=== PATIENT | female | born 1945 | race Caucasian/White ===

== ENCOUNTER 2023-06-21 16:05 | Outpatient (OUT) | payer MEDICARE, SELFPAY ==
--- NOTE | 2023-06-21 | XR_ITS ---
The [address] [address] Patient Name: MIYA THOMAS MRN: [id number] date: 1945 Sex: F Assigned Patient Location: [facility] Current Patient Location: Accession/Order Number: [id number] Exam Date: 06/21/2023 16:28 Report Date: 06/22/2023 05:37 At the request of: LONI ROSALES Procedure: XR chest 2V EXAMINATION: XR chest 2V HISTORY: Chronic cough, R05.3 COMPARISON: XR chest 03/31/2019, CT chest 09/10/2022 FINDINGS: LUNGS: Hyperexpanded lungs. No appreciable infiltrates or mass. VASCULATURE: No increased pulmonary vasculature. PLEURA: No pneumothorax, effusion, or pleural thickening. CARDIAC: No cardiomegaly or cardiac silhouette abnormality. MEDIASTINUM: No visible mass or adenopathy. BONES: No fracture or visible bone lesion. OTHER: Negative. XR/XR chest 2V IMPRESSION: 1. No acute cardiopulmonary process. 2. Stable hyperexpanded lungs. Electronically authenticated by: ABBE WEBSTER Date: 06/22/2023 05:37
== END 2023-06-21 16:06 | disposition home or self-care (01) ==
LOC: RAD 16:12
PROVIDERS: PCP Family Medicine; Visit Provider Family Medicine
DX: R05.3 Chronic cough (principal)
CPT/HCPCS: 71046

== ENCOUNTER 2023-08-11 09:57 | Outpatient (OUT) | payer MEDICARE, SELFPAY ==
--- NOTE | 2023-08-11 10:10 | MM_ITS ---
Patient: MIYA THOMAS Exam Date: 08/11/2023 : 1945 Gender:F Ordering : DR Dileep Covarrubias . Admission #: [id number] Family : Order #: [id number] CLICK HERE TO VIEW EXAM RADIOLOGY REPORT PROCEDURE: MM TOMOSYNTHESIS SCREENING BI COMPARISON: MG MAMM SCREEN 3D APPLE CAD, 08/03/2021. MG MAMM SCREEN 3D APPLE CAD, 08/04/2022. INDICATIONS: Screening Calculator Name NCI Breast Cancer Risk Assessment Tool 5 Year Breast Cancer Risk 2.40% Lifetime Breast Cancer Risk 4.90% Personal Breast Cancer No Personal Ovarian Cancer No Treatments None Family Cancers Mother with lung cancer at age 82. LOCATION: [facility] BREAST COMPOSITION: Heterogeneously dense,which may obscure small masses. FINDINGS: DIAGNOSTIC CATEGORY 1--NEGATIVE. NO CHANGE FROM COMPARISON ASSESSMENT. Scattered benign-appearing calcifications are present. RIGHT BREAST: No significant suspicious finding. LEFT BREAST: No significant suspicious finding. RECOMMENDATIONS: ROUTINE MAMMOGRAM AND CLINICAL EVALUATION IN 12 MONTHS. PLEASE NOTE: A NORMAL MAMMOGRAM DOES NOT EXCLUDE THE POSSIBILITY OF BREAST CANCER. A CLINICALLY SUSPICIOUS PALPABLE LUMP SHOULD BE BIOPSIED. Dictated by: Amilcar Patterson MD on 08/12/2023 at 08:45 Approved by: Amilcar Patterson MD on 08/12/2023 at 08:47
--- NOTE | 2023-08-11 10:10 | CT_ITS ---
[address] [address] Patient Name: MIYA THOMAS MRN: [id number] date: 1945 Sex: F Assigned Patient Location: CT Current Patient Location: Accession/Order Number: [id number] Exam Date: 08/11/2023 10:20 Report Date: 08/12/2023 07:35 At the request of: LONI ROSALES Procedure: CT lung screening low-dose EXAMINATION: CT lung screening low-dose HISTORY: Nicotine Dependence F17.210 COMPARISON: No relevant comparison available. TECHNIQUE: Axial, Coronal, and Sagittal images were created without the administration of IV contrast material. Dose reduction techniques were achieved by using automated exposure control and/or adjustment of mA and/or kV according to patient size and/or use of iterative reconstruction technique. FINDINGS: LUNGS: Scattered subcentimeter pulmonary nodules the largest measures 5 mm, subpleural right lower lobe axial image #91. Mild centrilobular emphysema with a biapical predominance. No bronchiectasis or peribronchial thickening PLEURA: No mass, effusion, or pneumothorax. VASCULATURE: No abnormality. TEO: No mass or pathologic adenopathy. MEDIASTINUM: No mass or pathologic adenopathy. CARDIAC: No enlargement or pericardial effusion. Moderate coronary atherosclerosis AORTA: No aneurysm or dissection. CHEST WALL: No mass or axillary adenopathy BONES: No bone lesion or fracture. LIMITED ABDOMEN: No suspicious findings. Limited images of the upper abdomen. OTHER: Negative. CT/CT lung screening low-dose IMPRESSION: LUNG SCREENING: Lung-RADS Category 2- Benign Appearance or Behavior. Nodules with a very low likelihood of becoming a clinically active cancer due to size or lack of growth. 2. Continue annual screening with LDCT in 12 months. Electronically authenticated by: VERONICA DUNCAN Date: 08/12/2023 07:35
== END 2023-08-11 09:58 | disposition home or self-care (01) ==
PROVIDERS: PCP Family Medicine; Visit Provider Family Medicine
DX: F17.210 Nicotine dependence, cigarettes, uncomplicated (principal); Z12.31 Encounter for screening mammogram for malignant neoplasm of breast; Z80.1 Family history of malignant neoplasm of trachea, bronchus and lung
CPT/HCPCS: 71271; 77063; 77067

== ENCOUNTER 2023-09-07 11:57 | Outpatient (OUT) | payer MEDICARE, SELFPAY ==
[2023-09-07 12:40] LABS: Basophils Absolute Auto 0.1 10^3/uL (0.0-0.1); Basophils Percent Auto 0.9 % (0.2-2.0); Eosinophils Absolute Auto 0.2 10^3/uL (0.0-0.7); Eosinophils Percent Auto 2.5 % (0.9-7.0); Hematocrit 43.4 % (36.0-48.0); Hemoglobin 14.2 g/dL (12.0-16.0); Immature Granulocytes Abs Auto 0.02 10^3/uL (0.00-0.03); Immature Granulocytes Pct Auto 0.3 % (0.0-0.5); Lymphocytes Absolute Auto 1.8 10^3/uL (1.2-3.8); Lymphocytes Percent Auto 26.2 % (20.5-60.0); Mean Corpuscular HGB Conc 32.7 g/dL (29.9-35.2); Mean Corpuscular Hemoglobin 31.4 pg (26.7-34.0); Mean Platelet Volume 9.7 fL (9.5-13.5); Monocytes Absolute Auto 0.8 10^3/uL (0.3-0.8); Monocytes Percent Auto 12.1 % (1.7-12.0); Neutrophils Absolute Auto 3.9 10^3/uL (1.4-6.5); Platelet Count 332 10^3/uL (150-450); Red Blood Count 4.52 10^6/uL (4.20-5.40); Red Cell Distribution Width 13.2 % (11.0-15.0); White Blood Count 6.7 10^3/uL (4.0-11.0)
[2023-09-07 13:10] LABS: Estimated Average Glucose 114 mg/dL; Glycohemoglobin A1C 5.6 % (4.5-6.2)
[2023-09-07 13:25] LABS: Chloride 102 mmol/L (98-107); Potassium 4.2 mmol/L (3.5-5.1); Sodium 139 mmol/L (136-145)
[2023-09-07 13:26] LABS: Alanine Aminotransferase 18 U/L (14-59); Alkaline Phosphatase 102 U/L (46-116); Anion Gap 9.9; Aspartate Amino Transferase 22 U/L (15-37); BUN Creatinine Ratio 22.7; Bilirubin Total 0.5 mg/dL (0.2-1.0); Calcium 9.8 mg/dL (8.5-10.1); Carbon Dioxide 31.3 mmol/L (21.0-32.0); Estimated GFR (African America >60 (>=60); Estimated GFR (Non-African Ame >60 (>=60); Glucose 88 mg/dL (74-106); Total Protein 7.2 g/dL (6.4-8.2)
[2023-09-07 13:27] LABS: Albumin Globulin Ratio 1.1; Albumin Level 3.8 g/dL (3.4-5.0); Chol HDL Ratio 3.3; Cholesterol 198 mg/dL (<=200); Free T3 2.66 pg/mL (2.18-3.98); Globulin 3.4 g/dL; HDL Cholesterol 60 mg/dL (40-60); Thyroid Stimulating Hormone 2.143 uIU/mL (0.358-3.740); Triglycerides 59 mg/dL (<=150); VLDL CHOLESTEROL 11.8 mg/dL
== END 2023-09-07 11:58 | disposition home or self-care (01) ==
LOC: LAB 12:00
PROVIDERS: PCP Family Medicine; Visit Provider Family Medicine
DX: K21.9 Gastro-esophageal reflux disease without esophagitis (principal); R43.9 Unspecified disturbances of smell and taste; J44.9 Chronic obstructive pulmonary disease, unspecified; E78.00 Pure hypercholesterolemia, unspecified; R73.09 Other abnormal glucose; D64.9 Anemia, unspecified; E55.9 Vitamin D deficiency, unspecified
CPT/HCPCS: 36415; 80053; 80061; 82306; 83036; 83540; 84436; 84443; 84481; 85025

== ENCOUNTER 2023-11-08 12:46 | Emergency (ER) | payer MEDICARE, SELFPAY ==
[2023-11-08 12:56] VITALS: BP 124/51; PULSE 81; RESP 24; TEMP 36.6; O2SAT 94; BMI 21.0
--- OUTSIDE RECORDS SUMMARY | 2023-11-08 12:56 | XMS_ITS | CCD ---
Author Name Unknown Address [address] [place] [address] Organization [facility] Care Team Providers Care Can Line Operator Name Role Phone DR LONI COVARRUBIAS Admitting Unavailable CHERELLEY, DR IVEY Attending Unavailable CHERELLEY, DR IVEY Consulting Unavailable BOBBY, DR IVEY Primary Care Unavailable CHERELLEY, DR IVEY Primary Care Unavailable BOBBY, DR IVEY Admitting Unavailable BOBBY, DR IVEY Attending Unavailable BOBBY, DR IVEY Consulting Unavailable PERLA, DR VERONICA Christian Consulting Unavailable HIPOLITO FRANCO Admitting Unavailable HIPOLITO FRANCO Attending Unavailable ELEANOR, DR ABBE Quiroz Consulting Unavailable BOBBY, DR IVEY Primary Care Unavailable HIPOLITO FRANCO Consulting Unavailable BOBBY, DR IVEY Admitting Unavailable BOBBY, DR IVEY Attending Unavailable BOBBY, DR IVEY Consulting Unavailable BOBBY, DR IVEY Primary Care Unavailable ZIEBSABIHA, DR ABBE Quiroz Consulting Unavailable CHERELLEY, DR IVEY Admitting Unavailable HOY, DR IVEY Attending Unavailable HOY, DR IVEY Consulting Unavailable BOBBY, DR IVEY Primary Care Unavailable BOBBY, DR IVEY Admitting Unavailable BOBBY, DR IVEY Attending Unavailable BOBBY, DR IVEY Consulting Unavailable BOBBY, DR IVEY Primary Care Unavailable BOBBY, DR IVEY Primary Care Unavailable BOBBY, DR IVEY Consulting Unavailable BOBBY, DR IVEY Admitting Unavailable BOBBY, DR IVEY Attending Unavailable BILLY, DR ARNOLD Admitting Unavailable BILLY, DR ARNOLD Attending Unavailable PERLA, DR VERONICA Christian Consulting Unavailable BOBBY, DR IVEY Primary Care Unavailable BILLY, DR ARNOLD Consulting Unavailable Loni Covarrubias MD Primary Care Provider [phone] LONI COVRARUBIAS Primary Care Unavailable CATALINO LONDON Attending Unavaila ble Allergies Allergy Classification Reported Allergen(s) Allergy Type Date of Onset Reaction(s) Facility (1 source) black walnut pollen extract Drug Allergy [facility] Repository (1 source) HMG-CoA reductase inhibitor Drug Allergy 02-28-2023 Unknown [facility] Medications Completed/Discontinued Medications Medication Drug Class(es) Dates Sig (Normalized) Sig (Original) [id number] 200 actuat albuterol 0.09 mg/actuat metered dose inhaler (1 source) beta2-Adrenergic Agonist Start: 11-12-2020 take 2 puff(s) by inhalation every six hours as needed albuterol HFA (PROAIR HFA) 90 mcg/actuation inhaler 2 Puffs every 6 hours as needed. Take as directed 0 11/12/2020 Active Comment on above: 2 Puffs every 6 hour s as needed. Take as directed ascorbic acid 500 mg oral tablet (1 source) Vitamin C Start: 11-07-1999 ascorbic acid, vitamin C, (VITAMIN C) 500 mg tablet aspirin 81 mg delayed release oral tablet (1 source) Platelet Aggregation Inhibitor, Nonsteroidal Anti-inflammatory Drug Start: 11-07-1989 aspirin, enteric coated (ASPIRIN, ENTERIC COATED) 81 mg EC tablet benoxinate hydrochloride 4 mg/ml / fluorescein sodium 2.5 mg/ml ophthalmic solution (1 source) Diagnostic Dye Start: 02-28-2023 End: 03-01-2023 fluorescein-benoxi manuel 0.25-0.4 % 1 Drop (FLURESS) biotin 2.5 mg oral capsule (1 source) Start: 11-07-1989 Biotin 2,500 mcg cap CALCIUM CITRATE-VITAMIN D3 ORAL (1 source) Start: 11-07-1989 CALCIUM CITRATE-VITAMIN D3 ORAL chondroitin sulfates 400 mg / glucosamine hydrochloride 500 mg oral capsule (1 source) Start: 08-07-1990 glucosamine-chondr oitin 500-400 mg capsule denosumab (1 source) RANK Ligand Inhibitor Start: 07-08-2020 denosumab (PROLIA SUBCUTANEOUS) docusate sodium 100 mg oral capsule (1 source) Start: 11-07-1989 docusate sodium (COLACE) 100 mg capsule ezetimibe 10 mg oral tablet (1 source) Dietary Cholesterol Absorption Inhibitor Start: 07-05-2020 take 1 tablet by mouth once daily ezetimibe (ZETIA) 10 mg tablet Take 10 mg by mouth once daily. 0 07/05/2020 Active Comment on above: Take 10 mg by mouth once daily. 30 actuat fluticasone furoate 0.1 mg/actuat / vilanterol 0.025 mg/actuat dry powder inhaler (1 source) Corticosteroid, beta2-Adrenergic Agonist Start: 09-07-2020 BREO ELLIPTA 100-25 mcg/dose inhaler gabapentin 100 mg oral capsule (1 source) Anti-epileptic Agent Start: 11-12-2020 take 1 capsule by mouth once daily as needed gabapentin (NEURONTIN) 100 mg capsule Take 1 capsule by mouth once daily as needed (for sciatica) for up to 180 days. 0 11/12/2020 Active Comment on above: Take 1 capsule by cox monett once daily as needed (for sciatica) for up to 180 days. gemfibrozil 600 mg oral tablet (1 source) Peroxisome Proliferator Receptor alpha Agonist Start: 09-03-2010 take 1 tablet by mouth once daily gemfibrozil (LOPID) 600 mg ORAL tablet Take one(1) tablet two(2) times daily. 0 09/03/2010 Active Comment on above: Take one(1) tablet t wo(2) times daily. ketorolac tromethamine 5 mg/ml ophthalmic solution (2 sources) Nonsteroidal Anti-inflammatory Drug, Cyclooxygenase Inhibitor Start: 11-19-2020 End: 02-28-2023 keTORolac (ACULAR) 0.5 % ophthalmic solution USE DIRECTED BY PHYSICIAN, IN OPERATIVE EYE, BEGINNING ONE DAY AFTER SURGERY 1 Bottle 0 12/03/2020 02/28/2023 Discontinued (Course of therapy completed) Comment on above: USE DIRECTED BY Brandie LAKE, IN OPERATIVE EYE, BEGINNING ONE DAY AFTER SURGERY mecobalamin 1 mg chewable tablet (1 source) Start: 11-07-2014 mecobalamin, vitamin B12, 1,000 mcg chew multivit,iron,cigarette examiner als/lutein (CENTRUM SILVER ULTRA WOMEN'S ORAL) (1 source) Start: 11-07-1999 multivit,iron,mine rals/lutein (CENTRUM SILVER ULTRA WOMEN'S ORAL) omega 4-klv-nfr-fish oil (FISH OIL) 100-160-1,000 mg cap (1 source) omega 2-zhb-fdt-fish oil (FISH OIL) 100-160-1,000 mg cap Fish Oil 0 Active Comment on above: Fish Oil pantoprazole 40 mg delayed release oral tablet (1 source) Proton Pump Inhibitor Start: 09-03-2010 take 1 tablet by mouth once daily pantoprazole (PROTONIX) 40 mg ORAL tablet Take one(1) tablet daily. 0 09/03/2010 Active Comment on above: Take one(1) tablet d aily. phenylephrine hydrochloride 25 mg/ml ophthalmic solution (1 source) alpha-1 Adrenergic Agonist Start: 02-28-2023 End: 03-01-2023 PHENYLephrine 2.5 % 1 Drop (AK-DILATE, HENNA-SYNEPHRINE) prednisoLONE acetate 10 mg/ml ophthalmic suspension (2 sources) Corticosteroid Start: 11-19-2020 End: 02-28-2023 prednisoLONE acetate (PRED FORTE, ECONOPRED PLUS) 1 % ophthalmic suspension USE DIRECTED BY PHYSICIAN, IN OPERATIVE EYE, BEGINNING ONE DAY AFTER SURGERY 1 Bottle 0 12/03/2020 02/28/2023 Discontinued (Course of therapy completed) Comment on above: USE DIRECTED BY Brandie LAKE, IN OPERATIVE EYE, BEGINNING ONE DAY AFTER SURGERY simethicone 125 mg oral capsule (1 source) Start: 11-07-2014 Simethicone 125 mg cap tropicamide 10 mg/ml ophthalmic solution (1 source) Anticholinergic Start: 02-28-2023 End: 03-01-2023 tropicamide 1 % 1 Drop (MYDRIACYL) vitamin e 180 mg oral capsule (1 source) Start: 11-07-1989 vitamin E mixed 400 unit cap Problems Active Problems Problem Classification Problem Date Documented Date Episodic/Chronic Cataract (1 source) Bilateral pseudophakia; Translations: [Presence of intraocular lens] Chronic Chronic obstructive pulmonary disease and bronchiectasis (2 sources) Chronic obstructive pulmonary disease, unspecified; Translations: [Chronic obstructive lung disease] Onset: 2 11-12-2020 Chronic Disorders of lipid metabolism (3 sources) Pure hypercholesterolemia, unspecified; Translations: [Hyperlipidemia, unspecified] Onset: 2 11-12-2020 Chronic Esophageal disorders (1 source) Gastroesophageal reflux disease; Translations: [Gastro-esophageal reflux disease without esophagitis] 11-12-2020 Chronic Inflammation; infection of eye (except that caused by tuberculosis or sexually transmitteddisease) (2 sources) Keratoconjunctivitis sicca; Translations: [Keratoconjunctivitis sicca, not specified as Sjogren's, bilateral] Chronic Nutritional deficiencies (1 source) Vitamin D deficiency, unspecified; Translations: [VITAMIN D DEFICIENCY UNSPECIFIED] Onset: 2 Chronic Osteoporosis (4 sources) Age-related osteoporosis without current pathological fracture; Translations: [AGE-REL OSTEOPOR W/O CURR PATH FX] Onset: 3 Chronic Other eye disorders (1 source) Bilateral vitreous degeneration of eyes; Translations: [Vitreous degeneration, bilateral] Chronic Other eye disorders (1 source) Bilateral vitreous floaters; Translations: [Other vitreous opacities, bilateral] Chronic Other lower respiratory disease (1 source) Other nonspecific abnormal finding of lung field; Translations: [OTH NONSPECIFIC ABN FIND LNG FIELD] Onset: 2 Episodic Residual codes; unclassified (1 source) Tobacco user; Translations: [Tobacco use] 11-12-2020 Episodic Retinal detachments; defects; vascular occlusion; and retinopathy (2 sources) Retinal pigment epithelial abnormality; Translations: [Other specified retinal disorders] Chronic Substance-related disorders (4 sources) Nicotine dependence, cigarettes, uncomplicated; Translations: [NICOTINE DEPEND CIGARETTES UNCOMP] Onset: 2 Chronic Unclassified (3 sources) COUGH, UNSPECIFIED; Translations: [COUGH, UNSPECIFIED] Onset: 2 Unclassified (1 source) CONTACT W/AND (SUSP) EXPOS COVID-19; Translations: [CONTACT W/AND (SUSP) EXPOS COVID-19] Onset: 2 Past or Other Problems Problem Classification Problem Date Documented Da te Episodic/Chronic Calculus of urinary tract (4 sources) Calculus of kidney; Translations: [CALCULUS OF KIDNEY] Onset: 12-18-2021 Episodic Deficiency and other anemia (1 source) Anemia, unspecified; Translations: [ANEMIA UNSPECIFIED] Onset: 09-01-2022 Episodic Diabetes mellitus without complication (1 source) Other abnormal glucose; Translations: [OTHER ABNORMAL GLUCOSE] Onset: 09-01-2022 Episodic Malaise and fatigue (4 sources) Other fatigue; Translations: [OTHER FATIGUE] Onset: 08-27-2022 Episodic Other lower respiratory disease (1 source) Other forms of dyspnea; Translations: [OTHER FORMS OF DYSPNEA] Onset: 09-01-2022 Episodic Other screening for suspected conditions (not mental disorders or infectious disease) (4 sources) Encounter for screening mammogram for malignant neoplasm of breast; Translations: [ENC SCR MAMMO MALIG NEOPLASM BREAST] Onset: 08-04-2022 Episodic Pulmonary heart disease (1 source) Personal history of pulmonary embolism; Translations: [PERSONAL HISTORY PULMONARY EMBOLISM] Onset: 09-01-2022 Episodic Residual codes; unclassified (1 source) Family history of malignant neoplasm of trachea, bronchus and lung; Translations: [FAM HX MALIG NEOPLSM TRACH BRON LNG] Onset: 08-06-2022 Episodic Unclassified (1 source) COUGH, UNSPECIFIED; Translations: [COUGH, UNSPECIFIED] Onset: 05-12-2022 Results Test Name Value Interpretation Reference Range Facil ity CALCIUMon 12-07-2022 Calcium [Mass/Vol] 9.4 mg/dL Normal 8.5-10.1 [facility] Comment on above: Performed By: #### Sherry TAMAYO CA #### [facility] [address] [place] [address] Dr. Lori Bautista CREATININEon 12-07-2022 Creatinine [Mass/Vol] 0.64 mg/dL Normal 0.55-1.02 [facility] Comment on above: Performed By: #### Sherry TAMAYO CA #### [facility] [address] [place] [address] Dr. Lori Bautista EGFR-AF MONTENEGRIN >60 Normal >=60 [facility] Comment on above: Performed By: #### Sherry TAMAYO CA #### [facility] [address] [place] [address] Dr. Lori Bautista EGFR-NON AF MONTENEGRIN >60 Normal >=60 [facility] Comment on above: Performed By: #### Sherry TAMAYO, CA #### [facility] [address] [place] [address] LUNG CANCER SCREENINGon 1 11-10-2021 CT LUNG CANCER SCREENING EXAMINATION: CT LUNG CANCER SCREENING HISTORY: Tobacco dependence caused by cigarettes COMPARISON: No relevant comparison available. TECHNIQUE: Axial, Coronal, and Sagittal images were created without the administration of IV contrast material. Dose reduction techniques were achieved by using automated exposure control and/or adjustment of mA and/or kV according to patient size and/or use of iterative reconstruction technique. FINDINGS: LUNGS: Mild peribronchial thickening without bronchiectasis. Area of patchy and nodular opacity is identified in the medial aspect of the right lower lobe best visualized on images 73 through 90 nodules measuring up to 5.5 mm. A few scattered additional punctate pulmonary nodules, nonspecific mild diffuse centrilobular emphysema with an upper lobe predominance PLEURA: No mass, effusion, or pneumothorax. VASCULATURE: No abnormality. TEO: No mass or pathologic adenopathy. MEDIASTINUM: No mass or pathologic adenopathy. CARDIAC: No enlargement, pericardial thickening, or significant calcification. AORTA: No aneurysm or dissection. CHEST WALL: No mass or axillary adenopathy BONES: No bone lesion or fracture. LIMITED ABDOMEN: No suspicious findings. Limited images of the upper abdomen. OTHER: Negative. IMPRESSION: Area of groundglass and subcentimeter nodules in the medial aspect of the right lower lobe. This could represent an inflammatory, infectious, granulomatous or malignant process. Short interval follow-up is required with CT exam in 6 months Lung-RADs 3 FINDINGS: Solid nodule(s): Greater than/equal 6 mm to >8 mm at baseline OR new 4 mm to <6 mm part solid nodule(s) greater than/equal to 6 mm total diameter with solid component <6 mm OR new <6 mm total diameter; nonsolid nodule(s) (GGN): Greater than/equal to [address] or new. MANAGEMENT: 6 month LDCT. Electronically authenticated by: VERONICA DUNCAN Date: 2022-09-10 14:57 Normal [facility] INSULINon 08-28-2022 Insulin 4.3 uIU/mL Normal 2.6-24.9 [facility] Comment on above: Performed By: #### I NSULIN #### [facility] [address] [place] [address] Dr. Lori Bautista CBC AUTO DIFFon 08-27-2022 BASO # 0.1 103/ul Normal 0.0-0.1 [facility] Comment on above: Performed By: #### C BC #### [facility] [address] [address] [address] Lori Bautista Basophils/100 WBC (Bld) 0.6 % Normal 0.2-2.0 [facility] Comment on above: Performed By: #### C BC #### [facility] [address] [place] [address] Dr. Lori Bautista EO # 0.1 103/ul Normal 0.0-0.7 [facility] Comment on above: Performed By: #### C BC #### [facility] [address] [place] [address] Dr. Lori Bautista Eosinophils/100 WBC (Bld) 0.6 % Critically low 0.9-7.0 [facility] Comment on above: Performed By: #### C BC #### [facility] [address] [place] [address] Dr. Lori Bautista Erythrocyte distribution width (RBC) [Ratio] 13.2 % Normal 11.0-15.0 [facility] Comment on above: Performed By: #### C BC #### [facility] [address] [place] [address] Dr. Lori Bautista Hematocrit (Bld) [Volume fraction] 41.3 % Normal 36.0-48.0 [facility] Comment on above: Performed By: #### C BC #### [facility] [address] [place] [address] Dr. Lori Bautista Hemoglobin (Bld) [Mass/Vol] 13.5 g/dL Normal 12.0-16.0 [facility] Comment on above: Performed By: #### C BC #### [facility] [address] [place] [address] Dr. Lori Bautista IG # 0.02 10e3/ul Normal 0.00-0.03 [facility] Comment on above: Performed By: #### C BC #### [facility] [address] [place] [address] Dr. Lori Bautista IG % 0.3 % Normal 0.0-0.5 [facility] Comment on above: Performed By: #### C BC #### [facility] [address] [place] [address] Dr. Lori Bautista LYMPH # 2.0 103/ul Normal 1.2-3.8 [facility] Comment on above: Performed By: #### C BC #### [facility] [address] [place] [address] Dr. Lori Bautista Lymphocytes/100 WBC (Bld) 25.6 % Normal 20.5-60.0 [facility] Comment on above: Performed By: #### C BC #### [facility] [address] [place] [address] Dr. Lori Bautista MANUAL DIFF REQ NO Normal [facility] Comment on above: Performed By: #### C BC #### [facility] [address] [place] [address] Dr. Lori Bautista MCH (RBC) [Entitic mass] 31.1 pg Normal 26.7-34.0 [facility] Comment on above: Performed By: #### C BC #### [facility] [address] [place] [address] Dr. Lori Bautista MCHC (RBC) [Mass/Vol] 32.7 g/dL Normal 29.9-35.2 [facility] Comment on above: Performed By: #### C BC #### [facility] [address] [place] [address] Dr. Lori Bautista MCV (RBC) [Entitic vol] 95.2 fL Normal 81.0-99.0 [facility] Comment on above: Performed By: #### C BC #### [facility] [address] [place] [address] Dr. Lori Bautista MONO # 0.7 103/ul Normal 0.3-0.8 [facility] Comment on above: Performed By: #### C BC #### [facility] [address] [place] [address] Dr. Lori Bautista Monocytes/100 WBC (Bld) 8.4 % Normal 1.7-12.0 [facility] Comment on above: Performed By: #### C BC #### [facility] [address] [place] [address] Dr. Lori Bautista NEUT # 5.0 103/ul Normal 1.4-6.5 [facility] Comment on above: Performed By: #### C BC #### [facility] [address] [address] [address] Lori Bautista Neutrophils/100 WBC (Bld) 64.5 % Normal 43.0-75.0 [facility] Comment on above: Performed By: #### C BC #### [facility] [address] [address] [address] Lori Bautista Platelet mean volume (Bld) [Entitic vol] 9.9 fL Normal 9.5-13.5 [facility] Comment on above: Performed By: #### C BC #### [facility] [address] [address] [address] Lori Bautista PLT 310 103/ul Normal 150-450 [facility] Comment on above: Performed By: #### C BC #### [facility] [address] [address] [address] Lori Bautista RBC 4.34 106/ul Normal 4.20-5.40 [facility] Comment on above: Performed By: #### C BC #### [facility] [address] [address] [address] Lori Bautista WBC 7.8 103/ul Normal 4.0-11.0 [facility] Comment on above: Performed By: #### C BC #### [facility] [address] [address] [address] Lori Bautista FREE THYROXINE INDEX T7on FTI 2.26 Normal 1.30-4.50 [facility] Comment on above: Performed By: #### L IPID, TSH, T7, CMP ####[facility] [address] [address]Dr. Lori Bautista T3U 31.0 % Normal 30.0-39.0 [facility] Comment on above: Performed By: #### L IPID, TSH, T7, CMP ####[facility] [address] [id number]. Lori Bautista T4 [Mass/Vol] 7.30 ug/dL Normal 4.80-13.90 [facility] Comment on above: Performed By: #### L IPID, TSH, T7, CMP ####[facility] [address] [id number] Bautista GLYCOHEMOGLOBIN A1Con 2021 ADA RECOMMENDATION SEE BELOW Normal [facility] Comment on above: Result Comment: ADA RECOMMENDED LIMIT 4.0 - 6.0 ADA THERAPEUTIC TARGET < 7.0 ACTION SUGGESTED > 7.0 Performed By: #### A 1C #### [facility] [address] [address] [address] Lori Bautista Glucose [Mass/Vol] 117 mg/dL Normal [facility] Comment on above: Performed By: #### A 1C #### [facility] [address] [address] [address] Lori Bautista HbA1c (Bld) [Mass fraction] 5.7 % Normal 4.5-6.2 [facility] Comment on above: Performed By: #### A 1C #### [facility] [address] [address] [address] Lori Bautista IRONon 08-27-2022 Iron [Mass/Vol] 105.0 ug/dL Normal 50.0-170.0 [facility] Comment on above: Performed By: #### I SAROJ VITAD ####[facility] [address] [id number] Bautista LIPID PROFILEon 08-27-2022 CHOL-HDL RATIO NORM SEE BELOW Normal [facility] Comment on above: Result Comment: 3.3 - 4.4 LOW RISK 4.4 - 7.1 AVERAGE RISK 7.1 - 11.0 MODERATE RISK >11.0 HIGH RISK Performed By: #### L IPID, TSH, T7, CMP ####[facility] [address] [id number] Bautista Cholesterol [Mass/Vol] 186 mg/dL Normal <=200 [facility] Comment on above: Performed By: #### L IPID, TSH, T7, CMP ####[facility] [address] [id number] Bautista Cholesterol in HDL [Mass/Vol] 55 mg/dL Normal 40-60 [facility] Comment on above: Performed By: #### L IPID, TSH, T7, CMP ####[facility] [address] [id number]. Lori Bautista Cholesterol in LDL [Mass/Vol] 116.4 mg/dL Normal [facility] Comment on above: Performed By: #### L IPID, TSH, T7, CMP ####[facility] [address] [id number]. Lori Bautista Cholesterol.total/Cho lesterol in HDL [Mass ratio] 3.4 {ratio} Normal [facility] Comment on above: Performed By: #### L IPID, TSH, T7, CMP ####[facility] [address] [id number]. Lori Bautista HDL NORMAL > or = 60 mg/dl - LO W CARDIOVASCULAR RISK <40 mg/dl - HIGH CARDIOVASCULAR RISK Normal [facility] Comment on above: Performed By: #### L IPID, TSH, T7, CMP ####[facility] [address] [id number]. Lori Bautista LDL CALC NORMAL SEE BELOW Normal [facility] Comment on above: Result Comment: <100 mg/dl OPTIMAL 100 - 129 mg/dl NEAR OR ABOVE OPTIMAL 130 - 159 mg/dl BORDERLINE HIGH 160 - 189 mg/dl HIGH >190 mg/dl VERY HIGH Performed By: #### L IPID, TSH, T7, CMP ####[facility] [address] [id number]. Lori Bautista Triglyceride [Mass/Vol] 73 mg/dL Normal <=150 [facility] Comment on above: Performed By: #### L IPID, TSH, T7, CMP ####[facility] [address] [id number]. Lori Bautista VLDL CALC 14.6 mg/dL Normal [facility] Comment on above: Performed By: #### L IPID, TSH, T7, CMP ####[facility] [address] [id number]. Lori Bautista PROF 14(COMP METB)on 022 Albumin [Mass/Vol] 3.9 g/dL Normal 3.4-5.0 [facility] Comment on above: Performed By: #### L IPID, TSH, T7, CMP ####[facility] [address] [address]Dr. Kimcira Michele Albumin/Globulin [Mass ratio] 1.2 {ratio} Normal [facility] Comment on above: Performed By: #### L IPID, TSH, T7, CMP ####[facility] [address] [place], [place] [address]Dr. Lori Bautista ALP [Catalytic activity/Vol] 68 U/L Normal 46-116 [facility] Comment on above: Performed By: #### L IPID, TSH, T7, CMP ####[facility] [address] [place], [place] [address]Dr. Lori Bautista ALT [Catalytic activity/Vol] 20 U/L Normal 14-59 [facility] Comment on above: Performed By: #### L IPID, TSH, T7, CMP ####[facility] [address] [place], [place] [address]Dr. Lori Bautista Anion gap [Moles/Vol] 8.2 mmol/L Normal [facility] Comment on above: Performed By: #### L IPID, TSH, T7, CMP ####[facility] [address] [place], [place] [address]Dr. Lori Bautista AST [Catalytic activity/Vol] 22 U/L Normal 15-37 [facility] Comment on above: Performed By: #### L IPID, TSH, T7, CMP ####[facility] [address] [place], [place] [address]Dr. Lori Bautista Bilirubin [Mass/Vol] 0.3 mg/dL Normal 0.2-1.0 [facility] Comment on above: Performed By: #### L IPID, TSH, T7, CMP ####[facility] [address] [place], [place] [address]Dr. Lori Bautista Calcium [Mass/Vol] 9.2 mg/dL Normal 8.5-10.1 [facility] Comment on above: Performed By: #### L IPID, TSH, T7, CMP ####[facility] [address] [address]Dr. Lori Bautista Chloride [Moles/Vol] 105 mmol/L Normal 98-107 [facility] Comment on above: Performed By: #### L IPID, TSH, T7, CMP ####[facility] [address] [place], [place] [address]Dr. Lori Bautista CO2 [Moles/Vol] 30.0 mmol/L Normal 21.0-32.0 [facility] Comment on above: Performed By: #### L IPID, TSH, T7, CMP ####[facility] [facility] [id number] [place], [place] [address]Dr. Lori Bautista Creatinine [Mass/Vol] 0.67 mg/dL Normal 0.55-1.02 [facility] Comment on above: Performed By: #### L IPID, TSH, T7, CMP ####[facility] [address] [place], [place] [address]Dr. Lori Bautista EGFR-AF MONTENEGRIN >60 Normal >=60 [facility] Comment on above: Performed By: #### L IPID, TSH, T7, CMP ####[facility] [address] [place], [place] [address]Dr. Lori Bautista EGFR-NON AF MONTENEGRIN >60 Normal >=60 [facility] Comment on above: Performed By: #### L IPID, TSH, T7, CMP ####[facility] [address] [place], [place] [address]Dr. Lori Bautista Globulin (S) [Mass/Vol] 3.3 g/dL Normal [facility] Comment on above: Performed By: #### L IPID, TSH, T7, CMP ####[facility] [address] [place], [place] [address]Dr. Lori Michele Glucose [Mass/Vol] 84 mg/dL Normal 74-106 [facility] Comment on above: Performed By: #### L IPID, TSH, T7, CMP ####[facility] [address] [place], [place] [address]Dr. Lori Bautista Potassium [Moles/Vol] 4.2 mmol/L Normal 3.5-5.1 [facility] Comment on above: Performed By: #### L IPID, TSH, T7, CMP ####[facility] [address] [place] [address]Dr. Lori Bautista Protein [Mass/Vol] 7.2 g/dL Normal 6.4-8.2 [facility] Comment on above: Performed By: #### L IPID, TSH, T7, CMP ####[facility] [address] [place], [place] [id number]. Lori Bautista Sodium [Moles/Vol] 139 mmol/L Normal 136-145 [facility] Comment on above: Performed By: #### L IPID, TSH, T7, CMP ####[facility] [address] [place], [place] [address]Dr. Lori Bautista Urea nitrogen [Mass/Vol] 18.0 mg/dL Normal 7.0-18.0 [facility] Comment on above: Performed By: #### L IPID, TSH, T7, CMP ####[facility] [address] [place], [place] [address]Dr. Lori Bautista Urea nitrogen/Creatinine [Mass ratio] 26.9 mg/mg Normal [facility] Comment on above: Performed By: #### L IPID, TSH, T7, CMP ####[facility] [address] [place], [place] [address]Dr. Lori Bautista TSHon 08-27-2022 TSH 1.615 uIU/mL Normal 0.358-3.740 [facility] Comment on above: Performed By: #### L IPID, TSH, T7, CMP ####[facility] [address] [place], [place] [address]Dr. Lori Bautista VITAMIN D 25 OHon 08-27-2022 VIT D 25-OH 73.1 ng/mL Normal [facility] Comment on above: Performed By: #### I SAROJ, VITAD ####[facility] [address] [place], [place] [address]Dr. Lori Bautista VIT D RANGES SEE BELOW Normal [facility] Comment on above: Result Comment: <20 ng/mL Vit D deficient 20 - <30 ng/mL Vit D insufficient 30 - 100 ng/mL Vit D sufficient >100 ng/mL Potential Toxicity Performed By: #### I SAROJ VITROXANNA ####[facility] [address] [place], [place] [address]Yd. Lori Bautista MG MAMM SCREEN 3D APPLE CADon 08-04-2022 MG MAMM SCREEN 3D APPLE CAD Patient: MIYA THOMAS Exam Date: 08/04/2022 : 1945 Gender:F Ordering : DR CATALINA CERVANTES Admission #: [id number] Family : Order #: [id number] CLICK HERE TO VIEW EXAM RADIOLOGY REPORT PROCEDURE: MAMMOGRAM SCREENING 3D BILATERAL CAD COMPARISON: MG MAMM SCREEN APPLE W CAD, 08/01/2020. MG MAMM SCREEN 3D APPLE CAD, 08/03/2021. INDICATIONS: Screening mammography Calculator Name NCI Breast Cancer Risk Assessment Tool 5 Year Breast Cancer Risk 2.40% Lifetime Breast Cancer Risk 5.30% Personal Breast Cancer No Personal Ovarian Cancer No Treatments None Family Cancers Mother with lung cancer at age 82. LOCATION: [facility] BREAST COMPOSITION: Heterogeneously dense,which may obscure small masses. FINDINGS: DIAGNOSTIC CATEGORY 1--NEGATIVE. NO CHANGE FROM COMPARISON ASSESSMENT. Scattered benign-appearing calcifications are present. RIGHT BREAST: No significant suspicious finding. LEFT BREAST: No significant suspicious finding. RECOMMENDATIONS: ROUTINE MAMMOGRAM AND CLINICAL EVALUATION IN 12 MONTHS. PLEASE NOTE: A NORMAL MAMMOGRAM DOES NOT EXCLUDE THE POSSIBILITY OF BREAST CANCER. A CLINICALLY SUSPICIOUS PALPABLE LUMP SHOULD BE BIOPSIED. Dictated by: Veronica Duncan MD on 08/04/2022 at 13:24 Approved by: Veronica Duncan MD on 08/04/2022 at 13:25 Normal [facility] Covid-19 PCR (CVDTBH)on SARS-CoV-2 (COVID-19) RNA PABLO+probe Ql (Unsp spec) Not detected Normal NOT DETECTED [facility] Comment on above: Result Comment: This test is not yet approved or cleared by the [place] FDA. When there are no FDA-approved or cleared tests available, and other criteria are met, FDA can make tests available under an emergency access mechanism called an Emergency Use Authorization (EUA). The EUA for this test is supported by the [place] of Health and Human Service's (HHS's) declaration that circumstances exist to justify the emergency use of in vitro diagnostics for the detection and/or diagnosis of the virus that causes COVID-19. This EUA will remain in effect (meaning this test can be used) for the duration of the COVID-19 declaration justifying emergency of IVDs, unless it is terminated or revoked by FDA (after which the test may no longer be used). When diagnostic testing is negative, the possibility of a false negative should be considered in the context of a patient's recent exposures and the presence of clinical signs and symptoms consistent with SARS-CoV-2. Performed By: #### C VDTB #### [facility] [address] [place] [address] Dr. Lori Bautista SYMPTOMATIC COVID-19 ANTIGEN on 05-12-2022 EUA Statement SEE BELOW Normal [facility] Comment on above: Result Comment: This test has not been FDA cleared or approved, but has been authorized by the FDA under an Emergency Use Authorization (EUA) for use by authorized laboratories certified under CLIA that meet the requirements to perform moderate or high complexity testing. This test has been authorized only for the detection of proteins from SARS-CoV-2, not for any other viruses or pathogens. The emergency use of this test is authorized for the duration of the declaration that circumstances exist justifying the authorization of emergency use of in vitro diagnostic tests for detection and/or diagnosis of Covid-19 under section 564(b)(1) of the Act, 21 U.S.C. 360bbb-3(b)(1), unless the declaration is terminated or authorization is revoked sooner. Performed By: #### C VDAGS #### [facility] [address] [place] [address] Dr. Lori Bautista SARS-CoV-2 (COVID-19) RNA PABLO+probe Ql (Unsp spec) Negative Normal NEGATIVE [facility] Comment on above: Performed By: #### C VDAGS #### [facility] [address] [place] [address] Dr. Lori Bautista CALCIUMon 05-04-2022 Calcium [Mass/Vol] 9.6 mg/dL Normal 8.5-10.1 [facility] Comment on above: Performed By: #### LAZARUS LOBO ####[facility] [address] [place] [address]Dr. Lori Bautista CREATININEon 05-04-2022 Creatinine [Mass/Vol] 0.68 mg/dL Normal 0.55-1.02 [facility] Comment on above: Performed By: #### LAZARUS LOBO ####[facility] [address] [place] [address]Dr. Lori Bautista EGFR-AF MONTENEGRIN Normal >=60 [facility] Comment on above: Performed By: #### LAZARUS LOBO ####[facility] [address] [place] [address]Dr. Lori Bautista EGFR-NON AF MONTENEGRIN Normal >=60 [facility] Comment on above: Performed By: #### LAZARUS LOBO ####[facility] [address] [place] [address]Dr. Lori Bautista XR DEXA BONE DENSITYon 03-29 XR DEXA BONE DENSITY EXAMINATION: XR DEX A BONE DENSITY, 03/29/2022 11:32 AM EDT HISTORY: Senile osteoporosis COMPARISON: DEXA bone densitometry 11/02/2018 TECHNIQUE: Dual-energy X-ray absorptiometry (DEXA) bone density study performed for the axial skeleton. FINDINGS: SPINE ANALYSIS: Average bone mineral density is 1.045 g/cm2. T-score (standard deviation relative to young adult mean): -1.1 . +7.8% change since prior study. HIP ANALYSIS: Lowest bone mineral density is within the left femoral neck, 0.63 g/cm2. T-score (standard deviation relative to young adult mean): -2.6 . -0.6% change since prior study. IMPRESSION: World Da Organization Classification: Osteoporosis - High Fracture Risk Electronically authenticated by: ABBE WEBSTER Date: 2022-03-29 12:43 Normal [facility] XR KUB 1 VIEWon 12-18-2021 XR KUB 1 VIEW EXAMINATION: XR KUB 1 VIEW HISTORY: Kidney stone COMPARISON: XR KUB 03/19/2021 FINDINGS: KIDNEY/URETER - RIGHT: No visible renal or ureteral calcifications. KIDNEY/URETER - LEFT: No visible renal or ureteral calcifications. PELVIS: No visible ureteral stones. Stable pelvic calcifications favoring phleboliths. BOWEL: Large amount of stool throughout the bowel. No abnormal dilation or evidence of obstruction. BONES: Levocurvature of the lumbar spine. OTHER: Negative. No abnormal gaseous collections. IMPRESSION: 1. No visible urinary tract calculi. Evaluation is limited by dense overlying bowel content. Electronically authenticated by: ABBE WEBSTER Date: 2021-12-18 15:43 Normal [facility] Encounters Encounter Date Encounter Type Care Provider Facility Start: 02-28-2023 End: 02-28-2023 ambulatory LONI COVARRUBIAS Facility:[facility] Start: 02-28-2023 End: 02-28-2023 Patient encounter procedure Catalino Connor Lita OD Work Phone: Ophthalmology Comment on above: Vitreous degeneratio n, bilateral (Primary Dx); Floaters in visual field, bilateral; Keratoconjunctivitis sicca of both eyes not specified as Sjogren's; SPK (superficial punctate keratitis), bilateral; Pseudophakia of both eyes; Retinal pigment epithelial mottling of macula; Drusen of right macula Start: 12-07-2022 End: 12-07-[address] LONI COVARRUBIAS Facility:[facility] Start: 09-10-2022 End: 09-11-[address] LONI COVARRUBIAS Facility:[facility] Start: 08-27-2022 End: 08-28-[address] LONI COVARRUBIAS Facility:[facility] Start: 08-04-2022 End: 08-05-[address] CATALINA CERVANTES Facility:[facility] Start: 05-12-2022 End: 05-12-[address] LONI COVARRUBIAS Facility:[facility] Start: 05-04-2022 End: 05-05-[address] LONI COVARRUBIAS Facility:[facility] Start: 03-29-2022 End: 03-30-[address] LONI COVARRUBIAS Facility:[facility] Start: 12-18-2021 End: 12-19-2021 ambulatory HIPOLITO FRANCO Facility:[facility] Plan of Treatment Date Care Activity Detail Author Start: 02-17-2025 OCT MACULA CIRRUS OU (BOTH EYES) OCT MACULA CIRRUS OU (BOTH EYES) OPHT Imaging Routine 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 Expected: 02/17/2025 [facility] Work Phone: Comment on above: Expected: 02/17/2025 Start: 11-07-2022 ADVANCE DIRECTIVE DISCUSSION ADVANCE DIRECTIVE DISCUSSION [facility] Start: 11-07-2022 DEPRESSION ASSESSMENT DEPRESSION ASS ESSMENT [facility] Start: 05-03-2022 COVID-19 VACCINE (4 - Booster for Pfizer series) COVID-19 VACCINE (4 - Booster for Pfizer series) [facility] Start: 02-11-2012 BONE DENSITY BONE DENSITY [facility] Start: 1997 Influenza vaccination LUNG CANCER [facility] Start: 1997 SHINGRIX VACCINE (1 of 2) SHINGRIX VACCINE (1 of 2) [facility] Start: 02-11-1992 DIABETES SCREEN DIABETES SCREEN [facility] Start: 1966 Urine microalbumin profile DTAP,TDAP,TD (1 - Tdap) [facility] Start: 1965 ANNUAL PCP TEAM JAVASCRIPT DEVELOPER ALONDRA DISEASE VISIT ANNUAL PCP TEAM CHRONIC DISEASE VISIT [facility] Start: 1965 HEPATITIS C SCREENING HEPATITIS C [facility] Start: 1965 SPIROMETRY SPIROMETRY [facility] Start: 1953 PNEUMOCOCCAL: 65+ (1 - PCV) PNEUMOCOCCAL: 65+ (1 - PCV) [facility] OCT MACULA CIRRUS OU (BOTH EYES) OCT MACULA CIRRUS OU (BOTH EYES) OPHT Imaging Routine 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 02/28/2023 5:04 PM EDT [facility] Work Phone: [facility] Payers Date Payer Category Payer Unknown [employer] O [id number] 2020-Present [phone] [address] [place] [address] O [id number] 1959 Unknown [id number] 1945 Unknown [id number] 1945 Unknown [id number] 1945 Unknown [id number] 1945 Unknown [id number] 1945 Unknown [id number] 1945 Unknown [id number] 1945 Unknown [id number] 1945 Unknown [id number] Social History Date Type Detail Facility Start: [facility]-12-[facility] Work Phone: History of tobacco use Cigarette Smoker C [facility] Work Phone: Start: 11-12-2020 Cigarettes smoked current (pack per day) - Reported 1 [facility] Start: 11-12-2020 Tobacco use and exposure Smokeless tobacco non-user [facility] Work Phone: Start: 02-28-2023 Alcohol intake Lifetime non-d art (finding) [facility] Start: 09-09-2020 History SDOH Alcohol Frequency 1 [facility] Start: 1945 Sex Assigned At Female C [facility] Medical Equipment Procedure Code Equipment Code Equipment Origin al Text Equipment Identifier Dates Lens Iol 0d +15 Derik Uv Abs - [id number] Start: 11-19-2020 Comment on above: Description: -0.26 Lens Iol 0d +15 Derik Uv Abs - [id number] Start: 12-03-2020 Comment on above: Description: -0.33 Progress note 02-28-2023 Note Date & Type Note Facility 02-28-2023 Note HNO ID: [id number] Author: Catalino London, OD Service: ? Author Type: NETWORK SUPPORT SPECIALIST Type: Progress Notes Filed: 02/28/2023 5:05 PM Note Text: ASSESSMENT/PLAN: 1. Vitreous degeneration, bilateral - ICD9: 379.21, ICD10: H43.813 (primary diagnosis) 2. Floaters in visual field, bilateral - ICD9: 379.24, ICD10: H43.393 Posterior vitreous detachment 's not acute Typical vit floaters OU Pt ed and reassured Monitor Floater and flashes changes and return to clinic if any 3. Keratoconjunctivitis sicca of both eyes not specified as Sjogren's - ICD9: 370.33, ICD10: H16.223 4. SPK (superficial punctate keratitis), bilateral - ICD9: 370.21, ICD10: H16.143 Increase consistent Artificial tears use Return to clinic if signs and/or symptoms changes 5. Pseudophakia of both eyes - ICD9: V43.1, ICD10: Z96.1 Pt happy sc and OTC readers 6. Retinal pigment epithelial mottling of macula - ICD9: 362.89, ICD10: H35.89 7. Drusen of right macula - ICD9: 362.57, ICD10: H35.361 Asymmetric drusen and RPE changes Update Mac oct today I have confirmed and edited as necessary the relevant ophthalmic history, ROS, and the exam findings as obtained by others. I have seen and examined this patient. I also have reviewed and agree with the assessment and plan as stated above and agree with all of its relevant components. Catalino London, OD February 28, 2023 1:19 PM [facility] History of Present illness Narrative 02-28-2023 Catalino Nikolas Lita, OD - 02/28/2023 1:19 PM EDT Note Date & Type Note Facility 02-28-2023 History of Presen t illness Narrative ASSESSMENT/PLAN: 1. Vitreous degeneration, bilateral - ICD9: 379.21, ICD10: H43.813 (primary diagnosis) 2. Floaters in visual field, bilateral - ICD9: 379.24, ICD10: H43.393 Posterior vitreous detachment 's not acute Typical vit floaters OU Pt ed and reassured Monitor Floater and flashes changes and return to clinic if any 3. Keratoconjunctivitis sicca of both eyes not specified as Sjogren's - ICD9: 370.33, ICD10: H16.223 4. SPK (superficial punctate keratitis), bilateral - ICD9: 370.21, ICD10: H16.143 Increase consistent Artificial tears use Return to clinic if signs and/or symptoms changes\ 5. Pseudophakia of both eyes - ICD9: V43.1, ICD10: Z96.1 Pt happy sc and OTC readers 6. Retinal pigment epithelial mottling of macula - ICD9: 362.89, ICD10: H35.89 7. Drusen of right macula - ICD9: 362.57, ICD10: H35.361 Asymmetric drusen and RPE changes Update Mac oct today I have confirmed and edited as necessary the relevant ophthalmic history, ROS, and the exam findings as obtained by others. I have seen and examined this patient. I also have reviewed and agree with the assessment and plan as stated above and agree with all of its relevant components. Catalino London, OD February 28, 2023 1:19 PM documented in this encounter [facility] Evaluation note Note Date & Type Note Facility Evaluation note Diagnosis Vitreous degeneration, bilateral- Primary Floaters in visual field, bilateral Keratoconjunctivitis sicca of both eyes not specified as Sjogren's Keratoconjunctivitis sicca, not specified as Sjogren's SPK (superficial punctate keratitis), bilateral Pseudophakia of both eyes Lens replaced by other means Retinal pigment epithelial mottling of macula Other retinal disorders 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 documented in this encounter [facility] Summary Purpose Family History No Family History Records FoundNo Family History Records Found Advance Directives No Advanced Directives Records FoundNo Advanced Directives Records Found Medications Administered Section Inactive Administered Medications - up to 3 most recent administrations Medication Order MAR Action Action Date Dose Rate Site fluorescein-benoxinate 0.25-0.4 % 1 Drop (FLURESS) 1 Drop, BOTH EYES, DIRECTED, Starting on Tue02/28/23 at 1230, Until Tue03/01/23 at 0029, Administer for applanation tonometry. In the event of a Fluress shortage, administer [place]-Fluor 1 drop into both eyes as directed for applanation tonometry, OPHT CLINIC MED ORDERS Given 02/28/2023 12:30 PM EDT 1 Drop PHENYLephrine 2.5 % 1 Drop (AK-DILATE, HENNA-SYNEPHRINE) 1 Drop, BOTH EYES, DIRECTED, Starting on Tue02/28/23 at 1230, Until Tue03/01/23 at 0029, Administer for dilation PROTECT FROM LIGHT, OPHT CLINIC MED ORDERS Given 02/28/2023 12:30 PM EDT 1 Drop tropicamide 1 % 1 Drop (MYDRIACYL) 1 Drop, BOTH EYES, DIRECTED, Starting on Tue02/28/23 at 1230, Until Tue03/01/23 at 0029, Administer for dilation, OPHT CLINIC MED ORDERS Given 02/28/2023 12:30 PM EDT 1 Drop Additional Source Comments INFORMATION SOURCE (unrecogn ized section and content) DATE CREATED AUTHOR 12/07/2022 [facility] DATE CREATED AUTHOR 'S ORGANBRADY ATION 03/01/2023 [facility] Source Comments (unrecognize d section and content) In the event this informatio n is protected by the Federal Confidentiality of Alcohol and Drug Abuse Patient Records regulations: The Federal rules restrict any use of the information to criminally investigate or prosecute any alcohol or drug abuse patient.[facility] Reason for Visit (unrecogniz ed section and content) Reason Comments Yearly Exam Floaters Both Eyes Care Teams (unrecognized sec tion and content) Can Line Operator Relationship Specialty Start Date End Date Loni Covarrubias MD PCP - General Family Medicine 08/31/10 FOR RECORDS PERTAINING TO PATIENTS WHO ARE OR HAVE BEEN ENROLLED IN A CHEMICAL DEPENDENCY/SUBSTANCEABUSE PROGRAM, SOME INFORMATION MAY BE OMITTED. This clinical summary was aggregated from multiple sources. Caution should be exercised in using it in the provision of clinical care. This summary normalizes information from multiple sources, and as a consequence, information in this document may materially change the coding, format and clinical context of patient data. In addition, data may be omitted in some cases. CLINICAL DECISIONS SHOULD BE BASED ON THE PRIMARY CLINICAL RECORDS. [facility] [employer] [facility]. provides no warranty or guarantee of the accuracy or completeness of information in this document.
[2023-11-08 13:13] VITALS: O2SAT 92
--- NOTE | 2023-11-08 13:23 | XR_ITS ---
The [address] [address] Patient Name: MIYA THOMAS MRN: [id number] date: 1945 Sex: F Assigned Patient Location: ER Current Patient Location: ER Accession/Order Number: [id number] Exam Date: 11/08/2023 13:30 Report Date: 11/08/2023 13:45 At the request of: HARSHAD HERNANDEZ Procedure: XR chest 1V EXAMINATION: XR chest 1V 11/08/2023 10:44 AM PST HISTORY: cough, SOB TECHNIQUE: Single frontal view of the chest acquired. COMPARISONS: Chest CT 08/11/2023 FINDINGS: Lines/tubes/other: None. Heart and mediastinum: The cardiac silhouette is within normal limits for size. Bones: No acute osseous abnormality. Lungs: The lungs are clear. There is no evidence of pneumonia or pulmonary edema. Pleura: There is no significant pleural effusion or pneumothorax. Other: None. XR/XR chest 1V IMPRESSION: No acute cardiopulmonary abnormality. Electronically authenticated by: AME CHURCH Date: 11/08/2023 13:45
--- NOTE | 2023-11-08 13:25 | ED.SOB1 ---
Documented by User: Tracey Howard 11/08/23 15:35 HPI - SOB/Dyspnea General Chief Complaint: Shortness of Breath/Dyspnea Stated Complaint: SHORTNESS OF BREATH/COUGH Time Seen by Provider: 11/08/23 13:23 Source: patient Mode of arrival: walk-in Limitations: no limitations History of Present Illness HPI Narrative: 78 year old female presents to the ED for cough, congestion, SOB, fatigue, body aches. Onset was 11/03/23. She is concerned she was exposed to Covid-19 on 10/31/23 at a family gathering. She has hx COPD. She does not wear oxygen at home. Her is also feeling ill. Denies fever, emesis, diarrhea. Denies pain. Related Data Previous Rx's Medication Instructions Recorded benzonatate 100 mg capsule 100 mg PO TID PRN cough #30 caps 11/08/23 prednisone 10 mg tablet See Rx Instructions .Route 11/08/23 .COMPLEX #30 tabs Allergies Allergy/AdvReac Type Severity Reaction Status Date / Time No Known Drug Allergies Allergy Verified 11/08/23 13:01 Review of Systems ROS Constitutional Reports: chills and fatigue; Denies: fever Ears, nose, mouth, and throat Denies: throat pain or neck pain Cardiovascular Denies: chest pain or edema Respiratory Reports: shortness of breath, cough and wheezing Gastrointestinal Denies: abdominal pain, nausea, vomiting or diarrhea Musculoskeletal Reports: back pain, joint pain and muscle cramps Integumentary/Breast Denies: rash Neurological Denies: headache or weakness in extremities PFSH PFSH Social History Smoking status: Heavy tobacco smoker Exam Constitutional Vital Signs, click to edit/add: Last Vital Signs Temp 98 F 11/08/23 12:56 Pulse 82 11/08/23 14:03 Resp 18 11/08/23 14:03 BP 128/61 11/08/23 14:03 Pulse Ox 95 11/08/23 14:03 O2 Del Method Nasal Cannula 11/08/23 13:36 O2 Flow Rate 2 11/08/23 13:36 Common normals: no apparent distress and oriented x3 General appearance: not in distress HENMT External ear: external ears normal Mouth: oral and palatal mucosa normal, lip normal and tongue normal Eye Common normals: conjunctivae normal and no scleral icterus Neck & C-Spine Common normals: supple Chest Common normals: inspection of chest normal Chest: symmetrical chest wall rise Respiratory Common normals: normal respiratory effort Effort & inspection: symmetric chest movement Auscultation: wheezes and diminished lung sounds Cardio Common normals: regular rate and regular rhythm GI Common normals: soft to palpation and non-tender Neuro Common normals: oriented x3 Sensorium/orientation: awake and alert Course Vital Signs Vital signs: Vital Signs Temperature 98 F 11/08/23 12:56 Pulse Rate 81 11/08/23 12:56 Respiratory Rate 24 11/08/23 12:56 Blood Pressure 124/51 11/08/23 12:56 Pulse Oximetry 94 L 11/08/23 12:56 Oxygen Delivery Method Room Air 11/08/23 12:56 Temperature 98 F 11/08/23 12:56 Pulse Rate 82 11/08/23 14:03 Respiratory Rate 18 11/08/23 14:03 Blood Pressure 128/61 11/08/23 14:03 Pulse Oximetry 95 11/08/23 14:03 Oxygen Delivery Method Nasal Cannula 11/08/23 13:36 Oxygen Delivery Flow Rate 2 11/08/23 13:36 MDM - SOB/Dyspnea MDM Narrative Medical decision making narrative: Laboratory studies were unremarkable. Covid-19 and influenza screens were negative. She was given IV solumedrol and a DuoNeb treatment here with improvement. Prescriptions were provided for prednisone and tessalon perles. Follow up with pcp for a recheck, further evaluation and treatment. Return precautions were discussed. Differential Diagnosis Differential diagnosis: Likely acute exacerbation of chronic obstructive airways disease, community acquired pneumonia and other (Covid-19, pneumonia) Medical Records Attestation: I reviewed the patient's medical records. Lab Data Attestation: I reviewed the patient's lab results. Labs: Lab Results 11/08/23 11/08/23 Range/Units 13:31 13:40 WBC 5.3 (4.0-11.0) 10^3/uL RBC 4.18 L (4.20-5.40) 10^6/uL Hgb 13.2 (12.0-16.0) g/dL Hct 39.1 (36.0-48.0) % MCV 93.5 (81.0-99.0) fL MCH 31.6 (26.7-34.0) pg MCHC 33.8 (29.9-35.2) g/dL RDW 12.5 (11.0-15.0) % Plt Count 232 (150-450) 10^3/uL MPV 10.0 (9.5-13.5) fL Neut % (Auto) 59.4 (43.0-75.0) % Lymph % (Auto) 28.4 (20.5-60.0) % [place] % (Auto) 9.7 (1.7-12.0) % Eos % (Auto) 1.7 (0.9-7.0) % Baso % (Auto) 0.6 (0.2-2.0) % Neut # (Auto) 3.1 (1.4-6.5) 10^3/uL Lymph # (Auto) 1.5 (1.2-3.8) 10^3/uL [place] # (Auto) 0.5 (0.3-0.8) 10^3/uL Eos # (Auto) 0.1 (0.0-0.7) 10^3/uL Baso # (Auto) 0.0 (0.0-0.1) 10^3/uL Abs Immat Gran (auto) 0.01 (0.00-0.03) 10^3/uL Imm/Tot Granulo (auto) 0.2 (0.0-0.5) % Sodium 142 (136-145) mmol/L Potassium 4.3 (3.5-5.1) mmol/L Chloride 106 (98-107) mmol/L Carbon Dioxide 27.7 (21.0-32.0) mmol/L Anion Gap 12.6 BUN 18.0 (7.0-18.0) mg/dL Creatinine 0.62 (0.55-1.02) mg/dL Est GFR ( Amer) >60 (>=60) Est GFR (Non-Af Amer) >60 (>=60) BUN/Creatinine Ratio 29.0 Glucose 110 H (74-106) mg/dL Calcium 9.6 (8.5-10.1) mg/dL SARS-CoV-2 (PCR) Negative (NEGATIVE) Influenza Type A Ag Negative Influenza Type B Ag Negative Imaging Data Chest x-ray: Attestation: I have reviewed the pertinent imaging results. Radiologist's impression: Procedure: XR chest 1V EXAMINATION: XR chest 1V 11/08/2023 10:44 AM PST HISTORY: cough, SOB TECHNIQUE: Single frontal view of the chest acquired. COMPARISONS: Chest CT 08/11/2023 FINDINGS: Lines/tubes/other: None. Heart and mediastinum: The cardiac silhouette is within normal limits for size. Bones: No acute osseous abnormality. Lungs: The lungs are clear. There is no evidence of pneumonia or pulmonary edema. Pleura: There is no significant pleural effusion or pneumothorax. Other: None. XR/XR chest 1V IMPRESSION: No acute cardiopulmonary abnormality. Electronically authenticated by: AME CHURCH Date: 11/08/2023 13:45 Discharge Plan Discharge Chief Complaint: Shortness of Breath/Dyspnea Clinical Impression: Upper respiratory infection, viral, Acute exacerbation of chronic obstructive pulmonary disease Patient Disposition: Home, Self-Care Time of Disposition Decision: 14:40 Condition: Good Mode of Transportation: Private Vehicle Prescriptions / Home Meds: New prednisone 10 mg tablet See Rx Instructions .ROUTE .COMPLEX Qty: 30 0RF Rx Instructions: Take 5 tablets on days 1-2, 4 tabs on days 3-4, 3 tabs on days 5-6, 2 tabs on days 7-8, 1 tab on days 9-10. benzonatate 100 mg capsule 100 mg PO TID PRN (Reason: cough) Qty: 30 0RF Instructions: Upper Respiratory Infection (ED), COPD (Chronic Obstructive Pulmonary Disease) (ED) Additional Instructions: Return to the ER if your condition worsens. Stand Alone Forms: Portal Instructions Referrals: Dileep Covarrubias MD [Primary Care Provider] - As soon as possible Discharge Date/Time: 11/08/23 15:07 Documented by User: Hilario Casey MD 11/08/23 20:00 HPI - SOB/Dyspnea General Chief Complaint: Shortness of Breath/Dyspnea Stated Complaint: SHORTNESS OF BREATH/COUGH Time Seen by Provider: 11/08/23 13:23 Related Data Previous Rx's Medication Instructions Recorded benzonatate 100 mg capsule 100 mg PO TID PRN cough #30 caps 11/08/23 prednisone 10 mg tablet See Rx Instructions .Route 11/08/23 .COMPLEX #30 tabs Allergies Allergy/AdvReac Type Severity Reaction Status Date / Time No Known Drug Allergies Allergy Verified 11/08/23 13:01 PFSH PFSH Social History Smoking status: Heavy tobacco smoker Exam Constitutional Vital Signs, click to edit/add: Last Vital Signs Temp 98 F 11/08/23 12:56 Pulse 82 11/08/23 14:03 Resp 18 11/08/23 14:03 BP 128/61 11/08/23 14:03 Pulse Ox 95 11/08/23 14:03 O2 Del Method Nasal Cannula 11/08/23 13:36 O2 Flow Rate 2 11/08/23 13:36 Course Vital Signs Vital signs: Vital Signs Temperature 98 F 11/08/23 12:56 Pulse Rate 81 11/08/23 12:56 Respiratory Rate 24 11/08/23 12:56 Blood Pressure 124/51 11/08/23 12:56 Pulse Oximetry 94 L 11/08/23 12:56 Oxygen Delivery Method Room Air 11/08/23 12:56 Temperature 98 F 11/08/23 12:56 Pulse Rate 82 11/08/23 14:03 Respiratory Rate 18 11/08/23 14:03 Blood Pressure 128/61 11/08/23 14:03 Pulse Oximetry 95 11/08/23 14:03 Oxygen Delivery Method Nasal Cannula 11/08/23 13:36 Oxygen Delivery Flow Rate 2 11/08/23 13:36 MDM - SOB/Dyspnea MDM Narrative Medical decision making narrative: Laboratory studies were unremarkable. Covid-19 and influenza screens were negative. She was given IV solumedrol and a DuoNeb treatment here with improvement. Prescriptions were provided for prednisone and tessalon perles. Follow up with pcp for a recheck, further evaluation and treatment. Return precautions were discussed. I, Dr Casey, have reviewed the above progress note and course of action in the ER; agree with the above. I have personally seen and evaluated this patient, gone over history and physical, and discussed disposition and treatment plan with the patient. Lab Data Labs: Lab Results 11/08/23 11/08/23 Range/Units 13:31 13:40 WBC 5.3 (4.0-11.0) 10^3/uL RBC 4.18 L (4.20-5.40) 10^6/uL Hgb 13.2 (12.0-16.0) g/dL Hct 39.1 (36.0-48.0) % MCV 93.5 (81.0-99.0) fL MCH 31.6 (26.7-34.0) pg MCHC 33.8 (29.9-35.2) g/dL RDW 12.5 (11.0-15.0) % Plt Count 232 (150-450) 10^3/uL MPV 10.0 (9.5-13.5) fL Neut % (Auto) 59.4 (43.0-75.0) % Lymph % (Auto) 28.4 (20.5-60.0) % [place] % (Auto) 9.7 (1.7-12.0) % Eos % (Auto) 1.7 (0.9-7.0) % Baso % (Auto) 0.6 (0.2-2.0) % Neut # (Auto) 3.1 (1.4-6.5) 10^3/uL Lymph # (Auto) 1.5 (1.2-3.8) 10^3/uL [place] # (Auto) 0.5 (0.3-0.8) 10^3/uL Eos # (Auto) 0.1 (0.0-0.7) 10^3/uL Baso # (Auto) 0.0 (0.0-0.1) 10^3/uL Abs Immat Gran (auto) 0.01 (0.00-0.03) 10^3/uL Imm/Tot Granulo (auto) 0.2 (0.0-0.5) % Sodium 142 (136-145) mmol/L Potassium 4.3 (3.5-5.1) mmol/L Chloride 106 (98-107) mmol/L Carbon Dioxide 27.7 (21.0-32.0) mmol/L Anion Gap 12.6 BUN 18.0 (7.0-18.0) mg/dL Creatinine 0.62 (0.55-1.02) mg/dL Est GFR ( Amer) >60 (>=60) Est GFR (Non-Af Amer) >60 (>=60) BUN/Creatinine Ratio 29.0 Glucose 110 H (74-106) mg/dL Calcium 9.6 (8.5-10.1) mg/dL SARS-CoV-2 (PCR) Negative (NEGATIVE) Influenza Type A Ag Negative Influenza Type B Ag Negative Discharge Plan Discharge Chief Complaint: Shortness of Breath/Dyspnea Clinical Impression: Upper respiratory infection, viral, Acute exacerbation of chronic obstructive pulmonary disease Patient Disposition: Home, Self-Care Time of Disposition Decision: 14:40 Condition: Good Mode of Transportation: Private Vehicle Prescriptions / Home Meds: New prednisone 10 mg tablet See Rx Instructions .ROUTE .COMPLEX Qty: 30 0RF Rx Instructions: Take 5 tablets on days 1-2, 4 tabs on days 3-4, 3 tabs on days 5-6, 2 tabs on days 7-8, 1 tab on days 9-10. benzonatate 100 mg capsule 100 mg PO TID PRN (Reason: cough) Qty: 30 0RF Instructions: Upper Respiratory Infection (ED), COPD (Chronic Obstructive Pulmonary Disease) (ED) Additional Instructions: Return to the ER if your condition worsens. Stand Alone Forms: Portal Instructions Referrals: Dileep Covarrubias MD [Primary Care Provider] - As soon as possible Discharge Date/Time: 11/08/23 15:07
[2023-11-08] MEDS: IPRATROPIUM/ALBUTEROL SULFATE 3 ML AMPUL.NEB IH (13:35)
[2023-11-08 13:36] VITALS: O2SAT 99
[2023-11-08] MEDS: METHYLPREDNISOLONE SOD SUCC PF 125 MG/2 ML VIAL IVP (13:49)
[2023-11-08] MEDS: 0.9 % SODIUM CHLORIDE 1,000 ML 500 ML IV (13:49)
[2023-11-08 13:52] LABS: Basophils Percent Auto 0.6 % (0.2-2.0); Eosinophils Absolute Auto 0.1 10^3/uL (0.0-0.7); Eosinophils Percent Auto 1.7 % (0.9-7.0); Hematocrit 39.1 % (36.0-48.0); Hemoglobin 13.2 g/dL (12.0-16.0); Immature Granulocytes Abs Auto 0.01 10^3/uL (0.00-0.03); Immature Granulocytes Pct Auto 0.2 % (0.0-0.5); Lymphocytes Absolute Auto 1.5 10^3/uL (1.2-3.8); Lymphocytes Percent Auto 28.4 % (20.5-60.0); Mean Corpuscular HGB Conc 33.8 g/dL (29.9-35.2); Mean Corpuscular Hemoglobin 31.6 pg (26.7-34.0); Mean Corpuscular Volume 93.5 fL (81.0-99.0); Monocytes Absolute Auto 0.5 10^3/uL (0.3-0.8); Monocytes Percent Auto 9.7 % (1.7-12.0); Neutrophils Absolute Auto 3.1 10^3/uL (1.4-6.5); Neutrophils Percent Auto 59.4 % (43.0-75.0); Platelet Count 232 10^3/uL (150-450); Red Blood Count 4.18 10^6/uL (4.20-5.40); Red Cell Distribution Width 12.5 % (11.0-15.0); White Blood Count 5.3 10^3/uL (4.0-11.0)
[2023-11-08 13:57] LABS: Influenza Virus A Antigen Negative; Influenza Virus B Antigen Negative; Internal Control Within Normal Limits; SARS-CoV-2 Ag NEGATIVE (NEGATIVE)
[2023-11-08 14:03] VITALS: BP 128/61; PULSE 82; RESP 18; O2SAT 95
[2023-11-08 14:32] LABS: Anion Gap 12.6; Calcium 9.6 mg/dL (8.5-10.1); Carbon Dioxide 27.7 mmol/L (21.0-32.0); Chloride 106 mmol/L (98-107); Estimated GFR (African America >60 (>=60); Estimated GFR (Non-African Ame >60 (>=60); Glucose 110 mg/dL (74-106); Potassium 4.3 mmol/L (3.5-5.1); Sodium 142 mmol/L (136-145)
[2023-11-10 12:00] LABS: SARS-CoV-2 NAA INCONCLUSIVE (NOT DETECTE)
== END 2023-11-08 15:07 | disposition home or self-care (01) ==
PROVIDERS: Nurse Practitioner Family; Emergency Provider Emergency Medicine; PCP Family Medicine
DX: J44.1 Chronic obstructive pulmonary disease with (acute) exacerbation (principal); J06.9 Acute upper respiratory infection, unspecified; R06.02 Shortness of breath; Z20.822 Contact with and (suspected) exposure to COVID-19; F17.200 Nicotine dependence, unspecified, uncomplicated
CPT/HCPCS: 36415; 71045; 80048; 85025; 87635; 87804; 87811; 94640; 96374; 99285; J2930

== ENCOUNTER 2024-02-21 15:58 | Outpatient (RCR) | payer MEDICARE, SELFPAY | END 2024-03-27 12:08 | disposition home or self-care (01) | LOC: PT 15:58 | PROVIDERS: PCP Family Medicine | DX: M67.911 Unspecified disorder of synovium and tendon, right shoulder (principal); M75.41 Impingement syndrome of right shoulder; M25.551 Pain in right hip | CPT/HCPCS: 97035; 97110; 97161; G0283 ==

== ENCOUNTER 2024-02-23 07:29 | Outpatient (RCR) | payer MEDICARE, SELFPAY ==
[2024-02-23 11:50] VITALS: BP 137/77; PULSE 80; TEMP 36.4; O2SAT 95
[2024-02-23 11:52] LABS: Estimated GFR (African America >60 (>=60); Estimated GFR (Non-African Ame >60 (>=60)
--- NOTE | 2024-02-23 11:57 | PC.NURSE ---
1150: Pt. to [facility] amb. for Prolia injection. Labs resulted and WNL. Seated in recliner. VSS. Denies questions or concerns.
[2024-02-23] MEDS: DENOSUMAB 60 MG/ML SYRINGE SUBQ (12:20)
--- NOTE | 2024-02-23 12:28 | PC.NURSE ---
1220: Medicated with Prolia to left upper arm. No bleeding to site. Pt. tolerated without c/o. 1225: Pt. d/c'd amb. to home.
== END 2024-03-06 23:59 | disposition home or self-care (01) ==
LOC: INF 07:29
PROVIDERS: PCP Family Medicine; Visit Provider Family Medicine
DX: M81.0 Age-related osteoporosis without current pathological fracture (principal)
CPT/HCPCS: 36415; 82310; 82565; 96372; J0897

== ENCOUNTER 2024-04-13 15:55 | Outpatient (OUT) | payer MEDICARE, SELFPAY ==
--- NOTE | 2024-04-13 | XR_ITS ---
The [address] [address] Patient Name: MIYA THOMAS MRN: [id number] date: 1945 Sex: F Assigned Patient Location: [facility] Current Patient Location: Accession/Order Number: [id number] Exam Date: 04/13/2024 16:03 Report Date: 04/16/2024 06:46 At the request of: LONI ROSALES Procedure: XR chest 2V EXAMINATION: XR chest 2V HISTORY: Acute bronchitis, unspecified organism COMPARISON: XR chest 06/21/2023 FINDINGS: LUNGS: No significant pulmonary parenchymal abnormalities. VASCULATURE: No increased pulmonary vasculature. PLEURA: No pneumothorax, effusion, or pleural thickening. CARDIAC: No cardiomegaly or cardiac silhouette abnormality. MEDIASTINUM: No visible mass or adenopathy. BONES: No fracture or visible bone lesion. OTHER: Negative. XR/XR chest 2V IMPRESSION: 1. No acute cardiopulmonary process. Electronically authenticated by: ABBE WEBSTER Date: 04/16/2024 06:46
--- OUTSIDE RECORDS SUMMARY | 2024-04-13 16:18 | XMS_ITS | CCD ---
Author Organization [facility] CliniSyva Care Team Providers Care Rock Cutter Name Role Phone BOBBY, DR IVEY Admitting Unavailable BOBBY, DR IVEY Attending Unavailable CHERELLEY, DR IVEY Consulting Unavailable CHERELLEY, DR IVEY Primary Care Unavailable CHERELLEY, DR IVYE Primary Care Unavailable HOY, DR IVEY Admitting Unavailable CHERELLEY, DR IVEY Attending Unavailable HOY, DR IVEY Consulting Unavailable PERLA, DR VERONICA Christian Consulting Unavailable HIPOLITO FRANCO Admitting Unavailable JOAN, HIPOLITO Attending Unavailable ELEANOR, DR ABBE Quiroz Consulting Unavailable BOBBY, DR IVEY Primary Care Unavailable HIPOLITO FRANCO Consulting Unavailable BOBBY, DR IVEY Admitting Unavailable HOY, DR IVEY Attending Unavailable HOY, DR IVEY Consulting Unavailable CHERELLEY, DR IVEY Primary Care Unavailable ZIEBER, DR ABBE Quiroz Consulting Unavailable BOBBY, DR IVEY Admitting Unavailable HOY, DR IVEY Attending Unavailable HOY, DR IVEY Consulting Unavailable CHERELLEY, DR IVEY Primary Care Unavailable HOY, DR IVEY Admitting Unavailable CHERELLEY, DR IVEY Attending Unavailable HOY, DR IVEY [...] Unavailable Loni Covarrubias MD Primary Care Provider [phone] Loni Covarrubias MD Primary Care Provider [phone] LONI COVARRUBIAS Primary Care Unavailable MARCY ESTRELLA Referring Unavailable LONI COVARRUBIAS Primary Care Unavailable MARCY ESTRELLA Attending Unavailable MARCY ESTRELLA Referring Unavailable LONI COVARRUBIAS Primary Care Unavailable LONI COVARRUBIAS Primary Care Unavailable MARCY ESTRELLA Attending Unavailable BOBBY LONI Wong Primary Care Unavailable CATALINO LONDON Attending Unavaila CATALINO Rahman Referring Unavaila ivan BOBBYLONI Primary Care Unavailable NIC COVARRUBIASLAS Judith Referring Unavailable MARCY ESTRELLA Attending Unavailable Allergies Allergy Classification Reported Allergen(s) Allergy Type Date of Onset Reaction(s) Facility (2 sources) black walnut pollen extract; Translations: [[id number] REDUCTASE INHIBITORS] Drug Allergy 02-28-2023 [facility] Repository (6 sources) HMG-CoA reductase inhibitor Drug Allergy 02-28-2023 Unknown [facility] Medications Current Medications Medication Drug Class(es) Dates Sig (Normalized) Sig (Original) [id number] 200 actuat albuterol 0.09 mg/actuat metered dose inhaler (6 sources) beta2-Adrenergic Agonist Start: 11-12-2020 take 2 puff(s) by inhalation every six hours as needed albuterol HFA (PROAIR HFA) 90 mcg/actuation inhaler 2 Puffs every 6 hours as needed. Take as directed 0 11/12/2020 Active Comment on above: 2 Puffs every 6 hour s as needed. Take as directed ascorbic acid 500 mg oral tablet (6 sources) Vitamin C Start: 11-07-1999 ascorbic acid, vitamin C, (VITAMIN C) 500 mg tablet aspirin 81 mg delayed release oral tablet (6 sources) Platelet Aggregation Inhibitor, Nonsteroidal Anti-inflammatory Drug Start: 11-07-1989 aspirin, enteric coated (ASPIRIN, ENTERIC COATED) 81 mg EC tablet biotin 2.5 mg oral capsule (6 sources) Start: 11-07-1989 Biotin 2,500 mcg cap CALCIUM CITRATE-VITAMIN D3 ORAL (6 sources) Start: 11-07-1989 CALCIUM CITRATE-VITAMIN D3 ORAL chondroitin sulfates 400 mg / glucosamine hydrochloride 500 mg oral capsule (6 sources) Start: 08-07-1990 glucosamine-chondr oitin 500-400 mg capsule denosumab (6 sources) RANK Ligand Inhibitor Start: 07-08-2020 denosumab (PROLIA SUBCUTANEOUS) docusate sodium 100 mg oral capsule (6 sources) Start: 11-07-1989 docusate sodium (COLACE) 100 mg capsule ezetimibe 10 mg oral tablet (6 sources) Dietary Cholesterol Absorption Inhibitor Start: 07-05-2020 take 1 tablet by mouth once daily ezetimibe (ZETIA) 10 mg tablet Take 10 mg by mouth once daily. 0 07/05/2020 Active Comment on above: Take 10 mg by mouth once daily. 30 actuat fluticasone furoate 0.1 mg/actuat / vilanterol 0.025 mg/actuat dry powder inhaler (6 sources) Corticosteroid, beta2-Adrenergic Agonist Start: 09-07-2020 BREO ELLIPTA 100-25 mcg/dose inhaler folic acid 0.4 mg / vitamin b12 1 mg sublingual tablet (2 sources) Vitamin B12 cyanocobalamin/f ol ic acid (VITAMIN C01-AMIPX ACID) 1,000-[address] by sublingual route. 0 Active gabapentin 100 mg oral capsule (6 sources) Anti-epileptic Agent Start: 11-12-2020 take 1 capsule by mouth once daily as needed gabapentin (NEURONTIN) 100 mg capsule Take 1 capsule by mouth once daily as needed (for sciatica) for up to 180 days. 0 11/12/2020 Active Comment on above: Take 1 capsule by [facility] once daily as needed (for sciatica) for up to 180 days. gemfibrozil 600 mg oral tablet (6 sources) Peroxisome Proliferator Receptor alpha Agonist Start: 09-03-2010 take 1 tablet by mouth once daily gemfibrozil (LOPID) 600 mg ORAL tablet Take one(1) tablet two(2) times daily. 0 09/03/2010 Active Comment on above: Take one(1) tablet t wo(2) times daily. mecobalamin 1 mg chewable tablet (6 sources) Start: 11-07-2014 mecobalamin, vitamin B12, 1,000 mcg chew meloxicam 7.5 mg oral tablet (2 sources) Nonsteroidal Anti-inflammatory Drug Start: 02-16-2024 End: 03-17-2024 take 1 tablet by mouth once daily meloxicam (MOBIC) 7.5 mg tablet Take 1 tablet by mouth once daily. 30 tablet 0 02/16/2024 03/17/2024 Active Comment on above: Take 1 tablet by [facility] once daily. multivit,iron,minera ls/lutein (CENTRUM SILVER ULTRA WOMEN'S ORAL) (6 sources) Start: 11-07-1999 multivit,iron,mine rals/lutein (CENTRUM SILVER ULTRA WOMEN'S ORAL) naproxen 250 mg oral tablet (3 sources) Nonsteroidal Anti-inflammatory Drug Start: 01-31-2024 End: 03-01-2024 take 1 tablet by mouth twice daily as needed naproxen (NAPROSYN) 250 mg tablet Indications: Pain in right hip Take 1-2 tablets by mouth two times a day as needed. for pain. Take with food. 60 tablet 0 01/31/2024 03/01/2024 Active Comment on above: Take 1-2 tablets by mouth two times a day as needed. for pain. Take with food. omega 0-tnz-zsg-fish oil (FISH OIL) 100-160-1,000 mg cap (6 sources) omega 0-vjq-unj-fish oil (FISH OIL) 100-160-1,000 mg cap Fish Oil 0 Active Comment on above: Fish Oil pantoprazole 40 mg delayed release oral tablet (6 sources) Proton Pump Inhibitor Start: 09-03-2010 take 1 tablet by mouth once daily pantoprazole (PROTONIX) 40 mg ORAL tablet Take one(1) tablet daily. 0 09/03/2010 Active Comment on above: Take one(1) tablet d aily. simethicone 125 mg oral capsule (6 sources) Start: 11-07-2014 Simethicone 125 mg cap vitamin e 180 mg oral capsule (6 sources) Start: 11-07-1989 vitamin E mixed 400 unit cap Completed/Discontinued Medications Medication Drug Class(es) Dates Sig (Normalized) Sig (Original) benoxinate hydrochloride 4 mg/ml / fluorescein sodium 2.5 mg/ml ophthalmic solution (2 sources) Diagnostic Dye Start: 03-05-2024 End: 03-06-2024 fluorescein-benoxi manuel 0.25-0.4 % 1 Drop (FLURESS) Start: 02-28-2023 End: 03-01-2023 fluorescein-benoxinate 0.25- 0.4 % 1 Drop (FLURESS) ketorolac tromethamine 5 mg/ml ophthalmic solution (2 sources) Nonsteroidal Anti-inflammatory Drug, Cyclooxygenase Inhibitor Start: 11-19-2020 End: 02-28-2023 keTORolac (ACULAR) 0.5 % ophthalmic solution USE DIRECTED BY PHYSICIAN, IN OPERATIVE EYE, BEGINNING ONE DAY AFTER SURGERY 1 Bottle 0 12/03/2020 02/28/2023 Discontinued (Course of therapy completed) Comment on above: USE DIRECTED BY Brandie LAKE, IN OPERATIVE EYE, BEGINNING ONE DAY AFTER SURGERY phenylephrine hydrochloride 25 mg/ml ophthalmic solution (2 sources) alpha-1 Adrenergic Agonist Start: 03-05-2024 End: 03-06-2024 PHENYLephrine 2.5 % 1 Drop (AK-DILATE, HENNA-SYNEPHRINE) Start: 02-28-2023 End: 03-01-2023 PHENYLephrine 2.5 % 1 Drop ( AK-DILATE, HENNA-SYNEPHRINE) prednisoLONE acetate 10 mg/ml ophthalmic suspension (2 sources) Corticosteroid Start: 11-19-2020 End: 02-28-2023 prednisoLONE acetate (PRED FORTE, ECONOPRED PLUS) 1 % ophthalmic suspension USE DIRECTED BY PHYSICIAN, IN OPERATIVE EYE, BEGINNING ONE DAY AFTER SURGERY 1 Bottle 0 12/03/2020 02/28/2023 Discontinued (Course of therapy completed) Comment on above: USE DIRECTED BY Brandie LAKE, IN OPERATIVE EYE, BEGINNING ONE DAY AFTER SURGERY tropicamide 10 mg/ml ophthalmic solution (2 sources) Anticholinergic Start: 03-05-2024 End: 03-06-2024 tropicamide 1 % 1 Drop (MYDRIACYL) Start: 02-28-2023 End: 03-01-2023 tropicamide 1 % 1 Drop (MYDR IACYL) Problems Active Problems Problem Classification Problem Date Documented Date Episodic/Chronic Cataract (2 sources) Bilateral pseudophakia; Translations: [Presence of intraocular lens] Chronic Chronic obstructive pulmonary disease and bronchiectasis (7 sources) Chronic obstructive pulmonary disease, unspecified; Translations: [Chronic obstructive lung disease] Onset: 2 11-12-2020 Chronic Disorders of lipid metabolism (8 sources) Pure hypercholesterolemia, unspecified; Translations: [Hyperlipidemia, unspecified] Onset: 2 11-12-2020 Chronic Esophageal disorders (6 sources) Gastroesophageal reflux disease; Translations: [Gastro-esophageal reflux disease without esophagitis] 11-12-2020 Chronic Inflammation; infection of eye (except that caused by tuberculosis or sexually transmitteddisease) (3 sources) Keratoconjunctivitis sicca; Translations: [Keratoconjunctivitis sicca, not specified as Sjogren's, bilateral] Chronic Joint disorders and dislocations; trauma-related (2 sources) Acetabular labrum tear; Translations: [Other articular cartilage disorders, unspecified hip] 01-31-2024 Chronic Nutritional deficiencies (1 source) Vitamin D deficiency, unspecified; Translations: [VITAMIN D DEFICIENCY UNSPECIFIED] Onset: 2 Chronic Osteoarthritis (1 source) Osteoarthritis of right hip joint; Translations: [Unilateral primary osteoarthritis, right hip] 01-31-2024 Chronic Osteoporosis (4 sources) Age-related osteoporosis without current pathological fracture; Translations: [AGE-REL OSTEOPOR W/O CURR PATH FX] Onset: 3 Chronic Other connective tissue disease (2 sources) Disorder of rotator cuff; Translations: [Unspecified disorder of synovium and tendon, right shoulder] 02-16-2024 Episodic Other connective tissue disease (1 source) Impingement syndrome of right shoulder region; Translations: [Impingement syndrome of right shoulder] 02-16-2024 Episodic Other eye disorders (2 sources) Bilateral vitreous degeneration of eyes; Translations: [Vitreous degeneration, bilateral] Chronic Other eye disorders (1 source) Bilateral vitreous floaters; Translations: [Other vitreous opacities, bilateral] Chronic Other lower respiratory disease (1 source) Other nonspecific abnormal finding of lung field; Translations: [OTH NONSPECIFIC ABN FIND LNG FIELD] Onset: 2 Episodic Other non-traumatic joint disorders (1 source) Pain in right hip joint; Translations: [Pain in right hip] 01-31-2024 Episodic Other non-traumatic joint disorders (1 source) Pain in right shoulder; Translations: [Acute pain of right shoulder] Onset: 4 Episodic Residual codes; unclassified (6 sources) Tobacco user; Translations: [Tobacco use] 11-12-2020 Episodic Residual codes; unclassified (1 source) Pain, unspecified; Translations: [Pain] Onset: 4 Episodic Retinal detachments; defects; vascular occlusion; and retinopathy (4 sources) Retinal pigment epithelial abnormality; Translations: [Other [...] Results Test Name Value Interpretation Reference Range Facility [facility] 03-27-2024 CNOV Office Visit (LOORRM ) NEVAEH THOMAS ([id number]) 1945 F Date Time Provider Department 03/27/24 1:15 PM MARCY ESTRELLA LOORRM During your visit today, we recorded the following information about you: Marcy Estrella DO 03/27/2024 8:58 PM Signed Nevaeh Thomas is a patient of Loni Covarrubias MD. CHIEF COMPLAINT: Nevaeh Thomas is a 79 year old female who presents today for follow up of right shoulder and right hip. HISTORY OF PRESENT ILLNESS: Notes improvement in pain in the right shoulder and right hip Denies any new injury Denies any radiating pain PHYSICAL EXAMINATION: Specific MSK Exam Full AROM of the right shoulder No pain with RTC testing IMAGING: No imaging was performed today. CLINICAL IMPRESSION / ASSESSMENT: (M67.911) Tendinopathy of right rotator cuff (primary encounter diagnosis) (M24.159) Degenerative tear of acetabular labrum PLAN: Improved at this time Activities as tolerated Follow-up as needed Procedures Marcy Estrella DO Allergies As of Date: 03/27/2024 Noted Allergy Reaction [id number] REDUCTASE INHIBIT*02/28/2023 16 - Unknown Date Reviewed: 03/27/2024 Reviewed by: Marcy Estrella DO - Fully Assessed Reason for Visit: Established Patient [175] Right Hip Pain [1554] Primary Visit Diagnosis: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] Other Visit Diagnosis: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] Prescriptions as of 03/27/2024 - cyanocobalamin/folic acid (VITAMIN X53-RZYZZ ACID) 1,000-[address] by sublingual route. - gabapentin (NEURONTIN) 100 mg capsule Take 1 capsule by mouth once daily as needed (for sciatica) for up to 180 days. - albuterol HFA (PROAIR HFA) 90 mcg/actuation inhaler 2 Puffs every 6 hours as needed. Take as directed - denosumab (PROLIA SUBCUTANEOUS) - ascorbic acid, vitamin C, (VITAMIN C) 500 mg tablet - aspirin, enteric coated (ASPIRIN, ENTERIC COATED) 81 mg EC tablet - Biotin 2,500 mcg cap - CALCIUM CITRATE-VITAMIN D3 ORAL - docusate sodium (COLACE) 100 mg capsule - ezetimibe (ZETIA) 10 mg tablet Take 10 mg by mouth once daily. - BREO ELLIPTA 100-25 mcg/dose inhaler - glucosamine-chondroiti n 500-400 mg capsule - mecobalamin, vitamin B12, 1,000 mcg chew - multivit,iron,minerals /lutein (CENTRUM SILVER ULTRA WOMEN'S ORAL) - Simethicone 125 mg cap - vitamin E mixed 400 unit cap - omega 5-hds-ggf-fish oil (FISH OIL) 100-160-1,000 mg cap Fish Oil - pantoprazole (PROTONIX) 40 mg ORAL tablet Take one(1) tablet daily. - gemfibrozil (LOPID) 600 mg ORAL tablet Take one(1) tablet two(2) times daily. Problem List As Of Date 03/27/2024 Noted Resolved COPD (chronic obstructive pulmonary disease) (H* GERD (gastroesophageal reflux disease) [K21.9] HLD (hyperlipidemia) [E78.5] Tobacco abuse [Z72.0] Encounter Status:Closed by MARCY ESTRELLA on 03/27/24 [facility] CNOVon 02-16-2024 CNOV Office Visit (LOORRM ) TERESSANEVAEH Cano ([id number]) 1945 F Date Time Provider Department 02/16/24 1:15 PM MARCY ESTRELLA LOORRM During your visit today, we recorded the following information about you: Marcy Estrella, DO 02/16/2024 1:40 PM Signed Nevaeh Thomas is a patient of Loni Covarrubias MD. CHIEF COMPLAINT: Nevaeh Thomas is a 79 year old female who presents today for new evaluation of right shoudler. HISTORY OF PRESENT ILLNESS: PAIN EVALUATION 02/16/2024 1304 Pain Level: 5 Pain Location: Shoulder-Right Description: Pressure Ulcer/Injury Duration Amount of Time: 3 Duration Units: Months Frequency: Continuous Intervention/Comfort measure: Medication Comments: Fiona This is a this is a 79-year-old female who presents with 7 to 8 months of anterior lateral right shoulder pain. Denies any trauma or fall preceding this pain. Denies any numbness or tingling. Has been taking naproxen intermittently with some relief. Has not done physical therapy in the past. Denies any instability or mechanical symptoms. PHYSICAL EXAMINATION: Cervical Exam: Cervical ROM is normal and there is no evidence of direct pain related to, or referred from the cervical spine examination during today's office visit. SHOULDER EXAM Flexion: normal at 150-180 degrees Abduction: normal at 125-150 degrees External rotation: 45 SC JOINT: no tenderness to palpation AC JOINT: no tenderness to palpation Scapula exam: normal examination of scapula with no dyskinetic motion noted Ray Test / Empty Can Test (supraspinatus): positive for pain Resisted lateral rotation test (infraspinatus): normal examination with no pain or weakness elicited Belly press test (subscapualris): normal examination with no pain or weakness elicited Rwight's test: no pain elicited Speed's test: pain elicited at the bicepital groove Pichardo test: pain elicited at the anterior shoulder Neer test: pain elicited at the anterior shoulder IMAGING: Final results and radiologist's interpretation, available in the [facility] health record. Images were reviewed with the patient/family members in the office today. My personal interpretation of the performed imaging is chronic degenerative changes. CLINICAL IMPRESSION / ASSESSMENT: (M67.911) Tendinopathy of right rotator cuff (primary encounter diagnosis) (M75.41) Impingement syndrome of right shoulder RECOMMENDATION / PLAN: Had extensive discussion with patient regarding her diagnosis of rotator cuff tendinopathy with underlying impingement. Likely has a biceps tendon involvement as well. We discussed subacromial injection and she would like to hold off at this time. Patient would like to start off with physical therapy. Additionally, did discuss possibly trying oral meloxicam. Patient would like to try this, as result, was told to discontinue the naproxen that she was prescribed a few weeks ago. Will plan to follow-up as needed in the future to discuss possible subacromial injection at that time. Procedures Verbal health education was given to patient. Patient verbalizes understanding and agrees with the treatment plan as detailed above. Marcy Ogden MD Emergency Medicine Primary Care Sports Medicine Fellow, PGY-5 I personally saw in evaluating the patient today. I personally obtain the leong and critical portions of the history and physical exam. I reviewed the resident/fellow's documentation and discuss the patient with the resident/fellow. I agree with the resident/fellow's medical decision making as documented. Marcy Estrella DO Referring Provider: LONI COVARRUBIAS [[id number]] Allergies As of Date: 02/16/2024 Noted Allergy Reaction [id number] REDUCTASE INHIBIT*02/28/2023 16 - Unknown Date Reviewed: 02/16/2024 Reviewed by: Marcy Estrella DO - Fully Assessed Reason for Visit: New [[id number]] Pain (Shoulder Pain) [1343] Primary Visit Diagnosis: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] Other Visit Diagnosis:Impingement syndrome of right shoulder [M75.41] Order(s):CONSULT TO PHYSICAL THERAPY [4908] Order #: [id number]: 1 FUTURE meloxicam (MOBIC) 7.5 mg tabletTake 1 tablet by mouth once daily.Disp: 30 tabletRfl: 0 Prescriptions as of 02/16/2024 - meloxicam (MOBIC) 7.5 mg tablet Take 1 tablet by mouth once daily. - naproxen (NAPROSYN) 250 mg tablet Take 1-2 tablets by mouth two times a day as needed. for pain. Take with food. - gabapentin (NEURONTIN) 100 mg capsule Take 1 capsule by mouth once daily as needed (for sciatica) for up to 180 days. - albuterol HFA (PROAIR HFA) 90 mcg/actuation inhaler 2 Puffs every 6 hours as needed. Take as directed - denosumab (PROLIA SUBCUTANEOUS) - ascorbic acid, vitamin C, (VITAMIN C) 500 mg tablet - aspirin, enteric coated (ASPIRIN, ENTERIC COATED) 81 mg EC tablet - Biotin 2,500 mcg cap - CALCIUM CITRATE-VITAMIN D3 OR (more content not included)... Normal [facility] XR SHLDR >/=3V AP/LAURA AP/OTH R RTon 02-16-2024 XR SHLDR >/=3V AP/LAURA AP/OTHR RT * * *Final Report* * * DATE OF EXAM: Feb 16 2024 1:03PM LZX [id number] - XR SHLDR >/=3V AP/LAURA AP/OTHR RT / PROCEDURE REASON: Acute pain of right shoulder * * * * Physician Interpretation * * * * HISTORY: Acute pain of right shoulder . rt shoulder pain with limited rom for few months no injury TECHNIQUE: XR SHLDR >/=3V AP/LAURA AP/OTHR RT COMPARISON: None RESULT: Small osteophytes at the acromioclavicular joint. Joint spaces and alignment normal. No evidence of a fracture. Thoracic kyphosis and degenerative changes. Sclerotic calcifications in the aortic arch.. No other significant abnormality. - IMPRESSION: MINIMAL DEGENERATIVE CHANGES RIGHT SHOULDER Vice President Of Brand Management: TAYA Transcribe Date/Time: Feb 16 2024 2:48P Dictated by : MEHNAZ LOBATO MD This examination was interpreted and the report reviewed and electronically signed by: MEHNAZ LOBATO MD on Feb 16 2024 2:49PM EST [id number] Normal [facility] CNOVon 01-31-2024 CNOV Office Visit (LOORRM ) WILLIAMNEVAEH ([id number]) 1945 F Date Time Provider Department 01/31/24 2:15 PM MARCY ESTRELLA LOORRM During your visit today, we recorded the following information about you: Marcy Estrella, DO 01/31/2024 2:59 PM Signed Nevaeh Thomas is a patient of Loni Covarrubias MD. CHIEF COMPLAINT: Nevaeh Thomas is a 78 year old female who presents today for new evaluation of R hip. HISTORY OF PRESENT ILLNESS: PAIN EVALUATION 01/24/2024 1621 01/31/2024 1404 Pain Level: -- 2 Pain Location: Hip-Right Hip-Right Description: Aching;Dull;Sore;Stiff ness;Tingling Aching Duration Amount of Time: -- 3 Duration Units: Hours Months Frequency: Intermittent Continuous Intervention/Comfort measure: Medication Medication Comments: -- Naprosyn Radicular symptoms: No Duration: since October Location of pain: anterior and wrap around posterior Was there an injury that started this? No Does anything make it worse?: Yes, prolonged walking and stairs Does anything make it better?: Yes, naprosyn improves Any numbness or tingling? No PREVIOUS TREATMENTS: NSAIDs: Yes, naprosyn BID with some improvement Injections: No Surgeries: No Physical Therapy: No REVIEW OF SYMPTOMS: Endocrine: Uncontrolled diabetics (A1c>8) No PHYSICAL EXAMINATION: SPINE AND HIP EXAM: Muscle Strength: Hip flexion (L2/L3):4/5 Hip extension (L4/L5): 5/5 Hip adduction (L1/L2): 5/5 Hip abduction (L5/S1/S2): 4/5 ROM: decreased range of motion in internal rotation of the right hip and decreased range of motion in external rotation of the right hip Neurologic: Sensation: sensation to light touch is grossly normal bilaterally Palpation: No tenderness to palpation noted on examination of the lumbar spine, sacroiliac joint, ischial tuberosity, ischiofemoral space or greater trochanter. Special Tests: THANH Test: positive on the right FADIR Test::positive on the right Scour Test: positive on the right IMAGING: Final results and radiologist's interpretation, available in the [facility] health record. Images were reviewed with the patient/family members in the office today. My personal interpretation of the performed imaging is mild chronic degenerative changes. 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 Has glute weakness on exam as well but no tenderness laterally at greater troch. Aquatic therapy is recommended at this time to improve glute strength. When patient tolerating PT goals, may begin transition to land PT and appropriate HEP. Will continue with the use of NSAIDs, naprosyn sent to pharmacy. If use greater than 3-6 months, will recommend follow up for appropriate laboratory monitoring if indicated. If patient has had testing recently with PCP, we will review these with patient when appropriate. Plan for follow up in 8 weeks to assess benefit. Could consider diagnostic/therapeutic injection if no improvement. Verbal health education was given to patient. Patient verbalizes understanding and agrees with the treatment plan as detailed above. Emily Scales MD Primary Care Sports Medicine Fellow, PGY4 I personally saw in evaluating the patient today. I personally obtain the leong and critical portions of the history and physical exam. I reviewed the resident/fellow's documentation and discuss the patient with the resident/fellow. I agree with the resident/fellow's medical decision making as documented. Marcy Estrella DO Allergies As of Date: 01/31/2024 Noted Allergy Reaction [id number] REDUCTASE INHIBIT*02/28/2023 16 - Unknown Date Reviewed: 01/31/2024 Reviewed by: Marcy Estrella, - Fully Assessed Reason for Visit: New [[id number]] Right Hip Pain [1554] Primary Visit Diagnosis: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] Other Visit Diagnoses:Pain in right hip [M25.551] Primary osteoarthritis of right hip [M16.11] Order(s):CONSULT TO PHYSICAL THERAPY [9032] Order #: [id number]: 1 FUTURE naproxen (NAPROSYN) 250 mg tabletTake 1-2 tablets by mouth two times a day as needed. for pain. Take with food.Disp: 60 tabletRfl: 0 Prescriptions as of 01/31/2024 - naproxen (NAPROSYN) 250 mg tablet Take 1-2 tablets by mouth two times a day as needed. for pain. Take with food. - gabapentin (NEURONTIN) 100 mg capsule Take 1 capsule by mouth once daily as needed (for sciatica) for up to 180 days. - albuterol HFA (PROAIR HFA) 90 mcg/actuation inhaler 2 Puffs every 6 hours as needed. Take as directed - denosumab (PROLIA SUBCUTANEOUS) - ascorbic acid, vitamin C, (VITAMIN C) 500 mg tablet - aspirin, enteric c (more content not included)... Normal [facility] XR HIP 3V PELV+ AP/LAT RTon 01-31-2024 XR HIP 3V PELV+ AP/LAT RT * * *Final Report* * * DATE OF EXAM: Jan 31 2024 2:02PM MARKELX 5352 - XR HIP 3V PELV+ AP/LAT RT / PROCEDURE REASON: Pain * * * * Physician Interpretation * * * * HISTORY: Posterior pain that radiates to the groin area. Pain . TECHNIQUE: XR HIP 3V PELV+ AP/LAT RT Laterality: RIGHT Number of different views (projections): 3 COMPARISON: None RESULT: Bones are osteoporotic, otherwise intact with no fracture. Right hip is maintained with normal shape of the femoral head. Bony pelvis grossly intact, poorly visualized due to overlying bowel contents. Surgical clips in the lower abdomen. IMPRESSION: Right hip grossly unremarkable. Vice President Of Brand Management: TAYA Transcribe Date/Time: Jan 31 2024 2:13P Dictated by : PORFIRIO MURPHY MD This examination was interpreted and the report reviewed and electronically signed by: PORFIRIO MURPHY MD on Jan 31 2024 2:14PM EST [id number] Normal [facility] CALCIUMon 12-07-2022 Calcium [Mass/Vol] 9.4 mg/dL Normal 8.5-10.1 [facility] Comment on above: Performed By: #### LAZARUS LOBO #### [facility] [address] [address] [address] Lori Bautista CREATININEon 12-07-2022 Creatinine [Mass/Vol] 0.64 mg/dL Normal 0.55-1.02 [facility] Comment on above: Performed By: #### LAZARUS LOBO #### [facility] [address] [address] [address] Lori Bautista EGFR-AF STATELESS >60 Normal >=60 [facility] Comment on above: Performed By: #### LAZARUS LOBO #### [facility] [address] [address] [address] Lori Bautista EGFR-NON AF STATELESS >60 Normal >=60 [facility] Comment on above: Performed By: #### C RONI, CA #### [facility] [address] [address] [address] LUNG CANCER SCREENINGon [...] VERONICA DUNCAN Date: 2022-09-10 14:57 Normal [facility] INSULINon 08-28-2022 Insulin 4.3 uIU/mL Normal 2.6-24.9 [facility] Comment on above: Performed By: #### I NSULIN #### [facility] [address] [address] [address] Lori Bautista CBC AUTO DIFFon 08-27-2022 BASO # 0.1 103/ul Normal 0.0-0.1 [facility] Comment on above: Performed By: #### C BC #### [facility] [address] [place] [address] Dr. Lori Bautista Basophils/100 WBC (Bld) 0.6 % Normal 0.2-2.0 [facility] Comment on above: Performed By: #### C BC #### [facility] [address] [place] [address] Dr. Lori Bautista EO # 0.1 103/ul Normal 0.0-0.7 [facility] Comment on above: Performed By: #### C BC #### [facility] [address] [place] [address] Dr. Lori Bautista Eosinophils/100 WBC (Bld) 0.6 % Critically low 0.9-7.0 [facility] Comment on above: Performed By: #### C BC #### [facility] [address] [place] [address] Dr. Lori Bautista Erythrocyte distribution width (RBC) [Ratio] 13.2 % Normal 11.0-15.0 [facility] Comment on above: Performed By: #### C BC #### [facility] [address] [place] [address] Dr. Lori Bautista Hematocrit (Bld) [Volume fraction] 41.3 % Normal 36.0-48.0 [facility] Comment on above: Performed By: #### C BC #### [facility] [address] [place] [address] Dr. Lori Bautista Hemoglobin (Bld) [Mass/Vol] 13.5 g/dL Normal 12.0-16.0 [facility] Comment on above: Performed By: #### C BC #### [facility] [address] [place] [address] Dr. Lori Bautista IG # 0.02 10e3/ul Normal 0.00-0.03 [facility] Comment on above: Performed By: #### C BC #### [facility] [address] [place] [address] Dr. Lori Bautista IG % 0.3 % Normal 0.0-0.5 [facility] Comment on above: Performed By: #### C BC #### [facility] [address] [place] [address] Dr. Lori Bautista LYMPH # 2.0 103/ul Normal 1.2-3.8 [facility] Comment on above: Performed By: #### C BC #### [facility] [address] [place] [address] Dr. Lori Bautista Lymphocytes/100 WBC (Bld) 25.6 % Normal 20.5-60.0 [facility] Comment on above: Performed By: #### C BC #### [facility] [address] [place] [address] Dr. Lori Bautista MANUAL DIFF REQ NO Normal [facility] Comment on above: Performed By: #### C BC #### [facility] [address] [place] [address] Dr. Lori Bautista MCH (RBC) [Entitic mass] 31.1 pg Normal 26.7-34.0 [facility] Comment on above: Performed By: #### C BC #### [facility] [address] [place] [address] Dr. Lori Bautista MCHC (RBC) [Mass/Vol] 32.7 g/dL Normal 29.9-35.2 [facility] Comment on above: Performed By: #### C BC #### [facility] [address] [place] [address] Dr. Lori Bautista MCV (RBC) [Entitic vol] 95.2 fL Normal 81.0-99.0 [facility] Comment on above: Performed By: #### C BC #### [facility] [address] [place] [address] Dr. Lori Bautista MONO # 0.7 103/ul Normal 0.3-0.8 [facility] Comment on above: Performed By: #### C BC #### [facility] [address] [address] [address] Lori Bautista Monocytes/100 WBC (Bld) 8.4 % Normal 1.7-12.0 [facility] Comment on above: Performed By: #### C BC #### [facility] [address] [address] [address] Lori Bautista NEUT # 5.0 103/ul Normal 1.4-6.5 [facility] Comment on above: Performed By: #### C BC #### [facility] [address] [place] [address] Dr. Lori Bautista Neutrophils/100 WBC (Bld) 64.5 % Normal 43.0-75.0 [facility] Comment on above: Performed By: #### C BC #### [facility] [address] [place] [address] Dr. Lori Bautista Platelet mean volume (Bld) [Entitic vol] 9.9 fL Normal 9.5-13.5 [facility] Comment on above: Performed By: #### C BC #### [facility] [address] [place] [address] Dr. Lori Bautista PLT 310 103/ul Normal 150-450 [facility] Comment on above: Performed By: #### C BC #### [facility] [address] [place] [address] Dr. Lori Bautista RBC 4.34 106/ul Normal 4.20-5.40 [facility] Comment on above: Performed By: #### C BC #### [facility] [address] [place] [address] Dr. Lori Bautista WBC 7.8 103/ul Normal 4.0-11.0 [facility] Comment on above: Performed By: #### C BC #### [facility] [address] [place] [address] Dr. Lori Bautista FREE THYROXINE INDEX T7on FTI 2.26 Normal 1.30-4.50 [facility] Comment on above: Performed By: #### L IPID, TSH, T7, CMP ####[facility] [address] [place], [place] [address]AdClarence Bautista T3U 31.0 % Normal 30.0-39.0 [facility] Comment on above: Performed By: #### L IPID, TSH, T7, CMP ####[facility] [address] [place], [place] [address]SeClarence Bautista T4 [Mass/Vol] 7.30 ug/dL Normal 4.80-13.90 [facility] Comment on above: Performed By: #### L IPID, TSH, T7, CMP ####[facility] [address] [place], [place] [address]WlClarence Bautista GLYCOHEMOGLOBIN A1Con 2021 ADA RECOMMENDATION SEE BELOW Normal [facility] Comment on above: Result Comment: ADA RECOMMENDED LIMIT 4.0 - 6.0 ADA THERAPEUTIC TARGET < 7.0 ACTION SUGGESTED > 7.0 Performed By: #### A 1C #### [facility] [address] [address] [address] Lori Bautista Glucose [Mass/Vol] 117 mg/dL Normal [facility] Comment on above: Performed By: #### A 1C #### [facility] [address] [address] [address] Lori Bautista HbA1c (Bld) [Mass fraction] 5.7 % Normal 4.5-6.2 [facility] Comment on above: Performed By: #### A 1C #### [facility] [address] [address] [address] Lori Bautista IRONon 08-27-2022 Iron [Mass/Vol] 105.0 ug/dL Normal 50.0-170.0 [facility] Comment on above: Performed By: #### I VANDA KYLE ####[facility] [address] [id number]. Lori Bautista LIPID PROFILEon 08-27-2022 CHOL-HDL RATIO NORM SEE BELOW Normal [facility] Comment on above: Result Comment: 3.3 - 4.4 LOW RISK 4.4 - 7.1 AVERAGE RISK 7.1 - 11.0 MODERATE RISK >11.0 HIGH RISK Performed By: #### L IPID, TSH, T7, CMP ####[facility] [address] [id number]. Lori Bautista Cholesterol [Mass/Vol] 186 mg/dL Normal <=200 [facility] Comment on above: Performed By: #### L IPID, TSH, T7, CMP ####[facility] [address] [id number]. Lori Bautista Cholesterol in HDL [Mass/Vol] 55 mg/dL Normal 40-60 [facility] Comment on above: Performed By: #### L IPID, TSH, T7, CMP ####[facility] [address] [id number]. Lori Bautista Cholesterol in LDL [Mass/Vol] 116.4 mg/dL Normal [facility] Comment on above: Performed By: #### L IPID, TSH, T7, CMP ####[facility] [address] [address]Dr. Lori Bautista Cholesterol.total/Ch olesterol in HDL [Mass ratio] 3.4 {ratio} Normal [facility] Comment on above: Performed By: #### L IPID, TSH, T7, CMP ####[facility] [address] [id number]. Lori Bautista HDL NORMAL > or = 60 mg/dl - LO W CARDIOVASCULAR RISK <40 mg/dl - HIGH CARDIOVASCULAR RISK Normal [facility] Comment on above: Performed By: #### L IPID, TSH, T7, CMP ####[facility] [address] [phone]. Lori Bautista LDL CALC NORMAL SEE BELOW Normal [facility] Comment on above: Result Comment: <100 mg/dl OPTIMAL 100 - 129 mg/dl NEAR OR ABOVE OPTIMAL 130 - 159 mg/dl BORDERLINE HIGH 160 - 189 mg/dl HIGH >190 mg/dl VERY HIGH Performed By: #### L IPID, TSH, T7, CMP ####[facility] [address] [phone]. Lori Bautista Triglyceride [Mass/Vol] 73 mg/dL Normal <=150 [facility] Comment on above: Performed By: #### L IPID, TSH, T7, CMP ####[facility] [address] [address]Dr. Lori Bautista VLDL CALC 14.6 mg/dL Normal [facility] Comment on above: Performed By: #### L IPID, TSH, T7, CMP ####[facility] [address] [address]Dr. Lori Bautista PROF 14(COMP METB)on 022 Albumin [Mass/Vol] 3.9 g/dL Normal 3.4-5.0 [facility] Comment on above: Performed By: #### L IPID, TSH, T7, CMP ####[facility] [address] [place], [place] [address]Dr. Lori Bautista Albumin/Globulin [Mass ratio] 1.2 {ratio} Normal [facility] Comment on above: Performed By: #### L IPID, TSH, T7, CMP ####[facility] [address] [place], [place] [address]Dr. Lori Bautista ALP [Catalytic activity/Vol] 68 U/L Normal 46-116 [facility] Comment on above: Performed By: #### L IPID, TSH, T7, CMP ####[facility] [address] [place], [place] [address]Dr. Lori Bautista ALT [Catalytic activity/Vol] 20 U/L Normal 14-59 [facility] Comment on above: Performed By: #### L IPID, TSH, T7, CMP ####[facility] [address] [place], [place] [address]Dr. Lori Bautista Anion gap [Moles/Vol] 8.2 mmol/L Normal [facility] Comment on above: Performed By: #### L IPID, TSH, T7, CMP ####[facility] [address] [address]Dr. Lori Bautista AST [Catalytic activity/Vol] 22 U/L Normal 15-37 [facility] Comment on above: Performed By: #### L IPID, TSH, T7, CMP ####[facility] [address] [address]Dr. Lori Bautista Bilirubin [Mass/Vol] 0.3 mg/dL Normal 0.2-1.0 [facility] Comment on above: Performed By: #### L IPID, TSH, T7, CMP ####[facility] [address] [address]Dr. Lori Bautista Calcium [Mass/Vol] 9.2 mg/dL Normal 8.5-10.1 [facility] Comment on above: Performed By: #### L IPID, TSH, T7, CMP ####[facility] [address] [place], [place] [address]Dr. Lori Bautista Chloride [Moles/Vol] 105 mmol/L Normal 98-107 [facility] Comment on above: Performed By: #### L IPID, TSH, T7, CMP ####[facility] [address] [place], [place] [address]Dr. Lori Bautista CO2 [Moles/Vol] 30.0 mmol/L Normal 21.0-32.0 [facility] Comment on above: Performed By: #### L IPID, TSH, T7, CMP ####[facility] [address] [place], [place] [address]Dr. Lori Bautista Creatinine [Mass/Vol] 0.67 mg/dL Normal 0.55-1.02 [facility] Comment on above: Performed By: #### L IPID, TSH, T7, CMP ####[facility] [address] [place], [place] [address]Dr. Lori Bautista EGFR-AF STATELESS >60 Normal >=60 [facility] Comment on above: Performed By: #### L IPID, TSH, T7, CMP ####[facility] [address] [place], [place] [address]Dr. Lori Bautista EGFR-NON AF STATELESS >60 Normal >=60 [facility] Comment on above: Performed By: #### L IPID, TSH, T7, CMP ####[facility] [address] [place], [place] [address]Dr. Lori Bautista Globulin (S) [Mass/Vol] 3.3 g/dL Normal [facility] Comment on above: Performed By: #### L IPID, TSH, T7, CMP ####[facility] [address] [address]Dr. Lori Bautista Glucose [Mass/Vol] 84 mg/dL Normal 74-106 [facility] Comment on above: Performed By: #### L IPID, TSH, T7, CMP ####[facility] [address] [place], [place] [address]Dr. Lori Bautista Potassium [Moles/Vol] 4.2 mmol/L Normal 3.5-5.1 [facility] Comment on above: Performed By: #### L IPID, TSH, T7, CMP ####[facility] [address] [place], [place] [address]Dr. Lori Bautista Protein [Mass/Vol] 7.2 g/dL Normal 6.4-8.2 [facility] Comment on above: Performed By: #### L IPID, TSH, T7, CMP ####[facility] [address] [place], [place] [address]Dr. Lori Bautista Sodium [Moles/Vol] 139 mmol/L Normal 136-145 [facility] Comment on above: Performed By: #### L IPID, TSH, T7, CMP ####[facility] [address] [place], [place] [address]Dr. Lori Bautista Urea nitrogen [Mass/Vol] 18.0 mg/dL Normal 7.0-18.0 [facility] Comment on above: Performed By: #### L IPID, TSH, T7, CMP ####[facility] [address] [place], [place] [address]Dr. Lori Bautista Urea nitrogen/Creatinine [Mass ratio] 26.9 mg/mg Normal [facility] Comment on above: Performed By: #### L IPID, TSH, T7, CMP ####[facility] [address] [place], [place] [address]Dr. Lori Bautista TSHon 08-27-2022 TSH 1.615 uIU/mL Normal 0.358-3.[address] [facility] Comment on above: Performed By: #### L IPID, TSH, T7, CMP ####[facility] [address] [phone]. Lori Bautista VITAMIN D 25 OHon 08-27-2022 VIT D 25-OH 73.1 ng/mL Normal [facility] Comment on above: Performed By: #### I SAROJ VITAD ####[facility] [address] [id number]. Lori Bautista VIT D RANGES SEE BELOW Normal [facility] Comment on above: Result Comment: <20 ng/mL Vit D deficient 20 - <30 ng/mL Vit D insufficient 30 - 100 ng/mL Vit D sufficient >100 ng/mL Potential Toxicity Performed By: #### I SAROJ VITAD ####[facility] [address] [id number]. Lori Bautista MG MAMM SCREEN 3D APPLE CADon 08-04-2022 MG MAMM SCREEN 3D APPLE CAD Patient: NEVAEH THOMAS Exam Date: 08/04/2022 : 1945 Gender:F Ordering : DR CATALINA CERVANTES Admission #: [id number] Family : Order #: [id number] CLICK HERE TO VIEW EXAM RADIOLOGY REPORT [...] lung cancer at age 84. LOCATION: [facility] BREAST COMPOSITION: Heterogeneously dense,which may obscure [...] MD on 08/04/2022 at 13:25 Normal [facility] Covid-19 PCR (CVDTB)on SARS-CoV-2 (COVID-19) RNA PABLO+probe Ql (Unsp spec) Not detected Normal NOT DETECTED [facility] Comment on above: Result Comment: This test is not yet approved or cleared by the [place] FDA. When there are no FDA-approved or cleared tests available, and other criteria are met, FDA can make tests available under an emergency access mechanism called an Emergency Use Authorization (EUA). The EUA for this test is supported by the Dell of Health and Human Service's (HHS's) declaration [...] consistent with SARS-CoV-2. Performed By: #### C [facility] #### [facility] [address] [place] [address] Dr. Lori Bautista SYMPTOMATIC COVID-19 ANTIGEN on 05-12-2022 EUA Statement SEE BELOW Normal [facility] Comment on above: Result Comment: This [...] authorization is revoked sooner. Performed By: #### Sherry GUERRERO #### [facility] [address] [address] [address] Lori Bautista SARS-CoV-2 (COVID-19) RNA PABLO+probe Ql (Unsp spec) Negative Normal NEGATIVE [facility] Comment on above: Performed By: #### Sherry GUERRERO #### [facility] [address] [address] [address] Lori Bautista CALCIUMon 05-04-2022 Calcium [Mass/Vol] 9.6 mg/dL Normal 8.5-10.1 [facility] Comment on above: Performed By: #### LAZARUS LOBO ####[facility] [address] [id number]. Lori Bautista CREATININEon 05-04-2022 Creatinine [Mass/Vol] 0.68 mg/dL Normal 0.55-1.02 [facility] Comment on above: Performed By: #### LAZARUS LOBO ####[facility] [address] [address]Dr. Lori Bautista EGFR-AF STATELESS Normal >=60 [facility] Comment on above: Performed By: #### LAZARUS LOBO ####[facility] [address] [id number]. Lori Bautista EGFR-NON AF STATELESS Normal >=60 [facility] Comment on above: Performed By: #### LAZARUS LOBO ####[facility] [address] [phone]. 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); Degenerative tear of acetabular labrum Start: 03-05-2024 End: 03-05-2024 ambulatory [facility] Facility:[facility] Start: 03-05-2024 End: 03-05-2024 Patient encounter procedure Catalino London OD Work Phone: Ophthalmology Comment on above: Keratoconjunctivitis sicca of both eyes not specified as Sjogren's (Primary Dx); Retinal pigment epithelial mottling of macula; Drusen of right macula; Vitreous degeneration, bilateral; Pseudophakia of both eyes Start: 02-16-2024 End: 02-16-2024 ambulatory Judy Lopez RT(R) Radiology Comment on above: Radiology XR Start: 02-16-2024 End: 02-16-2024 Patient encounter procedure Judy Lopez RT(R) SUMAN ARLIN Comment on above: Tendinopathy of righ t rotator cuff (Primary Dx); Impingement syndrome of right shoulder Start: 01-31-2024 End: 01-31-2024 ambulatory LONI COVARRUBIAS Facility:[facility] Start: 01-31-2024 End: 01-31-2024 Patient encounter procedure Marcy Estrella DO Work Phone: Orthopaedics Comment on above: Degenerative tear of acetabular labrum (Primary Dx); Pain in right hip; Primary osteoarthritis of right hip Start: 02-28-2023 End: 02-28-2023 Patient encounter procedure [...] Facility:[facility] Start: 05-12-2022 End: 05-12-[address] OLNI COVARRUBIAS Facility:[facility] Start: 05-04-2022 End: 05-05-[address] LONI COVARRUBIAS Facility:[facility] Start: 03-29-2022 End: 03-30-[address] LONI COVARRUBIAS Facility:[facility] Start: 12-18-2021 End: 12-19-2021 ambulatory HIPOLITO FRANCO Facility:[facility] Plan of Treatment Date Care Activity Detail Author Start: 08-01-2026 Urine microalbumin profile DTaP,Tdap,Td Vaccine (3 - Td or Tdap) [facility] Start: 02-23-2026 OCT MACULA CIRRUS OU (BOTH EYES) OCT MACULA CIRRUS OU (BOTH EYES) OPHT Imaging Routine 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 Expected: 02/23/2026 [facility] Work Phone: Comment on above: Expected: 02/23/2026 Start: 03-06-2025 End: 03-06-2025 Patient encounter procedure 03/06/2025 1:30 PM EDT Office Visit [facility] Ophthalmology [address] [place], [place] [id number] Catalino London, OD [address] [place] [address] Annual Eye exam Ophthalmology Comment on above: Annual Eye exam Start: 02-17-2025 OCT MACULA CIRRUS OU (BOTH EYES) OCT MACULA CIRRUS OU (BOTH EYES) [facility] Imaging Routine 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 Expected: 02/17/2025 [facility] Work Phone: Comment on above: Expected: 02/17/2025 Start: 07-08-2024 Influenza vaccination Influenz a Vaccine (Season Ended) [facility] Start: 05-27-2024 Diabetes Screening Diabetes Screenin g [facility] Start: 03-27-2024 End: 03-27-2024 Patient encounter procedure 03/27/2024 1:15 PM EDT Office Visit Orthopaedics [address] [place] [address] Marcy Estrella, DO [address] [place] [address] 8 week right hip pain Orthopaedics Comment on above: 8 week right hip dave n Start: 11-07-2023 Advance Directive Discussion Advance Directive Discussion [facility] Start: 11-07-2023 Behavioral Health Screening Behavioral Health Screening [facility] Start: 11-07-2023 Depression Assessment Depression Ass essment [facility] Start: 07-08-2023 Covid-19 Vaccine (4 - 2023-24 season) Covid-19 Vaccine ( season) [facility] Start: 07-08-2023 Influenza vaccination Influenza Vacc ine (#1) [facility] Start: 11-07-2022 ADVANCE DIRECTIVE DISCUSSION ADVANCE DIRECTIVE DISCUSSION [facility] Start: 11-07-2022 DEPRESSION ASSESSMENT DEPRESSION ASS ESSMENT [facility] Start: 05-03-2022 COVID-19 VACCINE (4 - Booster for Pfizer series) COVID-19 VACCINE (4 - Booster for Pfizer series) [facility] Start: 02-11-2012 BONE DENSITY BONE DENSITY [facility] Start: 02-11-2012 Screening for osteoporosis Bone Density Screening [facility] Start: 2007 RSV Vaccine (1 - 1-dose 60+ series) RSV Vaccine (1 - 1-dose 60+ series) [facility] Start: 1997 Influenza vaccination LUNG CANCER [facility] Start: 1997 Screening for malignant neoplasm of lung Lung Cancer Screening [facility] Start: 1997 SHINGRIX VACCINE (1 of 2) SHINGRIX VACCINE (1 of 2) [facility] Start: 02-11-1992 DIABETES SCREEN DIABETES SCREEN [facility] Start: 1966 Urine microalbumin profile DTAP,TDAP,TD (1 - Tdap) [facility] Start: 1965 ANNUAL PCP TEAM CHRONIC DISEASE VISIT ANNUAL PCP TEAM CHRONIC DISEASE VISIT [facility] Start: 1965 HEPATITIS C SCREENING HEPATITIS C [facility] Start: 1965 Hepatitis C screening Hepatitis C [facility] Start: 1965 SPIROMETRY SPIROMETRY [facility] Start: 1953 PNEUMOCOCCAL: 65+ (1 - PCV) PNEUMOCOCCAL: 65+ (1 - PCV) [facility] OCT MACULA CIRRUS OU (BOTH EYES) OCT MACULA CIRRUS OU (BOTH EYES) [facility] Imaging Routine 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 1959 Unknown [id number] 1947 Unknown [id number] 2.16.84 [id number] 1947 Unknown [id number] 2.16.84 [id number] 1947 Unknown [id number] 2.16.84 [id number] 1947 Unknown [id number] 2.16.84 [id number] 1947 Unknown [id number] 2.16.84 [id number] 1947 Unknown [id number] 2.16.84 [id number] 1947 Unknown [id number] 2.16.84 [id number] 1947 Unknown [id number] 2.16.84 [id number] Social History Date Type Detail Facility Start: 11-12-2020 Tobacco smoking status NHIS Smokes tobacco daily [facility] Work Phone: History of tobacco use Cigarette Smoker [facility] Work Phone: Start: 11-12-2020 End: 01-31-2024 Cigarettes smoked current (pack per day) - Reported 1 [facility] Start: 11-12-2020 Tobacco use and exposure Smokeless tobacco non-user [facility] Work Phone: Start: 02-28-2023 End: 03-05-2024 Alcohol intake Lifetime non-drinker (finding) [facility] Start: 09-09-2020 History SDOH Alcohol Frequency 1 [facility] Start: 1945 Sex Assigned At Female [facility] Start: 09-09-2020 End: 01-31-2024 Alcohol Use Disorder Identification Test - Consumption [AUDIT-C] [facility] How often to you hav e a drink containing alcohol? Never [facility] Average Number of Drinks Not on file [facility] Start: 09-08-2020 Gender identity Identifies as female gender (finding) [facility] Start: 09-08-2020 Sexual orientation Heterosexual (finding) [facility] Medical Equipment Procedure Code Equipment Code Equipment Origin al Text Equipment Identifier Dates Lens Iol 0d +15 Derik Uv Abs - [id number] Start: 11-19-2020 Comment on above: Description: -0.26 Lens Iol 0d +15 Derik Uv Abs - [id number] Start: 12-03-2020 Comment on above: Description: -0.33 Clinical Notes 02-28-2023 to 03-27-2024 Marcy Estrella DO - 03/27/2024 1:06 PM Catalino Owens, OD - 03/05/2024 5:03 PM Judy Sevilla RT(R) - 02/16/2024 1:02 PM Marcy Leonardo DO - 02/16/2024 12:59 PM EDT Note Date & Type Note Facility 03-27-2024 Note HNO ID: [id number] Author: MARCY ESTRELLA DO Service: ? Author Type: Physician Type: Progress Notes Filed: 03/27/2024 20:58 Note Text: Nevaeh Thomas is a patient of Loni Covarrubias MD. CHIEF COMPLAINT: Nevaeh Thomas is a 79 year old female who presents today for follow up of right shoulder and right hip. HISTORY OF PRESENT ILLNESS: Notes improvement in pain in the right shoulder and right hip Denies any new injury Denies any radiating pain PHYSICAL EXAMINATION: Specific MSK Exam Full AROM of the right shoulder No pain with RTC testing IMAGING: No imaging was performed today. CLINICAL IMPRESSION / ASSESSMENT: (M67.911) Tendinopathy of right rotator cuff (primary encounter diagnosis) (M24.159) Degenerative tear of acetabular labrum PLAN: Improved at this time Activities as tolerated Follow-up as needed Procedures Marcy Estrella DO [facility] 03-27-2024 History of Present illness Narrative Nevaeh Thomas is a patient of Loni Covarrubias MD. CHIEF COMPLAINT: Nevaeh Thomas is a 79 year old female who presents today for follow up of right shoulder and right hip. HISTORY OF PRESENT ILLNESS: Notes improvement in pain in the right shoulder and right hip Denies any new injury Denies any radiating pain PHYSICAL EXAMINATION: Specific MSK Exam Full AROM of the right shoulder No pain with RTC testing IMAGING: No imaging was performed today. 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 Author Type: TOOL MAKER BENCH Type: Progress Notes Filed: 03/05/2024 17:08 Note Text: Documentation transcribed from Paper [facility] from [facility] Downtime ASSESSMENT/PLAN: 1. Keratoconjunctivitis sicca of both eyes not specified as Sjogren's - ICD9: 370.33, ICD10: H16.223 (primary diagnosis) Frequent Artificial Tears - Systane Return to clinic if changes 2. Retinal pigment epithelial mottling of macula - ICD9: 362.89, ICD10: H35.89 3. Drusen of right macula - ICD9: 362.57, ICD10: H35.361 Stable asymmetric RPE changes OD > Left eye Update Mac OCT next full 4. Vitreous degeneration, bilateral - ICD9: 379.21, ICD10: H43.813 Not acute Monitor 5. Pseudophakia of both eyes - ICD9: V43.1, ICD10: Z96.1 Monitor March 05, 2024 5:03 PM [facility] 03-05-2024 History of Present illness Narrative Documentation transcribed from Paper notes from [facility] Downtime ASSESSMENT/PLAN: 1. Keratoconjunctivitis sicca of both eyes not specified as Sjogren's - ICD9: 370.33, ICD10: H16.223 (primary diagnosis) Frequent Artificial Tears - Systane Return to clinic if changes 2. Retinal pigment epithelial mottling of macula - ICD9: 362.89, ICD10: H35.89 3. Drusen of right macula - ICD9: 362.57, ICD10: H35.361 Stable asymmetric RPE changes OD > Left eye Update Mac OCT next full 4. Vitreous degeneration, bilateral - ICD9: 379.21, ICD10: H43.813 Not acute Monitor 5. Pseudophakia of both eyes - ICD9: V43.1, ICD10: Z96.1 Monitor March 05, 2024 5:03 PM documented in this encounter [facility] 02-16-2024 Note HNO ID: [id number] Author: JUDY LOPEZ RT(R) Service: ? Author Type: Technologist Type: Progress Notes Filed: 02/16/2024 13:02 Note Text: Radiology Service Progress Note PATIENT NAME: Nevaeh Thomas DATE OF SERVICE: February 16, 2024 TIME: 1:02 PM PATIENT IDENTITY VERIFICATION COMPLETED USING TWO (2) IDENTIFIERS: Name and Date of confirmed by patient verbally. FALL SCREENING: Has the patient had 2 falls in the last year or 1 fall with injury or currently using an Ambulatory Assistive Device (Walker, Cane, Wheelchair, Crutches, etc.)? No PATIENT GENDER DATA: Female. status: : No status: N/A PATIENT RELEVANT IMPLANT DATA REVIEWED: Not Applicable PATIENT PRESENTS WITH AN IMPLANTABLE OR ATTACHED SEARCH ENGINE MARKETING MANAGER: No RADIOLOGY DEPARTMENT: General X-ray: Exam(s) Completed: Upper Extremity X-Ray(s): Shoulder, AP / TRUE AP / AXILLARY right PERIPHERAL IV DATA: Not applicable SIGNED BY: RT Anthony(R) February 16, 2024 1:02 PM [facility] 02-16-2024 Note HNO ID: [id number] Author: MARCY ESTRELLA, DO Service: ? Author Type: Physician Type: Progress Notes Filed: 02/16/2024 13:40 Note Text: Nevaeh Thomas is a patient of Loni Covarrubias MD. CHIEF COMPLAINT: Nevaeh Thomas is a 79 year old female who presents today for new evaluation of right shoudler. HISTORY OF PRESENT ILLNESS: PAIN EVALUATION 02/16/2024 1304 Pain Level: 5 Pain Location: Shoulder-Right Description: Pressure Ulcer/Injury Duration Amount of Time: 3 Duration Units: Months Frequency: Continuous Intervention/Comfort measure: Medication Comments: Fiona Bailey is a this is a 79-year-old female who presents with 7 to 8 months of anterior lateral right shoulder pain. Denies any trauma or fall preceding this pain. Denies any numbness or tingling. Has been taking naproxen intermittently with some relief. Has not done physical therapy in the past. Denies any instability or mechanical symptoms. PHYSICAL EXAMINATION: Cervical Exam: Cervical ROM is normal and there is no evidence of direct pain related to, or referred from the cervical spine examination during today's office visit. SHOULDER EXAM Flexion: normal at 150-180 degrees Abduction: normal at 125-150 degrees External rotation: 45 SC JOINT: no tenderness to palpation AC JOINT: no tenderness to palpation Scapula exam: normal examination of scapula with no dyskinetic motion noted Ray Test / Empty Can Test (supraspinatus): positive for pain Resisted lateral rotation test (infraspinatus): normal examination with no pain or weakness elicited Belly press test (subscapualris): normal examination with no pain or weakness elicited Wright's test: no pain elicited Speed's test: pain elicited at the bicepital groove Pichardo test: pain elicited at the anterior shoulder Neer test: pain elicited at the anterior shoulder IMAGING: Final results and radiologist's interpretation, available in the [facility] health record. Images were reviewed with the patient/family members in the office today. My personal interpretation of the performed imaging is chronic degenerative changes. CLINICAL IMPRESSION / ASSESSMENT: (M67.911) Tendinopathy of right rotator cuff (primary encounter diagnosis) (M75.41) Impingement syndrome of right shoulder RECOMMENDATION / PLAN: Had extensive discussion with patient regarding her diagnosis of rotator cuff tendinopathy with underlying impingement. Likely has a biceps tendon involvement as well. We discussed subacromial injection and she would like to hold off at this time. Patient would like to start off with physical therapy. Additionally, did discuss possibly trying oral meloxicam. Patient would like to try this, as result, was told to discontinue the naproxen that she was prescribed a few weeks ago. Will plan to follow-up as needed in the future to discuss possible subacromial injection at that time. Procedures Verbal health education was given to patient. Patient verbalizes understanding and agrees with the treatment plan as detailed above. Marcy Ogden MD Emergency Medicine Primary Care Sports Medicine Fellow, PGY-5 I personally saw in evaluating the patient today. I personally obtain the leong and critical portions of the history and physical exam. I reviewed the resident/fellow's documentation and discuss the patient with the resident/fellow. I agree with the resident/fellow's medical decision making as documented. Marcy Estrella DO [facility] 02-16-2024 History of Present illness Narrative Radiology Service Progress Note PATIENT NAME: Nevaeh Thomas DATE OF SERVICE: February 16, 2024 TIME: 1:02 PM PATIENT IDENTITY VERIFICATION COMPLETED USING TWO (2) IDENTIFIERS: Name and Date of confirmed by patient verbally. FALL SCREENING: Has the patient had 2 falls in the last year or 1 fall with injury or currently using an Ambulatory Assistive Device (Walker, Cane, Wheelchair, Crutches, etc.)? No PATIENT GENDER DATA: Female. status: : No status: N/A PATIENT RELEVANT IMPLANT DATA REVIEWED: Not Applicable PATIENT PRESENTS WITH AN IMPLANTABLE OR ATTACHED SEARCH ENGINE MARKETING MANAGER: No RADIOLOGY DEPARTMENT: General X-ray: Exam(s) Completed: Upper Extremity X-Ray(s): Shoulder, AP / TRUE AP / AXILLARY right PERIPHERAL IV DATA: Not applicable SIGNED BY: RT Anthony(R) February 16, 2024 1:02 PM documented in this encounter [facility] 02-16-2024 History of Present illness Narrative Nevaeh Thomas is a patient of Loni Covarrubias MD. CHIEF COMPLAINT: Nevaeh Thomas is a 79 year old female who presents today for new evaluation of right shoudler. HISTORY OF PRESENT ILLNESS: PAIN EVALUATION 02/16/2024 1304 Pain Level: 5 Pain Location: Shoulder-Right Description: Pressure Ulcer/Injury Duration Amount of Time: 3 Duration Units: Months Frequency: Continuous Intervention/Comfort measure: Medication Comments: Fiona Bailey is a this is a 79-year-old female who presents with 7 to 8 months of anterior lateral right shoulder pain. Denies any trauma or fall preceding this pain. Denies any numbness or tingling. Has been taking naproxen intermittently with some relief. Has not done physical therapy in the past. Denies any instability or mechanical symptoms. PHYSICAL EXAMINATION: Cervical Exam: Cervical ROM is normal and there is no evidence of direct pain related to, or referred from the cervical spine examination during today's office visit. SHOULDER EXAM Flexion: normal at 150-180 degrees Abduction: normal at 125-150 degrees External rotation: 45 SC JOINT: no tenderness to palpation AC JOINT: no tenderness to palpation Scapula exam: normal examination of scapula with no dyskinetic motion noted Ray Test / Empty Can Test (supraspinatus): positive for pain Resisted lateral rotation test (infraspinatus): normal examination with no pain or weakness elicited Belly press test (subscapualris): normal examination with no pain or weakness elicited Wright's test: no pain elicited Speed's test: pain elicited at the bicepital groove Pichardo test: pain elicited at the anterior shoulder Neer test: pain elicited at the anterior shoulder IMAGING: Final results and radiologist's interpretation, available in the [facility] health record. Images were reviewed with the patient/family members in the office today. My personal interpretation of the performed imaging is chronic degenerative changes. CLINICAL IMPRESSION / ASSESSMENT: (M67.911) Tendinopathy of right rotator cuff (primary encounter diagnosis) (M75.41) Impingement syndrome of right shoulder RECOMMENDATION / PLAN: Had extensive discussion with patient regarding her diagnosis of rotator cuff tendinopathy with underlying impingement. Likely has a biceps tendon involvement as well. We discussed subacromial injection and she would like to hold off at this time. Patient would like to start off with physical therapy. Additionally, did discuss possibly trying oral meloxicam. Patient would like to try this, as result, was told to discontinue the naproxen that she was prescribed a few weeks ago. Will plan to follow-up as needed in the future to discuss possible subacromial injection at that time. Procedures Verbal health education was given to patient. Patient verbalizes understanding and agrees with the treatment plan as detailed above. Marcy Ogden MD Emergency Medicine Primary Care Sports Medicine Fellow, PGY-5 I personally saw in evaluating the patient today. I personally obtain the leong and critical portions of the history and physical exam. I reviewed the resident/fellow's documentation and discuss the patient with the resident/fellow. I agree with the resident/fellow's medical decision making as documented. Marcy Estrella DO documented in this encounter [facility] 01-31-2024 Note HNO ID: [id number] Author: MARCY ESTRELLA DO Service: ? Author Type: Physician Type: Progress Notes Filed: 01/31/2024 14:59 Note Text: Nevaeh Thomas is a patient of Loni Covarrubias MD. CHIEF COMPLAINT: Nevaeh Thomas is a 78 year old female who presents today for new evaluation of R hip. HISTORY OF PRESENT ILLNESS: PAIN EVALUATION 01/24/2024 1621 01/31/2024 1404 Pain Level: -- 2 Pain Location: Hip-Right Hip-Right Description: Aching;Dull;Sore;Stiffness;Tingling Aching Duration Amount of Time: -- 3 Duration Units: Hours Months Frequency: Intermittent Continuous Intervention/Comfort measure: Medication Medication Comments: -- Naprosyn Radicular symptoms: No Duration: since October Location of pain: anterior and wrap around posterior Was there an injury that started this? No Does anything make it worse?: Yes, prolonged walking and stairs Does anything make it better?: Yes, naprosyn improves Any numbness or tingling? No PREVIOUS TREATMENTS: NSAIDs: Yes, naprosyn BID with some improvement Injections: No Surgeries: No Physical Therapy: No REVIEW OF SYMPTOMS: Endocrine: Uncontrolled diabetics (A1c>8) No PHYSICAL EXAMINATION: SPINE AND HIP EXAM: Muscle Strength: Hip flexion (L2/L3):4/5 Hip extension (L4/L5): 5/5 Hip adduction (L1/L2): 5/5 Hip abduction (L5/S1/S2): 4/5 ROM: decreased range of motion in internal rotation of the right hip and decreased range of motion in external rotation of the right hip Neurologic: Sensation: sensation to light touch is grossly normal bilaterally Palpation: No tenderness to palpation noted on examination of the lumbar spine, sacroiliac joint, ischial tuberosity, ischiofemoral space or greater trochanter. Special Tests: THANH Test: positive on the right FADIR Test::positive on the right Scour Test: positive on the right IMAGING: Final results and radiologist's interpretation, available in the [facility] health record. Images were reviewed with the patient/family members in the office today. My personal interpretation of the performed imaging is mild chronic degenerative changes. 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 Has glute weakness on exam as well but no tenderness laterally at greater troch. Aquatic therapy is recommended at this time to improve glute strength. When patient tolerating PT goals, may begin transition to land PT and appropriate HEP. Will continue with the use of NSAIDs, naprosyn sent to pharmacy. If use greater than 3-6 months, will recommend follow up for appropriate laboratory monitoring if indicated. If patient has had testing recently with PCP, we will review these with patient when appropriate. Plan for follow up in 8 weeks to assess benefit. Could consider diagnostic/therapeutic injection if no improvement. Verbal health education was given to patient. Patient verbalizes understanding and agrees with the treatment plan as detailed above. Emily Scales MD Primary Care Sports Medicine Fellow, PGY4 I personally saw in evaluating the patient today. I personally obtain the leong and critical portions of the history and physical exam. I reviewed the resident/fellow's documentation and discuss the patient with the resident/fellow. I agree with the resident/fellow's medical decision making as documented. Marcy Estrella DO [facility] 01-31-2024 Note HNO ID: [id number] Author: MARTHA CROOKS RT(R) Service: ? Author Type: Technologist Type: Progress Notes Filed: 01/31/2024 14:02 Note Text: Radiology Service Progress Note PATIENT NAME: Nevaeh Thomas DATE OF SERVICE: January 31, 2024 TIME: 2:01 PM PATIENT IDENTITY VERIFICATION COMPLETED USING TWO (2) IDENTIFIERS: Name and Date of confirmed by patient verbally. FALL SCREENING: Has the patient had 2 falls in the last year or 1 fall with injury or currently using an Ambulatory Assistive Device (Walker, Cane, Wheelchair, Crutches, etc.)? No PATIENT GENDER DATA: Female. status: : No status: NO. PATIENT RELEVANT IMPLANT DATA REVIEWED: Not Applicable PATIENT PRESENTS WITH AN IMPLANTABLE OR ATTACHED SEARCH ENGINE MARKETING MANAGER: No RADIOLOGY DEPARTMENT: General X-ray: Exam(s) Completed: Pelvis X-Ray: Pelvis with Hip Right PERIPHERAL IV DATA: Not applicable SIGNED BY: RT Elisa(R) January 31, 2024 2:01 PM [facility] 01-31-2024 History of Present illness Narrative Images from the original note were not included. Nevaeh Thomas is a patient of Loni Covarrubias MD. CHIEF COMPLAINT: Nevaeh Thomas is a 78 year old female who presents today for new evaluation of R hip. HISTORY OF PRESENT ILLNESS: PAIN EVALUATION 01/24/2024 1621 01/31/2024 1404 Pain Level: -- 2 Pain Location: Hip-Right Hip-Right Description: Aching;Dull;Sore;Stiffness;Tingling Aching Duration Amount of Time: -- 3 Duration Units: Hours Months Frequency: Intermittent Continuous Intervention/Comfort measure: Medication Medication Comments: -- Naprosyn Radicular symptoms: No Duration: since October Location of pain: anterior and wrap around posterior Was there an injury that started this? No Does anything make it worse?: Yes, prolonged walking and stairs Does anything make it better?: Yes, naprosyn improves Any numbness or tingling? No PREVIOUS TREATMENTS: NSAIDs: Yes, naprosyn BID with some improvement Injections: No Surgeries: No Physical Therapy: No REVIEW OF SYMPTOMS: Endocrine: Uncontrolled diabetics (A1c>8) No PHYSICAL EXAMINATION: SPINE AND HIP EXAM: Muscle Strength: Hip flexion (L2/L3):4/5 Hip extension (L4/L5): 5/5 Hip adduction (L1/L2): 5/5 Hip abduction (L5/S1/S2): 4/5 ROM: decreased range of motion in internal rotation of the right hip and decreased range of motion in external rotation of the right hip Neurologic: Sensation: sensation to light touch is grossly normal bilaterally Palpation: No tenderness to palpation noted on examination of the lumbar spine, sacroiliac joint, ischial tuberosity, ischiofemoral space or greater trochanter. Special Tests: THANH Test: positive on the right FADIR Test::positive on the right Scour Test: positive on the right IMAGING: Final results and radiologist's interpretation, available in the [facility] health record. Images were reviewed with the patient/family members in the office today. My personal interpretation of the performed imaging is mild chronic degenerative changes. 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 Has glute weakness on exam as well but no tenderness laterally at greater troch. Aquatic therapy is recommended at this time to improve glute strength. When patient tolerating PT goals, may begin transition to land PT and appropriate HEP. Will continue with the use of NSAIDs, naprosyn sent to pharmacy. If use greater than 3-6 months, will recommend follow up for appropriate laboratory monitoring if indicated. If patient has had testing recently with PCP, we will review these with patient when appropriate. Plan for follow up in 8 weeks to assess benefit. Could consider diagnostic/therapeutic injection if no improvement. Verbal health education was given to patient. Patient verbalizes understanding and agrees with the treatment plan as detailed above. Emily Scales MD Primary Care Sports Medicine Fellow, PGY4 I personally saw in evaluating the patient today. I personally obtain the leong and critical portions of the history and physical exam. I reviewed the resident/fellow's documentation and discuss the patient with the resident/fellow. I agree with the resident/fellow's medical decision making as documented. Marcy Estrella DO documented in this encounter [facility] 02-28-2023 History of Present illness Narrative ASSESSMENT/PLAN: 1. Vitreous degeneration, bilateral [...] 2023 1:19 PM documented in this encounter [facility] Evaluation note Diagnosis Vitreous degeneration, bilateral- Primary Floaters in visual field, bilateral Keratoconjunctivitis sicca of both eyes not specified as Sjogren's Keratoconjunctivitis sicca, not specified as Sjogren's SPK (superficial punctate keratitis), bilateral Pseudophakia of both eyes Lens replaced by other means Retinal pigment epithelial mottling of macula Other retinal disorders 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 [facility] Degenerative tear of acetabular labrum- Primary Pain in right hip Pain in joint, pelvic region and thigh Primary osteoarthritis of right hip Primary localized osteoarthrosis, pelvic region and thigh [facility] Tendinopathy of right rotator cuff- Primary Impingement syndrome of right shoulder Other affections of shoulder region, not elsewhere classified [facility] Diagnosis Keratoconjunctivitis sicca of both eyes not specified as Sjogren's- Primary Keratoconjunctivitis sicca, not specified as Sjogren's Retinal pigment epithelial mottling of macula Other retinal disorders 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, bilateral Pseudophakia of both eyes Lens replaced by other means [facility] Tendinopathy of right rotator cuff- Primary Degenerative tear of acetabular labrum documented in this encounter [facility] Summary Purpose Family History No Family History [...] the event of a Fluress shortage, administer Umpire-Fluor 1 drop into both eyes as directed [...] Given 02/28/2023 12:30 PM EDT 1 Drop Reason for Referral Specialty Diagnoses / Procedures Referred By Milagros maxwell Referred To Contact [facility] Diagnoses Pain in right hip Procedures CONSULT TO PHYSICAL THERAPY PHYSICAL THERAPY EVALUATION HIGH COMPLEX 45 MINS Marcy Estrella, DO [address] [place] [address] [facility] [address] [address] Referral ID Status Reason Start Date Expiration Date Visits Requested Visits Authorized [id number] Pending Review Auto-Generat ed Referral 01/31/2024 01/30/2025 1 1 Specialty Diagnoses / Procedures Referred By Milagros maxwell Referred To Contact [facility] Diagnoses Tendinopathy of right rotator cuff Impingement syndrome of right shoulder Procedures CONSULT TO PHYSICAL THERAPY PHYSICAL THERAPY EVALUATION HIGH COMPLEX 45 MINS Marcy Estrella, DO [address] [place] [address] [facility] [address] [address] Referral ID Status Reason Start Date Expiration Date Visits Requested Visits Authorized [id number] Pending Review Auto-Generat ed Referral 02/16/2024 02/15/2025 1 1 Additional Source Comments INFORMATION SOURCE (unrecogn ized section and content) DATE CREATED AUTHOR 12/07/2022 [facility] DATE CREATED AUTHOR AUTHOR'S ORGANIZ ATION 03/29/2024 [facility] Source Comments (unrecognize d section and content) In the event this informatio n is protected by the Federal Confidentiality of Alcohol and Drug Abuse Patient Records regulations: The Federal rules restrict any use of the information to criminally investigate or prosecute any alcohol or drug abuse patient.[facility] the event this information is protected by the Federal Confidentiality of Alcohol and Drug Abuse Patient Records regulations: The Federal rules restrict any use of the information to criminally investigate or prosecute any alcohol or drug abuse patient.[facility] the event this information is protected by the Federal Confidentiality of Alcohol and Drug Abuse Patient Records regulations: The Federal rules restrict any use of the information to criminally investigate or prosecute any alcohol or drug abuse patient.[facility] the event this information is protected by the Federal Confidentiality of Alcohol and Drug Abuse Patient Records regulations: The Federal rules restrict any use of the information to criminally investigate or prosecute any alcohol or drug abuse patient.[facility] the event this information is protected by the Federal Confidentiality of Alcohol and Drug Abuse Patient Records regulations: The Federal rules restrict any use of the information to criminally investigate or prosecute any alcohol or drug abuse patient.[facility] the event this information is protected by the Federal Confidentiality of Alcohol and Drug Abuse Patient Records regulations: The Federal rules restrict any use of the information to criminally investigate or prosecute any alcohol or drug abuse patient.[facility] Reason for Visit (unrecogniz ed section and content) Reason Comments Yearly Exam Floaters Both Eyes Reason Comments New Right Hip Pain Reason Comments Radiology XR Reason Comments New Pain (Shoulder Pain) Reason Comments Dry Eye(s) Both Eyes Vitreous Degeneration (Pvd) Reason Comments Established Patient Right Hip Pain Care Teams (unrecognized sec tion and content) Rock Cutter Relationship Specialty Start Date End Date Loni Covarrubias MD PCP - General Family Medicine 08/31/10 Rock Cutter Relationship Specialty Start Date End Date Loni Covarrubias MD PCP - General Family Medicine 08/31/10 Rock Cutter Relationship Specialty Start Date End Date Loni Covarrubias MD PCP - General Family Medicine 08/31/10 Rock Cutter Relationship Specialty Start Date End Date Loni Covarrubias MD PCP - General Family Medicine 08/31/10 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 [facility] MyPublisher [facility]. provides no warranty or guarantee of the accuracy or completeness of information in this document.
== END 2024-04-13 15:56 | disposition home or self-care (01) ==
PROVIDERS: PCP Family Medicine; Visit Provider Family Medicine
DX: J20.9 Acute bronchitis, unspecified (principal)
CPT/HCPCS: 71046

== ENCOUNTER 2024-08-13 11:21 | Outpatient (OUT) | payer MEDICARE, SELFPAY ==
--- NOTE | 2024-08-13 | MM_ITS ---
Patient Name: MIYA THOMAS MR#: [id number] : 1945 Exam Date: 08/13/2024 Ordering Doctor: DR Dileep Covarrubias . RADIOLOGY REPORT PROCEDURE: MM TOMOSYNTHESIS SCREENING BI COMPARISON: MG MAMM SCREEN 3D APPLE CAD, 08/04/2022. MM TOMOSYNTHESIS SCREENING BI, 08/11/2023. INDICATIONS: Screening for malignant neoplasm Calculator Name NCI Breast Cancer Risk Assessment Tool 5 Year Breast Cancer Risk 2.40% Lifetime Breast Cancer Risk 4.60% Personal Breast Cancer No Personal Ovarian Cancer No Treatments None Family Cancers Mother with lung cancer at age 82. LOCATION: [facility] BREAST COMPOSITION: The breasts are heterogeneously dense,which may obscure small masses. FINDINGS: DIAGNOSTIC CATEGORY 2--BENIGN FINDING. NO CHANGE FROM COMPARISON. Scattered benign-appearing calcifications are present. RIGHT BREAST: No significant suspicious finding. LEFT BREAST: No significant suspicious finding. RECOMMENDATIONS: ROUTINE MAMMOGRAM AND CLINICAL EVALUATION IN 12 MONTHS. PLEASE NOTE: A NORMAL MAMMOGRAM DOES NOT EXCLUDE THE POSSIBILITY OF BREAST CANCER. A CLINICALLY SUSPICIOUS PALPABLE LUMP SHOULD BE BIOPSIED. Dictated by: Amilcar Patterson MD on 08/13/2024 at 12:49 Approved by: Amilcar Patterson MD on 08/13/2024 at 12:51
--- OUTSIDE RECORDS SUMMARY | 2024-08-13 11:26 | XMS_ITS | CCD ---
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 Role Phone BOBBY, DR IVEY Admitting Unavailable BOBBY, DR IVEY Attending Unavailable CHERELLEY, DR IVEY Consulting Unavailable CHERELLEY, DR IVEY Primary Care Unavailable HOY, DR IVEY Primary Care Unavailable HOY, DR IVEY Admitting Unavailable HOY, DR IVEY Attending Unavailable HOY, DR IVEY Consulting Unavailable WEST, DR VERONICA Christian Consulting Unavailable HIPOLITO FRANCO Admitting Unavailable JOAN, HIPOLITO Attending Unavailable ELEANOR, DR ABBE Quiroz Consulting Unavailable BOBBY, DR IVEY Primary Care Unavailable HIPOLITO FRANCO Consulting Unavailable BOBBY, DR IVEY Admitting Unavailable HOY, DR IVEY Attending Unavailable HOY, DR IVEY Consulting Unavailable CHERELLEY, DR IVEY Primary Care Unavailable ZIEBER, DR ABBE Quiroz Consulting Unavailable CHERELLEY, DR IVEY Admitting Unavailable HOY, DR IVEY Attending Unavailable HOY, DR IVEY Consulting Unavailable HOY, DR IVEY Primary Care Unavailable HOY, DR IVEY Admitting Unavailable HOY, DR IVEY [...] Unavailable Loni Covarrubias MD Primary Care Provider [phone] Loni Covarrubias MD Primary Care Provider [phone] LONI COVARRUBIAS Primary Care Unavailable MARCY ESTRELLA Referring Unavailable LONI COVARRUBIAS Primary Care Unavailable MARCY ESTRELLA Attending Unavailable MARCY ESTRELLA Referring Unavailable LONI COVARRUBIAS Primary Care Unavailable LONI COVARRUBIAS Primary Care Unavailable MARCY ESTRELLA Attending Unavailable LONI COVARRUBIAS Primary Care Unavailable CATALINO LONDON Attending Unavaila CATALINO Rahman Referring Unavaila LONI Stephens Primary Care Unavailable BOBBYLONI Referring Unavailable MARCY ESTRELLA Attending Unavailable Allergies Allergy Classification Reported Allergen(s) Allergy Type Date of Onset Reaction(s) Facility (2 sources) black walnut pollen extract; Translations: [[id number] REDUCTASE INHIBITORS] Drug Allergy 02-28-[address] [facility] Repository (8 sources) HMG-CoA reductase inhibitor Drug Allergy 02-28-[address] [facility] Medications Current Medications Medication Drug Class(es) Dates Sig (Normalized) Sig (Original) [id number] 200 actuat albuterol 0.09 mg/actuat metered dose inhaler (8 sources) beta2-Adrenergic Agonist Start: 11-12-2020 take 2 puff(s) by inhalation every six hours as needed albuterol HFA (PROAIR HFA) 90 mcg/actuation inhaler 2 Puffs every 6 hours as needed. Take as directed 11/12/2020 Active Comment on above: 2 Puffs every 6 hour s as needed. Take as directed ascorbic acid 500 mg oral tablet (8 sources) Vitamin C Start: 11-07-1999 ascorbic acid, vitamin C, (VITAMIN C) 500 mg tablet 11/07/1999 Active aspirin 81 mg delayed release oral tablet (8 sources) Platelet Aggregation Inhibitor, Nonsteroidal Anti-inflammatory Drug Start: 11-07-1989 aspirin, enteric coated (ASPIRIN, ENTERIC COATED) 81 mg EC tablet 11/07/1989 Active biotin 2.5 mg oral capsule (8 sources) Start: 11-07-1989 Biotin 2,500 mcg cap 11/07/1989 Active CALCIUM CITRATE-VITAMIN D3 ORAL (8 sources) Start: 11-07-1989 CALCIUM CITRATE-VITAMIN D3 ORAL 11/07/1989 Active Start: 11-07-1989 CALCIUM CITRAT E-VITAMIN D3 ORAL chondroitin sulfates 400 mg / glucosamine hydrochloride 500 mg oral capsule (8 sources) Start: 08-07-1990 glucosamine-ch ondroitin 500-400 mg capsule 08/07/1990 Active denosumab (8 sources) RANK Ligand Inhibitor Start: 07-08-2020 denosumab (PROLIA SUBCUTANEOUS) 07/08/2020 Active Start: 07-08-2020 denosumab (PRO KARIS SUBCUTANEOUS) docusate sodium 100 mg oral capsule (8 sources) Start: 11-07-1989 docusate sodiu m (COLACE) 100 mg capsule 11/07/1989 Active ezetimibe 10 mg oral tablet (8 sources) Dietary Cholesterol Absorption Inhibitor Start: 07-05-2020 take 1 tablet by mouth once daily ezetimibe (ZETIA) 10 mg tablet Take 10 mg by mouth once daily. 07/05/2020 Active Comment on above: Take 10 mg by mouth once daily. 30 actuat fluticasone furoate 0.1 mg/actuat / vilanterol 0.025 mg/actuat dry powder inhaler (8 sources) Corticosteroid, beta2-Adrenergic Agonist Start: 09-07-2020 BREO ELLIPTA 100-25 mcg/dose inhaler 09/07/2020 Active folic acid 0.4 mg / vitamin b12 1 mg sublingual tablet (2 sources) Vitamin B12 cyanocobalamin/f o lic acid (VITAMIN X82-ZLOQP ACID) 1,000-[address] by sublingual route. 0 Active gabapentin 100 mg oral capsule (8 sources) Anti-epileptic Agent Start: 11-12-2020 take 1 capsule by mouth once daily as needed gabapentin (NEURONTIN) 100 mg capsule Take 1 capsule by mouth once daily as needed (for sciatica) for up to 180 days. 11/12/2020 Active Comment on above: Take 1 capsule by [facility] once daily as needed (for sciatica) for up to 180 days. gemfibrozil 600 mg oral tablet (8 sources) Peroxisome Proliferator Receptor alpha Agonist Start: 09-03-2010 take 1 tablet by mouth once daily gemfibrozil (LOPID) 600 mg ORAL tablet Take one(1) tablet two(2) times daily. 0 09/03/2010 Active Comment on above: Take one(1) tablet t wo(2) times daily. mecobalamin 1 mg chewable tablet (8 sources) Start: 11-07-2014 mecobalamin, vitamin B12, 1,000 mcg chew 11/07/2014 Active multivit,iron,mine rals/lutein (CENTRUM SILVER ULTRA WOMEN'S ORAL) (8 sources) Start: 11-07-1999 multivit,iron, min erals/lutein (CENTRUM SILVER ULTRA WOMEN'S ORAL) 11/07/1999 Active Start: 11-07-1999 multivit,iron, minerals/lutein (CENTRUM SILVER ULTRA WOMEN'S ORAL) omega 2-lcq-xxz-fish oil (FI SH OIL) 100-160-1,000 mg cap (8 sources) omega 3-dha-epa- fish oil (FISH OIL) 100-160-1,000 mg cap Fish Oil Active omega 3-dha-epa- fish oil (FISH OIL) 100-160-1,000 mg cap Fish Oil 0 Active Comment on above: Fish Oil pantoprazole 40 mg delayed release oral tablet (8 sources) Proton Pump Inhibitor Start: 0 take 1 tablet by mouth once daily pantoprazole (PROTONIX) 40 mg ORAL tablet Take one(1) tablet daily. 0 09/03/2010 Active Comment on above: Take one(1) tablet d aily. simethicone 125 mg oral capsule (8 sources) Start: 5 Simethicone 125 mg cap 11/07/2014 Active vitamin e 180 mg oral capsule (8 sources) Start: 0 vitamin E mixed 400 unit cap 11/07/1989 Active Completed/Discontinued Medications Medication Drug Class(es) Dates Sig [...] OPERATIVE EYE, BEGINNING ONE DAY AFTER SURGERY meloxicam 7.5 mg oral tablet (3 sources) Nonsteroidal Anti-inflammatory Drug Start: 02-16-2024 End: 03-17-2024 take 1 tablet by mouth once daily meloxicam (MOBIC) 7.5 mg tablet Take 1 tablet by mouth once daily. 30 tablet 02/16/2024 03/17/2024 Comment on above: Take 1 tablet by ashok once daily. naproxen 250 mg oral tablet (5 sources) Nonsteroidal Anti-inflammatory Drug Start: 01-31-2024 End: 03-01-2024 take 1 tablet by mouth twice daily as needed naproxen (NAPROSYN) 250 mg tablet Indications: Pain in right hip Take 1-2 tablets by mouth two times a day as needed. for pain. Take with food. 60 tablet 01/31/2024 03/01/2024 Comment on above: Take 1-2 tablets by mouth two times a day as needed. for pain. Take with food. phenylephrine hydrochloride 25 mg/ml ophthalmic solution (2 [...] Chronic Chronic obstructive pulmonary disease and bronchiectasis (9 sources) Chronic obstructive pulmonary disease, unspecified; Translations: [Chronic obstructive lung disease] Onset: 2 11-12-2020 Chronic Disorders of lipid metabolism (10 sources) Pure hypercholesterolemia, unspecified; Translations: [Hyperlipidemia, unspecified] Onset: 2 11-12-2020 Chronic Esophageal disorders (8 sources) Gastroesophageal reflux disease; Translations: [Gastro-esophageal reflux [...] hip] 01-31-2024 Episodic Other non-traumatic joint disorders (2 sources) Pain in right shoulder; Translations: [Pain in joint, shoulder region] Onset: 4 02-16-2024 Episodic Residual codes; unclassified (8 sources) Tobacco user; Translations: [Tobacco use] 11-12-2020 Episodic Residual codes; unclassified (1 source) Pain, unspecified; Translations: [Pain] Onset: 4 Episodic Residual codes; unclassified (1 source) Pain; Translations: [Pain, unspecified] 01-31-2024 Episodic Retinal detachments; defects; vascular occlusion; and [...] Test Name Value Interpretation Reference Range Facility CNOVon 03-27-2024 CNOV Office Visit (LOORRM ) NEVAEH THOMAS ([id number]) 1945 F Date Time Provider Department 03/27/24 [...] As of Date: 03/27/2024 Noted Allergy Reaction [id number] REDUCTASE INHIBIT*02/28/2023 16 - Unknown Date Reviewed: 03/27/2024 Reviewed by: Marcy Estrella DO - Fully Assessed Reason for Visit: Established Patient [175] Right Hip Pain [1554] Primary Visit Diagnosis: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 CNOVon 02-16-2024 CNOV Office Visit (LOORRM ) NEVAEH THOMAS ([id number]) 1945 F Date Time Provider Department 02/16/24 1:15 PM MARCY ESTRELLA LOORRM During your visit today, we recorded the following information about you: Marcy Estrella DO 02/16/2024 1:40 PM Signed Nevaeh Thomas [...] Months Frequency: Continuous Intervention/Comfort measure: Medication Comments: Jeffrosmanuela This is a this is a 79-year-old [...] results and radiologist's interpretation, available in the [facility] health record. 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 Normal [facility] XR SHLDR >/=3V AP/LAURA AP/OTH R RTon [...] - IMPRESSION: MINIMAL DEGENERATIVE CHANGES RIGHT SHOULDER River Driver: TAYA Transcribe Date/Time: Feb 16 2024 2:48P Dictated by : MEHNAZ LOBATO MD This examination was interpreted and the report reviewed and electronically signed by: MEHNAZ LOBATO MD on Feb 16 2024 2:49PM EST [id number] Normal [facility] XR Shoulder - right 3 Viewso n 02-16-2024 IMPRESSION: MINIMAL DEGENERATIVE CHANGES RIGHT SHOULDER River Driver: TAYA Transcribe Date/Time: Feb 16 2024 2:48P Dictated by : MEHNAZ LOBATO MD This examination was interpreted and the report reviewed and electronically signed by: MEHNAZ LOBATO MD on Feb 16 2024 2:49PM [facility] DIVISION OF RADIOLOGY * * *Final Report* * * DATE [...] aortic arch.. No other significant abnormality. - DIVISION OF RADIOLOGY Provider, mar Giordano - 02/16/2024 * * *Final Report* * * DATE [...] aortic arch.. No other significant abnormality. - IMPRESSION IMPRESSION: MINIMAL DEGENERATIVE CHANGES RIGHT SHOULDER River Driver: TAYA Transcribe Date/Time: Feb 16 2024 2:48P Dictated by : MEHNAZ LOBATO MD This examination was interpreted and the report reviewed and electronically signed by: MEHNAZ LOBATO MD on Feb 16 2024 2:49PM EST [facility] Radiology Study observation (narrative) [facility] XR Shoulder - right 3 ViewsO rdered By: Ccf Provider on 02-16-[address] [facility] CNOVon 01-31-2024 CNOV Office Visit (LOORRM ) NEVAEH THOMAS ([id number]) 1945 F Date Time Provider Department 01/31/24 2:15 PM MARCY ESTRELLA LOORRM During your visit today, we recorded the following information about you: Marcy Estrella DO 01/31/2024 2:59 PM Signed Nevaeh Thomas [...] results and radiologist's interpretation, available in the [facility] health record. 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 Normal [facility] XR HIP 3V PELV+ AP/LAT RTon 01-31-2024 XR HIP 3V PELV+ AP/LAT RT * * *Final Report* * * DATE OF EXAM: Jan 31 2024 2:02PM LZX 5352 - XR HIP 3V PELV+ AP/LAT [...] lower abdomen. IMPRESSION: Right hip grossly unremarkable. River Driver: PSCB Transcribe Date/Time: Jan 31 2024 2:13P Dictated by : PORFIRIO MURPHY MD This examination was interpreted and the report reviewed and electronically signed by: PORFIRIO MURPHY MD on Jan 31 2024 2:14PM EST [id number] Normal [facility] XR Pelvis and Hip - right AP and Lateral frogon 01-31-2024 IMPRESSION: Right hip grossly unremarkable. River Driver: PSCB Transcribe Date/Time: Jan 31 2024 2:13P Dictated by : PORFIROI MURPHY MD This examination was interpreted and the report reviewed and electronically signed by: PORFIRIO MURPHY MD on Jan 31 2024 2:14PM EST DIVISION OF RADIOLOGY * * *Final Report* * * DATE OF EXAM: Jan 31 2024 2:02PM LZX 5352 - XR HIP 3V PELV+ AP/LAT [...] contents. Surgical clips in the lower abdomen. DIVISION OF RADIOLOGY Provider, [facility] - 01/31/2024 * * *Final Report* * * DATE OF EXAM: Jan 31 2024 2:02PM LZX 5352 - XR HIP 3V PELV+ AP/LAT [...] contents. Surgical clips in the lower abdomen. IMPRESSION IMPRESSION: Right hip grossly unremarkable. River Driver: PSCB Transcribe Date/Time: Jan 31 2024 2:13P Dictated by : PORFIRIO MURPHY MD This examination was interpreted and the report reviewed and electronically signed by: PORFIRIO MURPHY MD on Jan 31 2024 2:14PM EST [facility] Radiology Study observation (narrative) [facility] XR Pelvis and Hip - right AP and Lateral frogOrdered By: Ccf Provider on 01-31-[address] [facility] CALCIUMon 12-07-2022 Calcium [Mass/Vol] 9.4 mg/dL Normal 8.5-10.1 [facility] Comment on above: Performed By: #### LAZARUS LOBO #### [facility] [address] [place] [address] Dr. Lori Bautista CREATININEon 12-07-2022 Creatinine [Mass/Vol] 0.64 mg/dL Normal 0.55-1.02 [facility] Comment on above: Performed By: #### LAZARUS LOBO #### [facility] [address] [place] [address] Dr. Lori Bautista EGFR-AF MALDIVIAN >60 Normal >=60 [facility] Comment on above: Performed By: #### LAZARUS LOBO #### [facility] [address] [place] [address] Dr. Lori Bautista EGFR-NON AF MALDIVIAN >60 Normal >=60 [facility] Comment on above: Performed By: #### LAZARUS LOBO #### [facility] [address] [place] [address] LUNG CANCER SCREENINGon [...] VERONICA DUNCAN Date: 2022-09-10 14:[address] [facility] INSULINon 08-28-2022 Insulin 4.3 uIU/mL Normal 2.6-24.9 [facility] Comment on above: Performed By: #### I NSULIN #### [facility] [address] [place] [address] Dr. Lori Bautista CBC AUTO DIFFon 08-27-2022 BASO # 0.1 103/ul Normal 0.0-0.1 [facility] Comment on above: Performed By: #### C BC #### [facility] [address] [place] [address] Dr. Lori Bautista Basophils/100 WBC (Bld) 0.6 % Normal 0.2-2.0 [facility] Comment on above: Performed By: #### C BC #### [facility] [address] [place] [address] Dr. Lori Bautista EO # 0.1 103/ul Normal 0.0-0.7 [facility] Comment on above: Performed By: #### C BC #### [facility] [address] [place] [address] Dr. Lori Bautista Eosinophils/100 WBC (Bld) 0.6 % Critically low 0.9-7.0 [facility] Comment on above: Performed By: #### C BC #### [facility] [address] [place] [address] Dr. Lori Bautista Erythrocyte distribution width (RBC) [Ratio] 13.2 % Normal 11.0-15.0 [facility] Comment on above: Performed By: #### C BC #### [facility] [address] [place] [address] Dr. Lori Bautista Hematocrit (Bld) [Volume fraction] 41.3 % Normal 36.0-48.0 [facility] Comment on above: Performed By: #### C BC #### [facility] [address] [place] [address] Dr. Lori Bautista Hemoglobin (Bld) [Mass/Vol] 13.5 g/dL Normal 12.0-16.0 [facility] Comment on above: Performed By: #### C BC #### [facility] [address] [place] [address] Dr. Lori Bautista IG # 0.02 10e3/ul Normal 0.00-0.[address] [facility] Comment on above: Performed By: #### C BC #### [facility] [address] [place] [address] Dr. Lori Bautista IG % 0.3 % Normal 0.0-0.[address] [facility] Comment on above: Performed By: #### C BC #### [facility] [address] [place] [address] Dr. Lori Bautista LYMPH # 2.0 103/ul Normal 1.2-3.[address] [facility] Comment on above: Performed By: #### C BC #### [facility] [address] [place] [address] Dr. Lori Bautista Lymphocytes/100 WBC (Bld) 25.6 % Normal 20.5-60.0 [facility] Comment on above: Performed By: #### C BC #### [facility] [address] [place] [address] Dr. Lori Bautista MANUAL DIFF REQ NO Normal [facility] Comment on above: Performed By: #### C BC #### [facility] [address] [place] [address] Dr. Lori Bautista MCH (RBC) [Entitic mass] 31.1 pg Normal 26.7-34.0 [facility] Comment on above: Performed By: #### C BC #### [facility] [address] [place] [address] Dr. Lori Bautista MCHC (RBC) [Mass/Vol] 32.7 g/dL Normal 29.9-35.2 [facility] Comment on above: Performed By: #### C BC #### [facility] [address] [place] [address] Dr. Lori Bautista MCV (RBC) [Entitic vol] 95.2 fL Normal 81.0-99.0 [facility] Comment on above: Performed By: #### C BC #### [facility] [address] [place] [address] Dr. Lori Bautista MONO # 0.7 103/ul Normal 0.3-0.8 [facility] Comment on above: Performed By: #### C BC #### [facility] [address] [place] [address] Dr. Lori Bautista Monocytes/100 WBC (Bld) 8.4 % Normal 1.7-12.0 [facility] Comment on above: Performed By: #### C BC #### [facility] [address] [place] [address] Dr. Lori Bautista NEUT # 5.0 103/ul Normal 1.4-6.[address] [facility] Comment on above: Performed By: #### C BC #### [facility] [address] [place] [address] Dr. Lori Bautista Neutrophils/100 WBC (Bld) 64.5 % Normal 43.0-75.[address] [facility] Comment on above: Performed By: #### C BC #### [facility] [address] [place], [place] [address] Dr. Lori Bautista Platelet mean volume (Bld) [Entitic vol] 9.9 fL Normal 9.5-13.5 [facility] Comment on above: Performed By: #### C BC #### [facility] [address] [place] [address] [address] Lori Bautista PLT 310 103/ul Normal 150-[address] [facility] Comment on above: Performed By: #### C BC #### [facility] [address] [place] [address] [address] Lori Bautista RBC 4.34 106/ul Normal 4.20-5.40 [facility] Comment on above: Performed By: #### C BC #### [facility] [address] [place] [address] [address] Lori Bautista WBC 7.8 103/ul Normal 4.0-11.0 [facility] Comment on above: Performed By: #### C BC #### [facility] [address] [place] [address] [address] Lori Bautista FREE THYROXINE INDEX T7on FTI 2.26 Normal 1.30-4.50 [facility] Comment on above: Performed By: #### L IPID, TSH, T7, CMP ####[facility] [address] [place], [place] [address]BhDr. Lori Bautista T3U 31.0 % Normal 30.0-39.0 [facility] Comment on above: Performed By: #### L IPID, TSH, T7, CMP ####[facility] [address] [place], [place] [address]AfDr. Lori Bautista T4 [Mass/Vol] 7.30 ug/dL Normal 4.80-13.90 [facility] Comment on above: Performed By: #### L IPID, TSH, T7, CMP ####[facility] [address] [place] [id number]. Lori Bautista GLYCOHEMOGLOBIN A1Con 2021 ADA RECOMMENDATION SEE BELOW Normal [facility] Comment on above: Result Comment: ADA RECOMMENDED LIMIT 4.0 - 6.0 ADA THERAPEUTIC TARGET < 7.0 ACTION SUGGESTED > 7.0 Performed By: #### A 1C #### [facility] [address] [place] [address] [address] Lori Bautista Glucose [Mass/Vol] 117 mg/dL Normal [facility] Comment on above: Performed By: #### A 1C #### [facility] [address] [place] [address] [address] Lori Bautista HbA1c (Bld) [Mass fraction] 5.7 % Normal 4.5-6.2 [facility] Comment on above: Performed By: #### A 1C #### [facility] [address] [place] [address] [address] Lori Bautista IRONon 08-27-2022 Iron [Mass/Vol] 105.0 ug/dL Normal 50.0-170.0 [facility] Comment on above: Performed By: #### I SAROJ VITAD ####[facility] [address] [place] [address]DrClarence Bautista LIPID PROFILEon 08-27-2022 CHOL-HDL RATIO NORM SEE BELOW Normal [facility] Comment on above: Result Comment: 3.3 - 4.4 LOW RISK 4.4 - 7.1 AVERAGE RISK 7.1 - 11.0 MODERATE RISK >11.0 HIGH RISK Performed By: #### L IPID, TSH, T7, CMP ####[facility] [address] [place] [id number] Bautista Cholesterol [Mass/Vol] 186 mg/dL Normal <=[address] [facility] Comment on above: Performed By: #### L IPID, TSH, T7, CMP ####[facility] [address] [place] [id number] Bautista Cholesterol in HDL [Mass/Vol] 55 mg/dL Normal 40-60 [facility] Comment on above: Performed By: #### L IPID, TSH, T7, CMP ####[facility] [address] [place] [id number]. Lori Bautista Cholesterol in LDL [Mass/Vol] 116.4 mg/dL Normal [facility] Comment on above: Performed By: #### L IPID, TSH, T7, CMP ####[facility] [address] [place] [address]Dr. Lori Bautista Cholesterol.total/Ch olesterol in HDL [Mass ratio] 3.4 {ratio} Normal [facility] Comment on above: Performed By: #### L IPID, TSH, T7, CMP ####[facility] [address] [place] [address]Dr. Lori Bautista HDL NORMAL > or = 60 mg/dl - LO W CARDIOVASCULAR RISK <40 mg/dl - HIGH CARDIOVASCULAR RISK Normal [facility] Comment on above: Performed By: #### L IPID, TSH, T7, CMP ####[facility] [address] [place] [address]Dr. Lori Bautista LDL CALC NORMAL SEE BELOW Normal [facility] Comment on above: Result Comment: <100 mg/dl OPTIMAL 100 - 129 mg/dl NEAR OR ABOVE OPTIMAL 130 - 159 mg/dl BORDERLINE HIGH 160 - 189 mg/dl HIGH >190 mg/dl VERY HIGH Performed By: #### L IPID, TSH, T7, CMP ####[facility] [address] [place] [address]Dr. Lori Bautista Triglyceride [Mass/Vol] 73 mg/dL Normal <=[address] [facility] Comment on above: Performed By: #### L IPID, TSH, T7, CMP ####[facility] [address] [place] [address]Dr. Lori Bautista VLDL CALC 14.6 mg/dL Normal [facility] Comment on above: Performed By: #### L IPID, TSH, T7, CMP ####[facility] [address] [place] [address]Dr. Lori Bautista PROF 14(COMP METB)on 022 Albumin [Mass/Vol] 3.9 g/dL Normal 3.4-5.0 [facility] Comment on above: Performed By: #### L IPID, TSH, T7, CMP ####[facility] [address] [place] [address]Dr. Lori Bautista Albumin/Globulin [Mass ratio] 1.2 {ratio} Normal [facility] Comment on above: Performed By: #### L IPID, TSH, T7, CMP ####[facility] [address] [place] [address]Dr. Lori Bautista ALP [Catalytic activity/Vol] 68 U/L Normal 46-116 [facility] Comment on above: Performed By: #### L IPID, TSH, T7, CMP ####[facility] [address] [place], [place] [address]Dr. Lori Bautista ALT [Catalytic activity/Vol] 20 U/L Normal 14-59 [facility] Comment on above: Performed By: #### L IPID, TSH, T7, CMP ####[facility] [address] [place], [place] [address]Dr. Lori Bautista Anion gap [Moles/Vol] 8.2 mmol/L Normal [facility] Comment on above: Performed By: #### L IPID, TSH, T7, CMP ####[facility] [address] [place], [place] [address]Dr. Lori Bautista AST [Catalytic activity/Vol] 22 U/L Normal 15-37 [facility] Comment on above: Performed By: #### L IPID, TSH, T7, CMP ####[facility] [address] [place], [place] [address]Dr. Lori Bautista Bilirubin [Mass/Vol] 0.3 mg/dL Normal 0.2-1.0 [facility] Comment on above: Performed By: #### L IPID, TSH, T7, CMP ####[facility] [address] [place], [place] [address]Dr. Lori Bautista Calcium [Mass/Vol] 9.2 mg/dL Normal 8.5-10.1 [facility] Comment on above: Performed By: #### L IPID, TSH, T7, CMP ####[facility] [address] [place], [place] [address]Dr. Lori Bautista Chloride [Moles/Vol] 105 mmol/L Normal 98-[address] [facility] Comment on above: Performed By: #### L IPID, TSH, T7, CMP ####[facility] [address] [place] [address]Dr. Lori Bautista CO2 [Moles/Vol] 30.0 mmol/L Normal 21.0-32.[address] [facility] Comment on above: Performed By: #### L IPID, TSH, T7, CMP ####[facility] G[address]em[address] [place], [place] [address]Dr. Lori Bautista Creatinine [Mass/Vol] 0.67 mg/dL Normal 0.55-1.[address] [facility] Comment on above: Performed By: #### L IPID, TSH, T7, CMP ####[facility] L[address] [place], [place] [address]Dr. Lori Bautista EGFR-AF MALDIVIAN >60 Normal >=[address] [facility] Comment on above: Performed By: #### L IPID, TSH, T7, CMP ####[facility] [address] [place], [place] [address]Dr. Lori Bautista EGFR-NON AF MALDIVIAN >60 Normal >=60 [facility] Comment on above: Performed By: #### L IPID, TSH, T7, CMP ####[facility] [address] [place], [place] [address]Dr. Lori Bautista Globulin (S) [Mass/Vol] 3.3 g/dL Normal [facility] Comment on above: Performed By: #### L IPID, TSH, T7, CMP ####[facility] [address] [place] [address]Dr. Lori Bautista Glucose [Mass/Vol] 84 mg/dL Normal 74-106 [facility] Comment on above: Performed By: #### L IPID, TSH, T7, CMP ####[facility] Rxbuwhvlxf[address] [place], [place] [address]Dr. Lori Bautista Potassium [Moles/Vol] 4.2 mmol/L Normal 3.5-5.[address] [facility] Comment on above: Performed By: #### L IPID, TSH, T7, CMP ####[facility] [address] [place] [address]Dr. Lori Bautista Protein [Mass/Vol] 7.2 g/dL Normal 6.4-8.2 [facility] Comment on above: Performed By: #### L IPID, TSH, T7, CMP ####[facility] [address] [place] [address]Dr. Lori Bautista Sodium [Moles/Vol] 139 mmol/L Normal 136-145 [facility] Comment on above: Performed By: #### L IPID, TSH, T7, CMP ####[facility] [address] [place], [place] [address]Dr. Lori Bautista Urea nitrogen [Mass/Vol] 18.0 mg/dL Normal 7.0-18.0 [facility] Comment on above: Performed By: #### L IPID, TSH, T7, CMP ####[facility] [address] [place], [place] [address]Dr. Lori Bautista Urea nitrogen/Creatinine [Mass ratio] 26.9 mg/mg Normal [facility] Comment on above: Performed By: #### L IPID, TSH, T7, CMP ####[facility] [address] [place], [place] [address]Dr. Lori Bautista TSHon 08-27-2022 TSH 1.615 uIU/mL Normal 0.358-3.740 [facility] Comment on above: Performed By: #### L IPID, TSH, T7, CMP ####[facility] [address] [place], [place] [address]Dr. Lori Bautista VITAMIN D 25 OHon 08-27-2022 VIT D 25-OH 73.1 ng/mL Normal [facility] Comment on above: Performed By: #### I SAROJ, VITAD ####[facility] [address] [place], [place] [address]Dr. Lori Bautista VIT D RANGES SEE BELOW Normal [facility] Comment on above: Result Comment: <20 ng/mL Vit D deficient 20 - <30 ng/mL Vit D insufficient 30 - 100 ng/mL Vit D sufficient >100 ng/mL Potential Toxicity Performed By: #### I SAROJ, VITAD ####[facility] [address] [place], [place] [address]DvClarence Bautista MG MAMM SCREEN 3D APPLE CADon 08-04-2022 MG MAMM SCREEN 3D APPLE CAD Patient: NEVAEH THOMAS Exam Date: 08/04/2022 : 1945 Gender:F Ordering : DR CATALINA CERVANTES Admission #: [id number] Family : Order #: [id number] CLICK HERE TO VIEW EXAM RADIOLOGY REPORT [...] lung cancer at age 84. LOCATION: [facility] BREAST COMPOSITION: Heterogeneously dense,which may obscure [...] MD on 08/04/2022 at 13:[address] [facility] Covid-19 PCR (CVDTBH)on SARS-CoV-2 (COVID-19) RNA PABLO+probe Ql (Unsp spec) Not detected Normal NOT DETECTED [facility] Comment on above: Result Comment: This test is not yet approved or cleared by the [place] FDA. When there are no FDA-approved or cleared tests available, and other criteria are met, FDA can make tests available under an emergency access mechanism called an Emergency Use Authorization (EUA). The EUA for this test is supported by the [place] of Health and Human Service's (HHS's) declaration [...] SARS-CoV-2. Performed By: #### C VDTB #### [facility] [address] [place] [address] Dr. Lori Bautista SYMPTOMATIC COVID-19 ANTIGEN on 05-12-2022 EUA Statement SEE BELOW Normal [facility] Comment on above: Result Comment: This test [...] sooner. Performed By: #### C VDAGS #### [facility] [address] [place] [address] Dr. Lori Bautista SARS-CoV-2 (COVID-19) RNA PABLO+probe Ql (Unsp spec) Negative Normal NEGATIVE [facility] Comment on above: Performed By: #### C VDAGS #### [facility] [address] [place] [address] Dr. Lori Bautista CALCIUMon 05-04-2022 Calcium [Mass/Vol] 9.6 mg/dL Normal 8.5-10.1 [facility] Comment on above: Performed By: #### Sherry TAMAYO [place] ####[facility] [address] [place], [place] [address]Jx. Lori Bautista CREATININEon 05-04-2022 Creatinine [Mass/Vol] 0.68 mg/dL Normal 0.55-1.02 [facility] Comment on above: Performed By: #### Sherry TAMAYO, [place] ####[facility] [address] [place], [place] [address]Qa. Lori Bautista EGFR-AF MALDIVIAN Normal >=60 [facility] Comment on above: Performed By: #### Sherry TAMAYO [place] ####[facility] [address] [place], [place] [address]Ja. Lori Bautista EGFR-NON AF MALDIVIAN Normal >=60 [facility] Comment on above: Performed By: #### Sherry TAMAYO [place] ####[facility] [address] [place], [place] [address]Pc. Lori Bautista XR DEXA BONE DENSITYon 03-29 [...] by: ABBE WEBSTER Date: 2022-03-29 12:43 Normal [facility] XR KUB 1 VIEWon 12-18-2021 [...] by: ABBE WEBSTER Date: 2021-12-18 15:43 Normal [facility] Encounters Encounter Date Encounter Type Care Provider Facility Start: 03-27-2024 End: 03-27-2024 ambulatory [facility] Facility:[facility] Start: 03-27-2024 End: 03-27-2024 Patient encounter procedure Marcy Estrella DO Work Phone: Orthopaedics Comment on above: Tendinopathy of righ t rotator cuff (Primary Dx); Degenerative tear of acetabular labrum Start: 03-05-2024 End: 03-05-2024 [facility] Facility:[facility] Start: 03-05-2024 End: 03-05-2024 Patient encounter procedure [...] Patient encounter procedure Judy Lopez RT(R) SUMAN OLIVEROS Comment on above: Tendinopathy of righ t rotator cuff (Primary Dx); Impingement syndrome of right shoulder Start: 02-16-2024 End: 02-16-2024 Subsequent hospital visit by physician Bryson Arana 1 Work Phone: Radiology Comment on above: Acute pain of right shoulder [M25.511] Start: 01-31-2024 End: 01-31-2024 ambulatory [facility] Facility:[facility] Start: 01-31-2024 End: 01-31-2024 Patient encounter procedure Marcy Estrella DO Work Phone: Orthopaedics Comment on above: Degenerative tear of acetabular labrum (Primary Dx); Pain in right hip; Primary osteoarthritis of right hip Start: 01-31-2024 End: 01-31-2024 Subsequent hospital visit by physician Bryson Arana 1 Work Phone: Radiology Comment on above: Pain [R52] Start: 02-28-2023 End: 02-28-2023 Patient encounter procedure Catalino London OD Work [...] 12-18-2021 End: 12-19-2021 ambulatory HIPOLITO FRANCO Facility:[facility] Procedures Date Procedure Procedure Detail Performing Clinician Start: 02-16-2024 Radex shoulder compl ete minimum 2 views Marcy Estrella DO Work Phone: Start: 01-31-2024 Radex hip unilateral with pelvis 2-3 views Marcy Estrella DO Work Phone: Plan of Treatment Date Care Activity Detail Author Start: 08-01-2026 Urine microalbumin profile DTaP,Tdap,Td Vaccine (3 - Td or Tdap) 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 Expected: 02/23/2026 [facility] Work Phone: Comment on above: Expected: 02/23/2026 Start: 03-06-2025 End: 03-06-2025 Patient encounter procedure 03/06/2025 1:30 PM EDT Office Visit [facility] Ophthalmology [address] [place], [place] [id number] Catalino London S, OD [address] [place] [address] Annual Eye exam Ophthalmology Comment on above: Annual Eye exam Start: 02-17-2025 OCT MACULA CIRRUS OU (BOTH EYES) OCT MACULA CIRRUS OU (BOTH EYES) [facility] Imaging Routine 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 Start: 07-08-2024 Influenza vaccination [facility] Start: 05-27-2024 Diabetes Screening Diabetes Screenin g [facility] Start: 03-27-2024 End: 03-27-2024 Patient encounter procedure 03/27/2024 1:15 PM EDT Office Visit Orthopaedics [address] [place] [address] Marcy Estrella, DO [address] [place] [address] 8 week right hip pain Orthopaedics Comment on above: 8 week right hip dave n Start: 11-07-2023 Advance Directive Discussion Advance Directive Discussion [facility] Start: 11-07-2023 Behavioral Health Screening Behavioral Health Screening [facility] Start: 11-07-2023 Depression Assessment Depression Ass essment [facility] Start: 07-08-2023 Covid-19 Vaccine ( season) Covid-19 Vaccine ( season) [facility] Start: 07-08-2023 Influenza vaccination Influenza Vacc ine (#1) [facility] Start: 11-07-2022 ADVANCE DIRECTIVE DISCUSSION ADVANCE DIRECTIVE DISCUSSION [facility] Start: 11-07-2022 DEPRESSION ASSESSMENT DEPRESSION ASS ESSMENT [facility] Start: 05-03-2022 COVID-19 VACCINE (4 - Booster for Pfizer series) COVID-19 VACCINE (4 - Booster for Pfizer series) [facility] Start: 02-11-2012 BONE DENSITY BONE DENSITY [facility] Start: 02-11-2012 Screening for osteoporosis Bone Density Screening [facility] Start: 2007 RSV Vaccine (1 - 1-dose 60+ series) RSV Vaccine (1 - 1-dose 60+ series) [facility] Start: 1997 Influenza vaccination LUNG CANCER [facility] Start: 1997 Screening for malignant neoplasm of lung Lung Cancer Screening [facility] Start: 1997 SHINGRIX VACCINE (1 of 2) SHINGRIX VACCINE (1 of 2) [facility] Start: 02-11-1992 DIABETES SCREEN DIABETES SCREEN [facility] Start: 1966 Urine microalbumin profile DTAP,TDAP,TD (1 - Tdap) [facility] Start: 1965 ANNUAL PCP TEAM CHRONIC DISEASE VISIT ANNUAL PCP TEAM CHRONIC DISEASE VISIT [facility] Start: 1965 Anxiety Screening Anxiety Screening [facility] Start: 1965 Depression Screening Depression Scre ening [facility] Start: 1965 HEPATITIS C SCREENING HEPATITIS C [facility] Start: 1965 Hepatitis C screening Hepatitis C [facility] Start: 1965 SPIROMETRY SPIROMETRY [facility] Start: 1953 PNEUMOCOCCAL: 65+ (1 - PCV) PNEUMOCOCCAL: 65+ (1 - PCV) 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 Payers Date Payer Category Payer Unknown [id number] 1959 Unknown [id number] 1945 Unknown [id number] 2.16.84 [id number] 1945 Unknown [id number] 2.16.84 [id number] 1945 Unknown [id number] 2.16.84 [id number] 1945 Unknown [id number] 2.16.84 [id number] 1945 Unknown [id number] 2.16.84 [id number] 1945 Unknown [id number] 2.16.84 [id number] 1945 Unknown [id number] 2.16.84 [id number] 1945 Unknown [id number] 2.16.84 [id number] Social History Date Type Detail Facility Start: 11-12-2020 Tobacco smoking status NHIS Smokes tobacco daily [facility] Work Phone: History of tobacco use Cigarette Smoker C [facility] Work Phone: Start: 11-12-2020 End: 01-31-2024 Cigarettes smoked current (pack per day) - Reported [address] [facility] Start: 11-12-2020 Tobacco use and exposure Smokeless tobacco non-user [facility] Work Phone: Start: 02-28-2023 End: 03-05-2024 Alcohol intake Lifetime non-drinker (finding) [facility] Start: 09-09-2020 History SDOH Alcohol Frequency [address] [facility] Start: 1945 Sex Assigned At Female [facility] Start: 09-09-2020 End: 01-31-2024 Alcohol Use Disorder Identification Test - Consumption [AUDIT-C] [facility] How often to you hav e a drink containing alcohol? Never [facility] Average Number of Drinks Not on file [facility] Start: 09-08-2020 Gender identity Identifies as female gender (finding) [facility] Start: 09-08-2020 Sexual orientation Heterosexual (finding) [facility] Medical Equipment Procedure Code Equipment Code Equipment Origin al Text Equipment Identifier Dates Lens Iol 0d +15 Derik Uv Abs - [id number] Start: 11-19-2020 Comment on above: Description: -0.26 Lens Iol 0d +15 Derik Uv Abs - [id number] Start: 12-03-2020 Comment on above: Description: -0.33 Clinical Notes 02-28-2023 to 03-27-2024 Marcy Estrella DO - 03/27/2024 1:06 PM Catalino Owens, OD - 03/05/2024 5:03 PM Judy [place] RT(R) - 02/16/2024 1:02 PM Marcy Leonardo DO - 02/16/2024 12:59 PM EDT Note Date & Type Note Facility 03-27-2024 Note HNO ID: [id number] Author: MARCY ESTRELLA DO Service: ? Author [...] Follow-up as needed Procedures Marcy Estrella DO [facility] 03-27-2024 History of Present illness Narrative Nevaeh [...] Marcy Estrella DO documented in this encounter [facility] 03-05-2024 Note HNO ID: [id number] Author: CATALINO LONDON, LUZ MARINA Service: ? Author Type: TRACK INSPECTOR Type: Progress Notes Filed: 03/05/2024 17:08 Note Text: Documentation transcribed from Paper notes from [facility] Downtime ASSESSMENT/PLAN: 1. Keratoconjunctivitis sicca of both [...] Z96.1 Monitor March 05, 2024 5:03 PM [facility] 03-05-2024 History of Present illness Narrative Documentation transcribed from Paper notes from [facility] Downtime ASSESSMENT/PLAN: 1. Keratoconjunctivitis sicca of both [...] 2024 5:03 PM documented in this encounter [facility] 02-16-2024 Note HNO ID: [id number] Author: JUDY LOPEZ RT(R) Service: ? Author [...] PATIENT PRESENTS WITH AN IMPLANTABLE OR ATTACHED MUSIC LIBRARIAN: No RADIOLOGY DEPARTMENT: General X-ray: Exam(s) Completed: Upper Extremity X-Ray(s): Shoulder, AP / TRUE AP / AXILLARY right PERIPHERAL IV DATA: Not applicable SIGNED BY: RT Anthony(R) February 16, 2024 1:02 PM [facility] 02-16-2024 Note HNO ID: [id number] Author: MARCY ESTRELLA, DO Service: ? Author [...] results and radiologist's interpretation, available in the [facility] health record. Images were reviewed with [...] decision making as documented. Marcy Estrella DO [facility] 02-16-2024 History of Present illness Narrative Radiology [...] PATIENT PRESENTS WITH AN IMPLANTABLE OR ATTACHED MUSIC LIBRARIAN: No RADIOLOGY DEPARTMENT: General X-ray: Exam(s) Completed: Upper Extremity X-Ray(s): Shoulder, AP / TRUE AP / AXILLARY right PERIPHERAL IV DATA: Not applicable SIGNED BY: RT Anthony(R) February 16, 2024 1:02 PM documented in this encounter [facility] 02-16-2024 History of Present illness Narrative Nevaeh [...] Months Frequency: Continuous Intervention/Comfort measure: Medication Comments: Josefamanuela Bailey is a this is a 79-year-old [...] results and radiologist's interpretation, available in the [facility] health record. Images were reviewed with [...] Marcy Estrella DO documented in this encounter [facility] 01-31-2024 Note HNO ID: [id number] Author: MARCY ESTRELLA DO Service: ? Author [...] results and radiologist's interpretation, available in the [facility] health record. Images were reviewed with [...] decision making as documented. Marcy Estrella DO [facility] 01-31-2024 Note HNO ID: [id number] Author: MARTHA CROOKS RT(R) Service: ? Author [...] PATIENT PRESENTS WITH AN IMPLANTABLE OR ATTACHED MUSIC LIBRARIAN: No RADIOLOGY DEPARTMENT: General X-ray: Exam(s) Completed: Pelvis X-Ray: Pelvis with Hip Right PERIPHERAL IV DATA: Not applicable SIGNED BY: RT Elisa(R) January 31, 2024 2:01 PM [facility] 01-31-2024 History of Present illness Narrative Images [...] results and radiologist's interpretation, available in the [facility] health record. Images were reviewed with [...] Marcy Estrella DO documented in this encounter [facility] 02-28-2023 History of Present illness Narrative ASSESSMENT/PLAN: [...] 2023 1:19 PM documented in this encounter [facility] Evaluation note Diagnosis Vitreous degeneration, bilateral- Primary Floaters in visual field, bilateral Keratoconjunctivitis sicca of both eyes not specified as Sjogren's Keratoconjunctivitis sicca, not specified as Sjogren's SPK (superficial punctate keratitis), bilateral Pseudophakia of both eyes Lens replaced by other means Retinal pigment epithelial mottling of macula Other retinal disorders 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 [facility] this [facility] [place] [facility] Diagnosis Degenerative tear of acetabular labrum- Primary Pain in right hip Pain in joint, pelvic region and thigh Primary osteoarthritis of right hip Primary localized osteoarthrosis, pelvic region and thigh documented in this [facility] [place] [facility] Diagnosis Tendinopathy of right rotator cuff- Primary Impingement syndrome of right shoulder Other affections of shoulder region, not elsewhere classified [facility] this 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 [place] [facility] Diagnosis Tendinopathy of right rotator cuff- Primary Degenerative tear of acetabular labrum documented in this [facility] [place] [facility]* Diagnosis Preop examination- Primary Preoperative examination, unspecified Combined forms of age-related cataract of both eyes Other and combined forms of senile cataract Chronic obstructive pulmonary disease, unspecified COPD type (HCC) Gastroesophageal reflux disease, unspecified whether esophagitis present Hyperlipidemia, unspecified hyperlipidemia type Tobacco abuse Tobacco use disorder Acute pain of right shoulder documented in this [facility] [place] [facility] Diagnosis Preop examination- Primary Preoperative examination, unspecified Combined forms of age-related cataract of both eyes Other and combined forms of senile cataract Chronic obstructive pulmonary disease, unspecified COPD type (HCC) Gastroesophageal reflux disease, unspecified whether esophagitis present Hyperlipidemia, unspecified hyperlipidemia type Tobacco abuse Tobacco use disorder Pain Generalized pain documented in this encounter [facility] for referral (narrative)* Diagnostic Procedure Only (Routine) - Closed Specialty Diagnoses / Procedures Referred By Contac t Referred To Contact XR IMAGING Diagnoses Acute pain of right shoulder Procedures XR SHOULDER GENERAL 3V OR MORE AP/TRUE AP/OTHER RIGHT RADEX SHOULDER COMPLETE MINIMUM 2 VIEWS Marcy Estrella, DO [address] [place] [address] [place] [address] Referral ID Status Reason Start Date Expiration Date V isits Requested Visits Authorized [id number] Closed Auto-Generate d Referral 02/07/2024 03/08/2025 1 1 [facility] for referral (narrative)* Diagnostic Procedure Only (Routine) - Closed Specialty Diagnoses / Procedures Referred By Contac t Referred To Contact XR IMAGING Diagnoses Pain Procedures XR HIP GENERAL 3V PELV/AP/LAT RIGHT RADEX HIP UNILATERAL WITH PELVIS 2-3 VIEWS Marcy Estrella, DO [address] [place] [address] [place] [address] Referral ID Status Reason Start Date Expiration Date V isits Requested Visits Authorized [id number] Closed Auto-Generate d Referral 01/24/2024 02/22/2025 1 1 [facility] for visit Narrative* Diagnostic Procedure Only (Routine) - Closed Specialty Diagnoses / Procedures Referred By Contac t Referred To Contact XR IMAGING Diagnoses Acute pain of right shoulder Procedures XR SHOULDER GENERAL 3V OR MORE AP/TRUE AP/OTHER RIGHT RADEX SHOULDER COMPLETE MINIMUM 2 VIEWS Marcy Estrella, DO [address] [place] [address] [place] [address] Referral ID Status Reason Start Date Expiration Date V isits Requested Visits Authorized [id number] Closed Auto-Generate d Referral 02/07/2024 03/08/2025 1 1 [facility] for visit Narrative* Diagnostic Procedure Only (Routine) - Closed Specialty Diagnoses / Procedures Referred By Contac t Referred To Contact XR IMAGING Diagnoses Pain Procedures XR HIP GENERAL 3V PELV/AP/LAT RIGHT RADEX HIP UNILATERAL WITH PELVIS 2-3 VIEWS Marcy Estrella, DO [address] [place] [address] [facility] [id number] Referral ID Status Reason Start Date Expiration Date V isits Requested Visits Authorized [id number] Closed Auto-Generate d Referral 01/24/2024 02/22/2025 [address] [facility] Summary Purpose Family History No Family History [...] the event of a Fluress shortage, administer Alejandra-Fluor 1 drop into both eyes as directed [...] COMPLEX 45 MINS Marcy Estrella, DO [address] [place] [address] [facility] [address] [place] [address] Referral ID Status Reason Start Date Expiration Date Visits Requested Visits Authorized [id number] Pending Review Auto-Generat ed Referral 01/31/2024 01/30/2025 1 1 Specialty Diagnoses / Procedures Referred By Contac t Referred To Contact [facility] Diagnoses Tendinopathy of right rotator cuff Impingement syndrome of right shoulder Procedures CONSULT TO PHYSICAL THERAPY PHYSICAL THERAPY EVALUATION HIGH COMPLEX 45 MINS Marcy Estrella DO [address] [place] [address] [facility] [address] [place] [address] Referral ID Status Reason Start Date Expiration Date Visits Requested Visits Authorized [id number] Pending Review Auto-Generat ed Referral 02/16/2024 02/15/2025 1 1 Additional Source Comments INFORMATION SOURCE (unrecogn ized section and content) DATE CREATED AUTHOR 12/07/2022 [facility] DATE CREATED AUTHOR AUTHOR'S ORGANIZ ATION 03/29/2024 [facility] Source Comments (unrecognize d section and content) In the event this informatio n is protected by the Federal Confidentiality of Alcohol and Drug Abuse Patient Records regulations: The Federal rules restrict any use of the information to criminally investigate or prosecute any alcohol or drug abuse patient.[facility] the event this information is protected by the Federal Confidentiality of Alcohol and Drug Abuse Patient Records regulations: The Federal rules restrict any use of the information to criminally investigate or prosecute any alcohol or drug abuse patient.[facility] the event this information is protected by the Federal Confidentiality of Alcohol and Drug Abuse Patient Records regulations: The Federal rules restrict any use of the information to criminally investigate or prosecute any alcohol or drug abuse patient.[facility] the event this information is protected by the Federal Confidentiality of Alcohol and Drug Abuse Patient Records regulations: The Federal rules restrict any use of the information to criminally investigate or prosecute any alcohol or drug abuse patient.[facility] the event this information is protected by the Federal Confidentiality of Alcohol and Drug Abuse Patient Records regulations: The Federal rules restrict any use of the information to criminally investigate or prosecute any alcohol or drug abuse patient.[facility] the event this information is protected by the Federal Confidentiality of Alcohol and Drug Abuse Patient Records regulations: The Federal rules restrict any use of the information to criminally investigate or prosecute any alcohol or drug abuse patient.[facility] the event this information is protected by the Federal Confidentiality of Alcohol and Drug Abuse Patient Records regulations: The Federal rules restrict any use of the information to criminally investigate or prosecute any alcohol or drug abuse patient.[facility] Hospital[facility] the event this information is protected by the Federal Confidentiality of Alcohol and Drug Abuse Patient Records regulations: The Federal rules restrict any use of the information to criminally investigate or prosecute any alcohol or drug abuse patient.[facility] Reason for Visit (unrecogniz ed section and content) Reason Comments Yearly Exam Floaters Both Eyes Reason Comments New Right Hip Pain Reason Comments Radiology XR Reason Comments New Pain (Shoulder Pain) Reason Comments Dry Eye(s) Both Eyes Vitreous Degeneration (Pvd) Reason Comments Established Patient Right Hip Pain Care Teams (unrecognized sec tion and content) [employer] Relationship Specialty Start Date End Date Loni Covarrubias MD PCP - General Family Medicine 08/31/10 [employer] Relationship Specialty Start Date End Date Loni Covarrubias MD PCP - General Family Medicine 08/31/10 [employer] Relationship Specialty Start Date End Date Loni Covarrubias MD PCP - General Family Medicine 08/31/10 [employer] Relationship Specialty Start Date End Date Loni Covarrubias MD PCP - General Family Medicine 08/31/10 [employer] Relationship Specialty Start Date End Date Loni Covarrubias MD PCP - General Family Medicine 08/31/10 [employer] Relationship Specialty Start Date End Date Loni Covarrubias MD PCP - General Family Medicine 08/31/10 [employer] Relationship Specialty Start Date End Date Loni Covarrubias MD PCP - General Family Medicine 08/31/10 [employer] Relationship Specialty Start Date End Date [...] BE BASED ON THE PRIMARY CLINICAL RECORDS. [facility] [employer] [facility]. provides no warranty or guarantee of the accuracy or completeness of information in this document.
== END 2024-08-13 11:22 | disposition home or self-care (01) ==
LOC: MAMMO 11:21
PROVIDERS: PCP Family Medicine; Visit Provider Family Medicine
DX: Z12.31 Encounter for screening mammogram for malignant neoplasm of breast (principal); Z80.1 Family history of malignant neoplasm of trachea, bronchus and lung
CPT/HCPCS: 77063; 77067

== ENCOUNTER 2024-09-13 07:35 | Outpatient (RCR) | payer MEDICARE, SELFPAY ==
[2024-09-12 11:17] LABS: Calcium 9.9 mg/dL (8.5-10.1); Estimated GFR (African America >60 (>=60 mL/min/1.73m^2); Estimated GFR (Non-African Ame >60 (>=60 mL/min/1.73m^2)
[2024-09-13 13:05] VITALS: BP 124/69; PULSE 87; TEMP 35.9
[2024-09-13] MEDS: DENOSUMAB 60 MG/ML SYRINGE SUBQ (13:48)
--- NOTE | 2024-09-13 14:05 | PC.NURSE ---
Pt here for Prolia, labs results done yesterday reviewed. Injection given, pt tolerated without incident. D/c'd stable.
== END 2024-09-27 08:53 | disposition home or self-care (01) ==
LOC: INF 07:35
PROVIDERS: PCP Family Medicine; Visit Provider Family Medicine
DX: M81.0 Age-related osteoporosis without current pathological fracture (principal)
CPT/HCPCS: 36415; 82310; 82565; 96372; J0897

== ENCOUNTER 2024-11-05 18:57 | Inpatient (IN) | payer MEDICARE, SELFPAY ==
[2024-11-05] VITALS (18 sets, daily range): BP systolic 104–148; BP diastolic 56–80; PULSE 97–142; TEMP 36.9–37.5; O2SAT 90–100; BMI 20.1; BMI 21.0
--- OUTSIDE RECORDS SUMMARY | 2024-11-05 19:05 | XMS_ITS | CCD ---
Author Organization [facility] Care Team Providers Care Machine Programmer Name Role Phone DR LONI COVARRUBIAS Admitting Unavailable MARCI, DR IVEY Attending Unavailable HOY, DR IVEY Consulting Unavailable MARCI, DR IVEY Primary Care Unavailable HOY, DR VIEY Primary Care Unavailable HOY, DR IVEY Admitting Unavailable HOY, DR IVEY Attending Unavailable HOY, DR IVEY Consulting Unavailable PERLA, DR VERONICA Christian Consulting Unavailable HIPOLITO FRANCO Admitting Unavailable HIPOLITO FRANCO Attending Unavailable ELEANOR, DR ABBE Quiroz Consulting Unavailable MARCI, DR IVEY Primary Care Unavailable HIPOLITO FRANCO Consulting Unavailable MARCI, DR IVEY Admitting Unavailable HOY, DR IVEY Attending Unavailable HOY, DR IVEY Consulting Unavailable CHERELLEY, DR IVEY Primary Care Unavailable ZIEBER, DR ABBE Quiroz Consulting Unavailable CHERELLEY, DR IVEY Admitting Unavailable HOY, DR IVEY Attending Unavailable HOY, DR IVEY Consulting Unavailable CHERELLEY, DR IVEY Primary Care Unavailable HOY, DR IVEY Admitting Unavailable HOY, DR IVEY Attending Unavailable CHERELLEY, DR IVEY Consulting Unavailable MARCI, DR IVEY Primary Care Unavailable CHERELLEY, DR IVEY Primary Care Unavailable HOJuanita, DR IVEY Consulting Unavailable MARCI, DR IVEY Admitting Unavailable MARCI, DR IVEY Attending Unavailable BILLY, DR ARNOLD Admitting Unavailable BILLY, DR ARNOLD Attending Unavailable PERLA, DR VERONICA Christian Consulting Unavailable MARCI, DR IVEY Primary Care Unavailable BILLY, DR ARNOLD Consulting Unavailable Loni Covarrubias MD Primary Care Provider [phone] Loni Covarrubias MD Primary Care Provider [phone] LONI COVARRUBIAS Primary Care Unavailable MARCY ESTRELLA Referring Unavailable LONI COVARRUBIAS Primary Care Unavailable MARCY ESTRELLA Attending Unavailable MARCY ESTRELLA Referring Unavailable LONI COVARRUBIAS Primary Care Unavailable LONI COVARRUBIAS Primary Care Unavailable MARCY ESTRELLA Attending Unavailable LONI COVARRUBIAS Primary Care Unavailable CATALINO LONDON Attending UnavailCATALINO Weaver Referring Unavaila LONI Stephens Primary Care Unavailable LONI COVARRUBIAS Referring Unavailable MARCY ESTRELLA Attending Unavailable Loni Covarrubias MD Primary Care Provider [phone] DARIUSZ RICH Attending Unavailable Allergies Allergy Classification Reported Allergen(s) Allergy Type Date of Onset Reaction(s) Facility (2 sources) black walnut pollen extract; Translations: [OSSOIHW-MBI-MZB REDUCTASE INHIBITORS] Drug Allergy 02-28-2023 [facility] Repository (8 sources) HMG-CoA reductase inhibitor Drug Allergy 02-28-2023 Unknown [facility] Medications Current Medications Medication Drug Class(es) Dates Sig (Normalized) Sig (Original) [id number] 200 actuat albuterol 0.09 mg/actuat metered dose inhaler (8 sources) beta2-Adrenergic Agonist Start: 11-12-2020 take 2 puff(s) by inhalation every six hours as needed albuterol HFA (PROAIR HFA) 90 mcg/actuation inhaler 2 Puffs every 6 hours as needed. Take as directed 11/12/2020 Active Comment on above: 2 Puffs every 6 hour s as needed. Take as directed ascorbic acid 500 mg oral tablet (10 sources) Vitamin C Start: 11-07-1999 ascorbic acid, vitamin C, (VITAMIN C) 500 mg tablet 11/07/1999 Active Ascorbic Acid (V itamin C) 500 MG capsule Vitamin C Active aspirin 81 mg delayed release oral tablet (10 sources) Platelet Aggregation Inhibitor, Nonsteroidal Anti-inflammatory Drug Start: 11-07-1989 aspirin, enteric coated (ASPIRIN, ENTERIC COATED) 81 mg EC tablet 11/07/1989 Active biotin 2.5 mg oral capsule (10 sources) Start: 11-07-1989 Biotin 2,500 m cg cap 11/07/1989 Active Biotin 2500 MCG chewable tablet Active Calcium Citrate / Vitamin D (2 sources) Calcium Citrate- Vitamin D (CALCIUM CITRATE + D PO) Take by mouth Active CALCIUM CITRATE-VITAMIN D3 ORAL (8 sources) Start: 11-07-1989 CALCIUM CITRAT E-VITAMIN D3 ORAL 11/07/1989 Active Start: 11-07-1989 CALCIUM CITRAT E-VITAMIN D3 ORAL chondroitin sulfates 400 mg / glucosamine hydrochloride 500 mg oral capsule (10 sources) Start: 08-07-1990 glucosamine-ch ondroitin 500-400 mg capsule 08/07/1990 Active take 1 tablet by ashok th in the morning, then take 1 tablet by mouth in the evening, then take 1 tablet by mouth at bedtime glucosamine-chondroitin 500-400 MG table t Take 1 tablet by mouth in the morning and 1 tablet in the evening and 1 tablet before bedtime. Active denosumab (10 sources) RANK Ligand Inhibitor Start: 07-08-2020 denosuma b (PROLIA SUBCUTANEOUS) 07/08/2020 Active Start: 07-08-2020 denosumab (PRO KARIS SUBCUTANEOUS) Denosumab (PROLI A SC) Inject under the skin Active docusate sodium 100 mg oral capsule (10 sources) Start: 11-07-1989 docusate sodiu m (COLACE) 100 mg capsule 11/07/1989 Active ezetimibe 10 mg oral tablet (10 sources) Dietary Cholesterol Absorption Inhibitor Start: 07-05-2020 take 1 tablet by mouth once daily ezetimibe (ZETIA) 10 mg tablet Take 10 mg by mouth once daily. 07/05/2020 Active Comment on above: Take 10 mg by mouth once daily. fish oil concentrate (Olin-3) 300 MG capsule (2 sources) fish oil concentrate (Olin-3) 300 MG capsule Take 550 mg by mouth Daily Active 30 actuat fluticasone furoate 0.1 mg/actuat / vilanterol 0.025 mg/actuat dry powder inhaler (10 sources) Corticosteroid, beta2-Adrenergic Agonist Start: 09-07-2020 BREO ELLIPTA 100-25 mcg/dose inhaler 09/07/2020 Active Fluticasone Furo ate-Vilanterol (Breo Ellipta) 100-25 MCG/ACT aerosol powder Inhale Active folic acid 0.4 mg / vitamin b12 1 mg sublingual tablet (2 sources) Vitamin B12 cyanocobalamin/f olic acid (VITAMIN B03-VCSQX ACID) 1,000-[address] by sublingual route. 0 Active gabapentin 100 mg oral capsule (10 sources) Anti-epileptic Agent Start: 021 take 1 capsule by mouth once daily as needed gabapentin (NEURONTIN) 100 mg capsule Take 1 capsule by mouth once daily as needed (for sciatica) for up to 180 days. 11/12/2020 Active Comment on above: Take 1 capsule by [facility] once daily as needed (for sciatica) for up to 180 days. gemfibrozil 600 mg oral tablet (10 sources) Peroxisome Proliferator Receptor alpha Agonist Start: 010 take 1 tablet by mouth once daily gemfibrozil (LOPID) 600 mg ORAL tablet Take one(1) tablet two(2) times daily. 0 09/03/2010 Active Comment on above: Take one(1) tablet t wo(2) times daily. mecobalamin 1 mg chewable tablet (8 sources) Start: mecobalamin, vitamin B12, 1,000 mcg chew 11/07/2014 Active Multiple Vitamin (multivitamin) tablet (2 sources) take 1 tablet by mouth once daily Multiple Vitamin (multivitamin) tablet Take 1 tablet by mouth Daily Active multivit,iron,mine rals/lutein (CENTRUM SILVER ULTRA WOMEN'S ORAL) (8 sources) Start: 000 multivit,iron,minerals/lute in (CENTRUM SILVER ULTRA WOMEN'S ORAL) 11/07/1999 Active Start: 11-07-1999 multivit,iron, minerals/lutein (CENTRUM SILVER ULTRA WOMEN'S ORAL) omega 8-qsa-taz-fish oil (FI SH OIL) 100-160-1,000 mg cap (8 sources) omega 3-dha-epa- fish oil (FISH OIL) 100-160-1,000 mg cap Fish Oil Active omega 3-dha-epa- fish oil (FISH OIL) 100-160-1,000 mg cap Fish Oil 0 Active Comment on above: Fish Oil pantoprazole 40 mg delayed release oral tablet (10 sources) Proton Pump Inhibitor Start: 0 take 1 tablet by mouth once daily pantoprazole (PROTONIX) 40 mg ORAL tablet Take one(1) tablet daily. 0 09/03/2010 Active Comment on above: Take one(1) tablet d aily. polyethylene glycol 3350 59802 mg powder for oral solution (2 sources) Osmotic Laxative polyethylene gl ycol, PEG, 3350 (Miralax) 17 g packet Take by mouth Active simethicone 125 mg oral capsule (10 sources) Start: Simethicone 125 mg cap 11/07/2014 Active simethicone (Myl icon) 125 MG chewable tablet 1 (one) time each day at the same time Active vitamin b12 1 mg oral tablet (2 sources) Vitamin B12 cyanocobalamin ( Vitamin B-12) 1000 MCG tablet Orally Active vitamin e 180 mg oral capsule (10 sources) Start: 11-07-1989 vitamin E mixed 400 unit cap 11/07/1989 Active take 1 capsule by mouth once cesar ly vitamin E 180 MG (400 UNIT) capsule Take 180 mg by mouth Daily Active Completed/Discontinued Medications Medication Drug Class(es) Dates [...] on above: Take 1 tablet by ashok th once daily. naproxen 250 mg oral tablet [...] Chronic Chronic obstructive pulmonary disease and bronchiectasis (11 sources) Chronic obstructive pulmonary disease, unspecified; Translations: [Chronic obstructive lung disease] Onset: 2 11-12-2020 Chronic Disorders of lipid metabolism (12 sources) Pure hypercholesterolemia, unspecified; Translations: [Hyperlipidemia, unspecified] Onset: 2 11-12-2020 Chronic Esophageal disorders (10 sources) Gastroesophageal reflux disease; Translations: [Gastro-esophageal reflux disease without esophagitis] Onset: 4 11-12-2020 Chronic Inflammation; infection of eye (except [...] CURR PATH FX] Onset: 3 Chronic Other congenital anomalies (2 sources) Acral keratosis; Translations: [Other specified congenital malformations of skin] 10-02-2024 Chronic Other connective tissue disease (2 sources) Disorder of rotator cuff; Translations: [Unspecified disorder of synovium and tendon, right shoulder] 02-16-2024 Episodic Other connective tissue disease (1 source) Impingement syndrome of right shoulder region; Translations: [Impingement syndrome of right shoulder] 02-16-2024 Episodic Other connective tissue disease (4 sources) Pain in right foot; Translations: [Pain in right foot] 10-02-2024 Episodic Other eye disorders (2 sources) Bilateral [...] joint, shoulder region] Onset: 4 02-16-2024 Episodic Other skin disorders (2 sources) Callosity; Translations: [Corns and callosities] 10-02-2024 Episodic Residual codes; unclassified (8 sources) Tobacco [...] Test Name Value Interpretation Reference Range Facility [facility] 03-27-2024 CNOV Office Visit (LOORRM ) NEVAEH THOMAS ([id number]) 1945 F Date Time Provider Department 03/27/24 [...] As of Date: 03/27/2024 Noted Allergy Reaction GELSPSQ-RDB-EKP REDUCTASE INHIBIT*02/28/2023 16 - Unknown Date Reviewed: 03/27/2024 Reviewed by: Marcy Estrella DO - Fully Assessed Reason for Visit: Established Patient [175] Right Hip Pain [1554] Primary Visit Diagnosis: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] Other Visit Diagnosis: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 Normal [facility] [place] XR SHLDR >/=3V AP/LAURA AP/OTH R RTon 02-16-2024 XR SHLDR >/=3V AP/LAURA AP/OTHR RT * * *Final Report* * * DATE OF EXAM: Feb 16 2024 1:03PM KEMI 5253 - XR SHLDR >/=3V AP/LAURA AP/OTHR [...] - IMPRESSION: MINIMAL DEGENERATIVE CHANGES RIGHT SHOULDER Counter Cutter: [facility] Transcribe Date/Time: Feb 16 2024 2:48P Dictated by : MEHNAZ LOBATO MD This examination was interpreted and the report reviewed and electronically signed by: MEHNAZ LOBATO MD on Feb 16 2024 2:49PM EST [id number] Normal [facility] [place] XR Shoulder - right 3 Viewso n 02-16-2024 IMPRESSION: MINIMAL DEGENERATIVE CHANGES RIGHT SHOULDER Counter Cutter: [facility] Transcribe Date/Time: Feb 16 2024 2:48P Dictated by : MEHNAZ LOBATO MD This examination was interpreted and the report reviewed and electronically signed by: MEHNAZ LOBATO MD on Feb 16 2024 2:49PM [facility] DIVISION OF RADIOLOGY * * [...] significant abnormality. - DIVISION OF RADIOLOGY Provider, [facility] - 02/16/2024 * * *Final Report* * [...] IMPRESSION IMPRESSION: MINIMAL DEGENERATIVE CHANGES RIGHT SHOULDER Counter Cutter: [facility] Transcribe Date/Time: Feb 16 2024 2:48P Dictated by : MEHNAZ LOBATO MD This examination was interpreted and the report reviewed and electronically signed by: MEHNAZ LOBATO MD on Feb 16 2024 2:49PM EST [facility] Radiology Study observation (narrative) [facility] XR Shoulder - right 3 ViewsO rdered By: [facility] Provider on 02-16-2024 [facility] CNOVon 01-31-2024 CNOV Office Visit (LOORRM ) NEVAEH THOMAS ([id number]) 1945 F Date Time Provider Department 01/31/24 [...] results and radiologist's interpretation, available in the [facility] health record. Images were reviewed with [...] resident/fellow's medical decision making as documented. 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 Normal [facility] [place] XR HIP 3V PELV+ AP/LAT RTon 01-31-2024 [...] lower abdomen. IMPRESSION: Right hip grossly unremarkable. Counter Cutter: [facility] Transcribe Date/Time: Jan 31 2024 2:13P Dictated by : PORFIRIO MURPHY MD This examination was interpreted and the report reviewed and electronically signed by: PORFIRIO MURPHY MD on Jan 31 2024 2:14PM EST [id number] Normal [facility] XR Pelvis and Hip - right AP and Lateral frogon 01-31-2024 IMPRESSION: Right hip grossly unremarkable. Counter Cutter: [facility] Transcribe Date/Time: Jan 31 2024 2:13P [...] the lower abdomen. DIVISION OF RADIOLOGY Provider, [facility] - 01/31/2024 * * *Final Report* * [...] abdomen. IMPRESSION IMPRESSION: Right hip grossly unremarkable. [facility] Trans[facility] Date/Time: Jan 31 2024 2:13P Dictated by : PORFIRIO MURPHY MD This examination was interpreted and the report reviewed and electronically signed by: PORFIRIO MURPHY MD on Jan 31 2024 2:14PM EST [facility] Radiology Study observation (narrative) [facility] XR Pelvis and Hip - right AP and Lateral frogOrdered By: Ccf Provider on 01-31-2024 [facility] CALCIUMon 12-07-2022 Calcium [Mass/Vol] 9.4 mg/dL Normal 8.5-10.1 [facility] Comment on above: Performed By: #### C RONI, [place] #### [facility] [address] [address] [address] Lori Bautista CREATININEon 12-07-2022 Creatinine [Mass/Vol] 0.64 mg/dL Normal 0.55-1.02 [facility] Comment on above: Performed By: #### C R[place], [place] #### [facility] [address] [place] [address] Dr. Lori Bautista EGFR-AF ANDORRAN >60 Normal >=60 [facility] Comment on above: Performed By: #### C RONI, [place] #### [facility] [address] [address] [address] Lori Bautista EGFR-NON AF ANDORRAN >60 Normal >=60 [facility] Comment on above: Performed By: #### C RONI, [place] #### [facility] [address] [place] [address] LUNG CANCER SCREENINGon [...] VERONICA DUNCAN Date: 2022-09-10 14:57 Normal [facility] INSULINon 08-28-2022 Insulin 4.3 uIU/mL Normal 2.6-24.9 [facility] Comment on above: Performed By: #### I NSULIN #### [facility] [address] [place] [address] Dr. Lori Bautista CBC AUTO DIFFon 08-27-2022 BASO # 0.1 103/ul Normal 0.0-0.1 [facility] Comment on above: Performed By: #### C BC #### [facility] [address] [place] [address] Dr. Lori Bautista Basophils/100 WBC (Bld) 0.6 % Normal 0.2-2.0 [facility] Comment on above: Performed By: #### C BC #### [facility] [address] [place] [address] Dr. Lori Bautista EO # 0.1 103/ul Normal 0.0-0.7 [facility] Comment on above: Performed By: #### C BC #### [facility] [address] [place] [address] Dr. Lori Bautista Eosinophils/100 WBC (Bld) 0.6 % Critically low 0.9-7.0 [facility] Comment on above: Performed By: #### C BC #### [facility] [address] [place] [address] Dr. Lori Bautista Erythrocyte distribution width (RBC) [Ratio] 13.2 % Normal 11.0-15.0 [facility] Comment on above: Performed By: #### C BC #### [facility] [address] [place] [address] Dr. Lori Bautista Hematocrit (Bld) [Volume fraction] 41.3 % Normal 36.0-48.0 [facility] Comment on above: Performed By: #### C BC #### [facility] [address] [place] [address] Dr. Lori Bautista Hemoglobin (Bld) [Mass/Vol] 13.5 g/dL Normal 12.0-16.0 [facility] Comment on above: Performed By: #### C BC #### [facility] [address] [place] [address] Dr. Lori Bautista IG # 0.02 10e3/ul Normal 0.00-0.03 [facility] Comment on above: Performed By: #### C BC #### [facility] [address] [place] [address] Dr. Lori Bautista IG % 0.3 % Normal 0.0-0.5 [facility] Comment on above: Performed By: #### C BC #### [facility] [address] [place] [address] Dr. Lori Bautista LYMPH # 2.0 103/ul Normal 1.2-3.8 [facility] Comment on above: Performed By: #### C BC #### [facility] [address] [place] [address] Dr. Lori Bautista Lymphocytes/100 WBC (Bld) 25.6 % Normal 20.5-60.0 [facility] Comment on above: Performed By: #### C BC #### [facility] [address] [place] [address] Dr. Lori Bautisat MANUAL DIFF REQ NO Normal [facility] Comment on above: Performed By: #### C BC #### [facility] [address] [place] [address] Dr. Lori Bautista MCH (RBC) [Entitic mass] 31.1 pg Normal 26.7-34.0 [facility] Comment on above: Performed By: #### C BC #### [facility] [address] [place] [address] Dr. Lori Bautista MCHC (RBC) [Mass/Vol] 32.7 g/dL Normal 29.9-35.2 [facility] Comment on above: Performed By: #### C BC #### [facility] [address] [place] [address] Dr. Lori Bautista MCV (RBC) [Entitic vol] 95.2 fL Normal 81.0-99.0 [facility] Comment on above: Performed By: #### C BC #### [facility] [address] [place] [address] Dr. Lori Bautista MONO # 0.7 103/ul Normal 0.3-0.8 [facility] Comment on above: Performed By: #### C BC #### [facility] [address] [place] [address] Dr. Lori Bautista Monocytes/100 WBC (Bld) 8.4 % Normal 1.7-12.0 [facility] Comment on above: Performed By: #### C BC #### [facility] [address] [place] [address] Dr. Lori Bautista NEUT # 5.0 103/ul Normal 1.4-6.5 [facility] Comment on above: Performed By: #### C BC #### [facility] [address] [place] [address] Dr. Lori Bautista Neutrophils/100 WBC (Bld) 64.5 % Normal 43.0-75.0 [facility] Comment on above: Performed By: #### C BC #### [facility] [address] [place] [address] Dr. Lori Bautista Platelet mean volume (Bld) [Entitic vol] 9.9 fL Normal 9.5-13.5 [facility] Comment on above: Performed By: #### C BC #### [facility] [address] [address] [address] Lori Bautista PLT 310 103/ul Normal 150-450 [facility] Comment on above: Performed By: #### C BC #### [facility] [address] [address] [address] Lori Bautista RBC 4.34 106/ul Normal 4.20-5.40 [facility] Comment on above: Performed By: #### C BC #### [facility] [address] [address] [address] Lori Bautista WBC 7.8 103/ul Normal 4.0-11.0 [facility] Comment on above: Performed By: #### C BC #### [facility] [address] [address] [address] Lori Bautista FREE THYROXINE INDEX T7on FTI 2.26 Normal 1.30-4.50 [facility] Comment on above: Performed By: #### L IPID, TSH, T7, CMP ####[facility] [address] [address]Dr. Lori Bautista T3U 31.0 % Normal 30.0-39.0 [facility] Comment on above: Performed By: #### L IPID, TSH, T7, CMP ####[facility] [address] [id number][address] Lori Bautista T4 [Mass/Vol] 7.30 ug/dL Normal 4.80-13.90 [facility] Comment on above: Performed By: #### L IPID, TSH, T7, CMP ####[facility] [address] [address]Dr. Lori Bautista GLYCOHEMOGLOBIN A1Con 2021 ADA RECOMMENDATION SEE BELOW Normal [facility] Comment on above: Result Comment: ADA RECOMMENDED LIMIT 4.0 - 6.0 ADA THERAPEUTIC TARGET < 7.0 ACTION SUGGESTED > 7.0 Performed By: #### A 1C #### [facility] [address] [place], [place] [address] Dr. Lori Bautista Glucose [Mass/Vol] 117 mg/dL Normal [facility] Comment on above: Performed By: #### A 1C #### [facility] [address] [place], [place] [address] Dr. Lori Bautista HbA1c (Bld) [Mass fraction] 5.7 % Normal 4.5-6.2 [facility] Comment on above: Performed By: #### A 1C #### [facility] [address] [address] [address] Lori Bautista IRONon 08-27-2022 Iron [Mass/Vol] 105.0 ug/dL Normal 50.0-170.0 [facility] Comment on above: Performed By: #### I VANDA KYLE ####[facility] [address] [id number][address] Lori Bautista LIPID PROFILEon 08-27-2022 CHOL-HDL RATIO NORM SEE BELOW Normal [facility] Comment on above: Result Comment: 3.3 - 4.4 LOW RISK 4.4 - 7.1 AVERAGE RISK 7.1 - 11.0 MODERATE RISK >11.0 HIGH RISK Performed By: #### L IPID, TSH, T7, CMP ####[facility] [address] [place], [place] [address]Td. Lori Bautista Cholesterol [Mass/Vol] 186 mg/dL Normal <=200 [facility] Comment on above: Performed By: #### L IPID, TSH, T7, CMP ####[facility] [address] [place], [place] [address]Vg. Lori Bautista Cholesterol in HDL [Mass/Vol] 55 mg/dL Normal 40-60 [facility] Comment on above: Performed By: #### L IPID, TSH, T7, CMP ####[facility] [address] [place], [place] [address]WeClarence Bautista Cholesterol in LDL [Mass/Vol] 116.4 mg/dL Normal [facility] Comment on above: Performed By: #### L IPID, TSH, T7, CMP ####[facility] [address] [place] [id number]. Lori Bautista Cholesterol.total/Ch olesterol in HDL [Mass ratio] 3.4 {ratio} Normal [facility] Comment on above: Performed By: #### L IPID, TSH, T7, CMP ####[facility] [address] [place] [address]Dr. Lori Bautista HDL NORMAL > or = 60 mg/dl - LO W CARDIOVASCULAR RISK <40 mg/dl - HIGH CARDIOVASCULAR RISK Normal [facility] Comment on above: Performed By: #### L IPID, TSH, T7, CMP ####[facility] [address] [place] [address]Dr. Lori Bautista LDL CALC NORMAL SEE BELOW Normal [facility] Comment on above: Result Comment: <100 mg/dl OPTIMAL 100 - 129 mg/dl NEAR OR ABOVE OPTIMAL 130 - 159 mg/dl BORDERLINE HIGH 160 - 189 mg/dl HIGH >190 mg/dl VERY HIGH Performed By: #### L IPID, TSH, T7, CMP ####[facility] [address] [place] [address]Dr. Lori Bautista Triglyceride [Mass/Vol] 73 mg/dL Normal <=150 [facility] Comment on above: Performed By: #### L IPID, TSH, T7, CMP ####[facility] [address] [place] [address]Dr. Lori Bautista VLDL CALC 14.6 mg/dL Normal [facility] Comment on above: Performed By: #### L IPID, TSH, T7, CMP ####[facility] [address] [place] [address]Dr. Lori Bautista PROF 14(COMP METB)on 022 Albumin [Mass/Vol] 3.9 g/dL Normal 3.4-5.0 [facility] Comment on above: Performed By: #### L IPID, TSH, T7, CMP ####[facility] [address] [place] [address]Dr. Lori Bautista Albumin/Globulin [Mass ratio] 1.2 {ratio} Normal [facility] Comment on above: Performed By: #### L IPID, TSH, T7, CMP ####[facility] [address] [place], [place] [address]Dr. Lori Bautista ALP [Catalytic activity/Vol] 68 U/L Normal 46-116 [facility] Comment on above: Performed By: #### L IPID, TSH, T7, CMP ####[facility] [address] [place], [place] [address]Dr. Lori Bautista ALT [Catalytic activity/Vol] 20 U/L Normal 14-59 [facility] Comment on above: Performed By: #### L IPID, TSH, T7, CMP ####[facility] [address] [place], [place] [address]Dr. Lori Bautista Anion gap [Moles/Vol] 8.2 mmol/L Normal [facility] Comment on above: Performed By: #### L IPID, TSH, T7, CMP ####[facility] [address] [place], [place] [address]Dr. Kimcira Bautista AST [Catalytic activity/Vol] 22 U/L Normal 15-37 [facility] Comment on above: Performed By: #### L IPID, TSH, T7, CMP ####[facility] [address] [place], [place] [address]Dr. Lori Bautista Bilirubin [Mass/Vol] 0.3 mg/dL Normal 0.2-1.0 [facility] Comment on above: Performed By: #### L IPID, TSH, T7, CMP ####[facility] [address] [place], [place] [address]Dr. Lori Bautista Calcium [Mass/Vol] 9.2 mg/dL Normal 8.5-10.1 [facility] Comment on above: Performed By: #### L IPID, TSH, T7, CMP ####[facility] [address] [place], [place] [address]Dr. Lori Bautista Chloride [Moles/Vol] 105 mmol/L Normal 98-107 [facility] Comment on above: Performed By: #### L IPID, TSH, T7, CMP ####[facility] [address] [place] [address]Dr. Lori Michele CO2 [Moles/Vol] 30.0 mmol/L Normal 21.0-32.0 [facility] Comment on above: Performed By: #### L IPID, TSH, T7, CMP ####[facility] [address] [place], [place] [address]Dr. Lori Bautista Creatinine [Mass/Vol] 0.67 mg/dL Normal 0.55-1.02 [facility] Comment on above: Performed By: #### L IPID, TSH, T7, CMP ####[facility] [address] [place], [place] [address]Dr. Lori Bautista EGFR-AF ANDORRAN >60 Normal >=60 [facility] Comment on above: Performed By: #### L IPID, TSH, T7, CMP ####[facility] [address] [place], [place] [address]Dr. Lori Bautista EGFR-NON AF ANDORRAN >60 Normal >=60 [facility] Comment on above: Performed By: #### L IPID, TSH, T7, CMP ####[facility] [address] [place], [place] [address]Dr. Lori Bautista Globulin (S) [Mass/Vol] 3.3 g/dL Normal [facility] Comment on above: Performed By: #### L IPID, TSH, T7, CMP ####[facility] [address] [place], [place] [address]Dr. Lori Bautista Glucose [Mass/Vol] 84 mg/dL Normal 74-106 [facility] Comment on above: Performed By: #### L IPID, TSH, T7, CMP ####[facility] [address] [place], [place] [address]Dr. Lori Bautista Potassium [Moles/Vol] 4.2 mmol/L Normal 3.5-5.1 [facility] Comment on above: Performed By: #### L IPID, TSH, T7, CMP ####[facility] [address] [place], [place] [address]Dr. Lori Bautista Protein [Mass/Vol] 7.2 g/dL Normal 6.4-8.2 [facility] Comment on above: Performed By: #### L IPID, TSH, T7, CMP ####[facility] [address] [place] [address]Dr. Lori Bautista Sodium [Moles/Vol] 139 mmol/L Normal 136-145 [facility] Comment on above: Performed By: #### L IPID, TSH, T7, CMP ####[facility] [address] [place], [place] [address]Dr. Lori Bautista Urea nitrogen [Mass/Vol] 18.0 mg/dL Normal 7.0-18.0 [facility] Comment on above: Performed By: #### L IPID, TSH, T7, CMP ####[facility] [address] [place], [place] [address]Dr. Lori Bautista Urea nitrogen/Creatinine [Mass ratio] 26.9 mg/mg Normal [facility] Comment on above: Performed By: #### L IPID, TSH, T7, CMP ####[facility] [address] [place], [place] [address]Dr. Lori Bautista TSHon 08-27-2022 TSH 1.615 uIU/mL Normal 0.358-3.740 [facility] Comment on above: Performed By: #### L IPID, TSH, T7, CMP ####[facility] [address] [place], [place] [address]Dr. Lori Bautista VITAMIN D 25 OHon 08-27-2022 VIT D 25-OH 73.1 ng/mL Normal [facility] Comment on above: Performed By: #### I SAROJ VITAD ####[facility] [address] [place], [place] [address]Dr. Lori Bautista VIT D RANGES SEE BELOW Normal [facility] Comment on above: Result Comment: <20 ng/mL Vit D deficient 20 - <30 ng/mL Vit D insufficient 30 - 100 ng/mL Vit D sufficient >100 ng/mL Potential Toxicity Performed By: #### I SAROJ VITAD ####[facility] [address] [place], [place] [address]Cw. Lori Bautista MG MAMM SCREEN 3D APPLE CADon 08-04-2022 MG MAMM SCREEN 3D APPLE CAD Patient: NEVAEH THOMAS Exam Date: 08/04/2022 : 1945 Gender:F Ordering : DR CATALINA CERVANTES Admission #: [id number] Family : Order #: [id number] CLICK HERE TO VIEW EXAM RADIOLOGY REPORT [...] lung cancer at age 84. LOCATION: [facility] BREAST COMPOSITION: Heterogeneously dense,which may obscure small [...] MD on 08/04/2022 at 13:25 Normal [facility] Covid-19 PCR (CVDTBH)on SARS-CoV-2 (COVID-19) RNA PABLO+probe Ql (Unsp spec) Not detected Normal NOT DETECTED [facility] Comment on above: Result Comment: This test is not yet approved or cleared by the [place] FDA. When there are no FDA-approved or cleared tests available, and other criteria are met, FDA can make tests available under an emergency access mechanism called an Emergency Use Authorization (EUA). The EUA for this test is supported by the [place] of Health and Human Service's (HHS's) declaration [...] consistent with SARS-CoV-2. Performed By: #### C VDTBH #### [facility] [address] [place] [address] [address] Lori Bautista SYMPTOMATIC COVID-19 ANTIGEN on 05-12-2022 EUA Statement SEE BELOW Normal [facility] Comment on above: Result Comment: [...] sooner. Performed By: #### C VDAGS #### [facility] [address] [place] [address] [address] Lori Bautista SARS-CoV-2 (COVID-19) RNA PABLO+probe Ql (Unsp spec) Negative Normal NEGATIVE [facility] Comment on above: Performed By: #### C VDAGS #### [facility] [id number] Lori Bautista CALCIUMon 05-04-2022 Calcium [Mass/Vol] 9.6 mg/dL Normal 8.5-10.1 [facility] Comment on above: Performed By: #### C RONI, [place] ####[facility] [address] [place] [address]Dr. Lori Bautista CREATININEon 05-04-2022 Creatinine [Mass/Vol] 0.68 mg/dL Normal 0.55-1.02 [facility] Comment on above: Performed By: #### LAZARUS LOBO ####[facility] [address] [place], [place] [address]Vn. Lori Bautista EGFR-AF ANDORRAN Normal >=60 [facility] Comment on above: Performed By: #### LAZARUS LOBO ####[facility] [address] [place], [place] [address]Ek. Lori Bautista EGFR-NON AF ANDORRAN Normal >=60 [facility] Comment on above: Performed By: #### LAZARUS LOBO ####[facility] [address] [place], [place] [address]Ef. Lori Bautista XR DEXA BONE DENSITYon 03-29 [...] High Fracture Risk Electronically authenticated by: ABBE WBESTER Date: 2022-03-29 12:43 Normal [facility] XR KUB 1 VIEWon 12-18-2021 XR [...] by: ABBE WEBSTER Date: 2021-12-18 15:43 Normal [facility] Encounters Encounter Date Encounter Type Care Provider Facility Start: 10-02-2024 End: 10-02-2024 Office outpatient new 30 minutes Dariusz Rich DPM Work Phone: [facility] Comment on above: Pain of right foot ( Primary Dx); Plantar keratosis; Right foot pain; Corns and callosities Start: 10-02-2024 End: 10-02-2024 ambulatory DARIUSZ RICH Not Available Start: 03-27-2024 End: 03-27-2024 ambulatory [facility] Facility:[facility] Start: 03-27-2024 End: 03-27-2024 Patient encounter procedure Marcy Estrella DO Work Phone: Orthopaedics Comment on above: Tendinopathy of righ t rotator cuff (Primary Dx); Degenerative tear of acetabular labrum Start: 03-05-2024 End: 03-05-2024 ambulatory [facility] Facility:[facility] Start: 03-05-2024 End: 03-05-2024 Patient encounter [...] End: 02-16-2024 Subsequent hospital visit by physician Xr Kolczun 1 Work Phone: Radiology Comment on above: Acute pain of right shoulder [M25.511] Start: 01-31-2024 End: 01-31-2024 ambulatory LONI COVARRUBIAS Facility:[facility] Start: 01-31-2024 End: 01-31-2024 Patient encounter [...] DTaP,Tdap,Td Vaccine (3 - Td or Tdap) [facility] Start: 02-23-2026 OCT MACULA CIRRUS OU (BOTH EYES) OCT MACULA CIRRUS OU (BOTH EYES) [facility] Imaging Routine 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 Work Phone: Comment on above: Expected: 02/17/2025 Start: 07-08-2024 Covid-19 Vaccine ( season) Covid-19 Vaccine ( season) [facility] Start: 07-08-2024 Influenza vaccination C [facility] Start: 05-27-2024 Diabetes Screening Diabetes Screenin g [facility] Start: 03-27-2024 End: 03-27-2024 Patient encounter procedure 03/27/2024 1:15 PM EDT Office Visit Orthopaedics [address] [place] [address] Marcy Estrella DO [address] [place] [address] 8 week right hip pain Orthopaedics Comment on above: 8 week right hip dave n Start: 11-07-2023 Advance Directive Discussion Advance Directive Discussion [facility] Start: 11-07-2023 Behavioral Health Screening Behavioral Health Screening [facility] Start: 11-07-2023 Depression Assessment Depression Ass essment [facility] Start: 07-08-2023 Covid-19 Vaccine () Covid-19 Vaccine () [facility] Start: 07-08-2023 Influenza vaccination Influenza Vacc ine (#1) [facility] Start: 11-07-2022 ADVANCE DIRECTIVE DISCUSSION ADVANCE DIRECTIVE DISCUSSION [facility] Start: 11-07-2022 DEPRESSION ASSESSMENT DEPRESSION ASS ESSMENT [facility] Start: 05-03-2022 COVID-19 VACCINE (4 - Booster for Pfizer series) COVID-19 VACCINE (4 - Booster for Pfizer series) [facility] Start: 02-11-2012 BONE DENSITY BONE DENSITY [facility] Start: 02-11-2012 Screening for osteoporosis Bone Density Screening [facility] Start: 2007 RSV Vaccine (1 - 1-dose 60+ series) RSV Vaccine (1 - 1-dose 60+ series) [facility] Start: 1997 Influenza vaccination LUNG CANCER [facility] Start: 1997 Screening for malignant neoplasm of lung Lung Cancer Screening [facility] Start: 1997 SHINGRIX VACCINE (1 of 2) SHINGRIX VACCINE (1 of 2) [facility] Start: 02-11-1992 DIABETES SCREEN DIABETES SCREEN [facility] Start: 1966 Urine microalbumin profile DTAP,TDAP,TD (1 - Tdap) [facility] Start: 1965 ANNUAL PCP TEAM CHRONIC DISEASE VISIT ANNUAL PCP TEAM CHRONIC DISEASE VISIT [facility] Start: 1965 Anxiety Screening Anxiety Screening [facility] Start: 1965 Depression Screening Depression Scre ening [facility] Start: 1965 HEPATITIS C SCREENING HEPATITIS C [facility] Start: 1965 Hepatitis C screening Hepatitis C [facility] Start: 1965 SPIROMETRY SPIROMETRY [facility] Start: 1953 PNEUMOCOCCAL: 65+ (1 - PCV) PNEUMOCOCCAL: 65+ (1 - PCV) [facility] OCT MACULA CIRRUS OU (BOTH EYES) OCT MACULA CIRRUS OU (BOTH EYES) [facility] Imaging Routine 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 Work Phone: [facility] Immunizations Immunization Date Immunization Notes Care Provider Lulu diaz 08-07-2022 influenza virus vacc ine, unspecified formulation Marcy Estrella DO Work Phone: [facility] Payers Date Payer Category Payer Medicare (Managed Care) [employer] Member Subscriber Plan / Payer (Effective 2023-Present) Name: Nevaeh Thomas Relation to Subscriber: Self Name: Nevaeh Thomas Payer ID: Not on file Group ID: [id number] Type: Not on file Address: [facility] [address] [place] [id number] 2020 Unknown [id number] 1959 Unknown [id number] 1945 Unknown [id number] .2.593 1945 Unknown [id number] .2.593 1945 Unknown [id number] .2.593 1945 Unknown [id number] .2.593 1945 Unknown [id number] .2.593 1945 Unknown [id number] [id number] .2.593 1945 Unknown [id number] [id number] .2.593 1945 Unknown [id number] [id number] .2.593 1945 Unknown [id number] .2.1259 Social History Date Type Detail Facility Start: 11-12-2020 End: 10-02-2024 Tobacco smoking status NHIS Smokes tobacco daily [facility] Work Phone: History of tobacco use Cigarette Smoker C [facility] Work Phone: Start: 11-12-2020 End: 10-02-2024 Cigarettes smoked current (pack per day) - Reported 1 [facility] Start: 11-12-2020 End: 10-02-2024 Tobacco use and exposure Smokeless tobacco non-user [facility] Work Phone: Start: 02-28-2023 End: 03-05-2024 Alcohol intake Lifetime non-drinker (finding) [facility] Start: 09-09-2020 History SDOH Alcohol Frequency 1 [facility] Start: 1945 Sex Assigned At Female [facility] Start: 09-09-2020 End: 10-02-2024 Alcohol Use Disorder Identification Test - Consumption [AUDIT-C] [facility] How often to you hav e a drink containing alcohol? Never [facility] Average Number of Drinks Not on file [facility] Start: 09-08-2020 Gender identity Identifies as female gender (finding) [facility] Start: 09-08-2020 Sexual orientation Heterosexual (finding) [facility] Start: 10-02-2024 Alcoholic beverage intake Ex-drinker (finding) [facility] Procedure Code Equipment Code Equipment Origin al Text Equipment Identifier Dates Lens Iol 0d +15 Derik Uv Abs - [id number] Start: 11-19-2020 Comment on above: Description: -0.26 Lens Iol 0d +15 Derik Uv Abs - [id number] Start: 12-03-2020 Comment on above: Description: -0.33 Clinical Notes 02-28-2023 to 10-02-2024 Dariusz Rich, DPM - 10/02/2024 1:30 PM Marcy Holman, DO - 03/27/2024 1:06 PM Catalino Owens, OD - 03/05/2024 5:03 PM Di Judy Glover, RT(R) - 02/16/2024 1:02 PM EDT Note Date & Type Note Facility 10-02-2024 History of Present illness Narrative Reason for Appointment New Patient: RT plantar foot 1st MPJ region painful callus History of Present Illness NEW patient presents for painful callus to the RT plantar foot 1st MPJ region. Painful callus has been present for about a month or so. Pain is mild when she is wearing shoes however pain increases when she is barefoot. Patient has not attempted any treatment. PCP: Dr. Marci Lozano last seen: Review of Systems General: Chills denies. Fatigue denies. Fever denies. Night sweats denies. Endocrine: Hyperpigmentation denies. Diabetes denies. Weakness denies. Cardiovascular: Chest pain denies. Shortness of breath denies. Gastrointestinal: Constipation denies. Diarrhea denies. Nausea denies. Vomiting denies. Hematology: Anemia denies. Bleeding problems denies. Easy bruising denies. Musculoskeletal: Bone/joint symptoms denies. Leg cramps denies. Peripheral Vascular: Edema denies. Rest pain denies. Varicose veins denies. Raynaud's denies. Skin: Ulceration denies. Nail changes denies. Rash denies. Skin lesion(s) denies. Neurologic: Dizziness denies. Gait abnormality denies. Headache denies. Tingling/Numbness denies. Examination General Examination: GENERAL APPEARANCE: awake, aware of surroundings, in no acute distress. Patient was is present through examination. Vascular: DORSALIS PEDIS PULSE: 2/4, bilaterally. POSTERIOR TIBIAL PULSE: 2/4, bilaterally. TEMPERATURE GRADIENT: warm to cool. EDEMA: none. CAPILLARY FILLING TIME(sec): capillary fill intact bilateral digits less than 3 secs. Neurologic: VIBRATORY: normal. SEMMES-JAKE 5.07 MONOFILAMENT: normal. Dermatologic: SKIN FINDINGS: texture, turgor, hair growth, within normal limits. HYPERKERATOSIS: painful callus/ intractable plantar keratosis plantar right foot 1st MPJ right much greater than left. No sign of infection. No sign of foreign body the patient thought she may have had a piece of glass in her foot in that location however none was found after debridement. NAIL PATHOLOGY: digits 1-5 bilateral are intact. Ankle / Foot: RANGE OF MOTION: reduced motion right second toe PIPJ/DIPJ. MUSCLE STRENGTH: 5/5. Orthopedic: JOINT RANGE OF MOTION: Normal, except right second hammertoe mildly contracted. DEFORMITIES: right second hammertoe mildly contracted. Atrophy bilateral foot, mild hallux abductovalgus bilaterally, hammertoes are mildly contracted. PAIN ELICITED WITH PALPATION OF: right second hammertoe Rubs against hallux PAIN ELICITED WITH ROM: none. Imaging Studies: ANKLE X-RAY: deferred. FOOT X-RAY: deferred. Assessments Plantar keratosis plantar foot 1st MPJ - painful Right foot pain sub 1st MPJ Callus - L84, painful callus Plantar right foot 1st MPJ greater than left Hammertoe - M20.40, painful callus distal right second toe hammertoe deformity Treatment 1. Patient seen today for original office visit. Physical examination was performed. 2. Patient was evaluated and advised of her diagnoses. I perform manual and mechanical debridement of thickened hyperkeratosis/plantar keratosis / callus of the right foot 1st metatarsophalangeal joint plantar aspect. Debridement revealed no sign of foreign body / glass or infection or drainage. Patient had stepped on a piece of glass in the distant past as it was uncertain if there was any glass remaining in her foot. None was found. 3. Patient was advised that we may have to proceed with topical salicylic acid or surgical excision in the future versus debridement if this area of pain would return which is a high likelihood. 4. Patient was advised to wear soft padded shoes for all weight-bearing to cushion that Randal as she has no pain while walking with shoes intact, only barefoot. 5. Patient was dispensed silicone toe spacer between right toes 1 and 2 as well as tube foam to be applied of the right 2nd toe. She should alternate both of these until she feels which pad feels best to reduce pressure between toes 1 and 2. She was advised that potential pressure could be due pain, skin pathology including ulcerations or infection. 6. Reappoint p.r.n. documented in this encounter [facility] 03-27-2024 Note HNO ID: [id number] Author: MARCY ESTRELLA DO Service: ? Author [...] needed Procedures Marcy Estrella DO [facility] [place] 03-27-2024 History of Present illness Narrative Nevaeh [...] Marcy Estrella DO documented in this encounter [facility] 03-05-2024 Note HNO ID: [id number] Author: CATALINO LONDON OD Service: ? Author Type: BREAKER MACHINE TENDER Type: Progress Notes Filed: 03/05/2024 17:08 Note Text: Documentation transcribed from Paper notes from [facility] ASSESSMENT/PLAN: 1. Keratoconjunctivitis sicca of both eyes [...] March 05, 2024 5:03 PM [facility] [place] 03-05-2024 History of Present illness Narrative Documentation transcribed from Paper notes from [facility] ASSESSMENT/PLAN: 1. Keratoconjunctivitis sicca of both eyes [...] 2024 5:03 PM documented in this encounter [facility] 02-16-2024 Note HNO ID: [id number] Author: JUDY LOPEZ RT(R) Service: ? Author [...] PATIENT PRESENTS WITH AN IMPLANTABLE OR ATTACHED WELLNESS COORDINATOR: No RADIOLOGY DEPARTMENT: General X-ray: Exam(s) Completed: Upper Extremity X-Ray(s): Shoulder, AP / TRUE AP / AXILLARY right PERIPHERAL IV DATA: Not applicable SIGNED BY: RT Anthony(R) February 16, 2024 1:02 PM [facility] 02-16-2024 Note HNO ID: [id number] Author: MARCY ESTRELLA DO Service: ? Author [...] Frequency: Continuous Intervention/Comfort measure: Medication Comments: Fiona Leo is a this is a 79-year-old female [...] results and radiologist's interpretation, available in the [facility] health record. Images were reviewed with [...] resident/fellow's medical decision making as documented. Marcy D Estrella, DO [facility] 02-16-2024 History of Present illness Narrative Radiology [...] PATIENT PRESENTS WITH AN IMPLANTABLE OR ATTACHED WELLNESS COORDINATOR: No RADIOLOGY DEPARTMENT: General X-ray: Exam(s) Completed: Upper Extremity X-Ray(s): Shoulder, AP / TRUE AP / AXILLARY right PERIPHERAL IV DATA: Not applicable SIGNED BY: RT Anthony(R) February 16, 2024 1:02 PM documented in this encounter [facility] 02-16-2024 History of Present illness Narrative [...] Months Frequency: Continuous Intervention/Comfort measure: Medication Comments: Naprosyn This is a this is a 79-year-old [...] results and radiologist's interpretation, available in the [facility] health record. Images were reviewed with [...] Marcy Estrella DO documented in this encounter [facility] 01-31-2024 Note HNO ID: [id number] Author: MARCY ESTRELLA, DO Service: ? Author [...] results and radiologist's interpretation, available in the [facility] health record. Images were reviewed with [...] as documented. Marcy Estrella DO [facility] 01-31-2024 Note HNO ID: [id number] Author: MARTHA CROOKS RT(R) Service: ? Author [...] PATIENT PRESENTS WITH AN IMPLANTABLE OR ATTACHED WELLNESS COORDINATOR: No RADIOLOGY DEPARTMENT: General X-ray: Exam(s) Completed: Pelvis X-Ray: Pelvis with Hip Right PERIPHERAL IV DATA: Not applicable SIGNED BY: RT Elisa(R) January 31, 2024 2:01 PM [facility] 01-31-2024 History of Present illness Narrative Images [...] results and radiologist's interpretation, available in the [facility] health record. Images were reviewed with [...] Marcy Estrella DO documented in this encounter [facility] 02-28-2023 History of Present illness Narrative [...] 2023 1:19 PM documented in this encounter [facility] Evaluation note Diagnosis Vitreous degeneration, bilateral- Primary Floaters in visual field, bilateral Keratoconjunctivitis sicca of both eyes not specified as Sjogren's Keratoconjunctivitis sicca, not specified as Sjogren's SPK (superficial punctate keratitis), bilateral Pseudophakia of both eyes Lens replaced by other means Retinal pigment epithelial mottling of macula Other retinal disorders 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 [facility] Degenerative tear of acetabular labrum- Primary Pain in right hip Pain in joint, pelvic region and thigh Primary osteoarthritis of right hip Primary localized osteoarthrosis, pelvic region and thigh [facility] Tendinopathy of right rotator cuff- Primary Impingement syndrome of right shoulder Other affections of shoulder region, not elsewhere classified [facility] Diagnosis Keratoconjunctivitis sicca of both eyes not specified as Sjogren's- Primary Keratoconjunctivitis sicca, not specified as Sjogren's Retinal pigment epithelial mottling of macula Other retinal disorders 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, bilateral Pseudophakia of both eyes Lens replaced by other means [facility] Tendinopathy of right rotator cuff- Primary Degenerative tear of acetabular labrum documented in this encounter [facility] note* Diagnosis Preop examination- Primary Preoperative examination, unspecified Combined forms of age-related cataract of both eyes Other and combined forms of senile cataract Chronic obstructive pulmonary disease, unspecified COPD type (HCC) Gastroesophageal reflux disease, unspecified whether esophagitis present Hyperlipidemia, unspecified hyperlipidemia type Tobacco abuse Tobacco use disorder Acute pain of right shoulder documented in this encounter [facility] note* Diagnosis Preop examination- Primary Preoperative examination, unspecified Combined forms of age-related cataract of both eyes Other and combined forms of senile cataract Chronic obstructive pulmonary disease, unspecified COPD type (HCC) Gastroesophageal reflux disease, unspecified whether esophagitis present Hyperlipidemia, unspecified hyperlipidemia type Tobacco abuse Tobacco use disorder Pain Generalized pain documented in this encounter [facility] note* Diagnosis Pain of right foot- Primary Plantar keratosis Right foot pain Pain in soft tissues of limb Corns and callosities documented in this encounter [facility] for referral (narrative)* Diagnostic Procedure Only (Routine) - Closed Specialty Diagnoses / Procedures Referred By Contac t Referred To Contact XR IMAGING Diagnoses Acute pain of right shoulder Procedures XR SHOULDER GENERAL 3V OR MORE AP/TRUE AP/OTHER RIGHT RADEX SHOULDER COMPLETE MINIMUM 2 VIEWS Marcy Estrella DO [address] [place] [address] [place] [address] Referral ID Status Reason Start Date Expiration Date V isits Requested Visits Authorized [id number] Closed Auto-Generate d Referral 02/07/2024 03/08/2025 1 1 [facility] for referral (narrative)* Diagnostic Procedure Only (Routine) - Closed Specialty Diagnoses / Procedures Referred By Contac t Referred To Contact XR IMAGING Diagnoses Pain Procedures XR HIP GENERAL 3V PELV/AP/LAT RIGHT RADEX HIP UNILATERAL WITH PELVIS 2-3 VIEWS Marcy Estrella DO [address] [place] [address] [place] [address] Referral ID Status Reason Start Date Expiration Date V isits Requested Visits Authorized [id number] Closed Auto-Generate d Referral 01/24/2024 02/22/2025 1 1 [facility] for visit Narrative* Diagnostic Procedure Only (Routine) - Closed Specialty Diagnoses / Procedures Referred By Contac t Referred To Contact XR IMAGING Diagnoses Acute pain of right shoulder Procedures XR SHOULDER GENERAL 3V OR MORE AP/TRUE AP/OTHER RIGHT RADEX SHOULDER COMPLETE MINIMUM 2 VIEWS Marcy Estrella, DO [address] [place] [address] [place] [address] Referral ID Status Reason Start Date Expiration Date V isits Requested Visits Authorized [id number] Closed Auto-Generate d Referral 02/07/2024 03/08/2025 1 1 [facility] for visit Narrative* Diagnostic Procedure Only (Routine) - Closed Specialty Diagnoses / Procedures Referred By Contac t Referred To Contact XR IMAGING Diagnoses Pain Procedures XR HIP GENERAL 3V PELV/AP/LAT RIGHT RADEX HIP UNILATERAL WITH PELVIS 2-3 VIEWS Marcy Estrella, DO [address] [place] [address] [place] [address] Referral ID Status Reason Start Date Expiration Date V isits Requested Visits Authorized [id number] Closed Auto-Generate d Referral 01/24/2024 02/22/2025 1 1 [facility] Summary Purpose Family History No Family History Records FoundNo Family History Records FoundNo Family History Records Found Advance Directives No Advanced Directives Records FoundNo Advanced Directives Records FoundNo Advanced Directives Records [...] Referral Specialty Diagnoses / Procedures Referred By Contac t Referred To Contact [facility] Diagnoses Pain in right hip Procedures CONSULT TO PHYSICAL THERAPY PHYSICAL THERAPY EVALUATION HIGH COMPLEX 45 MINS Marcy Estrella, DO [address] [place] [address] [facility] [address] [address] Referral ID Status Reason Start Date Expiration Date Visits Requested Visits Authorized [id number] Pending Review Auto-Generat ed Referral 01/31/2024 01/30/2025 1 1 Specialty Diagnoses / Procedures Referred By Milagros maxwell Referred To Contact [facility] Diagnoses Tendinopathy of right rotator cuff Impingement syndrome of right shoulder Procedures CONSULT TO PHYSICAL THERAPY PHYSICAL THERAPY EVALUATION HIGH COMPLEX 45 MINS Marcy Estrella, DO [address] [place] [address] [facility] [address] [address] Referral ID Status Reason Start Date Expiration Date Visits Requested Visits Authorized [id number] Pending Review Auto-Generat ed Referral 02/16/2024 02/15/2025 1 1 Additional Source Comments INFORMATION SOURCE (unrecogn ized section and content) DATE CREATED AUTHOR 12/07/2022 [facility] DATE CREATED AUTHOR AUTHOR'S ORGANIZ ATION 03/29/2024 [facility] DATE CREATED AUTHOR AUTHOR'S ORGANIZ ATION 10/05/2024 [facility] EPIC Source Comments (unrecognize d section and content) In the event this informatio n is protected by the Federal Confidentiality of Alcohol and Drug Abuse Patient Records regulations: The Federal rules restrict any use of the information to criminally investigate or prosecute any alcohol or drug abuse patient.[facility] the event this information is protected by the Federal Confidentiality of Alcohol and Drug Abuse Patient Records regulations: The Federal rules restrict any use of the information to criminally investigate or prosecute any alcohol or drug abuse patient.[facility] the event this information is protected by the Federal Confidentiality of Alcohol and Drug Abuse Patient Records regulations: The Federal rules restrict any use of the information to criminally investigate or prosecute any alcohol or drug abuse patient.[facility] the event this information is protected by the Federal Confidentiality of Alcohol and Drug Abuse Patient Records regulations: The Federal rules restrict any use of the information to criminally investigate or prosecute any alcohol or drug abuse patient.[facility] the event this information is protected by the Federal Confidentiality of Alcohol and Drug Abuse Patient Records regulations: The Federal rules restrict any use of the information to criminally investigate or prosecute any alcohol or drug abuse patient.[facility] the event this information is protected by the Federal Confidentiality of Alcohol and Drug Abuse Patient Records regulations: The Federal rules restrict any use of the information to criminally investigate or prosecute any alcohol or drug abuse patient.[facility] the event this information is protected by the Federal Confidentiality of Alcohol and Drug Abuse Patient Records regulations: The Federal rules restrict any use of the information to criminally investigate or prosecute any alcohol or drug abuse patient.[facility] the event this information is protected by the Federal Confidentiality of Alcohol and Drug Abuse Patient Records regulations: The Federal rules restrict any use of the information to criminally investigate or prosecute any alcohol or drug abuse patient.[facility] Reason for Visit (unrecogniz ed section and content) Reason Comments Yearly Exam Floaters Both Eyes Reason Comments New Right Hip Pain Reason Comments Radiology XR Reason Comments New Pain (Shoulder Pain) Reason Comments Dry Eye(s) Both Eyes Vitreous Degeneration (Pvd) Reason Comments Established Patient Right Hip Pain Care Teams (unrecognized sec tion and content) Machine Programmer Relationship Specialty Start Date End Date Loni Covarrubias MD PCP - General Family Medicine 08/31/10 Machine Programmer Relationship Specialty Start Date End Date Loni Covarrubias MD PCP - General Family Medicine 08/31/10 Machine Programmer Relationship Specialty Start Date End Date Loni Covarrubias MD PCP - General Family Medicine 08/31/10 Machine Programmer Relationship Specialty Start Date End Date Loni Covarrubias MD PCP - General Family Medicine 08/31/10 Machine Programmer Relationship Specialty Start Date End Date Loni Covarrubias MD PCP - General Family Medicine 08/31/10 Machine Programmer Relationship Specialty Start Date End Date Loni Covarrubias MD PCP - General Family Medicine 08/31/10 Machine Programmer Relationship Specialty Start Date End Date Loni Covarrubias MD PCP - General Family Medicine 08/31/10 Machine Programmer Relationship Specialty Start Date End Date Loni Covarrubias MD PCP - General Family Medicine 08/31/10 Machine Programmer Relationship Specialty Start Date End Date Loni Covarrubias MD [address] [place] [id number] PCP - General Family Medicine 10/02/24 FOR RECORDS PERTAINING TO PATIENTS WHO ARE [...] BE BASED ON THE PRIMARY CLINICAL RECORDS. [email or web address] provides no warranty or guarantee of the accuracy or completeness of information in this document.
--- NOTE | 2024-11-05 19:20 | ED.SOB1 ---
HPI - SOB/Dyspnea General Chief Complaint: Shortness of Breath/Dyspnea Stated Complaint: SOB Time Seen by Provider: 11/05/24 19:11 Mode of arrival: walk-in Limitations: no limitations History of Present Illness HPI Narrative: This 79-year-old female with history of COPD who still smokes cigarettes presents for evaluation of 1 day of increasing shortness of breath. The patient has been using her albuterol inhaler with minimal improvement. She has not had any fevers or chills. She does have a productive cough. She states she has a little bit of chest pain. She denies any abdominal pain or back pain. She denies any dizziness or syncope. She states her symptoms started this morning upon awakening. She denies any lower extremity pain or swelling. She is not on any blood thinners. She denies any sore throat or nasal congestion. Related Data Home Medications ?Medication ?Instructions ?Recorded ?Confirmed B-12 Plus 1,000 mcg PO DAILY 11/05/24 11/05/24 ascorbic acid (vitamin C) 500 mg 500 mg PO DAILY 11/05/24 11/05/24 tablet (C-500) aspirin 81 mg chewable tablet 81 mg PO DAILY 11/05/24 11/05/24 biotin 2,500 mcg capsule 2,500 mcg PO DAILY 11/05/24 11/05/24 calcium citrate-vitamin D3 1 tab PO DAILY 11/05/24 11/05/24 denosumab 60 mg/mL subcutaneous mg subcut .every 6 months 11/05/24 syringe (Prolia) docusate sodium 100 mg capsule 100 mg PO DAILY 11/05/24 11/05/24 (Col-Rite) ezetimibe 10 mg tablet (Zetia) 10 mg PO DAILY 11/05/24 11/05/24 fluticasone furoate 100 1 inh inhalation DAILY 11/05/24 11/05/24 mcg-vilanterol 25 mcg/dose inhalation powder (Breo Ellipta) gabapentin 100 mg capsule 100 mg PO DAILY 11/05/24 11/05/24 (Neurontin) gemfibrozil 600 mg tablet (Lopid) 600 mg PO BID 11/05/24 11/05/24 glucosamine sulf dipot cap PO DAILY 11/05/24 chlr,msm,chond 550 mg-C 30 mg-bettye 1 mg capsule (Glucosamine Chondroitin) multivitamin (Daily Multi-Vitamin 1 tab PO DAILY 11/05/24 11/05/24 tablet) omega-3 300 mg-dha 120 mg-epa 180 1 cap PO DAILY 11/05/24 11/05/24 mg-fish oil 1,000 mg capsule pantoprazole 40 mg tablet,delayed 40 mg PO DAILY 11/05/24 11/05/24 release (Protonix) simethicone 125 mg capsule (Gas 125 mg PO DAILY 11/05/24 11/05/24 Relief (simethicone)) vitamin E 268 mg (400 unit) capsule 268 mg PO DAILY 11/05/24 11/05/24 Previous Rx's ?Medication ?Instructions ?Recorded benzonatate 100 mg capsule 100 mg PO TID PRN cough #30 caps 11/08/23 prednisone 10 mg tablet See Rx Instructions .Route 11/08/23 .COMPLEX #30 tabs Allergies Allergy/AdvReac Type Severity Reaction Status Date / Time No Known Drug Allergies Allergy Verified 11/05/24 19:09 Review of Systems ROS Status of ROS 10 or more systems reviewed and unremarkable except as noted in history and below [facility] Social History Smoking status: Heavy tobacco smoker Little interest or pleasure in doing things: not at all Feeling down, depressed, or hopeless: not at all Exam Narrative Exam Narrative: Vital signs and Nursing Notes reviewed: Patient is afebrile, she is tachycardic and borderline hypoxic with pulse ox of 93% on room air General: Awake, alert, oriented, no acute distress, lying comfortably on the stretcher HEENT: Normocephalic atraumatic, mucous membranes are moist and pink, eyes are clear, normal conjunctiva, vision is grossly intact, posterior pharynx is normal in appearance. Neck: Supple, no meningeal signs, no anterior or posterior cervical lymphadenopathy Chest: Faint expiratory wheezing in all lung valadez without accessory muscle use. Patient is speaking complete sentences, also ox 93 upon arrival CVS: Regular rate and rhythm, tachycardic in the 140s upon arrival, no murmurs rubs or gallops, pulses are brisk and equal bilaterally ABD: Soft, nondistended, nontender, no rebound guarding or rigidity, bowel sounds are normal, no pulsatile masses appreciated Extremities: Moving all extremities, no lower extremity tenderness or swelling noted, negative Homans' sign, pulses are brisk and equal bilaterally Skin: Normal in appearance without rash,pallor, petechiae or purpura Neuro: No focal deficits Constitutional Vital Signs, click to edit/add: Last Vital Signs Temp 99.5 F 11/05/24 19:06 Pulse 116 H 11/05/24 21:00 Resp 24 H 11/05/24 21:00 BP 135/61 11/05/24 21:00 Pulse Ox 95 11/05/24 21:00 O2 Del Method Room Air 11/05/24 19:49 Course Vital Signs Vital signs: Vital Signs Temperature 99.5 F 11/05/24 19:06 Pulse Rate 142 H 11/05/24 19:06 Respiratory Rate 20 11/05/24 19:06 Blood Pressure 127/71 11/05/24 19:06 Pulse Oximetry 93 L 11/05/24 19:06 Oxygen Delivery Method Room Air 11/05/24 19:06 Temperature 99.5 F 11/05/24 19:06 Pulse Rate 116 H 11/05/24 21:00 Respiratory Rate 24 H 11/05/24 21:00 Blood Pressure 135/61 11/05/24 21:00 Pulse Oximetry 95 11/05/24 21:00 Oxygen Delivery Method Room Air 11/05/24 19:49 MDM - SOB/Dyspnea MDM Narrative Medical decision making narrative: This 79-year-old female with a history of COPD and tobacco use presents for evaluation of cough, wheezing and shortness of breath that started earlier today. She denies any kayli chest pain. She has not had any dizziness or syncope. She has no abdominal pain nausea vomiting or diarrhea. She did use her albuterol inhaler earlier in the day without significant improvement. Upon arrival she was noted to be markedly tachycardic with a pulse as high as the 140s. An IV was placed and a septic workup was ordered including CBC with differential, comprehensive metabolic profile, lactic acid, D-dimer, troponin, blood cultures, influenza COVID-19 and RSV. She is positive for influenza A. She is negative for COVID-19 and RSV. Her white count is mildly elevated 11.5 with a stable hemoglobin. Electrolytes are normal. Liver function tests are normal. Lactic acid is normal at 1. Blood cultures are pending at this time. Troponin and D-dimer are both normal. BNP is normal. She was given a DuoNeb treatment as well as IV fluids, Tylenol for the fever and Solu-Medrol. EKG done upon arrival was a rapid atrial rhythm at 130 bpm with a right axis deviation. In light of the normal D-dimer 2 view chest x-ray was ordered and reviewed by myself. I do not see any acute pulmonary infiltrate or sign of pneumonia, pneumothorax or abnormal bony structures. She has remained hemodynamically stable in the emergency department with tachycardia that responded to IV fluids and Tylenol. She does desat into the high 80s and low 90s when she is resting and after falling asleep. She does not wear home oxygen and does not have oxygen at home. The results of her labs x-ray and vital signs were discussed with the patient and she is agreeable to hospitalization. The case was discussed with the hospitalist service and she is excepted for admission to [facility], observation status Differential Diagnosis Differential diagnosis: Likely acute exacerbation of chronic obstructive airways disease, congestive heart failure, community acquired pneumonia, asthma with exacerbation and pulmonary embolism Medical Records Attestation: I reviewed the patient's medical records. Medical records narrative: [place] [address] XRay Report Signed Patient: MIYA THOMAS MR#: [id number] : 1945 Acct:[id number] Age/Sex: 79 / F ADM Date: 11/05/24 Loc: ER Attending Dr: Ordering Physician: Gail Akhtar Date of Service: 11/05/24 Procedure(s): XR chest 2V Accession Number(s): [id number] cc: Dileep Covarrubias M.D.; Gail Akhtar~ [facility] [place] [id number] Patient Name: MIYA THOMAS MRN: [id number] date: 1945 Sex: F Assigned Patient Location: ER Current Patient Location: ED.MAIN Accession/Order Number: [id number] Exam Date: 11/05/2024 20:25 Report Date: 11/05/2024 21:30 At the request of: GAIL AKHTAR Procedure: XR chest 2V EXAMINATION: XR chest 2V HISTORY: SOB, hx copd + influenza COMPARISON: XR chest 04/13/2024 FINDINGS: LUNGS: No significant pulmonary parenchymal abnormalities. VASCULATURE: No increased pulmonary vasculature. PLEURA: No pneumothorax, effusion, or pleural thickening. CARDIAC: No cardiomegaly or cardiac silhouette abnormality. MEDIASTINUM: No visible mass or adenopathy. BONES: No fracture or visible bone lesion. OTHER: Negative. XR/XR chest 2V IMPRESSION: 1. Slightly hyperexpanded lungs. 2. No acute cardiopulmonary process. Electronically authenticated by: ABBE WEBSTER Date: 11/05/2024 21:30 Lab Data Attestation: I reviewed the patient's lab results. Labs: Lab Results 11/05/24 11/05/24 Range/Units 19:12 19:15 WBC 11.5 H (4.0-11.0) 10^3/uL RBC 4.70 (4.20-5.40) 10^6/uL Hgb 14.7 (12.0-16.0) g/dL Hct 44.1 (36.0-48.0) % MCV 93.8 (81.0-99.0) fL MCH 31.3 (26.7-34.0) pg MCHC 33.3 (29.9-35.2) g/dL RDW 13.1 (11.0-15.0) % Plt Count 219 (150-450) 10^3/uL MPV 10.1 (9.5-13.5) fL Seg Neuts % (Manual) 92.0 H (43.0-75.0) Lymphocytes % (Manual) 0.0 L (20.5-60.0) % Atypical Lymphs % (Man) 1.0 % Monocytes % (Manual) 7.0 (1.7-12.0) % Eosinophils % (Manual) 0.0 L (0.9-7.0) % Basophils % (Manual) 0.0 L (0.2-2.0) % Neutrophils # (Manual) 10.58 H (1.4-6.5) 10^3/uL Lymphocytes # (Manual) 0.00 L (1.20-3.80) 10^3/uL Abs Atypical Lymphs Man 0.11 Monocytes # (Manual) 0.80 (0.30-0.80) 10^3/uL Eosinophils # (Manual) 0.00 (0.00-0.70) 10^3/uL Basophils # (Manual) 0.00 (0.00-0.10) 10^3/uL PT 10.5 (9.0-11.6) sec INR 0.99 D-Dimer 0.45 (<=0.59) mg/L FEU Sodium 136 (136-145) mmol/L Potassium 3.5 (3.5-5.1) mmol/L Chloride 101 (98-107) mmol/L Carbon Dioxide 27.7 (21.0-32.0) mmol/L Anion Gap 10.8 BUN 16.0 (7.0-18.0) mg/dL Creatinine 0.70 (0.55-1.02) mg/dL Est GFR ( Amer) >60 (>=60 mL/min/1.73m^2) Est GFR (Non-Af Amer) >60 (>=60 mL/min/1.73m^2) BUN/Creatinine Ratio 22.9 Glucose 103 (74-106) mg/dL Lactate 1.0 (0.4-2.0) mmol/L Calcium 8.9 (8.5-10.1) mg/dL Magnesium 1.6 L (1.8-2.4) mg/dL Total Bilirubin 0.5 (0.2-1.0) mg/dL AST 26 (15-37) U/L ALT 18 (14-59) U/L Alkaline Phosphatase 82 (46-116) U/L Troponin I High Sens 14.0 (4.0-51.3) pg/mL NT-Pro-B Natriuret Pep 1201.0 (<=1800.0) pg/mL Total Protein 7.2 (6.4-8.2) g/dL Albumin 3.8 (3.4-5.0) g/dL Globulin 3.4 g/dL Albumin/Globulin Ratio 1.1 Influenza Type A Ag Positive A Influenza Type B Ag Negative RSV Antigen Not detected (NOT DETECTE) SARS-CoV-2 Ag (CV2AG) Negative (NEGATIVE) ECG Data Attestation: I personally reviewed and interpreted this ECG as follows: (Sinus tachycardia/rapid atrial rhythm at 130 bpm, right axis deviation, no acute ST segment elevation or T wave inversion) Discharge Plan Discharge Chief Complaint: Shortness of Breath/Dyspnea Clinical Impression: Influenza A, COPD (chronic obstructive pulmonary disease), Hypoxia Patient Disposition: Admitted as Observation Time of Disposition Decision: 20:57 Condition: Fair
[2024-11-05 19:26] LABS: Hematocrit 44.1 % (36.0-48.0); Hemoglobin 14.7 g/dL (12.0-16.0); Mean Corpuscular HGB Conc 33.3 g/dL (29.9-35.2); Mean Corpuscular Hemoglobin 31.3 pg (26.7-34.0); Mean Corpuscular Volume 93.8 fL (81.0-99.0); Mean Platelet Volume 10.1 fL (9.5-13.5); Platelet Count 219 10^3/uL (150-450); Red Cell Distribution Width 13.1 % (11.0-15.0); White Blood Count 11.5 10^3/uL (4.0-11.0)
[2024-11-05 19:40] LABS: Influenza Virus A Antigen Positive; Influenza Virus B Antigen Negative; Internal Control Within Normal Limits; Respiratory Syncytial Virus Not Detected (NOT DETECTE); SARS-CoV-2 Ag NEGATIVE (NEGATIVE)
[2024-11-05] MEDS: ACETAMINOPHEN 325 MG TABLET 650 MG PO (19:43)
[2024-11-05] MEDS: 0.9 % SODIUM CHLORIDE 1,000 ML 999 ML IV (19:43)
[2024-11-05] MEDS: METHYLPREDNISOLONE SOD SUCC PF 125 MG/2 ML VIAL IVP (19:43)
[2024-11-05 19:44] LABS: Alanine Aminotransferase 18 U/L (14-59); Albumin Globulin Ratio 1.1; Albumin Level 3.8 g/dL (3.4-5.0); Alkaline Phosphatase 82 U/L (46-116); Anion Gap 10.8; Aspartate Amino Transferase 26 U/L (15-37); BUN Creatinine Ratio 22.9; Bilirubin Total 0.5 mg/dL (0.2-1.0); Calcium 8.9 mg/dL (8.5-10.1); Carbon Dioxide 27.7 mmol/L (21.0-32.0); Chloride 101 mmol/L (98-107); Estimated GFR (African America >60 (>=60 mL/min/1.73m^2); Estimated GFR (Non-African Ame >60 (>=60 mL/min/1.73m^2); Globulin 3.4 g/dL; Glucose 103 mg/dL (74-106); Potassium 3.5 mmol/L (3.5-5.1); Sodium 136 mmol/L (136-145); Total Protein 7.2 g/dL (6.4-8.2)
[2024-11-05] MEDS: IPRATROPIUM/ALBUTEROL SULFATE 3 ML AMPUL.NEB IH (19:46)
[2024-11-05 19:49] LABS: D Dimer 0.45 mg/L FEU (<=0.59); INR 0.99; Prothrombin Time 10.5 sec (9.0-11.6)
[2024-11-05 19:50] LABS: Magnesium 1.6 mg/dL (1.8-2.4)
[2024-11-05 19:52] LABS: Atypical Lymphocytes Abs Man 0.11; Segmented Neut Absolute Manual 10.58 10^3/uL (1.4-6.5)
--- NOTE | 2024-11-05 20:13 | XR_ITS ---
The [address] [address] Patient Name: MIYA THOMAS MRN: [id number] date: 1945 Sex: F Assigned Patient Location: ER Current Patient Location: ED.MAIN Accession/Order Number: [id number] Exam Date: 11/05/2024 20:25 Report Date: 11/05/2024 21:30 At the request of: MESERET MARKER Procedure: XR chest 2V EXAMINATION: XR chest 2V HISTORY: SOB, hx copd + influenza COMPARISON: XR chest 04/13/2024 FINDINGS: LUNGS: No significant pulmonary parenchymal abnormalities. VASCULATURE: No increased pulmonary vasculature. PLEURA: No pneumothorax, effusion, or pleural thickening. CARDIAC: No cardiomegaly or cardiac silhouette abnormality. MEDIASTINUM: No visible mass or adenopathy. BONES: No fracture or visible bone lesion. OTHER: Negative. XR/XR chest 2V IMPRESSION: 1. Slightly hyperexpanded lungs. 2. No acute cardiopulmonary process. Electronically authenticated by: ABBE WEBSTER Date: 11/05/2024 21:30
--- OUTSIDE RECORDS SUMMARY | 2024-11-05 21:53 | XMS_ITS | CCD ---
Author Organization [facility] CliniSyak Care Team Providers Care Clinical Researcher Name Role Phone DR LONI COVARRUBIAS Admitting [...] Unavailable Loni Covarrubias MD Primary Care Provider [phone] Loni Covarrubias MD Primary Care Provider [phone] LONI COVARRUBIAS Primary Care Unavailable MARCY ESTRELLA [...] Unavailable Loni Covarrubias MD Primary Care Provider [phone] DARIUSZ RICH Attending Unavailable Allergies Allergy Classification Reported Allergen(s) Allergy Type Date of Onset Reaction(s) Facility (2 sources) black walnut pollen extract; Translations: [OYRYEOC-QXC-PBZ REDUCTASE INHIBITORS] Drug Allergy 02-28-2023 [facility] Repository (8 sources) HMG-CoA reductase inhibitor Drug Allergy 02-28-2023 Unknown [facility] Medications Current Medications Medication Drug Class(es) Dates Sig (Normalized) Sig (Original) [id number] 200 actuat albuterol 0.09 mg/actuat metered dose [...] by mouth once daily. fish oil concentrate (Laie-3) 300 MG capsule (2 sources) fish oil concentrate (Laie-3) 300 MG capsule Take 550 mg by [...] sources) Vitamin B12 cyanocobalamin/f olic acid (VITAMIN R89-YIQWN ACID) 1,000-[address] by sublingual route. 0 Active gabapentin 100 mg oral capsule (10 sources) Anti-epileptic Agent Start: 021 take 1 capsule by mouth once daily as needed gabapentin (NEURONTIN) 100 mg capsule Take 1 capsule by mouth once daily as needed (for sciatica) for up to 180 days. 11/12/2020 Active Comment on above: Take 1 capsule by [facility] once daily as needed (for sciatica) for [...] minerals/lutein (CENTRUM SILVER ULTRA WOMEN'S ORAL) omega 4-hib-ocu-fish oil (FI SH OIL) 100-160-1,000 mg cap [...] one(1) tablet d aily. 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 Normal [facility] XR SHLDR >/=3V AP/LAURA AP/OTH R RTon [...] - IMPRESSION: MINIMAL DEGENERATIVE CHANGES RIGHT SHOULDER [employer]ier[employer] Knitter: Picodeon Transcribe Date/Time: Feb 16 2024 2:48P Dictated by : MEHNAZ LOBATO MD This examination was interpreted and the report reviewed and electronically signed by: MEHNAZ LOBATO MD on Feb 16 2024 2:49PM EST [id number] Normal [facility] XR Shoulder - right 3 Viewso n 02-16-2024 IMPRESSION: MINIMAL DEGENERATIVE CHANGES RIGHT SHOULDER Seamless Hosiery Knitter: PSCB Transcribe Date/Time: Feb 16 2024 2:48P Dictated by : MEHNAZ LOBATO MD This examination was interpreted and the report reviewed and electronically signed by: MEHNAZ LOBATO MD on Feb 16 2024 2:49PM [facility] DIVISION OF RADIOLOGY * * *Final Report* [...] significant abnormality. - DIVISION OF RADIOLOGY Provider, [facility] - 02/16/2024 * * *Final Report* * [...] IMPRESSION IMPRESSION: MINIMAL DEGENERATIVE CHANGES RIGHT SHOULDER Seamless Hosiery Knitter: TAYA Transcribe Date/Time: Feb 16 2024 2:48P Dictated by : MEHNAZ LOBATO MD This examination was interpreted and the report reviewed and electronically signed by: MEHNAZ LOBATO MD on Feb 16 2024 2:49PM EST [facility] Radiology Study observation (narrative) [facility] XR Shoulder - right 3 ViewsO rdered By: Ccf Provider on 02-16-2024 [facility] CNOVon 01-31-2024 CNOV Office Visit (LOORRM ) NEVAEH THOMAS ([id number]) 1945 F Date Time Provider Department 01/31/24 [...] results and radiologist's interpretation, available in the [facility] health record. 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 Normal [facility] XR HIP 3V PELV+ AP/LAT RTon 01-31-2024 [...] lower abdomen. IMPRESSION: Right hip grossly unremarkable. Se[employer] Knitter: PSCB Transcribe Date/Time: Jan 31 2024 2:13P Dictated by : PORFIRIO MURPHY MD This examination was interpreted and the report reviewed and electronically signed by: PORFIRIO MURPHY MD on Jan 31 2024 2:14PM EST [id number] Normal [facility] XR Pelvis and Hip - right AP and Lateral frogon 01-31-2024 IMPRESSION: Right hip grossly unremarkable. Se[employer] Hosier[employer] Knitter: PSCB Transcribe Date/Time: Jan 31 2024 2:13P [...] the lower abdomen. DIVISION OF RADIOLOGY Provider, [facility] - 01/31/2024 * * *Final Report* [...] abdomen. IMPRESSION IMPRESSION: Right hip grossly unremarkable. [employer]ier[employer] Knitter[facility] Transcribe Date/Time: Jan 31 2024 2:13P Dictated by : PORFIRIO MURPHY MD This examination was interpreted and the report reviewed and electronically signed by: PORFIRIO MURPHY MD on Jan 31 2024 2:14PM EST [facility] Radiology Study observation (narrative) [facility] XR Pelvis and Hip - right AP and Lateral frogOrdered By: Ccf Provider on 01-31-2024 [facility] CALCIUMon 12-07-2022 Calcium [Mass/Vol] 9.4 mg/dL Normal 8.5-10.1 [facility] Comment on above: Performed By: #### C RONI, [place] #### [facility] [address] [address] [address] Lori Bautista CREATININEon 12-07-2022 Creatinine [Mass/Vol] 0.64 mg/dL Normal 0.55-1.02 [facility] Comment on above: Performed By: #### C RONI, [place] #### [facility] [address] [place] [address] Dr. Lori Bautista EGFR-AF SPANISH >60 Normal >=60 [facility] Comment on above: Performed By: #### C RONI, [place] #### [facility] [address] [address] [address] Lori Bautista EGFR-NON AF SPANISH >60 Normal >=60 [facility] Comment on above: Performed By: #### C RONI, [place] #### [facility] [address] [place] [address] LUNG CANCER SCREENINGon [...] VERONICA DUNCAN Date: 2022-09-10 14:57 Normal [facility] INSULINon 08-28-2022 Insulin 4.3 uIU/mL Normal 2.6-24.9 [facility] Comment on above: Performed By: #### I NSULIN #### [facility] [address] [place] [address] Dr. Lori Bautista CBC AUTO DIFFon 08-27-2022 BASO # 0.1 103/ul Normal 0.0-0.1 [facility] Comment on above: Performed By: #### C BC #### [facility] [address] [place] [address] Dr. Lori Bautista Basophils/100 WBC (Bld) 0.6 % Normal 0.2-2.0 [facility] Comment on above: Performed By: #### C BC #### [facility] [address] [place] [address] Dr. Lori Bautista EO # 0.1 103/ul Normal 0.0-0.7 [facility] Comment on above: Performed By: #### C BC #### [facility] [address] [place] [address] Dr. Lori Bautista Eosinophils/100 WBC (Bld) 0.6 % Critically low 0.9-7.0 [facility] Comment on above: Performed By: #### C BC #### [facility] [address] [place] [address] Dr. Lori Bautista Erythrocyte distribution width (RBC) [Ratio] 13.2 % Normal 11.0-15.0 [facility] Comment on above: Performed By: #### C BC #### [facility] [address] [place] [address] Dr. Lori Bautista Hematocrit (Bld) [Volume fraction] 41.3 % Normal 36.0-48.0 [facility] Comment on above: Performed By: #### C BC #### [facility] [address] [place] [address] Dr. Lori Bautista Hemoglobin (Bld) [Mass/Vol] 13.5 g/dL Normal 12.0-16.0 [facility] Comment on above: Performed By: #### C BC #### [facility] [address] [place] [address] Dr. Lori Bautista IG # 0.02 10e3/ul Normal 0.00-0.03 [facility] Comment on above: Performed By: #### C BC #### [facility] [address] [place] [address] Dr. Lori Bautista IG % 0.3 % Normal 0.0-0.5 [facility] Comment on above: Performed By: #### C BC #### [facility] [address] [place] [address] Dr. Lori Bautista LYMPH # 2.0 103/ul Normal 1.2-3.8 [facility] Comment on above: Performed By: #### C BC #### [facility] [address] [place] [address] Dr. Lori Bautista Lymphocytes/100 WBC (Bld) 25.6 % Normal 20.5-60.0 [facility] Comment on above: Performed By: #### C BC #### [facility] [address] [place] [address] Dr. Lori Bautista MANUAL DIFF REQ NO Normal [facility] Comment on above: Performed By: #### C BC #### [facility] [address] [place] [address] Dr. Lori Bautista MCH (RBC) [Entitic mass] 31.1 pg Normal 26.7-34.0 [facility] Comment on above: Performed By: #### C BC #### [facility] [address] [place] [address] Dr. Lori Bautista MCHC (RBC) [Mass/Vol] 32.7 g/dL Normal 29.9-35.2 [facility] Comment on above: Performed By: #### C BC #### [facility] [address] [place] [address] Dr. Lori Bautista MCV (RBC) [Entitic vol] 95.2 fL Normal 81.0-99.0 [facility] Comment on above: Performed By: #### C BC #### [facility] [address] [place] [address] Dr. Lori Bautista MONO # 0.7 103/ul Normal 0.3-0.8 [facility] Comment on above: Performed By: #### C BC #### [facility] [address] [place] [address] Dr. Lori Bautista Monocytes/100 WBC (Bld) 8.4 % Normal 1.7-12.0 [facility] Comment on above: Performed By: #### C BC #### [facility] [address] [place] [address] Dr. Lori Bautista NEUT # 5.0 103/ul Normal 1.4-6.5 [facility] Comment on above: Performed By: #### C BC #### [facility] [address] [place] [address] Dr. Loir Bautista Neutrophils/100 WBC (Bld) 64.5 % Normal 43.0-75.0 [facility] Comment on above: Performed By: #### C BC #### [facility] [address] [place] [address] Dr. Lori Bautista Platelet mean volume (Bld) [Entitic vol] 9.9 fL Normal 9.5-13.5 [facility] Comment on above: Performed By: #### C BC #### [facility] [address] [address] [address] Lori Bautista PLT 310 103/ul Normal 150-450 [facility] Comment on above: Performed By: #### C BC #### [facility] [address] [address] [address] Lori Bautista RBC 4.34 106/ul Normal 4.20-5.40 [facility] Comment on above: Performed By: #### C BC #### [facility] [address] [address] [address] Lori Bautista WBC 7.8 103/ul Normal 4.0-11.0 [facility] Comment on above: Performed By: #### C BC #### [facility] [address] [address] [address] Lori Bautista FREE THYROXINE INDEX T7on FTI 2.26 Normal 1.30-4.50 [facility] Comment on above: Performed By: #### L IPID, TSH, T7, CMP ####[facility] [address] [address]Dr. Lori Bautista T3U 31.0 % Normal 30.0-39.0 [facility] Comment on above: Performed By: #### L IPID, TSH, T7, CMP ####[facility] [address] [id number]. Lori Bautista T4 [Mass/Vol] 7.30 ug/dL Normal 4.80-13.90 [facility] Comment on above: Performed By: #### L IPID, TSH, T7, CMP ####[facility] [address] [address]Dr. Lori Bautista GLYCOHEMOGLOBIN A1Con 2021 ADA RECOMMENDATION SEE BELOW Normal [facility] Comment on above: Result Comment: ADA RECOMMENDED LIMIT 4.0 - 6.0 ADA THERAPEUTIC TARGET < 7.0 ACTION SUGGESTED > 7.0 Performed By: #### A 1C #### [facility] [address] [place], [place] [address] Dr. Lori Bautista Glucose [Mass/Vol] 117 mg/dL Normal [facility] Comment on above: Performed By: #### A 1C #### [facility] [address] [place], [place] [address] Dr. Lori Bautista HbA1c (Bld) [Mass fraction] 5.7 % Normal 4.5-6.2 [facility] Comment on above: Performed By: #### A 1C #### [facility] [address] [address] [address] oLri Bautista IRONon 08-27-2022 Iron [Mass/Vol] 105.0 ug/dL Normal 50.0-170.0 [facility] Comment on above: Performed By: #### I VANDA KYLE ####[facility] [address] [id number]. Lori Bautista LIPID PROFILEon 08-27-2022 CHOL-HDL RATIO NORM SEE BELOW Normal [facility] Comment on above: Result Comment: 3.3 - 4.4 LOW RISK 4.4 - 7.1 AVERAGE RISK 7.1 - 11.0 MODERATE RISK >11.0 HIGH RISK Performed By: #### L IPID, TSH, T7, CMP ####[facility] [address] [place], [place] [address]Ez. Lori Bautista Cholesterol [Mass/Vol] 186 mg/dL Normal <=200 [facility] Comment on above: Performed By: #### L IPID, TSH, T7, CMP ####[facility] [address] [place], [place] [address]Hf. Lori Bautista Cholesterol in HDL [Mass/Vol] 55 mg/dL Normal 40-60 [facility] Comment on above: Performed By: #### L IPID, TSH, T7, CMP ####[facility] [address] [place], [place] [address]InClarence Bautista Cholesterol in LDL [Mass/Vol] 116.4 mg/dL Normal [facility] Comment on above: Performed By: #### L IPID, TSH, T7, CMP ####[facility] [address] [address]Dr. Lori Bautista Cholesterol.total/Ch olesterol in HDL [Mass ratio] 3.4 {ratio} Normal [facility] Comment on above: Performed By: #### L IPID, TSH, T7, CMP ####[facility] [address] [address]Dr. Lori Bautista HDL NORMAL > or = 60 mg/dl - LO W CARDIOVASCULAR RISK <40 mg/dl - HIGH CARDIOVASCULAR RISK Normal [facility] Comment on above: Performed By: #### L IPID, TSH, T7, CMP ####[facility] [address] [address]Dr. Lori Bautista LDL CALC NORMAL SEE BELOW Normal [facility] Comment on above: Result Comment: <100 mg/dl OPTIMAL 100 - 129 mg/dl NEAR OR ABOVE OPTIMAL 130 - 159 mg/dl BORDERLINE HIGH 160 - 189 mg/dl HIGH >190 mg/dl VERY HIGH Performed By: #### L IPID, TSH, T7, CMP ####[facility] [address] [address]Dr. Lori Bautista Triglyceride [Mass/Vol] 73 mg/dL Normal <=150 [facility] Comment on above: Performed By: #### L IPID, TSH, T7, CMP ####[facility] [address] [address]Dr. Lori Bautista VLDL CALC 14.6 mg/dL Normal [facility] Comment on above: Performed By: #### L IPID, TSH, T7, CMP ####[facility] [address] [address]Dr. Lori Bautista PROF 14(COMP METB)on 022 Albumin [Mass/Vol] 3.9 g/dL Normal 3.4-5.0 [facility] Comment on above: Performed By: #### L IPID, TSH, T7, CMP ####[facility] [address] [address]Dr. Lori Bautista Albumin/Globulin [Mass ratio] 1.2 {ratio} Normal [facility] Comment on above: Performed By: #### L IPID, TSH, T7, CMP ####[facility] [address] [place], [place] [address]Dr. Lori Bautista ALP [Catalytic activity/Vol] 68 U/L Normal 46-116 [facility] Comment on above: Performed By: #### L IPID, TSH, T7, CMP ####[facility] [address] [place], [place] [address]Dr. Lori Bautista ALT [Catalytic activity/Vol] 20 U/L Normal 14-59 [facility] Comment on above: Performed By: #### L IPID, TSH, T7, CMP ####[facility] [address] [place], [place] [address]Dr. Lori Bautista Anion gap [Moles/Vol] 8.2 mmol/L Normal [facility] Comment on above: Performed By: #### L IPID, TSH, T7, CMP ####[facility] [address] [place], [place] [address]Dr. Kimcira Bautista AST [Catalytic activity/Vol] 22 U/L Normal 15-37 [facility] Comment on above: Performed By: #### L IPID, TSH, T7, CMP ####[facility] [address] [place], [place] [address]Dr. Lori Bautista Bilirubin [Mass/Vol] 0.3 mg/dL Normal 0.2-1.0 [facility] Comment on above: Performed By: #### L IPID, TSH, T7, CMP ####[facility] [address] [place], [place] [address]Dr. Lori Bautista Calcium [Mass/Vol] 9.2 mg/dL Normal 8.5-10.1 [facility] Comment on above: Performed By: #### L IPID, TSH, T7, CMP ####[facility] [address] [place], [place] [address]Dr. Lori Bautista Chloride [Moles/Vol] 105 mmol/L Normal 98-107 [facility] Comment on above: Performed By: #### L IPID, TSH, T7, CMP ####[facility] [address] [address]Dr. Lori Michele CO2 [Moles/Vol] 30.0 mmol/L Normal 21.0-32.0 [facility] Comment on above: Performed By: #### L IPID, TSH, T7, CMP ####[facility] [address] [place], [place] [address]Dr. Lori Bautista Creatinine [Mass/Vol] 0.67 mg/dL Normal 0.55-1.02 [facility] Comment on above: Performed By: #### L IPID, TSH, T7, CMP ####[facility] [address] [place], [place] [address]Dr. Lori Bautista EGFR-AF SPANISH >60 Normal >=60 [facility] Comment on above: Performed By: #### L IPID, TSH, T7, CMP ####[facility] [address] [place], [place] [address]Dr. Lori Bautista EGFR-NON AF SPANISH >60 Normal >=60 [facility] Comment on above: Performed By: #### L IPID, TSH, T7, CMP ####[facility] [address] [place], [place] [address]Dr. Lori Bautista Globulin (S) [Mass/Vol] 3.3 g/dL Normal [facility] Comment on above: Performed By: #### L IPID, TSH, T7, CMP ####[facility] [address] [place], [place] [address]Dr. Lori Bautista Glucose [Mass/Vol] 84 mg/dL Normal 74-106 [facility] Comment on above: Performed By: #### L IPID, TSH, T7, CMP ####[facility] [address] [place], [place] [address]Dr. Lori Bautista Potassium [Moles/Vol] 4.2 mmol/L Normal 3.5-5.1 [facility] Comment on above: Performed By: #### L IPID, TSH, T7, CMP ####[facility] [address] [place], [place] [address]Dr. Lori Bautista Protein [Mass/Vol] 7.2 g/dL Normal 6.4-8.2 [facility] Comment on above: Performed By: #### L IPID, TSH, T7, CMP ####[facility] [address] [address]Dr. Lori Bautista Sodium [Moles/Vol] 139 mmol/L Normal 136-145 [facility] Comment on above: Performed By: #### L IPID, TSH, T7, CMP ####[facility] [address] [place], [place] [address]Dr. Lori Bautista Urea nitrogen [Mass/Vol] 18.0 mg/dL Normal 7.0-18.0 [facility] Comment on above: Performed By: #### L IPID, TSH, T7, CMP ####[facility] [address] [place], [place] [address]Dr. Lori Bautista Urea nitrogen/Creatinine [Mass ratio] 26.9 mg/mg Normal [facility] Comment on above: Performed By: #### L IPID, TSH, T7, CMP ####[facility] [address] [place], [place] [address]Dr. Lori Bautista TSHon 08-27-2022 TSH 1.615 uIU/mL Normal 0.358-3.740 [facility] Comment on above: Performed By: #### L IPID, TSH, T7, CMP ####[facility] [address] [place], [place] [address]Dr. Lori Bautista VITAMIN D 25 OHon 08-27-2022 VIT D 25-OH 73.1 ng/mL Normal [facility] Comment on above: Performed By: #### I SAROJ VITAD ####[facility] [address] [place], [place] [address]Dr. Lori Bautista VIT D RANGES SEE BELOW Normal [facility] Comment on above: Result Comment: <20 ng/mL Vit D deficient 20 - <30 ng/mL Vit D insufficient 30 - 100 ng/mL Vit D sufficient >100 ng/mL Potential Toxicity Performed By: #### I SAROJ VITAD ####[facility] [address] [place], [place] [address]Ki. Lori Bautista MG MAMM SCREEN 3D APPLE CADon 08-04-2022 MG MAMM SCREEN 3D APPLE CAD Patient: NEVAEH THOMAS Exam Date: 08/04/2022 : 1945 Gender:F Ordering : DR CATALINA CERVANTES Admission #: [id number] Family : Order #: [id number] CLICK HERE TO VIEW EXAM RADIOLOGY REPORT [...] lung cancer at age 84. LOCATION: [facility] BREAST COMPOSITION: Heterogeneously dense,which may obscure [...] MD on 08/04/2022 at 13:25 Normal [facility] Covid-19 PCR (CVDTBH)on SARS-CoV-2 (COVID-19) RNA PABLO+probe Ql (Unsp spec) Not detected Normal NOT DETECTED [facility] Comment on above: Result Comment: This test is not yet approved or cleared by the [place] FDA. When there are no FDA-approved or cleared tests available, and other criteria are met, FDA can make tests available under an emergency access mechanism called an Emergency Use Authorization (EUA). The EUA for this test is supported by the [place] [employer] and Human Service's (HHS's) declaration [...] SARS-CoV-2. Performed By: #### C VDTBH #### [facility] [address] [address] [address] Lori Bautista SYMPTOMATIC COVID-19 ANTIGEN on 05-12-2022 EUA Statement SEE BELOW Normal [facility] Comment on above: Result Comment: This [...] sooner. Performed By: #### C VDAGS #### [facility] [address] [address] [address] Lori Bautista SARS-CoV-2 (COVID-19) RNA PABLO+probe Ql (Unsp spec) Negative Normal NEGATIVE [facility] Comment on above: Performed By: #### C VDAGS #### [facility] [id number] Lori Bautista CALCIUMon 05-04-2022 Calcium [Mass/Vol] 9.6 mg/dL Normal 8.5-10.1 [facility] Comment on above: Performed By: #### C RONI, [place] ####[facility] [id number] [id number]. Lori Bautista CREATININEon 05-04-2022 Creatinine [Mass/Vol] 0.68 mg/dL Normal 0.55-1.02 [facility] Comment on above: Performed By: #### LAZARUS LOBO ####[facility] [id number] [place], [place] [address]Ro. Lori Bautista EGFR-AF SPANISH Normal >=60 [facility] Comment on above: Performed By: #### LAZARUS LOBO ####[facility] [id number] [place], [place] [address]La. Lori Bautista EGFR-NON AF SPANISH Normal >=60 [facility] Comment on above: Performed By: #### LAZARUS LOBO ####[facility] [id number] [place], [place] [address]Fd. Lori Bautista XR DEXA BONE DENSITYon 03-29 [...] by: ABBE WEBSTER Date: 2022-03-29 12:43 Normal [facility] XR KUB 1 VIEWon 12-18-2021 [...] by: ABBE WEBSTER Date: 2021-12-18 15:43 Normal [facility] Encounters Encounter Date Encounter Type Care Provider Facility Start: 10-02-2024 End: 10-02-2024 Office outpatient new 30 minutes Dariusz Rich DPM Work Phone: [facility] Comment on above: Pain of right foot ( Primary Dx); Plantar keratosis; Right foot pain; Corns and callosities Start: 10-02-2024 End: 10-02-2024 ambulatory DARIUSZ RICH Not Available Start: 03-27-2024 End: 03-27-[address] [facility] Facility:[facility] Start: 03-27-2024 End: 03-27-2024 Patient encounter procedure Marcy Estrella DO Work Phone: Orthopaedics Comment on above: Tendinopathy of righ t rotator cuff (Primary Dx); Degenerative tear of acetabular labrum Start: 03-05-2024 End: 03-05-[address] 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 Expected: 02/23/2026 [facility] Work Phone: Comment on above: Expected: 02/23/2026 Start: 03-06-2025 End: 03-06-2025 Patient encounter procedure 03/06/2025 1:30 PM EDT Office Visit [facility] Ophthalmology [address], [place] [id number] Catalino London S, OD [address] [place] [address] Annual Eye exam Ophthalmology Comment on above: Annual Eye exam Start: 02-17-2025 OCT MACULA CIRRUS OU (BOTH EYES) OCT MACULA CIRRUS OU (BOTH EYES) [facility] Imaging Routine 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 Expected: 02/17/2025 [facility] Work Phone: Comment on above: Expected: 02/17/2025 Start: 07-08-2024 Covid-19 Vaccine ( season) Covid-19 Vaccine ( season) [facility] Start: 07-08-2024 Influenza vaccination [facility] [place] [facility] Start: 05-27-2024 Diabetes Screening Diabetes Screenin g [facility] Start: 03-27-2024 End: 03-27-2024 Patient encounter procedure 03/27/2024 1:15 PM EDT Office Visit Orthopaedics [address] [place] [address] Marcy Estrella DO [address] [place] [address] 8 week right hip pain Orthopaedics Comment on above: 8 week right hip dave n Start: 11-07-2023 Advance Directive Discussion Advance Directive Discussion [facility] Start: 11-07-2023 Behavioral Health Screening Behavioral Health Screening [facility] Start: 11-07-2023 Depression Assessment Depression Ass essment [facility] Start: 07-08-2023 Covid-19 Vaccine () Covid-19 Vaccine () [facility] Start: 07-08-2023 Influenza vaccination Influenza Vacc ine (#1) [facility] Start: 11-07-2022 ADVANCE DIRECTIVE DISCUSSION ADVANCE DIRECTIVE DISCUSSION [facility] Start: 11-07-2022 DEPRESSION ASSESSMENT DEPRESSION ASS ESSMENT [facility] Start: 05-03-2022 COVID-19 VACCINE (4 - Booster for Pfizer series) COVID-19 VACCINE (4 - Booster for Pfizer series) [facility] Start: 02-11-2012 BONE DENSITY BONE DENSITY [facility] Start: 02-11-2012 Screening for osteoporosis Bone Density Screening [facility] Start: 2007 RSV Vaccine (1 - 1-dose 60+ series) RSV Vaccine (1 - 1-dose 60+ series) [facility] Start: 1997 Influenza vaccination LUNG CANCER [facility] Start: 1997 Screening for malignant neoplasm of lung Lung Cancer Screening [facility] Start: 1997 SHINGRIX VACCINE (1 of 2) SHINGRIX VACCINE (1 of 2) [facility] Start: 02-11-1992 DIABETES SCREEN DIABETES SCREEN [facility] Start: 1966 Urine microalbumin profile DTAP,TDAP,TD (1 - Tdap) [facility] Start: 1965 ANNUAL PCP TEAM CHRONIC DISEASE VISIT ANNUAL PCP TEAM CHRONIC DISEASE VISIT [facility] Start: 1965 Anxiety Screening Anxiety Screening [facility] Start: 1965 Depression Screening Depression Scre ening [facility] Start: 1965 HEPATITIS C SCREENING HEPATITIS C [facility] Start: 1965 Hepatitis C screening Hepatitis C [facility] Start: 1965 SPIROMETRY SPIROMETRY [facility] Start: 1953 PNEUMOCOCCAL: 65+ (1 - PCV) PNEUMOCOCCAL: 65+ (1 - PCV) [facility] OCT MACULA CIRRUS OU (BOTH EYES) OCT MACULA CIRRUS OU (BOTH EYES) [facility] Imaging Routine 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 02/28/2023 5:04 PM EDT [facility] Work Phone: [facility] Immunizations Immunization Date Immunization Notes Care Provider Lulu diaz 08-07-2022 influenza virus vacc ine, unspecified formulation Marcy Estrella DO Work Phone: [facility] Payers Date Payer Category Payer Medicare (Managed Care) [employer] Member Subscriber Plan / Payer (Effective 2023-Present) Name: Nevaeh Thomas Relation to Subscriber: Self Name: Nevaeh Thomas Payer ID: Not on file Group ID: [id number] Type: Not on file Address: [facility] [id number] [id number] 2020 Unknown [id number] 1959 Unknown [id number] 1945 Unknown [id number] .[id number] 1945 Unknown [id number] .[id number] 1945 Unknown [id number] .2.593 1945 Unknown [id number] .[id number] 1945 Unknown [id number] .2.593 1945 Unknown [id number] .2.593 1947 Unknown [id number] .2.593 1947 Unknown [id number] .[id number] 1945 Unknown [id number] .[id number] Social History Date Type Detail Facility Start: 11-12-2020 End: 10-02-2024 Tobacco smoking status NHIS Smokes tobacco daily [facility] Work Phone: History of tobacco use Cigarette Smoker [facility] [place] [facility] Work Phone: Start: 11-12-2020 End: 10-02-2024 Cigarettes smoked current (pack per day) - Reported 1 [facility] Start: 11-12-2020 End: 10-02-2024 Tobacco use and exposure Smokeless tobacco non-user [facility] Work Phone: Start: 02-28-2023 End: 03-05-2024 Alcohol intake Lifetime non-drinker (finding) [facility] Start: 09-09-2020 History SDOH Alcohol Frequency 1 [facility] Start: 1945 Sex Assigned At Female [facility] Start: 09-09-2020 End: 10-02-2024 Alcohol Use Disorder Identification Test - Consumption [AUDIT-C] [facility] How often to you hav e a drink containing alcohol? Never [facility] Average Number of Drinks Not on file [facility] Start: 09-08-2020 Gender identity Identifies as female gender (finding) [facility] Start: 09-08-2020 Sexual orientation Heterosexual (finding) [facility] Start: 10-02-2024 Alcoholic beverage intake Ex-drinker (finding) [facility] Procedure Code Equipment Code Equipment Origin al Text Equipment Identifier Dates Lens Iol 0d +15 Derik Uv Abs - [id number] Start: 11-19-2020 Comment on above: Description: -0.26 Lens Iol 0d +15 Derik Uv Abs - [id number] Start: 12-03-2020 Comment on above: Description: [...] 6. Reappoint p.r.n. documented in this encounter [facility] 03-27-2024 Note HNO ID: [id number] Author: MARCY ESTRELLA DO Service: ? Author [...] Follow-up as needed Procedures Marcy Estrella DO [facility] 03-27-2024 History of Present illness Narrative Nevaeh [...] Marcy Estrella DO documented in this encounter [facility] 03-05-2024 Note HNO ID: [id number] Author: CATALINO LONDON OD Service: ? Author Type: WREATH MAKER Type: Progress Notes Filed: 03/05/2024 17:08 Note Text: Documentation transcribed from Paper notes from [facility] ASSESSMENT/PLAN: 1. Keratoconjunctivitis sicca of both eyes [...] Z96.1 Monitor March 05, 2024 5:03 PM [facility] 03-05-2024 History of Present illness Narrative Documentation transcribed from Paper notes from [facility] ASSESSMENT/PLAN: 1. Keratoconjunctivitis sicca of both eyes [...] 2024 5:03 PM documented in this encounter [facility] 02-16-2024 Note HNO ID: [id number] Author: JUDY LOPEZ RT(R) Service: ? Author [...] PATIENT PRESENTS WITH AN IMPLANTABLE OR ATTACHED FACILITIES ENGINEER: No RADIOLOGY DEPARTMENT: General X-ray: Exam(s) Completed: Upper Extremity X-Ray(s): Shoulder, AP / TRUE AP / AXILLARY right PERIPHERAL IV DATA: Not applicable SIGNED BY: RT Anthony(R) February 16, 2024 1:02 PM [facility] 02-16-2024 Note HNO ID: [id number] Author: MARCY ESTRELLA DO Service: ? Author [...] results and radiologist's interpretation, available in the [facility] health record. Images were reviewed with [...] making as documented. Marcy D Estrella, DO [facility] 02-16-2024 History of Present illness Narrative Radiology [...] PATIENT PRESENTS WITH AN IMPLANTABLE OR ATTACHED FACILITIES ENGINEER: No RADIOLOGY DEPARTMENT: General X-ray: Exam(s) Completed: Upper Extremity X-Ray(s): Shoulder, AP / TRUE AP / AXILLARY right PERIPHERAL IV DATA: Not applicable SIGNED BY: RT Anthony(R) February 16, 2024 1:02 PM documented in this encounter [facility] 02-16-2024 History of Present [...] results and radiologist's interpretation, available in the [facility] health record. Images were reviewed with [...] Marcy Estrella DO documented in this encounter [facility] 01-31-2024 Note HNO ID: [id number] Author: MARCY ESTRELLA, DO Service: ? Author [...] results and radiologist's interpretation, available in the [facility] health record. Images were reviewed with [...] decision making as documented. Marcy Estrella DO [facility] 01-31-2024 Note HNO ID: [id number] Author: MARTHA CROOKS RT(R) Service: ? Author [...] PATIENT PRESENTS WITH AN IMPLANTABLE OR ATTACHED FACILITIES ENGINEER: No RADIOLOGY DEPARTMENT: General X-ray: Exam(s) Completed: Pelvis X-Ray: Pelvis with Hip Right PERIPHERAL IV DATA: Not applicable SIGNED BY: RT Elisa(R) January 31, 2024 2:01 PM [facility] 01-31-2024 History of Present illness Narrative Images [...] results and radiologist's interpretation, available in the [facility] health record. Images were reviewed with [...] Marcy Estrella DO documented in this encounter [facility] 02-28-2023 History of Present [...] 2023 1:19 PM documented in this encounter [facility] Evaluation note Diagnosis Vitreous [...] (degenerative) of retina [facility] Diagnosis Degenerative tear of acetabular labrum- Primary Pain in right hip Pain in joint, pelvic region and thigh Primary osteoarthritis of right hip Primary localized osteoarthrosis, pelvic region and thigh [facility] Diagnosis Tendinopathy of right rotator cuff- Primary Impingement syndrome of right shoulder Other affections of shoulder region, not elsewhere classified [facility] Diagnosis Keratoconjunctivitis sicca of both eyes not specified as Sjogren's- Primary Keratoconjunctivitis sicca, not specified as Sjogren's Retinal pigment epithelial mottling of macula Other retinal disorders 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, bilateral Pseudophakia of both eyes Lens replaced by other means [facility] Tendinopathy of right rotator cuff- Primary Degenerative tear of acetabular labrum documented in this encounter [facility] note* Diagnosis Preop examination- Primary Preoperative examination, unspecified Combined forms of age-related cataract of both eyes Other and combined forms of senile cataract Chronic obstructive pulmonary disease, unspecified COPD type (HCC) Gastroesophageal reflux disease, unspecified whether esophagitis present Hyperlipidemia, unspecified hyperlipidemia type Tobacco abuse Tobacco use disorder Acute pain of right shoulder documented in this encounter [facility] note* Diagnosis Preop examination- Primary Preoperative examination, unspecified Combined forms of age-related cataract of both eyes Other and combined forms of senile cataract Chronic obstructive pulmonary disease, unspecified COPD type (HCC) Gastroesophageal reflux disease, unspecified whether esophagitis present Hyperlipidemia, unspecified hyperlipidemia type Tobacco abuse Tobacco use disorder Pain Generalized pain documented in this encounter [facility] note* Diagnosis Pain of right foot- Primary Plantar keratosis Right foot pain Pain in soft tissues of limb Corns and callosities documented in this encounter [facility] for referral (narrative)* Diagnostic Procedure Only (Routine) - Closed Specialty Diagnoses / Procedures Referred By Contac t Referred To Contact XR IMAGING Diagnoses Acute pain of right shoulder Procedures XR SHOULDER GENERAL 3V OR MORE AP/TRUE AP/OTHER RIGHT RADEX SHOULDER COMPLETE MINIMUM 2 VIEWS Marcy Estrella DO [address] [place] [address] [place] [address] Referral ID Status Reason Start Date Expiration Date V isits Requested Visits Authorized [id number] Closed Auto-Generate d Referral 02/07/2024 03/08/2025 1 1 [facility] for referral (narrative)* Diagnostic Procedure Only (Routine) - Closed Specialty Diagnoses / Procedures Referred By Contac t Referred To Contact XR IMAGING Diagnoses Pain Procedures XR HIP GENERAL 3V PELV/AP/LAT RIGHT RADEX HIP UNILATERAL WITH PELVIS 2-3 VIEWS Marcy Estrella DO [address] [place] [address] [place] [address] Referral ID Status Reason Start Date Expiration Date V isits Requested Visits Authorized [id number] Closed Auto-Generate d Referral 01/24/2024 02/22/2025 1 1 [facility] for visit Narrative* Diagnostic Procedure Only (Routine) - Closed Specialty Diagnoses / Procedures Referred By Contac t Referred To Contact XR IMAGING Diagnoses Acute pain of right shoulder Procedures XR SHOULDER GENERAL 3V OR MORE AP/TRUE AP/OTHER RIGHT RADEX SHOULDER COMPLETE MINIMUM 2 VIEWS Marcy Estrella, DO [address] [place] [address] [place] [address] Referral ID Status Reason Start Date Expiration Date V isits Requested Visits Authorized [id number] Closed Auto-Generate d Referral 02/07/2024 03/08/2025 1 1 [facility] for visit Narrative* Diagnostic Procedure Only (Routine) - Closed Specialty Diagnoses / Procedures Referred By Contac t Referred To Contact XR IMAGING Diagnoses Pain Procedures XR HIP GENERAL 3V PELV/AP/LAT RIGHT RADEX HIP UNILATERAL WITH PELVIS 2-3 VIEWS Marcy Estrella, DO [address] [place] [address] [place] [address] Referral ID Status Reason Start Date Expiration Date V isits Requested Visits Authorized [id number] Closed Auto-Generate d Referral 01/24/2024 02/22/2025 1 1 [facility] Summary Purpose Family History [...] COMPLEX 45 MINS Marcy Estrella, DO [address] [place] [address] [facility] [address] [address] Referral ID Status Reason Start Date Expiration Date Visits Requested Visits Authorized [id number] Pending Review Auto-Generat ed Referral 01/31/2024 01/30/2025 1 1 Specialty Diagnoses / Procedures Referred By Milagros maxwell Referred To Contact [facility] Diagnoses Tendinopathy of right rotator cuff Impingement syndrome of right shoulder Procedures CONSULT TO PHYSICAL THERAPY PHYSICAL THERAPY EVALUATION HIGH COMPLEX 45 MINS Marcy Estrella, DO [address] [place] [address] [facility] [address] [address] Referral ID Status Reason Start Date Expiration Date Visits Requested Visits Authorized [id number] Pending Review Auto-Generat ed Referral 02/16/2024 02/15/2025 1 1 Additional Source Comments INFORMATION SOURCE (unrecogn ized section and content) DATE CREATED AUTHOR 12/07/2022 [facility] DATE CREATED AUTHOR AUTHOR'S ORGANIZ ATION 03/29/2024 [facility] DATE CREATED AUTHOR AUTHOR'S ORGANIZ ATION 10/05/2024 [facility] EPIC Source Comments (unrecognize d section and content) In the event this informatio n is protected by the Federal Confidentiality of Alcohol and Drug Abuse Patient Records regulations: The Federal rules restrict any use of the information to criminally investigate or prosecute any alcohol or drug abuse patient.[facility] the event this information is protected by the Federal Confidentiality of Alcohol and Drug Abuse Patient Records regulations: The Federal rules restrict any use of the information to criminally investigate or prosecute any alcohol or drug abuse patient.[facility] the event this information is protected by the Federal Confidentiality of Alcohol and Drug Abuse Patient Records regulations: The Federal rules restrict any use of the information to criminally investigate or prosecute any alcohol or drug abuse patient.[facility] the event this information [...] or prosecute any alcohol or drug abuse patient.[facility] the event this information is protected by the Federal Confidentiality of Alcohol and Drug Abuse Patient Records regulations: The Federal rules restrict any use of the information to criminally investigate or prosecute any alcohol or drug abuse patient.[facility] the event this information is protected by the Federal Confidentiality of Alcohol and Drug Abuse Patient Records regulations: The Federal rules restrict any use of the information to criminally investigate or prosecute any alcohol or drug abuse patient.[facility] the event this information is protected by the Federal Confidentiality of Alcohol and Drug Abuse Patient Records regulations: The Federal rules restrict any use of the information to criminally investigate or prosecute any alcohol or drug abuse patient.[facility] Reason for Visit (unrecogniz ed section and content) Reason Comments Yearly Exam Floaters Both Eyes Reason Comments New Right Hip Pain Reason Comments Radiology XR Reason Comments New Pain (Shoulder Pain) Reason Comments Dry Eye(s) Both Eyes Vitreous Degeneration (Pvd) Reason Comments Established Patient Right Hip Pain Care Teams (unrecognized sec tion and content) Clinical Researcher Relationship Specialty Start Date End Date Loni Covarrubias MD PCP - General Family Medicine 08/31/10 Clinical Researcher Relationship Specialty Start Date End Date Loni Covarrubias MD PCP - General Family Medicine 08/31/10 Clinical Researcher Relationship Specialty Start Date End Date Loni Covarrubias MD PCP - General Family Medicine 08/31/10 Clinical Researcher Relationship Specialty Start Date End Date Loni Covarrubias MD PCP - General Family Medicine 08/31/10 Clinical Researcher Relationship Specialty Start Date End Date Loni Covarrubias MD PCP - General Family Medicine 08/31/10 Clinical Researcher Relationship Specialty Start Date End Date Loni Covarrubias MD PCP - General Family Medicine 08/31/10 Clinical Researcher Relationship Specialty Start Date End Date Loni Covarrubias MD PCP - General Family Medicine 08/31/10 Clinical Researcher Relationship Specialty Start Date End Date Loni Covarrubias MD PCP - General Family Medicine 08/31/10 Clinical Researcher Relationship Specialty Start Date End Date Loni Covarrubias MD [address] [place] [id number] PCP - General Family Medicine 10/02/24 FOR [...] BE BASED ON THE PRIMARY CLINICAL RECORDS. [employer] provides no warranty or guarantee of the accuracy or completeness of information in this document.
--- NOTE | 2024-11-05 23:14 | ECG_ITS ---
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
[2024-11-06] VITALS (8 sets, daily range): BP systolic 105–124; BP diastolic 61–71; PULSE 76–107; TEMP 36.3–36.9; O2SAT 91–95
[2024-11-06] MEDS: OSELTAMIVIR PHOSPHATE 30 MG CAPSULE PO ×3 (02:17→22:18)
[2024-11-06] MEDS: GUAIFENESIN 600 MG TAB.ER.12H PO ×3 (02:17→22:18)
[2024-11-06] MEDS: ACETAMINOPHEN 325 MG TABLET 650 MG PO (02:17)
--- OUTSIDE RECORDS SUMMARY | 2024-11-06 06:00 | XMS_ITS | CCD ---
Author Organization [facility] CliniSywa Care Team Providers Care Fisher Diving Name Role Phone DR LONI COVARRUBIAS Admitting [...] Unavailable MARCI, DR IVEY Primary Care Unavailable [employer] Consulting Unavailable MARCI, DR IVEY Admitting [...] Unavailable Loni Covarrubias MD Primary Care Provider [phone] Loni Covarrubias MD Primary Care Provider [phone] LONI COVARRUBIAS Primary Care Unavailable MARCY ESTRELLA [...] Unavailable Loni Covarrubias MD Primary Care Provider [phone] DARIUSZ RICH Attending Unavailable Allergies Allergy Classification Reported Allergen(s) Allergy Type Date of Onset Reaction(s) Facility (2 sources) black walnut pollen extract; Translations: [GAVVYEH-PRS-VTQ REDUCTASE INHIBITORS] Drug Allergy 02-28-2023 [facility] Repository (8 sources) HMG-CoA reductase inhibitor Drug Allergy 02-28-2023 Unknown [facility] Medications Current Medications Medication Drug Class(es) Dates Sig (Normalized) Sig (Original) [id number] 200 actuat albuterol 0.09 mg/actuat metered dose [...] by mouth once daily. fish oil concentrate ([place]-3) 300 MG capsule (2 sources) fish oil concentrate ([place]-3) 300 MG capsule Take 550 mg by [...] sources) Vitamin B12 cyanocobalamin/f olic acid (VITAMIN A06-NJXEQ ACID) 1,000-[address] by sublingual route. 0 Active gabapentin 100 mg oral capsule (10 sources) Anti-epileptic Agent Start: 021 take 1 capsule by mouth once daily as needed gabapentin (NEURONTIN) 100 mg capsule Take 1 capsule by mouth once daily as needed (for sciatica) for up to 180 days. 11/12/2020 Active Comment on above: Take 1 capsule by [facility] once daily as needed (for sciatica) [...] minerals/lutein (CENTRUM SILVER ULTRA WOMEN'S ORAL) omega 6-psa-ruh-fish oil (FI SH OIL) 100-160-1,000 mg cap [...] one(1) tablet d aily. 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] Other Visit Diagnosis: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 Normal [facility] XR SHLDR >/=3V AP/LAURA AP/OTH R RTon [...] - IMPRESSION: MINIMAL DEGENERATIVE CHANGES RIGHT SHOULDER [employer]: [employer] Transcribe Date/Time: Feb 16 2024 2:48P Dictated by : MEHNAZ LOBATO MD This examination was interpreted and the report reviewed and electronically signed by: MEHNAZ LOBATO MD on Feb 16 2024 2:49PM EST [id number] Normal [facility] XR Shoulder - right 3 Viewso n 02-16-2024 IMPRESSION: MINIMAL DEGENERATIVE CHANGES RIGHT SHOULDER [employer] Builder: PSC[employer] Transcribe Date/Time: Feb 16 2024 2:48P Dictated by : MEHNAZ LOBATO MD This examination was interpreted and the report reviewed and electronically signed by: MEHNAZ LOBATO MD on Feb 16 2024 2:49PM [facility] DIVISION OF RADIOLOGY * * *Final Report* [...] IMPRESSION IMPRESSION: MINIMAL DEGENERATIVE CHANGES RIGHT SHOULDER [employer] Builder: TAYA Transcribe Date/Time: Feb 16 2024 2:48P Dictated by : MEHNAZ LOBATO MD This examination was interpreted and the report reviewed and electronically signed by: MEHNAZ LOBATO MD on Feb 16 2024 2:49PM EST [facility] Radiology Study observation (narrative) [facility] XR Shoulder - right 3 ViewsO rdered By: Ccf Provider on 02-16-2024 [facility] CNOVon 01-31-2024 CNOV Office Visit (LOORRM ) NEVAEH THOMAS ([id number]) 1945 F Date Time Provider Department 01/31/24 [...] results and radiologist's interpretation, available in the [facility] health record. 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 Normal [facility] XR HIP 3V PELV+ AP/LAT RTon 01-31-2024 [...] lower abdomen. IMPRESSION: Right hip grossly unremarkable. [employer] Builder: PSC[employer] Transcribe Date/Time: Jan 31 2024 2:13P Dictated by : PORFIRIO MURPHY MD This examination was interpreted and the report reviewed and electronically signed by: PORFIRIO MURPHY MD on Jan 31 2024 2:14PM EST [id number] Normal [facility] XR Pelvis and Hip - right AP and Lateral frogon 01-31-2024 IMPRESSION: Right hip grossly unremarkable. [employer] Builder: PSC[employer] Transcribe Date/Time: Jan 31 2024 2:13P [...] abdomen. IMPRESSION IMPRESSION: Right hip grossly unremarkable. [employer] [facility] Transcribe Date/Time: Jan 31 2024 2:13P Dictated by : PORFIRIO MURPHY MD This examination was interpreted and the report reviewed and electronically signed by: PORFIRIO MURPHY MD on Jan 31 2024 2:14PM EST [facility] Radiology Study observation (narrative) [facility] XR Pelvis and Hip - right AP and Lateral frogOrdered By: Ccf Provider on 01-31-2024 [facility] CALCIUMon 12-07-2022 Calcium [Mass/Vol] 9.4 mg/dL Normal 8.5-10.1 [facility] Comment on above: Performed By: #### C RONI, [place] #### [facility] [address] [address] [address] Lori Bautista CREATININEon 12-07-2022 Creatinine [Mass/Vol] 0.64 mg/dL Normal 0.55-1.02 [facility] Comment on above: Performed By: #### C [place], [place] #### [facility] [address] [place] [address] Dr. Lori Bautista EGFR-AF [place] ISLANDER >60 Normal >=60 [facility] Comment on above: Performed By: #### C [place], [place] #### [facility] [address] [address] [address] Lori Bautista EGFR-NON AF [place] ISLANDER >60 Normal >=60 [facility] Comment on above: Performed By: #### C [place], [place] #### [facility] [address] [place] [address] LUNG CANCER SCREENINGon [...] VERONICA DUNCAN Date: 2022-09-10 14:57 Normal [facility] INSULINon 08-28-2022 Insulin 4.3 uIU/mL Normal 2.6-24.9 [facility] Comment on above: Performed By: #### I NSULIN #### [facility] [address] [place] [address] Dr. Lori Bautista CBC AUTO DIFFon 08-27-2022 BASO # 0.1 103/ul Normal 0.0-0.1 [facility] Comment on above: Performed By: #### C BC #### [facility] [address] [place] [address] Dr. Lori Bautista Basophils/100 WBC (Bld) 0.6 % Normal 0.2-2.0 [facility] Comment on above: Performed By: #### C BC #### [facility] [address] [place] [address] Dr. Lori Bautista EO # 0.1 103/ul Normal 0.0-0.7 [facility] Comment on above: Performed By: #### C BC #### [facility] [address] [place] [address] Dr. Lori Bautista Eosinophils/100 WBC (Bld) 0.6 % Critically low 0.9-7.0 [facility] Comment on above: Performed By: #### C BC #### [facility] [address] [place] [address] Dr. Lori Bautista Erythrocyte distribution width (RBC) [Ratio] 13.2 % Normal 11.0-15.0 [facility] Comment on above: Performed By: #### C BC #### [facility] [address] [place] [address] Dr. Lori Bautista Hematocrit (Bld) [Volume fraction] 41.3 % Normal 36.0-48.0 [facility] Comment on above: Performed By: #### C BC #### [facility] [address] [place] [address] Dr. Lori Bautista Hemoglobin (Bld) [Mass/Vol] 13.5 g/dL Normal 12.0-16.0 [facility] Comment on above: Performed By: #### C BC #### [facility] [address] [place] [address] Dr. Lori Bautista IG # 0.02 10e3/ul Normal 0.00-0.03 [facility] Comment on above: Performed By: #### C BC #### [facility] [address] [place] [address] Dr. Lori Bautista IG % 0.3 % Normal 0.0-0.5 [facility] Comment on above: Performed By: #### C BC #### [facility] [address] [place] [address] Dr. Lori Bautista LYMPH # 2.0 103/ul Normal 1.2-3.8 [facility] Comment on above: Performed By: #### C BC #### [facility] [address] [place] [address] Dr. Lori Bautista Lymphocytes/100 WBC (Bld) 25.6 % Normal 20.5-60.0 [facility] Comment on above: Performed By: #### C BC #### [facility] [address] [place] [address] Dr. Lori Bautista MANUAL DIFF REQ NO Normal [facility] Comment on above: Performed By: #### C BC #### [facility] [address] [place] [address] Dr. Lori Bautista MCH (RBC) [Entitic mass] 31.1 pg Normal 26.7-34.0 [facility] Comment on above: Performed By: #### C BC #### [facility] [address] [place] [address] Dr. Lori Bautista MCHC (RBC) [Mass/Vol] 32.7 g/dL Normal 29.9-35.2 [facility] Comment on above: Performed By: #### C BC #### [facility] [address] [place] [address] Dr. Lori Bautista MCV (RBC) [Entitic vol] 95.2 fL Normal 81.0-99.0 [facility] Comment on above: Performed By: #### C BC #### [facility] [address] [place] [address] Dr. Lori Bautista MONO # 0.7 103/ul Normal 0.3-0.8 [facility] Comment on above: Performed By: #### C BC #### [facility] [address] [place] [address] Dr. Lori Bautista Monocytes/100 WBC (Bld) 8.4 % Normal 1.7-12.0 [facility] Comment on above: Performed By: #### C BC #### [facility] [address] [place] [address] Dr. Lori Bautista NEUT # 5.0 103/ul Normal 1.4-6.5 [facility] Comment on above: Performed By: #### C BC #### [facility] [address] [place] [address] Dr. Lori Bautista Neutrophils/100 WBC (Bld) 64.5 % Normal 43.0-75.0 [facility] Comment on above: Performed By: #### C BC #### [facility] [address] [place] [address] Dr. Lori Bautista Platelet mean volume (Bld) [Entitic vol] 9.9 fL Normal 9.5-13.5 [facility] Comment on above: Performed By: #### C BC #### [facility] [address] [address] [address] Lori Bautista PLT 310 103/ul Normal 150-450 [facility] Comment on above: Performed By: #### C BC #### [facility] [address] [address] [address] Lori Bautista RBC 4.34 106/ul Normal 4.20-5.40 [facility] Comment on above: Performed By: #### C BC #### [facility] [address] [address] [address] Lori Bautista WBC 7.8 103/ul Normal 4.0-11.0 [facility] Comment on above: Performed By: #### C BC #### [facility] [address] [address] [address] Lori Bautista FREE THYROXINE INDEX T7on FTI 2.26 Normal 1.30-4.50 [facility] Comment on above: Performed By: #### L IPID, TSH, T7, CMP ####[facility] [address] [address]Dr. Lori Bautista T3U 31.0 % Normal 30.0-39.0 [facility] Comment on above: Performed By: #### L IPID, TSH, T7, CMP ####[facility] [address] [id number]. Lori Bautista T4 [Mass/Vol] 7.30 ug/dL Normal 4.80-13.[address] [facility] Comment on above: Performed By: #### L IPID, TSH, T7, CMP ####[facility] [address] [address]Dr. Lori Bautista GLYCOHEMOGLOBIN A1Con 2021 ADA RECOMMENDATION SEE BELOW Normal [facility] Comment on above: Result Comment: ADA RECOMMENDED LIMIT 4.0 - 6.0 ADA THERAPEUTIC TARGET < 7.0 ACTION SUGGESTED > 7.0 Performed By: #### A 1C #### [facility] [address] [place], [place] [address] Dr. Lori Bautista Glucose [Mass/Vol] 117 mg/dL Normal [facility] Comment on above: Performed By: #### A 1C #### [facility] [address] [place], [place] [address] Dr. Lori Bautista HbA1c (Bld) [Mass fraction] 5.7 % Normal 4.5-6.2 [facility] Comment on above: Performed By: #### A 1C #### [facility] [address] [address] [address] Lori Bautista IRONon 08-27-2022 Iron [Mass/Vol] 105.0 ug/dL Normal 50.0-170.0 [facility] Comment on above: Performed By: #### I VANDA KYLE ####[facility] [address] [id number]. Lori Bautista LIPID PROFILEon 08-27-2022 CHOL-HDL RATIO NORM SEE BELOW Normal [facility] Comment on above: Result Comment: 3.3 - 4.4 LOW RISK 4.4 - 7.1 AVERAGE RISK 7.1 - 11.0 MODERATE RISK >11.0 HIGH RISK Performed By: #### L IPID, TSH, T7, CMP ####[facility] [address] [place], [place] [address]Cf. Lori Bautista Cholesterol [Mass/Vol] 186 mg/dL Normal <=200 [facility] Comment on above: Performed By: #### L IPID, TSH, T7, CMP ####[facility] [address] [place], [place] [address]Mp. Lori Bautista Cholesterol in HDL [Mass/Vol] 55 mg/dL Normal 40-60 [facility] Comment on above: Performed By: #### L IPID, TSH, T7, CMP ####[facility] [address] [place], [place] [address]ErClarence Bautista Cholesterol in LDL [Mass/Vol] 116.4 mg/dL Normal [facility] Comment on above: Performed By: #### L IPID, TSH, T7, CMP ####[facility] [address] [id number]. Lori Bautista Cholesterol.total/Ch olesterol in HDL [Mass ratio] 3.4 {ratio} Normal [facility] Comment on above: Performed By: #### L IPID, TSH, T7, CMP ####[facility] [address] [id number]. Lori Bautista HDL NORMAL > or = 60 mg/dl - LO W CARDIOVASCULAR RISK <40 mg/dl - HIGH CARDIOVASCULAR RISK Normal [facility] Comment on above: Performed By: #### L IPID, TSH, T7, CMP ####[facility] [address] [address]Dr. Lori Bautista LDL CALC NORMAL SEE BELOW Normal [facility] Comment on above: Result Comment: <100 mg/dl OPTIMAL 100 - 129 mg/dl NEAR OR ABOVE OPTIMAL 130 - 159 mg/dl BORDERLINE HIGH 160 - 189 mg/dl HIGH >190 mg/dl VERY HIGH Performed By: #### L IPID, TSH, T7, CMP ####[facility] [address] [id number]. Lori Bautista Triglyceride [Mass/Vol] 73 mg/dL Normal <=150 [facility] Comment on above: Performed By: #### L IPID, TSH, T7, CMP ####[facility] [address] [id number]. Lori Bautista VLDL CALC 14.6 mg/dL Normal [facility] Comment on above: Performed By: #### L IPID, TSH, T7, CMP ####[facility] [address] [id number]. Lori Bautista PROF 14(COMP METB)on 022 Albumin [Mass/Vol] 3.9 g/dL Normal 3.4-5.0 [facility] Comment on above: Performed By: #### L IPID, TSH, T7, CMP ####[facility] [address] [id number]. Lori Bautista Albumin/Globulin [Mass ratio] 1.2 {ratio} Normal [facility] Comment on above: Performed By: #### L IPID, TSH, T7, CMP ####[facility] [address] [place], [place] [address]Dr. Lori Bautista ALP [Catalytic activity/Vol] 68 U/L Normal 46-116 [facility] Comment on above: Performed By: #### L IPID, TSH, T7, CMP ####[facility] [address] [place], [place] [address]Dr. Lori Bautista ALT [Catalytic activity/Vol] 20 U/L Normal 14-59 [facility] Comment on above: Performed By: #### L IPID, TSH, T7, CMP ####[facility] [address] [place], [place] [address]Dr. Lori Bautista Anion gap [Moles/Vol] 8.2 mmol/L Normal [facility] Comment on above: Performed By: #### L IPID, TSH, T7, CMP ####[facility] [address] [place], [place] [address]Dr. Kimcira Bautista AST [Catalytic activity/Vol] 22 U/L Normal 15-37 [facility] Comment on above: Performed By: #### L IPID, TSH, T7, CMP ####[facility] [address] [place], [place] [address]Dr. Lori Bautista Bilirubin [Mass/Vol] 0.3 mg/dL Normal 0.2-1.0 [facility] Comment on above: Performed By: #### L IPID, TSH, T7, CMP ####[facility] [address] [place], [place] [address]Dr. Lori Bautista Calcium [Mass/Vol] 9.2 mg/dL Normal 8.5-10.1 [facility] Comment on above: Performed By: #### L IPID, TSH, T7, CMP ####[facility] [address] [place], [place] [address]Dr. Lori Bautista Chloride [Moles/Vol] 105 mmol/L Normal 98-107 [facility] Comment on above: Performed By: #### L IPID, TSH, T7, CMP ####[facility] [address] [address]Dr. Lori Michele CO2 [Moles/Vol] 30.0 mmol/L Normal 21.0-32.0 [facility] Comment on above: Performed By: #### L IPID, TSH, T7, CMP ####[facility] [address] [place], [place] [address]Dr. Lori Bautista Creatinine [Mass/Vol] 0.67 mg/dL Normal 0.55-1.02 [facility] Comment on above: Performed By: #### L IPID, TSH, T7, CMP ####[facility] [address] [place], [place] [address]Dr. Lori Bautista EGFR-AF [place]LANDER >60 Normal >=60 [facility] Comment on above: Performed By: #### L IPID, TSH, T7, CMP ####[facility] [address] [place], [place] [address]Dr. Lori Bautista EGFR-NON AF [place]LANDER >60 Normal >=60 [facility] Comment on above: Performed By: #### L IPID, TSH, T7, CMP ####[facility] [address] [place], [place] [address]Dr. Lori Bautista Globulin (S) [Mass/Vol] 3.3 g/dL Normal [facility] Comment on above: Performed By: #### L IPID, TSH, T7, CMP ####[facility] [address] [place], [place] [address]Dr. Lori Bautista Glucose [Mass/Vol] 84 mg/dL Normal 74-106 [facility] Comment on above: Performed By: #### L IPID, TSH, T7, CMP ####[facility] [address] [place], [place] [address]Dr. Lori Bautista Potassium [Moles/Vol] 4.2 mmol/L Normal 3.5-5.1 [facility] Comment on above: Performed By: #### L IPID, TSH, T7, CMP ####[facility] [address] [place], [place] [address]Dr. Lori Bautista Protein [Mass/Vol] 7.2 g/dL Normal 6.4-8.2 [facility] Comment on above: Performed By: #### L IPID, TSH, T7, CMP ####[facility] [address] [address]Dr. Lori Bautista Sodium [Moles/Vol] 139 mmol/L Normal 136-145 [facility] Comment on above: Performed By: #### L IPID, TSH, T7, CMP ####[facility] [address] [place], [place] [address]Dr. Lori Bautista Urea nitrogen [Mass/Vol] 18.0 mg/dL Normal 7.0-18.0 [facility] Comment on above: Performed By: #### L IPID, TSH, T7, CMP ####[facility] [address] [place], [place] [address]Dr. Lori Bautista Urea nitrogen/Creatinine [Mass ratio] 26.9 mg/mg Normal [facility] Comment on above: Performed By: #### L IPID, TSH, T7, CMP ####[facility] [address] [place], [place] [address]Dr. Lori Bautista TSHon 08-27-2022 TSH 1.615 uIU/mL Normal 0.358-3.740 [facility] [place] [facility] Comment on above: Performed By: #### L IPID, TSH, T7, CMP ####[facility] [address] [place], [place] [address]Dr. Lori Bautista VITAMIN D 25 OHon 08-27-2022 VIT D 25-OH 73.1 ng/mL Normal [facility] Comment on above: Performed By: #### I SAROJ VITAD ####[facility] [address] [place], [place] [address]Dr. Lori Bautista VIT D RANGES SEE BELOW Normal [facility] Comment on above: Result Comment: <20 ng/mL Vit D deficient 20 - <30 ng/mL Vit D insufficient 30 - 100 ng/mL Vit D sufficient >100 ng/mL Potential Toxicity Performed By: #### I SAROJ VITAD ####[facility] [address] [place], [place] [address]Rd. Lori Bautista MG MAMM SCREEN 3D APPLE CADon 08-04-2022 MG MAMM SCREEN 3D APPLE CAD Patient: NEVAEH THOMAS Exam Date: 08/04/2022 : 1945 Gender:F Ordering : DR CATALINA CERVANTES Admission #: [id number] Family : Order #: [id number] CLICK HERE TO VIEW EXAM RADIOLOGY REPORT [...] lung cancer at age 84. LOCATION: [facility] BREAST COMPOSITION: Heterogeneously dense,which may obscure [...] MD on 08/04/2022 at 13:25 Normal [facility] Covid-19 PCR (CVDTBH)on SARS-CoV-2 (COVID-19) RNA PABLO+probe Ql (Unsp spec) Not detected Normal NOT DETECTED [facility] Comment on above: Result Comment: This test is not yet approved or cleared by the [place] FDA. When there are no FDA-approved or cleared tests available, and other criteria are met, FDA can make tests available under an emergency access mechanism called an Emergency Use Authorization (EUA). The EUA for this test is supported by the [place] of Health and Human Service's (HHS's) declaration [...] SARS-CoV-2. Performed By: #### C VDTBH #### [facility] [address] [address] [address] Lori Bautista SYMPTOMATIC COVID-19 ANTIGEN on 05-12-2022 EUA Statement SEE BELOW Normal [facility] [place] [facility] Comment on above: Result Comment: This [...] sooner. Performed By: #### C VDAGS #### [facility] [address] [address] [address] Lori Bautista SARS-CoV-2 (COVID-19) RNA PABLO+probe Ql (Unsp spec) Negative Normal NEGATIVE [facility] Comment on above: Performed By: #### C VDAGS #### [facility] [id number] Lori Bautista CALCIUMon 05-04-2022 Calcium [Mass/Vol] 9.6 mg/dL Normal 8.5-10.1 [facility] Comment on above: Performed By: #### C RONI, [place] ####[facility] [address] [id number]. Lori Bautista CREATININEon 05-04-2022 Creatinine [Mass/Vol] 0.68 mg/dL Normal 0.55-1.02 [facility] Comment on above: Performed By: #### LAZARUS LOBO ####[facility] [id number] [place], [place] [address]Rc. Lori Bautista EGFR-AF [place] Normal >=60 [facility] Comment on above: Performed By: #### LAZARUS LOBO ####[facility] [address] [place], [place] [address]Zv. Lori Bautista EGFR-NON AF [place] Normal >=60 [facility] Comment on above: Performed By: #### LAZARUS LOBO ####[facility] [address] [place], [place] [address]Sy. Lori Bautista XR DEXA BONE DENSITYon 03-29 [...] by: ABBE WEBSTER Date: 2022-03-29 12:43 Normal [facility] XR KUB 1 VIEWon 12-18-2021 XR [...] by: ABBE WEBSTER Date: 2021-12-18 15:43 Normal [facility] Encounters Encounter Date Encounter Type Care Provider Facility Start: 10-02-2024 End: 10-02-2024 Office outpatient new 30 minutes Dariusz Rich DPM Work Phone: [facility] Comment on above: Pain of right foot ( Primary Dx); Plantar keratosis; Right foot pain; Corns and callosities Start: 10-02-2024 End: 10-02-2024 ambulatory DARIUSZ RICH Not Available Start: 03-27-2024 End: 03-27-2024 ambulatory [facility] Facility:[facility] Start: 03-27-2024 End: 03-27-2024 Patient encounter procedure Marcy Estrella DO Work Phone: Orthopaedics Comment on above: Tendinopathy of righ t rotator cuff (Primary Dx); Degenerative tear of acetabular labrum Start: 03-05-2024 End: 03-05-2024 ambulatory [facility] Facility:[facility] Start: 03-05-2024 End: 03-05-2024 Patient encounter [...] Start: 01-31-2024 End: 01-31-2024 ambulatory LONI COVARRUBIAS Facility:[facility] Start: 01-31-2024 End: 01-31-2024 Patient encounter [...] DTaP,Tdap,Td Vaccine (3 - Td or Tdap) [facility] Start: 02-23-2026 OCT MACULA CIRRUS OU (BOTH EYES) OCT MACULA CIRRUS OU (BOTH EYES) [facility] Imaging Routine 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 Expected: 02/23/2026 [facility] Work Phone: Comment on above: Expected: 02/23/2026 Start: 03-06-2025 End: 03-06-2025 Patient encounter procedure 03/06/2025 1:30 PM EDT Office Visit [facility] Op[facility]mology [address] [place], [place] [id number] Catalino London S, OD [address] [place] [address] Annual Eye exam Ophthalmology Comment on above: Annual Eye exam Start: 02-17-2025 OCT MACULA CIRRUS OU (BOTH EYES) OCT MACULA CIRRUS OU (BOTH EYES) [facility] Imaging Routine 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 Expected: 02/17/2025 [facility] Work Phone: Comment on above: Expected: 02/17/2025 Start: 07-08-2024 Covid-19 Vaccine ( season) Covid-19 Vaccine ( season) [facility] Start: 07-08-2024 Influenza vaccination C [facility] Start: 05-27-2024 Diabetes Screening Diabetes Screenin g [facility] Start: 03-27-2024 End: 03-27-2024 Patient encounter procedure 03/27/2024 1:15 PM EDT Office Visit Orthopaedics [address] [place] [address] Marcy Estrella DO [address] [place] [address] 8 week right hip pain Orthopaedics Comment on above: 8 week right hip dave n Start: 11-07-2023 Advance Directive Discussion Advance Directive Discussion [facility] Start: 11-07-2023 Behavioral Health Screening Behavioral Health Screening [facility] Start: 11-07-2023 Depression Assessment Depression Ass essment [facility] Start: 07-08-2023 Covid-19 Vaccine () Covid-19 Vaccine () [facility] Start: 07-08-2023 Influenza vaccination Influenza Vacc ine (#1) [facility] Start: 11-07-2022 ADVANCE DIRECTIVE DISCUSSION ADVANCE DIRECTIVE DISCUSSION [facility] Start: 11-07-2022 DEPRESSION ASSESSMENT DEPRESSION ASS ESSMENT [facility] Start: 05-03-2022 COVID-19 VACCINE (4 - Booster for Pfizer series) COVID-19 VACCINE (4 - Booster for Pfizer series) [facility] Start: 02-11-2012 BONE DENSITY BONE DENSITY [facility] Start: 02-11-2012 Screening for osteoporosis Bone Density Screening [facility] Start: 2007 RSV Vaccine (1 - 1-dose 60+ series) RSV Vaccine (1 - 1-dose 60+ series) [facility] Start: 1997 Influenza vaccination LUNG CANCER [facility] Start: 1997 Screening for malignant neoplasm of lung Lung Cancer Screening [facility] Start: 1997 SHINGRIX VACCINE (1 of 2) SHINGRIX VACCINE (1 of 2) [facility] Start: 02-11-1992 DIABETES SCREEN DIABETES SCREEN [facility] Start: 1966 Urine microalbumin profile DTAP,TDAP,TD (1 - Tdap) [facility] Start: 1965 ANNUAL PCP TEAM CHRONIC DISEASE VISIT ANNUAL PCP TEAM CHRONIC DISEASE VISIT [facility] Start: 1965 Anxiety Screening Anxiety Screening [facility] Start: 1965 Depression Screening Depression Scre ening [facility] Start: 1965 HEPATITIS C SCREENING HEPATITIS C [facility] Start: 1965 Hepatitis C screening Hepatitis C [facility] Start: 1965 SPIROMETRY SPIROMETRY [facility] Start: 1953 PNEUMOCOCCAL: 65+ (1 - PCV) PNEUMOCOCCAL: 65+ (1 - PCV) [facility] OCT MACULA CIRRUS OU (BOTH EYES) OCT MACULA CIRRUS OU (BOTH EYES) [facility] Imaging Routine 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 02/28/2023 5:04 PM EDT [facility] Work Phone: [facility] Immunizations Immunization Date Immunization Notes Care Provider Lulu diaz 08-07-2022 influenza virus vacc ine, unspecified formulation Marcy Estrella DO Work Phone: [facility] Payers Date Payer Category Payer Medicare (Managed Care) [employer] Member Subscriber Plan / Payer (Effective 2023-Present) Name: Nevaeh Thomas Relation to Subscriber: Self Name: Nevaeh Thomas Payer ID: Not on file Group ID: [id number] Type: Not on file Address: [facility] [id number] [id number] 2020 Unknown [id number] 1959 Unknown [id number] 1947 Unknown [id number] .[id number] 1947 Unknown [id number] .[id number] 1947 Unknown [id number] .2.593 1947 Unknown [id number] .2.593 1947 Unknown [id number] .2.593 1947 Unknown [id number] .2.593 1947 Unknown [id number] .2.593 1947 Unknown [id number] .[id number] 1947 Unknown [id number] .[id number] Social History Date Type Detail Facility Start: 11-12-2020 End: 10-02-2024 Tobacco smoking status NHIS Smokes tobacco daily [facility] Work Phone: History of tobacco use Cigarette Smoker C [facility] Work Phone: Start: 11-12-2020 End: 10-02-2024 Cigarettes smoked current (pack per day) - Reported 1 [facility] Start: 11-12-2020 End: 10-02-2024 Tobacco use and exposure Smokeless tobacco non-user [facility] Work Phone: Start: 02-28-2023 End: 03-05-2024 Alcohol intake Lifetime non-drinker (finding) [facility] Start: 09-09-2020 History SDOH Alcohol Frequency 1 [facility] Start: 1945 Sex Assigned At Female [facility] Start: 09-09-2020 End: 10-02-2024 Alcohol Use Disorder Identification Test - Consumption [AUDIT-C] [facility] How often to you hav e a drink containing alcohol? Never [facility] Average Number of Drinks Not on file [facility] Start: 09-08-2020 Gender identity Identifies as female gender (finding) [facility] Start: 09-08-2020 Sexual orientation Heterosexual (finding) [facility] Start: 10-02-2024 Alcoholic beverage intake Ex-drinker (finding) [facility] Procedure Code Equipment Code Equipment Origin al Text Equipment Identifier Dates Lens Iol 0d +15 Derik Uv Abs - [id number] Start: 11-19-2020 Comment on above: Description: -0.26 Lens Iol 0d +15 Derik Uv Abs - [id number] Start: 12-03-2020 Comment on above: Description: [...] 6. Reappoint p.r.n. documented in this encounter [facility] 03-27-2024 Note HNO ID: [id number] Author: MARCY ESTRELLA DO Service: ? Author [...] Follow-up as needed Procedures Marcy Estrella DO [facility] 03-27-2024 History of Present illness Narrative Nevaeh [...] Marcy Estrella DO documented in this encounter [facility] 03-05-2024 Note HNO ID: [id number] Author: CATALINO LONDON OD Service: ? Author Type: FLOWER GROWER Type: Progress Notes Filed: 03/05/2024 17:08 Note Text: Documentation transcribed from Paper notes from [facility] ASSESSMENT/PLAN: 1. Keratoconjunctivitis sicca of both eyes [...] Z96.1 Monitor March 05, 2024 5:03 PM [facility] 03-05-2024 History of Present illness Narrative Documentation transcribed from Paper notes from [facility] ASSESSMENT/PLAN: 1. Keratoconjunctivitis sicca of both eyes [...] 2024 5:03 PM documented in this encounter [facility] 02-16-2024 Note HNO ID: [id number] Author: JUDY LOPEZ RT(R) Service: ? Author [...] PATIENT PRESENTS WITH AN IMPLANTABLE OR ATTACHED SAND CONDITIONER: No RADIOLOGY DEPARTMENT: General X-ray: Exam(s) Completed: Upper Extremity X-Ray(s): Shoulder, AP / TRUE AP / AXILLARY right PERIPHERAL IV DATA: Not applicable SIGNED BY: RT Anthony(R) February 16, 2024 1:02 PM [facility] 02-16-2024 Note HNO ID: [id number] Author: MARCY ESTRELLA DO Service: ? Author [...] results and radiologist's interpretation, available in the [facility] health record. Images were reviewed with the [...] making as documented. Marcy D Estrella, DO [facility] 02-16-2024 History of Present illness Narrative Radiology [...] PATIENT PRESENTS WITH AN IMPLANTABLE OR ATTACHED SAND CONDITIONER: No RADIOLOGY DEPARTMENT: General X-ray: Exam(s) Completed: Upper Extremity X-Ray(s): Shoulder, AP / TRUE AP / AXILLARY right PERIPHERAL IV DATA: Not applicable SIGNED BY: RT Anthony(R) February 16, 2024 1:02 PM documented in this encounter [facility] 02-16-2024 History of Present illness Narrative [...] results and radiologist's interpretation, available in the [facility] health record. Images were reviewed with the [...] Marcy Estrella DO documented in this encounter [facility] 01-31-2024 Note HNO ID: [id number] Author: MARCY ESTRELLA, DO Service: ? Author [...] results and radiologist's interpretation, available in the [facility] health record. Images were reviewed with the [...] decision making as documented. Marcy Estrella DO [facility] 01-31-2024 Note HNO ID: [id number] Author: MARTHA CROOKS RT(R) Service: ? Author [...] PATIENT PRESENTS WITH AN IMPLANTABLE OR ATTACHED SAND CONDITIONER: No RADIOLOGY DEPARTMENT: General X-ray: Exam(s) Completed: Pelvis X-Ray: Pelvis with Hip Right PERIPHERAL IV DATA: Not applicable SIGNED BY: RT Elisa(R) January 31, 2024 2:01 PM [facility] 01-31-2024 History of Present illness Narrative Images [...] results and radiologist's interpretation, available in the [facility] health record. Images were reviewed with the [...] Marcy Estrella DO documented in this encounter [facility] 02-28-2023 History of Present illness Narrative [...] 2023 1:19 PM documented in this encounter [facility] Evaluation note Diagnosis Vitreous degeneration, bilateral- Primary Floaters in visual field, bilateral Keratoconjunctivitis sicca of both eyes not specified as Sjogren's Keratoconjunctivitis sicca, not specified as Sjogren's SPK (superficial punctate keratitis), bilateral Pseudophakia of both eyes Lens replaced by other means Retinal pigment epithelial mottling of macula Other retinal disorders 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 [facility] Diagnosis Degenerative tear of acetabular labrum- Primary Pain in right hip Pain in joint, pelvic region and thigh Primary osteoarthritis of right hip Primary localized osteoarthrosis, pelvic region and thigh [facility] Tendinopathy of right rotator cuff- Primary Impingement syndrome of right shoulder Other affections of shoulder region, not elsewhere classified [facility] Diagnosis Keratoconjunctivitis sicca of both eyes not specified as Sjogren's- Primary Keratoconjunctivitis sicca, not specified as Sjogren's Retinal pigment epithelial mottling of macula Other retinal disorders 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, bilateral Pseudophakia of both eyes Lens replaced by other means [facility] Diagnosis Tendinopathy of right rotator cuff- Primary Degenerative tear of acetabular labrum documented in this encounter [facility] note* Diagnosis Preop examination- Primary Preoperative examination, unspecified Combined forms of age-related cataract of both eyes Other and combined forms of senile cataract Chronic obstructive pulmonary disease, unspecified COPD type (HCC) Gastroesophageal reflux disease, unspecified whether esophagitis present Hyperlipidemia, unspecified hyperlipidemia type Tobacco abuse Tobacco use disorder Acute pain of right shoulder documented in this encounter [facility] note* Diagnosis Preop examination- Primary Preoperative examination, unspecified Combined forms of age-related cataract of both eyes Other and combined forms of senile cataract Chronic obstructive pulmonary disease, unspecified COPD type (HCC) Gastroesophageal reflux disease, unspecified whether esophagitis present Hyperlipidemia, unspecified hyperlipidemia type Tobacco abuse Tobacco use disorder Pain Generalized pain documented in this encounter [facility] note* Diagnosis Pain of right foot- Primary Plantar keratosis Right foot pain Pain in soft tissues of limb Corns and callosities documented in this encounter [facility] for referral (narrative)* Diagnostic Procedure Only (Routine) - Closed Specialty Diagnoses / Procedures Referred By Contac t Referred To Contact XR IMAGING Diagnoses Acute pain of right shoulder Procedures XR SHOULDER GENERAL 3V OR MORE AP/TRUE AP/OTHER RIGHT RADEX SHOULDER COMPLETE MINIMUM 2 VIEWS Marcy Estrella DO [address] [place] [address] [place] [address] Referral ID Status Reason Start Date Expiration Date V isits Requested Visits Authorized [id number] Closed Auto-Generate d Referral 02/07/2024 03/08/2025 1 1 [facility] for referral (narrative)* Diagnostic Procedure Only (Routine) - Closed Specialty Diagnoses / Procedures Referred By Contac t Referred To Contact XR IMAGING Diagnoses Pain Procedures XR HIP GENERAL 3V PELV/AP/LAT RIGHT RADEX HIP UNILATERAL WITH PELVIS 2-3 VIEWS Marcy Estrella DO [address] [place] [address] [place] [address] Referral ID Status Reason Start Date Expiration Date V isits Requested Visits Authorized [id number] Closed Auto-Generate d Referral 01/24/2024 02/22/2025 1 1 [facility] for visit Narrative* Diagnostic Procedure Only (Routine) - Closed Specialty Diagnoses / Procedures Referred By Contac t Referred To Contact XR IMAGING Diagnoses Acute pain of right shoulder Procedures XR SHOULDER GENERAL 3V OR MORE AP/TRUE AP/OTHER RIGHT RADEX SHOULDER COMPLETE MINIMUM 2 VIEWS Marcy Estrella, DO [address] [place] [address] [place] [address] Referral ID Status Reason Start Date Expiration Date V isits Requested Visits Authorized [id number] Closed Auto-Generate d Referral 02/07/2024 03/08/2025 1 1 [facility] for visit Narrative* Diagnostic Procedure Only (Routine) - Closed Specialty Diagnoses / Procedures Referred By Contac t Referred To Contact XR IMAGING Diagnoses Pain Procedures XR HIP GENERAL 3V PELV/AP/LAT RIGHT RADEX HIP UNILATERAL WITH PELVIS 2-3 VIEWS Marcy Estrella, DO [address] [place] [address] [place] [address] Referral ID Status Reason Start Date Expiration Date V isits Requested Visits Authorized [id number] Closed Auto-Generate d Referral 01/24/2024 02/22/2025 1 1 [facility] Summary Purpose Family History No Family [...] COMPLEX 45 MINS Marcy Estrella, DO [address] [place] [address] [facility] [address] [address] Referral ID Status Reason Start Date Expiration Date Visits Requested Visits Authorized [id number] Pending Review Auto-Generat ed Referral 01/31/2024 01/30/2025 1 1 Specialty Diagnoses / Procedures Referred By Milagros maxwell Referred To Contact [facility] Diagnoses Tendinopathy of right rotator cuff Impingement syndrome of right shoulder Procedures CONSULT TO PHYSICAL THERAPY PHYSICAL THERAPY EVALUATION HIGH COMPLEX 45 MINS Marcy Estrella, DO [address] [place] [address] [facility] [address] [address] Referral ID Status Reason Start Date Expiration Date Visits Requested Visits Authorized [id number] Pending Review Auto-Generat ed Referral 02/16/2024 02/15/2025 1 1 Additional Source Comments INFORMATION SOURCE (unrecogn ized section and content) DATE CREATED AUTHOR 12/07/2022 [facility] DATE CREATED AUTHOR AUTHOR'S ORGANIZ ATION 03/29/2024 [facility] DATE CREATED AUTHOR AUTHOR'S ORGANIZ ATION 10/05/2024 [...] alcohol or drug abuse patient.[facility] the event this information is protected by the Federal Confidentiality of Alcohol and Drug Abuse Patient Records regulations: The Federal rules restrict any use of the information to criminally investigate or prosecute any alcohol or drug abuse patient.[facility] the event this information is protected by the Federal Confidentiality of Alcohol and Drug Abuse Patient Records regulations: The Federal rules restrict any use of the information to criminally investigate or prosecute any alcohol or drug abuse patient.[facility] the event this information is protected [...] or prosecute any alcohol or drug abuse patient.[facility] the event this information is protected by the Federal Confidentiality of Alcohol and Drug Abuse Patient Records regulations: The Federal rules restrict any use of the information to criminally investigate or prosecute any alcohol or drug abuse patient.[facility] the event this information is protected by the Federal Confidentiality of Alcohol and Drug Abuse Patient Records regulations: The Federal rules restrict any use of the information to criminally investigate or prosecute any alcohol or drug abuse patient.[facility] the event this information is protected by the Federal Confidentiality of Alcohol and Drug Abuse Patient Records regulations: The Federal rules restrict any use of the information to criminally investigate or prosecute any alcohol or drug abuse patient.[facility] Reason for Visit (unrecogniz ed section and content) Reason Comments Yearly Exam Floaters Both Eyes Reason Comments New Right Hip Pain Reason Comments Radiology XR Reason Comments New Pain (Shoulder Pain) Reason Comments Dry Eye(s) Both Eyes Vitreous Degeneration (Pvd) Reason Comments Established Patient Right Hip Pain Care Teams (unrecognized sec tion and content) Fisher D[employer] Relationship Specialty Start Date End Date Loni Covarrubias MD PCP - General Family Medicine 08/31/10 [employer] Relationship Specialty Start Date End Date Loni Covarrubias MD PCP - General Family Medicine 08/31/10 [employer] Relationship Specialty Start Date End Date Loni Covarrubias MD PCP - General Family Medicine 08/31/10 [employer] Relationship Specialty Start Date End Date Loni Covarrubias MD PCP - General Family Medicine 08/31/10 [employer] Relationship Specialty Start Date End Date Loni Covarrubias MD PCP - General Family Medicine 08/31/10 [employer] Relationship Specialty Start Date End Date Loni Covarrubias MD PCP - General Family Medicine 08/31/10 [employer] Relationship Specialty Start Date End Date Loni Covarrubias MD PCP - General Family Medicine 08/31/10 [employer] Relationship Specialty Start Date End Date Loni Covarrubias MD PCP - General Family Medicine 08/31/10 [employer] Relationship Specialty Start Date End Date Loni Covarrubias MD [address] [place] [id number] PCP - General Family Medicine 10/02/24 FOR [...] BE BASED ON THE PRIMARY CLINICAL RECORDS. [employer] provides no warranty or guarantee of the accuracy or completeness of information in this document.
[2024-11-06 06:48] LABS: Basophils Percent Auto 0.4 % (0.2-2.0); Hematocrit 40.9 % (36.0-48.0); Hemoglobin 13.8 g/dL (12.0-16.0); Immature Granulocytes Abs Auto 0.03 10^3/uL (0.00-0.03); Immature Granulocytes Pct Auto 0.4 % (0.0-0.5); Lymphocytes Absolute Auto 0.4 10^3/uL (1.2-3.8); Lymphocytes Percent Auto 4.6 % (20.5-60.0); Mean Corpuscular HGB Conc 33.7 g/dL (29.9-35.2); Mean Corpuscular Hemoglobin 31.8 pg (26.7-34.0); Mean Corpuscular Volume 94.2 fL (81.0-99.0); Mean Platelet Volume 10.4 fL (9.5-13.5); Monocytes Absolute Auto 0.3 10^3/uL (0.3-0.8); Monocytes Percent Auto 3.1 % (1.7-12.0); Neutrophils Absolute Auto 7.3 10^3/uL (1.4-6.5); Neutrophils Percent Auto 91.5 % (43.0-75.0); Platelet Count 213 10^3/uL (150-450); Red Blood Count 4.34 10^6/uL (4.20-5.40); Red Cell Distribution Width 13.1 % (11.0-15.0)
[2024-11-06 07:03] LABS: Alanine Aminotransferase 18 U/L (14-59); Albumin Level 3.1 g/dL (3.4-5.0); Alkaline Phosphatase 60 U/L (46-116); Aspartate Amino Transferase 27 U/L (15-37); BUN Creatinine Ratio 26.2; Bilirubin Total 0.3 mg/dL (0.2-1.0); Calcium 8.2 mg/dL (8.5-10.1); Carbon Dioxide 26.6 mmol/L (21.0-32.0); Chloride 104 mmol/L (98-107); Estimated GFR (African America >60 (>=60 mL/min/1.73m^2); Estimated GFR (Non-African Ame >60 (>=60 mL/min/1.73m^2); Globulin 3.2 g/dL; Glucose 134 mg/dL (74-106); Potassium 3.6 mmol/L (3.5-5.1); Sodium 143 mmol/L (136-145); Total Protein 6.3 g/dL (6.4-8.2)
--- NOTE | 2024-11-06 09:04 | CM.NOTE ---
Rounds made with Dr. Covarrubias, no discharge for pt today. Pt continues to require oxygen, will attempt to wean oxygen today. Pt does not use home oxygen.
[2024-11-06] MEDS: IPRATROPIUM/ALBUTEROL SULFATE 3 ML AMPUL.NEB IH ×3 (10:54→22:50)
[2024-11-06] MEDS: BUDESONIDE 0.5 MG/2 ML AMPULE NEB IH ×2 (10:54→22:50)
[2024-11-06] MEDS: METHYLPREDNISOLONE SOD SUCC PF 40 MG/ML VIAL 60 MG IVP ×3 (10:59→22:19)
[2024-11-06] MEDS: LEVOFLOXACIN IN DEXTROSE 5 % 750 MG/150 ML PREMIX 100 MG IV (10:59)
[2024-11-06] MEDS: OMEPRAZOLE 40 MG CAPSULE.DR PO (11:05)
[2024-11-06] MEDS: DOCUSATE SODIUM 100 MG CAPSULE PO (11:05)
[2024-11-06] MEDS: EZETIMIBE 10 MG TABLET PO (11:05)
[2024-11-06] MEDS: SIMETHICONE 80 MG TAB.CHEW 120 MG PO (11:06)
[2024-11-06] MEDS: ASPIRIN 81 MG TAB.CHEW PO (11:06)
[2024-11-06] MEDS: GEMFIBROZIL 600 MG TABLET PO ×2 (11:07→22:19)
--- NOTE | 2024-11-06 11:29 | SWNOTE1 ---
SW reviewed OT note and pt is independent.
--- NOTE | 2024-11-06 11:31 | CM.NOTE ---
Important Message From Medicare discussed with pt, pt verbalizes understanding and signs paper. Original given to pt and copy placed in pt's chart.
[2024-11-06 11:44] LABS: BOX Test Reference Lab Firelands; BOX Test Sent Out Sputum Culture
--- NOTE | 2024-11-06 12:25 | P.HP_ITS ---
HPI H&P: HPI History of Present Illness Chief complaint: SOB COPD w/ hypoxia influenza A Narrative: Presented to emergency room with increasing cough and shortness of breath, found to have an acute exacerbation of COPD secondary to acute influenza A When I saw her up in the medical surgical floor, I am used to seeing her in the office, she did have some mild conversational dyspnea based on her baseline from office evaluations, cough throughout the visit evaluation. Complains of dyspnea with any activity. Opioid HPI Opioid Management Most Recent Pain and Opioid Data: Last Pain Scale 2 11/06/24 11:55 11/06/24 Last Pain Intensity 2 11/06/24 11:55 11/06/24 Last Pain Assessment 11/06/24 11:00 Last MAR Pain Assessment 11/06/24 02:17 Last ORT Total Score 0 11/05/24 21:58 11/05/24 Last ORT Risk Category Low Risk 11/05/24 21:58 11/05/24 Review of Systems ROS Status of ROS 10 or more systems reviewed and unremark able except as noted in history and below PFSH PFSH Social History (Updated 11/05/24 @ 22:36 by Tawana Franklin RN) Within the past year, how often did you have a drink containing alcohol: monthly or less Smoking status: Heavy tobacco smoker Non-prescribed substance use: denies use Known occupational exposures/hazards: No Highest level of school completed/degree received: 10th grade Are you now , , , , never or living with a partner: In a typical week, how many times do you talk on the telephone with family, frie nds, or neighbors: 3 or more times per week How often do you get together with friends or relatives: once per week Little interest or pleasure in doing things: not at all Feeling down, depressed, or hopeless: not at all Feel stressed/tense/nervous/anxious/difficulty sleeping: not at all Meds Home Medications and Allergies Home Medications ?Medication ?Instructions ?Recorded ?Confirmed ?Type B-12 Plus 1,000 mcg PO DAILY 11/05/24 11/05/24 History ascorbic acid (vitamin C) 500 mg 500 mg PO DAILY 11/05/24 11/05/24 History tablet (C-500) aspirin 81 mg chewable tablet 81 mg PO DAILY 11/05/24 11/05/24 History biotin 2,500 mcg capsule 2,500 mcg PO DAILY 11/05/24 11/05/24 History calcium citrate-vitamin D3 1 tab PO DAILY 11/05/24 11/05/24 History denosumab 60 mg/mL subcutaneous 60 mg subcut .every 6 months 11/05/24 11/06/24 History syringe (Prolia) docusate sodium 100 mg capsule 100 mg PO DAILY 11/05/24 11/05/24 History (Col-Rite) ezetimibe 10 mg tablet (Zetia) 10 mg PO DAILY 11/05/24 11/05/24 History fluticasone furoate 100 1 inh inhalation DAILY 11/05/24 11/05/24 History mcg-vilanterol 25 mcg/dose inhalation powder (Breo Ellipta) gemfibrozil 600 mg tablet (Lopid) 600 mg PO BID 11/05/24 11/05/24 History glucosamine sulf dipot 1 cap PO DAILY 11/05/24 11/06/24 History chlr,msm,chond 550 mg-C 30 mg-bettye 1 mg capsule (Glucosamine Chondroitin) multivitamin (Daily Multi-Vitamin 1 tab PO DAILY 11/05/24 11/05/24 History tablet) omega-3 300 mg-dha 120 mg-epa 180 1 cap PO DAILY 11/05/24 11/05/24 History mg-fish oil 1,000 mg capsule pantoprazole 40 mg tablet,delayed 40 mg PO DAILY 11/05/24 11/05/24 History release (Protonix) simethicone 125 mg capsule (Gas 125 mg PO DAILY 11/05/24 11/05/24 History Relief (simethicone)) vitamin E 268 mg (400 unit) capsule 268 mg PO DAILY 11/05/24 11/05/24 History Allergies Allergy/AdvReac Type Severity Reaction Status Date / Time No Known Drug Allergies Allergy Verified 11/05/24 19:09 Exam Constitutional Vital Signs, click to edit/add: Last Vital Signs Temp 97.3 F L 11/06/24 10:09 Pulse 76 11/06/24 11:00 Resp 18 11/06/24 10:09 BP 124/67 11/06/24 10:09 Pulse Ox 91 L 11/06/24 11:00 O2 Del Method Room Air 11/06/24 11:00 O2 Flow Rate 2 11/06/24 06:21 Documenting provider has reviewed patient's vital signs: yes Common normals: apparent distress (Mild conversational dyspnea with cough throughout the evaluation) Respiratory Common normals: abnormal respiratory effort (Mild conversational dyspnea) Auscultation: rhonchi and wheezes Cardio Common normals: regular rate and regular rhythm Results Labs Labs: Short CBC 11/05/24 11/06/24 Range/Units 19:15 06:07 WBC 11.5 H 8.0 (4.0-11.0) 10^3/uL Hgb 14.7 13.8 (12.0-16.0) g/dL Hct 44.1 40.9 (36.0-48.0) % Plt Count 219 213 (150-450) 10^3/uL BMP 11/05/24 11/06/24 19:15 06:07 Sodium 136 143 Potassium 3.5 3.6 Chloride 101 104 Carbon Dioxide 27.7 26.6 BUN 16.0 17.0 Creatinine 0.70 0.65 Glucose 103 134 H Calcium 8.9 8.2 L Liver Function 11/05/24 11/06/24 Range/Units 19:15 06:07 Total Bilirubin 0.5 0.3 (0.2-1.0) mg/dL AST 26 27 (15-37) U/L ALT 18 18 (14-59) U/L Alkaline Phosphatase 82 60 (46-116) U/L Albumin 3.8 3.1 L (3.4-5.0) g/dL Assessment and Plan Assessment and Plan (1) Hypoxia: (2) COPD (chronic obstructive pulmonary disease): (3) Influenza A: (4) Acute exacerbation of chronic obstructive pulmonary disease: Plan * Admission findings: Sinus tachycardia, respiratory distress, acute hypoxia with O2 sat of 91% on 2 L, leukocytosis with left shift consistent with bacterial process secondary to an acute exacerbation of COPD secondary to acute influenza A. Acute exacerbation of COPD with hypoxia secondary to acute influenza A but complicated by acute bacterial bronchitis based on left shift on leukocytosis. IV antibiotics, steroids, frequent aerosol treatments, Tamiflu. Try to obtain sputum culture. She does have a productive cough of colored sputum GERD-continue with home medications Hyperlipidemia continue with home medications Admission status: Patient was admitted with acute exacerbation of COPD secondary to influenza A and complicated by acute bacterial bronchitis, still wheezing significantly this morning, still hypoxic with O2 saturation of 91% on 2 L and does not wear supplemental oxygen at home, medically necessary treatment will span 2 midnights. Inpatient status
[2024-11-07] VITALS: BP 119/54; PULSE 111; TEMP 35.9; O2SAT 90
[2024-11-07 02:48] LABS: Bilirubin Urine NEGATIVE (NEGATIVE); Blood Urine NEGATIVE (NEGATIVE); Clarity Urine CLEAR (CLEAR); Color Urine LT. YELLOW (YELLOW); Glucose Urine UA NEGATIVE (NEGATIVE); Ketones Urine NEGATIVE (NEGATIVE); Leukocyte Esterase Urine NEGATIVE (NEGATIVE); Nitrite Urine NEGATIVE (NEGATIVE); Protein Urine NEGATIVE (NEG/TRACE); Urine Microscopic Indicated NO; Urobilinogen Urine 0.2 EU/dL (0.2-1.0)
[2024-11-07 04:30] VITALS: BP 102/56; PULSE 102; TEMP 36.9; O2SAT 92
[2024-11-07 04:38] VITALS: PULSE 117; O2SAT 94
[2024-11-07] MEDS: IPRATROPIUM/ALBUTEROL SULFATE 3 ML AMPUL.NEB IH (04:38)
[2024-11-07] MEDS: METHYLPREDNISOLONE SOD SUCC PF 40 MG/ML VIAL 60 MG IVP ×2 (05:47→08:20)
[2024-11-07] MEDS: OMEPRAZOLE 40 MG CAPSULE.DR PO (05:53)
[2024-11-07 08:16] LABS: Basophils Percent Auto 0.1 % (0.2-2.0); Hematocrit 38.5 % (36.0-48.0); Hemoglobin 12.9 g/dL (12.0-16.0); Immature Granulocytes Abs Auto 0.06 10^3/uL (0.00-0.03); Immature Granulocytes Pct Auto 0.5 % (0.0-0.5); Lymphocytes Absolute Auto 0.3 10^3/uL (1.2-3.8); Lymphocytes Percent Auto 2.6 % (20.5-60.0); Mean Corpuscular HGB Conc 33.5 g/dL (29.9-35.2); Mean Corpuscular Hemoglobin 31.2 pg (26.7-34.0); Mean Platelet Volume 10.4 fL (9.5-13.5); Monocytes Absolute Auto 0.6 10^3/uL (0.3-0.8); Monocytes Percent Auto 4.7 % (1.7-12.0); Neutrophils Absolute Auto 11.8 10^3/uL (1.4-6.5); Neutrophils Percent Auto 92.1 % (43.0-75.0); Platelet Count 227 10^3/uL (150-450); Red Blood Count 4.14 10^6/uL (4.20-5.40); White Blood Count 12.9 10^3/uL (4.0-11.0)
[2024-11-07] MEDS: ASPIRIN 81 MG TAB.CHEW PO (08:19)
[2024-11-07] MEDS: DOCUSATE SODIUM 100 MG CAPSULE PO (08:19)
[2024-11-07] MEDS: EZETIMIBE 10 MG TABLET PO (08:20)
[2024-11-07] MEDS: GEMFIBROZIL 600 MG TABLET PO (08:20)
[2024-11-07] MEDS: OSELTAMIVIR PHOSPHATE 30 MG CAPSULE PO (08:20)
[2024-11-07] MEDS: SIMETHICONE 80 MG TAB.CHEW 120 MG PO (08:20)
[2024-11-07 08:30] VITALS: BP 123/70; PULSE 104; TEMP 37.1; O2SAT 94
[2024-11-07 08:35] LABS: Anion Gap 11.5; BUN Creatinine Ratio 29.5; Calcium 8.4 mg/dL (8.5-10.1); Carbon Dioxide 28.7 mmol/L (21.0-32.0); Chloride 108 mmol/L (98-107); Estimated GFR (African America >60 (>=60 mL/min/1.73m^2); Estimated GFR (Non-African Ame >60 (>=60 mL/min/1.73m^2); Glucose 130 mg/dL (74-106); Potassium 3.2 mmol/L (3.5-5.1); Sodium 145 mmol/L (136-145)
[2024-11-07] MEDS: GUAIFENESIN 600 MG TAB.ER.12H PO (09:02)
--- NOTE | 2024-11-07 10:41 | P.DS_ITS ---
DS: Providers Provider Date of admission: 11/05/24 21:46 Primary care physician: Dileep Covarrubias MD Consults: 11/06/24 06:09 Consult to Pharmacy Routine Consulting Provider: Reason for consultation: Please [place] me when Med Rec is Updated Has provider been notified: No Occupational Therapy Eval and Treat Routine Reason for consultation: Only if needed for Rehab Has provider been notified: No Physical Therapy Eval and Treat Routine Reason for consultation: Eval and Treat Has provider been notified: No DS: Diagnosis Discharge Diagnosis (1) Hypoxia: (2) COPD (chronic obstructive pulmonary disease): (3) Influenza A: (4) Acute exacerbation of chronic obstructive pulmonary disease: Plan * Admission findings: Sinus tachycardia, respiratory distress, acute hypoxia with O2 sat of 91% on 2 L, leukocytosis with left shift consistent with bacterial process secondary to an acute exacerbation of COPD secondary to acute influenza A. Acute exacerbation of COPD with hypoxia secondary to acute influenza A but complicated by acute bacterial bronchitis based on left shift on leukocytosis. Improved GERD-continue with home medications Hyperlipidemia continue with home medications Admission status: Patient was admitted with acute exacerbation of COPD secondary to influenza A and complicated by acute bacterial bronchitis, still wheezing significantly this morning, still hypoxic with O2 saturation of 91% on 2 L and does not wear supplemental oxygen at home, medically necessary treatment will span 2 midnights. Inpatient status ? DS: Summary Hospital Course Hospital Course: Patient admitted with acute hypoxia secondary to acute exacerbation of COPD secondary to both influenza A and a bacterial process as she had a significant left shift on her leukocytosis. She was placed on aerosol treatments, steroids and antibiotics, she was not improved significantly yesterday in the morning, she was still requiring supplemental oxygen, that was able to wean off later in the day, she was able to maintain off overnight time, she does not wear supplemental oxygen at home, she feels much improved today, lung exam is much improved today, at this point she can be discharged to home in improving condition. Medications see list. Follow-up with me in the office next week. Time Spent with Patient Time attestation: Total time spent providing and/or coordinating discharge services: Exam Constitutional Vital Signs, click to edit/add: Last Vital Signs Temp 98.8 F 11/07/24 08:30 Pulse 104 H 11/07/24 08:30 Resp 16 11/07/24 08:30 BP 123/70 11/07/24 08:30 Pulse Ox 94 L 11/07/24 08:30 O2 Del Method Room Air 11/07/24 08:30 O2 Flow Rate 2 11/06/24 06:21 Documenting provider has reviewed patient's vital signs: yes Common normals: no apparent distress Chest Common normals: inspection of chest normal and palpation of chest normal Respiratory Common normals: normal respiratory effort and no retractions Auscultation: no rhonchi Cardio Common normals: regular rate and regular rhythm DS: Data Data Completed and Pending Labs on day of discharge: Labs from last 24 hours 11/07/24 11/07/24 11/06/24 07:35 02:15 11:10 WBC 12.9 H RBC 4.14 L Hgb 12.9 Hct 38.5 MCV 93.0 MCH 31.2 MCHC 33.5 RDW 13.0 Plt Count 227 MPV 10.4 Neut % (Auto) 92.1 H Lymph % (Auto) 2.6 L Owen % (Auto) 4.7 Eos % (Auto) 0.0 L Baso % (Auto) 0.1 L Neut # (Auto) 11.8 H Lymph # (Auto) 0.3 L Owen # (Auto) 0.6 Eos # (Auto) 0.0 Baso # (Auto) 0.0 Abs Immat Gran (auto) 0.06 H Imm/Tot Granulo (auto) 0.5 Sodium 145 Potassium 3.2 L Chloride 108 H Carbon Dioxide 28.7 Anion Gap 11.5 BUN 18.0 Creatinine 0.61 Est GFR ( Amer) >60 Est GFR (Non-Af Amer) >60 BUN/Creatinine Ratio 29.5 Glucose 130 H Calcium 8.4 L Urine Color Lt. yellow Urine Clarity Clear Urine pH 6.0 Ur Specific [place] 1.010 Urine Protein Negative Urine Glucose (UA) Negative Urine Ketones Negative Urine Occult Blood Negative Urine Nitrite Negative Urine Bilirubin Negative Urine Urobilinogen 0.2 Ur Leukocyte Esterase Negative Ref Lab Order Date 11/06/24 Ref Lab Test Name Sputum culture Ref Test Addition Info [facility] Discharge Plan Discharge Disposition: Home, Self-Care Condition: Fair Discharge Medications: New prednisone 10 mg tablet 50 mg PO DAILY Qty: 47 0RF Rx Instructions: 5/day for 3 days. 4/day for 3 days, 3/day for 3 days, 2/day for 3 days, 1/day for 3 days, 1/2 /day for 4 days levofloxacin 500 mg tablet 500 mg PO DAILY 7 Days Qty: 7 0RF oseltamivir 30 mg Capsule 30 mg PO BID Qty: 6 0RF Continued ezetimibe [Zetia] 10 mg tablet 10 mg PO DAILY pantoprazole [Protonix] 40 mg tablet,delayed release (DR/EC) 40 mg PO DAILY B-12 Plus 1,000 mcg PO DAILY simethicone [Gas Relief (simethicone)] 125 mg capsule 125 mg PO DAILY biotin 2,500 mcg capsule 2,500 mcg PO DAILY ascorbic acid (vitamin C) [C-500] 500 mg tablet 500 mg PO DAILY calcium citrate-vitamin D3 1 tab PO DAILY Glucosamine Chondroitin 550-30-1 mg capsule 1 cap PO DAILY Rx Instructions: 500/400 omega 4-blh-giq-fish oil 300 mg (120 mg- 180mg)-1,000 mg capsule 1 cap PO DAILY Rx Instructions: 550 mg fluticasone furoate-vilanterol [Breo Ellipta] 100-25 mcg/dose blister with device 1 inh inhalation DAILY gemfibrozil [Lopid] 600 mg tablet 600 mg PO BID Prolia 60 mg/mL syringe 60 mg subcut .every 6 months multivitamin [Daily Multi-Vitamin] Tablet 1 tab PO DAILY vitamin E 268 mg (400 unit) capsule 268 mg PO DAILY docusate sodium [Col-Rite] 100 mg capsule 100 mg PO DAILY aspirin 81 mg tablet,chewable 81 mg PO DAILY Activity: resume usual activities as tolerated Diet: advance to your usual diet Print Language: Portuguese Patient Instructions: Influenza (DC), Hypoxia (ED) Forms: Portal Instructions Follow Up Appointments: Please call Dr. Covarrubias's office tomorrow (11/08/24) to schedule a follow up appt. for next week. [phone]
--- NOTE | 2024-11-08 15:41 | CM.DCFOLLOWU ---
1st attempt 11/08/24, no answer
--- NOTE | 2024-11-09 16:24 | CM.DCFOLLOWU ---
2nd attempt 11/09/24, no answer
== END 2024-11-07 13:59 | disposition home or self-care (01) | DRG 192 ==
LOC: ER 21:41 → MS 11-06 05:58
PROVIDERS: Registered Nurse; Admitting Provider Family Medicine; Emergency Provider Emergency Medicine; PCP Family Medicine; Visit Provider Family Medicine
DX: J44.1 Chronic obstructive pulmonary disease with (acute) exacerbation (principal); J10.1 Influenza due to other identified influenza virus with other respiratory manifestations; J44.0 Chronic obstructive pulmonary disease with (acute) lower respiratory infection; J20.9 Acute bronchitis, unspecified; K21.9 Gastro-esophageal reflux disease without esophagitis; E78.5 Hyperlipidemia, unspecified; R09.02 Hypoxemia; F17.210 Nicotine dependence, cigarettes, uncomplicated; Z20.822 Contact with and (suspected) exposure to COVID-19; Z79.82 Long term (current) use of aspirin; Z79.51 Long term (current) use of inhaled steroids; Z79.52 Long term (current) use of systemic steroids; Z79.899 Other long term (current) drug therapy
CPT/HCPCS: 36415; 71046; 80048; 80053; 81003; 83605; 83735; 83880; 84484; 85007; 85025; 85027; 85378; 85610; 87040; 87070; 87150; 87205; 87420; 87804; 87811; 89220; 93005; 94640; 94667; 94668; 94761; 96374; 97161; 99285; J2919

== ENCOUNTER 2025-01-24 10:36 | Outpatient (OUT) | payer MEDICARE, SELFPAY ==
--- OUTSIDE RECORDS SUMMARY | 2025-01-24 10:54 | XMS_ITS | CCD ---
Author Organization [facility] Care Team Providers Care Guest Services Lead Name Role Phone MARCI, DR IVEY Admitting Unavailable HOY, DR IVEY Attending Unavailable HOY, DR IVEY Consulting Unavailable CHERELLEY, DR IVEY Primary Care Unavailable HOY, DR IVEY Primary Care Unavailable HOY, DR IVEY Admitting Unavailable HOY, DR IVEY Attending Unavailable HOY, DR IVEY Consulting Unavailable WEST, DR VERONICA Christian Consulting Unavailable HIPOLITO FRANCO Admitting Unavailable JOAN, HIPOLITO Attending Unavailable ZIDANIE, DR ABBE Quiroz Consulting Unavailable CHERELLEY, DR IVEY Primary Care Unavailable HIPOLITO FRANCO Consulting Unavailable CHERELLEY, DR IVEY Admitting Unavailable [...] IVEY Primary Care Unavailable HOY, DR IVEY Consulting Unavailable MARCI, DR IVEY Admitting Unavailable MARCI, DR IVEY Attending Unavailable BILLY, DR ARNOLD Admitting Unavailable BILLY, DR ARNOLD Attending Unavailable PERLA, DR VERONICA Christian Consulting Unavailable MARCI, DR IVEY Primary Care Unavailable BILLY, DR ARNOLD Consulting Unavailable Loni Covarrubias MD Primary Care Provider Loni Covarrubias MD Primary Care Provider [phone] Loni Covarrubias MD Primary Care Provider [phone] DARIUSZ RICH Attending Unavailable Loni Covarrubias MD Attending Provider Loni Covarrubias Attending Unavailable Loni Covarrubias Admitting Unavailable CATALINO LONDON Attending Unavaila CATALINO Rahman Referring Unavaila ble LONI COVARRUBIAS Primary Care Unavailable CHENCHO, MARCY D Attending Unavailable LONI COVARRUBIAS M Primary Care Unavailable ESTRELLA, MARCY D Referring Unavailable LONI COVARRUBIAS M Primary Care Unavailable ESTRELLA, MARCY D Attending Unavailable LONI COVARRUBIAS M Primary Care Unavailable ESTRELLA, MARCY D Referring Unavailable LONI COVARRUBIAS M Primary Care Unavailable ESTRELLA, MARCY D Attending Unavailable LONI COVARRUBIAS Referring Unavailable LONI COVARRUBIAS M Primary Care Unavailable Allergies Allergy Classification Reported Allergen(s) Allergy Type Date of Onset Reaction(s) Facility (2 sources) black walnut pollen extract; Translations: [[id number] REDUCTASE INHIBITORS] Drug Allergy 02-28-2023 [facility] Repository (9 sources) HMG-CoA reductase inhibitor Drug Allergy 02-28-2023 Unknown [facility] Medications Current Medications Medication Drug Class(es) Dates Sig (Normalized) Sig (Original) [id number] 200 actuat albuterol 0.09 mg/actuat metered dose inhaler (9 sources) beta2-Adrenergic Agonist Start: 11-12-2020 take 2 puff(s) by inhalation every six hours as needed albuterol HFA (PROAIR HFA) 90 mcg/actuation inhaler 2 Puffs every 6 hours as needed. Take as directed 11/12/2020 Active Comment on above: 2 Puffs every 6 hour s as needed. Take as directed ascorbic acid 500 mg oral tablet (12 sources) Vitamin C Start: 11-07-1999 ascorbic acid, vitamin C, (VITAMIN C) 500 mg tablet 11/07/1999 Active Ascorbic Acid (V itamin C) 500 MG capsule Vitamin C Active aspirin 81 mg delayed release oral tablet (12 sources) Platelet Aggregation Inhibitor, Nonsteroidal Anti-inflammatory Drug Start: 11-07-1989 aspirin, enteric coated (ASPIRIN, ENTERIC COATED) 81 mg EC tablet 11/07/1989 Active biotin 2.5 mg oral capsule (12 sources) Start: 11-07-1989 Biotin 2,500 m cg cap 11/07/1989 Active Biotin 2500 MCG chewable tablet Active calcium carbonate 1250 mg / cholecalciferol 0.01 mg oral tablet (1 source) Vitamin D Start: 12-23-2017 Calcium Carbon ate-Vitamin D3 (Calcium 500 With D) 500 mg(1,250mg) -400 unit Tablet Active 1200 MG PO Daily December 23, 2017 12:00am Calcium Citrate / Vitamin D (2 sources) Calcium Citrate- Vitamin D (CALCIUM CITRATE + D PO) Take by mouth Active CALCIUM CITRATE-VITAMIN D3 ORAL (9 sources) Start: 11-07-1989 CALCIUM CITRAT E-VITAMIN D3 ORAL 11/07/1989 Active Start: 11-07-1989 CALCIUM CITRAT E-VITAMIN D3 ORAL cholecalciferol 0.025 mg oral tablet (1 source) Vitamin D Start: 12-23-2017 take 1 tablet by mouth once daily Cholecalciferol (Vitamin D3) (Vitamin D3) 1,000 unit Tablet Active 1000 UNIT PO Daily December 23, 2017 12:00am chondroitin sulfates 400 mg / glucosamine hydrochloride 500 mg oral tablet (12 sources) Start: 12-23-2017 take 1 tablet by mouth once daily Glucosamine-Chondroiti n 500-400 mg Tablet Active 1 TAB PO Daily December 23, 2017 12:00am Start: 08-07-1990 glucosamine-ch ondroitin 500-400 mg capsule 08/07/1990 Active take 1 tablet by ashok th in the morning, then take 1 tablet by mouth in the evening, then take 1 tablet by mouth at bedtime glucosamine-chondroitin 500-400 MG table t Take 1 tablet by mouth in the morning and 1 tablet in the evening and 1 tablet before bedtime. Active denosumab (11 sources) RANK Ligand Inhibitor Start: 07-08-2020 denosuma b (PROLIA SUBCUTANEOUS) 07/08/2020 Active Start: 07-08-2020 denosumab (PRO KARIS SUBCUTANEOUS) Denosumab (PROLI A SC) Inject under the skin Active docusate sodium 100 mg oral capsule (12 sources) Start: 11-07-1989 docusate sodiu m (COLACE) 100 mg capsule 11/07/1989 Active ezetimibe 10 mg oral tablet (11 sources) Dietary Cholesterol Absorption Inhibitor Start: 07-05-2020 take 1 tablet by mouth once daily ezetimibe (ZETIA) 10 mg tablet Take 10 mg by mouth once daily. 07/05/2020 Active Comment on above: Take 10 mg by mouth once daily. fish oil concentrate (Medicine Bow-3) 300 MG capsule (2 sources) fish oil concentrate (Medicine Bow-3) 300 MG capsule Take 550 mg by mouth Daily Active 30 actuat fluticasone furoate 0.1 mg/actuat / vilanterol 0.025 mg/actuat dry powder inhaler (12 sources) Corticosteroid, beta2-Adrenergic Agonist Start: 09-07-2020 BREO ELLIPTA 100-25 mcg/dose inhaler 09/07/2020 Active Start: 12-23-2017 Fluticasone Fu roate-Vilanterol (Breo Ellipta) 100-25 mcg/dose Blister With Device Active 1 INH INHALATION Q24H December 23, 2017 12:00am Fluticasone Furo ate-Vilanterol (Breo Ellipta) 100-25 MCG/ACT aerosol powder Inhale Active folic acid 0.4 mg / vitamin b12 1 mg sublingual tablet (3 sources) Vitamin B12 cyanocobalamin/f olic acid (VITAMIN Y95-EEAQL ACID) 1,000-[address] by sublingual route. Active gabapentin 100 mg oral capsule (10 sources) Anti-epileptic Agent Start: 021 take 1 capsule by mouth once daily as needed gabapentin (NEURONTIN) 100 mg capsule Take 1 capsule by mouth once daily as needed (for sciatica) for up to 180 days. 11/12/2020 Active Comment on above: Take 1 capsule by mo [facility] once daily as needed (for sciatica) for up to 180 days. gemfibrozil 600 mg oral tablet (12 sources) Peroxisome Proliferator Receptor alpha Agonist Start: 018 take 1 tablet by mouth twice daily Gemfibrozil 600 mg Tablet Active 600 MG PO Twice daily December 23, 2017 12:00am Start: 09-03-2010 [facility] gemfibrozil (LOPID) 600 mg ORAL tablet Take one(1) tablet two(2) times daily. 0 09/03/2010 Active Comment on above: Take one(1) tablet t wo(2) times daily. ibandronic acid 150 mg oral tablet (1 source) Bisphosphonate Start: 8 take 1 tablet by mouth every month Ibandronate 150 mg Tablet Active 150 MG PO every month December 23, 2017 12:00am mecobalamin 1 mg chewable tablet (9 sources) Start: 5 mecobalamin, vitamin B12, 1,000 mcg chew 11/07/2014 Active Multiple Vitamin (multivitamin) tablet (2 sources) take 1 tablet by mouth once daily Multiple Vitamin (multivitamin) tablet Take 1 tablet by mouth Daily Active multivit,iron,minera ls/lutein (CENTRUM SILVER ULTRA WOMEN'S ORAL) (9 sources) Start: 0 multivit,iron,health claims examiner als/lutein (CENTRUM SILVER ULTRA WOMEN'S ORAL) 11/07/1999 Active Start: 11-07-1999 multivit,iron, minerals/lutein (CENTRUM SILVER ULTRA WOMEN'S ORAL) Multivitamin Tablet (1 source) Start: 12-23-2017 take 1 tablet by mouth once daily Multivitamin Tablet Active 1 TAB PO Daily December 23, 2017 12:00am [place] 1-Cow-Adw-Fish Oil (Fish Oil) 1,000 mg (120 mg-180 mg) Capsule (1 source) Start: 12-23-2017 [place] 3-Dha-Ep a-Fish Oil (Fish Oil) 1,000 mg (120 mg-180 mg) Capsule Active 500 MG PO Daily December 23, 2017 12:00am omega 7-fsg-gbu-fish oil (FISH OIL) 100-160-1,000 mg cap (9 sources) omega 3-dha-epa- fish oil (FISH OIL) 100-160-1,000 mg cap Fish Oil Active omega 3-dha-epa- fish oil (FISH OIL) 100-160-1,000 mg cap Fish Oil 0 Active Comment on above: Fish Oil pantoprazole 40 mg delayed release oral tablet (12 sources) Proton Pump Inhibitor Start: 0 take 1 tablet by mouth once daily pantoprazole (PROTONIX) 40 mg ORAL tablet Take one(1) tablet daily. 0 09/03/2010 Active Comment on above: Take one(1) tablet d aily. polyethylene glycol 3350 27796 mg powder for oral solution (2 sources) Osmotic Laxative polyethylene gl ycol, PEG, 3350 (Miralax) 17 g packet Take by mouth Active simethicone 125 mg oral capsule (11 sources) Start: 5 Simethicone 125 mg cap 11/07/2014 Active simethicone (Myl icon) 125 MG chewable tablet 1 (one) time each day at the same time Active vitamin b12 1 mg oral tablet (3 sources) Vitamin B12 Start: 12-23-2017 take 1 tablet by mouth once daily in the evening Cyanocobalamin (Vitamin B-12) (Vitamin B-12) 1,000 mcg Tablet Active 1000 MCG PO Every evening December 23, 2017 12:00am vitamin e 90 mg oral capsule (12 sources) Start: 12-23-2017 take 1 capsule by mouth once daily at bedtime Vitamin E 200 unit Capsule Active 200 UNIT PO Daily at bedtime December 23, 2017 12:00am Start: 11-07-1989 vitamin E mixe d 400 unit cap 11/07/1989 Active take 1 capsule by mo [facility] once daily vitamin E 180 MG (400 UNIT) capsule [...] Comment on above: [facility] naproxen 250 mg oral tablet [...] Chronic Chronic obstructive pulmonary disease and bronchiectasis (12 sources) Chronic obstructive pulmonary disease, unspecified; Translations: [Chronic obstructive lung disease] Onset: 2 11-12-2020 Chronic Disorders of lipid metabolism (13 sources) Pure hypercholesterolemia, unspecified; Translations: [Hyperlipidemia, unspecified] Onset: 2 11-12-2020 Chronic Esophageal disorders (11 sources) Gastroesophageal reflux disease; Translations: [Gastro-esophageal reflux [...] [Pain in right hip] 01-31-2024 Episodic Other skin disorders (2 sources) Callosity; Translations: [Corns and callosities] 10-02-2024 Episodic Residual codes; unclassified (9 sources) Tobacco user; Translations: [Tobacco use] 11-12-2020 Episodic Residual codes; unclassified (1 source) Pain; [...] FORMS OF DYSPNEA] Onset: 09-01-2022 Episodic Other non-traumatic joint disorders (2 sources) Pain in right shoulder; Translations: [Pain in joint, shoulder region] Onset: 02-16-2024 02-16-2024 Episodic Other screening for suspected conditions (not [...] NEOPLSM TRACH BRON LNG] Onset: 08-06-2022 Episodic Residual codes; unclassified (1 source) Pain, unspecified; Translations: [Pain] Onset: 01-31-2024 Episodic Unclassified (1 source) COUGH, UNSPECIFIED; Translations: [COUGH, UNSPECIFIED] Onset: 05-12-2022 Results Test Name Value Interpretation Reference Range Facility Aerobic Cultureon 11-06-2024 Aerobic Culture ORGANISM: Moraxella catarrhalis (O:MORCAT) Beta Lactamase Positive Quantity of Growth Heavy Growth Gram Stain Result 1+ Gram Positive Cocci in Pairs PERFORMED BY: [place] [address] PATHOLOGIST PALLIATIVE NURSE GWEN ABDUL M.D. Normal [facility] Comment on above: Performed By: #### G S, AERC #### [place] [id number] [facility] Gram Stainon 11-06-2024 Microscopic observation Gram stain Nom (Unsp spec) Gram Stain Result 1+ Gram Positive Cocci in Pairs 11/06/2024 1624 PAB PERFORMED BY: [place] [id number] PATHOLOGIST PALLIATIVE NURSE GWEN ABDUL M.D. Normal [facility] Comment on above: Performed By: #### G S, AERC #### [place] [id number] [facility] Gram stain microscopyOrdered By: Loni Covarrubias on 11-06-2024 Microscopic observation Gram stain Nom (Unsp spec) Gram stain microscopy [facility] Adalgisa 04-23-2024 CNPN Telephone (INTMAL) NEVAEH TOHMAS ([id number]) 1945 F Date Time Provider Department 04/23/24 MARCY ESTRELLA INTMAL During your visit today, we recorded the following information about you: Victoria Watson 04/23/2024 11:01 AM Signed April from [facility] is calling Marcy Estrella DO today with concern regarding evaluation that was faxed on February 20. Requested provider's signature to be faxed with it. Please advise. Patient has been identified by name and birthdate. Duration of symptoms: N/A Person calling: April Call patient at: [phone] ext [phone] Was an appointment scheduled: No Closing statement: Results or non-symptom based questions: Thank you for calling [facility], your call will be returned within the next business day. Thank you, Victoria Watson Allergies As of Date: 04/23/2024 Noted Allergy Reaction [id number]-[id number] REDUCTASE INHIBIT*02/28/2023 16 - Unknown Date Reviewed: 03/27/2024 Reviewed by: Marcy Estrella DO - Fully Assessed Reason for Visit: Orders [681] Prescriptions as of 12/10/2024 - cyanocobalamin/folic acid (VITAMIN Y19-OUBAX ACID) 1,000-[address] by sublingual [...] E mixed 400 unit cap - omega 1-stb-ull-fish oil (FISH OIL) 100-160-1,000 mg cap Fish Oil - pantoprazole (PROTONIX) 40 mg ORAL tablet Take one(1) tablet daily. - gemfibrozil (LOPID) 600 mg ORAL tablet Take one(1) tablet two(2) times daily. Problem List As Of Date 04/23/2024 Noted Resolved COPD (chronic obstructive pulmonary disease) (H* GERD (gastroesophageal reflux disease) [K21.9] HLD (hyperlipidemia) [E78.5] Tobacco abuse [Z72.0] Encounter Status:Closed by VICTORIA WATSON on 12/10/24 [facility] CNOVon 03-27-2024 CNOV Office Visit (LOORRM ) JEANETTEJONHNEVAEH DARDEN ([id number]) 1945 F Date Time Provider Department 03/27/24 1:15 PM MARCY ESTRELLAORRJudith During your visit [...] As of Date: 03/27/2024 Noted Allergy Reaction [id number] REDUCTASE INHIBIT*02/28/2023 16 - Unknown Date Reviewed: 03/27/2024 Reviewed by: Marcy Estrella, - Fully Assessed Reason for Visit: Established Patient [175] Right Hip Pain [1554] Primary Visit Diagnosis: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] Other Visit Diagnosis: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 Normal [facility] XR SHLDR >/=3V AP/LAURA AP/OTH R [...] - IMPRESSION: MINIMAL DEGENERATIVE CHANGES RIGHT SHOULDER Stitch Cleaner: TAYA Transcribe Date/Time: Feb 16 2024 2:48P Dictated by : MEHNAZ LOBATO MD This examination was interpreted and the report reviewed and electronically signed by: MEHNAZ LOBATO MD on Feb 16 2024 2:49PM EST [id number] Normal [facility] XR Shoulder - right 3 Viewso n 02-16-2024 IMPRESSION: MINIMAL DEGENERATIVE CHANGES RIGHT SHOULDER Stitch Cleaner: TAYA Transcribe Date/Time: Feb 16 2024 2:48P Dictated by : MEHNAZ LOBATO MD This examination was interpreted and the report reviewed and electronically signed by: MEHNAZ LOBATO MD on Feb 16 2024 2:49PM EST DIVISION OF RADIOLOGY * * *Final [...] significant abnormality. - DIVISION OF RADIOLOGY Provider, Otoniel Peralta [facility] - 02/16/2024 * * *Final Report* [...] IMPRESSION IMPRESSION: MINIMAL DEGENERATIVE CHANGES RIGHT SHOULDER Stitch Cleaner: TAYA Transcribe Date/Time: Feb 16 2024 2:48P Dictated by : MEHNAZ LOBATO MD This examination was interpreted and the report reviewed and electronically signed by: MEHNAZ LOBATO MD on Feb 16 2024 2:49PM EST [facility] Radiology Study observation (narrative) [facility] XR Shoulder - right 3 ViewsO rdered By: [facility] Provider on 02-16-2024 [facility] CNOVon 01-31-2024 CNOV Office Visit (LOORRM ) NEVAEH THOMAS ([id number]) 1945 F Date Time Provider Department 01/31/24 2:15 PM MARCY ESTRELLA LOORR During your visit today, we recorded the following information about you: Marcy Estrella, 01/31/2024 2:59 PM Signed Nevaeh Thomas is [...] results and radiologist's interpretation, available in the [facility] health record. 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 Normal [facility] XR HIP 3V PELV+ AP/LAT RTon [...] lower abdomen. IMPRESSION: Right hip grossly unremarkable. Stitch Cleaner: PSCB Transcribe Date/Time: Jan 31 2024 2:13P Dictated by : PORFIRIO MURPHY MD This examination was interpreted and the report reviewed and electronically signed by: PORFIRIO MURPHY MD on Jan 31 2024 2:14PM EST [id number] Normal [facility] XR Pelvis and Hip - right AP and Lateral frogon 01-31-2024 IMPRESSION: Right hip grossly unremarkable. Stitch Cleaner: PSC Transcribe Date/Time: Jan 31 2024 2:13P Dictated [...] the lower abdomen. DIVISION OF RADIOLOGY Provider, [facility] - 01/31/2024 * * *Final Report* * [...] abdomen. IMPRESSION IMPRESSION: Right hip grossly unremarkable. Stitch Cleaner: TAYA Transcribe Date/Time: Jan 31 2024 2:13P Dictated by : PORFIRIO MURPHY MD This examination was interpreted and the report reviewed and electronically signed by: PORFIRIO MURPHY MD on Jan 31 2024 2:14PM EST [facility] Radiology Study observation (narrative) [facility] XR Pelvis and Hip - right AP and Lateral frogOrdered By: [facility] Provider on 01-31-2024 [facility] CALCIUMon 12-07-2022 Calcium [Mass/Vol] 9.4 mg/dL Normal 8.5-10.1 [facility] Comment on above: Performed By: #### LAZARUS LOBO #### [facility] [address] [place] [address] Dr. Lori Bautista CREATININEon 12-07-2022 Creatinine [Mass/Vol] 0.64 mg/dL Normal 0.55-1.02 [facility] Comment on above: Performed By: #### LAZARUS LOBO #### [facility] [address] [place] [address] Dr. Lori Bautista EGFR-AF [place] >60 Normal >=60 [facility] Comment on above: Performed By: #### LAZARUS LOBO #### [facility] [address] [place] [address] Dr. Lori Bautista EGFR-NON AF [place] >60 Normal >=60 [facility] Comment on above: Performed By: #### Sherry TAMAYO CA #### [facility] [address] [place] [address] LUNG CANCER SCREENINGon [...] DUNCAN Date: 2022-09-10 14:57 Normal [facility] INSULINon 08-28-2022 Insulin 4.3 uIU/mL Normal 2.6-24.9 [facility] Comment on above: Performed By: #### I NSULIN #### [facility] [address] [place] [address] [address] Lori Bautista CBC AUTO DIFFon 08-27-2022 BASO # 0.1 103/ul Normal 0.0-0.1 [facility] Comment on above: Performed By: #### C BC #### [facility] [address] [place], [place] [address] Dr. Lori Bautista Basophils/100 WBC (Bld) 0.6 % Normal 0.2-2.0 [facility] Comment on above: Performed By: #### C BC #### [facility] [address] [place] [address] Dr. Lori Bautista EO # 0.1 103/ul Normal 0.0-0.7 [facility] Comment on above: Performed By: #### C BC #### [facility] [address] [place] [address] Dr. Lori Bautista Eosinophils/100 WBC (Bld) 0.6 % Critically low 0.9-7.0 [facility] Comment on above: Performed By: #### C BC #### [facility] [address] [place] [address] Dr. Lori Bautista Erythrocyte distribution width (RBC) [Ratio] 13.2 % Normal 11.0-15.0 [facility] Comment on above: Performed By: #### C BC #### [facility] [address] [place] [address] Dr. Lori Bautista Hematocrit (Bld) [Volume fraction] 41.3 % Normal 36.0-48.0 [facility] Comment on above: Performed By: #### C BC #### [facility] [address] [place] [address] Dr. Lori Bautista Hemoglobin (Bld) [Mass/Vol] 13.5 g/dL Normal 12.0-16.0 [facility] Comment on above: Performed By: #### C BC #### [facility] [address] [place] [address] Dr. Lori Bautista IG # 0.02 10e3/ul Normal 0.00-0.03 [facility] Comment on above: Performed By: #### C BC #### [facility] [address] [place] [address] Dr. Lori Bautista IG % 0.3 % Normal 0.0-0.5 [facility] Comment on above: Performed By: #### C BC #### [facility] [address] [place] [address] Dr. Lori Bautista LYMPH # 2.0 103/ul Normal 1.2-3.8 [facility] Comment on above: Performed By: #### C BC #### [facility] [address] [place] [address] Dr. Lori Bautista Lymphocytes/100 WBC (Bld) 25.6 % Normal 20.5-60.0 [facility] Comment on above: Performed By: #### C BC #### [facility] [address] [place] [address] Dr. Lori Bautista MANUAL DIFF REQ NO Normal [facility] Comment on above: Performed By: #### C BC #### [facility] [address] [place] [address] Dr. Lori Bautista MCH (RBC) [Entitic mass] 31.1 pg Normal 26.7-34.0 [facility] Comment on above: Performed By: #### C BC #### [facility] [address] [place] [address] Dr. Lori Bautista MCHC (RBC) [Mass/Vol] 32.7 g/dL Normal 29.9-35.2 [facility] Comment on above: Performed By: #### C BC #### [facility] [address] [place] [address] Dr. Lori Bautista MCV (RBC) [Entitic vol] 95.2 fL Normal 81.0-99.0 [facility] Comment on above: Performed By: #### C BC #### [facility] [address] [place] [address] Dr. Lori Bautista MONO # 0.7 103/ul Normal 0.3-0.8 [facility] Comment on above: Performed By: #### C BC #### [facility] [address] [place] [address] Dr. Lori Bautista Monocytes/100 WBC (Bld) 8.4 % Normal 1.7-12.0 [facility] [facility] Comment on above: Performed By: #### C BC #### [facility] [address] [place] [address] Dr. Lori Bautista NEUT # 5.0 103/ul Normal 1.4-6.5 [facility] Comment on above: Performed By: #### C BC #### [facility] [address] [address] [address] Lori Bautista Neutrophils/100 WBC (Bld) 64.5 % Normal 43.0-75.0 [facility] Comment on above: Performed By: #### C BC #### [facility] [address] [address] [address] Lori Bautista Platelet mean volume (Bld) [Entitic vol] 9.9 fL Normal 9.5-13.5 [facility] Comment on above: Performed By: #### C BC #### [facility] [address] [address] [address] Lori Bautista PLT 310 103/ul Normal 150-450 [facility] Comment on above: Performed By: #### C BC #### [facility] [address] [place] [address] Dr. Lori Bautista RBC 4.34 106/ul Normal 4.20-5.40 [facility] Comment on above: Performed By: #### C BC #### [facility] [address] [address] [address] Lori Bautista WBC 7.8 103/ul Normal 4.0-11.0 [facility] Comment on above: Performed By: #### C BC #### [facility] [address] [address] [address] Lori Bautista FREE THYROXINE INDEX T7on FTI 2.26 Normal 1.30-4.50 [facility] Comment on above: Performed By: #### L IPID, TSH, T7, CMP ####[facility] [address] [id number]. Lori Bautista T3U 31.0 % Normal 30.0-39.0 [facility] Comment on above: Performed By: #### L IPID, TSH, T7, CMP ####[facility] [address] [id number]. Lori Bautista T4 [Mass/Vol] 7.30 ug/dL Normal 4.80-13.90 [facility] Comment on above: Performed By: #### L IPID, TSH, T7, CMP ####[facility] [address] [id number] Bautista GLYCOHEMOGLOBIN A1Con 2021 ADA RECOMMENDATION SEE BELOW Normal [facility] Comment on above: Result Comment: ADA RECOMMENDED LIMIT 4.0 - 6.0 ADA THERAPEUTIC TARGET < 7.0 ACTION SUGGESTED > 7.0 Performed By: #### A 1C #### [facility] [address] [address] [address] Lori Bautista Glucose [Mass/Vol] 117 mg/dL Normal [facility] Comment on above: Performed By: #### A 1C #### [facility] [address] [address] [address] Lori Bautista HbA1c (Bld) [Mass fraction] 5.7 % Normal 4.5-6.2 [facility] Comment on above: Performed By: #### A 1C #### [facility] [address] [address] [address] Lori Bautista IRONon 08-27-2022 Iron [Mass/Vol] 105.0 ug/dL Normal 50.0-170.0 [facility] Comment on above: Performed By: #### I VANDA KYLE ####[facility] [address] [address]DrClarence Bautista LIPID PROFILEon 08-27-2022 CHOL-HDL RATIO NORM SEE BELOW Normal [facility] Comment on above: Result Comment: 3.3 - 4.4 LOW RISK 4.4 - 7.1 AVERAGE RISK 7.1 - 11.0 MODERATE RISK >11.0 HIGH RISK Performed By: #### L IPID, TSH, T7, CMP ####[facility] [address] [id number] Bautista Cholesterol [Mass/Vol] 186 mg/dL Normal <=200 [facility] Comment on above: Performed By: #### L IPID, TSH, T7, CMP ####[facility] [address] [id number] Bautista Cholesterol in HDL [Mass/Vol] 55 mg/dL Normal 40-60 [facility] Comment on above: Performed By: #### L IPID, TSH, T7, CMP ####[facility] [address] [id number]. Lori Bautista Cholesterol in LDL [Mass/Vol] 116.4 mg/dL Normal [facility] Comment on above: Performed By: #### L IPID, TSH, T7, CMP ####[facility] [address] [id number]. Lori Bautista Cholesterol.total/Chol esterol in HDL [Mass ratio] 3.4 {ratio} Normal [facility] Comment on above: Performed By: #### L IPID, TSH, T7, CMP ####[facility] [address] [address]Dr. Lori Bautista HDL NORMAL > or = 60 mg/dl - LO W CARDIOVASCULAR RISK <40 mg/dl - HIGH CARDIOVASCULAR RISK Normal [facility] Comment on above: Performed By: #### L IPID, TSH, T7, CMP ####[facility] [address] [id number]. Lori Bautista LDL CALC NORMAL SEE BELOW Normal [facility] Comment on above: Result Comment: <100 mg/dl OPTIMAL 100 - 129 mg/dl NEAR OR ABOVE OPTIMAL 130 - 159 mg/dl BORDERLINE HIGH 160 - 189 mg/dl HIGH >190 mg/dl VERY HIGH Performed By: #### L IPID, TSH, T7, CMP ####[facility] [address] [id number]. Lori Bautista Triglyceride [Mass/Vol] 73 mg/dL Normal <=150 [facility] Comment on above: Performed By: #### L IPID, TSH, T7, CMP ####[facility] [address] [id number]. Lori Bautista VLDL CALC 14.6 mg/dL Normal [facility] Comment on above: Performed By: #### L IPID, TSH, T7, CMP ####[facility] [address] [id number]. Lori Bautista PROF 14(COMP METB)on 022 Albumin [Mass/Vol] 3.9 g/dL Normal 3.4-5.0 [facility] Comment on above: Performed By: #### L IPID, TSH, T7, CMP ####[facility] [address] [address]Dr. Lori Bautista Albumin/Globulin [Mass ratio] 1.2 {ratio} Normal [facility] Comment on above: Performed By: #### L IPID, TSH, T7, CMP ####[facility] [address] [place], [place] [address]Dr. Lori Bautista ALP [Catalytic activity/Vol] 68 U/L Normal 46-116 [facility] Comment on above: Performed By: #### L IPID, TSH, T7, CMP ####[facility] [address] [place], [place] [address]Dr. Lori Bautista ALT [Catalytic activity/Vol] 20 U/L Normal 14-59 [facility] Comment on above: Performed By: #### L IPID, TSH, T7, CMP ####[facility] [address] [place], [place] [address]Dr. Lori Bautista Anion gap [Moles/Vol] 8.2 mmol/L Normal [facility] Comment on above: Performed By: #### L IPID, TSH, T7, CMP ####[facility] [address] [place], [place] [address]Dr. Lori Bautista AST [Catalytic activity/Vol] 22 U/L Normal 15-37 [facility] Comment on above: Performed By: #### L IPID, TSH, T7, CMP ####[facility] [address] [place], [place] [address]Dr. Lori Bautista Bilirubin [Mass/Vol] 0.3 mg/dL Normal 0.2-1.0 [facility] Comment on above: Performed By: #### L IPID, TSH, T7, CMP ####[facility] [address] [place], [place] [address]Dr. Lori Bautista Calcium [Mass/Vol] 9.2 mg/dL Normal 8.5-10.1 [facility] Comment on above: Performed By: #### L IPID, TSH, T7, CMP ####[facility] [address] [address]Dr. Lori Bautista Chloride [Moles/Vol] 105 mmol/L Normal 98-107 [facility] Comment on above: Performed By: #### L IPID, TSH, T7, CMP ####[facility] [address] [place], [place] [address]Dr. Lori Bautista CO2 [Moles/Vol] 30.0 mmol/L Normal 21.0-32.0 [facility] Comment on above: Performed By: #### L IPID, TSH, T7, CMP ####[facility] [address] [place], [place] [address]Dr. Lori Bautista Creatinine [Mass/Vol] 0.67 mg/dL Normal 0.55-1.02 [facility] Comment on above: Performed By: #### L IPID, TSH, T7, CMP ####[facility] [address] [place], [place] [address]Dr. Lori Bautista EGFR-AF PAPUA NEW GUINEAN >60 Normal >=60 [facility] Comment on above: Performed By: #### L IPID, TSH, T7, CMP ####[facility] [address] [place], [place] [address]Dr. Lori Bautista EGFR-NON AF PAPUA [place] GUINEAN >60 Normal >=60 [facility] Comment on above: Performed By: #### L IPID, TSH, T7, CMP ####[facility] [address] [place], [place] [address]Dr. Lori Bautista Globulin (S) [Mass/Vol] 3.3 g/dL Normal [facility] Comment on above: Performed By: #### L IPID, TSH, T7, CMP ####[facility] [address] [place], [place] [address]Dr. Lori Bautista Glucose [Mass/Vol] 84 mg/dL Normal 74-106 [facility] Comment on above: Performed By: #### L IPID, TSH, T7, CMP ####[facility] [address] [id number]. Lori Bautista Potassium [Moles/Vol] 4.2 mmol/L Normal 3.5-5.1 [facility] Comment on above: Performed By: #### L IPID, TSH, T7, CMP ####[facility] [address] [address]Dr. Lori Bautista Protein [Mass/Vol] 7.2 g/dL Normal 6.4-8.2 [facility] Comment on above: Performed By: #### L IPID, TSH, T7, CMP ####[facility] [address] [place], [place] [address]Dr. Lori Bautista Sodium [Moles/Vol] 139 mmol/L Normal 136-145 [facility] Comment on above: Performed By: #### L IPID, TSH, T7, CMP ####[facility] [address] [place], [place] [address]Dr. Lori Bautista Urea nitrogen [Mass/Vol] 18.0 mg/dL Normal 7.0-18.0 [facility] Comment on above: Performed By: #### L IPID, TSH, T7, CMP ####[facility] [address] [place], [place] [address]Dr. Lori Bautista Urea nitrogen/Creatinine [Mass ratio] 26.9 mg/mg Normal [facility] Comment on above: Performed By: #### L IPID, TSH, T7, CMP ####[facility] [address] [place], [place] [address]Dr. Lori Bautista TSHon 08-27-2022 TSH 1.615 uIU/mL Normal 0.358-3.740 [facility] Comment on above: Performed By: #### L IPID, TSH, T7, CMP ####[facility] [address] [place], [place] [address]Dr. Lori Bautista VITAMIN D 25 OHon 08-27-2022 VIT D 25-OH 73.1 ng/mL Normal [facility] Comment on above: Performed By: #### I SAROJ VITAD ####[facility] [address] [place], [place] [address]Lb. Lori Bautista VIT D RANGES SEE BELOW Normal [facility] Comment on above: Result Comment: <20 ng/mL Vit D deficient 20 - <30 ng/mL Vit D insufficient 30 - 100 ng/mL Vit D sufficient >100 ng/mL Potential Toxicity Performed By: #### I SAROJ, VITAD ####[facility] [address] [place], [place] [address]Jm. Lori Bautista MG MAMM SCREEN 3D APPLE CADon 08-04-2022 MG MAMM SCREEN 3D APPLE CAD Patient: NEVAEH THOMAS Exam Date: 08/04/2022 : 1945 Gender:F Ordering : DR CATALINA CERVANTES Admission #: [id number] Family : Order #: [id number] CLICK HERE TO VIEW EXAM RADIOLOGY REPORT [...] cancer at age 84. LOCATION: [facility] BREAST COMPOSITION: Heterogeneously dense,which may obscure [...] on 08/04/2022 at 13:25 Normal [facility] Covid-19 PCR (CVDTB)on SARS-CoV-2 (COVID-19) RNA PABLO+probe Ql (Unsp spec) Not detected Normal NOT DETECTED [facility] Comment on above: Result Comment: This test is not yet approved or cleared by the [place] FDA. When there are no FDA-approved or cleared tests available, and other criteria are met, FDA can make tests available under an emergency access mechanism called an Emergency Use Authorization (EUA). The EUA for this test is supported by the Career Specialist of Health and Human Service's (HHS's) declaration [...] SARS-CoV-2. Performed By: #### C VDTB #### [facility] [address] [place] [address] Dr. Lori Bautista SYMPTOMATIC COVID-19 ANTIGEN on 05-12-2022 EUA Statement SEE BELOW Normal [facility] Comment on above: Result Comment: This test [...] sooner. Performed By: #### C VDAGS #### [facility] [address] [place] [address] Dr. Lori Bautista SARS-CoV-2 (COVID-19) RNA PABLO+probe Ql (Unsp spec) Negative Normal NEGATIVE [facility] Comment on above: Performed By: #### C VDAGS #### [facility] [address] [place], [place] [id number] Dr. Lori Bautista CALCIUMon 05-04-2022 Calcium [Mass/Vol] 9.6 mg/dL Normal 8.5-10.1 [facility] Comment on above: Performed By: #### LAZARUS LOBO ####[facility] [address] [id number] Bautista CREATININEon 05-04-2022 Creatinine [Mass/Vol] 0.68 mg/dL Normal 0.55-1.02 [facility] Comment on above: Performed By: #### LAZARUS LOBO ####[facility] [address] [id number]. Lori Bautista EGFR-AF PAPUA NEW GUINEAN Normal >=60 [facility] Comment on above: Performed By: #### LAZARUS LOBO ####[facility] [address] [id number]. Lori Bautista EGFR-NON AF PAPUA [place] GUINEAN Normal >=60 [facility] Comment on above: Performed By: #### LAZARUS LOBO ####[facility] [address] [id number]. Lori Bautista XR DEXA BONE DENSITYon 03-29 [...] by: ABBE WEBSTER Date: 2022-03-29 12:43 Normal [facility] XR KUB 1 VIEWon 12-18-2021 XR [...] by: ABBE WEBSTER Date: 2021-12-18 15:43 Normal [facility] Encounters Encounter Date Encounter Type Care Provider Facility Start: 11-06-2024 End: 11-06-2024 ambulatory Loni Covarrubias [facility] Work Phone: Start: 11-06-2024 End: 11-06-2024 Departed Referred Loni Covarrubias MD Work Phone: [facility] Path Spec [facility] Start: 10-02-2024 End: 10-02-2024 Office outpatient new 30 minutes Dariusz Rich DPM Work Phone: [facility] Comment on above: Pain of right foot ( Primary Dx); Plantar keratosis; Right foot pain; Corns and callosities Start: 10-02-2024 End: 10-02-2024 ambulatory DARIUSZ RICH Not Available Start: 04-23-2024 End: 12-10-2024 Telephone encounter Marcy Estrella DO Work Phone: Internal Medicine Comment on above: Orders Start: 03-27-2024 End: 03-27-2024 ambulatory MARCY ESTRELLA Facility:[facility] Start: 03-27-2024 End: 03-27-2024 Patient encounter procedure Marcy Estrella DO Work Phone: Orthopaedics Comment on above: Tendinopathy of righ t rotator cuff (Primary Dx); Degenerative tear of acetabular labrum Start: 03-05-2024 End: 03-05-2024 ambulatory CATALINO LONDON Facility:[facility] Start: 03-05-2024 End: 03-05-2024 Patient [...] right shoulder [M25.511] Start: 01-31-2024 End: 01-31-2024 Patient encounter procedure Marcy Estrella DO Work Phone: Orthopaedics Comment on above: Degenerative tear of acetabular labrum (Primary Dx); Pain in right hip; Primary osteoarthritis of right hip Start: 01-31-2024 End: 01-31-2024 ambulatory MARCY D ESTRELLA Facility:[facility] Start: 01-31-2024 End: 01-31-2024 Subsequent hospital visit [...] Date Procedure Procedure Detail Performing Clinician Start: 11-06-2024 Gram stain microscopy Elyse Covarrubias MD Work Phone: Start: 02-16-2024 Radex shoulder compl ete minimum 2 views Marcy Estrella DO Work Phone: Start: 01-31-2024 Radex hip unilateral with pelvis 2-3 views Marcy Pappas Estrella DO Work Phone: Plan of Treatment Date Care Activity Detail Author Start: 08-01-2026 Urine microalbumin profile DTaP,Tdap,Td Vaccine (3 - Td or Tdap) [facility] Start: 02-23-2026 OCT MACULA CIRRUS OU (BOTH EYES) OCT MACULA CIRRUS OU (BOTH EYES) [facility] Imaging Routine 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 Expected: 02/23/2026 [facility] Work Phone: Comment on above: Expected: 02/23/2026 Start: 03-06-2025 End: 03-06-2025 Patient encounter procedure 03/06/2025 1:30 PM EDT Office Visit [facility] Ophthalmology [address] [place] [address] Catalino London, OD [address] [place] [address] Annual Eye exam Ophthalmology Comment on above: Annual Eye exam Start: 02-17-2025 OCT MACULA CIRRUS OU (BOTH EYES) OCT MACULA CIRRUS OU (BOTH EYES) [facility] Imaging Routine 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 Expected: 02/17/2025 [facility] Work Phone: Comment on above: Expected: 02/17/2025 Start: 11-07-2024 Advance Directive Discussion Advance Directive Discussion [facility] Start: 11-06-2024 Aerobic Culture Aerobic Culture [facility] Start: 11-06-2024 Microbial culture of sputum [facility] Start: 07-08-2024 Covid-19 Vaccine () Covid-19 Vaccine () [facility] Start: 07-08-2024 Covid-19 Vaccine () Covid-19 Vaccine () [facility] Start: 07-08-2024 Influenza vaccination [facility] Start: 05-27-2024 Diabetes Screening Diabetes Screenin g [facility] Start: 03-27-2024 End: 03-27-2024 Patient encounter procedure 03/27/2024 1:15 PM EDT Office Visit Orthopaedics [address] [place] [address] Marcy Estrella, DO [address] [place] [address] 8 week right hip pain Orthopaedics Comment on above: 8 week right hip dave n Start: 11-07-2023 Advance Directive Discussion Advance Directive Discussion [facility] Start: 11-07-2023 Behavioral Health Screening Behavioral Health Screening [facility] Start: 11-07-2023 Depression Assessment Depression Ass essment [facility] Start: 07-08-2023 Covid-19 Vaccine () Covid-19 Vaccine () [facility] Start: 07-08-2023 Influenza vaccination Influenza Vacc ine (#1) [facility] Start: 11-07-2022 ADVANCE DIRECTIVE DISCUSSION ADVANCE DIRECTIVE DISCUSSION [facility] Start: 11-07-2022 DEPRESSION ASSESSMENT DEPRESSION ASS ESSMENT [facility] Start: 05-03-2022 COVID-19 VACCINE (4 - Booster for Pfizer series) COVID-19 VACCINE (4 - Booster for Pfizer series) [facility] Start: 2022 RSV Vaccine (1 - 1-dose 75+ series) RSV Vaccine (1 - 1-dose 75+ series) [facility] Start: 02-11-2012 BONE DENSITY BONE DENSITY [facility] Start: 02-11-2012 Screening for osteoporosis Bone Density Screening [facility] Start: 2007 RSV Vaccine (1 - 1-dose 60+ series) RSV Vaccine (1 - 1-dose 60+ series) [facility] Start: 1997 Influenza vaccination LUNG CANCER [facility] Start: 1997 Screening for malignant neoplasm of lung Lung Cancer Screening [facility] Start: 1997 SHINGRIX VACCINE (1 of 2) SHINGRIX VACCINE (1 of 2) [facility] Start: 02-11-1992 DIABETES SCREEN DIABETES SCREEN [facility] Start: 1966 Urine microalbumin profile DTAP,TDAP,TD (1 - Tdap) [facility] Start: 1965 ANNUAL PCP TEAM CHRONIC DISEASE VISIT ANNUAL PCP TEAM CHRONIC DISEASE VISIT [facility] Start: 1965 Anxiety Screening Anxiety Screening [facility] Start: 1965 Depression Screening Depression Scre ening [facility] Start: 1965 HEPATITIS C SCREENING HEPATITIS C [facility] Start: 1965 Hepatitis C screening Hepatitis C [facility] Start: 1965 SPIROMETRY SPIROMETRY [facility] Start: 1953 PNEUMOCOCCAL: 65+ (1 - PCV) PNEUMOCOCCAL: 65+ (1 - PCV) [facility] OCT MACULA CIRRUS OU (BOTH EYES) OCT MACULA CIRRUS OU (BOTH EYES) [facility] Imaging Routine 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 2020 Unknown [id number] 1959 Unknown [id number] 1945 Unknown [id number] [id number]. 2.593 1945 Unknown [id number] [id number]. 2.593 1945 Unknown [id number] [id number]. 2.593 1945 Unknown [id number] 2.16.840.1.859824.3.579. 2.593 1945 Unknown [id number] [id number]. 2.593 1945 Unknown [id number] 2.16.840.1.217905.3.579. 2.593 1945 Unknown [id number] 2.16.840.1.748572.3.579. 2.593 1945 Unknown [id number] 2.16.840.1.441484.3.579. 2.593 1945 Unknown [id number] [id number]. 2.1259 Medicare [id number] Private Health Insurance [id number] Unknown Twin BC/BS [id number] Unknown Twin [facility] PFFS [id number] Unknown [id number]. 2.531 Social History Date Type Detail Facility Start: 11-12-2020 End: 10-02-2024 Tobacco smoking status WYIS Smokes tobacco daily [facility] Work Phone: History of tobacco use Cigarette Smoker [facility] Work Phone: Start: 11-12-2020 End: 01-31-2024 Cigarettes smoked current (pack per day) - Reported 1 [facility] Start: 11-12-2020 End: 10-02-2024 Tobacco use and exposure Smokeless tobacco non-user [facility] Work Phone: Start: 02-28-2023 End: 03-05-2024 Alcohol intake Lifetime non-drinker (finding) [facility] Start: 09-09-2020 History SDOH Alcohol Frequency 1 [facility] Start: 1945 Sex Assigned At Female [facility] Start: 09-09-2020 End: 01-31-2024 Alcohol Use Disorder Identification Test - Consumption [AUDIT-C] [facility] How often to you hav e a drink containing alcohol? Never [facility] Average Number of Drinks Not on file [facility] Start: 09-08-2020 Gender identity Identifies as female gender (finding) [facility] Start: 09-08-2020 Sexual orientation Heterosexual (finding) [facility] Start: 10-02-2024 Alcoholic beverage intake Ex-drinker (finding) [facility] Tobacco smoking stat us WYIS Unknown if ever smoked [facility] Work Phone: Start: 11-07-2024 Sex Female (finding) [facility] Medical Equipment Procedure Code Equipment Code Equipment Origin al Text Equipment Identifier Dates Lens Iol 0d +15 Derik Uv Abs - [id number] Start: 11-19-2020 Comment on above: Description: -0.26 Lens Iol 0d +15 Derik Uv Abs - [id number] Start: 12-03-2020 Comment on above: Description: -0.33 Clinical Notes 02-28-2023 to 10-02-2024 Dariusz Rich DPM - 10/02/2024 1:30 PM ESTTelephone Encounter - Victoria Watson - 04/23/2024 10:58 AM EDTTelephone Encounter - Victoria Watson - 04/23/2024 10:58 AM EDT Note Date & Type Note Facility [...] 6. Reappoint p.r.n. documented in this encounter [facility] 04-23-2024 Telephone encounter Note April from [facility] is calling Marcy Estrella DO today with concern regarding evaluation that was faxed on February 20. Requested provider's signature to be faxed with it. Please advise. Patient has been identified by name and birthdate. Duration of symptoms: N/A Person calling: April Call patient at: [phone] ext [phone] Was an appointment scheduled: No Closing statement: Results or non-symptom based questions: Thank you for calling [facility], your call will be returned within the next business day. Thank you, Victoria Watson [facility] 04-23-2024 Miscellaneous Notes April from [facility] is calling Marcy Estrella DO today with concern regarding evaluation that was faxed on February 20. Requested provider's signature to be faxed with it. Please advise. Patient has been identified by name and birthdate. Duration of symptoms: N/A Person calling: April Call patient at: [phone] ext [phone] Was an appointment scheduled: No Closing statement: Results or non-symptom based questions: Thank you for calling [facility], your call will be returned within the next business day. Thank you, Victoria Watson documented in this encounter [facility] 03-27-2024 Note HNO ID: [id number] Author: MARCY ESTRELLA DO Service: ? Author [...] Follow-up as needed Procedures Marcy Estrella DO [facility] 03-27-2024 History of Present illness Narrative [...] Marcy Estrella DO documented in this encounter [facility] 03-05-2024 Note HNO ID: [id number] Author: CATALINO LONDON OD Service: ? Author Type: SHRINK PIT OPERATOR Type: Progress Notes Filed: 03/05/2024 17:08 Note Text: [facility]: 1. Keratoconjunctivitis sicca of both eyes [...] Z96.1 Monitor March 05, 2024 5:03 PM [facility] 03-05-2024 History of Present illness Narrative Documentation transcribed from Paper notes from [facility] ASSESSMENT/PLAN: 1. Keratoconjunctivitis sicca of [...] 2024 5:03 PM documented in this encounter [facility] 02-16-2024 Note HNO ID: [id number] Author: JUDY LOPEZ RT(R) Service: ? Author [...] PATIENT PRESENTS WITH AN IMPLANTABLE OR ATTACHED TOW BAR DRIVER: No RADIOLOGY DEPARTMENT: General X-ray: Exam(s) Completed: Upper Extremity X-Ray(s): Shoulder, AP / TRUE AP / AXILLARY right PERIPHERAL IV DATA: Not applicable SIGNED BY: RT Anthony(R) February 16, 2024 1:02 PM [facility] 02-16-2024 History of Present illness Narrative [...] PATIENT PRESENTS WITH AN IMPLANTABLE OR ATTACHED TOW BAR DRIVER: No RADIOLOGY DEPARTMENT: General X-ray: Exam(s) Completed: Upper Extremity X-Ray(s): Shoulder, AP / TRUE AP / AXILLARY right PERIPHERAL IV DATA: Not applicable SIGNED BY: RT Anthony(R) February 16, 2024 1:02 PM documented in this encounter [facility] 02-16-2024 Note HNO ID: [id number] Author: MARCY ESTRELLA, DO Service: ? Author [...] results and radiologist's interpretation, available in the [facility] health record. Images were reviewed [...] decision making as documented. Marcy Estrella DO [facility] 02-16-2024 History of Present illness Narrative [...] Frequency: Continuous Intervention/Comfort measure: Medication Comments: Naprosyn Leo is a this is a 79-year-old [...] results and radiologist's interpretation, available in the [facility] health record. Images were reviewed [...] Marcy Estrella DO documented in this encounter [facility] 01-31-2024 Note HNO ID: [id number] Author: MARCY ESTRELLA DO Service: ? Author [...] -- 2 Pain Location: Hip-Right Hip-Right Description: Aching;Dull;Sore;Stiffness;Tinglin g Aching Duration Amount of Time: -- 3 [...] results and radiologist's interpretation, available in the [facility] health record. Images were reviewed [...] decision making as documented. Marcy Estrella DO [facility] 01-31-2024 History of Present illness Narrative Images from the original note were not included. Nevaeh Thomas is a patient of Loni Covarrubias MD. CHIEF COMPLAINT: Nevaeh Thomas is a 78 year old female who presents today for new evaluation of R hip. HISTORY OF PRESENT ILLNESS: PAIN EVALUATION 01/24/2024 1621 01/31/2024 1404 Pain Level: -- 2 Pain Location: Hip-Right Hip-Right Description: Aching;Dull;Sore;Stiffness;Tinglin g Aching Duration Amount of Time: -- 3 [...] results and radiologist's interpretation, available in the [facility] health record. Images were reviewed [...] Marcy Estrella DO documented in this encounter [facility] 01-31-2024 Note HNO ID: [id number] Author: MARTHA CROOKS RT(R) Service: ? Author [...] PATIENT PRESENTS WITH AN IMPLANTABLE OR ATTACHED TOW BAR DRIVER: No RADIOLOGY DEPARTMENT: General X-ray: Exam(s) Completed: Pelvis X-Ray: Pelvis with Hip Right PERIPHERAL IV DATA: Not applicable SIGNED BY: RT Elisa(R) January 31, 2024 2:01 PM [facility] 02-28-2023 History of Present illness Narrative [...] 2023 1:19 PM documented in this encounter [facility] Evaluation note Diagnosis Vitreous degeneration, bilateral- Primary Floaters in visual field, bilateral Keratoconjunctivitis sicca of both eyes not specified as Sjogren's Keratoconjunctivitis sicca, not specified as Sjogren's SPK (superficial punctate keratitis), bilateral Pseudophakia of both eyes Lens replaced by other means Retinal pigment epithelial mottling of macula Other retinal disorders 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 [facility] Diagnosis Degenerative tear of acetabular labrum- Primary Pain in right hip Pain in joint, pelvic region and thigh Primary osteoarthritis of right hip Primary localized osteoarthrosis, pelvic region and thigh [facility] Tendinopathy of right rotator cuff- Primary Impingement syndrome of right shoulder Other affections of shoulder region, not elsewhere classified [facility] Diagnosis Keratoconjunctivitis sicca of both eyes not specified as Sjogren's- Primary Keratoconjunctivitis sicca, not specified as Sjogren's Retinal pigment epithelial mottling of macula Other retinal disorders 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, bilateral Pseudophakia of both eyes Lens replaced by other means [facility] Tendinopathy of right rotator cuff- Primary Degenerative tear of acetabular labrum [facility] Preop examination- Primary Preoperative examination, unspecified Combined forms of age-related cataract of both eyes Other and combined forms of senile cataract Chronic obstructive pulmonary disease, unspecified COPD type (HCC) Gastroesophageal reflux disease, unspecified whether esophagitis present Hyperlipidemia, unspecified hyperlipidemia type Tobacco abuse Tobacco use disorder Acute pain of right shoulder [facility] Preop examination- Primary Preoperative examination, unspecified Combined forms of age-related cataract of both eyes Other and combined forms of senile cataract Chronic obstructive pulmonary disease, unspecified COPD type (HCC) Gastroesophageal reflux disease, unspecified whether esophagitis present Hyperlipidemia, unspecified hyperlipidemia type Tobacco abuse Tobacco use disorder Pain Generalized pain [facility] [place] [facility] Diagnosis Pain of right foot- Primary Plantar keratosis Right foot pain Pain in soft tissues of limb Corns and callosities [facility] Work Phone: [facility] (narrative)* Diagnostic Procedure Only (Routine) - Closed Specialty Diagnoses / Procedures Referred By Contac t Referred To Contact XR IMAGING Diagnoses Acute pain of right shoulder Procedures XR SHOULDER GENERAL 3V OR MORE AP/TRUE AP/OTHER RIGHT RADEX SHOULDER COMPLETE MINIMUM 2 VIEWS Marcy Estrella, DO [address] [place] [address] [place] [address] Referral ID Status Reason Start Date Expiration Date V isits Requested Visits Authorized [id number] Closed Auto-Generate d Referral 02/07/2024 03/08/2025 1 1 [facility] for referral (narrative)* Diagnostic Procedure Only (Routine) - Closed Specialty Diagnoses / Procedures Referred By Contac t Referred To Contact XR IMAGING Diagnoses Pain Procedures XR HIP GENERAL 3V PELV/AP/LAT RIGHT RADEX HIP UNILATERAL WITH PELVIS 2-3 VIEWS Marcy Estrella, DO [address] [place] [address] [place] [address] Referral ID Status Reason Start Date Expiration Date V isits Requested Visits Authorized [id number] Closed Auto-Generate d Referral 01/24/2024 02/22/2025 1 1 [facility] for visit Narrative* Diagnostic Procedure Only (Routine) - Closed Specialty Diagnoses / Procedures Referred By Contac t Referred To Contact XR IMAGING Diagnoses Acute pain of right shoulder Procedures XR SHOULDER GENERAL 3V OR MORE AP/TRUE AP/OTHER RIGHT RADEX SHOULDER COMPLETE MINIMUM 2 VIEWS Marcy Estrella, DO [address] [place] [address] [place] [address] Referral ID Status Reason Start Date Expiration Date V isits Requested Visits Authorized [id number] Closed Auto-Generate d Referral 02/07/2024 03/08/2025 1 1 [facility] Diagnostic Procedure Only (Routine) - Closed Specialty Diagnoses / Procedures Referred By Contac t Referred To Contact XR IMAGING Diagnoses Pain Procedures XR HIP GENERAL 3V PELV/AP/LAT RIGHT RADEX HIP UNILATERAL WITH PELVIS 2-3 VIEWS Marcy Estrella, DO [address] [place] [address] [place] [address] Referral ID Status Reason Start Date Expiration Date V isits Requested Visits Authorized [id number] Closed Auto-Generate d Referral 01/24/2024 02/22/2025 1 1 [facility] Summary Purpose Family History No Family History Records FoundNo Family History Records FoundNo Family History Records FoundNo Family History Records Found Advance Directives No Advanced Directives Records Found Advance Directive Response Recorded Date/ Time Advance Directives No December 11:18am Medications Administered Section Inactive Administered Medications - up to 3 most recent administrations Medication Order MAR Action Action Date Dose Rate Site fluorescein-benoxinate 0.25-0.4 % 1 Drop (FLURESS) 1 Drop, BOTH EYES, DIRECTED, Starting on Tue02/28/23 at 1230, Until Tue03/01/23 at 0029, Administer for applanation tonometry. In the event of a Fluress shortage, administer [place]-Fluor 1 drop into both eyes as directed [...] COMPLEX 45 MINS Marcy Estrella, DO [address] [place] [address] [facility] [address] [address] Referral ID Status Reason Start Date Expiration Date Visits Requested Visits Authorized [id number] Pending Review Auto-Generat ed Referral 01/31/2024 01/30/2025 1 1 Specialty Diagnoses / Procedures Referred By Milagros maxwell Referred To Contact [facility] Diagnoses Tendinopathy of right rotator cuff Impingement syndrome of right shoulder Procedures CONSULT TO PHYSICAL THERAPY PHYSICAL THERAPY EVALUATION HIGH COMPLEX 45 MINS Marcy Estrella, DO [address] [place] [address] [address] Referral ID Status Reason Start Date Expiration Date Visits Requested Visits Authorized [id number] Pending Review Auto-Generat ed Referral 02/16/2024 02/15/2025 1 1 Additional Source Comments INFORMATION SOURCE (unrecogn ized section and content) DATE CREATED AUTHOR 12/07/2022 [facility] DATE CREATED AUTHOR AUTHOR'S ORGANIZ ATION 10/05/2024 [facility] EPIC DATE CREATED AUTHOR AUTHOR'S ORGANIZ ATION 11/18/2024 [facility] DATE CREATED AUTHOR AUTHOR'S ORGANIZ ATION 12/11/2024 [facility] Source Comments (unrecognize d section and content) In the event this informatio n is protected by the Federal Confidentiality of Alcohol and Drug Abuse Patient Records regulations: The Federal rules restrict any use of the information to criminally investigate or prosecute any alcohol or drug abuse patient.[facility] the event this information is protected by the Federal Confidentiality of Alcohol and Drug Abuse Patient Records regulations: The Federal rules restrict any use of the information to criminally investigate or prosecute any alcohol or drug abuse patient.[facility] HospitalIn the event this information is protected by the Federal Confidentiality of Alcohol and Drug Abuse Patient Records regulations: The Federal rules restrict any use of the information to criminally investigate or prosecute any alcohol or drug abuse patient.[facility] HospitalIn the event this information is protected by the Federal Confidentiality of Alcohol and Drug Abuse Patient Records regulations: The Federal rules restrict any use of the information to criminally investigate or prosecute any alcohol or drug abuse patient.[facility] HospitalIn the event this information is protected by the Federal Confidentiality of Alcohol and Drug Abuse Patient Records regulations: The Federal rules restrict any use of the information to criminally investigate or prosecute any alcohol or drug abuse patient.[facility] HospitalIn the event this information is protected by the Federal Confidentiality of Alcohol and Drug Abuse Patient Records regulations: The Federal rules restrict any use of the information to criminally investigate or prosecute any alcohol or drug abuse patient.[facility] HospitalIn the event this information is protected by the Federal Confidentiality of Alcohol and Drug Abuse Patient Records regulations: The Federal rules restrict any use of the information to criminally investigate or prosecute any alcohol or drug abuse patient.[facility] HospitalIn the event this information is protected by the Federal Confidentiality of Alcohol and Drug Abuse Patient Records regulations: The Federal rules restrict any use of the information to criminally investigate or prosecute any alcohol or drug abuse patient.[facility] HospitalIn the event this information is protected by the Federal Confidentiality of Alcohol and Drug Abuse Patient Records regulations: The Federal rules restrict any use of the information to criminally investigate or prosecute any alcohol or drug abuse patient.[facility] Reason for Visit (unrecogniz ed section and content) Reason Comments Yearly Exam Floaters Both Eyes Reason Comments New Right Hip Pain Reason Comments Radiology XR Reason Comments New Pain (Shoulder Pain) Reason Comments Dry Eye(s) Both Eyes Vitreous Degeneration (Pvd) Reason Comments Established Patient Right Hip Pain Reason Comments Orders Care Teams (unrecognized sec tion and content) Guest Services Lead Relationship Specialty Start Date End Date Loni Covarrubias MD PCP - General Family Medicine 08/31/10 Guest Services Lead Relationship Specialty Start Date End Date Loni Covarrubias MD PCP - General Family Medicine 08/31/10 Guest Services Lead Relationship Specialty Start Date End Date Loni Covarrubias MD PCP - General Family Medicine 08/31/10 Guest Services Lead Relationship Specialty Start Date End Date Loni Covarrubias MD PCP - General Family Medicine 08/31/10 Guest Services Lead Relationship Specialty Start Date End Date Loni Covarrubias MD PCP - General Family Medicine 08/31/10 Guest Services Lead Relationship Specialty Start Date End Date Loni Covarrubias MD PCP - General Family Medicine 10/25/10 Guest Services Lead Relationship Specialty Start Date End Date Loni Covarrubias MD PCP - General Family Medicine 08/31/10 Guest Services Lead Relationship Specialty Start Date End Date Loni Covarrubias MD PCP - General Family Medicine 08/31/10 Guest Services Lead Relationship Specialty Start Date End Date Loni Covarrubias MD [address] [place] [address] PCP - General Family Medicine 10/02/24 Team Status: Inactive Member Role Status Dates Loni Covarrubias MD Attending Provider Active Sta rt: November 06, 2024 End: November 06, 2024 Guest Services Lead Relationship Specialty Start Date End Date Loni Covarrubias MD PCP - General Family Medicine 08/31/10 Goals (unrecognized section and content) Goals may be documented in a n alternate section FOR RECORDS PERTAINING TO PATIENTS WHO ARE [...] BE BASED ON THE PRIMARY CLINICAL RECORDS. [facility] [employer] [facility]. provides no warranty or guarantee of the accuracy or completeness of information in this document.
[2025-01-24 11:22] LABS: Estimated Average Glucose 108 mg/dL; Glycohemoglobin A1C 5.4 % (4.5-6.2)
[2025-01-24 11:58] LABS: Chol HDL Ratio 2.5; Cholesterol 163 mg/dL (<=200); HDL Cholesterol 64 mg/dL (40-60); Triglycerides 38 mg/dL (<=150); VLDL CHOLESTEROL 7.6 mg/dL
== END 2025-01-24 10:37 | disposition home or self-care (01) ==
LOC: LAB 10:38
PROVIDERS: PCP Family Medicine; Visit Provider Family Medicine
DX: Z00.00 Encounter for general adult medical examination without abnormal findings (principal); R73.09 Other abnormal glucose
CPT/HCPCS: 36415; 80061; 83036

== ENCOUNTER 2025-02-01 09:52 | Outpatient (OUT) | payer MEDICARE, SELFPAY ==
--- NOTE | 2025-02-01 10:00 | CA_ITS ---
Patient Name: MIYA THOMAS MR#: [id number] : 1945 Exam Date: 02/01/2025 Ordering Doctor: DR Dileep Covarrubias . ECHOCARDIOGRAM REPORT PROCEDURE: CA ECHO DOPPLER COMPLETE INDICATIONS: Edema, COPD COMPARISON: None. DESCRIPTION: COMPLETE ECHOCARDIOGRAM Real-time transthoracic echocardiography with 2D, M-mode, spectral and color flow Doppler performed. QUALITY: Technical quality was good. LEFT VENTRICLE: Normal chamber size. Thickened septal wall. Mild concentric hypertrophy. Normal systolic function. LV EF: Normal left ventricular ejection fraction, (>55%). DIASTOLIC: Diastolic function is indeterminate. ATRIAL SEPTUM: LEFT ATRIUM: Normal chamber size. RIGHT ATRIUM: Normal chamber size. RIGHT VENTRICLE: Normal chamber size. Normal right ventricular systolic function. TRICUSPID VALVE: Normal mobility and thickness. No stenosis with trivial regurgitation. No evidence of pulmonary hypertension. RVSP 31 mmHg MITRAL VALVE: Normal mobility and thickness. No evidence of mitral valve stenosis. Mild mitral regurgitation. Moderate posterior mitral annular calcification. AORTIC VALVE: Normal trileaflet appearance. Thickened aortic valve. Normal leaflet mobility. No evidence of aortic valve stenosis. Trivial aortic regurgitation. AORTIC ROOT: Normal diameter and appearance, measuring 3.0 cm. Ascending aorta is normal in size, measuring 2.8 cm. PULMONIC VALVE: Normal thickness and mobility. No stenosis. No regurgitation. PERICARDIUM: No evidence of pericardial effusion. IVC: Collapses with inspirations. IVC is normal in size. PLEURA: CONCLUSION: 1. Mild concentric left ventricular hypertrophy with normal systolic function. Estimated LVEF is 55 to 60%. 2. Normal right ventricular size and systolic function. 3. No significant valvular dysfunction. 4. Normal right-sided pressures. Adult Echocardiography Procedure Report Left Ventricle LVEDD (3.7 - 5.6 cm): 2.92 cm LVESD (2.2 - 4.0 cm): 2.15 cm LVIVS thickness (0.6 - 1.2 cm): 1.37 cm LVPW thickness (0.5 - 1.0 cm): 1.07 cm e': 0.05 m/s E - e': 16.60 LVOT Max Gradient: 7.12 mm[Hg] LVOT Area (cm2): 1.33 m/s Peak Velocity (LVOT): 1.33 m/s Mean Velocity (LVOT): 1.02 m/s LVOT Diameter 1.98 cm Left Atrium LA Volume Index (2D A2C): 24.28 ml/m2 Left Atrium Systolic Dimension: 3.56 cm Mitral Valve MV E to A Ratio: 0.69 Mitral Valve A-Wave Peak Velocity: 1.29 m/s Mitral Valve E-Wave Peak Velocity: 0.89 m/s Right Ventricle Aorta AO Root Diam: 3.02 cm Ascending Ao Diam: 2.82 cm Aortic Valve AoV Area (Peak Keyshawn): 3.26 cm2, 3.26 cm2 AoV Area (VTI): 3.38 cm2, 3.38 cm2 Peak Velocity(Antegrade Flow): 1.26 m/s Peak Gradient(Antegrade Flow): 6.36 mm[Hg] Mean Velocity(Antegrade Flow): 0.99 m/s Mean Gradient(Antegrade Flow): 4.24 mm[Hg] Velocity Time Integral: 32.66 cm Tricuspid Valve Peak Velocity (Regurgitant Flow): 2.64 m/s Pulmonic Valve Peak Gradient: 2.70 mm[Hg], 3.19 mm[Hg] Right Atrium Right Atrium Systolic Pressure: 35.20 ml, 35.20 ml Dictated by: Josué Vyas M.D. on 02/01/2025 at 17:48 Approved by: Josué Vyas M.D. on 02/01/2025 at 17:52
--- OUTSIDE RECORDS SUMMARY | 2025-02-01 10:13 | XMS_ITS | CCD ---
Author Organization [facility] Care Team Providers Care Gettering Operator Name Role Phone MARCI, DR IVEY Admitting [...] Attending Unavailable Loni Covarrubias MD Attending Provider [phone] Loni Covarrubias Attending Unavailable Loni Covarrubias Admitting [...] (2 sources) black walnut pollen extract; Translations: [ZVJTUIM-LPW-WCL REDUCTASE INHIBITORS] Drug Allergy 02-28-2023 [facility] Repository (9 sources) HMG-CoA reductase inhibitor Drug Allergy 02-28-2023 Unknown [facility] Medications Current Medications Medication Drug Class(es) Dates Sig (Normalized) Sig (Original) [id number] 200 actuat albuterol 0.09 mg/actuat metered dose [...] by mouth once daily. fish oil concentrate ([facility]-3) 300 MG capsule (2 sources) fish oil concentrate ([facility]-3) 300 MG capsule Take 550 mg by [...] sources) Vitamin B12 cyanocobalamin/f olic acid (VITAMIN W46-AGGMD ACID) 1,000-[address] by sublingual route. Active gabapentin 100 mg oral capsule (10 sources) Anti-epileptic Agent Start: 021 take 1 capsule by mouth once daily as needed gabapentin (NEURONTIN) 100 mg capsule Take 1 capsule by mouth once daily as needed (for sciatica) for up to 180 days. 11/12/2020 Active Comment on above: Take 1 capsule by [facility] once daily as needed (for sciatica) for up to 180 days. gemfibrozil 600 mg oral tablet (12 sources) Peroxisome Proliferator Receptor alpha Agonist Start: 018 take 1 tablet by mouth twice daily Gemfibrozil 600 mg Tablet Active 600 MG PO Twice daily December 23, 2017 12:00am Start: 09-03-2010 take 1 tablet by [facility] once daily gemfibrozil (LOPID) 600 mg [...] ULTRA WOMEN'S ORAL) (9 sources) Start: 0 multivit,iron,grey goods examiner als/lutein (CENTRUM SILVER ULTRA WOMEN'S ORAL) 11/07/1999 Active Start: 11-07-1999 multivit,iron, minerals/lutein (CENTRUM SILVER ULTRA WOMEN'S ORAL) Multivitamin Tablet (1 source) Start: 12-23-2017 take 1 tablet by mouth once daily Multivitamin Tablet Active 1 TAB PO Daily December 23, 2017 12:00am [facility] 6-Pok-Huu-Fish Oil (Fish Oil) 1,000 mg (120 mg-180 mg) Capsule (1 source) Start: 12-23-2017 [facility] 3-Dha-Ep a-Fish Oil (Fish Oil) 1,000 mg (120 mg-180 mg) Capsule Active 500 MG PO Daily December 23, 2017 12:00am omega 4-ena-amd-fish oil (FISH OIL) 100-160-1,000 mg cap (9 [...] one(1) tablet d aily. polyethylene glycol 3350 21944 mg powder for oral solution (2 sources) [...] 11/07/1989 Active take 1 capsule by [facility] once daily vitamin E 180 MG (400 [...] Comment on above: Take 1 tablet by [facility] once daily. naproxen 250 mg oral [...] Gram Positive Cocci in Pairs PERFORMED BY: [place] [address] PATHOLOGIST HVAC SPECIALIST GWEN ABDUL M.D. Normal [facility] Comment on above: Performed By: #### G S, AERC #### [place] [id number] [facility] Gram Stainon 11-06-2024 Microscopic observation Gram stain Nom (Unsp spec) Gram Stain Result 1+ Gram Positive Cocci in Pairs 11/06/2024 1624 PAB PERFORMED BY: [place] [id number] PATHOLOGIST HVAC SPECIALIST GWEN ABDUL M.D. Normal [facility] Comment on above: Performed By: #### G S, AERC #### [place] [id number] [facility] Gram stain microscopyOrdered By: Loni Covarrubias on 11-06-2024 Microscopic observation Gram stain Nom (Unsp spec) Gram stain microscopy [facility] Adalgisa 04-23-2024 CNPN Telephone (INTMAL) NEVAEH THOMAS ([id number]) 1945 F Date Time Provider Department 04/23/24 MARCY ESTRELLA INTMAL During your visit today, we recorded the following information about you: Victoria Watson 04/23/2024 11:01 AM Signed April from [facility] is calling Marcy Estrella DO today with concern regarding evaluation that was faxed on February 20. Requested provider's signature to be faxed with it. Please advise. Patient has been identified by name and birthdate. Duration of symptoms: N/A Person calling: April Call patient at: [phone] ext [phone] Was an appointment scheduled: No Closing statement: Results or non-symptom based questions: Thank you for calling [facility], your call will be returned within the next business day. Thank you, Victoria Watsno Allergies As of Date: 04/23/2024 Noted Allergy Reaction EPXRSTX-ZKW-VYW REDUCTASE INHIBIT*02/28/2023 16 - Unknown Date Reviewed: 03/27/2024 Reviewed by: Marcy Estrella DO - Fully Assessed Reason for Visit: Orders [681] Prescriptions as of 12/10/2024 - cyanocobalamin/folic acid (VITAMIN L48-DHQHJ ACID) 1,000-[address] by sublingual [...] E mixed 400 unit cap - omega 4-rct-yyq-fish oil (FISH OIL) 100-160-1,000 mg cap Fish [...] Encounter Status:Closed by VICTORIA WATSON on 12/10/24 [facility] CNOVon 03-27-2024 CNOV Office Visit (LOORRM ) JEANETTEJONHNEVAEH DARDEN ([id number]) 1945 F Date Time Provider Department 03/27/24 [...] As of Date: 03/27/2024 Noted Allergy Reaction WOKWDTN-INT-LRE REDUCTASE INHIBIT*02/28/2023 16 - Unknown Date Reviewed: 03/27/2024 Reviewed by: Marcy Estrella, - Fully Assessed Reason for Visit: Established Patient [175] Right Hip Pain [1554] Primary Visit Diagnosis: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] Other Visit Diagnosis: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] Prescriptions as of 03/27/2024 - cyanocobalamin/folic acid (VITAMIN I67-OJLUO ACID) 1,000-[address] by sublingual [...] E mixed 400 unit cap - omega 2-xgk-zry-fish oil (FISH OIL) 100-160-1,000 mg cap Fish [...] Encounter Status:Closed by MARCY ESTRELLA on 03/27/24 [facility] CNOVon 02-16-2024 CNOV Office Visit (LOORRM ) NEVAEH THOMAS ([id number]) 1945 F Date Time Provider Department 02/16/24 [...] Marcy Estrella DO Referring Provider: LONI COVARRUBIAS [[id number]] Allergies As of Date: 02/16/2024 Noted Allergy Reaction INZQXJR-KFX-ABU REDUCTASE INHIBIT*02/28/2023 16 - Unknown Date Reviewed: 02/16/2024 Reviewed by: Marcy Estrella DO - Fully Assessed Reason for Visit: New [451017] Pain (Shoulder Pain) [1343] Primary Visit Diagnosis: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 Normal [facility] XR SHLDR >/=3V AP/LAURA AP/OTH R [...] - IMPRESSION: MINIMAL DEGENERATIVE CHANGES RIGHT SHOULDER Stereoplotter Operator: TAYA Transcribe Date/Time: Feb 16 2024 2:48P Dictated by : MEHNAZ LOBATO MD This examination was interpreted and the report reviewed and electronically signed by: MEHNAZ LOBATO MD on Feb 16 2024 2:49PM EST [id number] Normal [facility] XR Shoulder - right 3 Viewso n 02-16-2024 IMPRESSION: MINIMAL DEGENERATIVE CHANGES RIGHT SHOULDER Stereoplotter Operator: TAYA Transcribe Date/Time: Feb 16 2024 2:48P [...] - DIVISION OF RADIOLOGY Provider, Otoniel Peralta [facility] - 02/16/2024 * * *Final Report* * [...] IMPRESSION IMPRESSION: MINIMAL DEGENERATIVE CHANGES RIGHT SHOULDER Stereoplotter Operator: TAYA Transcribe Date/Time: Feb 16 2024 2:48P Dictated by : MEHNAZ LOBATO MD This examination was interpreted and the report reviewed and electronically signed by: MEHNAZ LOBATO MD on Feb 16 2024 2:49PM EST [facility] Radiology Study observation (narrative) [facility] XR Shoulder - right 3 ViewsO rdered By: Ccf Provider on 02-16-2024 [facility] CNOVon 01-31-2024 CNOV Office Visit (LOORRM ) NEVAEH THOMAS ([id number]) 1945 F Date Time Provider Department 01/31/24 [...] As of Date: 01/31/2024 Noted Allergy Reaction DQENQPZ-QAK-JTL REDUCTASE INHIBIT*02/28/2023 16 - Unknown Date Reviewed: 01/31/2024 Reviewed by: Marcy Estrella DO - Fully Assessed Reason for Visit: New [080358] Right Hip Pain [1554] Primary Visit Diagnosis: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 Normal [facility] XR HIP 3V PELV+ AP/LAT RTon [...] lower abdomen. IMPRESSION: Right hip grossly unremarkable. Stereoplotter Operator: PSCB Transcribe Date/Time: Jan 31 2024 2:13P Dictated by : PORFIRIO MURPHY MD This examination was interpreted and the report reviewed and electronically signed by: PORFIRIO MURPHY MD on Jan 31 2024 2:14PM EST [id number] Normal [facility] XR Pelvis and Hip - right AP and Lateral frogon 01-31-2024 IMPRESSION: Right hip grossly unremarkable. Stereoplotter Operator: PSC Transcribe Date/Time: Jan 31 2024 2:13P [...] the lower abdomen. DIVISION OF RADIOLOGY Provider, [facility] - 01/31/2024 * * *Final Report* [...] abdomen. IMPRESSION IMPRESSION: Right hip grossly unremarkable. Stereoplotter Operator: TAYA Transcribe Date/Time: Jan 31 2024 2:13P Dictated by : PORFIRIO MURPHY MD This examination was interpreted and the report reviewed and electronically signed by: PORFIRIO MURPHY MD on Jan 31 2024 2:14PM EST [facility] Radiology Study observation (narrative) [facility] XR Pelvis and Hip - right AP and Lateral frogOrdered By: Ccf Provider on 01-31-2024 [facility] CALCIUMon 12-07-2022 Calcium [Mass/Vol] 9.4 mg/dL Normal 8.5-10.1 [facility] Comment on above: Performed By: #### LAZARUS LOBO #### [facility] [address] [place] [address] Dr. Lori Bautista CREATININEon 12-07-2022 Creatinine [Mass/Vol] 0.64 mg/dL Normal 0.55-1.02 [facility] Comment on above: Performed By: #### LAZARUS LOBO #### [facility] [address] [place] [address] Dr. Lori Bautista EGFR-AF SRI LANKAN >60 Normal >=60 [facility] Comment on above: Performed By: #### LAZARUS LOBO #### [facility] [address] [place] [address] Dr. Lori Bautista EGFR-NON AF SRI LANKAN >60 Normal >=60 [facility] Comment on above: Performed By: #### Sherry TAMAYO CA #### [facility] [address] [place] [address] LUNG CANCER SCREENINGon [...] VERONICA DUNCAN Date: 2022-09-10 14:57 Normal [facility] INSULINon 08-28-2022 Insulin 4.3 uIU/mL Normal 2.6-24.9 [facility] Comment on above: Performed By: #### I NSULIN #### [facility] [address] [place] [address] [address] Lori Bautista CBC AUTO DIFFon 08-27-2022 BASO # 0.1 103/ul Normal 0.0-0.1 [facility] Comment on above: Performed By: #### C BC #### [facility] [address] [place], [place] [address] Dr. Lori Bautista Basophils/100 WBC (Bld) 0.6 % Normal 0.2-2.0 [facility] Comment on above: Performed By: #### C BC #### [facility] [address] [place] [address] Dr. Lori Bautista EO # 0.1 103/ul Normal 0.0-0.7 [facility] Comment on above: Performed By: #### C BC #### [facility] [address] [place] [address] Dr. Lori Bautista Eosinophils/100 WBC (Bld) 0.6 % Critically low 0.9-7.0 [facility] Comment on above: Performed By: #### C BC #### [facility] [address] [place] [address] Dr. Lori Bautista Erythrocyte distribution width (RBC) [Ratio] 13.2 % Normal 11.0-15.0 [facility] Comment on above: Performed By: #### C BC #### [facility] [address] [place] [address] Dr. Lori Bautista Hematocrit (Bld) [Volume fraction] 41.3 % Normal 36.0-48.0 [facility] Comment on above: Performed By: #### C BC #### [facility] [address] [place] [address] Dr. Lori Bautista Hemoglobin (Bld) [Mass/Vol] 13.5 g/dL Normal 12.0-16.0 [facility] Comment on above: Performed By: #### C BC #### [facility] [address] [place] [address] Dr. Lori Bautista IG # 0.02 10e3/ul Normal 0.00-0.03 [facility] Comment on above: Performed By: #### C BC #### [facility] [address] [place] [address] Dr. Lori Bautista IG % 0.3 % Normal 0.0-0.5 [facility] Comment on above: Performed By: #### C BC #### [facility] [address] [place] [address] Dr. Lori Bautista LYMPH # 2.0 103/ul Normal 1.2-3.8 [facility] Comment on above: Performed By: #### C BC #### [facility] [address] [place] [address] Dr. Lori Bautista Lymphocytes/100 WBC (Bld) 25.6 % Normal 20.5-60.0 [facility] Comment on above: Performed By: #### C BC #### [facility] [address] [place] [address] Dr. Lori Bautista MANUAL DIFF REQ NO Normal [facility] Comment on above: Performed By: #### C BC #### [facility] [address] [place] [address] Dr. Lori Bautista MCH (RBC) [Entitic mass] 31.1 pg Normal 26.7-34.0 [facility] Comment on above: Performed By: #### C BC #### [facility] [address] [place] [address] Dr. Lori Bautista MCHC (RBC) [Mass/Vol] 32.7 g/dL Normal 29.9-35.2 [facility] Comment on above: Performed By: #### C BC #### [facility] [address] [place] [address] Dr. Lori Bautista MCV (RBC) [Entitic vol] 95.2 fL Normal 81.0-99.0 [facility] Comment on above: Performed By: #### C BC #### [facility] [address] [place] [address] Dr. Lori Bautista MONO # 0.7 103/ul Normal 0.3-0.8 [facility] Comment on above: Performed By: #### C BC #### [facility] [address] [place] [address] Dr. Lori Bautista Monocytes/100 WBC (Bld) 8.4 % Normal 1.7-12.0 [facility] Comment on above: Performed By: #### C BC #### [facility] [address] [place] [address] Dr. Loir Bautista NEUT # 5.0 103/ul Normal 1.4-6.5 [facility] Comment on above: Performed By: #### C BC #### [facility] [address] [place] [address] [address] Lori Bautista Neutrophils/100 WBC (Bld) 64.5 % Normal 43.0-75.0 [facility] Comment on above: Performed By: #### C BC #### [facility] [address] [place] [address] [address] Lori Bautista Platelet mean volume (Bld) [Entitic vol] 9.9 fL Normal 9.5-13.5 [facility] Comment on above: Performed By: #### C BC #### [facility] [address] [place] [address] [address] Lori Bautista PLT 310 103/ul Normal 150-450 [facility] Comment on above: Performed By: #### C BC #### [facility] [address] [place] [address] Dr. Lori Bautista RBC 4.34 106/ul Normal 4.20-5.40 [facility] Comment on above: Performed By: #### C BC #### [facility] [address] [place] [address] [address] Lori Bautista WBC 7.8 103/ul Normal 4.0-11.0 [facility] Comment on above: Performed By: #### C BC #### [facility] [address] [place] [address] [address] Lori Bautista FREE THYROXINE INDEX T7on FTI 2.26 Normal 1.30-4.50 [facility] Comment on above: Performed By: #### L IPID, TSH, T7, CMP ####[facility] [address] [place] [id number]. Lori Bautista T3U 31.0 % Normal 30.0-39.0 [facility] Comment on above: Performed By: #### L IPID, TSH, T7, CMP ####[facility] [address] [place] [address]Dr. Lori Bautista T4 [Mass/Vol] 7.30 ug/dL Normal 4.80-13.90 [facility] Comment on above: Performed By: #### L IPID, TSH, T7, CMP ####[facility] [address] [place] [id number] Bautista GLYCOHEMOGLOBIN A1Con 2021 ADA RECOMMENDATION SEE BELOW Normal [facility] Comment on above: Result Comment: ADA RECOMMENDED LIMIT 4.0 - 6.0 ADA THERAPEUTIC TARGET < 7.0 ACTION SUGGESTED > 7.0 Performed By: #### A 1C #### [facility] [address] [place] [address] [address] Lori Bautista Glucose [Mass/Vol] 117 mg/dL Normal [facility] Comment on above: Performed By: #### A 1C #### [facility] [address] [place] [address] [address] Lori Bautista HbA1c (Bld) [Mass fraction] 5.7 % Normal 4.5-6.2 [facility] Comment on above: Performed By: #### A 1C #### [facility] [address] [place] [address] [address] Lori Bautista IRONon 08-27-2022 Iron [Mass/Vol] 105.0 ug/dL Normal 50.0-170.0 [facility] Comment on above: Performed By: #### I VANDA KYLE ####[facility] [address] [place] [address]DrClarence Bautista LIPID PROFILEon 08-27-2022 CHOL-HDL RATIO NORM SEE BELOW Normal [facility] Comment on above: Result Comment: 3.3 - 4.4 LOW RISK 4.4 - 7.1 AVERAGE RISK 7.1 - 11.0 MODERATE RISK >11.0 HIGH RISK Performed By: #### L IPID, TSH, T7, CMP ####[facility] [address] [place] [id number] Bautista Cholesterol [Mass/Vol] 186 mg/dL Normal <=200 [facility] Comment on above: Performed By: #### L IPID, TSH, T7, CMP ####[facility] [address] [place] [address]DrClarence Bautista Cholesterol in HDL [Mass/Vol] 55 mg/dL Normal 40-60 [facility] Comment on above: Performed By: #### L IPID, TSH, T7, CMP ####[facility] [address] [place] [address]Dr. Lori Bautista Cholesterol in LDL [Mass/Vol] 116.4 mg/dL Normal [facility] Comment on above: Performed By: #### L IPID, TSH, T7, CMP ####[facility] [address] [place] [address]Dr. Lori Bautista Cholesterol.total/Chol esterol in HDL [Mass ratio] 3.4 {ratio} Normal [facility] Comment on above: Performed By: #### L IPID, TSH, T7, CMP ####[facility] [address] [place] [address]Dr. Lori Bautista HDL NORMAL > or = 60 mg/dl - LO W CARDIOVASCULAR RISK <40 mg/dl - HIGH CARDIOVASCULAR RISK Normal [facility] Comment on above: Performed By: #### L IPID, TSH, T7, CMP ####[facility] [address] [place] [address]Dr. Lori Bautista LDL CALC NORMAL SEE BELOW Normal [facility] Comment on above: Result Comment: <100 mg/dl OPTIMAL 100 - 129 mg/dl NEAR OR ABOVE OPTIMAL 130 - 159 mg/dl BORDERLINE HIGH 160 - 189 mg/dl HIGH >190 mg/dl VERY HIGH Performed By: #### L IPID, TSH, T7, CMP ####[facility] [address] [place] [address]Dr. Lori Bautista Triglyceride [Mass/Vol] 73 mg/dL Normal <=150 [facility] Comment on above: Performed By: #### L IPID, TSH, T7, CMP ####[facility] [address] [place] [address]Dr. Lori Bautista VLDL CALC 14.6 mg/dL Normal [facility] Comment on above: Performed By: #### L IPID, TSH, T7, CMP ####[facility] [address] [place] [address]Dr. Lori Bautista PROF 14(COMP METB)on 022 Albumin [Mass/Vol] 3.9 g/dL Normal 3.4-5.0 [facility] Comment on above: Performed By: #### L IPID, TSH, T7, CMP ####[facility] [address] [place] [address]Dr. Lori Bautista Albumin/Globulin [Mass ratio] 1.2 {ratio} Normal [facility] Comment on above: Performed By: #### L IPID, TSH, T7, CMP ####[facility] [address] [place], [place] [address]Dr. Lori Bautista ALP [Catalytic activity/Vol] 68 U/L Normal 46-116 [facility] Comment on above: Performed By: #### L IPID, TSH, T7, CMP ####[facility] [address] [place], [place] [address]Dr. Lori Bautista ALT [Catalytic activity/Vol] 20 U/L Normal 14-59 [facility] Comment on above: Performed By: #### L IPID, TSH, T7, CMP ####[facility] [address] [place], [place] [address]Dr. Lori Bautista Anion gap [Moles/Vol] 8.2 mmol/L Normal [facility] Comment on above: Performed By: #### L IPID, TSH, T7, CMP ####[facility] [address] [place], [place] [address]Dr. Lori Bautista AST [Catalytic activity/Vol] 22 U/L Normal 15-37 [facility] Comment on above: Performed By: #### L IPID, TSH, T7, CMP ####[facility] [address] [place], [place] [address]Dr. Lori Bautista Bilirubin [Mass/Vol] 0.3 mg/dL Normal 0.2-1.0 [facility] Comment on above: Performed By: #### L IPID, TSH, T7, CMP ####[facility] [address] [place], [place] [address]Dr. Lori Bautista Calcium [Mass/Vol] 9.2 mg/dL Normal 8.5-10.1 [facility] Comment on above: Performed By: #### L IPID, TSH, T7, CMP ####[facility] [address] [place] [address]Dr. Lori Bautista Chloride [Moles/Vol] 105 mmol/L Normal 98-107 [facility] Comment on above: Performed By: #### L IPID, TSH, T7, CMP ####[facility] [address] [place], [place] [address]Dr. Lori Bautista CO2 [Moles/Vol] 30.0 mmol/L Normal 21.0-32.0 [facility] Comment on above: Performed By: #### L IPID, TSH, T7, CMP ####[facility] [address] [place], [place] [address]Dr. Lori Batuista Creatinine [Mass/Vol] 0.67 mg/dL Normal 0.55-1.02 [facility] Comment on above: Performed By: #### L IPID, TSH, T7, CMP ####[facility] [address] [place], [place] [address]Dr. Lori Bautista EGFR-AF SRI LANKAN >60 Normal >=60 [facility] Comment on above: Performed By: #### L IPID, TSH, T7, CMP ####[facility] [address] [place], [place] [address]Dr. Lori Bautista EGFR-NON AF SRI LANKAN >60 Normal >=60 [facility] Comment on above: Performed By: #### L IPID, TSH, T7, CMP ####[facility] [address] [place], [place] [address]Dr. Lori Bautista Globulin (S) [Mass/Vol] 3.3 g/dL Normal [facility] Comment on above: Performed By: #### L IPID, TSH, T7, CMP ####[facility] [address] [place], [place] [address]Dr. Lori Bautista Glucose [Mass/Vol] 84 mg/dL Normal 74-106 [facility] Comment on above: Performed By: #### L IPID, TSH, T7, CMP ####[facility] [address] [place] [address]Dr. Lori Bautista Potassium [Moles/Vol] 4.2 mmol/L Normal 3.5-5.1 [facility] Comment on above: Performed By: #### L IPID, TSH, T7, CMP ####[facility] [address] [place] [address]Dr. Lori Bautista Protein [Mass/Vol] 7.2 g/dL Normal 6.4-8.2 [facility] Comment on above: Performed By: #### L IPID, TSH, T7, CMP ####[facility] [address] [place], [place] [address]Dr. Lori Bautista Sodium [Moles/Vol] 139 mmol/L Normal 136-145 [facility] Comment on above: Performed By: #### L IPID, TSH, T7, CMP ####[facility] [address] [place], [place] [address]Dr. Lori Bautista Urea nitrogen [Mass/Vol] 18.0 mg/dL Normal 7.0-18.0 [facility] Comment on above: Performed By: #### L IPID, TSH, T7, CMP ####[facility] [address] [place], [place] [address]Dr. Lori Bautista Urea nitrogen/Creatinine [Mass ratio] 26.9 mg/mg Normal [facility] Comment on above: Performed By: #### L IPID, TSH, T7, CMP ####[facility] [address] [place], [place] [address]Dr. Lori Bautista TSHon 08-27-2022 TSH 1.615 uIU/mL Normal 0.358-3.740 [facility] Comment on above: Performed By: #### L IPID, TSH, T7, CMP ####[facility] [address] [place], [place] [address]Dr. Lori Bautista VITAMIN D 25 OHon 08-27-2022 VIT D 25-OH 73.1 ng/mL Normal [facility] Comment on above: Performed By: #### I SAROJ VITAD ####[facility] [address] [place], [place] [address]Dm. Lori Bautista VIT D RANGES SEE BELOW Normal [facility] Comment on above: Result Comment: <20 ng/mL Vit D deficient 20 - <30 ng/mL Vit D insufficient 30 - 100 ng/mL Vit D sufficient >100 ng/mL Potential Toxicity Performed By: #### I SAROJ, VITAD ####[facility] [address] [place], [place] [address]Eg. Lori Bautista MG MAMM SCREEN 3D APPLE CADon 08-04-2022 MG MAMM SCREEN 3D APPLE CAD Patient: NEVAEH THOMAS Exam Date: 08/04/2022 : 1945 Gender:F Ordering : DR CATALINA CERVANTES Admission #: [id number] Family : Order #: [id number] CLICK HERE TO VIEW EXAM RADIOLOGY REPORT [...] lung cancer at age 84. LOCATION: [facility] BREAST COMPOSITION: Heterogeneously dense,which may [...] MD on 08/04/2022 at 13:25 Normal [facility] Covid-19 PCR (CVDTB)on SARS-CoV-2 (COVID-19) RNA PABLO+probe Ql (Unsp spec) Not detected Normal NOT DETECTED [facility] Comment on above: Result Comment: This test is not yet approved or cleared by the [place] FDA. When there are no FDA-approved or cleared tests available, and other criteria are met, FDA can make tests available under an emergency access mechanism called an Emergency Use Authorization (EUA). The EUA for this test is supported by the Piercing Specialist of Health and Human Service's (HHS's) [...] SARS-CoV-2. Performed By: #### C VDTB #### [facility] [address] [place] [address] Dr. Lori Bautista SYMPTOMATIC COVID-19 ANTIGEN on 05-12-2022 EUA Statement SEE BELOW Normal [facility] Comment on above: Result Comment: This [...] sooner. Performed By: #### C VDAGS #### [facility] [address] [place] [address] Dr. Lori Bautista SARS-CoV-2 (COVID-19) RNA PABLO+probe Ql (Unsp spec) Negative Normal NEGATIVE [facility] Comment on above: Performed By: #### C VDAGS #### [facility] [address] [place], [place] [id number] Dr. Lori Bautista CALCIUMon 05-04-2022 Calcium [Mass/Vol] 9.6 mg/dL [facility] Comment on above: Performed By: #### LAZARUS LOBO ####[facility] [address] [place] [id number] Bautista CREATININEon 05-04-2022 Creatinine [Mass/Vol] 0.68 mg/dL Normal 0.55-1.02 [facility] Comment on above: Performed By: #### LAZARUS LOBO ####[facility] [address] [place] [id number]. Lori Bautista EGFR-AF SRI LANKAN Normal >=60 [facility] Comment on above: Performed By: #### LAZARUS LOBO ####[facility] [address] [place] [id number]. Lori Bautista EGFR-NON AF SRI LANKAN Normal >=60 [facility] Comment on above: Performed By: #### LAZARUS LOBO ####[facility] [address] [place] [id number]. Lori Bautista XR DEXA BONE DENSITYon 03-29 [...] by: ABBE WEBSTER Date: 2022-03-29 12:43 Normal [facility] XR KUB 1 VIEWon 12-18-2021 XR [...] by: ABBE WEBSTER Date: 2021-12-18 15:43 Normal [facility] Encounters Encounter Date Encounter Type Care Provider Facility Start: 11-06-2024 End: 11-06-2024 ambulatory Loni Covarrubias [facility] Work Phone: Start: 11-06-2024 End: 11-06-2024 Departed Referred Loni Covarrubias MD Work Phone: [facility]-LAB Path Spec [facility] Start: 10-02-2024 End: 10-02-2024 Office outpatient new 30 minutes Dariusz Rich DPM Work Phone: [facility] Comment on above: Pain of right foot ( Primary Dx); Plantar keratosis; Right foot pain; Corns and callosities Start: 10-02-2024 End: 10-02-2024 ambulatory DARIUSZ RICH Not Available Start: 04-23-2024 End: 12-10-2024 Telephone encounter Marcy Estrella DO Work Phone: Internal Medicine Comment on above: Orders Start: 03-27-2024 End: 03-27-2024 ambulatory MARCY ESTRELLA Facility:[facility] Start: 03-27-2024 End: 03-27-2024 Patient encounter procedure Marcy Estrella DO Work Phone: Orthopaedics Comment on above: Tendinopathy of righ t rotator cuff (Primary Dx); Degenerative tear of acetabular labrum Start: 03-05-2024 End: 03-05-2024 ambulatory CATALINO LONDON Facility:[facility] Start: 03-05-2024 End: 03-05-2024 Patient encounter [...] 01-31-2024 End: 01-31-2024 ambulatory MARCY D ESTRELLA Facility:[facility] Start: 01-31-2024 End: 01-31-2024 Subsequent hospital visit [...] DTaP,Tdap,Td Vaccine (3 - Td or Tdap) [facility] Start: 02-23-2026 OCT MACULA CIRRUS OU (BOTH EYES) OCT MACULA CIRRUS OU (BOTH EYES) [facility] Imaging Routine 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 Work Phone: Comment on above: Expected: 02/17/2025 Start: 11-07-2024 Advance Directive Discussion Advance Directive Discussion [facility] Start: 11-06-2024 Aerobic Culture Aerobic Culture [facility] Start: 11-06-2024 Microbial culture of sputum [facility] Start: 07-08-2024 Covid-19 Vaccine () Covid-19 Vaccine () [facility] Start: 07-08-2024 Covid-19 Vaccine () Covid-19 Vaccine () [facility] Start: 07-08-2024 Influenza vaccination C [facility] Start: 05-27-2024 Diabetes Screening Diabetes Screenin g [facility] Start: 03-27-2024 End: 03-27-2024 Patient encounter procedure 03/27/2024 1:15 PM EDT Office Visit Orthopaedics [address] [place] [address] Marcy Estrella, DO [address] [place] [address] 8 week right hip pain Orthopaedics Comment on above: 8 week right hip dave n Start: 11-07-2023 Advance Directive Discussion Advance Directive Discussion [facility] Start: 11-07-2023 Behavioral Health Screening Behavioral Health Screening [facility] Start: 11-07-2023 Depression Assessment Depression Ass essment [facility] Start: 07-08-2023 Covid-19 Vaccine () Covid-19 Vaccine () [facility] Start: 07-08-2023 Influenza vaccination Influenza Vacc ine (#1) [facility] Start: 11-07-2022 ADVANCE DIRECTIVE DISCUSSION ADVANCE DIRECTIVE DISCUSSION [facility] Start: 11-07-2022 DEPRESSION ASSESSMENT DEPRESSION ASS ESSMENT [facility] Start: 05-03-2022 COVID-19 VACCINE (4 - Booster for Pfizer series) COVID-19 VACCINE (4 - Booster for Pfizer series) [facility] Start: 2022 RSV Vaccine (1 - 1-dose 75+ series) RSV Vaccine (1 - 1-dose 75+ series) [facility] Start: 02-11-2012 BONE DENSITY BONE DENSITY [facility] Start: 02-11-2012 Screening for osteoporosis Bone Density Screening [facility] Start: 2007 RSV Vaccine (1 - 1-dose 60+ series) RSV Vaccine (1 - 1-dose 60+ series) [facility] Start: 1997 Influenza vaccination LUNG CANCER [facility] Start: 1997 Screening for malignant neoplasm of lung Lung Cancer Screening [facility] Start: 1997 SHINGRIX VACCINE (1 of 2) SHINGRIX VACCINE (1 of 2) [facility] Start: 02-11-1992 DIABETES SCREEN DIABETES SCREEN [facility] Start: 1966 Urine microalbumin profile DTAP,TDAP,TD (1 - Tdap) [facility] Start: 1965 ANNUAL PCP TEAM CHRONIC DISEASE VISIT ANNUAL PCP TEAM CHRONIC DISEASE VISIT [facility] Start: 1965 Anxiety Screening Anxiety Screening [facility] Start: 1965 Depression Screening Depression Scre ening [facility] Start: 1965 HEPATITIS C SCREENING HEPATITIS C [facility] Start: 1965 Hepatitis C screening Hepatitis C [facility] Start: 1965 SPIROMETRY SPIROMETRY [facility] Start: 1953 PNEUMOCOCCAL: 65+ (1 - PCV) PNEUMOCOCCAL: 65+ (1 - PCV) [facility] OCT MACULA CIRRUS OU (BOTH EYES) OCT MACULA CIRRUS OU (BOTH EYES) OPHT Imaging Routine 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 Work Phone: [facility] Immunizations Immunization Date Immunization Notes Care Provider Lulu diaz 08-07-2022 influenza virus vacc ine, unspecified formulation Marcy Estrella DO Work Phone: [facility] Payers Date Payer Category Payer Self-pay 2023 Medicare (Managed Care) [employer] [id number] 2020 Unknown [id number] 1959 Unknown [id number] 1945 Unknown [id number]. 2.593 1945 Unknown [id number] [id number]. 2.593 1945 Unknown [id number] [id number]. 2.593 1945 Unknown [id number] [id number]. 2.593 1945 Unknown [id number] [id number]. 2.593 1945 Unknown [id number] [id number]. 2.593 1945 Unknown [id number] [id number]. 2.593 1945 Unknown [id number] [id number]. 2.593 1945 Unknown [id number] [id number]. 2.1259 Medicare [id number] Private Health Insurance [id number] Unknown [place] [id number] Unknown [place] [facility] PFFS [id number] Unknown [id number] [id number] Social History Date Type Detail Facility Start: 11-12-2020 End: 10-02-2024 Tobacco smoking status MDIS Smokes tobacco daily [facility] Work Phone: History of tobacco use Cigarette Smoker C [facility] Work Phone: Start: 11-12-2020 End: 01-31-2024 Cigarettes smoked current (pack per day) - Reported 1 [facility] Start: 11-12-2020 End: 10-02-2024 Tobacco use and exposure Smokeless tobacco non-user [facility] Work Phone: Start: 02-28-2023 End: 03-05-2024 Alcohol intake Lifetime non-drinker (finding) [facility] Start: 09-09-2020 History SDOH Alcohol Frequency 1 [facility] Start: 1945 Sex Assigned At Female [facility] Start: 09-09-2020 End: 01-31-2024 Alcohol Use Disorder Identification Test - Consumption [AUDIT-C] [facility] How often to you hav e a drink containing alcohol? Never [facility] Average Number of Drinks Not on file [facility] Start: 09-08-2020 Gender identity Identifies as female gender (finding) [facility] Start: 09-08-2020 Sexual orientation Heterosexual (finding) [facility] Start: 10-02-2024 Alcoholic beverage intake Ex-drinker (finding) [facility] Tobacco smoking stat us MDIS Unknown if ever smoked [facility] Work Phone: Start: 11-07-2024 Sex Female (finding) [facility] Medical Equipment Procedure Code Equipment Code Equipment Origin al Text Equipment Identifier Dates Lens Iol 0d +15 Derik Uv Abs - [id number] Start: 11-19-2020 Comment on above: Description: -0.26 Lens Iol 0d +15 Derik Uv Abs - [id number] Start: 12-03-2020 Comment on above: Description: -0.33 Clinical Notes 02-28-2023 to 10-02-2024 Dariusz Rich DPM - 10/02/2024 1:30 PM ESTTelephone Encounter - Victoria Watson - 04/23/2024 10:58 AM EDTTelephone Encounter - Vicotria Watson - 04/23/2024 10:58 AM EDT Note [...] 6. Reappoint p.r.n. documented in this encounter [facility] 04-23-2024 Telephone encounter Note April from [facility] is calling Marcy Estrella DO today with concern regarding evaluation that was faxed on February 20. Requested provider's signature to be faxed with it. Please advise. Patient has been identified by name and birthdate. Duration of symptoms: N/A Person calling: April Call patient at: [phone] ext [phone] Was an appointment scheduled: No Closing statement: Results or non-symptom based questions: Thank you for calling [facility], your call will be returned within the next business day. Thank you, Victoria Watson [facility] 04-23-2024 Miscellaneous Notes April from [facility] is calling Marcy Estrella DO today with concern regarding evaluation that was faxed on February 20. Requested provider's signature to be faxed with it. Please advise. Patient has been identified by name and birthdate. Duration of symptoms: N/A Person calling: April Call patient at: [phone] ext [phone] Was an appointment scheduled: No Closing statement: Results or non-symptom based questions: Thank you for calling [facility], your call will be returned within the next business day. Thank you, Victoria Watson documented in this encounter [facility] 03-27-2024 Note HNO ID: [id number] Author: MARCY ESTRELLA DO Service: ? Author [...] Follow-up as needed Procedures Marcy Estrella DO [facility] 03-27-2024 History of Present illness Narrative [...] Marcy Estrella DO documented in this encounter [facility] 03-05-2024 Note HNO ID: [id number] Author: CATALINO LONDON OD Service: ? Author Type: SCREEN CUTTER AND TRIMMER Type: Progress Notes Filed: 03/05/2024 17:08 Note Text: [facility]: 1. Keratoconjunctivitis sicca of both eyes [...] Z96.1 Monitor March 05, 2024 5:03 PM [facility] 03-05-2024 History of Present illness Narrative Documentation transcribed from Paper notes from [facility] ASSESSMENT/PLAN: 1. Keratoconjunctivitis sicca of [...] 2024 5:03 PM documented in this encounter [facility] 02-16-2024 Note HNO ID: [id number] Author: JUDY LOPEZ RT(R) Service: ? Author [...] PATIENT PRESENTS WITH AN IMPLANTABLE OR ATTACHED MILLER FIRST: No RADIOLOGY DEPARTMENT: General X-ray: Exam(s) Completed: Upper Extremity X-Ray(s): Shoulder, AP / TRUE AP / AXILLARY right PERIPHERAL IV DATA: Not applicable SIGNED BY: RT Anthony(R) February 16, 2024 1:02 PM [facility] 02-16-2024 History of Present illness Narrative [...] PATIENT PRESENTS WITH AN IMPLANTABLE OR ATTACHED MILLER FIRST: No RADIOLOGY DEPARTMENT: General X-ray: Exam(s) Completed: Upper Extremity X-Ray(s): Shoulder, AP / TRUE AP / AXILLARY right PERIPHERAL IV DATA: Not applicable SIGNED BY: RT Anthony(R) February 16, 2024 1:02 PM documented in this encounter [facility] 02-16-2024 Note HNO ID: [id number] Author: MARCY ESTRELLA, DO Service: ? Author [...] decision making as documented. Marcy Estrella DO [facility] 02-16-2024 History of Present illness Narrative [...] Marcy Estrella DO documented in this encounter [facility] 01-31-2024 Note HNO ID: [id number] Author: MARCY ESTRELLA DO Service: ? Author [...] decision making as documented. Marcy Estrella DO [facility] 01-31-2024 History of Present illness Narrative [...] the treatment plan as detailed above. Emily Scalse MD Primary Care Sports Medicine Fellow, PGY4 I personally saw in evaluating the patient today. I personally obtain the leong and critical portions of the history and physical exam. I reviewed the resident/fellow's documentation and discuss the patient with the resident/fellow. I agree with the resident/fellow's medical decision making as documented. Marcy Estrella DO documented in this encounter [facility] 01-31-2024 Note HNO ID: [id number] Author: MARTHA CROOKS RT(R) Service: ? Author [...] PATIENT PRESENTS WITH AN IMPLANTABLE OR ATTACHED MILLER FIRST: No RADIOLOGY DEPARTMENT: General X-ray: Exam(s) Completed: Pelvis X-Ray: Pelvis with Hip Right PERIPHERAL IV DATA: Not applicable SIGNED BY: RT Elisa(R) January 31, 2024 2:01 PM [facility] 02-28-2023 History of Present illness Narrative [...] 2023 1:19 PM documented in this encounter [facility] Evaluation note Diagnosis Vitreous degeneration, [...] (degenerative) of retina [facility] Diagnosis Degenerative tear of acetabular labrum- Primary Pain in right hip Pain in joint, pelvic region and thigh Primary osteoarthritis of right hip Primary localized osteoarthrosis, pelvic region and thigh [facility] Diagnosis Tendinopathy of right rotator cuff- Primary Impingement syndrome of right shoulder Other affections of shoulder region, not elsewhere classified [facility] Diagnosis Keratoconjunctivitis sicca of both [...] of acetabular labrum [facility]* Diagnosis Preop examination- Primary Preoperative [...] Pain Generalized pain [facility] [place] [facility] Diagnosis Pain of right foot- Primary Plantar keratosis Right foot pain Pain in soft tissues of limb Corns and callosities [facility] noteNo assessment information availableDay[facility] Work Phone: [facility] for referral (narrative)* Diagnostic Procedure Only (Routine) - Closed Specialty Diagnoses / Procedures Referred By Contac t Referred To Contact XR IMAGING Diagnoses Acute pain of right shoulder Procedures XR SHOULDER GENERAL 3V OR MORE AP/TRUE AP/OTHER RIGHT RADEX SHOULDER COMPLETE MINIMUM 2 VIEWS Marcy Estrella, DO [address] [place] [address] [place] [address] Referral ID Status Reason Start Date Expiration Date V isits Requested Visits Authorized [id number] Closed Auto-Generate d Referral 02/07/2024 03/08/2025 1 1 [facility] for referral (narrative)* Diagnostic Procedure Only (Routine) - Closed Specialty Diagnoses / Procedures Referred By Contac t Referred To Contact XR IMAGING Diagnoses Pain Procedures XR HIP GENERAL 3V PELV/AP/LAT RIGHT RADEX HIP UNILATERAL WITH PELVIS 2-3 VIEWS Marcy Estrella, DO [address] [place] [address] [place] [id number] Referral ID Status Reason Start Date Expiration Date V isits Requested Visits Authorized [id number] Closed Auto-Generate d Referral 01/24/2024 02/22/2025 1 1 [facility] for visit Narrative* Diagnostic Procedure Only (Routine) - Closed Specialty Diagnoses / Procedures Referred By Contac t Referred To Contact XR IMAGING Diagnoses Acute pain of right shoulder Procedures XR SHOULDER GENERAL 3V OR MORE AP/TRUE AP/OTHER RIGHT RADEX SHOULDER COMPLETE MINIMUM 2 VIEWS Marcy Estrella, DO [address] [place] [address] [place] [address] Referral ID Status Reason Start Date Expiration Date V isits Requested Visits Authorized [id number] Closed Auto-Generate d Referral 02/07/2024 03/08/2025 1 1 [facility]* Diagnostic Procedure Only (Routine) - Closed Specialty Diagnoses / Procedures Referred By Contac t Referred To Contact XR IMAGING Diagnoses Pain Procedures XR HIP GENERAL 3V PELV/AP/LAT RIGHT RADEX HIP UNILATERAL WITH PELVIS 2-3 VIEWS Marcy Estrella, DO [address] [place] [address] [place] [address] Referral ID Status Reason Start Date Expiration Date V isits Requested Visits Authorized [id number] Closed Auto-Generate d Referral 01/24/2024 02/22/2025 1 1 [facility] Summary Purpose Family History No [...] the event of a Fluress shortage, administer Tad-Fluor 1 drop into both eyes as directed [...] THERAPY EVALUATION HIGH COMPLEX 45 MINS Marcy sEtrella, DO [address] [place] [address] [facility] [address] [address] Referral ID Status Reason Start Date Expiration Date Visits Requested Visits Authorized [id number] Pending Review Auto-Generat ed Referral 01/31/2024 01/30/2025 1 1 Specialty Diagnoses / Procedures Referred By Milagros maxwell Referred To Contact [facility] Diagnoses Tendinopathy of right rotator cuff Impingement syndrome of right shoulder Procedures CONSULT TO PHYSICAL THERAPY PHYSICAL THERAPY EVALUATION HIGH COMPLEX 45 MINS Marcy Estrella, DO [address] [place] [address] [address] Referral ID Status Reason Start Date Expiration Date Visits Requested Visits Authorized [id number] Pending Review Auto-Generat ed Referral 02/16/2024 02/15/2025 1 1 Additional Source Comments INFORMATION SOURCE (unrecogn ized section and content) DATE CREATED AUTHOR 12/07/2022 [facility] DATE CREATED AUTHOR AUTHOR'S ORGANIZ ATION 10/05/2024 [facility] EPIC DATE CREATED AUTHOR AUTHOR'S ORGANIZ ATION 11/18/2024 [facility] DATE CREATED AUTHOR AUTHOR'S ORGANIZ ATION 12/11/2024 [facility] Source Comments (unrecognize d section and content) In the event this informatio n is protected by the Federal Confidentiality of Alcohol and Drug Abuse Patient Records regulations: The Federal rules restrict any use of the information to criminally investigate or prosecute any alcohol or drug abuse patient.[facility] the event this information is protected by the Federal Confidentiality of Alcohol and Drug Abuse Patient Records regulations: The Federal rules restrict any use of the information to criminally investigate or prosecute any alcohol or drug abuse patient.[facility] Center[facility] the event this information is protected by the Federal Confidentiality of Alcohol and Drug Abuse Patient Records regulations: The Federal rules restrict any use of the information to criminally investigate or prosecute any alcohol or drug abuse patient.[facility] Center[facility] the event this information is protected by the Federal Confidentiality of Alcohol and Drug Abuse Patient Records regulations: The Federal rules restrict any use of the information to criminally investigate or prosecute any alcohol or drug abuse patient.[facility] Center[facility] the event this information is protected by the Federal Confidentiality of Alcohol and Drug Abuse Patient Records regulations: The Federal rules restrict any use of the information to criminally investigate or prosecute any alcohol or drug abuse patient.[facility] CenterIn the event this information is protected by the Federal Confidentiality of Alcohol and Drug Abuse Patient Records regulations: The Federal rules restrict any use of the information to criminally investigate or prosecute any alcohol or drug abuse patient.[facility] Center[facility] the event this information is protected by the Federal Confidentiality of Alcohol and Drug Abuse Patient Records regulations: The Federal rules restrict any use of the information to criminally investigate or prosecute any alcohol or drug abuse patient.[facility] Center[facility] the event this information is protected by the Federal Confidentiality of Alcohol and Drug Abuse Patient Records regulations: The Federal rules restrict any use of the information to criminally investigate or prosecute any alcohol or drug abuse patient.[facility] Center[facility] the event this information is protected by the Federal Confidentiality of Alcohol and Drug Abuse Patient Records regulations: The Federal rules restrict any use of the information to criminally investigate or prosecute any alcohol or drug abuse patient.[facility] Reason for Visit (unrecogniz ed section and content) Reason Comments Yearly Exam Floaters Both Eyes Reason Comments New Right Hip Pain Reason Comments Radiology XR Reason Comments New Pain (Shoulder Pain) Reason Comments Dry Eye(s) Both Eyes Vitreous Degeneration (Pvd) Reason Comments Established Patient Right Hip Pain Reason Comments Orders Care Teams (unrecognized sec tion and content) Gettering Operator Relationship Specialty Start Date End Date Loni Covarrubias MD PCP - General Family Medicine 08/31/10 Gettering Operator Relationship Specialty Start Date End Date Loni Covarrubias MD PCP - General Family Medicine 08/31/10 Gettering Operator Relationship Specialty Start Date End Date Loni Covarrubias MD PCP - General Family Medicine 08/31/10 Gettering Operator Relationship Specialty Start Date End Date Loni Covarrubias MD PCP - General Family Medicine 08/31/10 Gettering Operator Relationship Specialty Start Date End Date Loni Covarrubias MD PCP - General Family Medicine 08/31/10 Gettering Operator Relationship Specialty Start Date End Date Loni Covarrubias MD PCP - General Family Medicine 10/25/10 Gettering Operator Relationship Specialty Start Date End Date Loni Covarrubias MD PCP - General Family Medicine 08/31/10 Gettering Operator Relationship Specialty Start Date End Date Loni Covarrubias MD PCP - General Family Medicine 08/31/10 Gettering Operator Relationship Specialty Start Date End Date Loni Covarrubias MD [address] [place] [address] PCP - General Family Medicine 10/02/24 Team Status: Inactive Member Role Status Dates Loni Covarrubias MD Attending Provider Active Sta rt: November 06, 2024 End: November 06, 2024 Gettering Operator Relationship Specialty Start Date End Date [...] BE BASED ON THE PRIMARY CLINICAL RECORDS. [facility]. provides no warranty or guarantee of the accuracy or completeness of information in this document.
== END 2025-02-01 09:53 | disposition home or self-care (01) ==
LOC: CARD 09:52
PROVIDERS: PCP Family Medicine; Visit Provider Family Medicine
DX: R60.0 Localized edema (principal); R60.9 Edema, unspecified; Z13.820 Encounter for screening for osteoporosis; M85.80 Other specified disorders of bone density and structure, unspecified site; M81.0 Age-related osteoporosis without current pathological fracture
CPT/HCPCS: 77080; 93306

== ENCOUNTER 2025-05-21 09:59 | Outpatient (OUT) | payer MEDICARE, OTHER, SELFPAY ==
--- OUTSIDE RECORDS SUMMARY | 2025-05-21 10:03 | XMS_ITS | Encounter Summary ---
Author Organization [facility] Address [address] [place] [address] Care Team Providers Care Dry Kiln Operator Name Role Phone Dileep Covarrubias MD Primary Care Provider [phone] Source Comments In the event this information is protected by the Federal Confidentiality of Alcohol and Drug AbusePatient Records regulations: The Federal rules restrict any use of the information to criminally investigate or prosecute any alcohol or drug abuse patient.[facility] Reason for Visit * Reason Comments Radiology XR Encounter Details Date Type Department Care Team (Late st Contact Info) Description 01/31/2024 Radiology Radiology [address] [facility] [place] [address] Lala Ceron RT(R) Radiology XR Social History Tobacco Use Types Packs/Day Years Used Date Smoking Tobacco: Every Day Cigarettes 1 53 Smokeless Tobacco: Never Alcohol Use Standard Drinks/Week Comments Never 0 (1 standard drink = 0.6 oz pur e alcohol) AUDIT-C Answer Date Recorded Q1: How often do you have a drink containing alc ohol? Never 09/09/2020 Average Number of Drinks Not on file 020 Frequency of Binge Drinking Not on file 01/2020 PHQ-2 Answer Date Recorded PHQ-2 score 0 01/24/2024 Area Deprivation Index Answer Date Joe rded National Score (1-100), lower number is lower ri sk 61 01/31/2024 State Score (1-10), lower number is lower risk 4 01/31/2024 Data from: https://www.neighborhoodatlas.medicine.[facility]/. Last address used for calculation [address] 01/31/2024 Comments No Sex and Gender Information Value Date Recorded Sex Assigned at Female 09/08/2020 10:57 PM EST Legal Sex Female 8:32 AM EST Gender Identity Female 09/08/2020 10:57 PM EST Sexual Orientation Straight 09/08/2020 10 :57 PM EST documented as of this encounter Progress Notes * Lala Ceron RT(R) - 01/31/2024 2:01 PM EDT Radiology Service Progress Note PATIENT NAME: Nevaeh Zayas DATE OF SERVICE: January 31, 2024 TIME: 2:01 PM PATIENT IDENTITY VERIFICATION COMPLETED USING TWO (2) IDENTIFIERS: Name and Date of confirmedby patient verbally. FALL SCREENING: Has the patient had 2 falls in the last year or 1 fall with injury or currently using an Ambulatory Assistive Device (Walker, Cane, Wheelchair, Crutches, etc.)? No PATIENT GENDER DATA: Female. status: : No status: NO. PATIENT RELEVANT IMPLANT DATA REVIEWED: Not Applicable PATIENT PRESENTS WITH AN IMPLANTABLE OR ATTACHED YARD ENGINEER: No RADIOLOGY DEPARTMENT: General X-ray: Exam(s) Completed: Pelvis X-Ray: Pelvis with Hip Right PERIPHERAL IV DATA: Not applicable SIGNED BY: RT Elisa(R) January 31, 2024 2:01 PM documented in this encounter Plan of Treatment Not on file documented as of this encounter Visit Diagnoses Not on filedocumented in this encounter Care Teams Dry Kiln Operator Relationship Specialty Start Date End Date Dileep Covarrubias MD PCP - General Family Medicine 08/31/10 documented as of this encounter
--- OUTSIDE RECORDS SUMMARY | 2025-05-21 10:03 | XMS_ITS | Clinical Summary ---
Author Organization [facility] Address [address] [place] [address] Care Team Providers Care Cloth Finishing Range Back Tender Name Role Phone Dileep Covarrubias MD Primary Care Provider [phone] Allergies Active Allergy Reactions Criticality Noted Date Comments Gervaoe-Ozx-Ltp Reductase Inhibitors Unknown 02/28/2023 Medications pantoprazole (PROTONIX) 40 mg ORAL tablet Take one(1) tablet daily. 0 0 Active gemfibrozil (LOPID) 600 mg ORAL tablet Take one(1) tablet two(2) times daily. 0 0 Active ascorbic acid, vitamin C, (VITAMIN C) 500 mg tablet 0 Active aspirin, enteric coated (ASPIRIN, ENTERIC COATED) 81 mg EC tablet 0 Active Biotin 2,500 mcg cap 0 Active CALCIUM CITRATE-VITAMIN D3 ORAL 0 Active docusate sodium (COLACE) 100 mg capsule 0 Active ezetimibe (ZETIA) 10 mg tablet Take 10 mg by mouth once daily. 0 Active BREO ELLIPTA 100-25 mcg/dose inhaler 0 Active glucosamine-cho ndroitin 500-400 mg capsule 0 Active mecobalamin, vitamin B12, 1,000 mcg chew 5 Active multivit,iron,m inerals/lutein (CENTRUM SILVER ULTRA WOMEN'S ORAL) 0 Active Simethicone 125 mg cap 5 Active vitamin E mixed 400 unit cap 0 Active omega 6-dqp-hvt-fish oil (FISH OIL) 100-160-1,000 mg cap Fish Oil Active denosumab (PROLIA SUBCUTANEOUS) 0 Active gabapentin (NEURONTIN) 100 mg capsule Take 1 capsule by mouth once daily as needed (for sciatica) for up to 180 days. 1 Active albuterol HFA (PROAIR HFA) 90 mcg/actuation inhaler 2 Puffs every 6 hours as needed. Take as directed 1 Active cyanocobalamin/ folic acid (VITAMIN T03-YBAMA ACID) 1,000-[address] by sublingual route. Active Active Problems Problem Noted Date Diagnosed Date COPD (chronic obstructive pulmonary disease) Assessment & Plan (11/12/2020 11:32 AM EST): Assessment: uses Breo once daily. States does not need albuterol. States COPD is mild. Admits to chronic mostly dry smoker's cough without new symptoms. States breathing is stable. Denies home oxygen use. Encouraged smoking cessation. GERD (gastroesophageal reflux disease) Assessment & Plan (11/12/2020 11:32 AM EST): Assessment: on prescription Protonix. Reports symptoms are controlled with medication HLD (hyperlipidemia) Assessment & Plan (11/12/2020 11:32 AM EST): Assessment: on Lopid and Zetia. Tobacco abuse Assessment & Plan (11/12/2020 11:32 AM EST): Assessment: 1 ppd x 53 years. 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); Drusen of macula; Keratoconjunctivitis sicca of both eyes not specified as Sjogren's; Vitreous degeneration, bilateral; Pseudophakia of both eyes 02/28/2025 Travel from Last 3 Months Family History Medical History Relation Comments unknown Father unknown Mother Relation Status Comments Father Mother Social History Tobacco Use Types Packs/Day Years Used Date Smoking Tobacco: Every Day Cigarettes 1 53 Smokeless Tobacco: Never Tobacco Cessation:Ready to Q uit: No; Counseling Given: Yes Alcohol Use Standard Drinks/Week Comments Never 0 (1 standard drink = 0.6 oz pur e alcohol) AUDIT-C Answer Date Recorded Q1: How often do you have a drink containing alc ohol? Never 09/09/2020 Average Number of Drinks Not on file 020 Frequency of Binge Drinking Not on file 01/2020 PHQ-2 Answer Date Recorded PHQ-2 score 0 03/26/2024 Area Deprivation Index Answer Date Joe rded National Score (1-100), lower number is lower ri sk 61 01/31/2024 State Score (1-10), lower number is lower risk 4 01/31/2024 Data from: https://www.neighborhoodatlas.medicine.[facility]/. Last address used for calculation [address] [place] [address] 01/31/2024 Comments No Sex and Gender Information Value Date Recorded Sex Assigned at Female 09/08/2020 10:57 PM EST Legal Sex Female 8:32 AM EST Gender Identity Female 09/08/2020 10:57 PM EST Sexual Orientation Straight 09/08/2020 10 :57 PM EST Last Filed Vital Signs Vital Sign Reading Time Taken Comments Blood Pressure 130/60 12/03/2020 9:50 AM EST Pulse 70 12/03/2020 9:50 AM EST Temperature 36.2 C (97.1 F) 12/03/2020 9:38 AM EST Respiratory Rate 16 12/03/2020 9:50 AM EST Oxygen Saturation 95% 12/03/2020 9:5 0 AM EST Inhaled Oxygen Concentration - - Weight 59 kg (130 lb) 11/12/2020 11:08 AM EST patient reported Height 154.9 cm (5' 1 ) 11/12/2020 11:0 8 AM EST patient reported Body Mass Index 24.56 11/12/2020 11:08 AM EST Plan of Treatment Health Maintenance Due Date Last Done Comments Annual PCP Team Chronic Dise ase Visit 1963 Anxiety Screening 1963 Depression Screening 1965 Hepatitis C Screening 1963 Bone Density Screening 02/11/2012 RSV Vaccine (1 - 1-dose 75+ series) 2022 Diabetes Screening 05/27/2024 05/27/2021 Covid-19 Vaccine (4 - 2023-2 5 season) 2024 03/08/2022, 04/28/2021, 04/07/2021 Advance Directive Discussion 11/07/2024 Medicare Advantage Annual Wellness Visit 11/07/2024 Influenza Vaccine (#1) 2025 2, 08/13/2021, 07/20/2020, Additional history exists DTaP,Tdap,Td Vaccine (3 - Td or Tdap) 08/01/2026 08/01/2016, 07/25/2016 Pneumococcal Vaccine: 50+ Completed 08/05/2017, 01/2014 Shingrix Vaccine Completed 11/04/2019, 09/01/2019 Mammogram Screening Discontinued 08/04/2022, 08/04/2022, 08/03/2021, Additional history exists Medical Devices Implanted Type Area Jig Inspector Device Identifier Shelf Expiration Date Model / Serial / Lot Lens Iol 0d +15 Derik Uv Abs - [id number] Implanted:Qty : 1 on 11/19/2020 by Celena Wade V, MD at [facility] Intraocular Lens Left: Eye [employer] 02/03/2025 SA60WF.15 0 / [id number] / Description:-0.26 Lens Iol 0d +15 Derik Uv Abs - [id number] Implanted:Qty : 1 on 12/03/2020 by Celena Wade V, MD at [facility] Intraocular Lens Right: Eye [employer] 05/06/2023 SA60WF.15 0 / [id number] / Description:-0.33 Procedures Procedure Name Priority Date/Time Associated Diagnosis Comments OCT MACULA CIRRUS OU (BOTH EYES) Routine 03/06/2025 1:54 PM EDT 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 Event Lighting Specialist Information [employer] Mdm Developer: . OCT Macula Interpretation Right Eye Normal foveal contour. Findings include Drusen, RPE Irregularity; Negative for Intraretinal fluid, Subretinal fluid. Left Eye Normal foveal contour. Findings include Drusen, RPE Irregularity; Negative for Intraretinal fluid, Subretinal fluid. Interval Change Right Eye Stable. Left Eye Stable. Devon London OD OPHTHALMOLOGY Final Result from Last 3 Months Insurance [employer] MEDICARE ADVANTAGE O Care Teams Cloth Finishing Range Back Tender Relationship Specialty Start Date End Date Dileep Covarrubias MD PCP - General Family Medicine 08/31/10
--- OUTSIDE RECORDS SUMMARY | 2025-05-21 10:03 | XMS_ITS | Clinical Summary ---
Author Organization [facility] Address [address] [place] [address] Care Team Providers Care Machine Welt Butter Name Role Phone Dileep Covarrubias MD Primary Care Provider [phone] Allergies No known active allergies Medications ezetimibe (Zetia) 10 MG tablet TAKE 1 TABLET BY MOUTH EVERY DAY FOR 90 DAYS Active pantoprazole (ProtoNix) 40 MG EC tablet Take 1 tablet by mouth Daily Active gabapentin (Neurontin) 100 MG capsule 1 capsule 1 (one) time each day at the same time Active cyanocobalamin (Vitamin B-12) 1000 MCG tablet Orally Acti ve simethicone (Mylicon) 125 MG chewable tablet 1 (one) time each day at the same time Active Biotin 2500 MCG chewable tablet Acti ve Ascorbic Acid (Vitamin C) 500 MG capsule Vitamin C Active Calcium Citrate-Vitamin D (CALCIUM CITRATE + D PO) Take by mouth Active glucosamine-ander droitin 500-400 MG tablet Take 1 tablet by mouth in the morning and 1 tablet in the evening and 1 tablet before bedtime. Active fish oil concentrate (Wolverine-3) 300 MG capsule Take 550 mg by mouth Daily Active polyethylene glycol, PEG, 3350 (Miralax) 17 g packet Take by mouth Active Fluticasone Furoate-Vilanter ol (Breo Ellipta) 100-25 MCG/ACT aerosol powder Inhale Active gemfibrozil (Lopid) 600 MG tablet Take 600 mg by mouth in the morning and 600 mg in the evening. Take before meals. Active Denosumab (PROLIA SC) Inject under the skin Active Multiple Vitamin (multivitamin) tablet Take 1 tablet by mouth Daily Active vitamin E 180 MG (400 UNIT) capsule Take 180 mg by mouth Daily Active docusate sodium (Colace) 100 MG capsule Take 100 mg by mouth in the morning and 100 mg before bedtime. Active aspirin 81 MG EC tablet Take 81 mg by mouth Daily Active Active Problems Problem Noted Date Diagnosed Date COPD (chronic obstructive pulmonary disease) GERD (gastroesophageal reflux disease) HLD (hyperlipidemia) 10/02/2024 Family History Medical History Relation Name Comments Heart disease Father Cancer Mother Relation Name Status Comments Father Mother Social History Tobacco Use Types Packs/Day Years Used Date Smoking Tobacco: Every Day Cigarettes Smokeless Tobacco: Never Tobacco Cessation:Ready to Q uit: Not Asked; Counseling Given: Not Answered Alcohol Use Standard Drinks/Week Comments Not Currently 0 (1 standard drink = 0.6 oz pur e alcohol) Comments Unknown Sex and Gender Information Value Date Recorded Sex Assigned at Female 09/07/2024 6:09 PM EDT Legal Sex Female 6:47 PM EDT Gender Identity Female 09/07/2024 6:09 PM EDT Sexual Orientation Straight 09/07/2024 6: 09 PM EDT Last Filed Vital Signs Vital Sign Reading Time Taken Comments Blood Pressure 120/80 11/09/2021 12:00 PM EST Pulse - - Temperature - - Respiratory Rate - - Oxygen Saturation - - Inhaled Oxygen Concentration - - Weight 56.7 kg (125 lb) 11/09/2021 12:00 PM EST Height 156.2 cm (5' 1.5 ) 11/09/2021 12:00 PM ES T Body Mass Index 23.24 11/09/2021 12:00 PM EST Plan of Treatment Health Maintenance Due Date Last Done Comments Influenza Vaccine (#1) 2025 2, 08/13/2021, 07/20/2020, Additional history exists Pneumococcal Vaccine: 65+ Years Completed 7, 10/09/2014 Insurance [facility] MEDICARE ADVANTAGE Care Teams Machine Welt Butter Relationship Specialty Start Date End Date Dileep Covarrubias MD PCP - General Family Medicine 10/02/24
--- OUTSIDE RECORDS SUMMARY | 2025-05-21 10:03 | XMS_ITS | Encounter Summary ---
Author Organization [facility] Address [address] [place] [address] Care Team Providers Care Financial Institution Manager Name Role Phone Dileep Covarrubias MD Primary Care Provider [phone] Source Comments In the event this information is protected by the Federal Confidentiality of Alcohol and Drug AbusePatient Records regulations: The Federal rules restrict any use of the information to criminally investigate or prosecute any alcohol or drug abuse patient.[facility] Encounter Details Date Type Department Care Team (Late st Contact Info) Description 01/23/2024 Patient Msg Orthopaedics [address] [place], [place] [id number] Provider, [facility] Appointment Request Social History Tobacco Use Types Packs/Day Years [...] (1-100), lower number is lower ri sk 65 02/28/2023 State Score (1-10), lower number is lower risk N ot on file 02/28/2023 Data from: https://www.neighborhoodatlas.medicine.[facility]/. Last address used for calculation [address] [facility] 02/28/2023 Comments No Sex and Gender Information Value Date Recorded Sex Assigned at Female 09/08/2020 10:57 PM EST Legal Sex Female 8:32 AM EST Gender Identity Female 09/08/2020 10:57 PM EST Sexual Orientation Straight 09/08/2020 10 :57 PM EST documented as of this encounter Plan of Treatment Not on file documented as of this encounter Visit Diagnoses Not on filedocumented in this encounter Care Teams Financial Institution Manager Relationship Specialty Start Date End Date Dileep Covarrubias MD PCP - General Family Medicine 08/31/10 documented as of this encounter
== END 2025-05-21 10:00 | disposition home or self-care (01) ==
LOC: US 10:01
PROVIDERS: PCP Family Medicine; Visit Provider Family Medicine
DX: R60.0 Localized edema (principal)
CPT/HCPCS: 93970

== ENCOUNTER 2025-08-15 11:28 | Outpatient (OUT) | payer MEDICARE, OTHER, SELFPAY ==
--- NOTE | 2025-08-15 11:31 | MM_ITS ---
Patient Name: MIYA THOMAS MR#: [id number] : 1945 Exam Date: 08/15/2025 Ordering Doctor: DR LONI ROSALES . RADIOLOGY REPORT PROCEDURE: MM TOMOSYNTHESIS SCREENING BI COMPARISON: MM TOMOSYNTHESIS SCREENING BI, 08/13/2024. MM TOMOSYNTHESIS SCREENING BI, 08/11/2023. MG MAMM SCREEN 3D APPLE CAD, 08/04/2022. MG MAMM APPLE SCRN W CAD DIG, 09/07/2013. INDICATIONS: Screening for malignant neoplasm Calculator Name NCI Breast Cancer Risk Assessment Tool 5 Year Breast Cancer Risk 2.40% Lifetime Breast Cancer Risk 4.30% Personal Breast Cancer No Personal Ovarian Cancer No Treatments None Family Cancers Mother with lung cancer at age 82. LOCATION: [facility] BREAST COMPOSITION: There are scattered areas of fibroglandular density. FINDINGS: DIAGNOSTIC CATEGORY 1--NEGATIVE. RIGHT BREAST: No significant suspicious finding. LEFT BREAST: No significant suspicious finding. RECOMMENDATIONS: ROUTINE MAMMOGRAM AND CLINICAL EVALUATION IN 12 MONTHS. Dictated by: Brandon Carmona DO on 08/15/2025 at 14:40 Approved by: Brandon Carmona DO on 08/15/2025 at 14:41
--- OUTSIDE RECORDS SUMMARY | 2025-08-15 11:33 | XMS_ITS | CCD ---
Author Organization [facility] Care Team Providers Care Still Photographer Name Role Phone BOBBY, DR IVEY Admitting Unavailable HOY, DR [...] Unavailable BOBBY, DR IVEY Primary Care Unavailable HOY, DR IVEY Primary Care Unavailable HOY, DR IVEY Consulting Unavailable BOBBY, [...] Attending Unavailable Loni Covarrubias MD Attending Provider [phone] Loni Covarrubias Attending Unavailable Loni Covarrubias Admitting Unavailable CATALINO LONDON Attending UnavailCATALINO Weaver Referring Unavaila LONI Stephens Primary Care Unavailable MARCY ESTRELLA Attending Unavailable LONI COVARRUBIAS Primary Care Unavailable Allergies Allergy Classification Reported Allergen(s) Allergy Type Date of Onset Reaction(s) Facility (2 sources) black walnut pollen extract; Translations: [[id number] REDUCTASE INHIBITORS] Drug Allergy 02-28-2023 [facility] Repository (10 sources) HMG-CoA reductase inhibitor Drug Allergy 02-28-2023 Unknown [facility] Medications Current Medications Medication Drug Class(es) Dates Sig (Normalized) Sig (Original) [id number] 200 actuat albuterol 0.09 mg/actuat metered dose inhaler (10 sources) beta2-Adrenergic Agonist Start: 11-12-2020 take 2 puff(s) by inhalation every six hours as needed albuterol HFA (PROAIR HFA) 90 mcg/actuation inhaler 2 Puffs every 6 hours as needed. Take as directed 11/12/2020 Active Comment on above: 2 Puffs every 6 hour s as needed. Take as directed ascorbic acid 500 mg oral tablet (13 sources) Vitamin C Start: 11-07-1999 ascorbic acid, vitamin C, (VITAMIN C) 500 mg tablet 11/07/1999 Active Ascorbic Acid (V itamin C) 500 MG capsule Vitamin C Active aspirin 81 mg delayed release oral tablet (13 sources) Platelet Aggregation Inhibitor, Nonsteroidal Anti-inflammatory Drug Start: 11-07-1989 aspirin, enteric coated (ASPIRIN, ENTERIC COATED) 81 mg EC tablet 11/07/1989 Active benoxinate hydrochloride 4 mg/ml / fluorescein sodium 3 mg/ml ophthalmic solution (3 sources) Diagnostic Dye Start: 03-06-2025 End: 03-07-2025 fluorescein-benoxi manuel 0.3-0.4 % 1 drop (FLURESS) Start: 03-05-2024 End: 03-06-2024 fluorescein-benoxinate 0.25- 0.4 % 1 Drop (FLURESS) Start: 02-28-2023 End: 03-01-2023 fluorescein-benoxinate 0.25- 0.4 % 1 Drop (FLURESS) biotin 2.5 mg oral capsule (13 sources) Start: 11-07-1989 Biotin 2,500 m cg [...] by mouth Active CALCIUM CITRATE-VITAMIN D3 ORAL (10 sources) Start: 11-07-1989 CALCIUM CITRAT E-VITAMIN D3 ORAL 11/07/1989 Active Start: 11-07-1989 CALCIUM CITRAT E-VITAMIN D3 ORAL cholecalciferol 0.025 mg oral tablet (1 source) Vitamin D Start: 12-23-2017 take 1 tablet by mouth once daily Cholecalciferol (Vitamin D3) (Vitamin D3) 1,000 unit Tablet Active 1000 UNIT PO Daily December 23, 2017 12:00am chondroitin sulfates 400 mg / glucosamine hydrochloride 500 mg oral tablet (13 sources) Start: 12-23-2017 take 1 tablet by [...] and 1 tablet before bedtime. Active denosumab (12 sources) RANK Ligand Inhibitor Start: 07-08-2020 denosuma b (PROLIA SUBCUTANEOUS) 07/08/2020 Active Start: 07-08-2020 denosumab (PRO KARIS SUBCUTANEOUS) Denosumab (PROLI A SC) Inject under the skin Active docusate sodium 100 mg oral capsule (13 sources) Start: 11-07-1989 docusate sodiu m (COLACE) 100 mg capsule 11/07/1989 Active ezetimibe 10 mg oral tablet (12 sources) Dietary Cholesterol Absorption Inhibitor Start: 07-05-2020 take 1 tablet by mouth once daily ezetimibe (ZETIA) 10 mg tablet Take 10 mg by mouth once daily. 07/05/2020 Active Comment on above: Take 10 mg by mouth once daily. fish oil concentrate (Thomson-3) 300 MG capsule (2 sources) fish oil concentrate (Thomson-3) 300 MG capsule Take 550 mg by mouth Daily Active 30 actuat fluticasone furoate 0.1 mg/actuat / vilanterol 0.025 mg/actuat dry powder inhaler (13 sources) Corticosteroid, beta2-Adrenergic Agonist Start: 09-07-2020 BREO ELLIPTA 100-25 mcg/dose inhaler 09/07/2020 Active Start: 12-23-2017 Fluticasone Fu roate-Vilanterol (Breo Ellipta) 100-25 mcg/dose Blister With Device Active 1 INH INHALATION Q24H December 23, 2017 12:00am Fluticasone Furo ate-Vilanterol (Breo Ellipta) 100-25 MCG/ACT aerosol powder Inhale Active folic acid 0.4 mg / vitamin b12 1 mg sublingual tablet (4 sources) Vitamin B12 cyanocobalamin/f olic acid (VITAMIN R85-JWWCC ACID) 1,000-[address] by sublingual route. Active gabapentin 100 mg oral capsule (11 sources) Anti-epileptic Agent Start: 021 take 1 capsule by mouth once daily as needed gabapentin (NEURONTIN) 100 mg capsule Take 1 capsule by mouth once daily as needed (for sciatica) for up to 180 days. 11/12/2020 Active Comment on above: Take 1 capsule by [facility] once daily as needed (for sciatica) for up to 180 days. gemfibrozil 600 mg oral tablet (13 sources) Peroxisome Proliferator Receptor alpha Agonist Start: 018 take 1 tablet by mouth twice daily Gemfibrozil 600 mg Tablet Active 600 MG PO Twice daily December 23, 2017 12:00am Start: 09-03-2010 take 1 tablet by ashok once daily gemfibrozil (LOPID) 600 mg ORAL [...] 2017 12:00am mecobalamin 1 mg chewable tablet (10 sources) Start: 5 mecobalamin, vitamin B12, 1,000 mcg chew 11/07/2014 Active Multiple Vitamin (multivitamin) tablet (2 sources) take 1 tablet by mouth once daily Multiple Vitamin (multivitamin) tablet Take 1 tablet by mouth Daily Active multivit,iron,minera ls/lutein (CENTRUM SILVER ULTRA WOMEN'S ORAL) (10 sources) Start: 0 multivit,iron,lens examiner als/lutein (CENTRUM SILVER ULTRA WOMEN'S ORAL) 11/07/1999 Active Start: 11-07-1999 multivit,iron, minerals/lutein (CENTRUM SILVER ULTRA WOMEN'S ORAL) Multivitamin Tablet (1 source) Start: 12-23-2017 take 1 tablet by mouth once daily Multivitamin Tablet Active 1 TAB PO Daily December 23, 2017 12:00am Thomson 4-Ojl-Qvv-Fish Oil (Fish Oil) 1,000 mg (120 mg-180 mg) Capsule (1 source) Start: 12-23-2017 Thomson 3-Dha-Ep a-Fish Oil (Fish Oil) 1,000 mg (120 mg-180 mg) Capsule Active 500 MG PO Daily December 23, 2017 12:00am omega 1-xue-lxt-fish oil (FISH OIL) 100-160-1,000 mg cap (10 sources) omega 3-dha-epa- fish oil (FISH OIL) 100-160-1,000 mg cap Fish Oil Active omega 3-dha-epa- fish oil (FISH OIL) 100-160-1,000 mg cap Fish Oil 0 Active Comment on above: Fish Oil pantoprazole 40 mg delayed release oral tablet (13 sources) Proton Pump Inhibitor Start: 0 take 1 tablet by mouth once daily pantoprazole (PROTONIX) 40 mg ORAL tablet Take one(1) tablet daily. 0 09/03/2010 Active Comment on above: Take one(1) tablet d aily. phenylephrine hydrochloride 25 mg/ml ophthalmic solution (3 sources) alpha-1 Adrenergic Agonist Start: 5 End: 5 PHENYLephrine 2.5 % 1 drop (AK-DILATE, HENNA-SYNEPHRINE) Start: 03-05-2024 End: 03-06-2024 PHENYLephrine 2.5 % 1 Drop ( AK-DILATE, HENNA-SYNEPHRINE) Start: 02-28-2023 End: 03-01-2023 PHENYLephrine 2.5 % 1 Drop ( AK-DILATE, HENNA-SYNEPHRINE) polyethylene glycol 3350 54475 mg powder for oral solution (2 sources) Osmotic Laxative polyethylene gl ycol, PEG, 3350 (Miralax) 17 g packet Take by mouth Active simethicone 125 mg oral capsule (12 sources) Start: 11-07-2014 Simethicone 125 mg cap 11/07/2014 Active simethicone (Myl icon) 125 MG chewable tablet 1 (one) time each day at the same time Active tropicamide 10 mg/ml ophthalmic solution (3 sources) Anticholinergic Start: 03-06-2025 End: 03-07-2025 tropicamide 1 % 1 drop (MYDRIACYL) Start: 03-05-2024 End: 03-06-2024 tropicamide 1 % 1 Drop (MYDR IACYL) Start: 02-28-2023 End: 03-01-2023 tropicamide 1 % 1 Drop (MYDR IACYL) vitamin b12 1 mg oral tablet (3 sources) Vitamin B12 Start: 12-23-2017 take 1 tablet by mouth once daily in the evening Cyanocobalamin (Vitamin B-12) (Vitamin B-12) 1,000 mcg Tablet Active 1000 MCG PO Every evening December 23, 2017 12:00am vitamin e 90 mg oral capsule (13 sources) Start: 12-23-2017 take 1 capsule by mouth once daily at bedtime Vitamin E 200 unit Capsule Active 200 UNIT PO Daily at bedtime December 23, 2017 12:00am Start: 11-07-1989 vitamin E mixe d 400 unit cap 11/07/1989 Active take [address] [facility] once daily vitamin E 180 MG (400 UNIT) capsule Take 180 mg by mouth Daily Active Completed/Discontinued Medications Medication Drug Class(es) Dates Sig (Normalized) Sig (Original) ketorolac tromethamine 5 mg/ml ophthalmic solution (2 sources) Nonsteroidal Anti-inflammatory Drug, Cyclooxygenase Inhibitor Start: 11-19-2020 End: 04-24-2023 keTORolac (ACULAR) 0.5 % ophthalmic solution USE [...] as needed. for pain. Take with food. prednisoLONE acetate 10 mg/ml ophthalmic suspension (2 sources) Corticosteroid Start: 11-19-2020 End: 02-28-2023 prednisoLONE acetate (PRED FORTE, ECONOPRED PLUS) 1 % ophthalmic suspension USE DIRECTED BY PHYSICIAN, IN OPERATIVE EYE, BEGINNING ONE DAY AFTER SURGERY 1 Bottle 0 12/03/2020 02/28/2023 Discontinued (Course of therapy completed) Comment on above: USE DIRECTED BY Brandie LAKE, IN OPERATIVE EYE, BEGINNING ONE DAY AFTER SURGERY Problems Active Problems Problem Classification Problem Date Documented Date Episodic/Chronic Cataract (4 sources) Bilateral pseudophakia; Translations: [Presence of intraocular lens] Onset: 5 Chronic Chronic obstructive pulmonary disease and bronchiectasis (13 sources) Chronic obstructive pulmonary disease, unspecified; Translations: [Chronic obstructive lung disease] Onset: 2 11-12-2020 Chronic Disorders of lipid metabolism (14 sources) Pure hypercholesterolemia, unspecified; Translations: [Hyperlipidemia, unspecified] Onset: 2 11-12-2020 Chronic Esophageal disorders (12 sources) Gastroesophageal reflux disease; Translations: [Gastro-esophageal reflux disease without esophagitis] Onset: 4 11-12-2020 Chronic Inflammation; infection of eye (except that caused by tuberculosis or sexually transmitteddisease) (5 sources) Keratoconjunctivitis sicca; Translations: [Keratoconjunctivitis sicca, not specified as Sjogren's, bilateral] Onset: 5 Chronic Joint disorders and dislocations; trauma-related (2 [...] right foot] 10-02-2024 Episodic Other eye disorders (3 sources) Bilateral vitreous degeneration of eyes; Translations: [Vitreous degeneration, bilateral] Chronic Other eye disorders (1 source) Bilateral vitreous floaters; Translations: [Other vitreous opacities, bilateral] Chronic Other eye disorders (1 source) Vitreous degeneration, bilateral; Translations: [Vitreous degeneration, bilateral] Onset: 5 Chronic Other lower respiratory disease (1 source) Other nonspecific abnormal finding of lung field; Translations: [OTH NONSPECIFIC ABN FIND LNG FIELD] Onset: 2 Episodic Other non-traumatic joint disorders (1 source) Pain in right hip joint; Translations: [Pain in right hip] 01-31-2024 Episodic Other non-traumatic joint disorders (1 source) Pain in right shoulder; Translations: [Pain in joint, shoulder region] 02-16-2024 Episodic Other skin disorders (2 sources) Callosity; Translations: [Corns and callosities] 10-02-2024 Episodic Residual codes; unclassified (10 sources) Tobacco user; Translations: [Tobacco use] 11-12-2020 Episodic Residual codes; unclassified (1 source) Pain; Translations: [Pain, unspecified] 01-31-2024 Episodic Retinal detachments; defects; vascular occlusion; and retinopathy (8 sources) Retinal pigment epithelial abnormality; 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 Normal [facility] Comment on above: Performed By: #### G S, AERC #### [address] Gram Stainon 11-06-2024 Microscopic observation Gram stain Nom (Unsp spec) Gram Stain Result 1+ Gram Positive Cocci in Pairs 11/06/2024 1624 PAB PERFORMED BY: [place] [id number] PATHOLOGIST COFFEE TASTER GWEN ABDUL M.D. Normal [facility] Comment on above: Performed By: #### G S, AERC #### [address] Gram stain microscopyOrdered By: Loni Covarrubias on 11-06-2024 Microscopic observation Gram stain Nom (Unsp spec) Gram stain microscopy [facility] CNPLani 04-23-2024 CNPN Telephone (INTMAL) NEVAEH THOMAS ([id number]) 1945 F Date Time Provider Department 04/23/24 MARCY ESTRELLA During your visit today, we recorded the following information about you: Victoria Watson 04/23/2024 11:01 AM Signed April from [facility] is calling Marcy Estrella DO today with concern regarding evaluation that was faxed on February 20. Requested provider's signature to be faxed with it. Please advise. Patient has been identified by name and birthdate. Duration of symptoms: N/A Person calling: April Call patient at: [phone] ext [phone] Was an appointment scheduled: No Closing statement: Results or non-symptom based questions: Thank you for calling [facility], your call will be returned within the next business day. Thank you, Victoria Watson Allergies As of Date: 04/23/2024 Noted Allergy Reaction [id number] REDUCTASE INHIBIT*02/28/2023 16 - Unknown Date Reviewed: 03/27/2024 Reviewed by: Marcy Estrella DO - Fully Assessed Reason for Visit: Orders [681] Prescriptions as of 12/10/2024 - cyanocobalamin/folic acid (VITAMIN W63-TBSQZ ACID) 1,000-[address] by sublingual [...] E mixed 400 unit cap - omega 5-jtr-ijp-fish oil (FISH OIL) 100-160-1,000 mg cap Fish [...] Encounter Status:Closed by VICTORIA WATSON on 12/10/24 [facility] CNOVon 03-27-2024 CNOV Office Visit (LOORRM ) TERESSANEVAEH Cano ([id number]) 1945 F Date Time Provider Department 03/27/24 1:15 PM MARCY ESTRELLA LOORR During your visit today, we recorded the following information about you: Marcy Estrella, 03/27/2024 8:58 PM Signed Nevaeh Thomas is [...] As of Date: 03/27/2024 Noted Allergy Reaction [id number] REDUCTASE INHIBIT*02/28/2023 16 - Unknown Date Reviewed: 03/27/2024 Reviewed by: Marcy Estrella DO - Fully Assessed Reason for Visit: Established Patient [175] Right Hip Pain [1554] Primary Visit Diagnosis: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] Other Visit Diagnosis: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] Prescriptions as of 03/27/2024 - cyanocobalamin/folic acid (VITAMIN M71-WJGWY ACID) 1,000-[address] by sublingual [...] E mixed 400 unit cap - omega 9-xkv-lce-fish oil (FISH OIL) 100-160-1,000 mg cap Fish [...] Encounter Status:Closed by MARCY ESTRELLA on 03/27/24 Normal [facility] XR Shoulder - right 3 Viewso n 02-16-2024 IMPRESSION: MINIMAL DEGENERATIVE CHANGES RIGHT SHOULDER 3D Modeler: TAYA Transcribe Date/Time: Feb 16 2024 2:48P Dictated by : MEHNAZ LOBATO MD This examination was interpreted and the report reviewed and electronically signed by: MEHNAZ LOBATO MD on Feb 16 2024 2:49PM [facility] DIVISION OF RADIOLOGY * * *Final [...] abnormality. - DIVISION OF RADIOLOGY Provider, Otoniel wiggins Warren - 02/16/2024 * * *Final Report* * [...] IMPRESSION IMPRESSION: MINIMAL DEGENERATIVE CHANGES RIGHT SHOULDER 3[facility] Transcribe Date/Time: Feb 16 2024 2:48P Dictated by : MEHNAZ LOBATO MD This examination was interpreted and the report reviewed and electronically signed by: MEHNAZ LOBATO MD on Feb 16 2024 2:49PM EST [facility] Radiology Study observation (narrative) [facility] XR Shoulder - right 3 ViewsO rdered By: Ccf Provider on 02-16-2024 [facility] XR Pelvis and Hip - right AP and Lateral frogon 01-31-2024 IMPRESSION: Right hip grossly unremarkable. 3D Modeler: [facility] Transcribe Date/Time: Jan 31 2024 2:13P Dictated by : PORFIRIO MURPHY MD This examination was interpreted and the report reviewed and electronically signed by: PORFIRIO MURPHY MD on Jan 31 2024 2:14PM [facility] DIVISION OF RADIOLOGY * * *Final [...] the lower abdomen. DIVISION OF RADIOLOGY Provider, Otoniel Giordano - 01/31/2024 * * *Final Report* * [...] abdomen. IMPRESSION IMPRESSION: Right hip grossly unremarkable. 3D Modeler: [facility] Transcribe Date/Time: Jan 31 2024 2:13P Dictated by : PORFIRIO MURPHY MD This examination was interpreted and the report reviewed and electronically signed by: PORFIRIO MURPHY MD on Jan 31 2024 2:14PM EST [facility] Radiology Study observation (narrative) [facility] XR Pelvis and Hip - right AP and Lateral frogOrdered By: Ccf Provider on 01-31-2024 [facility] CALCIUMon 12-07-2022 Calcium [Mass/Vol] 9.4 mg/dL Normal 8.5-10.1 [facility] Comment on above: Performed By: #### LAZARUS LOBO #### [facility] [address] [place] [address] Dr. Lori Bautista CREATININEon 12-07-2022 Creatinine [Mass/Vol] 0.64 mg/dL Normal 0.55-1.02 [facility] Comment on above: Performed By: #### LAZARUS LOBO #### [facility] [address] [place] [address] Dr. Lori Bautista EGFR-AF TURKS AND CAICOS ISLANDER >60 Normal >=60 [facility] Comment on above: Performed By: #### LAZARUS LOBO #### [facility] [address] [place] [address] Dr. Lori Bautista EGFR-NON AF TURKS AND CAICOS ISLANDER >60 Normal >=60 [facility] Comment on above: Performed By: #### LAZARUS LOBO #### [facility] [address] [place] [address] LUNG CANCER SCREENINGon 11-10-2021 CT LUNG CANCER SCREENING EXAMINATION: CT [...] VERONICA DUNCAN Date: 2022-09-10 14:57 Normal [facility] INSULINon 08-28-2022 Insulin 4.3 uIU/mL Normal 2.6-24.9 [facility] Comment on above: Performed By: #### I NSULIN #### [facility] [address] [place] [id number] [address] Lori Bautista CBC AUTO DIFFon 08-27-2022 BASO # 0.1 103/ul Normal 0.0-0.1 [facility] Comment on above: Performed By: #### C BC #### [facility] [address] [place] [address] Dr. Lori Bautista Basophils/100 WBC (Bld) 0.6 % Normal 0.2-2.0 [facility] Comment on above: Performed By: #### C BC #### [facility] [address] [place] [address] Dr. Lori Bautista EO # 0.1 103/ul Normal 0.0-0.7 [facility] Comment on above: Performed By: #### C BC #### [facility] [address] [place] [address] Dr. Lori Bautista Eosinophils/100 WBC (Bld) 0.6 % Critically low 0.9-7.0 [facility] Comment on above: Performed By: #### C BC #### [facility] [address] [place] [address] Dr. Lori Bautista Erythrocyte distribution width (RBC) [Ratio] 13.2 % Normal 11.0-15.0 [facility] Comment on above: Performed By: #### C BC #### [facility] [address] [place] [address] Dr. Lori Bautista Hematocrit (Bld) [Volume fraction] 41.3 % Normal 36.0-48.0 [facility] Comment on above: Performed By: #### C BC #### [facility] [address] [place] [address] Dr. Lori Bautista Hemoglobin (Bld) [Mass/Vol] 13.5 g/dL Normal 12.0-16.0 [facility] Comment on above: Performed By: #### C BC #### [facility] [address] [place] [address] Dr. Lori Bautista IG # 0.02 10e3/ul Normal 0.00-0.03 [facility] Comment on above: Performed By: #### C BC #### [facility] [address] [place] [address] Dr. Lori Bautista IG % 0.3 % Normal 0.0-0.5 [facility] Comment on above: Performed By: #### C BC #### [facility] [address] [place] [address] Dr. Lori Bautista LYMPH # 2.0 103/ul Normal 1.2-3.8 [facility] Comment on above: Performed By: #### C BC #### [facility] [address] [place] [address] Dr. Lori Bautista Lymphocytes/100 WBC (Bld) 25.6 % Normal 20.5-60.0 [facility] Comment on above: Performed By: #### C BC #### [facility] [address] [place] [address] Dr. Lori Bautista MANUAL DIFF REQ NO Normal [facility] Comment on above: Performed By: #### C BC #### [facility] [address] [place] [address] Dr. Lori Bautista MCH (RBC) [Entitic mass] 31.1 pg Normal 26.7-34.0 [facility] Comment on above: Performed By: #### C BC #### [facility] [address] [place] [address] Dr. Lori Bautista MCHC (RBC) [Mass/Vol] 32.7 g/dL Normal 29.9-35.2 [facility] Comment on above: Performed By: #### C BC #### [facility] [address] [place] [address] Dr. Lori Bautista MCV (RBC) [Entitic vol] 95.2 fL Normal 81.0-99.0 [facility] Comment on above: Performed By: #### C BC #### [facility] [address] [place] [address] Dr. Lori Bautista MONO # 0.7 103/ul Normal 0.3-0.8 [facility] Comment on above: Performed By: #### C BC #### [facility] [address] [place] [address] Dr. Lori Bautista Monocytes/100 WBC (Bld) 8.4 % Normal 1.7-12.0 [facility] Comment on above: Performed By: #### C BC #### [facility] [address] [place] [address] Dr. Lori Bautista NEUT # 5.0 103/ul Normal 1.4-6.5 [facility] Comment on above: Performed By: #### C BC #### [facility] [address] [address] [address] Lori Bautista Neutrophils/100 WBC (Bld) 64.5 % Normal 43.0-75.0 [facility] Comment on above: Performed By: #### C BC #### [facility] [address] [address] [address] Lori Bautista Platelet mean volume (Bld) [Entitic vol] 9.9 fL Normal 9.5-13.5 [facility] Comment on above: Performed By: #### C BC #### [facility] [address] [place] [address] Dr. Lori Bautista PLT 310 103/ul Normal 150-450 [facility] Comment on above: Performed By: #### C BC #### [facility] [address] [place] [address] Dr. Lori Bautista RBC 4.34 106/ul Normal 4.20-5.40 [facility] Comment on above: Performed By: #### C BC #### [facility] [address] [place] [address] Dr. Lori Bautista WBC 7.8 103/ul Normal 4.0-11.0 [facility] Comment on above: Performed By: #### C BC #### [facility] [address] [place] [address] Dr. Lori Bautista FREE THYROXINE INDEX T7on FTI 2.26 Normal 1.30-4.50 [facility] Comment on above: Performed By: #### L IPID, TSH, T7, CMP ####[facility] [address] [address]Dr. Lori Bautista T3U 31.0 % Normal 30.0-39.0 [facility] Comment on above: Performed By: #### L IPID, TSH, T7, CMP ####[facility] [address] [id number]. Lori Bautista T4 [Mass/Vol] 7.30 ug/dL Normal 4.80-13.90 [facility] Comment on above: Performed By: #### L IPID, TSH, T7, CMP ####[facility] [address] [id number] Bautista GLYCOHEMOGLOBIN A1Con 2021 ADA RECOMMENDATION SEE BELOW Normal [facility] Comment on above: Result Comment: ADA RECOMMENDED LIMIT 4.0 - 6.0 ADA THERAPEUTIC TARGET < 7.0 ACTION SUGGESTED > 7.0 Performed By: #### A 1C #### [facility] [address] [address] [address] Lori Bautista Glucose [Mass/Vol] 117 mg/dL Normal [facility] Comment on above: Performed By: #### A 1C #### [facility] [address] [address] [address] Lori Bautista HbA1c (Bld) [Mass fraction] 5.7 % Normal 4.5-6.2 [facility] Comment on above: Performed By: #### A 1C #### [facility] [address] [address] [address] Lori Bautista IRONon 08-27-2022 Iron [Mass/Vol] 105.0 ug/dL Normal 50.0-170.0 [facility] Comment on above: Performed By: #### I SAROJ VITAD ####[facility] [address] [place] [id number] Bautista LIPID PROFILEon 08-27-2022 CHOL-HDL RATIO NORM SEE BELOW Normal [facility] Comment on above: Result Comment: 3.3 - 4.4 LOW RISK 4.4 - 7.1 AVERAGE RISK 7.1 - 11.0 MODERATE RISK >11.0 HIGH RISK Performed By: #### L IPID, TSH, T7, CMP ####[facility] [address] [id number] Bautista Cholesterol [Mass/Vol] 186 mg/dL Normal <=200 [facility] Comment on above: Performed By: #### L IPID, TSH, T7, CMP ####[facility] [address] [phone]. Lori Bautista Cholesterol in HDL [Mass/Vol] 55 mg/dL Normal 40-60 [facility] Comment on above: Performed By: #### L IPID, TSH, T7, CMP ####[facility] [address] [place], [place] [address]Jq. Lori Bautista Cholesterol in LDL [Mass/Vol] 116.4 mg/dL Normal [facility] Comment on above: Performed By: #### L IPID, TSH, T7, CMP ####[facility] [address] [id number]. Lori Bautista Cholesterol.total/Chol esterol in HDL [Mass ratio] 3.4 {ratio} Normal [facility] Comment on above: Performed By: #### L IPID, TSH, T7, CMP ####[facility] [address] [id number]. Lori Bautista HDL NORMAL > or = 60 mg/dl - LO W CARDIOVASCULAR RISK <40 mg/dl - HIGH CARDIOVASCULAR RISK Normal [facility] Comment on above: Performed By: #### L IPID, TSH, T7, CMP ####[facility] [address] [place] [phone]. Lori Bautista LDL CALC NORMAL SEE BELOW Normal [facility] Comment on above: Result Comment: <100 mg/dl OPTIMAL 100 - 129 mg/dl NEAR OR ABOVE OPTIMAL 130 - 159 mg/dl BORDERLINE HIGH 160 - 189 mg/dl HIGH >190 mg/dl VERY HIGH Performed By: #### L IPID, TSH, T7, CMP ####[facility] [address] [place] [id number]. Lori Bautista Triglyceride [Mass/Vol] 73 mg/dL Normal <=150 [facility] Comment on above: Performed By: #### L IPID, TSH, T7, CMP ####[facility] [address] [place] [phone]. Lori Bautista VLDL CALC 14.6 mg/dL Normal [facility] Comment on above: Performed By: #### L IPID, TSH, T7, CMP ####[facility] [address] [place], [place] [address]Dr. Lori Bautista PROF 14(COMP METB)on 022 Albumin [Mass/Vol] 3.9 g/dL Normal 3.4-5.0 [facility] Comment on above: Performed By: #### L IPID, TSH, T7, CMP ####[facility] [address] [place] [address]Dr. Lori Bautista Albumin/Globulin [Mass ratio] 1.2 {ratio} Normal [facility] Comment on above: Performed By: #### L IPID, TSH, T7, CMP ####[facility] [address] [place], [place] [address]Dr. Lori Bautista ALP [Catalytic activity/Vol] 68 U/L Normal 46-116 [facility] Comment on above: Performed By: #### L IPID, TSH, T7, CMP ####[facility] [address] [place], [place] [address]Dr. Lori Bautista ALT [Catalytic activity/Vol] 20 U/L Normal 14-59 [facility] Comment on above: Performed By: #### L IPID, TSH, T7, CMP ####[facility] [address] [place], [place] [address]Dr. Lori Bautista Anion gap [Moles/Vol] 8.2 mmol/L Normal [facility] Comment on above: Performed By: #### L IPID, TSH, T7, CMP ####[facility] [address] [place], [place] [address]Dr. Lori Bautista AST [Catalytic activity/Vol] 22 U/L Normal 15-37 [facility] Comment on above: Performed By: #### L IPID, TSH, T7, CMP ####[facility] [address] [place], [place] [address]Dr. Lori Bautista Bilirubin [Mass/Vol] 0.3 mg/dL Normal 0.2-1.0 [facility] Comment on above: Performed By: #### L IPID, TSH, T7, CMP ####[facility] [address] [place], [place] [address]Dr. Lori Bautista Calcium [Mass/Vol] 9.2 mg/dL Normal 8.5-10.1 [facility] Comment on above: Performed By: #### L IPID, TSH, T7, CMP ####[facility] [address] [address]Dr. Lori Bautista Chloride [Moles/Vol] 105 mmol/L Normal 98-107 [facility] Comment on above: Performed By: #### L IPID, TSH, T7, CMP ####[facility] [address] [place], [place] [address]Dr. Lori Bautista CO2 [Moles/Vol] 30.0 mmol/L Normal 21.0-32.0 [facility] Comment on above: Performed By: #### L IPID, TSH, T7, CMP ####[facility] [address] [place], [place] [address]Dr. Lori Bautista Creatinine [Mass/Vol] 0.67 mg/dL Normal 0.55-1.02 [facility] Comment on above: Performed By: #### L IPID, TSH, T7, CMP ####[facility] [address] [place], [place] [address]Dr. Lori Bautista EGFR-AF TURKS AND CAICOS ISLANDER >60 Normal >=60 [facility] Comment on above: Performed By: #### L IPID, TSH, T7, CMP ####[facility] [address] [place], [place] [address]Dr. Lori Bautista EGFR-NON AF TURKS AND CAICOS ISLANDER >60 Normal >=60 [facility] Comment on above: Performed By: #### L IPID, TSH, T7, CMP ####[facility] [address] [address]Dr. Lori Bautista Globulin (S) [Mass/Vol] 3.3 g/dL Normal [facility] Comment on above: Performed By: #### L IPID, TSH, T7, CMP ####[facility] [address] [address]Dr. Lori Bautista Glucose [Mass/Vol] 84 mg/dL Normal 74-106 [facility] Comment on above: Performed By: #### L IPID, TSH, T7, CMP ####[facility] [address] [address]Dr. Lori Bautista Potassium [Moles/Vol] 4.2 mmol/L Normal 3.5-5.1 [facility] Comment on above: Performed By: #### L IPID, TSH, T7, CMP ####[facility] [address] [address]Dr. Lori Bautista Protein [Mass/Vol] 7.2 g/dL Normal 6.4-8.2 [facility] Comment on above: Performed By: #### L IPID, TSH, T7, CMP ####[facility] [address] [place], [place] [address]Dr. Lori Bautista Sodium [Moles/Vol] 139 mmol/L Normal 136-145 [facility] Comment on above: Performed By: #### L IPID, TSH, T7, CMP ####[facility] [address] [place], [place] [address]Dr. Lori Bautista Urea nitrogen [Mass/Vol] 18.0 mg/dL Normal 7.0-18.0 [facility] Comment on above: Performed By: #### L IPID, TSH, T7, CMP ####[facility] [address] [place], [place] [address]Dr. Lori Bautista Urea nitrogen/Creatinine [Mass ratio] 26.9 mg/mg Normal [facility] Comment on above: Performed By: #### L IPID, TSH, T7, CMP ####[facility] [address] [place], [place] [address]Dr. Lori Bautista TSHon 08-27-2022 TSH 1.615 uIU/mL Normal 0.358-3.740 [facility] Comment on above: Performed By: #### L IPID, TSH, T7, CMP ####[facility] [address] [place], [place] [address]Dr. Lori Bautista VITAMIN D 25 OHon 08-27-2022 VIT D 25-OH 73.1 ng/mL Normal [facility] Comment on above: Performed By: #### I SAROJ VITAD ####[facility] [address] [place], [place] [address]Xf. Lori Bautista VIT D RANGES SEE BELOW Normal [facility] Comment on above: Result Comment: <20 ng/mL Vit D deficient 20 - <30 ng/mL Vit D insufficient 30 - 100 ng/mL Vit D sufficient >100 ng/mL Potential Toxicity Performed By: #### I SAROJ VITAD ####[facility] [address] [place], [place] [address]Cn. Lori Bautista MG MAMM SCREEN 3D APPLE CADon 08-04-2022 MG MAMM SCREEN 3D APPLE CAD Patient: NEVAEH THOMAS Exam Date: 08/04/2022 : 1945 Gender:F Ordering : DR CATALINA CERVANTES Admission #: [id number] Family : Order #: [id number] CLICK HERE TO VIEW EXAM RADIOLOGY REPORT [...] lung cancer at age 84. LOCATION: [facility] BREAST COMPOSITION: Heterogeneously dense,which may obscure [...] MD on 08/04/2022 at 13:25 Normal [facility] Covid-19 PCR (CVDTB)on SARS-CoV-2 (COVID-19) RNA PABLO+probe Ql (Unsp spec) Not detected Normal NOT DETECTED [facility] Comment on above: Result Comment: This test is not yet approved or cleared by the [place] FDA. When there are no FDA-approved or cleared tests available, and other criteria are met, FDA can make tests available under an emergency access mechanism called an Emergency Use Authorization (EUA). The EUA for this test is supported by the [place] of Health and Human Service's (HHS's) declaration [...] SARS-CoV-2. Performed By: #### C VDTB #### [facility] [address] [place] [address] Dr. Lori Bautista SYMPTOMATIC COVID-19 ANTIGEN on 05-12-2022 EUA Statement SEE BELOW Normal [facility] Comment [...] sooner. Performed By: #### C VDAGS #### [facility] [address] [place] [address] Dr. Lori Bautista SARS-CoV-2 (COVID-19) RNA PABLO+probe Ql (Unsp spec) Negative Normal NEGATIVE [facility] Comment on above: Performed By: #### C VDAGS #### [facility] [address] [place], [place] [address] Dr. Lori Bautista CALCIUMon 05-04-2022 Calcium [Mass/Vol] 9.6 mg/dL Normal 8.5-10.1 [facility] Comment on above: Performed By: #### LAZARUS LOBO ####[facility] [address] [place] [id number]. Lori Bautista CREATININEon 05-04-2022 Creatinine [Mass/Vol] 0.68 mg/dL Normal 0.55-1.02 [facility] Comment on above: Performed By: #### LAZARUS LOBO ####[facility] [address] [place] [address]Dr. Lori Bautista EGFR-AF TURKS AND CAICOS ISLANDER Normal >=60 [facility] Comment on above: Performed By: #### LAZARUS LOBO ####[facility] [address] [place] [id number]. Lori Bautista EGFR-NON AF TURKS AND CAICOS ISLANDER Normal >=60 [facility] Comment on above: Performed By: #### LAZARUS LOBO ####[facility] [address] [place] [address]Dr. Lori Bautista XR DEXA BONE DENSITYon 03-29 [...] by: ABBE WEBSTER Date: 2022-03-29 12:43 Normal [facility] XR KUB 1 VIEWon 12-18-2021 XR KUB [...] by: ABBE WEBSTER Date: 2021-12-18 15:43 Normal [facility] Encounters Encounter Date Encounter Type Care Provider Facility Start: 03-06-2025 End: 03-06-2025 Patient encounter procedure Catalino London OD Work Phone: Ophthalmology Comment on above: Retinal pigment epit helial mottling of macula (Primary Dx); Drusen of macula; Keratoconjunctivitis sicca of both eyes not specified as Sjogren's; Vitreous degeneration, bilateral; Pseudophakia of both eyes Start: 03-06-2025 End: 03-06-2025 ambulatory CATALINO LONDON Facility:[facility] Start: 11-06-2024 End: 11-06-2024 ambulatory Loni Covarrubias [facility] Work Phone: Start: 11-06-2024 End: 11-06-2024 Departed Referred Loni Covarrubias MD Work Phone: [facility] Start: 10-02-2024 End: 10-02-2024 Office outpatient new 30 minutes Dariusz Rich DPM Work Phone: [facility] Comment on above: Pain of right foot ( Primary Dx); Plantar keratosis; Right foot pain; Corns and callosities Start: 10-02-2024 End: 10-02-2024 ambulatory DARIUSZ RICH Not Available Start: 04-23-2024 End: 12-10-2024 Telephone encounter Marcy Estrella DO Work Phone: Internal Medicine Comment on above: Orders Start: 03-27-2024 End: 03-27-2024 ambulatory MARCY D ESTRELLA Facility:[facility] Start: 03-27-2024 End: 03-27-2024 Patient encounter procedure Marcy Elyse Estrella DO Work Phone: Orthopaedics Comment on above: Tendinopathy of righ t rotator cuff (Primary Dx); Degenerative tear of acetabular labrum Start: 03-05-2024 End: 03-05-2024 Patient encounter procedure Catalino London OD Work Phone: Ophthalmology Comment on above: Keratoconjunctivitis sicca of both eyes not specified as Sjogren's (Primary Dx); Retinal pigment epithelial mottling of macula; Drusen of right macula; Vitreous degeneration, bilateral; Pseudophakia of both eyes Start: 02-16-2024 ambulatory Cynthia delgadillo RT(R) Radiology Comment on above: Radiology XR Start: 02-16-2024 End: 02-16-2024 Patient encounter procedure Cynthia Donato RT(R) [facility] Comment on above: Tendinopathy of righ t rotator cuff (Primary Dx); Impingement syndrome of right shoulder Start: 02-16-2024 End: 02-16-2024 Subsequent hospital visit by physician Bryson Arana 1 Work Phone: Radiology Comment on above: Acute pain of right shoulder [M25.511] Start: 01-31-2024 End: 01-31-2024 Patient encounter procedure Marcy Elyse Estrella DO Work Phone: Orthopaedics Comment on above: Degenerative tear of acetabular labrum (Primary Dx); Pain in right hip; Primary osteoarthritis of right hip Start: 01-31-2024 End: 01-31-2024 Subsequent hospital visit by physician Bryson Arana 1 Work Phone: Radiology Comment on above: Pain [R52] Start: 02-28-2023 End: 02-28-2023 Patient encounter procedure Catalino Guptager OD Work Phone: Ophthalmology Comment on above: [...] Date Procedure Procedure Detail Performing Clinician Start: 03-06-2025 Computerized ophthal mehdi imaging retina Catalino Brownsairavidhya OD Work Phone: Start: 11-06-2024 Gram stain microscopy Elyse Covarrubias MD Work Phone: Start: 02-16-2024 Radex shoulder compl ete minimum 2 views Marcy Estrella DO Work Phone: Start: 01-31-2024 Radex hip unilateral with pelvis 2-3 views Marcy Estrella DO Work Phone: Plan of Treatment Date Care Activity Detail Author Start: 02-24-2027 OCT MACULA CIRRUS OU (BOTH EYES) OCT MACULA CIRRUS OU (BOTH EYES) [facility] Imaging Routine Retinal pigment epithelial mottling of macula Drusen of macula Expected: 02/24/2027 [facility] Work Phone: Comment on above: Expected: 02/24/2027 Start: 08-01-2026 Urine microalbumin profile DTaP,Tdap,Td Vaccine (3 - Td or Tdap) [facility] Start: 02-23-2026 OCT MACULA CIRRUS OU (BOTH EYES) OCT MACULA CIRRUS OU (BOTH EYES) [facility] Imaging Routine 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 Expected: 02/23/2026 [facility] Work Phone: Comment on above: Expected: 02/23/2026 Start: 03-06-2025 End: 03-06-2025 Patient encounter procedure 03/06/2025 1:30 PM EDT Office Visit [facility] Ophthalmology [address] [place], [place] [id number] Catalino London S, OD [address] [place] [address] Annual Eye exam Ophthalmology Comment on above: Annual Eye exam Start: 02-17-2025 OCT MACULA CIRRUS OU (BOTH EYES) OCT MACULA CIRRUS OU (BOTH EYES) [facility] Imaging Routine 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 Expected: 02/17/2025 [facility] Work Phone: Comment on above: Expected: 02/17/2025 Start: 11-07-2024 Advance Directive Discussion Advance Directive Discussion [facility] Start: 11-06-2024 Aerobic Culture Aerobic Culture [facility] Start: 11-06-2024 Microbial culture of sputum [facility] Start: 07-08-2024 Covid-19 Vaccine ( season) Covid-19 Vaccine ( season) [facility] Start: 07-08-2024 Covid-19 Vaccine ( season) Covid-19 Vaccine ( season) [facility] Start: 07-08-2024 Influenza vaccination [facility] Start: 05-27-2024 Diabetes Screening Diabetes Screenin g [facility] Start: 03-27-2024 End: 03-27-2024 Patient encounter procedure 03/27/2024 1:15 PM EDT Office Visit Orthopaedics [address] [place] [address] Marcy Estrella, DO [address] [place] [address] 8 week right hip pain Orthopaedics Comment on above: 8 week right hip dave n Start: 11-07-2023 Advance Directive Discussion Advance Directive Discussion [facility] Start: 11-07-2023 Behavioral Health Screening Behavioral Health Screening [facility] Start: 11-07-2023 Depression Assessment Depression Ass essment [facility] Start: 07-08-2023 Covid-19 Vaccine () Covid-19 Vaccine () [facility] Start: 07-08-2023 Influenza vaccination Influenza Vacc ine (#1) [facility] Start: 11-07-2022 ADVANCE DIRECTIVE DISCUSSION ADVANCE DIRECTIVE DISCUSSION [facility] Start: 11-07-2022 DEPRESSION ASSESSMENT DEPRESSION ASS ESSMENT [facility] Start: 05-03-2022 COVID-19 VACCINE (4 - Booster for Pfizer series) COVID-19 VACCINE (4 - Booster for Pfizer series) [facility] Start: 2022 RSV Vaccine (1 - 1-dose 75+ series) RSV Vaccine (1 - 1-dose 75+ series) [facility] Start: 02-11-2012 BONE DENSITY BONE DENSITY [facility] Start: 02-11-2012 Screening for osteoporosis Bone Density Screening [facility] Start: 2007 RSV Vaccine (1 - 1-dose 60+ series) RSV Vaccine (1 - 1-dose 60+ series) [facility] Start: 1997 Influenza vaccination LUNG CANCER SC REENING [facility] Start: 1997 Screening for malignant neoplasm of lung Lung Cancer Screening [facility] Start: 1997 SHINGRIX VACCINE (1 of 2) SHINGRIX VACCINE (1 of 2) [facility] Start: 02-11-1992 DIABETES SCREEN DIABETES SCREEN [facility] Start: 1966 Urine microalbumin profile DTAP,TDAP,TD (1 - Tdap) [facility] Start: 1965 ANNUAL PCP TEAM CHRONIC DISEASE VISIT ANNUAL PCP TEAM CHRONIC DISEASE VISIT [facility] Start: 1965 Anxiety Screening Anxiety Screening [facility] Start: 1965 Depression Screening Depression Scre ening [facility] Start: 1965 HEPATITIS C SCREENING HEPATITIS C [facility] Start: 1965 Hepatitis C screening Hepatitis C [facility] Start: 1965 SPIROMETRY SPIROMETRY [facility] Start: 1953 PNEUMOCOCCAL: 65+ (1 - PCV) PNEUMOCOCCAL: 65+ (1 - PCV) [facility] OCT MACULA CIRRUS OU (BOTH EYES) OCT MACULA CIRRUS OU (BOTH EYES) [facility] Imaging Routine 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 02/28/2023 5:04 PM EDT [facility] Work Phone: [facility] Immunizations Immunization Date Immunization Notes Care Provider Lulu diaz 08-07-2022 influenza virus vacc ine, unspecified formulation Marcy Estrella DO Work Phone: [facility] Payers Date Payer Category Payer Self-pay 2020 Medicare (Managed Care) 1.2. [id number] 2020 Unknown [id number] 1959 Unknown [id number] 1945 Unknown [id number] 1945 Unknown [id number] 1945 Unknown [id number] 1945 Unknown [id number] 1945 Unknown [id number] 1945 Unknown [id number] 1945 Unknown [id number] 1945 Unknown [id number] 1945 Unknown [id number] Medicare [id number] Private Health Insurance [id number] Unknown [place] BC/BS [id number] Unknown [place] [facility] PFFS [id number] Unknown [id number] Social History Date Type Detail Facility Start: 11-12-2020 End: 10-02-2024 Tobacco smoking status NHIS Smokes tobacco daily [facility] Work Phone: History of tobacco use Cigarette Smoker [facility] Work Phone: Start: 11-12-2020 End: 01-31-2024 Cigarettes smoked current (pack per day) - Reported 1 [facility] Start: 11-12-2020 End: 10-02-2024 Tobacco use and exposure Smokeless tobacco non-user [facility] Work Phone: Start: 02-28-2023 End: 03-06-2025 Alcohol intake Lifetime non-drinker (finding) [facility] Start: 09-09-2020 History SDOH Alcohol Frequency 1 [facility] Start: 1945 Sex Assigned At Female [facility] Start: 09-09-2020 End: 01-31-2024 Alcohol Use Disorder Identification Test - Consumption [AUDIT-C] [facility] How often to you hav e a drink containing alcohol? Never [facility] Average Number of Drinks Not on file [facility] Start: 09-08-2020 Gender identity Identifies as female gender (finding) [facility] Start: 09-08-2020 Sexual orientation Heterosexual (finding) [facility] Start: 10-02-2024 Alcoholic beverage intake Ex-drinker (finding) [facility] Tobacco smoking stat us MSIS Unknown if ever smoked [facility] Work Phone: Start: 11-07-2024 Sex Female (finding) [facility] Medical Equipment Procedure Code Equipment Code Equipment Origin al Text Equipment Identifier Dates Lens Iol 0d +15 Derik Uv Abs - [id number] Start: 11-19-2020 Comment on above: Description: -0.26 Lens Iol 0d +15 Derik Uv Abs - [id number] Start: 12-03-2020 Comment on above: Description: -0.33 Clinical Notes 02-28-2023 to 03-06-2025 Catalino London, LUZ MARINA - 03/06/2025 2:43 PM Yuliya Rich DPM - 10/02/2024 1:30 PM ESTTelephone Encounter - Victoria Watson - 04/23/2024 10:58 AM Marcy Leonardo DO - 03/27/2024 1:06 PM EDT Note Date & Type Note Facility 03-06-2025 Note Date of Procedure 03/06/2025. 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 OCT Macula Interpretation Right Eye Normal foveal contour. Findings include Drusen, RPE Irregularity; Negative for Intraretinal fluid, Subretinal fluid. Left Eye Normal foveal contour. Findings include Drusen, RPE Irregularity; Negative for Intraretinal fluid, Subretinal fluid. Interval Change Right Eye Stable. Left Eye Stable. ZEISS 03-06-2025 Note HNO ID: [id number] Author: CATALINO LONDON OD Service: ? Author Type: MUSEUM GUIDE Type: Progress Notes Filed: 03/06/2025 14:50 Note Text: ASSESSMENT/PLAN: 1. 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 Drusen of macula - ICD9: 362.57, ICD10: H35.369 Borderline for AMD diagnosis RPE changes and small drusen OD > OS and approximately stable x 2 yr interval Pt ed OK for AREDS2 twice a day Monitor vision changes and return to clinic if any 3. Keratoconjunctivitis sicca of both eyes not specified as Sjogren's - ICD9: 370.33, ICD10: H16.223 Improved ocular surface today Continue Artificial Tears 4. Vitreous degeneration, bilateral - ICD9: 379.21, ICD10: H43.813 Not acute Monitor 5. Pseudophakia of both eyes - ICD9: V43.1, ICD10: Z96.1 Pt declines MRx for specs Will continue readers as needed and supplement with magnifiers if needed March 06, 2025 2:43 PM [facility] 03-06-2025 History of Present illness Narrative ASSESSMENT/PLAN: 1. 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 Drusen of macula - ICD9: 362.57, ICD10: H35.369 Borderline for AMD diagnosis RPE changes and small drusen OD > OS and approximately stable x 2 yr interval Pt ed OK for AREDS2 twice a day Monitor vision changes and return to clinic if any 3. Keratoconjunctivitis sicca of both eyes not specified as Sjogren's - ICD9: 370.33, ICD10: H16.223 Improved ocular surface today Continue Artificial Tears 4. Vitreous degeneration, bilateral - ICD9: 379.21, ICD10: H43.813 Not acute Monitor 5. Pseudophakia of both eyes - ICD9: V43.1, ICD10: Z96.1 Pt declines MRx for specs Will continue readers as needed and supplement with magnifiers if needed March 06, 2025 2:43 PM documented in this encounter [facility] 10-02-2024 History of Present illness Narrative Reason [...] has not attempted any treatment. PCP: Dr. Covarrubias Date last seen: Review of Systems General: Chills [...] 6. Reappoint p.r.n. documented in this encounter [facility] 04-23-2024 Telephone encounter Note April from [facility] is calling Marcy Estrella DO today with concern regarding evaluation that was faxed on February 20. Requested provider's signature to be faxed with it. Please advise. Patient has been identified by name and birthdate. Duration of symptoms: N/A Person calling: April Call patient at: [phone] ext [phone] Was an appointment scheduled: No Closing statement: Results or non-symptom based questions: Thank you for calling [facility], your call will be returned within the next business day. Thank you, Victoria Watson [facility] 04-23-2024 Miscellaneous Notes April from [facility] is calling Marcy Estrella DO today with concern regarding evaluation that was faxed on February 20. Requested provider's signature to be faxed with it. Please advise. Patient has been identified by name and birthdate. Duration of symptoms: N/A Person calling: April Call patient at: [phone] ext [phone] Was an appointment scheduled: No Closing statement: Results or non-symptom based questions: Thank you for calling [facility], your call will be returned within the next business day. Thank you, Victoria Watson documented in this encounter [facility] 03-27-2024 Note HNO ID: [id number] Author: MARCY ESTRELLA DO Service: ? Author [...] Follow-up as needed Procedures Marcy Estrella DO [facility] 03-27-2024 History of Present illness Narrative [...] Marcy Estrella DO documented in this encounter [facility] 03-05-2024 History of Present illness Narrative Documentation transcribed from Paper notes from [facility] Downtime ASSESSMENT/PLAN: 1. Keratoconjunctivitis sicca [...] 2024 5:03 PM documented in this encounter [facility] 02-16-2024 History of Present illness Narrative Radiology [...] PATIENT PRESENTS WITH AN IMPLANTABLE OR ATTACHED EQUAL EMPLOYMENT OPPORTUNITY OFFICER: No RADIOLOGY DEPARTMENT: General X-ray: Exam(s) Completed: Upper Extremity X-Ray(s): Shoulder, AP / TRUE AP / AXILLARY right PERIPHERAL IV DATA: Not applicable SIGNED BY: RT Anthony(R) February 16, 2024 1:02 PM documented in this encounter [facility] 02-16-2024 History of Present illness Narrative Nevaeh [...] results and radiologist's interpretation, available in the [facility] health record. Images were reviewed [...] Marcy Estrella DO documented in this encounter [facility] 01-31-2024 History of Present illness Narrative Images [...] results and radiologist's interpretation, available in the [facility] health record. Images were reviewed [...] Marcy Estrella DO documented in this encounter [facility] 02-28-2023 History of Present illness Narrative ASSESSMENT/PLAN: [...] 2023 1:19 PM documented in this encounter [facility] Evaluation note Diagnosis Vitreous degeneration, bilateral- Primary Floaters in visual field, bilateral Keratoconjunctivitis sicca of both eyes not specified as Sjogren's Keratoconjunctivitis sicca, not specified as Sjogren's SPK (superficial punctate keratitis), bilateral Pseudophakia of both eyes Lens replaced by other means Retinal pigment epithelial mottling of macula Other retinal disorders 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 [facility] Diagnosis Degenerative tear of acetabular labrum- Primary Pain in right hip Pain in joint, pelvic region and thigh Primary osteoarthritis of right hip Primary localized osteoarthrosis, pelvic region and thigh [facility] Tendinopathy of right rotator cuff- Primary Impingement syndrome of right shoulder Other affections of shoulder region, not elsewhere classified [facility] Diagnosis Keratoconjunctivitis sicca of both [...] of acetabular labrum [facility] Diagnosis Preop examination- Primary Preoperative examination, unspecified Combined forms of age-related cataract of both eyes Other and combined forms of senile cataract Chronic obstructive pulmonary disease, unspecified COPD type (HCC) Gastroesophageal reflux disease, unspecified whether esophagitis present Hyperlipidemia, unspecified hyperlipidemia type Tobacco abuse Tobacco use disorder Acute pain of right shoulder [facility] Preop examination- Primary Preoperative examination, unspecified Combined forms of age-related cataract of both eyes Other and combined forms of senile cataract Chronic obstructive pulmonary disease, unspecified COPD type (HCC) Gastroesophageal reflux disease, unspecified whether esophagitis present Hyperlipidemia, unspecified hyperlipidemia type Tobacco abuse Tobacco use disorder Pain Generalized pain [facility] Diagnosis Pain of right foot- Primary Plantar keratosis Right foot pain Pain in soft tissues of limb Corns and callosities documented in this encounter [facility] noteNo assessment information availableH[facility] Work Phone: Evaluation note* Diagnosis Preop examination- Primary Preoperative examination, unspecified Combined forms of age-related cataract of both eyes Other and combined forms of senile cataract Chronic obstructive pulmonary disease, unspecified COPD type (HCC) Gastroesophageal reflux disease, unspecified whether esophagitis present Hyperlipidemia, unspecified hyperlipidemia type Tobacco abuse Tobacco use disorder 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 Other retinal disorders Drusen of macula Keratoconjunctivitis sicca of both eyes not specified as Sjogren's Keratoconjunctivitis sicca, not specified as Sjogren's Vitreous degeneration, bilateral Pseudophakia of both eyes Lens replaced by other means documented in this encounter [facility] for referral (narrative)* Diagnostic Procedure Only (Routine) - Closed Specialty Diagnoses / Procedures Referred By Contac t Referred To Contact XR IMAGING Diagnoses Acute pain of right shoulder Procedures XR SHOULDER GENERAL 3V OR MORE AP/TRUE AP/OTHER RIGHT RADEX SHOULDER COMPLETE MINIMUM 2 VIEWS Marcy Estrella, DO [address] [place] [address] [place] [address] Referral ID Status Reason Start Date Expiration Date V isits Requested Visits Authorized [id number] Closed Auto-Generate d Referral 02/07/2024 03/08/2025 1 1 [facility] for referral (narrative)* Diagnostic Procedure Only (Routine) - Closed Specialty Diagnoses / Procedures Referred By Contac t Referred To Contact XR IMAGING Diagnoses Pain Procedures XR HIP GENERAL 3V PELV/AP/LAT RIGHT RADEX HIP UNILATERAL WITH PELVIS 2-3 VIEWS Marcy Estrella, DO [address] [place] [address] [place] [address] Referral ID Status Reason Start Date Expiration Date V isits Requested Visits Authorized [id number] Closed Auto-Generate d Referral 01/24/2024 02/22/2025 1 1 [facility] for visit Narrative* Diagnostic Procedure Only (Routine) - Closed Specialty Diagnoses / Procedures Referred By Contac t Referred To Contact XR IMAGING Diagnoses Acute pain of right shoulder Procedures XR SHOULDER GENERAL 3V OR MORE AP/TRUE AP/OTHER RIGHT RADEX SHOULDER COMPLETE MINIMUM 2 VIEWS Marcy Estrella, DO [address] [place] [address] [place] [address] Referral ID Status Reason Start Date Expiration Date V isits Requested Visits Authorized [id number] Closed Auto-Generate d Referral 02/07/2024 03/08/2025 1 1 [facility] for visit Narrative* Diagnostic Procedure Only (Routine) - Closed Specialty Diagnoses / Procedures Referred By Contac t Referred To Contact XR IMAGING Diagnoses Pain Procedures XR HIP GENERAL 3V PELV/AP/LAT RIGHT RADEX HIP UNILATERAL WITH PELVIS 2-3 VIEWS Marcy Estrella, DO [address] [place] [address] [place] [address] Referral ID Status Reason Start Date Expiration Date V isits Requested Visits Authorized [id number] Closed Auto-Generate d Referral 01/24/2024 02/22/2025 1 1 [facility] Summary Purpose Family History No Family History [...] maxwell Referred To Contact [facility] Diagnoses Pain in right hip Procedures CONSULT TO PHYSICAL THERAPY PHYSICAL THERAPY EVALUATION HIGH COMPLEX 45 MINS Marcy Estrella, DO [address] [place] [address] [facility] [address] [address] Referral ID Status Reason Start Date Expiration Date Visits Requested Visits Authorized [id number] Pending Review Auto-Generat ed Referral 01/31/2024 01/30/2025 1 1 Specialty Diagnoses / Procedures Referred By Milagros maxwell [facility] Diagnoses Tendinopathy of right rotator cuff Impingement syndrome of right shoulder Procedures CONSULT TO PHYSICAL THERAPY PHYSICAL THERAPY EVALUATION HIGH COMPLEX 45 MINS Marcy Estrella, DO [address] [place] [address] [address] Referral ID Status Reason Start Date Expiration Date Visits Requested Visits Authorized [id number] Pending Review Auto-Generat ed Referral 02/16/2024 02/15/2025 1 1 Additional Source Comments INFORMATION SOURCE (unrecogn ized section and content) DATE CREATED AUTHOR 12/07/2022 [facility] DATE CREATED AUTHOR AUTHOR'S ORGANIZ ATION 10/05/2024 [facility] DATE CREATED AUTHOR AUTHOR'S ORGANIZ ATION 11/18/2024 [facility] DATE CREATED AUTHOR AUTHOR'S ORGANIZ ATION 03/11/2025 [facility] Source Comments (unrecognize d section and content) In the event this informatio n is protected by the Federal Confidentiality of Alcohol and Drug Abuse Patient Records regulations: The Federal rules restrict any use of the information to criminally investigate or prosecute any alcohol or drug abuse patient.[facility] the event this information is protected by the Federal Confidentiality of Alcohol and Drug Abuse Patient Records regulations: The Federal rules restrict any use of the information to criminally investigate or prosecute any alcohol or drug abuse patient.[facility] the event this information is protected by the Federal Confidentiality of Alcohol and Drug Abuse Patient Records regulations: The Federal rules restrict any use of the information to criminally investigate or prosecute any alcohol or drug abuse patient.[facility] the event this information is protected by the Federal Confidentiality of Alcohol and Drug Abuse Patient Records regulations: The Federal rules restrict any use of the information to criminally investigate or prosecute any alcohol or drug abuse patient.[facility] the event this information is protected by the Federal Confidentiality of Alcohol and Drug Abuse Patient Records regulations: The Federal rules restrict any use of the information to criminally investigate or prosecute any alcohol or drug abuse patient.[facility] the event this information is protected by the Federal Confidentiality of Alcohol and Drug Abuse Patient Records regulations: The Federal rules restrict any use of the information to criminally investigate or prosecute any alcohol or drug abuse patient.[facility] the event this information is protected by the Federal Confidentiality of Alcohol and Drug Abuse Patient Records regulations: The Federal rules restrict any use of the information to criminally investigate or prosecute any alcohol or drug abuse patient.[facility] the event this information is protected by the Federal Confidentiality of Alcohol and Drug Abuse Patient Records regulations: The Federal rules restrict any use of the information to criminally investigate or prosecute any alcohol or drug abuse patient.[facility] the event this information is protected by the Federal Confidentiality of Alcohol and Drug Abuse Patient Records regulations: The Federal rules restrict any use of the information to criminally investigate or prosecute any alcohol or drug abuse patient.[facility] the event this information is protected by the Federal Confidentiality of Alcohol and Drug Abuse Patient Records regulations: The Federal rules restrict any use of the information to criminally investigate or prosecute any alcohol or drug abuse patient.[facility] Reason for Visit (unrecogniz ed section and content) Reason Comments Yearly Exam Floaters Both Eyes Reason Comments New Right Hip Pain Reason Comments Radiology XR Reason Comments New Pain (Shoulder Pain) Reason Comments Dry Eye(s) Both Eyes Vitreous Degeneration (Pvd) Reason Comments Established Patient Right Hip Pain Reason Comments Orders Reason Comments Pseudophakia Care Teams (unrecognized sec tion and content) Still Photographer Relationship Specialty Start Date End Date Loni Covarrubias MD PCP - General Family Medicine 08/31/10 Still Photographer Relationship Specialty Start Date End Date Loni Covarrubias MD PCP - General Family Medicine 08/31/10 Still Photographer Relationship Specialty Start Date End Date Loni Covarrubias MD PCP - General Family Medicine 08/31/10 Still Photographer Relationship Specialty Start Date End Date Loni Covarrubias MD PCP - General Family Medicine 08/31/10 Still Photographer Relationship Specialty Start Date End Date Loni Covarrubias MD PCP - General Family Medicine 08/31/10 Still Photographer Relationship Specialty Start Date End Date Loni Covarrubias MD PCP - General Family Medicine 08/31/10 Still Photographer Relationship Specialty Start Date End Date Loni Covarrubias MD PCP - General Family Medicine 08/31/10 Still Photographer Relationship Specialty Start Date End Date Loni Covarrubias MD PCP - General Family Medicine 08/31/10 Still Photographer Relationship Specialty Start Date End Date Loni Covarrubias MD [address] [place] [address] PCP - General Family Medicine 10/02/24 Team Status: Inactive Member Role Status Dates Loni Covarrubias MD Attending Provider Active Sta rt: November 06, 2024 End: November 06, 2024 Still Photographer Relationship Specialty Start Date End Date Loni Covarrubias MD PCP - General Family Medicine 08/31/10 Still Photographer Relationship Specialty Start Date End Date Loni [...] BE BASED ON THE PRIMARY CLINICAL RECORDS. [employer] [facility]. provides no warranty or guarantee of the accuracy or completeness of information in this document.
== END 2025-08-15 11:29 | disposition home or self-care (01) ==
LOC: MAMMO 11:28
PROVIDERS: PCP Family Medicine; Visit Provider Family Medicine
DX: Z12.31 Encounter for screening mammogram for malignant neoplasm of breast (principal)
CPT/HCPCS: 77063; 77067

== ENCOUNTER 2025-08-23 12:21 | Outpatient (RCR) | payer MEDICARE, OTHER, SELFPAY ==
[2025-08-23 12:54] LABS: Calcium 8.9 mg/dL (8.5-10.1); Estimated GFR (African America >60 (>=60 mL/min/1.73m^2); Estimated GFR (Non-African Ame >60 (>=60 mL/min/1.73m^2)
[2025-08-23 13:09] VITALS: BP 116/70; PULSE 69; TEMP 36.6; O2SAT 95
[2025-08-23] MEDS: DENOSUMAB 60 MG/ML SYRINGE SUBQ (13:20)
== END 2025-09-09 11:57 | disposition home or self-care (01) ==
LOC: LAB 12:21
PROVIDERS: PCP Family Medicine; Visit Provider Family Medicine
DX: Z51.81 Encounter for therapeutic drug level monitoring (principal); M81.0 Age-related osteoporosis without current pathological fracture
CPT/HCPCS: 36415; 82310; 82565; 96372; J0897

== ENCOUNTER 2025-09-10 12:06 | Outpatient (OUT) | payer MEDICARE, OTHER, SELFPAY ==
--- OUTSIDE RECORDS SUMMARY | 2025-09-02 09:30 | XMS_ITS | Continuity of Care Document ---
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 Mechanic Apprentice Name Role Phone Hilario Rowland MD Attending Provider NON STAFF Primary Care Provider Unavailabl e Care Teams Patient Care Team Team Status: Active Member Role/Relationship Status Dates NON STAFF Primary Care Provider Active Patient Care Team Team Status: Inactive Member Role/Relationship Status Dates Hilario Rowland MD Attending Provider Active S tart: September 02, 2025 End: September 02, 2025NON STAFFPrimary Care ProviderActiveStart: September 02, 2025 End: September 02, 2025 Chief Complaint and Reason for Visit Chief Complaint Admit Date ref by Dileep Covarrubias for venous insufficie nc September 02, 2025 1:52pm Reason for Visit Admit Date Right leg swelling September 02, 2025 1 :52pm Allergies, Adverse Reactions, Alerts Allergen Type Severity Reaction Last Updated Verified Status No Known Allergies Allergy Unknown September 02, 2025 1:52pmYesActive Social History Smoking Status Status Start Date End Date Date of Observa tion Ex-smoker (finding) September 02, 2025 2:00pm Observation Status Observation Response Date of Response Legal Sex Female (finding) Sex Assigned At BirthFemaleApril 1944 Problems Active Problems Problem Diagnosis/Recorded Date Onset Date Stat Right leg swelling September 02, 2025 2:20pm Unknown Active Mixed hyperlipidemia September 02, 2025 1:59pm Unknown Active Nerve pain September 02, 2025 1:59pm Unknown Ac tive Medications Medication Status Dose Units Route Directions Qty Days Refills S tart Date Stop Date End Date Reason(s) Instructions Adherence Gemfibrozil 600 mg Tablet Active 600 MG PO Twice daily December 23, 2017 1:00amhyperlipidemiaComplies with drug therapyPantoprazole 40 mg Tablet,Delayed Release (Dr/Ec)Aiybjv31NHGXQfwjeHxzweqhj 2017 1:00am Complies with drug therapyIbandronate 150 mg QtnxdbYduserkhacwd206HQZBspqig monthbruary 2017 1:00amOctober 2024 1:57pmMultivitamin Tablet Mahign3TYMYGXyglnMplpjtgc 2017 1:00amsupplementComplies with drug therapy Vitamin E 200 unit EjtuisaDgznts637TUATKTRjtwf at bedtimebruary 2017 1:00amsupplementComplies with drug therapyCyanocobalamin (Vitamin B-12) (Vitamin B-12) 1,000 mcg TjchqxPrbpwg5668YBCTGRosrq eveningFebruary 2017 1:00am supplementComplies with drug therapyAspirin 81 mg Tablet,Delayed Release (Dr/Ec) Nwjbaf59LCLMJxtmr at bedVibra [facility] Massachusettsbruary 2017 1:00amComplies with drug therapy Ascorbic Acid (Vitamin C) (Vitamin C) 500 mg CsmrogJoiusj394RWHNPalelYvzttvko 2017 1:00amComplies with drug therapyDocusate Sodium (Stool Softener) 100 mg GavtsemVgdybv663IBYUSncmc at bedtimebruary 2017 1:00amComplies with drug therapyGlucosamine-Chondroitin 500-400 mg FysetzYtjgag6PXAMBYkswoCrrtudiw 2017 1:00amComplies with drug therapyCholecalciferol (Vitamin D3) (Vitamin D3) 1,000 unit GufaikGqubsv2345EFEWSXCryugYtlmvjkg 2017 1:00amsupplement Complies with drug therapyCalcium Carbonate-Vitamin D3 (Calcium 500 With D) 500 mg(1,250mg) -400 unit NmmcvpBsdomi9405SONQNshixOtudufme 2017 1:00am supplementComplies with drug therapyBiotin 2,500 mcg MmdfuedMpsoqz1071DQBCMSwkod December 23, 2017 1:00amComplies with drug therapyOmega 7-Uga-Uhk-Fish Oil (Fish Oil) 1,000 mg (120 mg-180 mg) MbzrpjxCqtqep995ICLZYncyiBbcakdbt 2017 1:00amsupplementComplies with drug therapyFluticasone Furoate-Vilanterol (Breo Ellipta) 100-25 mcg/dose Blister With KabhskQlkzcv5NQNCFPQVZRZDVB79SZssctwas 2017 1:00amcopdComplies with drug therapyEzetimibe 10 mg tabletActiveMGPO September 02, 2025 12:00amComplies with drug therapyPantoprazole 20 mg tablet,delayed release (DR/EC)Orbsvi19SFOAKmdwiCryoawt 2024 12:00am Complies with drug therapyGabapentin (Neurontin) 100 mg eqjluadMaknpr615TNNY DailyTrinity Health [facility] 2024 12:00amComplies with drug therapyDenosumab (Prolia) 60 mg/mL plqryjdOghkbr29ZWLEMNFGQQNXT 6 MONTHSOctbaptist [facility] 2024 12:00amComplies with drug therapy Vital Signs Vital Reading Result Reference Range Collection Date/Time Height 61 [in_i] September 02, 2025 2:40jeWmpjoa37.96 kgOctbaptist health [facility]mond 2024 2:03pmBody Temperature 97.3 [degF]97.6-99.0[facility] 2024 2:03pmHeart Rate77 /jmp71-245Bywfvrn 2024 2:03pmOxygen saturation by Pulse angsldzy86 %95-100[facility] 2024 2:03pmBP Rtvkionc618 mm[Hg]100-140Octbaptist health [facility] 2024 2:03pmBP Ntvvweidg09 mm[Hg]60-100Octbaptist health [facility] 2024 2:03pmBMI (Body Mass Index)24.5 kg/q4Ojjbpqk 2024 2:03pm Advance Directives Advance Directive Response Recorded Date/ Time Advance Directives No December 12:18pm Insurance Providers Guarantor Nevaeh Zayas Address [address].Home Phone: Coverage Status Update:2024 Payer Group Member ID Coverage Type Subscriber Relationship to Subscriber Effective Date Expiration Date Sandro SILVERMAN Id: [id number] A Bizorik , Jr Id: [id number] [address] [place] [phone] Home Phone: Email: [email or web address] [id number] L Bizorik Id: [id number] [address] [place] [phone] Home Phone: Email: declined SelfMedicare Nonpatient [id number] L Bizorik Id: [id number] [address] [place], [place] [address] Home Phone: Email: declined SelA[facility]prisethe [facility] [employer]FFS Retired Id: [id number] L Bizorik Id: [id number] [address] [place] [phone] Home Phone: Email: declined SelfUnited Healthcare [employer] Retired Id: [id number] L Bizorik Id: [id number] [address] [place] [phone] Home Phone: Email: declined SelfUnited Healthcare Id: [id number] A Bizorik , Jr Id: [id number] [address] [place] [phone] Home Phone: Email: [email or web address] Encounters Encounter Location(s) Arrival/Admit Date Discharge/Departure Date Discharge/Departure Disposition Provider(s) Departed Physician/ Provider Office Visit -[facility] Vascular Surgery [place] September 02, 2025 1:52pm September 02, 2025 2:28pm Discharged to home care or self care (routine discharge) Hilario Rowland MD Recent Diagnosis Onset Date Admit Date Right leg swelling Unknown September 02, 2025 1:52pm Assessments Diagnosis Onset Date Resolution Status Admit Date Right leg swelling acuteOctober 2024 1:52pm Plan of Treatment Author Hilario Rowland [facility] HospitalAuthoredOctbaptist [facility] 2024 2:20pmPhysical examination is more consistent with venous insufficiency than lymphedema. Will obtain a full functional venous duplex examination of both lower extremities to look for any evidence of venous valvular incompetence. I will see her back once that is accomplished and review the findings with her. Future Tests Future scheduled test information is unavailable Pending Tests Pending diagnostic test information is unavailable Future Visits Future appointment information is unavailable Future Procedures Future procedure information is unavailable Future Medications Future medication information is unavailable Patient Instructions Patient instructions are unavailable
--- OUTSIDE RECORDS SUMMARY | 2025-09-10 12:10 | XMS_ITS | Clinical Summary ---
Author Organization [facility] Address [address] [place] [address] Care Team Providers Care Show Host Or Hostess Name Role Phone Dileep Covarrubias MD Primary Care Provider [phone] Allergies Active AllergyReactionsCriticalityNoted WvuyOtaphnrfKvrbsma-Dol-Ukl Reductase LiztnjgtkjKhdkavu97/24/2023 Medications MedicationSigDispense QuantityRefillsLast FilledStart DateEnd DateStatus pantoprazole (PROTONIX) 40 mg ORAL tablet Take one(1) tablet daily.ctive gemfibrozil (LOPID) 600 mg ORAL tablet Take one(1) tablet two(2) times daily.ctive ascorbic acid, vitamin C, (VITAMIN C) 500 mg tablet 11/07/1999Active aspirin, enteric coated (ASPIRIN, ENTERIC COATED) 81 mg EC tablet 11/07/1989Active Biotin 2,500 mcg cap 11/07/1989Active CALCIUM CITRATE-VITAMIN D3 ORAL 11/07/1989Active docusate sodium (COLACE) 100 mg capsule 11/07/1989Active ezetimibe (ZETIA) 10 mg tablet Take 10 mg by mouth once daily.07/05/2020Active BREO ELLIPTA 100-25 mcg/dose inhaler 09/07/2020Active glucosamine-chondroitin 500-400 mg capsule 08/07/1990Active mecobalamin, vitamin B12, 1,000 mcg chew 11/07/2014ctive multivit,iron,minerals/lutein (CENTRUM SILVER ULTRA WOMEN'S ORAL) 11/07/1999Active Simethicone 125 mg cap 01/01/2015Active vitamin E mixed 400 unit cap 11/07/1989Active omega 4-nye-dbd-fish oil (FISH OIL) 100-160-1,000 mg cap Fish OilActive denosumab (PROLIA SUBCUTANEOUS) 07/08/2020Active gabapentin (NEURONTIN) 100 mg capsule Take 1 capsule by mouth once daily as needed (for sciatica) for up to 180 days. 11/12/2020ctive albuterol HFA (PROAIR HFA) 90 mcg/actuation inhaler 2 Puffs every 6 hours as needed. Take as cmbddaid92/06/2021ctive cyanocobalamin/folic acid (VITAMIN L57-WKTRN ACID) 1,000-[address] by sublingual route.Active Active Problems ProblemNoted DateDiagnosed DateCOPD (chronic obstructive pulmonary disease) Assessment & Plan (11/12/2020 11:32 AM EST): Assessment: uses Breo once daily. States does not need albuterol. States COPD is mild. Admits to chronic mostly dry smoker's cough without new symptoms. States breathing is stable. Denies home oxygenuse. Encouraged smoking cessation. GERD (gastroesophageal reflux disease) Assessment & Plan (11/12/2020 11:32 AM EST): Assessment: on prescription Protonix. Reports symptoms are controlled with medication HLD (hyperlipidemia) Assessment & Plan (11/12/2020 11:32 AM EST): Assessment: on Lopid and Zetia. Tobacco abuse Assessment & Plan (11/12/2020 11:32 AM EST): Assessment: 1 ppd x 53 years. Encouraged cessation Family History Medical HistoryRelationCommentsunknownFatherunknownMotherRelationStatusComments FatherMother Social History Tobacco UseTypesPacks/DayYears UsedDateSmoking Tobacco: Every UbgQxcojczmby065 Smokeless Tobacco: Never Tobacco Cessation:Ready to Q uit: No; Counseling Given: Yes Alcohol UseStandard Drinks/WeekCommentsNever0 (1 standard drink = 0.6 oz pure alcohol)AUDIT-CAnswerDate RecordedQ1: How often do you have a drink containing alcohol?Never09/09/2020Average Number of DrinksNot on file09/09/2020Frequency of Binge DrinkingNot on file09/09/2020PHQ-2AnswerDate RecordedPHQ-2 score0 4Area Deprivation IndexAnswerDate RecordedNational Score (1-100), lower number is lower icoq340501/31/2024State Score (1-10), lower number is lower risk4 4Data from: https://www.neighborhoodatlas.medicine.[facility].edu/. Last address used for mbzgkmvvuit[address] [facility]4CommentsNoSex and Gender InformationValueDate RecordedSex Assigned at GpptkOryoxe12/02/2020 10:57 PM ESTLegal VfaZhqfze83/02/2012 8:32 AM ESTGender FrxhlaenIytlfo37/02/2020 10:57 PM ESTSexual NlpfajtvlfyDfnxzrxz77/02/2020 10:57 PM EST Last Filed Vital Signs Vital SignReadingTime TakenCommentsBlood Htcroykm517/60012/03/2020 9:50 AM EST Tudaj133612/03/2020 9:50 AM GYKGmrweijblso19.2 ??C (97.1 ??F)12/03/2020 9:38 AM ESTRespiratory Hmde213612/03/2020 9:50 AM ESTOxygen Nrttptgvcl22%12/03/2020 9:50 AM ESTInhaled Oxygen Concentration--Pooyke25 kg (130 lb)11/12/2020 11:08 AM EST patient abvnnfplUqewfj860.9 cm (5' 1 )11/12/2020 11:08 AM ESTpatient reported Body Mass Index24.56011/12/2020 11:08 AM EST Plan of Treatment Health MaintenanceDue DateLast DoneCommentsAnnual PCP Team Chronic Disease Visit 1963Anxiety Ddfijeseq57/06/1965Depression Steudbqmt77/06/1965Hepatitis C Uhwdimgdu27/06/1965Bone Density Ukvsoiste04/06/2012RSV Vaccine (1 - 1-dose 75+ series)2Diabetes Tfosdvwhk11/21/605579/1Advance Directive Jqjchsgjia83/01/2025Medicare Advantage Annual Wellness Visit5Covid-19 Vaccine ( season)505/12/2021, 04/28/2021, 04/07/2021 Influenza Vaccine (#1)/11/2021, 08/13/2021, 07/20/2020, Additional history existsDTaP,Tdap,Td Vaccine (3 - Td or Tdap), 07/25/2016Pneumococcal Vaccine: 50+Xaqiukcwk88/29/2017, 10/09/2014Shingrix LbnknttNqqqfbwtq29/29/2019, 09/01/2019Mammogram WtxcyfjfkVjwkawfkocag55/28/2022, 08/04/2022, 08/03/2021, Additional history exists Medical Devices ImplantedTypeAreaManufacturerDevice IdentifierShelf Expiration DateModel / Serial / LotLens Iol 0d +15 Edrik Uv Abs - [id number] Implanted:Qty: 1 on 11/19/2020 by Celena Wade V, MD at [facility] Intraocular LensLeft: [employer] [id number]/30/[id number].150 / [id number] / Description:-0.26Lens Iol 0d +15 Derik Uv Abs - [id number] Implanted:Qty: 1 on 12/03/2020 by Celena Wade V, MD at [facility] Intraocular LensRight: [employer] [id number]/30/[id number].150 / [id number] / Description:-0.33 Insurance Care Teams Team MemberRelationshipSpecialtyStart DateEnd Date Dileep Covarrubias MD PCP - GeneralFamily Uutotvzc47/25/10
--- OUTSIDE RECORDS SUMMARY | 2025-09-10 12:10 | XMS_ITS | Clinical Summary ---
Author Organization [facility], Mobile Secretary s tem Address [id number] [place] [address] Care Team Providers Care Package Reinspector Name Role Phone Dileep Covarrubias MD Primary Care Provider [phone] Allergies No known active allergies Medications MedicationSigDispense QuantityRefillsLast FilledStart DateEnd DateStatus ezetimibe (ZETIA) 10 mg tablet Take 10 mg by mouth daily. 02/25/2021ctive BREO ELLIPTA 100-25 mcg/dose blister with device Inhale 1 puff daily. 03/22/2021ctive gemfibroziL (LOPID) 600 mg tablet Take 600 mg by mouth 2 (two) times a day. 2021ctive pantoprazole (PROTONIX) 40 mg EC tablet Take 40 mg by mouth daily.01/20/2021ctive denosumab (PROLIA SUBQ) Inject under the skin every 6 (six) months. Every 6 mos Active aspirin 81 mg Take 81 mg by mouth daily.Active Active Problems ProblemNoted DateDiagnosed DateCris stone03/25/2021 Overview (12/22/2021): 03/25/21: Passed a 3 mm stone 03/20/2021. She is already scheduled for a follow- up ultrasound this weekend to ensure hydronephrosis resolves. We will check a microscopic urine for blood at that time as well. If follow-up testing is negative, we will see her back in 9 months with a KUB or sooner if any problems. I am sending her stone for analysis. We will mail her a copy of the report along with any pertinent dietary guidelines. 04/01/21: US 03/28/21 showed improved but persistent mild hydronephrosis on the right side. I do not see follow-up UA. Plan to recheck another ultrasound in about a month. 05/28/21: Persistent hydronephrosis on ultrasound in April 2021. Cysto with bilateral retrograde pyelogram showing normal caliber ureter. Mild blunting of right upper pole calyx but no filling defects. 12/22/21: KUB with no new stones. Today we talked about ways to decrease stone recurrences includingincreased hydration (more than 2.5 liters or urine output per day), avoidance of Western diet and not changing calcium consumption. Followup if symptomatic Assessment & Plan (03/25/2021 2:40 PM EDT): She would like to follow-up with Dr. Tian as her is a patient of his Family History Medical HistoryRelationNameCommentsCOPDFatherHeart diseaseFatherAnesthesia problemsNeg HxRelationNameStatusCommentsFatherDeceasedMotherDeceased Social History Tobacco UseTypesPacks/DayYears UsedDateSmoking Tobacco: Every OgnSnjijfbhjp984 Smokeless Tobacco: Never Tobacco Cessation:Ready to Q uit: No; Counseling Given: Yes Alcohol UseStandard Drinks/WeekCommentsNever0 (1 standard drink = 0.6 oz pure alcohol)CommentsNoSex and Gender InformationValueDate RecordedSex Assigned at BirthNot on fileLegal IfhMlbpzz32/10/2021 2:45 PM EDTGender Identity Not on fileSexual OrientationNot on file Last Filed Vital Signs Vital SignReadingTime TakenCommentsBlood Uptsmsjf095/63012/22/2021 2:17 PM EST Nfsnk352812/22/2021 2:17 PM NPZNwkjlkyjwjr98.4 ??C (97.5 ??F)05/28/2021 3:45 PM EDTRespiratory Qiyd112812/22/2021 2:17 PM ESTOxygen Qvmfmyhhyu11%05/28/2021 3:45 PM EDTInhaled Oxygen Concentration--Yagfcu83.8 kg (123 lb)12/22/2021 2:17 PM EST Luewkg708.9 cm (5' 1 )12/22/2021 2:17 PM ESTBody Mass Index23.24012/22/2021 2:17 PM EST Plan of Treatment Health MaintenanceDue DateLast DoneCommentsDepression Oaiaimnyy21/06/1959Tobacco Doclzidzz64/06/1959Fall Risk Kcykojeik85/06/2012RSV ( or age 60+ yrs) (1 - 1-dose 75+ series)2COVID-19 Vaccine (3 - season)2025 04/28/2021, 04/07/2021Influenza Vfltkbb30/05/2021, 07/20/2020, 07/27/2019, Additional history existsDTaP,Tdap and Td Vaccines (2 - Td or Tdap) Zoster (Shingles) DxovuibVuvveszju66/29/2019, 09/01/2019 Medical Devices Not on file Insurance Care Teams Team MemberRelationshipSpecialtyStart DateEnd Date Dileep Covarrubias MD PCP - GeneralFavtly Medicine03/25/21
--- OUTSIDE RECORDS SUMMARY | 2025-09-10 12:10 | XMS_ITS | Clinical Summary ---
Author Organization [facility] Address [address] [place] [address] Care Team Providers Care Web Search Evaluator Name Role Phone Dileep Covarrubias MD Primary Care Provider [phone] Allergies No known active allergies Medications MedicationSigDispense QuantityRefillsLast FilledStart DateEnd DateStatus ezetimibe (Zetia) 10 MG tablet TAKE 1 TABLET BY MOUTH EVERY DAY FOR 90 DAYSActive pantoprazole (ProtoNix) 40 MG EC tablet Take 1 tablet by mouth DailyActive gabapentin (Neurontin) 100 MG capsule 1 capsule 1 (one) time each day at the same timeActive cyanocobalamin (Vitamin B-12) 1000 MCG tablet OrallyActive simethicone (Mylicon) 125 MG chewable tablet 1 (one) time each day at the same timeActive Biotin 2500 MCG chewable tablet Active Ascorbic Acid (Vitamin C) 500 MG capsule Vitamin CActive Calcium Citrate-Vitamin D (CALCIUM CITRATE + D PO) Take by mouthActive glucosamine-chondroitin 500-400 MG tablet Take 1 tablet by mouth in the morning and 1 tablet in the evening and 1 tablet before bedtime.Active fish oil concentrate (Crook-3) 300 MG capsule Take 550 mg by mouth DailyActive polyethylene glycol, PEG, 3350 (Miralax) 17 g packet Take by mouthActive Fluticasone Furoate-Vilanterol (Breo Ellipta) 100-25 MCG/ACT aerosol powder InhaleActive gemfibrozil (Lopid) 600 MG tablet Take 600 mg by mouth in the morning and 600 mg in the evening. Take before meals.Active Denosumab (PROLIA SC) Inject under the skinActive Multiple Vitamin (multivitamin) tablet Take 1 tablet by mouth DailyActive vitamin E 180 MG (400 UNIT) capsule Take 180 mg by mouth DailyActive docusate sodium (Colace) 100 MG capsule Take 100 mg by mouth in the morning and 100 mg before bedtime.Active aspirin 81 MG EC tablet Take 81 mg by mouth DailyActive Active Problems ProblemNoted DateDiagnosed DateCOPD (chronic obstructive pulmonary disease) 10/02/2024GERD (gastroesophageal reflux disease)10/02/2024HLD (hyperlipidemia) 10/02/2024 Family History Medical HistoryRelationNameCommentsHeart diseaseFatherCancerMotherRelationName StatusCommentsFatherDeceasedMotherDeceased Social History Tobacco UseTypesPacks/DayYears UsedDateSmoking Tobacco: Every DayCigarettes Smokeless Tobacco: Never Tobacco Cessation:Ready to Q uit: Not Asked; Counseling Given: Not Answered Alcohol UseStandard Drinks/WeekCommentsNot Currently0 (1 standard drink = 0.6 oz pure alcohol)CommentsUnknownSex and Gender InformationValueDate Recorded Sex Assigned at RklkkLgkoni81/01/2024 6:09 PM EDTLegal FrmZinfzp39/15/2023 6:47 PM EDTGender GvsmfbfxAfvmzx36/01/2024 6:09 PM EDTSexual OrientationStraight 09/07/2024 6:09 PM EDT Last Filed Vital Signs Vital SignReadingTime TakenCommentsBlood Nrcyaxfp638/80011/09/2021 12:00 PM EST Pulse--Temperature--Respiratory Rate--Oxygen Saturation--Inhaled Oxygen Concentration--Usvgcf01.7 kg (125 lb)11/09/2021 12:00 PM FIEYacbgv064.2 cm (5' 1.5 )11/09/2021 12:00 PM ESTBody Mass Index23.24011/09/2021 12:00 PM EST Plan of Treatment Not on file Insurance Care Teams Team MemberRelationshipSpecialtyStart DateEnd Dileep Covarrubias MD PCP - GeneralFamily Wenrvvyx19/26/24
--- OUTSIDE RECORDS SUMMARY | 2025-09-10 12:10 | XMS_ITS | Patient Health Record ---
Author Organization [facility] in [place] Address [address] [place] [address] Care Team Providers Care [facility] Specialists Name Role Phone Ron Covarrubias Primary Care Provider Allergies No Known Allergies Results Component Value Reference Range Notes CBC AUTO DIFF Reviewed date:11/05/2024 08:18:21 PM Interpretation: Performing Lab: Notes/Report: [facility] , White Blood Count 11.5 4.0-11.0 10 3/uL Red Blood Count4.704.20-5.40 10 6/iPXzkxjsxxpq60.712.0-16.0 g/bBMvqzkjqcfm56.1 36.0-48.0 %Mean Corpuscular Lgdafu95.881.0-99.0 fLMean Corpuscular Hemoglobin 31.326.7-34.0 pgMean Corpuscular HGB Conc33.329.9-35.2 g/dLRed Cell Distribution Width13.111.0-15.0 %Platelet Jyaol971024-699 10 3/uLMean Platelet Pztfnt99.19.5- 13.5 fLPerforming Lab:see noteML - [facility] LBCALCIUM Reviewed date:09/12/2024 08:58:05 PM Interpretation: Performing Lab: Notes/Report: [facility] ,Calcium9.98.5-10.1 mg/dLPerforming Lab:see noteML - [facility] LB CREATININE Reviewed date:09/12/2024 08:58:05 PM Interpretation: Performing Lab: Notes/Report: [facility] ,Creatinine0.820.55-1.02 mg/dLEstimated GFR ( Laureen>60>=60 mL/min/1.73m 2Estimated GFR (Non- Gely>60>=60 mL/min/1.73m 2Performing Lab:see note - [facility] LBUA (CLEAN or CATCH) PROCESS EXCELLENCE MANAGER or MICRO IF IND. Reviewed date:11/07/2024 03:12:53 PM Interpretation: Performing Lab: Notes/Report: [facility] ,Color UrineLT. YELLOWYELLOWClarity UrineCLEARCLEARSpecific [place] Urine1.010 1.005-1.025pH Urine6.05.0-9.0Protein UrineNEGATIVENEG/TRACE mg/dLGlucose Urine UANEGATIVENEGATIVE mg/dLBilirubin UrineNEGATIVENEGATIVEKetones UrineNEGATIVE NEGATIVE mg/dLBlood UrineNEGATIVENEGATIVENitrite UrineNEGATIVENEGATIVE Urobilinogen Urine0.20.2-1.0 EU/dLLeukocyte Esterase UrineNEGATIVENEGATIVEUrine Microscopic IndicatedNOPerforming Lab:see noteML - [facility] LBMM tomosynthesis screening BI Reviewed date:08/15/2025 05:57:08 PM Interpretation: Performing Lab: Notes/Report: Source Facility: [place] [address] Mammography Report Signed Patient: NEVAEH THOMAS MR#: [id number] : 1945 Acct:[id number] Age/Sex: 80 / F ADM Date: 08/15/25 Loc: MAMMO Attending Dr: Loni Covarrubias M.D. Ordering Physician: Loni Covarrubias M.D. Results: Date of Service: 08/15/25 Follow Up: Procedure(s): MM tomosynthesis screening BI Accession Number(s): [id number] cc: Loni Covarrubias M.D. Patient Name: NEVAEH THOMAS MR#: [id number] : 1945 Exam Date: 08/15/2025 Ordering Doctor: DR LONI COVARRUBIAS . RADIOLOGY REPORT PROCEDURE: MM TOMOSYNTHESIS SCREENING BI COMPARISON: MM TOMOSYNTHESIS SCREENING BI, 08/13/2024. MM TOMOSYNTHESIS SCREENING BI, 08/11/2023. MG MAMM SCREEN 3D APPLE CAD, 08/04/2022. MG MAMM APPLE SCRN W CAD DIG, 09/07/2013. INDICATIONS: Screening for malignant neoplasm Calculator Name NCI Breast Cancer Risk Assessment Tool 5 Year Breast Cancer Risk 2.40% Lifetime Breast Cancer Risk 4.30% Personal Breast Cancer No Personal Ovarian Cancer No Treatments None Family Cancers Mother with lung cancer at age 82. LOCATION: [facility] BREAST COMPOSITION: There are scattered areas of fibroglandular density. FINDINGS: DIAGNOSTIC CATEGORY 1--NEGATIVE. RIGHT BREAST: No significant suspicious finding. LEFT BREAST: No significant suspicious finding. RECOMMENDATIONS: ROUTINE MAMMOGRAM AND CLINICAL EVALUATION IN 12 MONTHS. Dictated by: Brandon Carmona DO on 08/15/2025 at 14:40 Approved by: Brandon Carmona DO on 08/15/2025 at 14:41 Dictated By: Brandon Carmona M.D. Signed By: 08/15/25 1442 DD/ 1441 TD/TT: [place] Operator:CALCIUM Reviewed date:08/25/2025 11:08:12 AM Interpretation: Performing Lab: Notes/Report: [facility] ,Calcium8.98.5-10.1 mg/dLPerforming Lab:see note - [facility] LB CREATININE Reviewed date:08/25/2025 11:08:12 AM Interpretation: Performing Lab: Notes/Report: [facility] ,Creatinine0.610.55-1.02 mg/dLEstimated GFR ( Laureen>60>=60 mL/min/1.73m 2Estimated GFR (Non- Gely>60>=60 mL/min/1.73m 2Performing Lab:see noteML - [facility] LBBox Test Reviewed date:11/11/2024 05:02:28 PM Interpretation: Performing Lab: Notes/Report: Sputum Culture [facility] ,BOX Test Sent OutSputum CultureBOX Test Reference LabFirelandsBOX Test Date Sent11/06/24BOX Test ResultSEE SCANNED REPORTPerforming Lab:see noteML - [facility] LBPROF 14(COMP METB) Reviewed date:11/07/2024 03:12:53 PM Interpretation: Performing Lab: Notes/Report: [facility] ,Rjmnxm555049-381 mmol/LPotassium3.63.5-5.1 mmol/EFbkgbstm64368-481 mmol/LCarbon Rxhumuh74.621.0-32.0 mmol/LAnion Gap16.1Ucipaky99763-964 mg/dLBlood Urea Adxyxbmz33.07.0-18.0 mg/dLCreatinine0.650.55-1.02 mg/dLEstimated GFR ( Laureen>60>=60 mL/min/1.73m 2Estimated GFR (Non- Gely>60>=60 mL/min/1.73m 2BUN Creatinine Ratio26.1Qjzfcmx2.28.5-10.1 mg/dLBilirubin Total0.30.2-1.0 mg/dL Aspartate Amino Sdurnbotchb7643-65 U/LAlanine Loemuhaehnqlvnac8680-87 U/L Alkaline Kjaypajomzz9120-562 U/LTotal Protein6.36.4-8.2 g/dLAlbumin Level3.13.4- 5.0 g/dLGlobulin3.2Albumin Globulin Ratio1.0Performing Lab:see noteML - [facility] LBCBC AUTO DIFF Reviewed date:11/07/2024 03:12:53 PM Interpretation: Performing Lab: Notes/Report: [facility] ,White Blood Count8.04.0-11.0 10 3/uLRed Blood Count4.344.20-5.40 10 6/uL Upudpplrrn24.812.0-16.0 g/lJZoorxgllbc78.936.0-48.0 %Mean Corpuscular Zkietw74.2 81.0-99.0 fLMean Corpuscular Dzxpvcvgkz09.826.7-34.0 pgMean Corpuscular HGB Conc 33.729.9-35.2 g/dLRed Cell Distribution Width13.111.0-15.0 %Platelet Eijpl524 150-450 10 3/uLMean Platelet Epqege86.49.5-13.5 fLNeutrophils Percent Auto91.5 43.0-75.0 %Lymphocytes Percent Auto4.620.5-60.0 %Monocytes Percent Auto3.11.7- 12.0 %Eosinophils Percent Auto0.00.9-7.0 %Basophils Percent Auto0.40.2-2.0 % Immature Granulocytes Pct Auto0.40.0-0.5 %Neutrophils Absolute Auto7.31.4-6.5 10 3/uLLymphocytes Absolute Auto0.41.2-3.8 10 3/uLMonocytes Absolute Auto0.30.3-0.8 10 3/uLEosinophils Absolute Auto0.00.0-0.7 10 3/uLBasophils Absolute Auto0.00.0- 0.1 10 3/uLImmature Granulocytes Abs Auto0.030.00-0.03 10 3/uLPerforming Lab:see noteML - [facility] LBXR chest 2V Reviewed date:11/07/2024 03:12:53 PM Interpretation: Performing Lab: Notes/Report: Source Facility: [place] [address] XRay Report Signed Patient: NEVAEH THOMAS MR#: [id number] : 1945 Acct:[id number] Age/Sex: 79 / F ADM Date: 11/05/24 Loc: ER Attending Dr: Ordering Physician: Meseret Hurley Date of Service: 11/05/24 Procedure(s): XR chest 2V Accession Number(s): [id number] cc: Loni Covarrubias M.D.; Meseret Hurley [place] [address] Patient Name: NEVAEH THOMAS MRN: TBH:[id number] date: 1945 Sex: F Assigned Patient Location: ER Current Patient Location: ED.MAIN Accession/Order Number: [id number] Exam Date: 11/05/2024 20:25 Report Date: 11/05/2024 21:30 At the request of: MESERET HURLEY Procedure: XR chest 2V EXAMINATION: XR chest 2V HISTORY: SOB, hx copd + influenza COMPARISON: XR chest 04/13/2024 FINDINGS: LUNGS: No significant pulmonary parenchymal abnormalities. VASCULATURE: No increased pulmonary vasculature. PLEURA: No pneumothorax, effusion, or pleural thickening. CARDIAC: No cardiomegaly or cardiac silhouette abnormality. MEDIASTINUM: No visible mass or adenopathy. BONES: No fracture or visible bone lesion. OTHER: Negative. XR/XR chest 2V IMPRESSION: 1. Slightly hyperexpanded lungs. 2. No acute cardiopulmonary process. Electronically authenticated by: ELKIN BENAVIDEZ Date: 11/05/2024 21:30 Dictated By: Elkin Benavidez M.D. Signed By: 11/05/242131 DD/ 29 TD/TT: [place] Operator:ECG 12 lead Reviewed date:11/11/2024 05:02:28 PM Interpretation: Performing Lab: Notes/Report: Source Facility: [place] [address] Electrocardiograph Report Signed Patient: NEVAEH THOMAS MR#: [id number] : 1945 Acct:[id number] Age/Sex: 79 / F ADM Date: 11/05/24 Loc: MS 220- Attending Dr: Loni Covarrubias M.D. 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 Signed By: 11/08/24 1626 DD/ 1909 TD/TT: [place] Operator:SARS-CoV-2 Ag* Reviewed date:11/05/2024 08:18:21 PM Interpretation: Performing Lab: Notes/Report: [facility] ,SARS-CoV-2 AgNEGATIVENEGATIVE authorized for the duration of the declaration that and/or diagnosis of Covid-19 under section 564(b)(1) of the emergency use of in vitro diagnostic tests for detection Act, 21 U.S.C. 360bbb-3(b)(1), unless the declaration is authorized by the FDA under an Emergency Use Authorization terminated or authorization is revoked sooner. (EUA) for use by authorized laboratories certified under circumstances exist justifying the authorization of CLIA that meet the requirements to perform moderate or high complexity testing. This test has been authorized only for This test has not been FDA cleared or approved, but has been the detection of proteins from SARS-CoV-2, not for any other viruses or pathogens. The emergency use of this test is Performing Lab:see noteML - [facility] LBTroponin I High Sensitivity Reviewed date:11/05/2024 08:18:21 PM Interpretation: Performing Lab: Notes/Report: [facility] ,Troponin I High Kdgtxeeyita55.04.0-51.3 pg/mL HAS BEEN CONFIRMED THE DECISION THRESHOLD FOR OK PERCENTILE OF cTnI DISTRIBUTION IN A REFERENCE POPULATION, NOTE: HIGH-SENSITIVITY TROPONIN ASSAY IS NOT INTENDED TO BE 99TH PERCENTILE = 51.4 PG/ML REFERENCE LIMIT (URL) OF TROPONIN, DEFINED THE 99TH CUT-OFF POINTS HAVE BEEN ESTABLISHED BASED ON THE FOURTH DIAGNOSIS. WITH OTHER DIAGNOSTIC AND CLINICAL INFORMATION. UNIVERSAL DEFINITION OF MYOCARDIAL INFARCTION. THE UPPER USED IN ISOLATION BUT SHOULD BE INTERPRETED IN CONJUNCTION Performing Lab:see noteML - [facility] LBManual Differential Reviewed date:11/05/2024 08:18:21 PM Interpretation: Performing Lab: Notes/Report: [facility] ,Segmented Neutrophils % Ithqpl85.043.0-75.0Lymphocytes Percent Manual0.020.5- 60.0 %Monocytes Percent Manual7.01.7-12.0 %Eosinophils Percent Manual0.00.9-7.0 %Basophils Percent Manual0.00.2-2.0 %Atypical Lymphocytes % Manual1.0Segmented Neut Absolute Medkiy63.581.4-6.5 10 3/uLLymphocytes Absolute Manual0.001.20-3.80 10 3/uLMonocytes Absolute Manual0.800.30-0.80 10 3/uLEosinophils Absolute Manual 0.000.00-0.70 10 3/uLBasophils Abs Manual0.000.00-0.10 10 3/uLAtypical Lymphocytes Abs Man0.11Performing Lab:see note - [facility] LB Prothrombin Time INR Reviewed date:11/05/2024 08:18:21 PM Interpretation: Performing Lab: Notes/Report: [facility] ,Prothrombin Time10.59.0-11.6 secINR0.99 2.5-3.5 RECURRENT THROMBOSIS 2.5-3.5 FOR PROSTHETIC HEART VALVE REPLACEMENT 2.0-3.0 CONDITIONS NOT LISTED BELOW DESIRED INR: [facility] LBBlood Culture 2 Reviewed date:11/11/2024 05:02:28 PM Interpretation: Performing Lab: Notes/Report: [facility] ,Blood Culture 2See Below For Report NG5D NO GROWTH AT 5 DAYS. Blood Culture 2 Performing [facility] LBBlood Culture 1 Reviewed date:11/11/2024 05:02:28 PM Interpretation: Performing Lab: Notes/Report: [facility] ,Blood Culture 1See Below For Report NG5D NO GROWTH AT 5 DAYS. Blood Culture 1 Performing Lab:see note - [facility] LBRSV Reviewed date:11/05/2024 08:18:21 PM Interpretation: Performing Lab: Notes/Report: [facility] ,Respiratory Syncytial VirusNot DetectedNOT DETECTEPerforming Lab:see [facility] LBPROF 14(COMP METB) Reviewed date:11/05/2024 08:18:21 PM Interpretation: Performing Lab: Notes/Report: [facility] ,Vzcbvv771337-386 mmol/LPotassium3.53.5-5.1 mmol/NZfuddnxy31043-756 mmol/LCarbon Gixmpzu10.721.0-32.0 mmol/LAnion Gap10.9Aweywds28200-443 mg/dLBlood Urea Wxgsztjo34.07.0-18.0 mg/dLCreatinine0.700.55-1.02 mg/dLEstimated GFR ( Laureen>60>=60 mL/min/1.73m 2Estimated GFR (Non- Gely>60>=60 mL/min/1.73m 2BUN Creatinine Ratio22.6Aakqlga5.98.5-10.1 mg/dLBilirubin Total0.50.2-1.0 mg/dL Aspartate Amino Iwwdjqgscmg7841-84 U/LAlanine Teglrnpresvbruhd9252-35 U/L Alkaline Oyfbkucjdsz8096-312 U/LTotal Protein7.26.4-8.2 g/dLAlbumin Level3.83.4- 5.0 g/dLGlobulin3.4Albumin Globulin Ratio1.1Performing Lab:see noteML - [facility] LBMAGNESIUM Reviewed date:11/05/2024 08:18:21 PM Interpretation: Performing Lab: Notes/Report: [facility] ,Magnesium1.61.8-2.4 mg/dLPerforming Lab:see noteML - [facility] LB LACTATE or LACTIC ACID Reviewed date:11/05/2024 08:18:21 PM Interpretation: Performing Lab: Notes/Report: [facility] ,Lactate/Lactic Acid1.00.4-2.0 mmol/LPerforming Lab:see noteML - [facility] LBINFLUENZA A AND B AG Reviewed date:11/05/2024 08:18:21 PM Interpretation: Performing Lab: Notes/Report: [facility] ,Influenza Virus A AntigenPositive NOTE: Live attenuated influenza vaccine viruses can cause a administered up to 7 days prior to rapid testing. positive result for a rapid influenza diagnostic test if Influenza Virus B AntigenNegative below the detection limit of the test. Negative for Flu B protein antigen. Infection due to Flu B cannot be ruled out. Flu B antigen in the sample may be Performing Lab:see noteML - [facility] LBD-DIMER Reviewed date:11/05/2024 08:18:21 PM Interpretation: Performing Lab: Notes/Report: [facility] ,D Dimer0.45<=0.59 mg/L FEU Increases in D-Dimer concentration observed with hospitalization. reference range. D-Dimers may also be elevated for a variety or anticoagulant therapy, stress, and generalized event cannot be diagnosed with certainty on the basis of the disease, cancer, liver disease, infection, inflammation, of disorders including advanced age, , coronary size, and age of the thrombus. Therefore, a thromboembolic hematoma, DIC, trauma, post-surgery, diabetes, thrombolytic thromboembolic events can be variable due to localization, Performing Lab:see note - [facility] LBBNP Reviewed date:11/05/2024 08:18:21 PM Interpretation: Performing Lab: Notes/Report: [facility] ,NT Pro B Type Natriuretic Sdny4456.0<=1800.0 pg/mLPerforming Lab:[facility] LBLIPID PROFILE Reviewed date:01/24/2025 05:05:04 PM Interpretation: Performing Lab: Notes/Report: [facility] ,Iifpmjoslesbw55<=150 mg/rEAaoyndmmqwr641<=200 mg/dLHDL Zgejhbsdqug2899-56 mg/dL > or =60 mg/dl - LOW CARDIOVASCULAR RISK <40 mg/dl - HIGH CARDIOVASCULAR RISK LDL Cholesterol Yyuptxgtjc90.0 130-159 mg/dl BORDERLINE HIGH 160-189 mg/dl HIGH <100 mg/dl OPTIMAL 100-129 mg/dl NEAR OR ABOVE OPTIMAL >190 mg/dl VERY HIGH VLDL CHOLESTEROL7.6Chol HDL Ratio2.5 7.1 - 11.0 MODERATE RISK >11.0 HIGH RISK 3.3 - 4.4 LOW RISK 4.4 - 7.1 AVERAGE RISK Performing Lab:see note - [facility] LBGLYCOHEMOGLOBIN A1C Reviewed date:01/24/2025 05:05:04 PM Interpretation: Performing Lab: Notes/Report: [facility] ,Glycohemoglobin A1C5.44.5-6.2 % ACTION SUGGESTED > 7.0 ADA RECOMMENDED LIMIT 4.0 - 6.0 ADA THERAPEUTIC TARGET < 7.0 Estimated Average Yuqteen255Qybsjfdfkp Lab:[facility] LB CA echo doppler complete Reviewed date:02/03/2025 03:48:38 PM Interpretation: Performing Lab: Notes/Report: Source Facility: [place] [address] [place] [address] Cardiology Report Signed Patient: NEVAEH THOMAS MR#: [id number] : 1945 Acct:[id number] Age/Sex: 79 / F ADM Date: 02/01/25 Loc: CARD Attending Dr: Loni Covarrubias M.D. Ordering Physician: Loni Covarrubias M.D. Date of Service: 02/01/25 Procedure(s): CA echo doppler complete Accession Number(s): [id number] cc: Loni Covarrubias M.D. Patient Name: NEVAEH THOMAS MR#: [id number] : 1945 Exam Date: 02/01/2025 Ordering Doctor: DR Loni Covarrubias . ECHOCARDIOGRAM REPORT PROCEDURE: CA ECHO DOPPLER COMPLETE INDICATIONS: Edema, COPD COMPARISON: None. DESCRIPTION: COMPLETE ECHOCARDIOGRAM Real-time transthoracic echocardiography with 2D, M-mode, spectral and color flow Doppler performed. QUALITY: Technical quality was good. LEFT VENTRICLE: Normal chamber size. Thickened septal wall. Mild concentric hypertrophy. Normal systolic function. LV EF: Normal left ventricular ejection fraction, (>55%). DIASTOLIC: Diastolic function is indeterminate. ATRIAL SEPTUM: LEFT ATRIUM: Normal chamber size. RIGHT ATRIUM: Normal chamber size. RIGHT VENTRICLE: Normal chamber size. Normal right ventricular systolic function. TRICUSPID VALVE: Normal mobility and thickness. No stenosis with trivial regurgitation. No evidence of pulmonary hypertension. RVSP 31 mmHg MITRAL VALVE: Normal mobility and thickness. No evidence of mitral valve stenosis. Mild mitral regurgitation. Moderate posterior mitral annular calcification. AORTIC VALVE: Normal trileaflet appearance. Thickened aortic valve. Normal leaflet mobility. No evidence of aortic valve stenosis. Trivial aortic regurgitation. AORTIC ROOT: Normal diameter and appearance, measuring 3.0 cm. Ascending aorta is normal in size, measuring 2.8 cm. PULMONIC VALVE: Normal thickness and mobility. No stenosis. No regurgitation. PERICARDIUM: No evidence of pericardial effusion. IVC: Collapses with inspirations. IVC is normal in size. PLEURA: CONCLUSION: 1. Mild concentric left ventricular hypertrophy with normal systolic function. Estimated LVEF is 55 to 60%. 2. Normal right ventricular size and systolic function. 3. No significant valvular dysfunction. 4. Normal right-sided pressures. Adult Echocardiography Procedure Report Left Ventricle LVEDD (3.7 - 5.6 cm): 2.92 cm LVESD (2.2 - 4.0 cm): 2.15 cm LVIVS thickness (0.6 - 1.2 cm): 1.37 cm LVPW thickness (0.5 - 1.0 cm): 1.07 cm e': 0.05 m/s E - e': 16.60 LVOT Max Gradient: 7.12 mm[Hg] LVOT Area (cm2): 1.33 m/s Peak Velocity (LVOT): 1.33 m/s Mean Velocity (LVOT): 1.02 m/s LVOT Diameter 1.98 cm Left Atrium LA Volume Index (2D A2C): 24.28 ml/m2 Left Atrium Systolic Dimension: 3.56 cm Mitral Valve MV E to A Ratio: 0.69 Mitral Valve A-Wave Peak Velocity: 1.29 m/s Mitral Valve E-Wave Peak Velocity: 0.89 m/s Right Ventricle Aorta AO Root Diam: 3.02 cm Ascending Ao Diam: 2.82 cm Aortic Valve AoV Area (Peak Keyshawn): 3.26 cm2, 3.26 cm2 AoV Area (VTI): 3.38 cm2, 3.38 cm2 Peak Velocity(Antegrade Flow): 1.26 m/s Peak Gradient(Antegrade Flow): 6.36 mm[Hg] Mean Velocity(Antegrade Flow): 0.99 m/s Mean Gradient(Antegrade Flow): 4.24 mm[Hg] Velocity Time Integral: 32.66 cm Tricuspid Valve Peak Velocity (Regurgitant Flow): 2.64 m/s Pulmonic Valve Peak Gradient: 2.70 mm[Hg], 3.19 mm[Hg] Right Atrium Right Atrium Systolic Pressure: 35.20 ml, 35.20 ml Dictated by: Rohit Sesay M.D. on 02/01/2025 at 17:48 Approved by: Rohit Sesay M.D. on 02/01/2025 at 17:52 Dictated By: ROHIT SESAY Signed By: 02/01/251753 DD/ 51 TD/TT: [place] Operator:PROF CHEM 8 (BAS METB) Reviewed date:11/07/2024 03:12:53 PM Interpretation: Performing Lab: Notes/Report: [facility] ,Nexgsx202574-099 mmol/LPotassium3.23.5-5.1 mmol/MUhynrmby49660-834 mmol/LCarbon Jingwwd42.721.0-32.0 mmol/LAnion Gap11.2Zkqqcvl30389-086 mg/dLBlood Urea Akicactd17.07.0-18.0 mg/dLCreatinine0.610.55-1.02 mg/dLEstimated GFR ( Laureen>60>=60 mL/min/1.73m 2Estimated GFR (Non- Gely>60>=60 mL/min/1.73m 2BUN Creatinine Ratio29.6Icplqpo8.48.5-10.1 mg/dLPerforming Lab:see noteML - [facility] LBCBC AUTO DIFF Reviewed date:11/07/2024 03:12:53 PM Interpretation: Performing Lab: Notes/Report: [facility] ,White Blood Count12.94.0-11.0 10 3/uLRed Blood Count4.144.20-5.40 10 6/uL Wtcatzgekw69.912.0-16.0 g/kNXoeiihxnic03.536.0-48.0 %Mean Corpuscular Imehjc89.0 81.0-99.0 fLMean Corpuscular Supdgwuhov91.226.7-34.0 pgMean Corpuscular HGB Conc 33.529.9-35.2 g/dLRed Cell Distribution Width13.011.0-15.0 %Platelet Qeeva772 150-450 10 3/uLMean Platelet Apbdqi64.49.5-13.5 fLNeutrophils Percent Auto92.1 43.0-75.0 %Lymphocytes Percent Auto2.620.5-60.0 %Monocytes Percent Auto4.71.7- 12.0 %Eosinophils Percent Auto0.00.9-7.0 %Basophils Percent Auto0.10.2-2.0 % Immature Granulocytes Pct Auto0.50.0-0.5 %Neutrophils Absolute Auto11.81.4-6.5 10 3/uLLymphocytes Absolute Auto0.31.2-3.8 10 3/uLMonocytes Absolute Auto0.60.3- 0.8 10 3/uLEosinophils Absolute Auto0.00.0-0.7 10 3/uLBasophils Absolute Auto0.0 0.0-0.1 10 3/uLImmature Granulocytes Abs Auto0.060.00-0.03 10 3/uLPerforming Lab:see noteML - [facility] Reason For Referral Diagnosis 1 Venous reflux (I87.2 ) Referral Organization [facility] Referring Provider First Name Ron Referring Provider Last Name [facility] Referring Provider [facility] kamala Referred Provider Hilario Rowland Referred Provider Specialty Vascular Moody craig Referral Priority Routine Reason Recurrent diarrhea Diagnosis 1 Gastroenteritis (K52 .9) Referral Organization [facility] Referring Provider First Name Ron Referring Provider Last Name Marci Referring Provider [facility] kamala Referred Provider Davon Del Rosario Referred Provider Specialty General Surg tracey Referral Priority Routine Medications Medication SIG (Take, Route, Frequency, Duration) Notes Start Date End Date Status Gemfibrozil 600 MG TAKE 1 TABLET BY TWICE A DAY FOR CHOLESTEROL; Duration: 30 days ActiveMulti For Her -as directed OrallyActiveCompressor/Nebulizer -as directed 5ActiveEzetimibe 10 MGTAKE 1 TABLET BY MOUTH EVERY DAY FOR 90 DAYS; Duration: 90ActiveCompression Stocking Below Knee 20-30mmHg -Wear 1 pair daily, take off at bedtime. DX I87.2; Duration: 30 days5ActiveNamenda XR 7 MG1 capsule Orally Once a day; Duration: 14 days5ActivePantoprazole Sodium 40 MGTAKE 1 TABLET BY MOUTH EVERY DAY Orally bid; Duration: 90 daysActive Albuterol Sulfate (2.5 MG/3ML) 0.083%3 mL as needed Inhalation every 6 hrs 5ActiveProlia 60 MG/MLas directed SubcutaneousActiveDicyclomine HCl 20 MG1 tablet Orally QID; Duration: 30 days5ActiveBreo Ellipta 100-25 MCG/ACTINHALE 1 PUFF BY MOUTH ONCE DAILY 30; Duration: 90ActiveSpironolactone 100 MG1 tablet Orally Once a day; Duration: 4 days5Active Immunizations Vaccine Route Administration Date Status Comme nts Flu, Fluad (06841) 65 yrs and older, single-dose syringe (7081-1810) IM Intramuscular 08/07/2025 Administered Flu, Fluad (47371) 65 yrs+, single-dose syringe (8761-9215)IM Intramuscular 3Administered Social History Tobacco Use: Social History Observation Description Date Details (start date - stop date) Former Smoker NA - 11/07/2024 Tobacco Control (Standard) Question Answer Notes Tobacco use: Former smoker When did you stop smoking?11/07/2024 Problems Problem Type SNOMED Code ICD Code Onset Dates Problem Status W/U Status Risk Notes Problem COPD - Chronic obstr uctive pulmonary disease (12921761) COPD (chronic obstructive pulmonary disease) (J44.9) ActiveconfirmedProblemGastroesophageal reflux disease (942653467)GERD (gastroesophageal reflux disease) (K21.9)ActiveconfirmedProblemEdema (10654370) Edema (R60.9)ActiveconfirmedProblemDementia (02159848)Dementia (F03.90)Active confirmedProblemAcute exacerbation of chronic obstructive airways disease (905194920)COPD exacerbation (J44.1)ActiveconfirmedProblemDiverticulitis (07777267)Diverticulitis (K57.92)ActiveconfirmedProblemPeripheral venous insufficiency (54765760)Venous reflux (I87.2)ActiveconfirmedProblemDisorder of taste (112524209)Taste disorder (R43.9)ActiveconfirmedProblem hypercholesterolemia (disorder) ([id number])Hypercholesteremia (E78.00)Active confirmedProblemPure hypercholesterolemia (544343669)Pure hypercholesterolemia, unspecified (E78.00)ActiveconfirmedProblemImaging result abnormal ([id number]) Abnormal findings on diagnostic imaging of other specified body structures (R93.89)ActiveconfirmedProblemDisease caused by Severe acute respiratory syndrome coronavirus 2 (disorder) (119245011)COVID (U07.1)Activeconfirmed Vital Signs Heart Rate 83 /min 11/15/2024 Qbqfkqlzulv28.1 degrees Eyhugejxla67/10/2003Wwfuulgy89 %11/15/2024lood pressure xavfxfxnz54 mm Hg09/10/20250810Qqcikv93 in09/10/2025lood pressure ometfzoz270 mm Hg09/10/20256871Ardfwa628.2 lbs111/10/2024BMI23.81 kg/m209/10/2025 Procedures Procedure Date Ordered Date Performed Result Body Sit e CARDIO Echocardiogram 12/31/2024 N/A Encounters Encounter Location Date Provider Diagnosis [address] [place] [address] 01/22/2025 Ron Hoy Encounter for Medica re annual wellness exam Z00.00 ; Encounter for screening for osteoporosis Z13.820 ; Pure hypercholesterolemia, unspecified E78.00 and Other abnormal glucose R73.[address] [address] 11/15/2024 Ron Hoy COPD (chronic obstru ctive pulmonary disease) J44.9 and Acute bronchitis, unspecified organism J20.[address] [address] 12/31/2024 Ron Hoy Edema R60.[address] [address] 05/09/2025 Ron Hoy Edema R60.9 and GERD (gastroesophageal reflux disease) K21.[address] [address] 07/17/2025 Ron Hoy Edema R60.[address] [address] 08/07/2025 Ron Hoy Edema R60.9 and [employer] unter for immunization Z23 [address] [address] 08/16/2025 Ron Hoy Diverticulitis K57.[address] [address] 09/10/2025 Ron Hoy Gastroenteritis K52. 9 ; Hip pain, acute, right M25.551 and Dementia F03.90 [facility] [address] [place] [facility] [place] [address] 08/07/2025 [facility] [place] [facility] [place] [address] 08/15/2025[facility] [place] [facility] [place] [address]/05/2025[facility] [place] [facility] [place] [address]/02/2025[facility] [place] [facility] [place] [address]/Doug [facility] [facility] [place] [address]/[facility] [place] [facility] [place] [address]/08/2025 [facility] [place] [facility] [place] [address]/11/2024Doug HoyVenous reflux I87.2[address] [address] [place] [place] [address]/[facility] [place] [facility] [place] [address]/[facility] Wellness examination Z00.00[address] [place] [address]/01/2025[facility] [place] [facility] [place] [address]/Doug [facility] Assessments Encounter Date Diagnosis (ICD Code) Assessment Notes Treatment Notes Treatment Clinical Notes Section Notes 11/15/2024 COPD (chronic obstructive pulmon roxane disease) (ICD-10 - J44.9) 12/31/2024Edema (ICD-10 - R60.9)05/09/2025GERD (gastroesophageal reflux disease) (ICD-10 - K21.9)05/09/2025Edema (ICD-10 - R60.9)07/17/2025Edema (ICD-10 - R60.9)Needs Reflux results - if neg - neds CT pino djzapc4201/22/2025Encounter for screening for osteoporosis (ICD-10 - Z13.820)01/22/2025Encounter for Medicare annual wellness exam (ICD-10 - Z00.00)08/07/2025Edema (ICD-10 - R60.9)08/16/2025 Diverticulitis (ICD-10 - K57.92)09/10/2025Gastroenteritis (ICD-10 - K52.9)Get plenty of rest. Stay hydrated by sucking on ice chips or taking small sips of water. You can also try drinking clear soda, clear broths or noncaffeinated sports drinks. Stop eating solid foods for a few hours to let your stomach settle. East back into eating by eating bland, fice-hc-isxhxd foods like crackers, toast, gelatin, bananas, rice and chicken. Try to avoid foods/substances including dairy products, caffeine, alcohol, nicotine and fatty or highly seasoned foods. Medications such as ibuprofen or tylenol can make your stomach more upset, so use sparingly if at all. Also avoid bwoh-tro-ambfavk anti-diarrheal medications because it can make it harder for your body to eliminate the virus.09/10/2025Hip pain, acute, right (ICD-10 - M25.551) 10/29/2024Wellness examination (ICD-10 - Z00.00)08/07/2025Venous reflux (ICD-10 - I87.2)09/10/2025Dementia (ICD-10 - F03.90)01/22/2025Pure hypercholesterolemia, unspecified (ICD-10 - E78.00)08/07/2025Encounter for immunization (ICD-10 - Z23)11/15/2024ute bronchitis, unspecified organism (ICD-10 - J20.9)Rest and drink more liquids, especially water. You may use a humidifier or vaporizer to help keep the drainage moist. Hrkc-brz-eisvhod Nasal Saline may help the stuffy and runny nose. Use Ibuprofen and or Tylenol as needed for fever, chills, body aches or pain. Children 5 years old should not be given tmmg-ejp-hzgkjol cough and cold medications such as guaifenesin and dextromethorphan. If you're over age 5, you may try zrre-dpt-ysyyxfx cold medications such as guaifenesin and dextromethorphan, or multi-symptom cold reliever such as Dayquil to help reduce the symptoms. Antibiotics have been prescribed. You should take these until completed and follow the directions. Antibiotics can sometimescause upset stomach, and in rare cases, serious allergic reactions or serious gastrointestinal problems. If you start having severe abdominal pain, severe vomiting, or bloody diarrhea, you should be reevaluated by your physician or urgent care immediately. Follow up with your Primary Care Provider or return to clinic if symptoms do not improve within 3-5 days. If you develop severe symptoms such as shortness of breath, repeated vomiting, coughing up blood, or chest pain you should go to the emergency room or call [phone] abnormal glucose (ICD-10 - R73.09) Plan Of Treatment Pending Test Test Name Order Date CMP (COMPLETE METABOLIC PANEL) 3 CMP (COMPLETE METABOLIC PANEL) 4 HEMOGLOBIN A1C (GLYCO) 09/06/2023 IRON, TOTAL 09/06/2023 LIPID PANEL (CHOL/TRIG/HDL/LDL) 09/06/20 CBC WITH DIFF 09/06/2023 VITAMIN D, 25 LEVEL (TOTAL) 09/06/2023 CARDIO Echocardiogram 12/31/2024 FECAL OCCULT BLOOD 10/29/2024 GLYCOHEMOGLOBIN A1C 10/29/2024 LIPID PROFILE 10/29/2024 CT CHEST W CON 06/09/2023 VC VENOUS REFLUX APPLE LMT 05/09/2025 XR DEXA BONE DENSITY 01/22/2025 THYROID PANEL (T4/TSH/FREE T3) 3 THYROID PANEL (T4/TSH/FREE T3) 4 XR HIP RT 2 3V W PELVIS 09/10/2025 XR CHEST COMP MIN 4V 06/17/2023 XR acute abdomen series 09/10/2025 Insurance Providers Payer Name Payer Address Payer Phone Subscriber Number Group Number Insured Name Patient Relationship to Insured Coverage Start Date Coverage End Date [employer] [address] [place] [phone] [id number] Antonio Thomas - patient is the [id number] 2021 Medical (General) History Medical History History ICD Code COVID-19 U07.1 Hydronephrosis N13.30 Shingles B02.9 Liver mass R16.0 Contusion of thorax S20.20XA Contusion of thorax S20.20XA COPD, mild J44.9 Hemangioma D18.00 Dyspnea R06.00 Osteoporosis M81.0 Hypercholesteremia E78.00 Duodenitis K29.80 GERD (gastroesophageal reflux disease) K 21.9 PUD (peptic ulcer disease) K27.9 Pulmonary embolism I26.99 Osteoarthritis M19.90 Degenerative joint disease M19.90 Lumbar radiculopathy M54.16 Surgical History Surgery Date(Month/Year) hernia repair C-Sections x2Left knee replacementGallbladderAppendixHospitalization History Reason Date(Month/Year) Influenza 2023
--- NOTE | 2025-09-10 12:11 | XR_ITS ---
The [address] [address] Patient Name: MIYA THOMAS MRN: [id number] date: 1945 Sex: F Assigned Patient Location: [facility] Current Patient Location: [facility] Accession/Order Number: [id number] Exam Date: 09/10/2025 12:18 Report Date: 09/10/2025 15:21 At the request of: LONI ROSALES MD Procedure: XR acute abdomen series XR acute abdomen series 09/10/2025 12:26 PM SIGNS AND SYMPTOMS: ^K52.9 Gastroenteritis PROTOCOL: Frontal radiographs of the chest, abdomen, and pelvis COMPARISON: 11/05/2024 FINDINGS: The trachea is midline. Atherosclerotic changes are noted in the thoracic aorta. The heart and mediastinal structures are within normal limits. The lung parenchyma is clear. The bony thorax is intact. Degenerative changes are noted in the shoulders. There is a dextro convex curvature of the thoracic spine with a levoconvex curvature of the lumbar spine. There is a nonobstructive bowel gas pattern. There is a moderate amount stool within the colon. No radiographic evidence of free air. XR/XR acute abdomen series IMPRESSION: No acute cardiopulmonary pathology. There is a moderate amount stool within the colon. No bowel obstruction or free air. Impression dictated by: Levy Morales M.D. 09/10/2025 3:21 PM Dictation Location: [place] [address] Electronically authenticated by: [id number] Y Date: 09/10/2025 15:21
--- NOTE | 2025-09-10 12:11 | XR_ITS ---
[address] [address] Patient Name: MIYA THOMAS MRN: [id number] date: 1945 Sex: F Assigned Patient Location: [facility] Current Patient Location: [facility] Accession/Order Number: [id number] Exam Date: 09/10/2025 12:18 Report Date: 09/10/2025 15:22 At the request of: LONI ROSALES MD Procedure: XR hip RT 2V w/ pelvis XR hip RT 2V w/ pelvis 09/10/2025 12:26 PM SIGNS AND SYMPTOMS: ^M25.551 Acute right hip pain PROTOCOL: Frontal radiograph of the pelvis with frontal and frog-leg views of the right hip COMPARISON: None FINDINGS: Clinical history of the pelvis is intact. Degenerative changes are noted in the thoracolumbar spine and sacroiliac joints. The right hip joint space is preserved. There is no fracture or dislocation. Vascular calcifications are present in the pelvis. XR/XR hip RT 2V w/ pelvis IMPRESSION: No fracture or dislocation. The right hip joint space is preserved. Impression dictated by: Levy Morales M.D. 09/10/2025 3:22 PM Dictation Location: [place] [address] Electronically authenticated by: [id number] Y Date: 09/10/2025 15:22
--- OUTSIDE RECORDS SUMMARY | 2025-09-10 12:11 | XMS_ITS | CCD ---
Author Organization [facility] Care Team Providers Care Turn Down Worker Name Role Phone BOBBY, DR IVEY Admitting [...] Attending Unavailable Loni Covarrubias MD Attending Provider [phone] Loni Covarrubias Attending Unavailable Loni Covarrubias Admitting Unavailable CATALINO LONDON Attending UnavailCATALINO Weaver Referring Unavaila LONI Stephens Primary Care Unavailable MARCY ESTRELLA Attending Unavailable LONI COVARRUBIAS Primary Care Unavailable Allergies Allergy ClassificationReported Allergen(s)Allergy TypeDate of OnsetReaction(s) Facility (2 sources)black walnut pollen extract; Translations: [NEIXHMG-SQA-XJL REDUCTASE INHIBITORS]Drug Xtjifph57-65-3711Xed [facility] Repository (10 sources)HMG-CoA reductase inhibitorDrug Niucncy60-61-3816SkvpsrtNcldbnlgn Clinic Medications Current Medications MedicationDrug Class(es)DatesSig (Normalized)Sig (Original)[id number] 200 actuat albuterol 0.09 mg/actuat metered dose inhaler (10 sources)beta2-Adrenergic AgonistStart: 69-50-1394xoqj 2 puff(s) by inhalation every six hours as neededalbuterol HFA (PROAIR HFA) 90 mcg/actuation inhaler 2 Puffs every 6 hours as needed. Take as directed 11/12/2020 Active Comment on above:2 Puffs every 6 hours as needed. Take as directedascorbic acid 500 mg oral tablet (13 sources)Vitamin CStart: 82-25-6871yfxubsrd acid, vitamin C, (VITAMIN C) 500 mg tablet 11/07/1999 ActiveAscorbic Acid (Vitamin C) 500 MG capsule Vitamin C Activeaspirin 81 mg delayed release oral tablet (13 sources)Platelet Aggregation Inhibitor, Nonsteroidal Anti-inflammatory Drug Start: 62-42-6214byndeyw, enteric coated (ASPIRIN, ENTERIC COATED) 81 mg EC tablet 11/07/1989 Activebenoxinate hydrochloride 4 mg/ml / fluorescein sodium 3 mg/ml ophthalmic solution (3 sources)Diagnostic DyeStart: 03-06-2025 End: 55-37-5745xlcosgfwald-benoxinate 0.3-0.4 % 1 drop (FLURESS)Start: 03-05-2024 End: 52-16-4225qqtnnhqlots-benoxinate 0.25-0.4 % 1 Drop (FLURESS)Start: 02-28-2023 End: 00-88-0019cptpdmuknhc-benoxinate 0.25-0.4 % 1 Drop (FLURESS)biotin 2.5 mg oral capsule (13 sources)Start: 21-69-5230Dggrng 2,500 mcg cap 11/07/1989 ActiveBiotin 2500 MCG chewable tablet Activecalcium carbonate 1250 mg / cholecalciferol 0.01 mg oral tablet (1 source)Vitamin DStart: 63-97-4987Bexykeq Carbonate-Vitamin D3 (Calcium 500 With D) 500 mg(1,250mg) -400 unit Tablet Active 1200 MG PO Daily December 23, 2017 12:00amCalcium Citrate / Vitamin D (2 sources)Calcium Citrate-Vitamin D (CALCIUM CITRATE + D PO) Take by mouth ActiveCALCIUM CITRATE-VITAMIN D3 ORAL (10 sources)Start: 74-96-5339SSGPKVA CITRATE-VITAMIN D3 ORAL 11/07/1989 Active Start: 57-02-6463PLGFJYR CITRATE-VITAMIN D3 ORALcholecalciferol 0.025 mg oral tablet (1 source)Vitamin DStart: 79-55-1964afrj 1 tablet by mouth once daily Cholecalciferol (Vitamin D3) (Vitamin D3) 1,000 unit Tablet Active 1000 UNIT PO Daily December 23, 2017 12:00amchondroitin sulfates 400 mg / glucosamine hydrochloride 500 mg oral tablet (13 sources)Start: 75-70-5006fjsh 1 tablet by mouth once dailyGlucosamine- Chondroitin 500-400 mg Tablet Active 1 TAB PO Daily December 23, 2017 12:00am Start: 37-99-8409wuuamnnoygj-chondroitin 500-400 mg capsule 08/07/1990 Active take 1 tablet by mouth in the morning, then take 1 tablet by mouth in the evening, then take 1 tablet by mouth at bedtimeglucosamine-chondroitin 500-400 MG tablet Take 1 tablet by mouth in the morning and 1 tablet in theevening and 1 tablet before bedtime. Activedenosumab (12 sources)RANK Ligand InhibitorStart: 84-33-1340vzjhkhyaw (PROLIA SUBCUTANEOUS) 07/08/2020 ActiveStart: 70-88-4198fasmqlmew (PROLIA SUBCUTANEOUS) Denosumab (PROLIA SC) Inject under the skin Activedocusate sodium 100 mg oral capsule (13 sources)Start: 90-26-0686phozwdne sodium (COLACE) 100 mg capsule 11/07/1989 Activeezetimibe 10 mg oral tablet (12 sources)Dietary Cholesterol Absorption InhibitorStart: 60-25-7752rwjq 1 tablet by mouth once dailyezetimibe (ZETIA) 10 mg tablet Take 10 mg by mouth once daily. 07/05/2020 ActiveComment on above:Take 10 mg by mouth once daily. fish oil concentrate (Haxtun-3) 300 MG capsule (2 sources)fish oil concentrate (Haxtun-3) 300 MG capsule Take 550 mg by mouth Daily Ikbxzp62 actuat fluticasone furoate 0.1 mg/actuat / vilanterol 0.025 mg/actuat dry powder inhaler (13 sources)Corticosteroid, beta2-Adrenergic AgonistStart: 12-06-3843DAIG ELLIPTA 100-25 mcg/dose inhaler 09/07/2020 ActiveStart: 94-86-4829Wzzsyithnbi Furoate-Vilanterol (Breo Ellipta) 100-25 mcg/dose Blister With Device Active 1 INH INHALATION Q24H December 23, 2017 12:00amFluticasone Furoate-Vilanterol (Breo Ellipta) 100-25 MCG/ACT aerosol powder Inhale Activefolic acid 0.4 mg / vitamin b12 1 mg sublingual tablet (4 sources)Vitamin Z89hgybyafzianhrm/folic acid (VITAMIN T82-QQTIW ACID) 1,000- [address] by sublingual route. Activegabapentin 100 mg oral capsule (11 sources)Anti-epileptic AgentStart: 17-03-6804yehy 1 capsule by mouth once daily as neededgabapentin (NEURONTIN) 100 mg capsule Take 1 capsule by mouth once daily as needed (for sciatica) for up to 180 days. 11/12/2020 ActiveComment on above:Take 1 capsule by mouth once daily as needed (for sciatica) for up to 180 days.gemfibrozil 600 mg oral tablet (13 sources)Peroxisome Proliferator Receptor alpha AgonistStart: 38-41-8731nzqo 1 tablet by mouth twice dailyGemfibrozil 600 mg Tablet Active 600 MG PO Twice daily December 23, 2017 12:00amStart: 37-23-0828akyu 1 tablet by mouth once dailygemfibrozil (LOPID) 600 mg ORAL tablet Take one(1) tablet two(2) times daily. 0 09/03/2010 ActiveComment on above:Take one(1) tablet two(2) times daily.ibandronic acid 150 mg oral tablet (1 source)BisphosphonateStart: 33-27-5965zusj 1 tablet by mouth every month Ibandronate 150 mg Tablet Active 150 MG PO every month December 23, 2017 12:00ammecobalamin 1 mg chewable tablet (10 sources)Start: 62-13-4289wzcvvdyasdf, vitamin B12, 1,000 mcg chew 11/07/2014 ActiveMultiple Vitamin (multivitamin) tablet (2 sources)take 1 tablet by mouth once dailyMultiple Vitamin (multivitamin) tablet Take 1 tablet by mouth Daily Activemultivit,iron,minerals/lutein (CENTRUM SILVER ULTRA WOMEN'S ORAL) (10 sources)Start: 18-66-1466byrdaeaj,iron,minerals/lutein (CENTRUM SILVER ULTRA WOMEN'S ORAL) 11/07/1999 ActiveStart: 95-56-4032upxcooxo,iron,minerals/lutein (CENTRUM SILVER ULTRA WOMEN'S ORAL)Multivitamin Tablet (1 source)Start: 54-82-4477ciua 1 tablet by mouth once dailyMultivitamin Tablet Active 1 TAB PO Daily December 23, 2017 12:00amOmega 8-Gnx-Hja-Fish Oil (Fish Oil) 1,000 mg (120 mg-180 mg) Capsule (1 source)Start: 74-23-9769Geagh 1-Cri-Gvg-Fish Oil (Fish Oil) 1,000 mg (120 mg- 180 mg) Capsule Active 500 MG PO Daily December 23, 2017 12:00amomega 5-elo-ezj-fish oil (FISH OIL) 100-160-1,000 mg cap (10 sources)omega 3-wfh-pej-fish oil (FISH OIL) 100-160-1,000 mg cap Fish Oil Activeomega 0-lxa-ykg-fish oil (FISH OIL) 100-160-1,000 mg cap Fish Oil 0 Active Comment on above:Fish Oilpantoprazole 40 mg delayed release oral tablet (13 sources)Proton Pump InhibitorStart: 40-81-4844dnaw 1 tablet by mouth once dailypantoprazole (PROTONIX) 40 mg ORAL tablet Take one(1) tablet daily. 0 09/03/2010 ActiveComment on above:Take one(1) tablet daily.phenylephrine hydrochloride 25 mg/ml ophthalmic solution (3 sources)alpha-1 Adrenergic AgonistStart: 03-06-2025 End: 24-94-2132ERTZGQvdashlf 2.5 % 1 drop (AK-DILATE, HENNA-SYNEPHRINE)Start: 03-05-2024 End: 88-53-3302VXUJHJgvptuyz 2.5 % 1 Drop (AK-DILATE, HENNA-SYNEPHRINE)Start: 02-28-2023 End: 54-68-9596PMFJZEmbouczh 2.5 % 1 Drop (AK-DILATE, HENNA-SYNEPHRINE) polyethylene glycol 3350 99201 mg powder for oral solution (2 sources)Osmotic Laxativepolyethylene glycol, PEG, 3350 (Miralax) 17 g packet Take by mouth Activesimethicone 125 mg oral capsule (12 sources)Start: 25-42-4819Xlrjbsmcvub 125 mg cap 11/07/2014 Activesimethicone (Mylicon) 125 MG chewable tablet 1 (one) time each day at the same time Active tropicamide 10 mg/ml ophthalmic solution (3 sources)AnticholinergicStart: 03-06-2025 End: 05-56-8182bxkkvoakkrq 1 % 1 drop (MYDRIACYL)Start: 03-05-2024 End: 78-13-5587srutatcjqsu 1 % 1 Drop (MYDRIACYL)Start: 02-28-2023 End: 95-28-4889vbnaqnjcsaw 1 % 1 Drop (MYDRIACYL)vitamin b12 1 mg oral tablet (3 sources)Vitamin E95Ezxxo: 31-11-4594zmnm 1 tablet by mouth once daily in the eveningCyanocobalamin (Vitamin B-12) (Vitamin B-12) 1,000 mcg Tablet Active 1000 MCG PO Every evening December 23, 2017 12:00amvitamin e 90 mg oral capsule (13 sources)Start: 36-13-5390vrgi 1 capsule by mouth once daily at bedtime Vitamin E 200 unit Capsule Active 200 UNIT PO Daily at bedtime December 23, 2017 12:00amStart: 45-91-6745dyxbboa E mixed 400 unit cap 11/07/1989 Activetake 1 capsule by mouth once dailyvitamin E 180 MG (400 UNIT) capsule Take 180 mg by mouth Daily Active Completed/Discontinued Medications MedicationDrug Class(es)DatesSig (Normalized)Sig (Original)ketorolac tromethamine 5 mg/ml ophthalmic solution (2 sources)Nonsteroidal Anti-inflammatory Drug, Cyclooxygenase InhibitorStart: 11-19-2020 End: 01-49-3004hlXXTonrh (ACULAR) 0.5 % ophthalmic solution USE DIRECTED BY PHYSICIAN, IN OPERATIVE EYE, BEGINNING ONE DAY AFTER SURGERY 1 Bottle 0 12/03/2020 02/28/2023 Discontinued (Course of therapy completed)Comment on above:USE DIRECTED BY PHYSICIAN, IN OPERATIVE EYE, BEGINNING ONE DAY AFTER SURGERYmeloxicam 7.5 mg oral tablet (3 sources)Nonsteroidal Anti-inflammatory DrugStart: 02-16-2024 End: 57-59-7981ckko 1 tablet by mouth once dailymeloxicam (MOBIC) 7.5 mg tablet Take 1 tablet by mouth once daily. 30 tablet 02/16/2024 03/17/2024 Comment on above:Take 1 tablet by mouth once daily.naproxen 250 mg oral tablet (5 sources)Nonsteroidal Anti-inflammatory DrugStart: 01-31-2024 End: 51-40-1921mttp 1 tablet by mouth twice daily as needednaproxen (NAPROSYN) 250 mg tablet Indications: Pain in right hip Take 1-2 tablets by mouth two times a day as needed. for pain. Take with food. 60 tablet 01/31/2024 03/01/2024 ExpiredComment on above:Take 1-2 tablets by mouth two times a day as needed. for pain. Take with food.prednisoLONE acetate 10 mg/ml ophthalmic suspension (2 sources)CorticosteroidStart: 11-19-2020 End: 10-10-0830fsfowhvmPPNQ acetate (PRED FORTE, ECONOPRED PLUS) 1 % ophthalmic suspension USE DIRECTED BY PHYSICIAN, IN OPERATIVE EYE, BEGINNING ONE DAY AFTER SURGERY 1 Bottle 0 12/03/2020 02/28/2023 Discontinued (Course of therapy completed)Comment on above:USE DIRECTED BY PHYSICIAN, IN OPERATIVE EYE, BEGINNING ONE DAY AFTER SURGERY Problems Active Problems Problem ClassificationProblemDateDocumented DateEpisodic/ChronicCataract (4 sources)Bilateral pseudophakia; Translations: [Presence of intraocular lens] Onset: 42-94-9300YebvgcdFlbqbmn obstructive pulmonary disease and bronchiectasis (13 sources)Chronic obstructive pulmonary disease, unspecified; Translations: [Chronic obstructive lung disease]Onset: 977085-00-6662QbyxyddLpdzqgjqb of lipid metabolism (14 sources)Pure hypercholesterolemia, unspecified; Translations: [Hyperlipidemia, unspecified]Onset: 454033-30-0100XcmsnghPyvljbrjll disorders (12 sources)Gastroesophageal reflux disease; Translations: [Gastro-esophageal reflux disease without esophagitis]Onset: hronic Inflammation; infection of eye (except that caused by tuberculosis or sexually transmitteddisease) (5 sources)Keratoconjunctivitis sicca; Translations: [Keratoconjunctivitis sicca, not specified as Sjogren's, bilateral]Onset: 10-62-2344BfocyymQcyis disorders and dislocations; trauma-related (2 sources)Acetabular labrum tear; Translations: [Other articular cartilage disorders, unspecified hip]53-75-9800XkpvatfAksvqlxdcrl deficiencies (1 source)Vitamin D deficiency, unspecified; Translations: [VITAMIN D DEFICIENCY UNSPECIFIED]Onset: 45-77-6662JavvabjLyhkbdzgrvpphn (1 source)Osteoarthritis of right hip joint; Translations: [Unilateral primary osteoarthritis, right hip]16-40-3659ZwuqdnuHcdqbbqjluia (4 sources)Age-related osteoporosis without current pathological fracture; Translations: [AGE-REL OSTEOPOR W/OCURR PATH FX]Onset: 40-25-6113JzqhegmIlltm congenital anomalies (2 sources)Acral keratosis; Translations: [Other specified congenital malformations of skin]66-29-3635LkxiobkEezve connective tissue disease (2 sources)Disorder of rotator cuff; Translations: [Unspecified disorder of synovium and tendon, right shoulder]23-57-1650FtamrfvrMpkom connective tissue disease (1 source)Impingement syndrome of right shoulder region; Translations: [Impingement syndrome of right shoulder]84-53-7589YntbxgomFomec connective tissue disease (4 sources)Pain in right foot; Translations: [Pain in right foot]10-02-2024 EpisodicOther eye disorders (3 sources)Bilateral vitreous degeneration of eyes; Translations: [Vitreous degeneration, bilateral]ChronicOther eye disorders (1 source)Bilateral vitreous floaters; Translations: [Other vitreous opacities, bilateral]ChronicOther eye disorders (1 source)Vitreous degeneration, bilateral; Translations: [Vitreous degeneration, bilateral]Onset: 14-21-9859LafzbrdKgjhj lower respiratory disease (1 source)Other nonspecific abnormal finding of lung field; Translations: [OTH NONSPECIFIC ABN FIND LNG FIELD]Onset: 88-45-0854HdiugljlFarnq non-traumatic joint disorders (1 source)Pain in right hip joint; Translations: [Pain in right hip]01-31-2024 EpisodicOther non-traumatic joint disorders (1 source)Pain in right shoulder; Translations: [Pain in joint, shoulder region] 64-03-7281BiygavwgSyacy skin disorders (2 sources)Callosity; Translations: [Corns and callosities]74-09-5288Uzbwptph Residual codes; unclassified (10 sources)Tobacco user; Translations: [Tobacco use]47-63-6624JpqihktdEfgfspbh codes; unclassified (1 source)Pain; Translations: [Pain, unspecified]24-44-3967PatovqmtKlswkzj detachments; defects; vascular occlusion; and retinopathy (8 sources)Retinal pigment epithelial abnormality; Translations: [Other specified retinal disorders]Onset: 58-66-1029YdcdzleZqcxomtjw-related disorders (4 sources)Nicotine dependence, cigarettes, uncomplicated; Translations: [NICOTINE DEPEND CIGARETTES UNCOMP]Onset: 47-08-5464CrfscfeWeijkopzznzm (3 sources)COUGH, UNSPECIFIED; Translations: [COUGH, UNSPECIFIED]Onset: 05-73-1169Nefsvpsdrtag (1 source)CONTACT W/AND (SUSP) EXPOS COVID-19; Translations: [CONTACT W/AND (SUSP) EXPOS COVID-19]Onset: 05-16-2022 Past or Other Problems Problem ClassificationProblemDateDocumented DateEpisodic/ChronicCalculus of urinary tract (4 sources)Calculus of kidney; Translations: [CALCULUS OF KIDNEY]Onset: 21-26-6174KadblrgzWdkbvvrvnr and other anemia (1 source)Anemia, unspecified; Translations: [ANEMIA UNSPECIFIED]Onset: 01-74-7128OtjmerteRtsarpfw mellitus without complication (1 source)Other abnormal glucose; Translations: [OTHER ABNORMAL GLUCOSE]Onset: 01-33-4369RonzrsjkTzmafjc and fatigue (4 sources)Other fatigue; Translations: [OTHER FATIGUE]Onset: 63-87-7686Edlvvfhd Other lower respiratory disease (1 source)Other forms of dyspnea; Translations: [OTHER FORMS OF DYSPNEA]Onset: 35-85-0658PoazbcrcQvvvx screening for suspected conditions (not mental disorders or infectious disease) (4 sources)Encounter for screening mammogram for malignant neoplasm of breast; Translations: [ENC SCR MAMMO MALIG NEOPLASM BREAST]Onset: 14-51-2363Tgevrvaq Pulmonary heart disease (1 source)Personal history of pulmonary embolism; Translations: [PERSONAL HISTORY PULMONARY EMBOLISM]Onset: 71-33-9589TpbhnngsBdxldbnz codes; unclassified (1 source)Family history of malignant neoplasm of trachea, bronchus and lung; Translations: [FAM HX MALIG NEOPLSM TRACH BRON LNG]Onset: 65-18-6743Lzsppyja Unclassified (1 source)COUGH, UNSPECIFIED; Translations: [COUGH, UNSPECIFIED]Onset: 05-12-2022 Results Test NameValueInterpretationReference RangeFacilityOCT MACULA CIRRUS OU (BOTH EYES)on 62-37-5602Ubklkkqsd ClinicRadiology Study observation (narrative) [facility] SouthAerobic Cultureon 44-08-6067Pdxilfr CultureORGANISM: Moraxella catarrhalis (O:MORCAT) Beta Lactamase Positive Quantity of Growth Heavy Growth Gram Stain Result 1+ Gram Positive Cocci in Pairs PERFORMED BY: [address] [address] PATHOLOGIST CUSTOMER SUPPORT SPECIALIST GWEN ABDUL M.D.[facility] Physician GroupComment on above: Performed By: #### GS, AERC #### [address] [address] USAGram Stainon 90-71-5471Ubmwddghzxd observation Gram stain Nom (Unsp spec)Gram Stain Result 1+ Gram Positive Cocci in Pairs 11/06/2024 1624 PAB PERFORMED BY: [address] [address] PATHOLOGIST CUSTOMER SUPPORT SPECIALIST GWEN ABDUL M.D.[facility] Physician GroupComment on above: Performed By: #### GS, AERC #### [facility] [address] [place] [address] USAGram stain microscopyOrdered By: Loni Covarrubias on 11-06-2024 Microscopic observation Gram stain Nom (Unsp spec)Gram stain microscopyEast [place] Regional HospitalCNPNon 35-88-8737ZFDNNsmtjskwi (INTMAL) NEVAEH THOMAS ([id number]) 1945 F Date Time Provider Department 04/23/24 MARCY ESTRELLA During your visit today, we recorded the following information about you: Victoria Watson 04/23/2024 11:01 AM Signed April from [facility] is calling Marcy Estrella DO today with concern regarding evaluation that was faxed on February 20. Requested provider's signature to be faxed with it. Please advise. Patient has been identified by name and birthdate. Duration of symptoms: N/A Person calling: April Call patient at: [phone] ext [phone] Was an appointment scheduled: No Closing statement: Results or non-symptom based questions: Thank you for calling [facility], your call will be returned within the next business day. Thank you, Victoria Watson Allergies As of Date: 04/23/2024 Noted Allergy Reaction QDJUQVI-RVG-CMX REDUCTASE INHIBIT*02/28/2023 16 - Unknown Date Reviewed: 03/27/2024 Reviewed by: Marcy Estrella DO - Fully Assessed Reason for Visit: Orders [681] Prescriptions as of 12/10/2024 - cyanocobalamin/folic acid (VITAMIN A39-NPNRI ACID) 1,000-[address] by sublingual [...] - BREO ELLIPTA 100-25 mcg/dose inhaler - glucosamine-chondroitin 500-400 mg capsule - mecobalamin, vitamin B12, 1,000 mcg chew - multivit,iron,minerals/lutein (CENTRUM SILVER ULTRA WOMEN'S ORAL) - Simethicone 125 mg cap - vitamin E mixed 400 unit cap - omega 5-uai-kud-fish oil (FISH OIL) 100-160-1,000 mg cap Fish Oil - pantoprazole (PROTONIX) 40 mg ORAL tablet Take one(1) tablet daily. - gemfibrozil (LOPID) 600 mg ORAL tablet Take one(1) tablet two(2) times daily. Problem List As Of Date 04/23/2024 Noted Resolved COPD (chronic obstructive pulmonary disease) (H* GERD (gastroesophageal reflux disease) [K21.9] HLD (hyperlipidemia) [E78.5] Tobacco abuse [Z72.0] Encounter Status:Closed by VICTORIA WATSON on 12/10/24[facility] 25-59-5576DXMALwcuun Visit (LOORRM) NEVAEH THOMAS ([id number]) 1945 F Date Time Provider Department 03/27/24 1:15 PM MARCY ESTRELLA During your visit today, we [...] As of Date: 03/27/2024 Noted Allergy Reaction DWLXOQC-PRF-BWE REDUCTASE INHIBIT*02/28/2023 16 - Unknown Date Reviewed: 03/27/2024 Reviewed by: Marcy Estrella DO - Fully Assessed Reason for Visit: Established Patient [175] Right Hip Pain [1554] Primary Visit Diagnosis: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] Other Visit Diagnosis: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 - gemfibrozil (LOPID) 600 mg ORAL tablet Take one(1) tablet two(2) times daily. Problem List As Of Date 03/27/2024 Noted Resolved COPD (chronic obstructive pulmonary disease) (H* GERD (gastroesophageal reflux disease) [K21.9] HLD (hyperlipidemia) [E78.5] Tobacco abuse [Z72.0] Encounter Status:Closed by MARCY ESTRELLA on 03/27/24NoAv[facility] HospitalXR Shoulder - right 3 Viewson 03-33-6986WQPXUOROBJ: MINIMAL DEGENERATIVE CHANGES RIGHT SHOULDER Marketing Sales Representative: [facility] Transcribe Date/Time: Feb 16 2024 2:48P Dictated by : MEHNAZ LOBATO MD This examination was interpreted and the report reviewed and electronically signed by: MEHNAZ LOBATO MD on Feb 16 2024 2:49PM [facility] DIVISION OF RADIOLOGY* * *Final Report* * * DATE OF [...] the aortic arch.. No other significant abnormality. DIVISION OF RADIOLOGYProvider, [facility] [place] - 02/16/2024 * * *Final Report* * [...] the aortic arch.. No other significant abnormality. IMPRESSION IMPRESSION: MINIMAL DEGENERATIVE CHANGES RIGHT SHOULDER Marketing Sales Representative: [facility] Transcribe Date/Time: Feb 16 2024 2:48P Dictated by : MEHNAZ LOBATO MD This examination was interpreted and the report reviewed and electronically signed by: MEHNAZ LOBATO MD on Feb 16 2024 2:49PM [facility] CenterRadiology Study observation (narrative)[facility] SouthXR Shoulder - right 3 ViewsOrdered By: [facility] Provider on 73-70-6741Omdzjbrnp ClinicXR Pelvis and Hip - right AP and Lateral frogon 39-88-6128PRFDDRJANP: Right hip grossly unremarkable. Marketing Sales Representative: [facility] Transcribe Date/Time: Jan 31 2024 2:13P Dictated by : PORFIRIO MURPHY MD This examination was interpreted and the report reviewed and electronically signed by: PORFIRIO MURPHY MD on Jan 31 2024 2:14PM [facility] DIVISION OF RADIOLOGY* * *Final Report* * * DATE OF [...] clips in the lower abdomen. DIVISION OF RADIOLOGYProvider, [facility] [place] - 01/31/2024 * * *Final Report* * [...] abdomen. IMPRESSION IMPRESSION: Right hip grossly unremarkable. Marketing Sales Representative: [facility] Transcribe Date/Time: Jan 31 2024 2:13P Dictated by : PORFIRIO MURPHY MD This examination was interpreted and the report reviewed and electronically signed by: PORFIRIO MURPHY MD on Jan 31 2024 2:14PM [facility] CenterRadiology Study observation (narrative)[facility] SouthXR Pelvis and Hip - right AP and Lateral frogOrdered By: [facility] Provider on 01-31-2024 [facility] SouthCALCIUMon 85-59-7036Amnozjc [Mass/Vol]9.4 mg/dLNormal8.5-10.1[facility] HospitalComment on above:Performed By: #### LAZARUS CRUZ #### [facility] [address] [place] [address] Dr. Lori MarionINEon 63-56-4274Dfqqfeizuv [Mass/Vol]0.64 mg/dLNormal 0.55-1.02[facility] HospitalComment on above:Performed By: #### LAZARUS CRUZ #### [facility] [address] [place] [address] Dr. Lori ClaireGFR-AF CITIZEN [place]>60Normal>=60[facility] Community HospitalComment on above:Performed By: #### LAZARUS CRUZ #### [facility] [address] [place], [place] [address] Dr. Lori ClaireGFR-NON AF CITIZEN OF [place]>60Normal>=60[facility] HospitalComment on above:Performed By: #### LAZARUS CRUZ #### [facility] [address] [address] [address] Lori BautistaAZ LUNG CANCER SCREENINGon 48-67-7611ZC LUNG CANCER SCREENING EXAMINATION: CT LUNG CANCER [...] Electronically authenticated by: VERONICA DUNCAN Date: 2022-09-10 14:57NormalThe Pome[facility] HospitalINSULINon 17-05-6998Tagrlml7.3 uIU/mLNormal2.6-24.9[facility] HospitalComment on above:Performed By: #### INSULIN #### [facility] [address] [place] [address] Dr. Lori Nugent AUTO DIFFon 83-66-1321JASO #0.1 103/ulNormal0.0-0.1[facility] HospitalComment on above:Performed By: #### CBC #### [facility] [address] [place] [address] Dr. Lori Mcbridesophils/100 WBC (Bld)0.6 %Normal0.2-2.0[facility] Comment on above:Performed By: #### CBC #### [facility] [address] [place] [address] Dr. Lori Holliday #0.1 103/ulNormal0.0-0.7The [facility] HospitalComment on above: Performed By: #### CBC #### [facility] [address] [place] [address] Dr. Lori Claireosinophils/100 WBC (Bld)0.6 %Critically low0.9-7.0[facility] HospitalComment on above:Performed By: #### CBC #### [facility] [address] [place] [address] Dr. Lori Clairerythrocyte distribution width (RBC) [Ratio]13.2 %Wbeasc76.0-15.0 The [facility] HospitalComment on above:Performed By: #### CBC #### [facility] [address] [place] [address] Dr. Lori BautistaHematocrit (Bld) [Volume fraction]41.3 %Pmpjyw29.0-48.0[facility] HospitalComment on above:Performed By: #### CBC #### [facility] [address] [place] [address] Dr. Lori BautistaHemoglobin (Bld) [Mass/Vol]13.5 g/hGPmncip02.0-16.0The [facility] HospitalComment on above:Performed By: #### CBC #### [facility] [address] [place] [address] Dr. Lori Trinidad #0.02 10e3/ulNormal0.00-0.03The [facility] HospitalComment on above:Performed By: #### CBC #### [facility] [address] [place] [address] Dr. Lori Trinidad %0.3 %Normal0.0-0.5The [facility] HospitalComment on above: Performed By: #### CBC #### [facility] [address] [place] [address] Dr. Lori Whitlock #2.0 103/ulNormal1.2-3.8The [facility] HospitalComment on above:Performed By: #### CBC #### [facility] [address] [place] [address] Dr. Lori Garciahocytes/100 WBC (Bld)25.6 %Swrtpi70.5-60.0The [facility] HospitalComment on above:Performed By: #### CBC #### [facility] [address] [place] [address] Dr. Lori CorriganUAL DIFF REQNONormalThe [facility] HospitalComment on above: Performed By: #### CBC #### [facility] [address] [place] [address] Dr. Lori Henriquez (RBC) [Entitic mass]31.1 bgGnyvpl56.7-34.0The [facility] HospitalComment on above:Performed By: #### CBC #### [facility] [address] [place] [address] Dr. Lori Henriquez (RBC) [Mass/Vol]32.7 g/nSMjccoo05.9-35.2The [facility] HospitalComment on above:Performed By: #### CBC #### [facility] [address] [address] [address] Lori HenriquezV (RBC) [Entitic vol]95.2 uVWljbfh47.0-99.0The [facility] HospitalComment on above:Performed By: #### CBC #### [facility] [address] [place] [address] Dr. Lori Pardo #0.7 103/ulNormal0.3-0.8The [facility] HospitalComment on above:Performed By: #### CBC #### [facility] [address] [place] [address] Dr. Lori Arthurocytes/100 WBC (Bld)8.4 %Normal1.7-12.0[facility] Comment on above:Performed By: #### CBC #### [facility] [address] [place] [address] Dr. Lori KeatingUT #5.0 103/ulNormal1.4-6.5The [facility] HospitalComment on above:Performed By: #### CBC #### [facility] [address] [place] [address] Dr. Lori Keatingutrophils/100 WBC (Bld)64.5 %Iuxihq31.0-75.0The [facility] HospitalComment on above:Performed By: #### CBC #### [facility] [address] [place] [address] Dr. Lori Beaverlet mean volume (Bld) [Entitic vol]9.9 fLNormal9.5-13.5The [facility] HospitalComment on above:Performed By: #### CBC #### [facility] [address] [place] [address] Dr. Lori BautistaPLT310 103/luExjowx715-609Tva [facility] HospitalComment on above: Performed By: #### CBC #### [facility] [address] [place] [address] Dr. Lori BautistaRBC4.34 106/ulNormal4.20-5.40The [facility] HospitalComment on above:Performed By: #### CBC #### [facility] [address] [address] [address] Lori BautistaWBC7.8 103/ulNormal4.0-11.0The [facility] HospitalComment on above: Performed By: #### CBC #### [facility] [address] [address] [address] Lori Foss THYROXINE INDEX T7on 96-01-8767RNA2.20Aiyzuh8.30-4.50The [facility] HospitalComment on above:Performed By: #### LIPID, TSH, T7, CMP ####[facility] [address] [address]Dr. Lori BautistaT3U31.0 %Idhmny40.0-39.0The [facility] HospitalComment on above: Performed By: #### LIPID, TSH, T7, CMP ####[facility] [address] [address]Dr. Lori BautistaT4 [Mass/Vol]7.30 ug/dLNormal 4.80-13.90The [facility] HospitalCombeaumont hospital on above:Performed By: #### LIPID, TSH, T7, CMP ####[facility] [address] [address]Dr. Lori BautistaGLYCOHEMOGLOBIN A1Con 12-71-4849YVW RECOMMENDATIONSEE BELOW NormalThe [facility] on above:Result Comment: ADA RECOMMENDED LIMIT 4.0 - 6.0 ADA THERAPEUTIC TARGET < 7.0 ACTION SUGGESTED > 7.0Performed By: #### A1C #### [facility] [address] [address] [address] Lori BautistaGlucose [Mass/Vol]117 mg/dLNormalThe [facility] HospitalCombeaumont hospital on above:Performed By: #### A1C #### [facility] [address] [address] [address] Lori BautistaHbA1c (Bld) [Mass fraction]5.7 %Normal4.5-6.2The [facility] HospitalComment on above:Performed By: #### A1C #### [facility] [address] [place] [address] Dr. Lori Wilburn 01-76-8034Aill [Mass/Vol]105.0 ug/bRVomrco61.0-170.0[facility] HospitalComment on above:Performed By: #### IRON, VITAD ####[facility] [address] [address]Dr. Lori BautistaLIPID PROFILEon 36-95-6877YFIQ-HDL RATIO NORMSEE [facility] Comment on above:Result Comment: 3.3 - 4.4 LOW RISK 4.4 - 7.1 AVERAGE RISK 7.1 - 11.0 MODERATE RISK >11.0 HIGH RISKPerformed By: #### LIPID, TSH, T7, CMP ####[facility] [address] [place], [place] [address]Dr. Kimlan ChangCholesterol [Mass/Vol]186 mg/dLNormal<=200[facility] Comment on above:Performed By: #### LIPID, TSH, T7, CMP ####[facility] [address] [place], [place] [address]Dr. Yilan ChangCholesterol in HDL [Mass/Vol]55 mg/nHHpvooj72-93Iqa [facility] HospitalComment on above: Performed By: #### LIPID, TSH, T7, CMP ####[facility] R[address]hr[address] [place], [place] [address]Dr. Yilan ChangCholesterol in LDL [Mass/Vol] 116.4 mg/dLNoAdena Fayette Medical CenterComment on above:Performed By: #### LIPID, TSH, T7, CMP ####[facility] [address]ey[address] [place], [place] [address]Dr. Yilan ChangCholesterol.total/Cholesterol in HDL [Mass ratio]3.4 {ratio}NormalPromedica Fostoria Community HospitalComment on above:Performed By: #### LIPID, TSH, T7, CMP ####[facility] Ekxoyej[address] [place], [place] [address]Dr. Yilan ChangHDL NORMAL> or = 60 mg/dl - LOW CARDIOVASCULAR RISK <40 mg/dl - HIGH CARDIOVASCULAR RISKSheltering Arms HospitalComment on above: Performed By: #### LIPID, TSH, T7, CMP ####[facility] [address] [address]Dr. Yilan ChangLDL CALC NORMALSEE BELOWNoAdena Fayette Medical CenterCombeaumont hospital on above:Result Comment: <100 mg/dl OPTIMAL 100 - 129 mg/dl NEAR OR ABOVE OPTIMAL 130 - 159 mg/dl BORDERLINE HIGH 160 - 189 mg/dl HIGH >190 mg/dl VERY HIGHPerformed By: #### LIPID, TSH, T7, CMP ####[facility] [address] [address]Dr. Lori BautistaTriglyceride [Mass/Vol]73 mg/dLNormal<=150The [facility] on above:Performed By: #### LIPID, TSH, T7, CMP ####[facility] W[address]eb[address] [place], [place] [address]Dr. Lori BautistaVLDL CALC14.6 mg/dLNoAdena Fayette Medical CenterCombeaumont hospital on above:Performed By: #### LIPID, TSH, T7, CMP ####[facility] Hg[address] [place], [place] [address]Dr. Lori ChangPROF 14(COMP METB)on 72-70-5824Denleuv [Mass/Vol]3.9 g/dLNormal3.4-5.0The [facility] on above:Performed By: #### LIPID, TSH, T7, CMP ####[facility] U[address] [place], [place] [address]Dr. Lori Bautista Albumin/Globulin [Mass ratio]1.2 {ratio}NormalThe [facility] on above:Performed By: #### LIPID, TSH, T7, CMP ####[facility] Vryhihontx[address] [place], [place] [address]Dr. Lori MicheleALP [Catalytic activity/Vol]68 U/IDmunco13-471Hew [facility] on above:Performed By: #### LIPID, TSH, T7, CMP ####[facility] Amnucnzyci[address] [place], [place] [address]Dr. Kimlan MicheleALT [Catalytic activity/Vol]20 U/L Twwomz03-22Scv [facility] Hospitalment on above:Performed By: #### LIPID, TSH, T7, CMP ####[facility] [address] [address]Dr. Yilan ChangAnion gap [Moles/Vol]8.2 mmol/LNormalThe [facility] Comment on above:Performed By: #### LIPID, TSH, T7, CMP ####[facility] [address] [address]Dr. Yilan ChangAST [Catalytic activity/Vol]22 U/XDzldug97-58Cbz [facility] Hospitalment on above:Performed By: #### LIPID, TSH, T7, CMP ####[facility] T[address]xe[address]guq[address] [place], [place] [address]Dr. Yilan ChangBilirubin [Mass/Vol]0.3 mg/dLNormal 0.2-1.0The [facility] on above:Performed By: #### LIPID, TSH, T7, CMP ####[facility] S[address]uvr[address] [place], [place] [address]Dr. Yilan ChangCalcium [Mass/Vol]9.2 mg/dLNormal8.5-10.1[facility] Comment on above:Performed By: #### LIPID, TSH, T7, CMP ####[facility] Xsdhhraryf[address] [place], [place] [address]Dr. Yilan ChangChloride [Moles/Vol]105 mmol/VSadvqt63-857Ldr [facility] on above:Performed By: #### LIPID, TSH, T7, CMP ####[facility] Nukgsborod[address] [place], [place] [address]Dr. Yilan ChangCO2 [Moles/Vol]30.0 mmol/LNormal 21.0-32.0The [facility] HospitalComment on above:Performed By: #### LIPID, TSH, T7, CMP ####[facility] Gnwhksuwkl[address] [place], [place] [address]Dr. Yilan ChangCreatinine [Mass/Vol]0.67 mg/dLNormal0.55-1.02The [facility] HospitalComment on above:Performed By: #### LIPID, TSH, T7, CMP ####[facility] Yftggmfspv[address] [place], [place] [address]Dr. Yilan ChangEGFR- AF CITIZEN [place]>60Normal>=60The [facility] HospitalComment on above:Performed By: #### LIPID, TSH, T7, CMP ####[facility] [address]ds[address] [place], [place] [address]Dr. Yilan ChangEGFR-NON AF CITIZEN [place]>60Normal>=60The [facility] HospitalComment on above:Performed By: #### LIPID, TSH, T7, CMP ####[facility] Bpqaclzcci[address] [place], [place] [address]Dr. Yilan ChangGlobulin (S) [Mass/Vol]3.3 g/dLNormalThe [facility] HospitalCombeaumont hospital on above:Performed By: #### LIPID, TSH, T7, CMP ####[facility] Nsyukpbmdt[address] [place], [place] [address]Dr. Yilan ChangGlucose [Mass/Vol]84 mg/hXUmonew57-961Dtd [facility] HospitalCombeaumont hospital on above:Performed By: #### LIPID, TSH, T7, CMP ####[facility] Svrfjavmly[address] [place], [place] [address]Dr. Yilan ChangPotassium [Moles/Vol]4.2 mmol/LNormal 3.5-5.1The [facility] HospitalCombeaumont hospital on above:Performed By: #### LIPID, TSH, T7, CMP ####[facility] Dwsqdhdkfk[address] [place], [place] [address]Dr. Yilan ChangProtein [Mass/Vol]7.2 g/dLNormal6.4-8.2The [facility] HospitalComment on above:Performed By: #### LIPID, TSH, T7, CMP ####[facility] Qjgfjqppmw[address] [place], [place] [address]Dr. Yilan ChangSodium [Moles/Vol]139 mmol/QSidqdd707-902Mdw [facility] HospitalComment on above: Performed By: #### LIPID, TSH, T7, CMP ####[facility] Nqymozsspw[address] [place], [place] [address]Dr. Lori BautistaUrea nitrogen [Mass/Vol]18.0 mg/dLNormal7.0-18.0[facility] HospitalComment on above:Performed By: #### LIPID, TSH, T7, CMP ####[facility] [address] [address]Dr. Lori BautistaUrea nitrogen/Creatinine [Mass ratio] 26.9 mg/mgNoAdena Fayette Medical CenterComment on above:Performed By: #### LIPID, TSH, T7, CMP ####[facility] [address] [address]Dr. Lori BautistaTSHon 76-20-8839RXC1.615 uIU/mLNormal0.358-3.740[facility] HospitalComment on above:Performed By: #### LIPID, TSH, T7, CMP ####[facility] [address] [address]Dr. Lori Michele VITAMIN D 25 OHon 83-51-6148QKK D 25-OH73.1 ng/mLNormalPromedica [facility] Comment on above:Performed By: #### IRON, VITAD ####[facility] [address] [address]Dr. Kimcira BautistaVIT D RANGES SEE BELOWSheltering Arms HospitalComment on above:Result Comment: <20 ng/mL Vit D deficient 20 - <30 ng/mL Vit D insufficient 30 - 100 ng/mL Vit D sufficient >100 ng/mL Potential ToxicityPerformed By: #### IRON, VITAD ####[facility] [address] [address]Dr. Lori BautistaMG MAMM SCREEN 3D APPLE CADon 99-39-8987XH MAMM SCREEN 3D APPLE CAD Patient: NEVAEH THOMAS Exam Date: 08/04/2022 : 1945 Gender:F Ordering : DR CATALINA CERVANTES Admission #: [id number] Family : Order #: [id number] CLICK HERE TO VIEW EXAM RADIOLOGY REPORT [...] lung cancer at age 84. LOCATION: [facility] BREAST COMPOSITION: Heterogeneously dense,which may obscure [...] by: Veronica Duncan MD on 08/04/2022 at 13:25NoAdena [facility] Center Covid-19 PCR (CVDTBH)on 70-38-0678HSOY-CoV-2 (COVID-19) RNA PABLO+probe Ql (Unsp spec)Not detectedNormalNOT DETECTEDThe [facility] HospitalComment on above:Result Comment: This test is not yet approved or cleared by the [place] FDA. When there are no FDA-approved or cleared tests available, and other criteria are met, FDA can make tests available under an emergency access mechanism called an Emergency Use Authorization (EUA). The EUA for this test is supported by the [employer] Developer of Health and Human Service's (HHS's) declaration [...] of clinical signs and symptoms consistent with SARS-CoV-2.Performed By: #### CVDTBH #### [facility] [address] [place] [address] Dr. Lori Seay COVID-19 ANTIGENon 97-36-6621SWU StatementSEE BELOW NormalThe [facility] on above:Result Comment: This test has not been FDA [...] declaration is terminated or authorization is revoked sooner.Performed By: #### RUFUS #### [facility] [address] [place] [address] Dr. Lori Cole-CoV-2 (COVID-19) RNA PABLO+probe Ql (Unsp spec)NegativeNormal NEGATIVEThe [facility] HospitalComment on above:Performed By: #### RUFUS #### [facility] [address] [place] [address] Dr. Lori BautistaCALCIUMon 21-84-2034Npcvtro [Mass/Vol]9.6 mg/dLNormal8.5-10.1The [facility] HospitalComment on above:Performed By: ###LAZARUS HURST ####[facility] [address] [address]Dr. Lori Bautista CREATININEon 72-95-2737Hyldqlzzqk [Mass/Vol]0.68 mg/dLNormal0.55-1.02The [facility] HospitalComment on above:Performed By: ###LAZARUS HURST ####[facility] [address] [address]DrClarence Sandoval ChangEGFR- AF AMERICANNormal>=60The [facility] Hospitalment on above:Performed By: ###LAZARUS HURST ####[facility] [address] [place], [place] [address]GiClarence Sandoval ChangEGFR-NON AF AMERICANNormal>=60The [facility] HospitalComment on above:Performed By: #### LAZRAUS CRUZ ####[facility] [address] [place], [place] [address]MnClarence Sandoval ChangXR DEXA BONE DENSITYon 03-29-2022 XR DEXA BONE DENSITYEXAMINATION: XR DEXA BONE DENSITY, 03/29/2022 11:32 AM EDT HISTORY: [...] Electronically authenticated by: ABBE WEBSTER Date: 2022-03-29 12:43[facility] HospitalXR KUB 1 VIEWon 05-46-7117AB KUB 1 VIEWEXAMINATION: XR KUB 1 VIEW HISTORY: Kidney stone [...] Electronically authenticated by: ABBE WEBSTER Date: 2021-12-18 15:43[facility] Encounters Encounter DateEncounter TypeCare ProviderFacilityStart: 03-06-2025 End: 73-22-4531Albrbun encounter procedureRandall S Loudenslager OD Work Phone: OphthalmologyComment on above: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); Drusen of macula; Keratoconjunctivitis sicca of both eyes not specified as Sjogren's; Vitreous degeneration, bilateral; Pseudophakia of both eyesStart: 03-06-2025 End: 36-05-6502vrdfxlhlneLSLQFHS S LOUDENSLAGERFacility:[facility]tart: 11-06-2024 End: 19-42-8108wtpzwduvgfPxckepq [facility] Work Phone: Start: 11-06-2024 End: 67-82-9444Iocbkwgk ReferredLoni Covarrubias MD Work Phone: [facility]-LAB Path Spec Makayla HospStart: 10-02-2024 End: 24-03-4555Fpmcxb outpatient new 30 minutesEugene Richie Rich DPM Work Phone: [facility] SWS PODIATRYComment on above:Pain of right foot (Primary Dx); Plantar keratosis; Right foot pain; Corns and callositiesStart: 10-02-2024 End: 37-39-9400fhigijfdqhSFPBSG Richie Hui AvailableStart: 04-23-2024 End: 86-89-5664Fyemybnfu encounterMarcy Pappas Estrella DO Work Phone: Internal MedicineComment on above:OrdersStart: 03-27-2024 End: 63-73-4041oqnpullfxuHFTZM D PATELFacility:[facility]tart: 03-27-2024 End: 64-65-3983Boieuet encounter procedureVizion Pappas Estrella DO Work Phone: OrthopaedicsComment on above:Tendinopathy of right rotator cuff (Primary Dx); Degenerative tear of acetabular labrumStart: 03-05-2024 End: 46-26-6654Kkbfksw encounter procedureCatalino Guptager OD Work Phone: OphthalmologyComment on above:Keratoconjunctivitis sicca of both eyes not specified as Sjogren's (Primary Dx); Retinal pigment epithelial mottling of macula; Drusen of right macula; Vitreous degeneration, bilateral; Pseudophakia of both eyesStart: 51-45-1088ycbkplebbjRfqise A Radman RT(R) RadiologyComment on above:Radiology XRStart: 02-16-2024 End: 89-79-3357Nmgoimd encounter procedureCynthia Donato RT(R)[facility] Comment on above:Tendinopathy of right rotator cuff (Primary Dx); Impingement syndrome of right shoulderStart: 02-16-2024 End: 74-47-9179Jyloloelnt hospital visit by physicianBryson Arana 1 Work Phone: RadiologyComment on above:Acute pain of right shoulder [M25.511]Start: 01-31-2024 End: 94-91-8424Akczqam encounter Joelle Estrella DO Work Phone: OrthopaedicsComment on above:Degenerative tear of acetabular labrum (Primary Dx); Pain in right hip; Primary osteoarthritis of right hipStart: 01-31-2024 End: 75-94-1551Oilocfusjc hospital visit by physicianBryson Arana 1 Work Phone: RadiologyComment on above:Pain [R52]Start: 02-28-2023 End: 10-23-2740Ltkwwjj encounter Bobby London OD Work Phone: OphthalmologyComment on above:Vitreous degeneration, bilateral (Primary Dx); Floaters in visual field, bilateral; Keratoconjunctivitis sicca of both eyes not specified as Sjogren's; SPK (superficial punctate keratitis), bilateral; Pseudophakia of both eyes; Retinal pigment epithelial mottling of macula; Drusen of right maculaStart: 12-07-2022 End: 38-80-8267mozrhntfipCZ LONI HOYFacility:N7Sjysd: 09-10-2022 End: 34-41-4205ybwblqbjsuEU LONI HOYFacility:N9Yseuf: 08-27-2022 End: 10-05-1154cosfttbkgpWU LONI HOYFacility:A8Nisou: 08-04-2022 End: 61-77-5432hucybvouytRX CATALINA BRUNERFacility:N6Oeswq: 05-12-2022 End: 28-61-9862hhnjhrbdavOH LONI HOYFacility:H8Bplad: 05-04-2022 End: 88-07-5173ipmqkygebsAV LONI HOYFacility:Y8Slhtu: 03-29-2022 End: 57-18-6340slozfqsksgUR LONI HOYFacility:S6Uaqub: 12-18-2021 End: 92-46-0782tpynrknhdbBMWWEZEE MURPHYFacility:H1 Procedures DateProcedureProcedure DetailPerforming ClinicianStart: 24-30-6539Ksxcqmftmhml ophthalmic imaging retinaRandakerry Connor Loudenslager OD Work Phone: Start: 25-12-8429Yqim stain microscopyLoni Covarrubias MD Work Phone: Start: 25-75-2375Tkfaw shoulder complete minimum 2 viewsVikas Elyse Estrella DO Work Phone: Start: 35-72-2803Sospb hip unilateral with pelvis 2-3 viewsVikas D Estrella DO Work Phone: Plan of Treatment DateCare ActivityDetailAuthorStart: 57-31-7469TEW MACULA CIRRUS OU (BOTH EYES) OCT MACULA CIRRUS OU (BOTH EYES) OPHT Imaging Routine Retinal pigment epithelial mottling of maculaDrusen of macula Expected: 02/24/2027[facility] Work Phone: Comment on above:Expected: 02/24/2027Start: 08-01-2026 Urine microalbumin profileDTaP,Tdap,Td Vaccine (3 - Td or Tdap)[facility] Start: 96-05-7271QYG MACULA CIRRUS OU (BOTH EYES)OCT MACULA CIRRUS OU (BOTH EYES) OPHT Imaging Routine Retinal pigment epithelial mottling of maculaDrusen of right macula Expected: 02/23/2026[facility] Work Phone: Comment on above:Expected: 02/23/2026Start: 03-06-2025 End: 91-19-0969Codsktd encounter ekpgthalt54/30/2025 1:30 PM EDT Office Visit OPHT Ophthalmology [address] [place] [address] Madisynjewels Catalino S, OD [address] [place] [address] Annual Eye examOphthalmologyComment on above:Annual Eye examStart: 23-90-4168LJZ MACULA CIRRUS OU (BOTH EYES)OCT MACULA CIRRUS OU (BOTH EYES) OPHT Imaging Routine Retinal pigment epithelial mottling of maculaDrusen of right macula Expected: 02/17/2025[facility] Work Phone: Comment on above:Expected: 02/17/2025Start: 11-07-2024 Advance Directive DiscussionAdvance Directive DiscussionFisher-Titus Medical Centertart: 51-73-5523Zfuxtus CultureAerobic CultureCity Hospitaltart: 27-97-6948Fjirshaog culture of sputumCity Hospitaltart: 53-24-9904Tpgke-19 Vaccine ( season)Covid-19 Vaccine ( season)[facility]ert[facility]: 91-38-4784Uyrox-19 Vaccine ( season) Covid-19 Vaccine ( season)[facility]: 41-72-5069Diyoqfujr vaccinationFisher-Titus Medical Centertart: 81-22-6803Evsettau ScreeningDiabetes Screening [facility]ertart: 03-27-2024 End: 56-71-6051Wthdwcs encounter uewffatzq78/21/2024 1:15 PM EDT Office Visit Orthopaedics [address] [place] [address] Marcy Estrella, [address] [place] [address] 8 week right hip painOrthopaedicsComment on above:8 week right hip pain Start: 04-88-7842Kqberzv Directive DiscussionAdvance Directive Discussion [facility]ertart: 46-94-4753Hpvpukteql Health ScreeningBehavioral Health ScreeningFisher-Titus Medical Centertart: 92-20-1653Zmljfhzsev AssessmentDepression AssessmentFisher-Titus Medical Centertart: 55-58-7678Qafaf-19 Vaccine ( season) Covid-19 Vaccine ( season)[facility]: 32-96-8566Uxqekkate vaccinationInfluenza Vaccine (#1)[facility]: 72-95-1760HXJCMAT DIRECTIVE DISCUSSIONADVANCE DIRECTIVE DISCUSSIONFisher-Titus Medical Centertart: 78-86-9884LMJKEMFVWT ASSESSMENTDEPRESSION ASSESSMENTFisher-Titus Medical Centertart: 47-47-4204SNRGP-19 VACCINE (4 - Booster for Pfizer series)COVID-19 VACCINE (4 - Booster for Pfizer series)[facility]: 55-54-4769MID Vaccine (1 - 1- dose 75+ series)RSV Vaccine (1 - 1-dose 75+ series)[facility]: 49-12-9788RSBD DENSITYBONE DENSITYFisher-Titus Medical Centertart: 92-12-3630Apiiufrsc for osteoporosisBone Density ScreeningFisher-Titus Medical Centertart: 98-74-2888HYE Vaccine (1 - 1-dose 60+ series)RSV Vaccine (1 - 1-dose 60+ series)[facility]: 55-62-7936Urawpmviq vaccinationLUNG CANCER SCREENINGFisher-Titus Medical Centertart: 53-88-1116Lndlckldf for malignant neoplasm of lungLung Cancer ScreeningFisher-Titus Medical Centertart: 93-44-9566NBTFJGYG VACCINE (1 of 2)SHINGRIX VACCINE (1 of 2) [facility]: 99-28-1764OOMRBZQO SCREENDIABETES SCREENPremier Health [facility] Start: 72-12-7578Brehv microalbumin profileDTAP,TDAP,TD (1 - Tdap)[facility]ertart: 60-03-7760CAKAWX PCP TEAM CHRONIC DISEASE VISITANNUAL PCP TEAM CHRONIC DISEASE VISITFisher-Titus Medical Centertart: 51-92-4941Ibnczne ScreeningAnxiety ScreeningFisher-Titus Medical Centertart: 45-10-3347Sbmyhoilxg ScreeningDepression ScreeningFisher-Titus Medical Centertart: 27-30-0499CRMKHSVKT C SCREENINGHEPATITIS C SCREENINGFisher-[facility]itus Medical Centertart: 33-29-9967Ptzevhotx C screeningHepatitis C ScreeningFisher-Titus Medical Centertart: 93-12-9402JMCQCZIXCELNYJMVDLTHAeqqzoewl Clinic Start: 67-75-3118EULLQRYJBUXZ: 65+ (1 - PCV)PNEUMOCOCCAL: 65+ (1 - PCV)[facility] [facility]OCT MACULA CIRRUS OU (BOTH EYES) OPHT Imaging Routine Retinal pigment epithelial mottling of maculaDrusen of right macula 02/28/2023 5:04 PM [facility] Work Phone: [facility] Immunizations Immunization DateImmunizationNotesCare XwzncojzSgkwxmix92-53-7209ufgryliqv virus vaccine, unspecified formulationMarcy Estrella DO Work Phone: [facility] Payers DatePayer CategoryPayerPolicy [id number]-pay2020Medicare (Managed Care)[id number] [id number] [id number] 2.0.1.694623.3.57[id number] 2.0.1.016038.3.57[id number] 2.840.1.745681.3.57[id number] 2.0.1.087173.3.57[id number] 2.840.1.776348.3.57[id number] 2.16.840.1.605161.3.57[id number] 2.16.840.1.265226.3.57[id number] 2.16.840.1.742964.3.57[id number] 2.16.840.1.799[id number] Health [id number] BC/[id number] MCR [id number] 2.840.1.455228.3.579.2.531 Social History DateTypeDetailFacilityStart: 11-12-2020 End: 87-41-4327Uaiibhm smoking status NHISSmokes tobacco dailyPrem[facility] Health [facility] Work Phone: History of tobacco useCigarette SmokerPrem[facility] Health [facility] Work Phone: Start: 11-12-2020 End: 40-22-2953Lnexlwpgzh smoked current (pack per day) - Gjrbbkie3Xavvesmzg ClinicStart: 11-12-2020 End: 83-01-2348Qgoiivv use and exposureSmokeless tobacco non-userPrem[facility] Health [facility] Work Phone: Start: 02-28-2023 End: 47-57-6508Tfayrpw intakeLifetime non-drinker (finding)[facility] Start: 16-43-0052Neuqchg SDOH Alcohol Fmdcskawc6Rmisqnkml ClinicStart: 36-76-9424Qag Assigned At BirthFemaleCNationwide Children's Hospitaltart: 09-09-2020 End: 81-14-1944Fdctmpx Use Disorder Identification Test - Consumption [AUDIT-C] [facility] often to you have a drink containing alcohol?NeverPremier Health Miami Valley Hospital SouthAverage Number of DrinksNot on fileFisher-Titus Medical Centertart: 13-95-0614Pqjnys identityIdentifies as female gender (finding)[facility]: 09-08-2020 Sexual orientationHeterosexual (finding)[facility]: 10-02-2024 Alcoholic beverage intakeEx-drinker (finding)[facility] NHISUnknown if ever smokedOhiohealth Mansfield Hospital Work Phone: Start: 31-90-3365ZhkNtfnmh (finding)[facility] Medical Equipment Procedure CodeEquipment CodeEquipment Original TextEquipment IdentifierDatesLens Iol 0d +15 Derik Uv Abs - [id number]: 79-32-0230Woyzotr on above:Description: -0.26Lens Iol 0d +15 Derik Uv Abs - [id number] Start: 15-76-6940Xmsrcmo on above:Description: -0.33 Clinical Notes 02-28-2023 to 03-06-2025 Note Date & ZcsnMveyZzfucpbs78-48-6188 NoteDate of Procedure 03/06/2025. Needle Felt Making Machine Operator Information Ccnp: . OCT Macula Interpretation Right Eye Normal foveal contour. Findings include Drusen, RPE Irregularity; Negative for Intraretinal fluid, Subretinal fluid. Left Eye Normal foveal contour. Findings include Drusen, RPE Irregularity; Negative for Intraretinal fluid, Subretinal fluid. Interval Change Right Eye Stable. Left Eye Stable.VGNQL25-30-4750 NoteHNO ID: [id number] Author: CATALINO LONDON, OD Service: ? Author Type: RELATIONSHIP MGR Type: Progress Notes Filed: 03/06/2025 14:50 Note [...] magnifiers if needed March 06, 2025 2:43 PMCSelect [facility]04[facility]30[facility] History of Present illness Narrative * Catalino London, OD - 03/06/2025 2:43 PM EDT ASSESSMENT/PLAN: 1. Retinal pigment epithelial mottling of [...] 06, 2025 2:43 PM documented in this encounterPremier Health [facility] South11-26-2024 History of Present illness Narrative* Dariusz Rich DPM - 10/02/2024 1:30 PM EST Reason for Appointment New Patient: RT plantar foot 1st MPJ region painful callus History of Present Illness NEW patient presents for painful callus to the RT plantar foot 1st MPJ region. Painful callus has been present for about a month or so. Pain is mild when she is wearing shoes however pain increaseswhen she is barefoot. Patient has not attempted [...] keratosis plantar right foot 1st MPJ right muchgreater than left. No sign of infection. No [...] it was uncertain if there was any glassremaining in her foot. None was found. 3. Patient was advised that we may have to proceed with topical salicylic acid or surgical excisionin the future versus debridement if this area of pain would return which is a high likelihood. 4. Patient was advised to wear soft padded shoes for all weight-bearing to cushion that Randal as shehas no pain while walking with shoes intact, [...] infection. 6. Reappoint p.r.n. documented in this encounterBarnes-Jewish Saint Peters HospitalRltsjxxeoi93-13-9222 Telephone encounter Note* Telephone Encounter - Victoria Watson - 04/23/2024 10:58 AM EDT April from [facility] is calling Marcy Estrella DO today with concern regarding evaluation that was faxed on February 20. Requested provider's signature to be faxed with it. Please advise. Patient has been identified by name and birthdate. Duration of symptoms: N/A Person calling: April Call patient at: [phone] ext [phone] Was an appointment scheduled: No Closing statement: Results or non-symptom based questions: Thank you for calling [facility], your call will be returned within the next business day. Thank you, Victoria Watson [facility]06-17-2024 Miscellaneous Notes* Telephone Encounter - Victoria Watson - 04/23/2024 10:58 AM EDT April from [facility] is calling Marcy Estrella DO today with concern regarding evaluation that was faxed on February 20. Requested provider's signature to be faxed with it. Please advise. Patient has been identified by name and birthdate. Duration of symptoms: N/A Person calling: April Call patient at: [phone] ext [phone] Was an appointment scheduled: No Closing statement: Results or non-symptom based questions: Thank you for calling [facility], your call will be returned within the next business day. Thank you, Victoria Watson documented in this encounterPremier Health [facility] South05-21-2024 NoteHNO ID: [id number] Author: MARCY ESTRELLA DO Service: ? Author [...] Activities as tolerated Follow-up as needed Procedures CRISTINO AgostoSelect Medical [facility]05-21-2024 History of Present illness Narrative* Marcy Estrella DO - 03/27/2024 1:06 PM EDT Nevaeh Thomas is a patient of Loni [...] Procedures Marcy Estrella DO documented in this encounterPremier Health [facility] South04-29-2024 History of Present illness Narrative* Catalino London, OD - 03/05/2024 5:03 PM EDT Documentation transcribed from Paper notes from [facility] Downtime ASSESSMENT/PLAN: 1. Keratoconjunctivitis sicca of [...] 05, 2024 5:03 PM documented in this encounterPremier Health Miami [facility] Hospital South04-11-2024 History of Present illness Narrative* Cynthia Donato RT(R) - 02/16/2024 1:02 PM EDT Radiology Service Progress Note PATIENT [...] PATIENT PRESENTS WITH AN IMPLANTABLE OR ATTACHED PLACEMENT OFFICER: No RADIOLOGY DEPARTMENT: General X-ray: Exam(s) Completed: Upper Extremity X- Ray(s): Shoulder, AP / TRUE AP / AXILLARY right PERIPHERAL IV DATA: Not applicable SIGNED BY: RT Anthony(R) February 16, 2024 1:02 PM documented in this encounterPremier Health [facility] South04-11-2024 History of Present illness Narrative* Marcy Estrella DO - 02/16/2024 12:59 PM EDT Nevaeh Thomas is a patient of Loni [...] not done physical therapy in the past. Deniesany instability or mechanical symptoms. PHYSICAL EXAMINATION: Cervical [...] results and radiologist's interpretation, available in the [facility] health record. Images were reviewed [...] needed in the future to discuss possible subacromialinjection at that time. Procedures Verbal health education was given to patient. Patient verbalizes understanding and agrees with the treatment plan as detailed above. Marcy Ogden MD Emergency Medicine Primary Care Sports Medicine Fellow, PGY-5 I personally saw in evaluating the patient today. I personally obtain the leong and critical portionsof the history and physical exam. I reviewed the resident/fellow's documentation and discuss the patient with the resident/fellow. I agree with the resident/fellow's medical decision making as documented. Marcy Estrella DO documented in this encounterPremier Health [facility] South03-26-2024 History of Present illness Narrative* Marcy Estrella DO - 01/31/2024 2:06 PM EDT Images from the original note were not included. Nevaeh Thomas is a patient of Loni Covarrubias MD. CHIEF COMPLAINT: Nevaeh Thomas is a 78 year old female who presents today for new evaluation of Rhip. HISTORY OF PRESENT ILLNESS: PAIN EVALUATION 01/24/2024 [...] results and radiologist's interpretation, available in the [facility] health record. Images were reviewed [...] although XR did not indicate significant degenerative changes.Has glute weakness on exam as well but [...] to assess benefit. Could consider diagnostic/therapeutic injection ifno improvement. Verbal health education was given to patient. Patient verbalizes understanding and agrees with the treatment plan as detailed above. Emily Scales MD Primary Care Sports Medicine Fellow, PGY4 I personally saw in evaluating the patient today. I personally obtain the leong and critical portionsof the history and physical exam. I reviewed the resident/fellow's documentation and discuss the patient with the resident/fellow. I agree with the resident/fellow's medical decision making as documented. Marcy Estrella DO documented in this encounterPremier Health [facility]04-24-2023 History of Present illness Narrative* Catalino London, OD - 02/28/2023 1:19 PM EDT ASSESSMENT/PLAN: 1. Vitreous degeneration, bilateral - ICD9: [...] 28, 2023 1:19 PM documented in this encounterPremier Health [facility] Hospital SouthEvaluation note* Diagnosis Vitreous degeneration, bilateral- Primary Floaters in visual field, bilateral Keratoconjunctivitis sicca of both eyes not specified as Sjogren's Keratoconjunctivitis sicca, not specified as Sjogren's SPK (superficial punctate keratitis), bilateral Pseudophakia of both eyes Lens replaced by other means Retinal pigment epithelial mottling of macula Other retinal disorders 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 documented in this encounter [facility]Evaluation [facility]* Diagnosis Degenerative tear of acetabular labrum- Primary Pain in right hip Pain in joint, pelvic region and thigh Primary osteoarthritis of right hip Primary localized osteoarthrosis, pelvic region and thigh documented in this encounter [facility]Evaluation [facility]* Diagnosis Tendinopathy of right rotator cuff- Primary Impingement syndrome of right shoulder Other affections of shoulder region, not elsewhere classified documented in this encounter [facility]* Diagnosis Keratoconjunctivitis sicca of both eyes not specified as Sjogren's- Primary Keratoconjunctivitis sicca, not specified as Sjogren's Retinal pigment epithelial mottling of macula Other retinal disorders 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, bilateral Pseudophakia of both eyes Lens replaced by other means documented in this encounter [facility]* Diagnosis Tendinopathy of right rotator cuff- Primary Degenerative tear of acetabular labrum documented in this encounter [facility] SouthEvaluchristianacare note* Diagnosis Preop examination- Primary Preoperative examination, unspecified Combined forms of age-related cataract of both eyes Other and combined forms of senile cataract Chronic obstructive pulmonary disease, unspecified COPD type (HCC) Gastroesophageal reflux disease, unspecified whether esophagitis present Hyperlipidemia, unspecified hyperlipidemia type Tobacco abuse Tobacco use disorder Acute pain of right shoulder documented in this encounter [facility] note* Diagnosis Preop examination- Primary Preoperative examination, unspecified Combined forms of age-related cataract of both eyes Other and combined forms of senile cataract Chronic obstructive pulmonary disease, unspecified COPD type (HCC) Gastroesophageal reflux disease, unspecified whether esophagitis present Hyperlipidemia, unspecified hyperlipidemia type Tobacco abuse Tobacco use disorder Pain Generalized pain documented in this encounter [facility] note* Diagnosis Pain of right foot- Primary Plantar keratosis Right foot pain Pain in soft tissues of limb Corns and callosities documented in this encounter [facility] HospitalEvaluchristianacare noteNo assessment information availableOhiohealth Mansfield Hospital Work Phone: Evaluation note* Diagnosis Preop examination- [...] by other means documented in this encounter [facility] for referral (narrative)* Diagnostic Procedure Only (Routine) - ClosedSpecialtyDiagnoses / ProceduresReferred By ContactReferred To ContactXR IMAGING Diagnoses Acute pain of right shoulder Procedures XR SHOULDER GENERAL 3V OR MORE AP/TRUE AP/OTHER RIGHT RADEX SHOULDER COMPLETE MINIMUM 2 VIEWS Marcy Estrella, DO [address] [place] [address] [place] [address] Referral IDStatusReasonStart DateExpiration DateVisits RequestedVisits [id number] Auto-Generated Referral / [facility] for referral (narrative)* Diagnostic Procedure Only (Routine) - ClosedSpecialtyDiagnoses / ProceduresReferred By ContactReferred To ContactXR IMAGING Diagnoses Pain Procedures XR HIP GENERAL 3V PELV/AP/LAT RIGHT RADEX HIP UNILATERAL WITH PELVIS 2-3 VIEWS Marcy Estrella, DO [address] [place] [address] [place] [address] Referral IDStatusReasonStart DateExpiration DateVisits RequestedVisits [id number] Auto-Generated Referral / [facility] for visit Narrative* Diagnostic Procedure Only (Routine) - ClosedSpecialtyDiagnoses / ProceduresReferred By ContactReferred To Contact XR IMAGING Diagnoses Acute pain of right shoulder Procedures XR SHOULDER GENERAL 3V OR MORE AP/TRUE AP/OTHER RIGHT RADEX SHOULDER COMPLETE MINIMUM 2 VIEWS Marcy Estrella, DO [address] [place] [address] [place] [address] Referral IDStatusReasonStart DateExpiration DateVisits RequestedVisits [id number] Auto-Generated Referral [facility] for visit Narrative* Diagnostic Procedure Only (Routine) - ClosedSpecialtyDiagnoses / ProceduresReferred By ContactReferred To Contact XR IMAGING Diagnoses Pain Procedures XR HIP GENERAL 3V PELV/AP/LAT RIGHT RADEX HIP UNILATERAL WITH PELVIS 2-3 VIEWS Marcy Estrella, DO [address] [facility] [place] [address] [place] [address] Referral IDStatusReasonStart DateExpiration DateVisits RequestedVisits [id number] Auto-Generated Referral / [facility] Summary Purpose Family History No Family History Records FoundNo Family History Records FoundNo Family History Records FoundNo Family History Records Found Advance Directives No Advanced Directives Records Found Advance Directive Response Recorded Date/ Time Advance Directives No December 11:18am Medications Administered Section Medication OrderMAR ActionAction DateDoseRateSite fluorescein-benoxinate 0.25-0.4 % 1 Drop (FLURESS) 1 Drop, BOTH EYES, DIRECTED, Starting on Tue02/28/23 at 1230, Until Tue03/01/23 at 0029, Administer for applanation tonometry. In the event of a Fluress shortage, administer Alejandra-Fluor 1 drop intoboth eyes as directed for applanation tonometry, OPHT CLINIC MED ORDERS Given02/28/2023 12:30 PM EDT1 Drop PHENYLephrine 2.5 % 1 Drop (AK-DILATE, HENNA-SYNEPHRINE) 1 Drop, BOTH EYES, DIRECTED, Starting on Tue02/28/23 at 1230, Until Tue03/01/23 at 0029, Administer for dilation PROTECT FROM LIGHT, OPHT CLINIC MED ORDERS Given02/28/2023 12:30 PM EDT1 Drop tropicamide 1 % 1 Drop (MYDRIACYL) 1 Drop, BOTH EYES, DIRECTED, Starting on Tue02/28/23 at 1230, Until Tue03/01/23 at 0029, Administer for dilation, OPHT CLINIC MED ORDERS Given02/28/2023 12:30 PM EDT1 Drop Reason for Referral SpecialtyDiagnoses / ProceduresReferred By ContactReferred To ContactREHAB AND SPORTS THERAPY INS Diagnoses Pain in right hip Procedures CONSULT TO PHYSICAL THERAPY PHYSICAL THERAPY EVALUATION HIGH COMPLEX 45 MINS Marcy Estrella, DO [address] [place] [address] [facility] [place] [address] [place] [address] Referral IDStatusReasonStart DateExpiration DateVisits RequestedVisits [id number] Review Auto-Generated Referral /[id number] / ProceduresReferred By ContactReferred To ContactREHAB AND SPORTS THERAPY INS Diagnoses Tendinopathy of right rotator cuff Impingement syndrome of right shoulder Procedures CONSULT TO PHYSICAL THERAPY PHYSICAL THERAPY EVALUATION HIGH COMPLEX 45 MINS Marcy Estrella, DO [address] [place] [address] [facility] [address] [address] Referral IDStatusReasonStart DateExpiration DateVisits RequestedVisits [id number] Review Auto-Generated Referral / Additional Source Comments INFORMATION SOURCE (unrecogn ized section and content) DATE CREATED AUTHOR 12/07/2022 [facility] DATE CREATED AUTHOR AUTHOR'S ORGANIZ ATION 10/05/2024 [facility] DATE CREATED AUTHOR AUTHOR'S ORGANIZ ATION 11/18/2024 [facility] DATE CREATED AUTHOR AUTHOR'S ORGANIZ ATION 03/11/2025 [facility] Source Comments (unrecognize d section and content) In the event this informatio n is protected by the Federal Confidentiality of Alcohol and Drug Abuse Patient Records regulations: The Federal rules restrict any use of the information to criminally investigate or prosecute any alcohol or drug abuse patient.[facility] SouthIn the event this information is protected by the Federal Confidentiality of Alcohol and Drug Abuse Patient Records regulations: The Federal rules restrict any use of the information to criminally investigate or prosecute any alcohol or drug abuse patient.[facility] SouthIn the event this information is protected by the Federal Confidentiality of Alcohol and Drug Abuse Patient Records regulations: The Federal rules restrict any use of the information to criminally investigate or prosecute any alcohol or drug abuse patient.[facility] SouthIn the event this information is protected by the Federal Confidentiality of Alcohol and Drug Abuse Patient Records regulations: The Federal rules restrict any use of the information to criminally investigate or prosecute any alcohol or drug abuse patient.[facility] SouthIn the event this information is protected by the Federal Confidentiality of Alcohol and Drug Abuse Patient Records regulations: The Federal rules restrict any use of the information to criminally investigate or prosecute any alcohol or drug abuse patient.[facility] SouthIn the event this information is protected by the Federal Confidentiality of Alcohol and Drug Abuse Patient Records regulations: The Federal rules restrict any use of the information to criminally investigate or prosecute any alcohol or drug abuse patient.[facility] SouthIn the event this information is protected by the Federal Confidentiality of Alcohol and Drug Abuse Patient Records regulations: The Federal rules restrict any use of the information to criminally investigate or prosecute any alcohol or drug abuse patient.[facility] SouthIn the event this information is protected by the Federal Confidentiality of Alcohol and Drug Abuse Patient Records regulations: The Federal rules restrict any use of the information to criminally investigate or prosecute any alcohol or drug abuse patient.[facility] SouthIn the event this information is protected by the Federal Confidentiality of Alcohol and Drug Abuse Patient Records regulations: The Federal rules restrict any use of the information to criminally investigate or prosecute any alcohol or drug abuse patient.[facility] SouthIn the event this information is protected by the Federal Confidentiality of Alcohol and Drug Abuse Patient Records regulations: The Federal rules restrict any use of the information to criminally investigate or prosecute any alcohol or drug abuse patient.[facility] Reason for Visit (unrecogniz ed section and content) ReasonCommentsYearly ExamFloaters Both EyesReasonCommentsNewRight Hip PainReason CommentsRadiology XRReasonCommentsNewPain (Shoulder Pain)ReasonCommentsDry Eye(s) Both EyesVitreous Degeneration (Pvd)ReasonCommentsEstablished Patient Right Hip PainReasonCommentsOrdersReasonCommentsPseudophakia Care Teams (unrecognized sec tion and content) Team MemberRelationshipSpecialtyStart DateEnd Date Loni Covarrubias MD PCP - GeneralFamily Pptqviwz72/25/10am MemberRelationshipSpecialtyStart Date End Date Loni Covarrubias MD PCP - GeneralFamily Zuzfmfmw46/25/10am MemberRelationshipSpecialtyStart Date End Date Loni Covarrubias MD PCP - GeneralFamily Jahzgbtx64/25/10am MemberRelationshipSpecialtyStart Date End Date Loni Covarrubias MD PCP - GeneralFamily Bfepqjoj86/25/10am MemberRelationshipSpecialtyStart Date End Date Loni Covarrubias MD PCP - Generalmi Idnzjrra67/25/10Team MemberRelationshipSpecialtyStart Date End Date L[facility]ubias [facility]31[facility]10Team MemberRelationshipSpecialtyStart Date End Date Loni Covarrubias MD PCP - [facility]08/31/10Team MemberRelationshipSpecialtyStart Date End Date Loni Covarrubias MD PCP - [facility]08/31/10Te MemberRelationshipSpecialtyStart Date End Date Loni Covarrubias MD [address] [place] [id number] PCP - [facility]10/02/24 Team Status: Inactive Member Role Status Dates Loni Covarrubias MD Attending Provider Active Sta rt: November 06, 2024 End: November 06, 2024Team MemberRelationshipSpecialtyStart DateEnd Date Loni Covarrubias MD PCP - [facility]08/31/10Team MemberRelationshipSpecialtyStart Date End Date Loni Covarrubias MD [facility] - [facility]08/31/10 Goals (unrecognized section and content) Goals may [...] BE BASED ON THE PRIMARY CLINICAL RECORDS. [facility] [facility]. provides no warranty or guarantee of the accuracy or completeness of information in this document.
== END 2025-09-10 12:07 | disposition home or self-care (01) ==
LOC: RAD 12:07
PROVIDERS: PCP Family Medicine; Visit Provider Family Medicine
DX: K52.9 Noninfective gastroenteritis and colitis, unspecified (principal); M25.551 Pain in right hip
CPT/HCPCS: 73502; 74022

== ENCOUNTER 2025-10-11 07:52 | Outpatient (OUT) | payer MEDICARE, SELFPAY ==
--- OUTSIDE RECORDS SUMMARY | 2025-10-11 07:56 | XMS_ITS | Clinical Summary ---
Author Organization [facility] Healthcare Address [address] [place] [address] Care Team Providers Care Warehouse Order Picker Name Role Phone Dileep Covarrubias MD Primary Care Provider [phone] Allergies No known active allergies Medications MedicationSigDispense [...] 1 tablet before bedtime.Active fish oil concentrate (Reserve-3) 300 MG capsule Take 550 mg by [...] and Gender InformationValueDate Recorded Sex Assigned at XshexAeakxe92/01/2024 6:09 PM EDTLegal TybEnjstd64/15/2023 6:47 PM EDTGender WvyfidpeWwnmaw89/01/2024 6:09 PM EDTSexual OrientationStraight 09/07/2024 6:09 PM EDT Last Filed Vital Signs Vital SignReadingTime TakenCommentsBlood Zgdrvuqx425/80011/09/2021 12:00 PM EST Pulse--Temperature--Respiratory Rate--Oxygen Saturation--Inhaled Oxygen Concentration--Mmzmwe04.7 kg (125 lb)11/09/2021 12:00 PM MGDMafanp324.2 cm (5' 1.5 )11/09/2021 12:00 PM ESTBody Mass Index23.24011/09/2021 12:00 PM EST Plan of Treatment Not on file Insurance Care Teams Team MemberRelationshipSpecialtyStart DateEnd Dileep Covarrubias MD PCP - GeneralFamily Pmqxfcix58/26/24
--- OUTSIDE RECORDS SUMMARY | 2025-10-11 07:56 | XMS_ITS | CCD ---
Author Organization [facility] CliniSyne Care Team Providers Care Business Process Associate Name Role Phone BOBBY, DR IVEY Admitting Unavailable CHERELLEY, DR IVEY Attending Unavailable HOY, DR IVEY Consulting Unavailable CHERELLEY, DR IVEY Primary Care Unavailable HOY, DR IVEY Primary Care Unavailable HOY, DR IVEY Admitting Unavailable HOY, DR IVEY Attending Unavailable HOY, DR IVEY Consulting Unavailable PERLA, DR VERONICA Christian Consulting Unavailable JOAN, HIPOLITO Admitting Unavailable JOAN, HIPOLITO Attending Unavailable ELEANOR, DR ABBE Quiroz Consulting Unavailable CHERELLEY, DR IVEY Primary Care Unavailable JOAN, HIPOLITO Consulting Unavailable CHERELLEY, DR IVEY Admitting Unavailable [...] Provider Loni Covarrubias MD Primary Care Provider [phone] Loni Covarrubias MD Primary Care Provider DARIUSZ RICH Attending Unavailable Loni Covarrubias MD Attending Provider [phone] Loni Covarrubias Attending Unavailable Loni Covarrubias Admitting Unavailable CATALINO LONDON Attending Unavaila CATALINO Rahman Referring Unavaila LONI Stephens Primary Care Unavailable MARCY ESTRELLA Attending Unavailable LONI COVARRUBIAS Primary Care Unavailable Davon ORELLANA Attending Unavailable Loni Covarrubias Referring Unavailable Allergies Allergy ClassificationReported Allergen(s)Allergy TypeDate of OnsetReaction(s) Facility (2 sources)black walnut pollen extract; Translations: [SEYHFQH-ONT-SHS REDUCTASE INHIBITORS]Drug Hvehrtw51-54-9606Idv [facility] Repository (10 sources)HMG-CoA reductase inhibitorDrug Ymojgqb18-54-1082VqwiwzeAxjetoarx Clinic Medications Current Medications MedicationDrug Class(es)DatesSig (Normalized)Sig (Original)[id number] 200 actuat albuterol 0.09 mg/actuat metered dose inhaler (10 sources)beta2-Adrenergic AgonistStart: 85-24-0521scsg 2 puff(s) by inhalation every six hours as neededalbuterol HFA (PROAIR HFA) 90 mcg/actuation inhaler 2 Puffs every 6 hours as needed. Take as directed 11/12/2020 Active Comment on above:2 Puffs every 6 hours as needed. Take as directedascorbic acid 500 mg oral tablet (13 sources)Vitamin CStart: 47-22-3504sxarbkcf acid, vitamin C, (VITAMIN C) 500 mg tablet 11/07/1999 ActiveAscorbic Acid (Vitamin C) 500 MG capsule Vitamin C Activeaspirin 81 mg delayed release oral tablet (13 sources)Platelet Aggregation Inhibitor, Nonsteroidal Anti-inflammatory Drug Start: 71-35-6945cezfklh, enteric coated (ASPIRIN, ENTERIC COATED) 81 mg EC tablet 11/07/1989 Activebenoxinate hydrochloride 4 mg/ml / fluorescein sodium 3 mg/ml ophthalmic solution (3 sources)Diagnostic DyeStart: 03-06-2025 End: 77-94-1026khhwyanldsf-benoxinate 0.3-0.4 % 1 drop (FLURESS)Start: 03-05-2024 End: 51-58-8039panlczsnhvq-benoxinate 0.25-0.4 % 1 Drop (FLURESS)Start: 02-28-2023 End: 33-46-2279hfiifqzpycd-benoxinate 0.25-0.4 % 1 Drop (FLURESS)biotin 2.5 mg oral capsule (13 sources)Start: 50-79-1698Fppuax 2,500 mcg cap 11/07/1989 ActiveBiotin 2500 MCG chewable tablet Activecalcium carbonate 1250 mg / cholecalciferol 0.01 mg oral tablet (1 source)Vitamin DStart: 21-75-8727Cfbjvki Carbonate-Vitamin D3 (Calcium 500 With D) 500 mg(1,250mg) -400 unit Tablet Active 1200 MG PO Daily December 23, 2017 12:00amCalcium Citrate / Vitamin D (2 sources)Calcium Citrate-Vitamin D (CALCIUM CITRATE + D PO) Take by mouth ActiveCALCIUM CITRATE-VITAMIN D3 ORAL (10 sources)Start: 10-92-3308DMMRLFV CITRATE-VITAMIN D3 ORAL 11/07/1989 Active Start: 95-26-8652QMBYTBP CITRATE-VITAMIN D3 ORALcholecalciferol 0.025 mg oral tablet (1 source)Vitamin DStart: 67-91-6190epvc 1 tablet by mouth once daily Cholecalciferol (Vitamin D3) (Vitamin D3) 1,000 unit Tablet Active 1000 UNIT PO Daily December 23, 2017 12:00amchondroitin sulfates 400 mg / glucosamine hydrochloride 500 mg oral tablet (13 sources)Start: 80-37-8205addw 1 tablet by mouth once dailyGlucosamine- Chondroitin 500-400 mg Tablet Active 1 TAB PO Daily December 23, 2017 12:00am Start: 08-08-0319wvfiyfvddfz-chondroitin 500-400 mg capsule 08/07/1990 Active take 1 tablet by mouth in the morning, then take 1 tablet by mouth in the evening, then take 1 tablet by mouth at bedtimeglucosamine-chondroitin 500-400 MG tablet Take 1 tablet by mouth in the morning and 1 tablet in theevening and 1 tablet before bedtime. Activedenosumab (12 sources)RANK Ligand InhibitorStart: 47-74-0856gtjkqvvac (PROLIA SUBCUTANEOUS) 07/08/2020 ActiveStart: 26-09-9713asnmvdvgv (PROLIA SUBCUTANEOUS) Denosumab (PROLIA SC) Inject under the skin Activedocusate sodium 100 mg oral capsule (13 sources)Start: 11-90-1768iblokzbd sodium (COLACE) 100 mg capsule 11/07/1989 Activeezetimibe 10 mg oral tablet (12 sources)Dietary Cholesterol Absorption InhibitorStart: 24-66-9012mfcb 1 tablet by mouth once dailyezetimibe (ZETIA) 10 mg tablet Take 10 mg by mouth once daily. 07/05/2020 ActiveComment on above:Take 10 mg by mouth once daily. fish oil concentrate ([place]-3) 300 MG capsule (2 sources)fish oil concentrate ([place]-3) 300 MG capsule Take 550 mg by mouth Daily Jzynzi01 actuat fluticasone furoate 0.1 mg/actuat / vilanterol 0.025 mg/actuat dry powder inhaler (13 sources)Corticosteroid, beta2-Adrenergic AgonistStart: 11-65-6807ICFV ELLIPTA 100-25 mcg/dose inhaler 09/07/2020 ActiveStart: 57-20-4837Tjmhuwkadza Furoate-Vilanterol (Breo Ellipta) 100-25 mcg/dose Blister With Device Active 1 INH INHALATION Q24H December 23, 2017 12:00amFluticasone Furoate-Vilanterol (Breo Ellipta) 100-25 MCG/ACT aerosol powder Inhale Activefolic acid 0.4 mg / vitamin b12 1 mg sublingual tablet (4 sources)Vitamin Q34bjmxpuirqymztk/folic acid (VITAMIN G53-RVICM ACID) 1,000- [address] by sublingual route. Activegabapentin 100 mg oral capsule (11 sources)Anti-epileptic AgentStart: 82-60-6948ariz 1 capsule by mouth once daily as neededgabapentin (NEURONTIN) 100 mg capsule Take 1 capsule by mouth once daily as needed (for sciatica) for up to 180 days. 11/12/2020 ActiveComment on above:Take 1 capsule by mouth once daily as needed (for sciatica) for up to 180 days.gemfibrozil 600 mg oral tablet (13 sources)Peroxisome Proliferator Receptor alpha AgonistStart: 41-72-7556icsj 1 tablet by mouth twice dailyGemfibrozil 600 mg Tablet Active 600 MG PO Twice daily December 23, 2017 12:00amStart: 24-38-5943lymd 1 tablet by mouth once dailygemfibrozil (LOPID) 600 mg ORAL tablet Take one(1) tablet two(2) times daily. 0 09/03/2010 ActiveComment on above:Take one(1) tablet two(2) times daily.ibandronic acid 150 mg oral tablet (1 source)BisphosphonateStart: 94-29-3866aokt 1 tablet by mouth every month Ibandronate 150 mg Tablet Active 150 MG PO every month December 23, 2017 12:00ammecobalamin 1 mg chewable tablet (10 sources)Start: 82-34-9509erlrhgshsok, vitamin B12, 1,000 mcg chew 11/07/2014 ActiveMultiple Vitamin (multivitamin) tablet (2 sources)take 1 tablet by mouth once dailyMultiple Vitamin (multivitamin) tablet Take 1 tablet by mouth Daily Activemultivit,iron,minerals/lutein (CENTRUM SILVER ULTRA WOMEN'S ORAL) (10 sources)Start: 13-70-5531qgjtrzha,iron,minerals/lutein (CENTRUM SILVER ULTRA WOMEN'S ORAL) 11/07/1999 ActiveStart: 88-99-4798jfsxtgro,iron,minerals/lutein (CENTRUM SILVER ULTRA WOMEN'S ORAL)Multivitamin Tablet (1 source)Start: 56-45-9938yogl 1 tablet by mouth once dailyMultivitamin Tablet Active 1 TAB PO Daily December 23, 2017 12:00amOmega 7-Jjk-Hby-Fish Oil (Fish Oil) 1,000 mg (120 mg-180 mg) Capsule (1 source)Start: 62-22-8477Ehsxg 9-Dbg-Wdh-Fish Oil (Fish Oil) 1,000 mg (120 mg- 180 mg) Capsule Active 500 MG PO Daily December 23, 2017 12:00amomega 8-hsa-wix-fish oil (FISH OIL) 100-160-1,000 mg cap (10 sources)omega 8-gcq-dok-fish oil (FISH OIL) 100-160-1,000 mg cap Fish Oil Activeomega 4-vnd-xma-fish oil (FISH OIL) 100-160-1,000 mg cap Fish Oil 0 Active Comment on above:Fish Oilpantoprazole 40 mg delayed release oral tablet (13 sources)Proton Pump InhibitorStart: 42-33-1255wdau 1 tablet by mouth once dailypantoprazole (PROTONIX) 40 mg ORAL tablet Take one(1) tablet daily. 0 09/03/2010 ActiveComment on above:Take one(1) tablet daily.phenylephrine hydrochloride 25 mg/ml ophthalmic solution (3 sources)alpha-1 Adrenergic AgonistStart: 03-06-2025 End: 90-20-8544VLZWSFadwrtkq 2.5 % 1 drop (AK-DILATE, HENNA-SYNEPHRINE)Start: 03-05-2024 End: 26-29-2267WSEPRUzobfunu 2.5 % 1 Drop (AK-DILATE, HENNA-SYNEPHRINE)Start: 02-28-2023 End: 92-28-4122RMNUQNlijacnb 2.5 % 1 Drop (AK-DILATE, HENNA-SYNEPHRINE) polyethylene glycol 3350 69433 mg powder for oral solution (2 sources)Osmotic Laxativepolyethylene glycol, PEG, 3350 (Miralax) 17 g packet Take by mouth Activesimethicone 125 mg oral capsule (12 sources)Start: 78-81-8591Clffndkmpvc 125 mg cap 11/07/2014 Activesimethicone (Mylicon) 125 MG chewable tablet 1 (one) time each day at the same time Active tropicamide 10 mg/ml ophthalmic solution (3 sources)AnticholinergicStart: 03-06-2025 End: 25-63-2287tqzbjtxavwb 1 % 1 drop (MYDRIACYL)Start: 03-05-2024 End: 11-78-3756iowaidafjqo 1 % 1 Drop (MYDRIACYL)Start: 02-28-2023 End: 03-67-6264qvutaujcqgp 1 % 1 Drop (MYDRIACYL)vitamin b12 1 mg oral tablet (3 sources)Vitamin T19Prnck: 85-54-2997qvax 1 tablet by mouth once daily in the eveningCyanocobalamin (Vitamin B-12) (Vitamin B-12) 1,000 mcg Tablet Active 1000 MCG PO Every evening December 23, 2017 12:00amvitamin e 90 mg oral capsule (13 sources)Start: 67-61-9703hvuc 1 capsule by mouth once daily at bedtime Vitamin E 200 unit Capsule Active 200 UNIT PO Daily at bedtime December 23, 2017 12:00amStart: 81-61-6835cfrvmnd E mixed 400 unit cap 11/07/1989 Activetake 1 capsule by mouth once dailyvitamin E 180 MG (400 UNIT) capsule Take 180 mg by mouth Daily Active Completed/Discontinued Medications MedicationDrug Class(es)DatesSig (Normalized)Sig (Original)ketorolac tromethamine 5 mg/ml ophthalmic solution (2 sources)Nonsteroidal Anti-inflammatory Drug, Cyclooxygenase InhibitorStart: 11-19-2020 End: 26-65-1835ewIEWipus (ACULAR) 0.5 % ophthalmic solution USE DIRECTED BY PHYSICIAN, IN OPERATIVE EYE, BEGINNING ONE DAY AFTER SURGERY 1 Bottle 0 12/03/2020 02/28/2023 Discontinued (Course of therapy completed)Comment on above:USE DIRECTED BY PHYSICIAN, IN OPERATIVE EYE, BEGINNING ONE DAY AFTER SURGERYmeloxicam 7.5 mg oral tablet (3 sources)Nonsteroidal Anti-inflammatory DrugStart: 02-16-2024 End: 26-76-0915ygxr 1 tablet by mouth once dailymeloxicam (MOBIC) 7.5 mg tablet Take 1 tablet by mouth once daily. 30 tablet 02/16/2024 03/17/2024 Comment on above:Take 1 tablet by mouth once daily.naproxen 250 mg oral tablet (5 sources)Nonsteroidal Anti-inflammatory DrugStart: 01-31-2024 End: 00-11-4050cqrb 1 tablet by mouth twice daily as [...] mg/ml ophthalmic suspension (2 sources)CorticosteroidStart: 11-19-2020 End: 47-81-0577fjjkgjnxIXRO acetate (PRED FORTE, ECONOPRED PLUS) 1 % ophthalmic suspension USE DIRECTED BY PHYSICIAN, IN OPERATIVE EYE, BEGINNING ONE DAY AFTER SURGERY 1 Bottle 0 12/03/2020 02/28/2023 Discontinued (Course of therapy completed)Comment on above:USE DIRECTED BY PHYSICIAN, IN OPERATIVE EYE, BEGINNING ONE DAY AFTER SURGERY Problems Active Problems Problem ClassificationProblemDateDocumented DateEpisodic/ChronicCataract (4 sources)Bilateral pseudophakia; Translations: [Presence of intraocular lens] Onset: 70-97-3426QyxpkkyXbapzao obstructive pulmonary disease and bronchiectasis (13 sources)Chronic obstructive pulmonary disease, unspecified; Translations: [Chronic obstructive lung disease]Onset: 571572-01-8415UeiywmkVyhhsugrk of lipid metabolism (14 sources)Pure hypercholesterolemia, unspecified; Translations: [Hyperlipidemia, unspecified]Onset: 598099-01-0723BtgrukuJbmbxhcsqy disorders (12 sources)Gastroesophageal reflux disease; Translations: [Gastro-esophageal reflux disease without esophagitis]Onset: hronic Inflammation; infection of eye (except that caused by tuberculosis or sexually transmitteddisease) (5 sources)Keratoconjunctivitis sicca; Translations: [Keratoconjunctivitis sicca, not specified as Sjogren's, bilateral]Onset: 24-38-0535TwmyavxWsqdy disorders and dislocations; trauma-related (2 sources)Acetabular labrum tear; Translations: [Other articular cartilage disorders, unspecified hip]57-75-2228UheaecmFevqpgqlduz deficiencies (1 source)Vitamin D deficiency, unspecified; Translations: [VITAMIN D DEFICIENCY UNSPECIFIED]Onset: 88-91-7477TqfvjbnVdeotjmibkbdvy (1 source)Osteoarthritis of right hip joint; Translations: [Unilateral primary osteoarthritis, right hip]83-53-8156LpemiprAvfnwybjkkhu (4 sources)Age-related osteoporosis without current pathological fracture; Translations: [AGE-REL OSTEOPOR W/OCURR PATH FX]Onset: 04-02-5545PwsanplQblgq congenital anomalies (2 sources)Acral keratosis; Translations: [Other specified congenital malformations of skin]10-30-0078XukitkmZngra connective tissue disease (2 sources)Disorder of rotator cuff; Translations: [Unspecified disorder of synovium and tendon, right shoulder]44-76-1155VmoayfapAzxzp connective tissue disease (1 source)Impingement syndrome of right shoulder region; Translations: [Impingement syndrome of right shoulder]71-03-8944GnssboylSvvkr connective tissue disease (4 sources)Pain in right foot; Translations: [Pain in right foot]10-02-2024 EpisodicOther eye disorders (3 sources)Bilateral vitreous degeneration of eyes; Translations: [Vitreous degeneration, bilateral]ChronicOther eye disorders (1 source)Bilateral vitreous floaters; Translations: [Other vitreous opacities, bilateral]ChronicOther eye disorders (1 source)Vitreous degeneration, bilateral; Translations: [Vitreous degeneration, bilateral]Onset: 51-71-2409UdowktqNmgkw lower respiratory disease (1 source)Other nonspecific abnormal finding of lung field; Translations: [OTH NONSPECIFIC ABN FIND LNG FIELD]Onset: 55-56-3064VrgavwjfMqost non-traumatic joint disorders (1 source)Pain in right hip joint; Translations: [Pain in right hip]01-31-2024 EpisodicOther non-traumatic joint disorders (1 source)Pain in right shoulder; Translations: [Pain in joint, shoulder region] 20-39-5326NdryewngScimu skin disorders (2 sources)Callosity; Translations: [Corns and callosities]41-90-5125Ssnbhnly Residual codes; unclassified (10 sources)Tobacco user; Translations: [Tobacco use]23-16-5944QtimawfwDpzursax codes; unclassified (1 source)Pain; Translations: [Pain, unspecified]06-36-1808WlrdxnxuWvwesju detachments; defects; vascular occlusion; and retinopathy (8 sources)Retinal pigment epithelial abnormality; Translations: [Other specified retinal disorders]Onset: 38-94-2873NcdbnpmBalglzbic-related disorders (4 sources)Nicotine dependence, cigarettes, uncomplicated; Translations: [NICOTINE DEPEND CIGARETTES UNCOMP]Onset: 08-64-6377LopxdtjDeopdtebwkaq (3 sources)COUGH, UNSPECIFIED; Translations: [COUGH, UNSPECIFIED]Onset: 51-97-5528Bvwehpmyudum (1 source)CONTACT W/AND (SUSP) EXPOS COVID-19; Translations: [CONTACT W/AND (SUSP) EXPOS COVID-19]Onset: 05-16-2022 Past or Other Problems Problem ClassificationProblemDateDocumented DateEpisodic/ChronicCalculus of urinary tract (4 sources)Calculus of kidney; Translations: [CALCULUS OF KIDNEY]Onset: 68-78-5185OtnbhpetEltczbdktx and other anemia (1 source)Anemia, unspecified; Translations: [ANEMIA UNSPECIFIED]Onset: 75-88-8445QdlcelgoRaqfnxhd mellitus without complication (1 source)Other abnormal glucose; Translations: [OTHER ABNORMAL GLUCOSE]Onset: 79-78-4710SiaebdejHwanvnk and fatigue (4 sources)Other fatigue; Translations: [OTHER FATIGUE]Onset: 94-05-6171Ztbtglpf Other lower respiratory disease (1 source)Other forms of dyspnea; Translations: [OTHER FORMS OF DYSPNEA]Onset: 45-36-1964AbdxdpyzVrmkm screening for suspected conditions (not mental disorders or infectious disease) (4 sources)Encounter for screening mammogram for malignant neoplasm of breast; Translations: [ENC SCR MAMMO MALIG NEOPLASM BREAST]Onset: 87-96-5016Sytbiilj Pulmonary heart disease (1 source)Personal history of pulmonary embolism; Translations: [PERSONAL HISTORY PULMONARY EMBOLISM]Onset: 73-37-8982LijzdkfcYjogquzw codes; unclassified (1 source)Family history of malignant neoplasm of trachea, bronchus and lung; Translations: [FAM HX MALIG NEOPLSM TRACH BRON LNG]Onset: 25-28-2337Qvowqsyj Unclassified (1 source)COUGH, UNSPECIFIED; Translations: [COUGH, UNSPECIFIED]Onset: 05-12-2022 Results Test NameValueInterpretationReference RangeFacilityOCT MACULA CIRRUS OU (BOTH EYES)on 80-73-7981Fyrexllko ClinicRadiology Study observation (narrative) [facility] HospitalAerobic Cultureon 25-99-2995Iihkjiu CultureORGANISM: Moraxella catarrhalis (O:MORCAT) Beta Lactamase Positive Quantity of Growth Heavy Growth Gram Stain Result 1+ Gram Positive Cocci in Pairs PERFORMED BY: [address] [address] PATHOLOGIST GEOLOGY FACULTY MEMBER GWEN ABDUL M.D.NormalThe [facility] Physician GroupComment on above: Performed By: #### GS, AERC #### [address] [address] USAGram Stainon 49-03-5665Qrgqdllkuan observation Gram stain Nom (Unsp spec)Gram Stain Result 1+ Gram Positive Cocci in Pairs 11/06/2024 1624 PAB PERFORMED BY: [address] [address] PATHOLOGIST GEOLOGY FACULTY MEMBER GWEN ABDUL M.D.NormalThe [facility] Physician GroupComment on above: Performed By: #### GS, AERC #### [facility] [address]yer StreetGram stain microscopyOrdered By: Loni Covarrubias on 11-06-2024 Microscopic observation Gram stain Nom (Unsp spec)Gram stain microscopySelect Medical Specialty Hospital - Boardman, IncCNPNon 19-66-6203KIKFHglymkfgi (INTMAL) NEVAEH THOMAS ([id number]) 1945 F Date Time Provider Department 04/23/24 MARCY ESTRELLA INTANTOINETTE During your visit today, we recorded the following information about you: Victoria Watson 04/23/2024 11:01 AM Signed April from [facility] is calling Marcy Estrella DO today with concern regarding evaluation that was faxed on February 20. Requested provider's signature to be faxed with it. Please advise. Patient has been identified by name and birthdate. Duration of symptoms: N/A Person calling: April Call patient at: [phone] ext [phone] Was an appointment scheduled: No Closing statement: Results or non-symptom based questions: Thank you for calling [facility], your call will be returned within the next business day. Thank you, Victoria Watson Allergies As of Date: 04/23/2024 Noted Allergy Reaction ULUQAVT-ANX-ROD REDUCTASE INHIBIT*02/28/2023 16 - Unknown Date Reviewed: 03/27/2024 Reviewed by: Marcy Estrella DO - Fully Assessed Reason for Visit: Orders [681] Prescriptions as of 12/10/2024 - cyanocobalamin/folic acid (VITAMIN D71-UWVUO ACID) 1,000-[address] by sublingual [...] E mixed 400 unit cap - omega 1-ndy-ltq-fish oil (FISH OIL) 100-160-1,000 mg cap Fish Oil - pantoprazole (PROTONIX) 40 mg ORAL tablet Take one(1) tablet daily. - gemfibrozil (LOPID) 600 mg ORAL tablet Take one(1) tablet two(2) times daily. Problem List As Of Date 04/23/2024 Noted Resolved COPD (chronic obstructive pulmonary disease) (H* GERD (gastroesophageal reflux disease) [K21.9] HLD (hyperlipidemia) [E78.5] Tobacco abuse [Z72.0] Encounter Status:Closed by VICTORIA WATSON on 12/10/24[facility] 95-73-4711URVPNoomkl Visit (LOORRM) NEVAEH THOMAS ([id number]) 1945 F Date Time Provider Department 03/27/24 1:15 PM ESTRELLA, MARCY D LOORRM During your visit today, we recorded [...] As of Date: 03/27/2024 Noted Allergy Reaction VCYHOVP-ZDM-YBE REDUCTASE INHIBIT*02/28/2023 16 - Unknown Date Reviewed: 03/27/2024 Reviewed by: Marcy Estrella DO - Fully Assessed Reason for Visit: Established Patient [175] Right Hip Pain [1554] Primary Visit Diagnosis: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] Other Visit Diagnosis: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 - gemfibrozil (LOPID) 600 mg ORAL tablet Take one(1) tablet two(2) times daily. Problem List As Of Date 03/27/2024 Noted Resolved COPD (chronic obstructive pulmonary disease) (H* GERD (gastroesophageal reflux disease) [K21.9] HLD (hyperlipidemia) [E78.5] Tobacco abuse [Z72.0] Encounter Status:Closed by MARCY ESTRELLA on 03/27/24NoGood Samaritan HospitalXR Shoulder - right 3 Viewson 65-29-2309PPPNGOSEUG: MINIMAL DEGENERATIVE CHANGES RIGHT SHOULDER Enterprise Infrastructure Architect: TAYA Transcribe Date/Time: Feb 16 2024 2:48P Dictated by : MEHNAZ LOBATO MD This examination was interpreted and the report reviewed and electronically signed by: MEHNAZ LOBATO MD on Feb 16 2024 2:49PM [facility] DIVISION OF RADIOLOGY* * *Final Report* * [...] No other significant abnormality. DIVISION OF RADIOLOGYProvider, [facility] [place] - 02/16/2024 * * *Final Report* * [...] IMPRESSION IMPRESSION: MINIMAL DEGENERATIVE CHANGES RIGHT SHOULDER Enterprise Infrastructure Architect: [employer] Transcribe Date/Time: Feb 16 2024 2:48P Dictated by : MEHNAZ LOBATO MD This examination was interpreted and the report reviewed and electronically signed by: MEHNAZ LOBATO MD on Feb 16 2024 2:49PM [facility] ClinicRadiology Study observation (narrative)[facility]XR Shoulder - right 3 ViewsOrdered By: [facility] Provider on 29-51-8816Wpxcvariu ClinicXR Pelvis and Hip - right AP and Lateral frogon 83-13-8437IBXBJVSNOC: Right hip grossly unremarkable. Enterprise Infrastructure Architect: [employer] Transcribe Date/Time: Jan 31 2024 2:13P Dictated by : PORFIRIO MURPHY MD This examination was interpreted and the report reviewed and electronically signed by: PORFIRIO MURPHY MD on Jan 31 2024 2:14PM [facility] DIVISION OF RADIOLOGY* * *Final Report* * [...] in the lower abdomen. DIVISION OF RADIOLOGYProvider, [facility] [place] - 01/31/2024 * * *Final Report* * [...] abdomen. IMPRESSION IMPRESSION: Right hip grossly unremarkable. Enterprise Infrastructure Architect: [facility] Transcribe Date/Time: Jan 31 2024 2:13P Dictated by : PORFIRIO MURPHY MD This examination was interpreted and the report reviewed and electronically signed by: PORFIRIO MURPHY MD on Jan 31 2024 2:14PM [facility] ClinicRadiology Study observation (narrative)[facility] HospitalXR Pelvis and Hip - right AP and Lateral frogOrdered By: [facility] Provider on 01-31-2024 [facility] HospitalCALCIUMon 05-43-7618Nyltsoz [Mass/Vol]9.4 mg/dLNormal8.5-10.1[facility] HospitalComment on above:Performed By: #### LAZARUS CRUZ #### [facility] [address] [address] [address] Lori MarionINEon 61-87-6893Ohwruejpis [Mass/Vol]0.64 mg/dLNormal 0.55-1.02[facility] HospitalComment on above:Performed By: #### LAZARUS CRUZ #### [facility] [address] [place], [place] [address] Dr. Lori ClaireGFR-AF CYPRIOT>60Normal>=60The [facility]riners HospitalComment on above:Performed By: #### LAZARUS CRUZ #### [facility] [address] [place], [place] [address] Dr. Lori ClaireGFR-NON AF CYPRIOT>60Normal>=60The [facility] HospitalComment on above:Performed By: #### LAZARUS CRUZ #### [facility] [address] [place], [place] [address] Dr. Lori BautistaCT LUNG CANCER SCREENINGon [id number] LUNG CANCER SCREENING EXAMINATION: CT LUNG CANCER [...] authenticated by: VERONICA DUNCAN Date: 2022-09-10 14:57NormalThe [facility]riners HospitalINSULINon 21-87-7846Oedpffb1.3 uIU/mLNormal2.6-24.9[facility] HospitalComment on above:Performed By: #### INSULIN #### [facility] [address] [place] [address] Dr. Lori Nugent AUTO DIFFon [id number] #0.1 103/ulNormal0.0-0.1[facility] HospitalComment on above:Performed By: #### CBC #### [facility] [address] [place] [address] Dr. Lori BautistaBasophils/100 WBC (Bld)0.6 %Normal0.2-2.0[facility] Comment on above:Performed By: #### CBC #### [facility] [address] [place] [address] Dr. Lori Holliday #0.1 103/ulNormal0.0-0.7The [facility]ers HospitalComment on above: Performed By: #### CBC #### [facility] [address] [place] [address] Dr. Lori Claireosinophils/100 WBC (Bld)0.6 %Critically low0.9-7.0The [facility] HospitalComment on above:Performed By: #### CBC #### [facility] [address] [place] [address] Dr. Lori Clairerythrocyte distribution width (RBC) [Ratio]13.2 %Sugkwr59.0-15.0 The [facility] HospitalComment on above:Performed By: #### CBC #### [facility] [address] [place] [address] Dr. Lori BautistaHematocrit (Bld) [Volume fraction]41.3 %Hxwfir97.0-48.0The [facility] HospitalComment on above:Performed By: #### CBC #### [facility] [address] [place] [address] Dr. Lori BautistaHemoglobin (Bld) [Mass/Vol]13.5 g/gZVyaawt08.0-16.0The [facility] on above:Performed By: #### CBC #### [facility] [address] [place] [address] Dr. Lori Trinidad #0.02 10e3/ulNormal0.00-0.03The [facility] HospitalComment on above:Performed By: #### CBC #### [facility] [address] [place] [address] Dr. Lori Trinidad %0.3 %Normal0.0-0.5The [facility] HospitalComc.[facility] on above: Performed By: #### CBC #### [facility] [address] [place] [address] Dr. Lori Whitlock #2.0 103/ulNormal1.2-3.8The [facility] HospitalComment on above:Performed By: #### CBC #### [facility] [address] [place] [address] Dr. Lori Garciahocytes/100 WBC (Bld)25.6 %Xgceyi48.5-60.0The [facility] HospitalComc.[facility] on above:Performed By: #### CBC #### [facility] [address] [place] [address] Dr. Lori CorriganUAL DIFF REQNONormalThe [facility] HospitalComment on above: Performed By: #### CBC #### [facility] [address] [place] [address] Dr. Lori Henriquez (RBC) [Entitic mass]31.1 htSpywhq61.7-34.0The [facility] HospitalComment on above:Performed By: #### CBC #### [facility] [address] [place] [address] Dr. Lori Henriquez (RBC) [Mass/Vol]32.7 g/nSMzxevi47.9-35.2The [facility] HospitalComment on above:Performed By: #### CBC #### [facility] [address] [place] [address] Dr. Lori HenriquezV (RBC) [Entitic vol]95.2 tERjtvfq32.0-99.0The [facility] on above:Performed By: #### CBC #### [facility] [address] [place] [address] Dr. Lori Pardo #0.7 103/ulNormal0.3-0.8The [facility] HospitalComment on above:Performed By: #### CBC #### [facility] [address] [place] [address] Dr. Lori Arthurocytes/100 WBC (Bld)8.4 %Normal1.7-12.0The [facility] Comment on above:Performed By: #### CBC #### [facility] [address] [place] [address] Dr. Lori KeatingUT #5.0 103/ulNormal1.4-6.5The [facility] on above:Performed By: #### CBC #### [facility] [address] [place] [address] Dr. Lori Keatingutrophils/100 WBC (Bld)64.5 %Qztzkx57.0-75.0The [facility] on above:Performed By: #### CBC #### [facility] [address] [place] [address] Dr. Lori Beaverlet mean volume (Bld) [Entitic vol]9.9 fLNormal9.5-13.5The [facility] on above:Performed By: #### CBC #### [facility] [address] [place] [address] Dr. Lori BautistaPLT310 103/ozQlxsrp303-208Opr [facility] on above: Performed By: #### CBC #### [facility] [address] [place] [address] Dr. Lori BautistaRBC4.34 106/ulNormal4.20-5.40The [facility] on above:Performed By: #### CBC #### [facility] [address] [address] [address] Lori BautistaWBC7.8 103/ulNormal4.0-11.0The [facility] on above: Performed By: #### CBC #### [facility] [address] [address] [address] Lori BautistaFRYANI THYROXINE INDEX T7on 29-42-6069IKO2.02Ijsgdp8.30-4.50The [facility] on above:Performed By: #### LIPID, TSH, T7, CMP ####[facility] [address] [address]DrClarence BautistaT3U31.0 %Wsirxz02.0-39.0The [facility] on above: Performed By: #### LIPID, TSH, T7, CMP ####[facility] [address] [address]DrClarence BautistaT4 [Mass/Vol]7.30 ug/dLNormal 4.80-13.90The [facility] on above:Performed By: #### LIPID, TSH, T7, CMP ####[facility] [address] [address]Dr. Lori BautistaGLYCOHEMOGLOBIN A1Con 86-01-6890QAA RECOMMENDATIONSEE BELOW NormalThe [facility] [place] on above:Result Comment: ADA RECOMMENDED LIMIT 4.0 - 6.0 ADA THERAPEUTIC TARGET < 7.0 ACTION SUGGESTED > 7.0Performed By: #### A1C #### [facility] [address] [address] [address] Lori BautistaGlucose [Mass/Vol]117 mg/dLNormalThe [facility] [place] on above:Performed By: #### A1C #### [facility] [address] [address] [address] Lori BautistaHbA1c (Bld) [Mass fraction]5.7 %Normal4.5-6.2The [facility] on above:Performed By: #### A1C #### [facility] [address] [place], [place] [address] Dr. Lori Wilburn 28-09-3746Qoto [Mass/Vol]105.0 ug/qAVoelnd29.0-170.0The [facility] HospitalComment on above:Performed By: #### IRON, VITAD ####[facility] [address] [address]Dr. Lori ChangLIPID PROFILEon 13-77-1862CRBR-HDL RATIO NORMSEE [facility] Comment on above:Result Comment: 3.3 - 4.4 LOW RISK 4.4 - 7.1 AVERAGE RISK 7.1 - 11.0 MODERATE RISK >11.0 HIGH RISKPerformed By: #### LIPID, TSH, T7, CMP ####[facility] [address] [address]Dr. Lori ChangCholesterol [Mass/Vol]186 mg/dLNormal<=200The [facility] Comment on above:Performed By: #### LIPID, TSH, T7, CMP ####[facility] [address] [address]Dr. Lori ChangCholesterol in HDL [Mass/Vol]55 mg/eAWtmarr08-27Eyi [facility] HospitalComment on above: Performed By: #### LIPID, TSH, T7, CMP ####[facility] [address] [address]Dr. Yilan ChangCholesterol in LDL [Mass/Vol] 116.4 mg/dLNoMercy Health Willard HospitalComment on above:Performed By: #### LIPID, TSH, T7, CMP ####[facility] [address] [address]Dr. Lori ChangCholesterol.total/Cholesterol in HDL [Mass ratio]3.4 {ratio}NormalBellevue HospitalComment on above:Performed By: #### LIPID, TSH, T7, CMP ####[facility] [address] [address]Dr. Lori ChangHDL NORMAL> or = 60 mg/dl - LOW CARDIOVASCULAR RISK <40 mg/dl - HIGH CARDIOVASCULAR RISKTogus VA Medical Center on above: Performed By: #### LIPID, TSH, T7, CMP ####[facility] [address] [place], [place] [address]Dr. Yicira ChangLDL CALC NORMALSEE BELOWUniversity Hospitals Samaritan Medical CenterComment on above:Result Comment: <100 mg/dl OPTIMAL 100 - 129 mg/dl NEAR OR ABOVE OPTIMAL 130 - 159 mg/dl BORDERLINE HIGH 160 - 189 mg/dl HIGH >190 mg/dl VERY HIGHPerformed By: #### LIPID, TSH, T7, CMP ####[facility] Xih[address]la[address] [place], [place] [address]Dr. Lori BautistaTriglyceride [Mass/Vol]73 mg/dLNormal<=150The [facility] on above:Performed By: #### LIPID, TSH, T7, CMP ####[facility] W[address]em[address]ab[address] [place], [place] [address]Dr. Lori BautistaVLDL CALC14.6 mg/dLNoMercy Health Willard HospitalComc.s[facility] on above:Performed By: #### LIPID, TSH, T7, CMP ####[facility] Usp[address] [place], [place] [address]Dr. Lori BautistaPROF 14(COMP METB)on 50-05-2892Bjkhzlo [Mass/Vol]3.9 g/dLNormal3.4-5.0The [facility] on above:Performed By: #### LIPID, TSH, T7, CMP ####[facility] Xfq[address]eg[address] [place], [place] [address]Dr. Lori Bautista Albumin/Globulin [Mass ratio]1.2 {ratio}NormalThe [facility] [place] on above:Performed By: #### LIPID, TSH, T7, CMP ####[facility] S[address]akgdxsr[address] [place], [place] [address]Dr. Lori BautistaALP [Catalytic activity/Vol]68 U/ORsldrg71-071Phm [facility] on above:Performed By: #### LIPID, TSH, T7, CMP ####[facility] Oz[address]xoxv[address] [place], [place] [address]Dr. Yilan ChangALT [Catalytic activity/Vol]20 U/L Sjadrc75-23Ymd [facility] HospitalComment on above:Performed By: #### LIPID, TSH, T7, CMP ####[facility] [address] [address]Dr. Yilan ChangAnion gap [Moles/Vol]8.2 mmol/LNormalThe [facility] Comment on above:Performed By: #### LIPID, TSH, T7, CMP ####[facility] [address] [address]Dr. Yilan ChangAST [Catalytic activity/Vol]22 U/RXtffhw94-95Low [facility] HospitalComment on above:Performed By: #### LIPID, TSH, T7, CMP ####[facility] Nffqrkov[address] [place], [place] [address]Dr. Yilan ChangBilirubin [Mass/Vol]0.3 mg/dLNormal 0.2-1.0The [facility] HospitalComc.[facility] on above:Performed By: #### LIPID, TSH, T7, CMP ####[facility] P[address] [place], [place] [address]Dr. Yilan ChangCalcium [Mass/Vol]9.2 mg/dLNormal8.5-10.1The [facility] Comment on above:Performed By: #### LIPID, TSH, T7, CMP ####[facility] [address] [address]Dr. Yilan ChangChloride [Moles/Vol]105 mmol/IBnlvub97-526Wzf [facility] HospitalComment on above:Performed By: #### LIPID, TSH, T7, CMP ####[facility] [address] [place], [place] [address]Dr. Yilan ChangCO2 [Moles/Vol]30.0 mmol/LNormal 21.0-32.0The [facility] HospitalComment on above:Performed By: #### LIPID, TSH, T7, CMP ####[facility] Afmqnoefpe[address] [place], [place] [address]Dr. Yilan ChangCreatinine [Mass/Vol]0.67 mg/dLNormal0.55-1.02The [facility] on above:Performed By: #### LIPID, TSH, T7, CMP ####[facility] Cndwmrgfnc[address] [place], [place] [address]Dr. Yilan ChangEGFR- AF CYPRIOT>60Normal>=60The [facility] on above:Performed By: #### LIPID, TSH, T7, CMP ####[facility] Plwvhx[address]ww[address] [place], [place] [address]Dr. Yilan ChangEGFR-NON AF CYPRIOT>60Normal>=60The [facility] HospitalComment on above:Performed By: #### LIPID, TSH, T7, CMP ####[facility] Uzhbbr[address] [place], [place] [address]Dr. Yilan ChangGlobulin (S) [Mass/Vol]3.3 g/dLNormalThMorrow County HospitalComc.[facility] on above:Performed By: #### LIPID, TSH, T7, CMP ####[facility] Kacocitehs[address] [place], [place] [address]Dr. Yilan ChangGlucose [Mass/Vol]84 mg/hMQatqvt79-300Lyf [facility] on above:Performed By: #### LIPID, TSH, T7, CMP ####[facility] Uqsonlkw[address] [place], [place] [address]Dr. Yilan ChangPotassium [Moles/Vol]4.2 mmol/LNormal 3.5-5.1The [facility] on above:Performed By: #### LIPID, TSH, T7, CMP ####[facility] Rmkgtikejf[address] [place], [place] [address]Dr. Yilan ChangProtein [Mass/Vol]7.2 g/dLNormal6.4-8.2The [facility] on above:Performed By: #### LIPID, TSH, T7, CMP ####[facility] Pzlq[address]eqaos[address] [place], [place] [address]Dr. Yilan ChangSodium [Moles/Vol]139 mmol/LUdvsdv748-152Off [facility] on above: Performed By: #### LIPID, TSH, T7, CMP ####[facility] [address] [address]Dr. Lori BautistaUrea nitrogen [Mass/Vol]18.0 mg/dLNormal7.0-18.0Bellevue HospitalComment on above:Performed By: #### LIPID, TSH, T7, CMP ####[facility] [address] [address]Dr. Lori ChangUrea nitrogen/Creatinine [Mass ratio] 26.9 mg/mgNoMercy Health Willard HospitalComment on above:Performed By: #### LIPID, TSH, T7, CMP ####[facility] [address] [address]Dr. Lori BautistaTSHon 03-40-7134HPH9.615 uIU/mLNormal0.358-3.740Bellevue HospitalComment on above:Performed By: #### LIPID, TSH, T7, CMP ####[facility] [address] [address]Dr. Lori Bautista VITAMIN D 25 OHon 97-12-3311IJG D 25-OH73.1 ng/mLNormalBellevue Hospital Comment on above:Performed By: #### IRON, VITAD ####[facility] Nxfnwdxikq[address] [place], [place] [address]Dr. Lori MicheleVIT D RANGES SEE BELOWUniversity Hospitals Samaritan Medical CenterComment on above:Result Comment: <20 ng/mL Vit D deficient 20 - <30 ng/mL Vit D insufficient 30 - 100 ng/mL Vit D sufficient >100 ng/mL Potential ToxicityPerformed By: #### IRON, VITAD ####[facility] [address]ks[address] [place], [place] [address]Dr. Lori BautistaMG MAMM SCREEN 3D APPLE CADon 29-09-8392VO MAMM SCREEN 3D APPLE CAD Patient: NEVAEH THOMAS Exam Date: 08/04/2022 : 1945 Gender:F Ordering : DR CATALINA CERVANTES Admission #: [id number] Family : Order #: [id number] CLICK HERE TO VIEW EXAM RADIOLOGY REPORT [...] lung cancer at age 84. LOCATION: [facility] BREAST COMPOSITION: Heterogeneously dense,which may obscure [...] by: Veronica Duncan MD on 08/04/2022 at 13:25NoMercy Health Willard Hospital Covid-19 PCR (CVDTBH)on 53-11-1021AVHN-CoV-2 (COVID-19) RNA PABLO+probe Ql (Unsp spec)Not detectedNormalNOT DETECTEDThe [facility] HospitalComment on above:Result Comment: This test is not yet approved or cleared by the [place] FDA. When there are no FDA-approved or cleared tests available, and other criteria are met, FDA can make tests available under an emergency access mechanism called an Emergency Use Authorization (EUA). The EUA for this test is supported by the [place] of Health and Human Service's (HHS's) declaration [...] consistent with SARS-CoV-2.Performed By: #### CVDTBH #### [facility] [address] [place] [address] Dr. Lori ChaudhariMATIC COVID-19 ANTIGENon 56-32-4245THY StatementSEE BELOW NormalThe [facility] [place] on above:Result Comment: This test has not [...] or authorization is revoked sooner.Performed By: #### ARLENEAGNikolas #### [facility] [address] [place] [address] Dr. Lori Cole-CoV-2 (COVID-19) RNA PABLO+probe Ql (Unsp spec)NegativeNormal NEGATIVEThe [facility] on above:Performed By: #### CVDAGS #### [facility] [address] [place] [address] Dr. Lori BautistaCALCIUMon 74-28-0165Hsnrazb [Mass/Vol]9.6 mg/dLNormal8.5-10.1The [facility] HospitalComment on above:Performed By: #### LAZARUS CRUZ ####[facility] [address] [place], [place] [address]Dr. Lori Bautista CREATININEon 86-73-2917Zgrtkdeqad [Mass/Vol]0.68 mg/dLNormal0.55-1.02The [facility] HospitalComment on above:Performed By: #### LAZARUS CRUZ ####[facility] Q[address] [place], [place] [address]DrClarence Sandoval ChangEGFR- AF AMERICANNormal>=60The [facility] on above:Performed By: #### LAZARUS CRUZ ####[facility] [address] [place], [place] [address]Ld. Lori ChangEGFR-NON AF AMERICANNormal>=60The [facility] HospitalComment on above:Performed By: #### LAZARUS CRUZ ####[facility] [address] [place], [place] [address]Yj. Lori ChangXR DEXA BONE DENSITYon 03-29-2022 XR DEXA [...] Electronically authenticated by: ABBE WEBSTER Date: 2022-03-29 12:[address] [place], [place] [address]XR KUB 1 VIEWon 69-25-3689PE KUB 1 VIEWEXAMINATION: XR KUB 1 VIEW [...] Electronically authenticated by: ABBE WEBSTER Date: 2021-12-18 15:[address] [place] [address] Encounters Encounter DateEncounter TypeCare ProviderFacilityStart: 50-63-7932chosnmwhwy Davon Quiroz NILLFacility:[facility]art: 56-62-6786bqdkhqxvyaNrsbzgd NILL Facility:[facility]: 03-06-2025 End: 25-21-4833Jcpzglz encounter procedureCatalino London OD Work Phone: OphthalmologyComment on above: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); Drusen of macula; Keratoconjunctivitis sicca of both eyes not specified as Sjogren's; Vitreous degeneration, bilateral; Pseudophakia of both eyesStart: 03-06-2025 End: 21-75-8659ztlxzsgxqyITJXWLB S LOUDENSLAGERFacility:[facility] Troytart: 11-06-2024 End: 04-46-8317hdlibemkloWlmdjrw M [facility] Work Phone: Start: 11-06-2024 End: 12-19-5034Fikkovhr ReferredLoni Covarrubias MD Work Phone: [facility]-LAB Path Spec Makayla HospStart: 10-02-2024 End: 67-50-7027Gipiwx outpatient new 30 minutesEugene Richie Rich DPM Work Phone: NOGX SWS PODIATRYComment on above:Pain of right foot (Primary Dx); Plantar keratosis; Right foot pain; Corns and callositiesStart: 10-02-2024 End: 09-26-8266tzfkoajjayHFDDMJ Richie Hui AvailableStart: 04-23-2024 End: 23-88-8296Ndngotlux encounterMarcy Estrella DO Work Phone: Internal MedicineComment on above:OrdersStart: 03-27-2024 End: 05-34-1598ttohfvdzznBJESU D PATELFacility:[facility] Troytart: 03-27-2024 End: 02-88-7383Qpifatd encounter procedureMarcy Pappas Estrella DO Work Phone: OrthopaedicsComment on above:Tendinopathy of right rotator cuff (Primary Dx); Degenerative tear of acetabular labrumStart: 03-05-2024 End: 43-62-7424Qzxtsov encounter procedureRandakerry S Madisynenslager OD Work Phone: OphthalmologyComment on above:Keratoconjunctivitis sicca of both eyes not specified as Sjogren's (Primary Dx); Retinal pigment epithelial mottling of macula; Drusen of right macula; Vitreous degeneration, bilateral; Pseudophakia of both eyesStart: 64-65-0078ckloqldhdjKwnfbj A Radman RT(R) RadiologyComment on above:Radiology XRStart: 02-16-2024 End: 93-47-7836Tabvnze encounter procedureCynthia Donato RT(R)[facility] Comment on above:Tendinopathy of right rotator cuff (Primary Dx); Impingement syndrome of right shoulderStart: 02-16-2024 End: 68-79-4031Lxzfmeegnj hospital visit by physicianBryson Arana 1 Work Phone: RadiologyComment on above:Acute pain of right shoulder [M25.511]Start: 01-31-2024 End: 94-80-7178Egtdypw encounter procedureMarcy Estrella DO Work Phone: OrthopaedicsComment on above:Degenerative tear of acetabular labrum (Primary Dx); Pain in right hip; Primary osteoarthritis of right hipStart: 01-31-2024 End: 85-98-5517Nqnzumbrpg hospital visit by physicianBryson Arana 1 Work Phone: RadiologyComment on above:Pain [R52]Start: 02-28-2023 End: 39-59-7907Ktlnsnc encounter procedureRanarturo S Madisynenslager OD Work Phone: OphthalmologyComment on above:Vitreous degeneration, bilateral (Primary Dx); Floaters in visual field, bilateral; Keratoconjunctivitis sicca of both eyes not specified as Sjogren's; SPK (superficial punctate keratitis), bilateral; Pseudophakia of both eyes; Retinal pigment epithelial mottling of macula; Drusen of right maculaStart: 12-07-2022 End: 00-11-2064cjlgblyrbsUP LONI HOYFacility:V6Tdark: 09-10-2022 End: 72-47-5985xqvwqagtxuIB LONI HOYFacility:W1Ugzau: 08-27-2022 End: 48-56-9981kzmbwpkjoyMY LONI HOYFacility:O9Kgtay: 08-04-2022 End: 31-34-6823nhlpucloklPS CATALINA BRUNERFacility:W3Nyzya: 05-12-2022 End: 50-09-7259dwqsheuibqDQ LONI HOYFacility:X4Scauc: 05-04-2022 End: 94-13-9452icxqjgvfnnYN LONI HOYFacility:D5Jcsiz: 03-29-2022 End: 93-69-1130ouqenvcdrcIQ LONI HOYFacility:Y8Tytmg: 12-18-2021 End: 13-09-9897fjaariyecdLJPZNELY MURPHYFacility:H1 Procedures DateProcedureProcedure DetailPerforming ClinicianStart: 64-85-7978Qgfxupggnwra ophthalmic imaging retinaRandall S Stephanielager OD Work Phone: Start: 75-60-6000Tduj stain microscopyLoni Covarrubias MD Work Phone: Start: 56-64-3914Khgca shoulder complete minimum 2 viewsVizion Pappas Estrella DO Work Phone: Start: 76-93-6930Mdslj hip unilateral with pelvis 2-3 viewsVikas D Estrella DO Work Phone: Plan of Treatment DateCare ActivityDetailAuthorStart: 10-69-0366UNJ MACULA CIRRUS OU (BOTH EYES) OCT MACULA CIRRUS OU (BOTH EYES) OP[facility] Imaging Routine Retinal pigment epithelial mottling of maculaDrusen of macula Expected: 02/24/2027[facility] Work Phone: Comment on above:Expected: 02/24/2027Start: 08-01-2026 Urine microalbumin profileDTaP,Tdap,Td Vaccine (3 - Td or Tdap)[facility] Start: 88-76-4771UJA MACULA CIRRUS OU (BOTH EYES)OCT MACULA CIRRUS OU (BOTH EYES) [facility] Imaging Routine Retinal pigment epithelial mottling of maculaDrusen of right macula Expected: 02/23/2026[facility] Work Phone: Comment on above:Expected: 02/23/2026Start: 03-06-2025 End: 90-83-8141Oueoscc encounter yjwlbhurk06/30/2025 1:30 PM EDT Office Visit OPHT Ophthalmology [address] [place] [address] Catalino London S, OD [address] [place] [address] Annual Eye examOphthalmologyComment on above:Annual Eye examStart: 96-57-5028YCZ MACULA CIRRUS OU (BOTH EYES)OCT MACULA CIRRUS OU (BOTH EYES) OPHT Imaging Routine Retinal pigment epithelial mottling of maculaDrusen of right macula Expected: 02/17/2025[facility] Work Phone: Comment on above:Expected: 02/17/2025Start: 11-07-2024 Advance Directive DiscussionAdvance Directive DiscussionMercy Health St. Elizabeth [facility] Hospitaltart: 52-62-9232Dghiyou CultureAerobic CultureFulton County Health Centertart: 58-33-5056Kdqwlawwu culture of sputumFulton County Health Centertart: 08-23-4509Nvkva-19 Vaccine ( season)Covid-19 Vaccine ( season)[facility] Hospitaltart: 03-14-4369Llsad-19 Vaccine ( season) Covid-19 Vaccine ( season)[facility] Hospitaltart: 02-05-2596Baiildczk vaccinationMercy Health St. Elizabeth [facility] Hospitaltart: 64-07-6865Klssvgho ScreeningDiabetes Screening [facility] Hospitaltart: 03-27-2024 End: 05-15-8344Iexrkpv encounter vylterdty31/21/2024 1:15 PM EDT Office Visit Orthopaedics [address] [place] [address] Marcy Estrella, DO [address] [place] [address] 8 week right hip painOrthopaedicsComment on above:8 week right hip pain Start: 28-31-5702Hledhzx Directive DiscussionAdvance Directive Discussion [facility] Hospitaltart: 72-36-7757Qrcxefjcwi Health ScreeningBehavioral Health ScreeningMercy Health St. [facility] Hospitaltart: 20-03-4360Kcbhrjreoa AssessmentDepression AssessmentMercy Health St. [facility] Hospitaltart: 30-52-0284Cyvcj-19 Vaccine ( season) Covid-19 Vaccine ( season)[facility]: 83-55-7893Brguypyrw vaccinationInfluenza Vaccine (#1)[facility]tart: 95-15-5826ANWDXVK DIRECTIVE DISCUSSIONADVANCE DIRECTIVE DISCUSSIONMercy Health St. Elizabeth [facility] Hospitaltart: 27-14-2937NUEDWQTCPE ASSESSMENTDEPRESSION ASSESSMENTMercy Health [facility]: 03-97-0896VLQRX-19 VACCINE (4 - Booster for Pfizer series)COVID-19 VACCINE (4 - Booster for Pfizer series)[facility]: 34-16-0990OAU Vaccine (1 - 1- dose 75+ series)RSV Vaccine (1 - 1-dose 75+ series)[facility]: 03-63-9722RWDV DENSITYBONE DENSITYMercy Health St[facility]: 92-09-3283Vchsbsalh for osteoporosisBone Density ScreeningMercy Health St. [facility]: 81-29-2550MWM Vaccine (1 - 1-dose 60+ series)RSV Vaccine (1 - 1-dose 60+ series)[facility]: 38-77-3447Ujllmvhig vaccinationLUNG CANCER SCREENINGMercy Health St. [facility]: 53-76-8920Wmzdxqsfw for malignant neoplasm of lungLung Cancer ScreeningMercy Health St. [facility]: 19-70-7842JWOVQUAH VACCINE (1 of 2)SHINGRIX VACCINE (1 of 2) [facility]: 63-06-1790BGOWCWTH SCREENDIABETES SCREENMorrow County Hospital Start: 34-05-9466Znioo microalbumin profileDTAP,TDAP,TD (1 - Tdap)[facility]: 00-92-2682FRPWJV PCP TEAM CHRONIC DISEASE VISITANNUAL PCP TEAM CHRONIC DISEASE VISITMercy Health St[facility]: 68-51-8465Ajpamun ScreeningAnxiety ScreeningMercy Health St. [facility]: 31-82-9962Xwrlnyzbvv ScreeningDepression ScreeningMercy Health St. [facility]: 54-73-2719KNDCAMPZY C SCREENINGHEPATITIS C SCREENINGMercy Health St[facility]: 61-54-9974Rbmmsxwsh C screeningHepatitis C ScreeningMercy Health St. [facility]: 03-87-0944TALJYATZCAKWAUJUVJGRGkdojsoag Clinic Start: 03-22-2995OVKBODSFGQYR: 65+ (1 - PCV)PNEUMOCOCCAL: 65+ (1 - PCV)[facility] HospitalOCT MACULA CIRRUS OU (BOTH EYES)OCT MACULA CIRRUS OU (BOTH EYES) OPHT Imaging Routine Retinal pigment epithelial mottling of maculaDrusen of right macula 02/28/2023 5:04 PM [facility]TCLima [facility] Work Phone: [facility] Immunizations Immunization DateImmunizationNotesCare LzgxbfqgTumgdovj95-26-3645ybedzfpvc virus vaccine, unspecified formulationMarcy Estrella DO Work Phone: [facility] Payers DatePayer CategoryPayerPolicy [id number]-pay2020Medicare (Managed Care)[id number] [id number] [id number] 2..1.917882.3.57[id number] 2..1.392759.3.57[id number] 2..1.029558.3.57[id number] 2.16.840.1.771868.3.57[id number] 2.16.840.1.174353.3.57[id number] 2.16.840.1.755044.3.57[id number] 2.16.840.1.816097.3.57[id number] 2.16.840.1.176783.3.57[id number] 2.16.840.1.901004.3.57[id number] 2.16.840.1.88[id number] Health [id number]-ygds-[id number]-i46x-[id number] /[id number] [id number]-5554-[id number] MCR [id number] 2.0.1.138634.3.579.2.531 Social History DateTypeDetailFacilityStart: 11-12-2020 End: 78-43-2124Vmssqaw smoking status NHISSmokes tobacco dailyMorrow County Hospital Work Phone: History of tobacco useCigarette SmokerMorrow County Hospital Work Phone: Start: 11-12-2020 End: 13-90-8688Eiimkkawlm smoked current (pack per day) - Zlcwtkxa8Nsdeqydzi ClinicStart: 11-12-2020 End: 50-57-0631Rklrtgc use and exposureSmokeless tobacco non-userMorrow County Hospital Work Phone: Start: 02-28-2023 End: 49-10-9516Skccgnz intakeLifetime non-drinker (finding)[facility] Start: 99-42-3431Kjgyafu SDOH Alcohol Igawfiryk0Inoryqvwk ClinicStart: 19-24-7354Lrj Assigned At BirthFemaleCOhioHealth Shelby Hospitaltart: 09-09-2020 End: 33-57-8356Tzktsoz Use Disorder Identification Test - Consumption [AUDIT-C] [facility] HospitalHow often to you have a drink containing alcohol?NeverMorrow County HospitalAverage Number of DrinksNot on fileMercy Health St. [facility]: 64-95-7435Owlhza identityIdentifies as female gender (finding)[facility]: 09-08-2020 Sexual orientationHeterosexual (finding)[facility]: 10-02-2024 Alcoholic beverage intakeEx-drinker (finding)[facility] HealthcareTobacco smoking status NHISUnknown if ever smokedMercy Health St[facility] Work Phone: Start: 64-99-6798VqgQarwxw (finding)[facility] Medical Equipment Procedure CodeEquipment CodeEquipment Original TextEquipment IdentifierDatesLens Iol 0d +15 Derik Uv Abs - [id number]: 87-68-4839Qsrekgi on above:Description: -0.26Lens Iol 0d +15 Derik Uv Abs - [id number] Start: 38-45-5541Eyfxxiu on above:Description: -0.33 Clinical Notes 02-28-2023 to 03-06-2025 Note Date & WighSxozFjqmatzm91-24-7161 NoteDate of Procedure 03/06/2025. [employer] Developer Information Cork Compounder: . OCT Macula Interpretation Right Eye Normal foveal contour. Findings include Drusen, RPE Irregularity; Negative for Intraretinal fluid, Subretinal fluid. Left Eye Normal foveal contour. Findings include Drusen, RPE Irregularity; Negative for Intraretinal fluid, Subretinal fluid. Interval Change Right Eye Stable. Left Eye Stable.SOJSY15-98-7958 NoteHNO ID: [id number] Author: CATALINO LONDON, OD Service: ? Author Type: MULTIGRAPH OPERATOR Type: Progress Notes Filed: 03/06/2025 14:50 Note [...] magnifiers if needed March 06, 2025 2:43 [facility]04-30-2025 History of Present illness Narrative * Catalino London S, OD - 03/06/2025 2:43 PM EDT ASSESSMENT/PLAN: [...] 06, 2025 2:43 PM documented in this encounterMorrow County Hospital11-26-2024 History of Present illness Narrative* Dariusz Quiroz Torie, SURYM - 10/02/2024 1:30 PM EST Reason for [...] infection. 6. Reappoint p.r.n. documented in this encounterEastern [facility] HospitalPwohnhpwnk91-69-8903 Telephone encounter Note* Telephone Encounter - Victoria Watson - 04/23/2024 10:58 AM EDT April from [facility] is calling Marcy Estrella DO today with concern regarding evaluation that was faxed on February 20. Requested provider's signature to be faxed with it. Please advise. Patient has been identified by name and birthdate. Duration of symptoms: N/A Person calling: April Call patient at: [phone] ext [phone] Was an appointment scheduled: No Closing statement: Results or non-symptom based questions: Thank you for calling [facility], your call will be returned within the next business day. Thank you, Victoria Watson [facility]06-17-2024 Miscellaneous Notes* Telephone Encounter - Victoria Watson - 04/23/2024 10:58 AM EDT April from [facility] is calling Marcy Estrella DO today with concern regarding evaluation that was faxed on February 20. Requested provider's signature to be faxed with it. Please advise. Patient has been identified by name and birthdate. Duration of symptoms: N/A Person calling: April Call patient at: [phone] ext [phone] Was an appointment scheduled: No Closing statement: Results or non-symptom based questions: Thank you for calling [facility], your call will be returned within the next business day. Thank you, Victoria Watson documented in this encounterMorrow County Hospital05-21-2024 NoteHNO ID: [id number] Author: MARCY ESTRELLA DO Service: ? Author [...] tolerated Follow-up as needed Procedures Marcy Estrella [facility]05-21-2024 History of Present illness Narrative* Marcy [...] Procedures Marcy Estrella DO documented in this encounterMorrow County Hospital04-29-2024 History of Present illness Narrative* Catalino London OD - 03/05/2024 5:03 PM EDT Documentation transcribed from Paper notes from [facility] Downtime ASSESSMENT/PLAN: 1. Keratoconjunctivitis sicca of [...] 05, 2024 5:03 PM documented in this encounterMorrow County Hospital04-11-2024 History of Present illness Narrative* Cynthia Donato [...] PATIENT PRESENTS WITH AN IMPLANTABLE OR ATTACHED EARLY CHILDHOOD SPECIALIST: No RADIOLOGY DEPARTMENT: General X-ray: Exam(s) Completed: Upper Extremity X- Ray(s): Shoulder, AP / TRUE AP / AXILLARY right PERIPHERAL IV DATA: Not applicable SIGNED BY: RT Anthony(R) February 16, 2024 1:02 PM documented in this encounterMorrow County Hospital04-11-2024 History of Present illness Narrative* Marcy Estrella [...] documented. Marcy Estrella DO documented in this encounterMorrow County Hospital03-26-2024 History of Present illness Narrative* Marcy Estrella [...] documented. Marcy Estrella DO documented in this encounterMorrow County Hospital04-24-2023 History of Present illness Narrative* Catalino London, [...] 28, 2023 1:19 PM documented in this encounterMorrow County HospitalEvaluation note* Diagnosis Vitreous degeneration, bilateral- Primary Floaters in visual field, bilateral Keratoconjunctivitis sicca of both eyes not specified as Sjogren's Keratoconjunctivitis sicca, not specified as Sjogren's SPK (superficial punctate keratitis), bilateral Pseudophakia of both eyes Lens replaced by other means Retinal pigment epithelial mottling of macula Other retinal disorders 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 documented in this encounter [facility]* Diagnosis Degenerative tear of acetabular labrum- Primary Pain in right hip Pain in joint, pelvic region and thigh Primary osteoarthritis of right hip Primary localized osteoarthrosis, pelvic region and thigh [facility]* Diagnosis Tendinopathy of right rotator cuff- Primary Impingement syndrome of right shoulder Other affections of shoulder region, not elsewhere classified documented [facility] this [facility]* Diagnosis Keratoconjunctivitis sicca of both eyes not specified as Sjogren's- Primary Keratoconjunctivitis sicca, not specified as Sjogren's Retinal pigment epithelial mottling of macula Other retinal disorders 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, bilateral Pseudophakia of both eyes Lens replaced by other means documented in this encounter [facility]* Diagnosis Tendinopathy of right rotator cuff- Primary Degenerative tear of acetabular labrum documented [facility] this [facility]* Diagnosis Preop examination- Primary Preoperative examination, unspecified Combined forms of age-related cataract of both eyes Other and combined forms of senile cataract Chronic obstructive pulmonary disease, unspecified COPD type (HCC) Gastroesophageal reflux disease, unspecified whether esophagitis present Hyperlipidemia, unspecified hyperlipidemia type Tobacco abuse Tobacco use disorder Acute pain of right shoulder documented [facility] this [facility]* Diagnosis Preop examination- Primary Preoperative examination, unspecified Combined forms of age-related cataract of both eyes Other and combined forms of senile cataract Chronic obstructive pulmonary disease, unspecified COPD type (HCC) Gastroesophageal reflux disease, unspecified whether esophagitis present Hyperlipidemia, unspecified hyperlipidemia type Tobacco abuse Tobacco use disorder Pain Generalized pain documented [facility] this encounter [facility]* Diagnosis Pain of right foot- Primary Plantar keratosis Right foot pain Pain in soft tissues of limb Corns and callosities documented in this encounter [facility]Eval[facility] noteNo assessment information availableMercy Health St[facility] Work Phone: Evaluation note* Diagnosis Preop [...] by other means documented in this encounter [facility] for referral (narrative)* Diagnostic Procedure Only (Routine) - ClosedSpecialtyDiagnoses / ProceduresReferred By ContactReferred To ContactXR IMAGING Diagnoses Acute pain of right shoulder Procedures XR SHOULDER GENERAL 3V OR MORE AP/TRUE AP/OTHER RIGHT RADEX SHOULDER COMPLETE MINIMUM 2 VIEWS Marcy Estrella, DO [address] [place] [address] [place] [address] Ref[facility] [address] HospitalSthenrietta DateExpiration DateVisits RequestedVisits [id number] Auto-Generated Referral / [facility] for referral (narrative)* Diagnostic Procedure Only (Routine) - ClosedSpecialtyDiagnoses / ProceduresReferred By ContactReferred To ContactXR IMAGING Diagnoses Pain Procedures XR HIP GENERAL 3V PELV/AP/LAT RIGHT RADEX HIP UNILATERAL WITH PELVIS 2-3 VIEWS Marcy Estrella, DO [address] [place] [address] [place] [address] Ref[facility]Status[facility] DateExpiration DateVisits RequestedVisits [id number] Auto-Generated Referral / [facility] for visit Narrative* Diagnostic Procedure Only (Routine) - ClosedSpecialtyDiagnoses / ProceduresReferred By ContactReferred To Contact XR IMAGING Diagnoses Acute pain of right shoulder Procedures XR SHOULDER GENERAL 3V OR MORE AP/TRUE AP/OTHER RIGHT RADEX SHOULDER COMPLETE MINIMUM 2 VIEWS Marcy Estrella, DO [address] [place] [address] [place] [address] Referral IDStatusReasonSthenrietta DateExpiration DateVisits RequestedVisits [id number] Auto-Generated Referral / [facility] HospitalReason for visit Narrative* Diagnostic Procedure Only (Routine) - ClosedSpecialtyDiagnoses / ProceduresReferred By ContactReferred To Contact XR IMAGING Diagnoses Pain Procedures XR HIP GENERAL 3V PELV/AP/LAT RIGHT RADEX HIP UNILATERAL WITH PELVIS 2-3 VIEWS Marcy sEtrella, DO [address] [place] [address] [place] [address] Referral IDStatusReasonSthenrietta DateExpiration DateVisits RequestedVisits [id number] Auto-Generated Referral [facility] Summary Purpose Family History No Family [...] 1 Drop, BOTH EYES, DIRECTED, Starting on 02/28/23 at 1230, Until Tue03/01/23 at 0029, Administer for dilation, OPHT CLINIC MED ORDERS Given02/28/2023 12:30 PM EDT1 Drop Reason for Referral SpecialtyDiagnoses / ProceduresReferred By ContactReferred To ContactREHAB AND SPORTS THERAPY INS Diagnoses Pain in right hip Procedures CONSULT TO PHYSICAL THERAPY PHYSICAL THERAPY EVALUATION HIGH COMPLEX 45 MINS Marcy Estrella, DO [address] [place] [address] [facility] [address] [address] Referral IDStatusReasonStart DateExpiration DateVisits RequestedVisits [id number] Review Auto-Generated Referral /[id number] / ProceduresReferred By ContactReferred To ContactREHAB AND SPORTS THERAPY INS Diagnoses Tendinopathy of right rotator cuff Impingement syndrome of right shoulder Procedures CONSULT TO PHYSICAL THERAPY PHYSICAL THERAPY EVALUATION HIGH COMPLEX 45 MINS Marcy Estrella, DO [address] [place] [address] [facility] [address] [address] Referral IDStatusReasonStart DateExpiration DateVisits RequestedVisits [id number] Review Auto-Generated Referral Additional Source Comments INFORMATION SOURCE (unrecogn ized section and content) DATE CREATED AUTHOR 12/07/2022 [facility] DATE CREATED AUTHOR AUTHOR'S ORGANIZ ATION 10/05/2024 [facility] DATE CREATED AUTHOR AUTHOR'S ORGANIZ ATION 11/18/2024 [facility] DATE CREATED AUTHOR AUTHOR'S ORGANIZ ATION 03/11/2025 [facility] DATE CREATED AUTHOR AUTHOR'S ORGANIZ ATION 09/11/2025 [facility] Source Comments (unrecognize d section and content) In the event this informatio n is protected by the Federal Confidentiality of Alcohol and Drug Abuse Patient Records regulations: The Federal rules restrict any use of the information to criminally investigate or prosecute any alcohol or drug abuse patient.[facility] HospitalIn the event this information is protected by the Federal Confidentiality of Alcohol and Drug Abuse Patient Records regulations: The Federal rules restrict any use of the information to criminally investigate or prosecute any alcohol or drug abuse patient.[facility] HospitalIn the event this information is protected by the Federal Confidentiality of Alcohol and Drug Abuse Patient Records regulations: The Federal rules restrict any use of the information to criminally investigate or prosecute any alcohol or drug abuse patient.[facility] HospitalIn the event this information is protected by the Federal Confidentiality of Alcohol and Drug Abuse Patient Records regulations: The Federal rules restrict any use of the information to criminally investigate or prosecute any alcohol or drug abuse patient.[facility] HospitalIn the event this information is protected by the Federal Confidentiality of Alcohol and Drug Abuse Patient Records regulations: The Federal rules restrict any use of the information to criminally investigate or prosecute any alcohol or drug abuse patient.[facility] HospitalIn the event this information is protected by the Federal Confidentiality of Alcohol and Drug Abuse Patient Records regulations: The Federal rules restrict any use of the information to criminally investigate or prosecute any alcohol or drug abuse patient.[facility] HospitalIn the event this information is protected by the Federal Confidentiality of Alcohol and Drug Abuse Patient Records regulations: The Federal rules restrict any use of the information to criminally investigate or prosecute any alcohol or drug abuse patient.[facility] HospitalIn the event this information is protected by the Federal Confidentiality of Alcohol and Drug Abuse Patient Records regulations: The Federal rules restrict any use of the information to criminally investigate or prosecute any alcohol or drug abuse patient.[facility] HospitalIn the event this information is protected by the Federal Confidentiality of Alcohol and Drug Abuse Patient Records regulations: The Federal rules restrict any use of the information to criminally investigate or prosecute any alcohol or drug abuse patient.[facility] HospitalIn the event this information is protected by the Federal Confidentiality of Alcohol and Drug Abuse Patient Records regulations: The Federal rules restrict any use of the information to criminally investigate or prosecute any alcohol or drug abuse patient.[facility] Reason for Visit (unrecogniz ed section and content) ReasonCommentsYearly ExamFloaters Both EyesReasonCommentsNewRight Hip PainReason CommentsRadiology XRReasonCommentsNewPain (Shoulder Pain)ReasonCommentsDry Eye(s) Both EyesVitreous Degeneration (Pvd)ReasonCommentsEstablished Patient Right Hip PainReasonCommentsOrdersReasonCommentsPseudophakia Care Teams (unrecognized sec tion and content) Team MemberRelationshipSpecialtyStart DateEnd Date Loni Covarrubias MD PCP - GeneralFamily Dreqicff49/25/10Team MemberRelationshipSpecialtyStart Date End Date Loni Covarrubias MD PCP - GeneralFamily Ibqnusqf39/25/10Team MemberRelationshipSpecialtyStart Date End Date Loni Covarrubias MD PCP - GeneralFamily Rtnizmho31/25/10 MemberRelationshipSpecialtyStart Date End Date Loni Covarrubias MD PCP - GeneralFamily Qlzuehta21/25/10 MemberRelationshipSpecialtyStart Date End Date Loni Covarrubias MD PCP - Generalmily Ugbdutxo92/25/10Team MemberRelationshipSpecialtyStart Date End Date Loni Covarrubias MD PCP - Generalmi Xvbwtztj33/25/10 MemberRelationshipSpecialtyStart Date End Date Loni Covarrubias MD PCP - Generalmi Frnmhzaz63/25/10Team MemberRelationshipSpecialtyStart Date End Date Loni Covarrubias MD PCP - GeneralFamily Entflrcr70/25/10 MemberRelationshipSpecialtyStart Date End Date Loni Covarrubias MD [address] [place] [address] (Fax) PCP - GeneralFamily Riaylyvj01/26/24 Team Status: Inactive Member Role Status Dates Loni Covarrubias MD Attending Provider Active Sta rt: November 06, 2024 End: November 06, 2024Team MemberRelationshipSpecialtyStart DateEnd Date Loni Covarrubias MD PCP - GeneralFamily Rfxbcmxy68/25/10Te MemberRelationshipSpecialtyStart Date End Date Loni Covarrubias MD PCP - GeneralFamily Eayofxmn67/25/10 Goals (unrecognized section and content) Goals may [...] BE BASED ON THE PRIMARY CLINICAL RECORDS. [employer] provides no warranty or guarantee of the accuracy or completeness of information in this document.
--- OUTSIDE RECORDS SUMMARY | 2025-10-11 07:56 | XMS_ITS | Clinical Summary ---
Author Organization [employer] s tem Address [id number] [place] [address] Care Team Providers Care City Engineer Name Role Phone Dileep Covarrubias MD Primary Care Provider [phone] Allergies No known active allergies Medications MedicationSigDispense [...] Social History Tobacco UseTypesPacks/DayYears UsedDateSmoking Tobacco: Every GpqHwuodfagma805 Smokeless Tobacco: Never Tobacco Cessation:Ready to Q uit: No; Counseling Given: Yes Alcohol UseStandard Drinks/WeekCommentsNever0 (1 standard drink = 0.6 oz pure alcohol)CommentsNoSex and Gender InformationValueDate RecordedSex Assigned at BirthNot on fileLegal UejLylmqq06/10/2021 2:45 PM EDTGender Identity Not on fileSexual OrientationNot on file Last Filed Vital Signs Vital SignReadingTime TakenCommentsBlood Czcoufzc097/63012/22/2021 2:17 PM EST Xclpr221812/22/2021 2:17 PM YZYQygjsufjuxw67.4 ??C (97.5 ??F)05/28/2021 3:45 PM EDTRespiratory Rnpv543112/22/2021 2:17 PM ESTOxygen Kycekclpfo23%05/28/2021 3:45 PM EDTInhaled Oxygen Concentration--Lgafpx80.8 kg (123 lb)12/22/2021 2:17 PM EST Aoduod531.9 cm (5' 1 )12/22/2021 2:17 PM ESTBody Mass Index23.24012/22/2021 2:17 PM EST Plan of Treatment Health MaintenanceDue DateLast DoneCommentsDepression Xbwzzpmos92/06/1959Tobacco Axsdmkzqq70/06/1959Fall Risk Xqkyzexuc07/06/2012RSV ( or age 60+ yrs) (1 - 1-dose 75+ series)2COVID-19 Vaccine (3 - season)2025 04/28/2021, 04/07/2021Influenza Smiqula25/05/2021, 07/20/2020, 07/27/2019, Additional history existsDTaP,Tdap and Td Vaccines (2 - Td or Tdap) Zoster (Shingles) XrvsfkqEkyiijouf73/29/2019, 09/01/2019 Medical Devices Not on file Insurance Care Teams Team MemberRelationshipSpecialtyStart DateEnd Date Dileep Covarrubias MD PCP - GeneralFaarly Medicine03/25/21
--- OUTSIDE RECORDS SUMMARY | 2025-10-11 07:56 | XMS_ITS | Clinical Summary ---
Author Organization [facility] Address [address] [place] [id number] Care Team Providers Care Mechanical Insulator Name Role Phone Dileep Covarrubias MD Primary Care Provider [phone] Allergies Active AllergyReactionsCriticalityNoted SvumUxspwzzqOyiwnix-Qex-Yej Reductase BuikcuwjhhRfkdwcd75/24/2023 Medications MedicationSigDispense QuantityRefillsLast FilledStart DateEnd DateStatus pantoprazole [...] E mixed 400 unit cap 11/07/1989Active omega 2-tla-hjh-fish oil (FISH OIL) 100-160-1,000 mg cap Fish OilActive denosumab (PROLIA SUBCUTANEOUS) 07/08/2020Active gabapentin (NEURONTIN) 100 mg capsule Take 1 capsule by mouth once daily as needed (for sciatica) for up to 180 days. 11/12/2020ctive albuterol HFA (PROAIR HFA) 90 mcg/actuation inhaler 2 Puffs every 6 hours as needed. Take as cqecukkt02/06/2021ctive cyanocobalamin/folic acid (VITAMIN X50-YDGDM ACID) 1,000-[address] by sublingual [...] Social History Tobacco UseTypesPacks/DayYears UsedDateSmoking Tobacco: Every EgyUlmlkdjawm612 Smokeless Tobacco: Never Tobacco Cessation:Ready to Q uit: No; Counseling Given: Yes Alcohol UseStandard Drinks/WeekCommentsNever0 (1 standard drink = 0.6 oz pure alcohol)AUDIT-CAnswerDate RecordedQ1: How often do you have a drink containing alcohol?Never09/09/2020Average Number of DrinksNot on file09/09/2020Frequency of Binge DrinkingNot on file09/09/2020PHQ-2AnswerDate RecordedPHQ-2 score0 4Area Deprivation IndexAnswerDate RecordedNational Score (1-100), lower number is lower synq711101/31/2024State Score (1-10), lower number is lower risk4 4Data from: https://www.neighborhoodatlas.medicine.[facility].edu/. Last address used for dowpgvpeagr[address] [facility]4CommentsNoSex and Gender InformationValueDate RecordedSex Assigned at StdbkQsnuqe03/02/2020 10:57 PM ESTLegal FiaIbtwgz08/02/2012 8:32 AM ESTGender FsckhhgnPqnrzs33/02/2020 10:57 PM ESTSexual HsilofjjhiaKzpywcaq29/02/2020 10:57 PM EST Last Filed Vital Signs Vital SignReadingTime TakenCommentsBlood Eoeixsek547/60012/03/2020 9:50 AM EST Xnesj803612/03/2020 9:50 AM TJYAwnzzfwasyo41.2 ??C (97.1 ??F)12/03/2020 9:38 AM ESTRespiratory Usmx226412/03/2020 9:50 AM ESTOxygen Logbuejasz25%12/03/2020 9:50 AM ESTInhaled Oxygen Concentration--Gojfoq68 kg (130 lb)11/12/2020 11:08 AM EST patient lflxzmrhVtwrnx650.9 cm (5' 1 )11/12/2020 11:08 AM ESTpatient reported Body Mass Index24.56011/12/2020 11:08 AM EST Plan of Treatment Health MaintenanceDue DateLast DoneCommentsAnnual PCP Team Chronic Disease Visit 1965Anxiety Uogvkfkqq69/06/1965Depression Dizkmjknl59/06/1965Hepatitis C Xtqxbovfv33/06/1965Bone Density Hsduxaqra20/06/2012RSV Vaccine (1 - 1-dose 75+ series)2Diabetes Tpgygdxgc09/21/431025/1Advance Directive Tqoypkqzuw20/01/2025Medicare Advantage Annual Wellness Visit5Covid-19 Vaccine ( season)505/12/2021, 04/28/2021, 04/07/2021 Influenza Vaccine (#1)/11/2021, 08/13/2021, 07/20/2020, Additional history existsDTaP,Tdap,Td Vaccine (3 - Td or Tdap), 07/25/2016Pneumococcal Vaccine: 50+Nvcfffuri84/29/2017, 10/09/2014Shingrix HaaxfvzTlfjdvvld96/29/2019, 09/01/2019Mammogram GvpctfltlQboyyljcdurm46/28/2022, 08/04/2022, 08/03/2021, Additional history exists Medical Devices ImplantedTypeAreaManufacturerDevice IdentifierShelf Expiration DateModel / Serial / LotLens Iol 0d +15 Derik Uv Abs - [id number] Implanted:Qty: 1 on 11/19/2020 by Celena Wade V, MD at [facility] Intraocular LensLeft: [employer] [id number]/30/[id number].150 / [id number] / Description:-0.26Lens Iol 0d +15 Derik Uv Abs - [id number] Implanted:Qty: 1 on 12/03/2020 by Celena Wade V, MD at [facility] Intraocular LensRight: [employer] ZKJHBPXC16/30/[id number].150 / [id number] / Description:-0.33 Insurance Care Teams Team MemberRelationshipSpecialtyStart DateEnd Date Dileep Covarrubias MD PCP - GeneralFamily Yfezlkoo63/25/10
== END 2025-10-11 07:53 | disposition home or self-care (01) ==
LOC: PST 07:52
PROVIDERS: PCP Family Medicine; Visit Provider Surgery
DX: Z01.818 Encounter for other preprocedural examination (principal); R19.4 Change in bowel habit

== ENCOUNTER 2025-10-16 08:13 | Day surgery (SDC) | payer MEDICARE, SELFPAY ==
--- NOTE | 2025-10-16 | OP_ITS ---
OPERATION DATE: 10/16/2025 PREOPERATIVE DIAGNOSIS: Change in bowel habits with constipation. POSTOPERATIVE DIAGNOSIS: Redundant tortuous colon. PROCEDURE: Colonoscopy to cecum. SURGEON: Davon Del Rosario M.D. ANESTHESIA: Monitored anesthesia care. ESTIMATED BLOOD LOSS: Zero. INDICATIONS AND CONSENT: Patient is a 80-year-old female, referred for change in bowel habits, initially with loose stools, now with constipation. Indications, risks, benefits, alternatives of proceeding with colonoscopy were explained extensively to the patient, including the risks of bleeding, colon perforation or anesthetic complications. All of her questions were answered. Informed consent was obtained. PROCEDURE: Patient brought to the operating room, placed in the left lateral decubitus position. Monitored anesthesia care was provided. Rectal exam was performed which showed no masses or blood. The scope was inserted into the anal canal. Under direct visualization was advanced. With the aid of abdominal compression, it was advanced to the cecum where cecal markings were clearly identified. Upon withdrawal of the scope, mucosal surfaces were carefully examined. There was noted to be a good prep. There was a markedly redundant colon with spasm. There were no mass lesions or polyps. No inflammatory changes or ulcerations. There were rare sigmoid diverticula without inflammatory changes or scarring. The scope was retroflexed in the anal canal. There was no significant hemorrhoidal disease. The scope was then withdrawn. Patient tolerated procedure well, was sent to recovery room in good condition. She should not require follow up screening colonoscopy. CC: Dileep Covarrubias M.D. . [facility]OSPITALElyse
--- OUTSIDE RECORDS SUMMARY | 2025-10-16 08:19 | XMS_ITS | CCD ---
Author Organization [facility] CliniSymn Care Team Providers Care Director Of Rotc Name Role Phone BOBBY, DR IVEY Admitting [...] Provider Loni Covarrubias MD Primary Care Provider Loni Covarrubias MD Primary Care Provider DARIUSZ RICH Attending Unavailable Loni Covarrubias MD Attending Provider [phone] Loni Covarrubias Attending Unavailable Loni Covarrubias Admitting Unavailable CATALINO LONDON Attending Unavaila CATALINO Rahman Referring Unavaila LONI Stephens Primary Care Unavailable MARCY ESTRELLA Attending Unavailable LONI COVARRUBIAS Primary Care Unavailable Davon ORELLANA Attending Unavailable Loni Covarrubias Referring Unavailable Allergies Allergy ClassificationReported Allergen(s)Allergy TypeDate of OnsetReaction(s) Facility (2 sources)black walnut pollen extract; Translations: [CFMRKML-TEZ-NJA REDUCTASE INHIBITORS]Drug Xdprtvm29-59-6951Uvr [facility] Repository (10 sources)HMG-CoA reductase inhibitorDrug Azqjzdh39-50-8119DojxutqAlgzuhrwn Clinic Medications Current Medications MedicationDrug Class(es)DatesSig (Normalized)Sig (Original)[id number] 200 actuat albuterol 0.09 mg/actuat metered dose inhaler (10 sources)beta2-Adrenergic AgonistStart: 34-55-0005ityz 2 puff(s) by inhalation every six hours as neededalbuterol HFA (PROAIR HFA) 90 mcg/actuation inhaler 2 Puffs every 6 hours as needed. Take as directed 11/12/2020 Active Comment on above:2 Puffs every 6 hours as needed. Take as directedascorbic acid 500 mg oral tablet (13 sources)Vitamin CStart: 90-12-1239vqverety acid, vitamin C, (VITAMIN C) 500 mg tablet 11/07/1999 ActiveAscorbic Acid (Vitamin C) 500 MG capsule Vitamin C Activeaspirin 81 mg delayed release oral tablet (13 sources)Platelet Aggregation Inhibitor, Nonsteroidal Anti-inflammatory Drug Start: 91-43-9628gyfxiqq, enteric coated (ASPIRIN, ENTERIC COATED) 81 mg EC tablet 11/07/1989 Activebenoxinate hydrochloride 4 mg/ml / fluorescein sodium 3 mg/ml ophthalmic solution (3 sources)Diagnostic DyeStart: 03-06-2025 End: 41-50-8795tzgpgzduysz-benoxinate 0.3-0.4 % 1 drop (FLURESS)Start: 03-05-2024 End: 89-20-7040fwewinhawqt-benoxinate 0.25-0.4 % 1 Drop (FLURESS)Start: 02-28-2023 End: 90-36-5492dpvfbjyhtxx-benoxinate 0.25-0.4 % 1 Drop (FLURESS)biotin 2.5 mg oral capsule (13 sources)Start: 83-12-2738Usdcbs 2,500 mcg cap 11/07/1989 ActiveBiotin 2500 MCG chewable tablet Activecalcium carbonate 1250 mg / cholecalciferol 0.01 mg oral tablet (1 source)Vitamin DStart: 12-15-7142Lyrvhkn Carbonate-Vitamin D3 (Calcium 500 With D) 500 mg(1,250mg) -400 unit Tablet Active 1200 MG PO Daily December 23, 2017 12:00amCalcium Citrate / Vitamin D (2 sources)Calcium Citrate-Vitamin D (CALCIUM CITRATE + D PO) Take by mouth ActiveCALCIUM CITRATE-VITAMIN D3 ORAL (10 sources)Start: 71-18-6936RSSXUTT CITRATE-VITAMIN D3 ORAL 11/07/1989 Active Start: 30-97-9102KTCOQZZ CITRATE-VITAMIN D3 ORALcholecalciferol 0.025 mg oral tablet (1 source)Vitamin DStart: 76-68-5272idfp 1 tablet by mouth once daily Cholecalciferol (Vitamin D3) (Vitamin D3) 1,000 unit Tablet Active 1000 UNIT PO Daily December 23, 2017 12:00amchondroitin sulfates 400 mg / glucosamine hydrochloride 500 mg oral tablet (13 sources)Start: 73-97-6202nesm 1 tablet by mouth once dailyGlucosamine- Chondroitin 500-400 mg Tablet Active 1 TAB PO Daily December 23, 2017 12:00am Start: 48-66-1283mdttmoglgon-chondroitin 500-400 mg capsule 08/07/1990 Active take 1 tablet by mouth in the morning, then take 1 tablet by mouth in the evening, then take 1 tablet by mouth at bedtimeglucosamine-chondroitin 500-400 MG tablet Take 1 tablet by mouth in the morning and 1 tablet in theevening and 1 tablet before bedtime. Activedenosumab (12 sources)RANK Ligand InhibitorStart: 00-32-6350nkvxgnwny (PROLIA SUBCUTANEOUS) 07/08/2020 ActiveStart: 69-17-9346zidduexkj (PROLIA SUBCUTANEOUS) Denosumab (PROLIA SC) Inject under the skin Activedocusate sodium 100 mg oral capsule (13 sources)Start: 40-05-4693nwayvsmv sodium (COLACE) 100 mg capsule 11/07/1989 Activeezetimibe 10 mg oral tablet (12 sources)Dietary Cholesterol Absorption InhibitorStart: 22-19-9238mmqy 1 tablet by mouth once dailyezetimibe (ZETIA) 10 mg tablet Take 10 mg by mouth once daily. 07/05/2020 ActiveComment on above:Take 10 mg by mouth once daily. fish oil concentrate ([place]-3) 300 MG capsule (2 sources)fish oil concentrate ([place]-3) 300 MG capsule Take 550 mg by mouth Daily Zcddzd38 actuat fluticasone furoate 0.1 mg/actuat / vilanterol 0.025 mg/actuat dry powder inhaler (13 sources)Corticosteroid, beta2-Adrenergic AgonistStart: 53-28-2449MUVK ELLIPTA 100-25 mcg/dose inhaler 09/07/2020 ActiveStart: 09-43-1998Zrpksfmigoo Furoate-Vilanterol (Breo Ellipta) 100-25 mcg/dose Blister With Device Active 1 INH INHALATION Q24H December 23, 2017 12:00amFluticasone Furoate-Vilanterol (Breo Ellipta) 100-25 MCG/ACT aerosol powder Inhale Activefolic acid 0.4 mg / vitamin b12 1 mg sublingual tablet (4 sources)Vitamin R53lcfwypgrifxgbt/folic acid (VITAMIN F29-LOLVG ACID) 1,000- [address] by sublingual route. Activegabapentin 100 mg oral capsule (11 sources)Anti-epileptic AgentStart: 62-72-0667lfow 1 capsule by mouth once daily as neededgabapentin (NEURONTIN) 100 mg capsule Take 1 capsule by mouth once daily as needed (for sciatica) for up to 180 days. 11/12/2020 ActiveComment on above:Take 1 capsule by mouth once daily as needed (for sciatica) for up to 180 days.gemfibrozil 600 mg oral tablet (13 sources)Peroxisome Proliferator Receptor alpha AgonistStart: 69-80-4308pilk 1 tablet by mouth twice dailyGemfibrozil 600 mg Tablet Active 600 MG PO Twice daily December 23, 2017 12:00amStart: 33-34-4413xzel 1 tablet by mouth once dailygemfibrozil (LOPID) 600 mg ORAL tablet Take one(1) tablet two(2) times daily. 0 09/03/2010 ActiveComment on above:Take one(1) tablet two(2) times daily.ibandronic acid 150 mg oral tablet (1 source)BisphosphonateStart: 62-75-3623htdm 1 tablet by mouth every month Ibandronate 150 mg Tablet Active 150 MG PO every month December 23, 2017 12:00ammecobalamin 1 mg chewable tablet (10 sources)Start: 57-36-8626pppwkivnqfk, vitamin B12, 1,000 mcg chew 11/07/2014 ActiveMultiple Vitamin (multivitamin) tablet (2 sources)take 1 tablet by mouth once dailyMultiple Vitamin (multivitamin) tablet Take 1 tablet by mouth Daily Activemultivit,iron,minerals/lutein (CENTRUM SILVER ULTRA WOMEN'S ORAL) (10 sources)Start: 73-73-1044ivzgywzd,iron,minerals/lutein (CENTRUM SILVER ULTRA WOMEN'S ORAL) 11/07/1999 ActiveStart: 87-41-5156cgbedzwv,iron,minerals/lutein (CENTRUM SILVER ULTRA WOMEN'S ORAL)Multivitamin Tablet (1 source)Start: 58-78-7587hzvl 1 tablet by mouth once dailyMultivitamin Tablet Active 1 TAB PO Daily December 23, 2017 12:00amOmega 2-Uzc-Uzm-Fish Oil (Fish Oil) 1,000 mg (120 mg-180 mg) Capsule (1 source)Start: 45-49-7587Ioute 4-Mnw-Rfd-Fish Oil (Fish Oil) 1,000 mg (120 mg- 180 mg) Capsule Active 500 MG PO Daily December 23, 2017 12:00amomega 5-emo-osf-fish oil (FISH OIL) 100-160-1,000 mg cap (10 sources)omega 6-txc-fqg-fish oil (FISH OIL) 100-160-1,000 mg cap Fish Oil Activeomega 0-ngw-wun-fish oil (FISH OIL) 100-160-1,000 mg cap Fish Oil 0 Active Comment on above:Fish Oilpantoprazole 40 mg delayed release oral tablet (13 sources)Proton Pump InhibitorStart: 41-89-4058hame 1 tablet by mouth once dailypantoprazole (PROTONIX) 40 mg ORAL tablet Take one(1) tablet daily. 0 09/03/2010 ActiveComment on above:Take one(1) tablet daily.phenylephrine hydrochloride 25 mg/ml ophthalmic solution (3 sources)alpha-1 Adrenergic AgonistStart: 03-06-2025 End: 78-02-5918EORVIEayymiwi 2.5 % 1 drop (AK-DILATE, HENNA-SYNEPHRINE)Start: 03-05-2024 End: 87-06-1021ODUQHGgvlvuls 2.5 % 1 Drop (AK-DILATE, HENNA-SYNEPHRINE)Start: 02-28-2023 End: 85-01-1535IVKVYCqzigvnc 2.5 % 1 Drop (AK-DILATE, HENNA-SYNEPHRINE) polyethylene glycol 3350 23908 mg powder for oral solution (2 sources)Osmotic Laxativepolyethylene glycol, PEG, 3350 (Miralax) 17 g packet Take by mouth Activesimethicone 125 mg oral capsule (12 sources)Start: 04-78-7854Etqhlcedkqw 125 mg cap 11/07/2014 Activesimethicone (Mylicon) 125 MG chewable tablet 1 (one) time each day at the same time Active tropicamide 10 mg/ml ophthalmic solution (3 sources)AnticholinergicStart: 03-06-2025 End: 50-96-3904jmwlswrufrt 1 % 1 drop (MYDRIACYL)Start: 03-05-2024 End: 03-53-8960hquiiudimih 1 % 1 Drop (MYDRIACYL)Start: 02-28-2023 End: 38-44-6337osqqsujpmzx 1 % 1 Drop (MYDRIACYL)vitamin b12 1 mg oral tablet (3 sources)Vitamin M99Boxnm: 54-29-6334uzay 1 tablet by mouth once daily in the eveningCyanocobalamin (Vitamin B-12) (Vitamin B-12) 1,000 mcg Tablet Active 1000 MCG PO Every evening December 23, 2017 12:00amvitamin e 90 mg oral capsule (13 sources)Start: 41-17-8436xova 1 capsule by mouth once daily at bedtime Vitamin E 200 unit Capsule Active 200 UNIT PO Daily at bedtime December 23, 2017 12:00amStart: 76-66-4001sxtdxgw E mixed 400 unit cap 11/07/1989 Activetake 1 capsule by mouth once dailyvitamin E 180 MG (400 UNIT) capsule Take 180 mg by mouth Daily Active Completed/Discontinued Medications MedicationDrug Class(es)DatesSig (Normalized)Sig (Original)ketorolac tromethamine 5 mg/ml ophthalmic solution (2 sources)Nonsteroidal Anti-inflammatory Drug, Cyclooxygenase InhibitorStart: 11-19-2020 End: 33-93-2248jtUSNuxsb (ACULAR) 0.5 % ophthalmic solution USE DIRECTED BY PHYSICIAN, IN OPERATIVE EYE, BEGINNING ONE DAY AFTER SURGERY 1 Bottle 0 12/03/2020 02/28/2023 Discontinued (Course of therapy completed)Comment on above:USE DIRECTED BY PHYSICIAN, IN OPERATIVE EYE, BEGINNING ONE DAY AFTER SURGERYmeloxicam 7.5 mg oral tablet (3 sources)Nonsteroidal Anti-inflammatory DrugStart: 02-16-2024 End: 59-23-5844tgsr 1 tablet by mouth once dailymeloxicam (MOBIC) 7.5 mg tablet Take 1 tablet by mouth once daily. 30 tablet 02/16/2024 03/17/2024 Comment on above:Take 1 tablet by mouth once daily.naproxen 250 mg oral tablet (5 sources)Nonsteroidal Anti-inflammatory DrugStart: 01-31-2024 End: 79-82-8407brwj 1 tablet by mouth twice daily as [...] mg/ml ophthalmic suspension (2 sources)CorticosteroidStart: 11-19-2020 End: 04-93-5473waiuvdnqIKPC acetate (PRED FORTE, ECONOPRED PLUS) 1 % ophthalmic suspension USE DIRECTED BY PHYSICIAN, IN OPERATIVE EYE, BEGINNING ONE DAY AFTER SURGERY 1 Bottle 0 12/03/2020 02/28/2023 Discontinued (Course of therapy completed)Comment on above:USE DIRECTED BY PHYSICIAN, IN OPERATIVE EYE, BEGINNING ONE DAY AFTER SURGERY Problems Active Problems Problem ClassificationProblemDateDocumented DateEpisodic/ChronicCataract (4 sources)Bilateral pseudophakia; Translations: [Presence of intraocular lens] Onset: 95-64-9430UmrdbcwRradftj obstructive pulmonary disease and bronchiectasis (13 sources)Chronic obstructive pulmonary disease, unspecified; Translations: [Chronic obstructive lung disease]Onset: 394995-28-8676NsjebuzJihlkjrnd of lipid metabolism (14 sources)Pure hypercholesterolemia, unspecified; Translations: [Hyperlipidemia, unspecified]Onset: 783079-39-2678AxdgzinJhbwvxohue disorders (12 sources)Gastroesophageal reflux disease; Translations: [Gastro-esophageal reflux disease without esophagitis]Onset: hronic Inflammation; infection of eye (except that caused by tuberculosis or sexually transmitteddisease) (5 sources)Keratoconjunctivitis sicca; Translations: [Keratoconjunctivitis sicca, not specified as Sjogren's, bilateral]Onset: 46-14-0212CuzipruCdcts disorders and dislocations; trauma-related (2 sources)Acetabular labrum tear; Translations: [Other articular cartilage disorders, unspecified hip]18-24-1651KnkvmgpPmntyyuqupr deficiencies (1 source)Vitamin D deficiency, unspecified; Translations: [VITAMIN D DEFICIENCY UNSPECIFIED]Onset: 37-75-8142VdkxsorArsjtaqgrksblw (1 source)Osteoarthritis of right hip joint; Translations: [Unilateral primary osteoarthritis, right hip]61-10-8751LcosdlwGcfwhhjyeltc (4 sources)Age-related osteoporosis without current pathological fracture; Translations: [AGE-REL OSTEOPOR W/OCURR PATH FX]Onset: 16-14-7092XcazzikFfmlx congenital anomalies (2 sources)Acral keratosis; Translations: [Other specified congenital malformations of skin]22-05-3085CejymecYpjgk connective tissue disease (2 sources)Disorder of rotator cuff; Translations: [Unspecified disorder of synovium and tendon, right shoulder]53-62-4671QmxholfeGtayx connective tissue disease (1 source)Impingement syndrome of right shoulder region; Translations: [Impingement syndrome of right shoulder]43-53-9824GemjkhypNhpha connective tissue disease (4 sources)Pain in right foot; Translations: [Pain in right foot]10-02-2024 EpisodicOther eye disorders (3 sources)Bilateral vitreous degeneration of eyes; Translations: [Vitreous degeneration, bilateral]ChronicOther eye disorders (1 source)Bilateral vitreous floaters; Translations: [Other vitreous opacities, bilateral]ChronicOther eye disorders (1 source)Vitreous degeneration, bilateral; Translations: [Vitreous degeneration, bilateral]Onset: 64-67-9171RgzhjgiObwse lower respiratory disease (1 source)Other nonspecific abnormal finding of lung field; Translations: [OTH NONSPECIFIC ABN FIND LNG FIELD]Onset: 00-27-8899TawhsllzUsmwl non-traumatic joint disorders (1 source)Pain in right hip joint; Translations: [Pain in right hip]01-31-2024 EpisodicOther non-traumatic joint disorders (1 source)Pain in right shoulder; Translations: [Pain in joint, shoulder region] 54-12-9030CfdjlfhmDapan skin disorders (2 sources)Callosity; Translations: [Corns and callosities]53-66-5624Kstjgpwt Residual codes; unclassified (10 sources)Tobacco user; Translations: [Tobacco use]96-03-0491TkmjkfdxXsndrrtn codes; unclassified (1 source)Pain; Translations: [Pain, unspecified]55-56-9383OvtxtbqxOvnrthw detachments; defects; vascular occlusion; and retinopathy (8 sources)Retinal pigment epithelial abnormality; Translations: [Other specified retinal disorders]Onset: 20-46-8762DcgqyajLrhjhmnvg-related disorders (4 sources)Nicotine dependence, cigarettes, uncomplicated; Translations: [NICOTINE DEPEND CIGARETTES UNCOMP]Onset: 94-00-5424BqukbmwOolyqkbbsyav (3 sources)COUGH, UNSPECIFIED; Translations: [COUGH, UNSPECIFIED]Onset: 88-01-6962Ectruwhobleq (1 source)CONTACT W/AND (SUSP) EXPOS COVID-19; Translations: [CONTACT W/AND (SUSP) EXPOS COVID-19]Onset: 05-16-2022 Past or Other Problems Problem ClassificationProblemDateDocumented DateEpisodic/ChronicCalculus of urinary tract (4 sources)Calculus of kidney; Translations: [CALCULUS OF KIDNEY]Onset: 44-89-8922BzaefmozDvobsowesn and other anemia (1 source)Anemia, unspecified; Translations: [ANEMIA UNSPECIFIED]Onset: 92-66-1551DsxbofjaUtqjpaxv mellitus without complication (1 source)Other abnormal glucose; Translations: [OTHER ABNORMAL GLUCOSE]Onset: 99-79-2107CdaksbshVwkvfcr and fatigue (4 sources)Other fatigue; Translations: [OTHER FATIGUE]Onset: 11-33-2359Fzofxxbp Other lower respiratory disease (1 source)Other forms of dyspnea; Translations: [OTHER FORMS OF DYSPNEA]Onset: 85-51-5832PpopmngcNnuyb screening for suspected conditions (not mental disorders or infectious disease) (4 sources)Encounter for screening mammogram for malignant neoplasm of breast; Translations: [ENC SCR MAMMO MALIG NEOPLASM BREAST]Onset: 62-28-3759Npohikoj Pulmonary heart disease (1 source)Personal history of pulmonary embolism; Translations: [PERSONAL HISTORY PULMONARY EMBOLISM]Onset: 59-57-8824BuqmdhlxBihzebhr codes; unclassified (1 source)Family history of malignant neoplasm of trachea, bronchus and lung; Translations: [FAM HX MALIG NEOPLSM TRACH BRON LNG]Onset: 54-01-0472Lwdpbosm Unclassified (1 source)COUGH, UNSPECIFIED; Translations: [COUGH, UNSPECIFIED]Onset: 05-12-2022 Results Test NameValueInterpretationReference RangeFacilityOCT MACULA CIRRUS OU (BOTH EYES)on 44-49-9120Cptvrvzja ClinicRadiology Study observation (narrative) [facility] HospitalAerobic Cultureon 51-97-6512Wunwqwz CultureORGANISM: Moraxella catarrhalis (O:MORCAT) Beta Lactamase Positive Quantity of Growth Heavy Growth Gram Stain Result 1+ Gram Positive Cocci in Pairs PERFORMED BY: [address] [id number] PATHOLOGIST HEAD SWAMPER GWEN ABDUL M.D.NormalThe [facility] Physician GroupComment on above: Performed By: #### GS, AERC #### [address] [address] USAGram Stainon 79-23-8726Iinbldztlfc observation Gram stain Nom (Unsp spec)Gram Stain Result 1+ Gram Positive Cocci in Pairs 11/06/2024 1624 PAB PERFORMED BY: [address] [address] PATHOLOGIST HEAD SWAMPER GWEN ABDUL M.D.NormalThe [facility] Physician GroupComment on above: Performed By: #### GS, AERC #### [facility] [address] StreetGram stain microscopyOrdered By: Loni Covarrubias on 11-06-2024 Microscopic observation Gram stain Nom (Unsp spec)Gram stain microscopyMercy Health West HospitalCNPNon 47-77-7699KHRGFlubqzsnb (INTMAL) NEVAEH THOMAS ([id number]) 1945 F Date Time Provider Department 04/23/24 MARCY ESTRELLA INTANTOINETTE During your visit today, we recorded the following information about you: Victoria Watson 04/23/2024 11:01 AM Signed April from [facility] is calling Marcy Estrella DO today with concern regarding evaluation that was faxed on February 20. Requested provider's signature to be faxed with it. Please advise. Patient has been identified by name and birthdate. Duration of symptoms: N/A Person calling: April Call patient at: [phone] ext [phone] Was an appointment scheduled: No Closing statement: Results or non-symptom based questions: Thank you for calling [facility], your call will be returned within the next business day. Thank you, Victoria Watson Allergies As of Date: 04/23/2024 Noted Allergy Reaction DBPJZTM-ECV-DMD REDUCTASE INHIBIT*02/28/2023 16 - Unknown Date Reviewed: 03/27/2024 Reviewed by: Marcy Estrella DO - Fully Assessed Reason for Visit: Orders [681] Prescriptions as of 12/10/2024 - cyanocobalamin/folic acid (VITAMIN M41-ZUWJY ACID) 1,000-[address] by sublingual [...] E mixed 400 unit cap - omega 1-vzw-vvz-fish oil (FISH OIL) 100-160-1,000 mg cap Fish Oil - pantoprazole (PROTONIX) 40 mg ORAL tablet Take one(1) tablet daily. - gemfibrozil (LOPID) 600 mg ORAL tablet Take one(1) tablet two(2) times daily. Problem List As Of Date 04/23/2024 Noted Resolved COPD (chronic obstructive pulmonary disease) (H* GERD (gastroesophageal reflux disease) [K21.9] HLD (hyperlipidemia) [E78.5] Tobacco abuse [Z72.0] Encounter Status:Closed by VICTORIA WATSON on 12/10/24[facility] 55-70-4415VUUTPzspxc Visit (LOORRM) NEVAEH THOMAS ([id number]) 1945 F Date Time Provider Department 03/27/24 [...] As of Date: 03/27/2024 Noted Allergy Reaction GAEKUQC-DXQ-GRP REDUCTASE INHIBIT*02/28/2023 16 - Unknown Date Reviewed: 03/27/2024 Reviewed by: Marcy Estrella DO - Fully Assessed Reason for Visit: Established Patient [175] Right Hip Pain [1554] Primary Visit Diagnosis: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] Other Visit Diagnosis: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 - gemfibrozil (LOPID) 600 mg ORAL tablet Take one(1) tablet two(2) times daily. Problem List As Of Date 03/27/2024 Noted Resolved COPD (chronic obstructive pulmonary disease) (H* GERD (gastroesophageal reflux disease) [K21.9] HLD (hyperlipidemia) [E78.5] Tobacco abuse [Z72.0] Encounter Status:Closed by MARCY ESTRELLA on 03/27/24NoMer[facility] Medical CenterXR Shoulder - right 3 Viewson 27-86-2188WXWCQPHPAN: MINIMAL DEGENERATIVE CHANGES RIGHT SHOULDER Gold Letterer: TAYA Transcribe Date/Time: Feb 16 2024 2:48P Dictated by : MEHNAZ LOBATO MD This examination was interpreted and the report reviewed and electronically signed by: MEHNAZ LOBATO MD on Feb 16 2024 2:49PM [facility] DIVISION OF RADIOLOGY* * *Final Report* [...] No other significant abnormality. DIVISION OF RADIOLOGYProvider, [facility] [place] - 02/16/2024 * * *Final Report* * [...] IMPRESSION IMPRESSION: MINIMAL DEGENERATIVE CHANGES RIGHT SHOULDER Gold Letterer: MIGNONtinyclues Transcribe Date/Time: Feb 16 2024 2:48P Dictated by : MEHNAZ LOBATO MD This examination was interpreted and the report reviewed and electronically signed by: MEHNAZ LOBATO MD on Feb 16 2024 2:49PM [facility] HospitalRadiology Study observation (narrative)[facility] HospitalXR Shoulder - right 3 ViewsOrdered By: [facility] Provider on 02-54-8536Qgakcfjxw ClinicXR Pelvis and Hip - right AP and Lateral frogon 19-78-0235IVYMNUQFIP: Right hip grossly unremarkable. Gold Letterer: AkvoB Transcribe Date/Time: Jan 31 2024 2:13P Dictated by : PORFIRIO MURPHY MD This examination was interpreted and the report reviewed and electronically signed by: PORFIRIO MURPHY MD on Jan 31 2024 2:14PM [facility] DIVISION OF RADIOLOGY* * *Final Report* [...] in the lower abdomen. DIVISION OF RADIOLOGYProvider, [facility] [place] - 01/31/2024 * * *Final Report* * [...] abdomen. IMPRESSION IMPRESSION: Right hip grossly unremarkable. Gold Letterer: [facility] Transcribe Date/Time: Jan 31 2024 2:13P Dictated by : PORFIRIO MURPHY MD This examination was interpreted and the report reviewed and electronically signed by: PORFIRIO MURPHY MD on Jan 31 2024 2:14PM [facility] HospitalRadiology Study observation (narrative)[facility] HospitalXR Pelvis and Hip - right AP and Lateral frogOrdered By: [facility] Provider on 01-31-[address] [facility] HospitalCALCIUMon 57-70-6802Rjdidxe [Mass/Vol]9.4 mg/dLNormal8.5-10.1The [facility] HospitalComment on above:Performed By: #### LAZARUS CRUZ #### [facility] [address] [address] [address] Lori MarionINEon 92-38-3802Vtuvajikyh [Mass/Vol]0.64 mg/dLNormal 0.55-1.02The [facility] HospitalComment on above:Performed By: #### LAZARUS CRUZ #### [facility] [address] [place], [place] [address] Dr. Lori ClaireGFR-AF PORTUGUESE>60Normal>=60The [facility] HospitalComment on above:Performed By: #### LAZARUS CRUZ #### [facility] [address] [place], [place] [address] Dr. Lori ClaireGFR-NON AF PORTUGUESE>60Normal>=60The [facility] HospitalComment on above:Performed By: #### LAZARUS CRUZ #### [facility] [address] [place], [place] [address] Dr. Lori BautistaCT LUNG CANCER SCREENINGon 44-84-9073XG LUNG CANCER SCREENING EXAMINATION: CT LUNG CANCER [...] authenticated by: VERONICA DUNCAN Date: 2022-09-10 14:57NormalThe [facility] HospitalINSULINon 76-92-9740Xfjgaoc7.3 uIU/mLNormal2.6-24.9The [facility] HospitalComment on above:Performed By: #### INSULIN #### [facility] [address] [place] [address] Dr. Lori Nugent AUTO DIFFon 91-79-4360ETIP #0.1 103/ulNormal0.0-0.1The [facility] HospitalComment on above:Performed By: #### CBC #### [facility] [address] [place] [address] Dr. Lori BautistaBasophils/100 WBC (Bld)0.6 %Normal0.2-2.0The [facility] Comment on above:Performed By: #### CBC #### [facility] [address] [place] [address] Dr. Lori Holliday #0.1 103/ulNormal0.0-0.7The [facility] HospitalComment on above: Performed By: #### CBC #### [facility] [address] [place] [address] Dr. Lori Claireosinophils/100 WBC (Bld)0.6 %Critically low0.9-7.0The [facility] HospitalComment on above:Performed By: #### CBC #### [facility] [address] [place] [address] Dr. Lori Clairerythrocyte distribution width (RBC) [Ratio]13.2 %Skvrcq58.0-15.0 The [facility] HospitalComment on above:Performed By: #### CBC #### [facility] [address] [place] [address] Dr. Lori BautistaHematocrit (Bld) [Volume fraction]41.3 %Vebjjr44.0-48.0The [facility] HospitalComment on above:Performed By: #### CBC #### [facility] [address] [place] [address] Dr. Lori BautistaHemoglobin (Bld) [Mass/Vol]13.5 g/jJTkrwwt60.0-16.0The [facility] on above:Performed By: #### CBC #### [facility] [address] [place] [address] Dr. Lori Trinidad #0.02 10e3/ulNormal0.00-0.03The [facility] HospitalComment on above:Performed By: #### CBC #### [facility] [address] [place] [address] Dr. Lori Trinidad %0.3 %Normal0.0-0.5The [facility] HospitalCompaul [facility] on above: Performed By: #### CBC #### [facility] [address] [place] [address] Dr. Lori Whitlock #2.0 103/ulNormal1.2-3.8The [facility] HospitalComment on above:Performed By: #### CBC #### [facility] [address] [place] [address] Dr. Lori Garciahocytes/100 WBC (Bld)25.6 %Dselgk40.5-60.0The [facility] HospitalCompaul [facility] on above:Performed By: #### CBC #### [facility] [address] [place] [address] Dr. Lori CorriganUAL DIFF REQNONormalThe [facility] HospitalComment on above: Performed By: #### CBC #### [facility] [address] [place] [address] Dr. Lori Henriquez (RBC) [Entitic mass]31.1 omNodxdk92.7-34.0The [facility] HospitalComment on above:Performed By: #### CBC #### [facility] [address] [place] [address] Dr. Lori Henriquez (RBC) [Mass/Vol]32.7 g/vDHcnthc56.9-35.2The [facility] HospitalComment on above:Performed By: #### CBC #### [facility] [address] [place] [address] Dr. Lori HenriquezV (RBC) [Entitic vol]95.2 sZKfkaup94.0-99.0The [facility] on above:Performed By: #### CBC #### [facility] [address] [place] [address] Dr. Lori Pardo #0.7 103/ulNormal0.3-0.8The [facility] HospitalComment on above:Performed By: #### CBC #### [facility] [address] [place] [address] Dr. Lori Arthurocytes/100 WBC (Bld)8.4 %Normal1.7-12.0The [facility] Comment on above:Performed By: #### CBC #### [facility] [address] [place] [address] Dr. Lori KeatingUT #5.0 103/ulNormal1.4-6.5The [facility] Hospitalment on above:Performed By: #### CBC #### [facility] [address] [place] [address] Dr. Lori Keatingutrophils/100 WBC (Bld)64.5 %Xsdqie51.0-75.0The [facility] Hospitalment on above:Performed By: #### CBC #### [facility] [address] [place] [address] Dr. Lori Beaverlet mean volume (Bld) [Entitic vol]9.9 fLNormal9.5-13.5The [facility] Hospitalment on above:Performed By: #### CBC #### [facility] [address] [place] [address] Dr. Lori BautistaPLT310 103/wgUysqlp451-028Lhb [facility] on above: Performed By: #### CBC #### [facility] [address] [place] [address] Dr. Lori BautistaRBC4.34 106/ulNormal4.20-5.40The [facility] Hospitalment on above:Performed By: #### CBC #### [facility] [address] [address] [address] Lori BautistaWBC7.8 103/ulNormal4.0-11.0The [facility] on above: Performed By: #### CBC #### [facility] [address] [address] [address] Lori BautistaFRYANI THYROXINE INDEX T7on 10-83-5892DGM6.07Elfnqu1.30-4.50The [facility] on above:Performed By: #### LIPID, TSH, T7, CMP ####[facility] [address] [address]DrClarence BautistaT3U31.0 %Zimvwb84.0-39.0The [facility] on above: Performed By: #### LIPID, TSH, T7, CMP ####[facility] [address] [address]DrClarence BautistaT4 [Mass/Vol]7.30 ug/dLNormal 4.80-13.90The [facility] on above:Performed By: #### LIPID, TSH, T7, CMP ####[facility] [address] [address]Dr. Lori BautistaGLYCOHEMOGLOBIN A1Con 23-79-9545WDP RECOMMENDATIONSEE BELOW NormalThe [facility] on above:Result Comment: ADA RECOMMENDED LIMIT 4.0 - 6.0 ADA THERAPEUTIC TARGET < 7.0 ACTION SUGGESTED > 7.0Performed By: #### A1C #### [facility] [address] [address] [address] Lori BautistaGlucose [Mass/Vol]117 mg/dLNormalThe [facility] on above:Performed By: #### A1C #### [facility] [address] [address] [address] Lori BautistaHbA1c (Bld) [Mass fraction]5.7 %Normal4.5-6.2The [facility] on above:Performed By: #### A1C #### [facility] [address] [place], [place] [address] Dr. Lori Wilburn 12-59-5283Ojlb [Mass/Vol]105.0 ug/gLIcbiak67.0-170.0The [facility] HospitalComment on above:Performed By: #### IRON, VITAD ####[facility] [address] [id number]. Lori ChangLIPID PROFILEon 77-71-2438OIXS-HDL RATIO NORMSEE [facility] Comment on above:Result Comment: 3.3 - 4.4 LOW RISK 4.4 - 7.1 AVERAGE RISK 7.1 - 11.0 MODERATE RISK >11.0 HIGH RISKPerformed By: #### LIPID, TSH, T7, CMP ####[facility] [address] [address]Dr. Lori ChangCholesterol [Mass/Vol]186 mg/dLNormal<=200The [facility] Comment on above:Performed By: #### LIPID, TSH, T7, CMP ####[facility] [address] [id number]. Lori ChangCholesterol in HDL [Mass/Vol]55 mg/qAFtjadl51-37Nzq [facility] HospitalComment on above: Performed By: #### LIPID, TSH, T7, CMP ####[facility] [address] [id number]. Yilan ChangCholesterol in LDL [Mass/Vol] 116.4 mg/dLNoKing's Daughters Medical Center OhioComment on above:Performed By: #### LIPID, TSH, T7, CMP ####[facility] [address] [id number]. Lori ChangCholesterol.total/Cholesterol in HDL [Mass ratio]3.4 {ratio}NormalKettering Health – Soin Medical CenterComment on above:Performed By: #### LIPID, TSH, T7, CMP ####[facility] [address] [address]Dr. Lori ChangHDL NORMAL> or = 60 mg/dl - LOW CARDIOVASCULAR RISK <40 mg/dl - HIGH CARDIOVASCULAR RISKSheltering Arms Hospital on above: Performed By: #### LIPID, TSH, T7, CMP ####[facility] [address] [place], [place] [address]Dr. Yicira ChangLDL CALC NORMALSEE BELOWParkview HealthComment on above:Result Comment: <100 mg/dl OPTIMAL 100 - 129 mg/dl NEAR OR ABOVE OPTIMAL 130 - 159 mg/dl BORDERLINE HIGH 160 - 189 mg/dl HIGH >190 mg/dl VERY HIGHPerformed By: #### LIPID, TSH, T7, CMP ####[facility] [address] [place], [place] [address]Dr. Lori BautistaTriglyceride [Mass/Vol]73 mg/dLNormal<=150The [facility] on above:Performed By: #### LIPID, TSH, T7, CMP ####[facility] V[address] [place], [place] [address]Dr. Lori BautistaVLDL CALC14.6 mg/dLNoKing's Daughters Medical Center OhioCompaul [facility] on above:Performed By: #### LIPID, TSH, T7, CMP ####[facility] X[address] [place], [place] [address]Dr. Lori BautistaPROF 14(COMP METB)on 52-90-5092Hmlfacl [Mass/Vol]3.9 g/dLNormal3.4-5.0The [facility] on above:Performed By: #### LIPID, TSH, T7, CMP ####[facility] [address] [place], [place] [address]Dr. Lori Bautista Albumin/Globulin [Mass ratio]1.2 {ratio}NormalThe [facility] on above:Performed By: #### LIPID, TSH, T7, CMP ####[facility] [address]von[address] [place], [place] [address]Dr. Lori BautistaALP [Catalytic activity/Vol]68 U/GXidymq44-525Nqv [facility] on above:Performed By: #### LIPID, TSH, T7, CMP ####[facility] [address] [place], [place] [address]Dr. Yilan ChangALT [Catalytic activity/Vol]20 U/L Zbnfdb11-22Xtp [facility] HospitalComment on above:Performed By: #### LIPID, TSH, T7, CMP ####[facility] [address] [address]Dr. Yilan ChangAnion gap [Moles/Vol]8.2 mmol/LNormalThe [facility] Comment on above:Performed By: #### LIPID, TSH, T7, CMP ####[facility] [address] [address]Dr. Yilan ChangAST [Catalytic activity/Vol]22 U/CMwkhdp78-13Yym [facility] HospitalComment on above:Performed By: #### LIPID, TSH, T7, CMP ####[facility] Us[address] [place], [place] [address]Dr. Yilan ChangBilirubin [Mass/Vol]0.3 mg/dLNormal 0.2-1.0The [facility] HospitalCompaul [facility] on above:Performed By: #### LIPID, TSH, T7, CMP ####[facility] [address] [place], [place] [address]Dr. Yilan ChangCalcium [Mass/Vol]9.2 mg/dLNormal8.5-10.1The [facility] Comment on above:Performed By: #### LIPID, TSH, T7, CMP ####[facility] [address] [address]Dr. Yilan ChangChloride [Moles/Vol]105 mmol/FQzbqpl32-462Vsg [facility] HospitalComment on above:Performed By: #### LIPID, TSH, T7, CMP ####[facility] [address] [place], [place] [address]Dr. Yilan ChangCO2 [Moles/Vol]30.0 mmol/LNormal 21.0-32.0The [facility] HospitalComment on above:Performed By: #### LIPID, TSH, T7, CMP ####[facility] [address] [place], [place] [address]Dr. Yilan ChangCreatinine [Mass/Vol]0.67 mg/dLNormal0.55-1.02The [facility] Hospitalment on above:Performed By: #### LIPID, TSH, T7, CMP ####[facility] [address] [place], [place] [address]Dr. Yilan ChangEGFR- AF PORTUGUESE>60Normal>=60The [facility] Hospitalment on above:Performed By: #### LIPID, TSH, T7, CMP ####[facility] [address] [place], [place] [address]Dr. Yilan ChangEGFR-NON AF PORTUGUESE>60Normal>=60The [facility] HospitalComment on above:Performed By: #### LIPID, TSH, T7, CMP ####[facility] [address] [place], [place] [address]Dr. Yilan ChangGlobulin (S) [Mass/Vol]3.3 g/dLNormalThHolzer Health SystemCompaul [facility] on above:Performed By: #### LIPID, TSH, T7, CMP ####[facility] Svsrxgsb[address] [place], [place] [address]Dr. Yilan ChangGlucose [Mass/Vol]84 mg/eHHohpsa97-617Rzs [facility] on above:Performed By: #### LIPID, TSH, T7, CMP ####[facility] [address]ds[address] [place], [place] [address]Dr. Yilan ChangPotassium [Moles/Vol]4.2 mmol/LNormal 3.5-5.1The [facility] on above:Performed By: #### LIPID, TSH, T7, CMP ####[facility] [address] [place], [place] [address]Dr. Yilan ChangProtein [Mass/Vol]7.2 g/dLNormal6.4-8.2The [facility] on above:Performed By: #### LIPID, TSH, T7, CMP ####[facility] [address]virxm[address] [place], [place] [address]Dr. Yilan ChangSodium [Moles/Vol]139 mmol/VAbmswy237-535Kgm Protestant Hospitalment on above: Performed By: #### LIPID, TSH, T7, CMP ####[facility] [address] [id number]. Lori BautistaUrea nitrogen [Mass/Vol]18.0 mg/dLNormal7.0-18.0[facility] Soin Medical CenterComment on above:Performed By: #### LIPID, TSH, T7, CMP ####[facility] [address] [address]Dr. Lori ChangUrea nitrogen/Creatinine [Mass ratio] 26.9 mg/mgNoKing's Daughters Medical Center OhioComment on above:Performed By: #### LIPID, TSH, T7, CMP ####[facility] [address] [address]Dr. Lori BautistaTSHon 94-99-6420PYH5.615 uIU/mLNormal0.358-3.740K[facility] Soin Medical CenterComment on above:Performed By: #### LIPID, TSH, T7, CMP ####[facility] [address] [address]Dr. Lori Bautista VITAMIN D 25 [place]on 69-44-0508KFD D 25-OH73.1 ng/mLNormalKettering Health – Soin Medical Center Comment on above:Performed By: #### IRON, VITAD ####[facility] [address] [place], [place] [address]Dr. Lori MicheleVIT D RANGES SEE BELOWParkview HealthComment on above:Result Comment: <20 ng/mL Vit D deficient 20 - <30 ng/mL Vit D insufficient 30 - 100 ng/mL Vit D sufficient >100 ng/mL Potential ToxicityPerformed By: #### IRON, VITAD ####[facility] [address] [place], [place] [address]Dr. Lori BautistaMG MAMM SCREEN 3D APPLE CADon 67-01-6002WG MAMM SCREEN 3D APPLE CAD Patient: NEVAEH THOMAS Exam Date: 08/04/2022 : 1945 Gender:F Ordering : DR CATALINA CERVANTES Admission #: [id number] Family : Order #: [id number] CLICK HERE TO VIEW EXAM RADIOLOGY REPORT [...] lung cancer at age 84. LOCATION: The [facility] BREAST COMPOSITION: Heterogeneously dense,which may obscure [...] by: Veronica Duncan MD on 08/04/2022 at 13:25NoKing's Daughters Medical Center [place] Covid-19 PCR (CVDTBH)on 50-93-4263WFJU-CoV-2 (COVID-19) RNA PABLO+probe Ql (Unsp spec)Not detectedNormalNOT DETECTEDThe [facility] HospitalComment on above:Result Comment: This test is not yet approved or cleared by the [place] FDA. When there are no FDA-approved or cleared tests available, and other criteria are met, FDA can make tests available under an emergency access mechanism called an Emergency Use Authorization (EUA). The EUA for this test is supported by the [employer] Architect of Health and Human Service's (HHS's) declaration [...] consistent with SARS-CoV-2.Performed By: #### CVDTBH #### [facility] [address] [place] [address] Dr. Lori ChaudhariMATIC COVID-19 ANTIGENon 85-40-7485SKD StatementSEE BELOW NormalThe [facility] on above:Result Comment: This test has not [...] is revoked sooner.Performed By: #### ARLENEAGNikolas #### [facility] [address] [place] [address] Dr. Lori Cole-CoV-2 (COVID-19) RNA PABLO+probe Ql (Unsp spec)NegativeNormal NEGATIVEThe [facility] Hospitalment on above:Performed By: #### CVDAGS #### [facility] [address] [place] [address] Dr. Lori BautistaCALCIUMon 32-24-0787Chejmag [Mass/Vol]9.6 mg/dLNormal8.5-10.1The [facility] HospitalComment on above:Performed By: #### LAZARUS CRUZ ####[facility] [address] [place], [place] [address]Dr. Lori Bautista CREATININEon 54-23-6428Omsecevucn [Mass/Vol]0.68 mg/dLNormal0.55-1.02The [facility] HospitalComment on above:Performed By: #### LAZARUS CRUZ ####[facility] [address] [place], [place] [address]DrClarence Sandoval ChangEGFR- AF AMERICANNormal>=60The [facility] Hospitalment on above:Performed By: #### LAZARUS CRUZ ####[facility] [address] [place], [place] [address]Hv. Lori ChangEGFR-NON AF AMERICANNormal>=60The [facility] HospitalComment on above:Performed By: #### LAZARUS CRUZ ####[facility] [address] [place], [place] [address]Rm. Lori ChangXR DEXA BONE DENSITYon 03-29-2022 XR [...] Electronically authenticated by: ABBE WEBSTER Date: 2022-03-29 12:[address] [place], [place] [address]XR KUB 1 VIEWon 17-60-2323BZ KUB 1 VIEWEXAMINATION: XR KUB 1 VIEW [...] Electronically authenticated by: ABBE WEBSTER Date: 2021-12-18 15:[address] [place] [address] Encounters Encounter DateEncounter TypeCare ProviderFacilityStart: 32-14-4420rmppmrlhdm Davon Quiroz NILLFacility:[facility]art: 40-82-7200pvbyprseptDsxejjh NILL Facility:[facility]ertart: 03-06-2025 End: 27-54-4412Xsupsjc encounter procedureCatalino London OD Work Phone: OphthalmologyComment on above: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-LAB Path Spec Makayla HospStart: 10-02-2024 End: 16-44-5890Ppqbyw outpatient new 30 minutesEugene Richie Rich DPM Work Phone: NOTA SWS PODIATRYComment on above:Pain of right foot (Primary Dx); Plantar keratosis; Right foot pain; Corns and callositiesStart: 10-02-2024 End: 15-26-2600rnluhxcunzNPVYNX Richie Hui AvailableStart: 04-23-2024 End: 55-77-4820Ocsyvfsqu encounterMarcy Estrella DO Work Phone: Internal MedicineComment on above:OrdersStart: 03-27-2024 End: 76-68-6839susczfvalhHXHJY D PATELFacility:[facility] Healthtart: 03-27-2024 End: 00-30-3083Shgtpba encounter procedureMarcy Pappas Estrella DO Work Phone: OrthopaedicsComment on above:Tendinopathy of right rotator cuff (Primary Dx); Degenerative tear of acetabular labrumStart: 03-05-2024 End: 12-48-0486Tvfmdae encounter procedureRandakerry S Madisynenslager OD Work Phone: OphthalmologyComment on above:Keratoconjunctivitis sicca of both eyes not specified as Sjogren's (Primary Dx); Retinal pigment epithelial mottling of macula; Drusen of right macula; Vitreous degeneration, bilateral; Pseudophakia of both eyesStart: 43-81-2436kkknfmuserSxbfpv A Radman RT(R) RadiologyComment on above:Radiology XRStart: 02-16-2024 End: 56-65-8718Nhhoroo encounter procedureCynthia Donato RT(R)[facility] [place] Comment on above:Tendinopathy of right rotator cuff (Primary Dx); Impingement syndrome of right shoulderStart: 02-16-2024 End: 72-45-0552Bxgincdcmv hospital visit by physicianBryson Arana 1 Work Phone: RadiologyComment on above:Acute pain of right shoulder [M25.511]Start: 01-31-2024 End: 42-66-7025Ipvneqc encounter procedureMarcy Estrella DO Work Phone: OrthopaedicsComment on above:Degenerative tear of acetabular labrum (Primary Dx); Pain in right hip; Primary osteoarthritis of right hipStart: 01-31-2024 End: 49-66-9704Hzbndraujf hospital visit by physicianBryson Arana 1 Work Phone: RadiologyComment on above:Pain [R52]Start: 02-28-2023 End: 26-25-8569Csqfoeh encounter procedureRanarturo S Madisynenslager OD Work Phone: OphthalmologyComment on above:Vitreous degeneration, bilateral (Primary Dx); Floaters in visual field, bilateral; Keratoconjunctivitis sicca of both eyes not specified as Sjogren's; SPK (superficial punctate keratitis), bilateral; Pseudophakia of both eyes; Retinal pigment epithelial mottling of macula; Drusen of right maculaStart: 12-07-2022 End: 15-62-8671tvlbttbvhnOT LONI HOYFacility:T5Scbdg: 09-10-2022 End: 97-23-2060gtwrypmrteIT LONI HOYFacility:R8Eoxnh: 08-27-2022 End: 68-34-4932cndjdbrygnQS LONI HOYFacility:E8Rmcst: 08-04-2022 End: 19-31-0377nicnsjzgsgOR CATALINA BRUNERFacility:R6Pvjsq: 05-12-2022 End: 81-88-3248ziwdvtqrloRT LONI HOYFacility:E6Qvayi: 05-04-2022 End: 89-90-6056cebmnnnxvlYK LONI HOYFacility:V3Qsbja: 03-29-2022 End: 86-25-4007vqwwsbkpsyEK LONI HOYFacility:G9Mwkcy: 12-18-2021 End: 89-59-0079cyevqsjfplKINGONJH MURPHYFacility:H1 Procedures DateProcedureProcedure DetailPerforming ClinicianStart: 39-97-3136Othoizgmmmtr ophthalmic imaging retinaRandall S Stephanielager OD Work Phone: Start: 29-36-6230Jmpw stain microscopyLoni Covarrubias MD Work Phone: Start: 12-67-5487Osdff shoulder complete minimum 2 viewsVizion Pappas Estrella DO Work Phone: Start: 41-68-1974Bbitw hip unilateral with pelvis 2-3 viewsVikas D Estrella DO Work Phone: Plan of Treatment DateCare ActivityDetailAuthorStart: 96-84-1304WZZ MACULA CIRRUS OU (BOTH EYES) OCT MACULA CIRRUS OU (BOTH EYES) OPHT Imaging Routine Retinal pigment epithelial mottling of maculaDrusen of macula Expected: 02/24/2027[facility] Work Phone: Comment on above:Expected: 02/24/2027Start: 08-01-2026 Urine microalbumin profileDTaP,Tdap,Td Vaccine (3 - Td or Tdap)[facility] Start: 96-22-1638XRX MACULA CIRRUS OU (BOTH EYES)OCT MACULA CIRRUS OU (BOTH EYES) OPHT Imaging Routine Retinal pigment epithelial mottling of maculaDrusen of right macula Expected: 02/23/2026[facility] Work Phone: Comment on above:Expected: 02/23/2026Start: 03-06-2025 End: 37-46-9373Qkmrpmd encounter gphpbflum24/30/2025 1:30 PM EDT Office Visit OPHT Ophthalmology [address] [place] [address] Catalino London S, OD [address] [place] [address] Annual Eye examOphthalmologyComment on above:Annual Eye examStart: 19-73-1783IGQ MACULA CIRRUS OU (BOTH EYES)OCT MACULA CIRRUS OU (BOTH EYES) OPHT Imaging Routine Retinal pigment epithelial mottling of maculaDrusen of right macula Expected: 02/17/2025[facility] Work Phone: Comment on above:Expected: 02/17/2025Start: 11-07-2024 Advance Directive DiscussionAdvance Directive DiscussionHolzer Hospitaltart: 29-20-6499Mahozgf CultureAerobic CultureAshtabula County Medical Centertart: 14-60-1894Wurvqnrgm culture of sputumAshtabula County Medical Centertart: 94-55-4481Tzzwq-19 Vaccine ( season)Covid-19 Vaccine ( season)Holzer Hospitaltart: 19-59-7699Pbito-19 Vaccine ( season) Covid-19 Vaccine ( season)[facility]: 70-83-8954Apwrhruyp vaccinationHolzer Hospitalt[facility]: 63-53-6096Hynbeqio ScreeningDiabetes Screening [facility]: 03-27-2024 End: 63-43-7367Ikykkvj encounter rwiksnuzr08/21/2024 1:15 PM EDT Office Visit Orthopaedics [address] [place] [address] Marcy Estrella, DO [address] [place] [address] 8 week right hip painOrthopaedicsComment on above:8 week right hip pain Start: 57-82-2639Ztpvhyv Directive DiscussionAdvance Directive Discussion [facility]: 70-34-0410Pilshpgcmk Health ScreeningBehavioral Health ScreeningHolzer Hospitalt[facility]: 49-17-3778Wvrpjusozk AssessmentDepression AssessmentHolzer Hospitalt[facility]: 60-14-3214Miced-19 Vaccine ( season) Covid-19 Vaccine ( season)[facility]: 72-49-2645Jwirlsoxj vaccinationInfluenza Vaccine (#1)[facility]: 37-38-2057FAEELAZ DIRECTIVE DISCUSSIONADVANCE DIRECTIVE DISCUSSIONHol[facility]: 17-36-9748XTSUJAWCOF ASSESSMENTDEPRESSION ASSESSMENTHolzer [facility]: 65-62-6309FIZYS-19 VACCINE (4 - Booster for Pfizer series)COVID-19 VACCINE (4 - Booster for Pfizer series)[facility]: 38-59-0432BTE Vaccine (1 - 1- dose 75+ series)RSV Vaccine (1 - 1-dose 75+ series)[facility]: 59-02-2443QDOY DENSITYBONE DENSITYHol[facility]: 15-23-8706Rtrtjhhci for osteoporosisBone Density ScreeningHol[facility]: 27-45-5522BGX Vaccine (1 - 1-dose 60+ series)RSV Vaccine (1 - 1-dose 60+ series)[facility]: 85-62-1498Ugjtqnwsb vaccinationLUNG CANCER SCREENINGHol[facility]: 75-80-3948Afgpkbqan for malignant neoplasm of lungLung Cancer ScreeningHolzer Hospitalt[facility]: 92-01-6758SCRWQIOA VACCINE (1 of 2)SHINGRIX VACCINE (1 of 2) [facility]: 29-64-7325WICYAEHP SCREENDIABETES SCREENMercy Health St. [facility] Start: 11-78-2718Iphdr microalbumin profileDTAP,TDAP,TD (1 - Tdap)[facility]: 55-91-4994OKJCEG PCP TEAM CHRONIC DISEASE VISITANNUAL PCP TEAM CHRONIC DISEASE VISITHolzer Hospital[facility]: 66-07-1024Jqylvle ScreeningAnxiety ScreeningHol[facility]: 12-92-3701Eiffqotspw ScreeningDepression ScreeningHol[facility]: 77-48-2854FZHUTPRTC C SCREENINGHEPATITIS C SCREENINGHol[facility]: 41-69-6171Twkdookxs C screeningHepatitis C ScreeningHol[facility]: 12-41-6237DNZQKQKIRAGIQUPOEMDKSbxsnkdgx Clinic Start: 62-91-7627KJXXUIDQJVFH: 65+ (1 - PCV)PNEUMOCOCCAL: 65+ (1 - PCV)[facility] HospitalOCT MACULA CIRRUS OU (BOTH EYES)OCT MACULA CIRRUS OU (BOTH EYES) OPHT Imaging Routine Retinal pigment epithelial mottling of maculaDrusen of right macula 02/28/2023 5:[facility] Work Phone: [facility] Immunizations Immunization DateImmunizationNotesCare AomoosjzNjnjdxlr44-62-1847oxfzerwev virus vaccine, unspecified formulationMarcy Estrella DO Work Phone: [facility] Payers DatePayer CategoryPayerPolicy [id number]-pay2020Medicare (Managed Care)[id number] [id number] [id number] 2..1.417712.3.57[id number] 2..1.595268.3.57[id number] 2..1.938508.3.57[id number] 2.16.840.1.171087.3.57[id number] 2.16.840.1.530721.3.57[id number] 2.16.840.1.807993.3.57[id number] 2.16.840.1.179054.3.57[id number] 2.16.840.1.659470.3.57[id number] 2.16.840.1.298419.3.57[id number] 2.16.840.1.15[id number] Health [id number] 2pnd9nnp-lfcf-3j25-u48x-[id number] /[id number] ns8ef0a2-3djh-8922-d8c5-33v5sq30060qCexzxfeXszxhu MCR [id number]-[id number]-[id number] 2.0.1.210034.3.579.2.531 Social History DateTypeDetailFacilityStart: 11-12-2020 End: 79-75-1260Obaqyax smoking status NHISSmokes tobacco dailyMercy Health St. [facility] Work Phone: History of tobacco useCigarette SmokerMercy Health St. [facility] Work Phone: Start: 11-12-2020 End: 54-57-6593Cinmrxumpd smoked current (pack per day) - Znjzukqf9Ngcvdrbqm ClinicStart: 11-12-2020 End: 07-82-0827Yiyvzxt use and exposureSmokeless tobacco non-userMercy Health St. [facility] Work Phone: Start: 02-28-2023 End: 47-60-8616Bmkstxp intakeLifetime non-drinker (finding)[facility] Start: 71-11-4769Ycwqqtz SDOH Alcohol Asqwvxeao0Abezqqbmh ClinicStart: 35-59-8882Xno Assigned At BirthFemaleCAdena Fayette Medical Centertart: 09-09-2020 End: 63-07-5713Xpjttly Use Disorder Identification Test - Consumption [AUDIT-C] [facility] HospitalHow often to you have a drink containing alcohol?NeverMercy Health St. Joseph Warren HospitalAverage Number of DrinksNot on fileHolzer Hospitaltart: 18-67-9792Drbola identityIdentifies as female gender (finding)[facility]: 09-08-2020 Sexual orientationHeterosexual (finding)[facility]: 10-02-2024 Alcoholic beverage intakeEx-drinker (finding)[facility] HealthcareTobacco smoking status NHISUnknown if ever smokedKettering Health Main Campus Work Phone: Start: 55-10-2632BacQrrqji (finding)[facility] Medical Equipment Procedure CodeEquipment CodeEquipment Original TextEquipment IdentifierDatesLens Iol 0d +15 Derik Uv Abs - [id number]: 73-55-5383Ildqryn on above:Description: -0.26Lens Iol 0d +15 Derik Uv Abs - [id number] Start: 14-28-7146Ggjtpqy on above:Description: -0.33 Clinical Notes 02-28-2023 to 03-06-2025 Note Date & ButbAlsoQhcghtnh56-62-4153 NoteDate of Procedure 03/06/2025. 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 OCT Macula Interpretation Right Eye Normal foveal contour. Findings include Drusen, RPE Irregularity; Negative for Intraretinal fluid, Subretinal fluid. Left Eye Normal foveal contour. Findings include Drusen, RPE Irregularity; Negative for Intraretinal fluid, Subretinal fluid. Interval Change Right Eye Stable. Left Eye Stable.GBQWT49-53-0406 NoteHNO ID: [id number] Author: CATALINO LONDON, OD Service: ? Author Type: PHOTOVOLTAIC PANEL INSTALLER Type: Progress Notes Filed: 03/06/2025 14:50 Note [...] magnifiers if needed March 06, 2025 2:43 [facility]04-30-2025 History of Present illness Narrative * [...] 06, 2025 2:43 PM documented in this encounterMer[facility] St. [facility]11-26-2024 History of Present illness Narrative* Dariusz [...] infection. 6. Reappoint p.r.n. documented in this encounterL[facility]eland [facility] HospitalByxguhnclx40-18-9182 Telephone encounter Note* Telephone Encounter - Victoria Watson - 04/23/2024 10:58 AM EDT April from [facility] is calling Marcy Estrella DO today with concern regarding evaluation that was faxed on February 20. Requested provider's signature to be faxed with it. Please advise. Patient has been identified by name and birthdate. Duration of symptoms: N/A Person calling: April Call patient at: [phone] ext [phone] Was an appointment scheduled: No Closing statement: Results or non-symptom based questions: Thank you for calling [facility], your call will be returned within the next business day. Thank you, Victoria Watson [facility]06-17-2024 Miscellaneous Notes* Telephone Encounter - Victoria Watson - 04/23/2024 10:58 AM EDT April from [facility] is calling Marcy Estrella DO today with concern regarding evaluation that was faxed on February 20. Requested provider's signature to be faxed with it. Please advise. Patient has been identified by name and birthdate. Duration of symptoms: N/A Person calling: April Call patient at: [phone] ext [phone] Was an appointment scheduled: No Closing statement: Results or non-symptom based questions: Thank you for calling [facility], your call will be returned within the next business day. Thank you, Victoria Watson documented in this encounterMercy Health St. [facility]05-21-2024 NoteHNO ID: [id number] Author: MARCY ESTRELLA DO Service: ? Author [...] tolerated Follow-up as needed Procedures Marcy Estrella [facility]05-21-2024 History of Present illness Narrative* Marcy Estrella [...] Procedures Marcy Estrella DO documented in this encounterMer[facility]04-29-2024 History of Present illness Narrative* Catalino London OD - 03/05/2024 5:03 PM EDT Documentation transcribed from Paper notes from [facility] Downtime ASSESSMENT/PLAN: 1. Keratoconjunctivitis sicca of [...] 05, 2024 5:03 PM documented in this encounterMer[facility] St. [facility]04-11-2024 History of Present illness Narrative* Cynthia [...] PATIENT PRESENTS WITH AN IMPLANTABLE OR ATTACHED TEMPLE MEAT CUTTER: No RADIOLOGY DEPARTMENT: General X-ray: Exam(s) Completed: Upper Extremity X- Ray(s): Shoulder, AP / TRUE AP / AXILLARY right PERIPHERAL IV DATA: Not applicable SIGNED BY: RT Anthony(R) February 16, 2024 1:02 PM documented in this encounterMercy Health St. [facility]04-11-2024 History of Present illness Narrative* Marcy [...] results and radiologist's interpretation, available in the [facility] health record. Images were reviewed [...] documented. Marcy Estrella DO documented in this encounterMercy Health St. [facility]03-26-2024 History of Present illness Narrative* Marcy [...] results and radiologist's interpretation, available in the [facility] health record. Images were reviewed [...] documented. Marcy Estrella DO documented in this encounterMer[facility]. [facility]04-24-2023 History of Present illness Narrative* Catalino [...] 28, 2023 1:19 PM documented in this encounterMer[facility] St. Joseph Warren HospitalEvaluation note* Diagnosis Vitreous degeneration, bilateral- Primary [...] this encounter [facility]Eval[facility]* Diagnosis Degenerative tear of acetabular labrum- Primary Pain in right hip Pain in joint, pelvic region and thigh Primary osteoarthritis of right hip Primary localized osteoarthrosis, pelvic region and thigh documented [facility] this [facility]* Diagnosis Tendinopathy of right rotator cuff- Primary Impingement syndrome of right shoulder Other affections of shoulder region, not elsewhere classified documented in this encounter [facility]* Diagnosis Keratoconjunctivitis sicca of both eyes not specified as Sjogren's- Primary Keratoconjunctivitis sicca, not specified as Sjogren's Retinal pigment epithelial mottling of macula Other retinal disorders 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, bilateral Pseudophakia of both eyes Lens replaced by other means documented in this encounter [facility] HospitalEval[facility]* Diagnosis Tendinopathy of right rotator cuff- Primary Degenerative tear of acetabular labrum documented in this encounter [facility]* Diagnosis Preop examination- Primary Preoperative examination, unspecified Combined forms of age-related cataract of both eyes Other and combined forms of senile cataract Chronic obstructive pulmonary disease, unspecified COPD type (HCC) Gastroesophageal reflux disease, unspecified whether esophagitis present Hyperlipidemia, unspecified hyperlipidemia type Tobacco abuse Tobacco use disorder Acute pain of right shoulder documented in this encounter [facility]* Diagnosis Preop examination- Primary Preoperative examination, unspecified Combined forms of age-related cataract of both eyes Other and combined forms of senile cataract Chronic obstructive pulmonary disease, unspecified COPD type (HCC) Gastroesophageal reflux disease, unspecified whether esophagitis present Hyperlipidemia, unspecified hyperlipidemia type Tobacco abuse Tobacco use disorder Pain Generalized pain documented in this encounter [facility]* Diagnosis Pain of right foot- Primary Plantar keratosis Right foot pain Pain in soft tissues of limb Corns and callosities documented in this encounter [facility]Eval[facility] department noteNo assessment information availableKettering Health Main Campus Work Phone: Evaluation note* Diagnosis Preop examination- [...] by other means documented in this encounter [facility] for referral (narrative)* Diagnostic Procedure Only (Routine) - ClosedSpecialtyDiagnoses / ProceduresReferred By ContactReferred To ContactXR IMAGING Diagnoses Acute pain of right shoulder Procedures XR SHOULDER GENERAL 3V OR MORE AP/TRUE AP/OTHER RIGHT RADEX SHOULDER COMPLETE MINIMUM 2 VIEWS Marcy Estrella, DO [address] [place] [address] [place] [address] Referral IDStatusFreeman Heart InstituteStwhiteville DateExpiration DateVisits RequestedVisits [id number] Auto-Generated Referral / [facility] for referral (narrative)* Diagnostic Procedure Only (Routine) - ClosedSpecialtyDiagnoses / ProceduresReferred By ContactReferred To ContactXR IMAGING Diagnoses Pain Procedures XR HIP GENERAL 3V PELV/AP/LAT RIGHT RADEX HIP UNILATERAL WITH PELVIS 2-3 VIEWS Marcy Estrella, DO [address] [place] [address] [place] [address] Referral IDStatus[facility] DateExpiration DateVisits RequestedVisits [id number] Auto-Generated Referral / [facility] for visit Narrative* Diagnostic Procedure Only (Routine) - ClosedSpecialtyDiagnoses / ProceduresReferred By ContactReferred To Contact XR IMAGING Diagnoses Acute pain of right shoulder Procedures XR SHOULDER GENERAL 3V OR MORE AP/TRUE AP/OTHER RIGHT RADEX SHOULDER COMPLETE MINIMUM 2 VIEWS Marcy Estrella, DO [address] [place] [address] [place] [address] Referral IDStatusReasonStwhiteville DateExpiration DateVisits RequestedVisits [id number] Auto-Generated Referral / [facility] HospitalReason for visit Narrative* Diagnostic Procedure Only (Routine) - ClosedSpecialtyDiagnoses / ProceduresReferred By ContactReferred To Contact XR IMAGING Diagnoses Pain Procedures XR HIP GENERAL 3V PELV/AP/LAT RIGHT RADEX HIP UNILATERAL WITH PELVIS 2-3 VIEWS Marcy Estrella, DO [address] [place] [address] [place] [address] Referral IDStatusReasonStwhiteville DateExpiration DateVisits RequestedVisits [id number] Auto-Generated Referral [facility] Summary [...] COMPLEX 45 MINS Marcy Estrella, DO [address] [place] [address] [facility] [address] [address] Referral IDStatusReasonStart DateExpiration DateVisits RequestedVisits [id number] Review Auto-Generated Referral /[id number] / ProceduresReferred By ContactReferred To ContactREHAB AND SPORTS THERAPY INS Diagnoses Tendinopathy of right rotator cuff Impingement syndrome of right shoulder Procedures CONSULT TO PHYSICAL THERAPY PHYSICAL THERAPY EVALUATION HIGH COMPLEX 45 MINS Marcy Estrella, DO [address] [place] [address] [facility] [address] [address] Referral IDStatusReasonStart DateExpiration DateVisits RequestedVisits [id number] Review Auto-Generated Referral Additional Source Comments INFORMATION SOURCE (unrecogn ized section and content) DATE CREATED AUTHOR 12/07/2022 [facility] DATE CREATED AUTHOR AUTHOR'S ORGANIZ ATION 10/05/2024 [facility] DATE CREATED AUTHOR AUTHOR'S ORGANIZ ATION 11/18/2024 [facility] DATE CREATED AUTHOR AUTHOR'S ORGANIZ ATION 03/11/2025 [facility] DATE CREATED AUTHOR AUTHOR'S ORGANIZ ATION 09/11/2025 [facility] Source Comments (unrecognize [...] Date Loni Covarrubias MD PCP - GeneralFamily Uqlozvdp85/25/10Team MemberRelationshipSpecialtyStart Date End Date Loni Covarrubias MD PCP - GeneralFamily Luiobwmq94/25/10Team MemberRelationshipSpecialtyStart Date End Date Loni Covarrubias MD PCP - GeneralFamily Qhnktxee78/25/10 MemberRelationshipSpecialtyStart Date End Date Loni Covarrubias MD PCP - GeneralFamily Xnpvoaca98/25/10 MemberRelationshipSpecialtyStart Date End Date Loni Covarrubias MD PCP - Generalmily Rmvczakz16/25/10Team MemberRelationshipSpecialtyStart Date End Date Loni Covarrubias MD PCP - Generalmi Khqkzoto85/25/10 MemberRelationshipSpecialtyStart Date End Date Loni Covarrubias MD PCP - Generalmi Zfjqdbwz81/25/10Team MemberRelationshipSpecialtyStart Date End Date Loni Covarrubias MD PCP - GeneralFamily Lcmxkefd12/25/10 MemberRelationshipSpecialtyStart Date End Date Loni Covarrubias MD [address] [place] [address] (Fax) PCP - GeneralFamily Gxwkdlze02/26/24 Team Status: Inactive Member Role Status Dates Loni Covarrubias MD Attending Provider Active Sta rt: November 06, 2024 End: November 06, 2024Team MemberRelationshipSpecialtyStart DateEnd Date Loni Covarrubias MD PCP - GeneralFamily Ytpgsauk55/25/10Te MemberRelationshipSpecialtyStart Date End Date Loni Covarrubias MD PCP - GeneralFamily Imyjoicy19/25/10 Goals (unrecognized section and content) Goals may [...] BE BASED ON THE PRIMARY CLINICAL RECORDS. [employer] provides no warranty or guarantee of the accuracy or completeness of information in this document.
[2025-10-16 08:25] VITALS: BP 135/68; PULSE 65; TEMP 36.3; O2SAT 98; BMI 24.6
[2025-10-16 10:30] VITALS: BP 98/70; PULSE 82; TEMP 36.5; O2SAT 94
[2025-10-16 10:45] VITALS: BP 123/94; PULSE 91; O2SAT 95
[2025-10-16 11:00] VITALS: BP 130/78; PULSE 77; O2SAT 96
== END 2025-10-16 11:00 | disposition home or self-care (01) ==
LOC: SURGOUT 08:14
PROVIDERS: PCP Family Medicine; Visit Provider Surgery
PROC: (CPT 45378; principal; 2025-10-16 09:15)
DX: R19.4 Change in bowel habit (principal); Q43.8 Other specified congenital malformations of intestine; Z86.0100 Personal history of colon polyps, unspecified; J44.9 Chronic obstructive pulmonary disease, unspecified; E78.5 Hyperlipidemia, unspecified; M81.0 Age-related osteoporosis without current pathological fracture; K21.9 Gastro-esophageal reflux disease without esophagitis; Z86.711 Personal history of pulmonary embolism; Z90.49 Acquired absence of other specified parts of digestive tract; Z79.82 Long term (current) use of aspirin; Z87.891 Personal history of nicotine dependence; Z96.659 Presence of unspecified artificial knee joint; K27.9 Peptic ulcer, site unspecified, unspecified as acute or chronic, without hemorrhage or perforation
CPT/HCPCS: 45378; J2704